=== PATIENT | female | born 1945 | race Caucasian/White ===

== ENCOUNTER 2018-06-15 10:57 | Inpatient (IN) ==
[2018-06-15] MEDS ORDERED: Sod Chloride 0.9% Inj 1,000 ML IV.SIG ONE (11:11)
--- NOTE | 2018-06-15 11:55 | XR ---
EXAM DATE: 06/15/2018 11:47 AM EDT AGE/SEX: 72 years / Female INDICATIONS: Shortness of breath and chest pain. CLINICAL DATA: This is the patient's initial encounter. Patient reports that signs and symptoms have been present for 2 days and indicates a pain score of 3/10. MEDICAL/SURGICAL HISTORY: None. None. COMPARISON: No prior exams available for comparison. FINDINGS: There is linear atelectasis at the left lung base. Minimal blunting of the right lateral costophrenic angle is noted. Heart size is enlarged. Degenerative changes of the spine and shoulders. CONCLUSION: Basilar atelectasis and possible tiny right effusion versus scarring. Electronically signed by: Austin Harman MD 06/15/2018 11:54 AM EDT
--- NOTE | 2018-06-15 13:28 | ED ---
HPI General Chief complaint: Nausea/Vomiting/Diarrhea Stated complaint: Nausea/D/V Time Seen by Provider: 06/15/18 11:04 Source: patient Mode of arrival: EMS Limitations: no limitations History of Present Illness HPI narrative: Patient is a 72 year old female who comes in due to diarrhea and lethargy. She says she started to have diarrhea Friday and had some vomiting Friday. She says she is caring for her father who is dieing. She says her cousin called EMS because she seemed dehydrated and lethargic. She says she had some abdominal pain, she took Miralax Friday, which helped with the pain. She denies fever or chills. She denies recent antibiotic use. She currently has no pain. Severity is moderate. Related Data Home Medications Medication Instructions Recorded Confirmed aspirin [Aspir-Low] 81 mg PO DAILY 06/15/18 06/15/18 cholecalciferol (vitamin D3) 2,000 unit PO DAILY 06/15/18 06/15/18 [Vitamin D3] ibuprofen 800 mg PO TID 06/15/18 06/15/18 omeprazole 20 mg PO DAILY 06/15/18 06/15/18 oxybutynin chloride 5 mg PO TID 06/15/18 06/15/18 simvastatin mg PO QPM 06/15/18 vit C,X-Mv-yaibc-lutein-zeaxan 1 tab PO BID 06/15/18 06/15/18 [PreserVision AREDS 2] Allergies Allergy/AdvReac Type Severity Reaction Status Date / Time erythromycin base Allergy Diarrhea Verified 06/15/18 11:12 Review of Systems ROS: all other systems reviewed are negative Constitutional Denies chills, Denies fever(s) and Reports lethargy ENT Denies dizziness Cardiovascular Denies chest pain Respiratory Denies cough and Denies dyspnea Gastrointestinal Reports diarrhea and Reports vomiting Genitourinary Denies dysuria Musculoskeletal Denies myalgias and Denies arthralgias Integumentary/Breasts Denies lesions and Denies rash Neurologic Denies focal weakness and Denies numbness PMFSH Social History Social History Substance History: No History of Abuse Smoking Status: Never smoker How Often Do You Have a Drink Containing Alcohol: Never Recent Travel in [facility] within the Last 8 Weeks: No Recent Out of Country Travel within the Last 8 Weeks: No Immunization History Tetanus Immunization: Unsure Hx Influenza Vaccine This Season: Yes Exam Narrative Exam Narrative: GENERAL: Awake and alert, in no acute distress. SKIN: Focused skin assessment warm/dry. HEAD: Atraumatic. Normocephalic. EYES: Pupils equal and round. No scleral icterus. No injection or drainage. ENT: No nasal bleeding or discharge. Mucous membranes dry. NECK: Trachea midline. No JVD. CARDIOVASCULAR: Tachycardia. No murmur appreciated. RESPIRATORY: No accessory muscle use. Clear to auscultation. Breath sounds equal bilaterally. GASTROINTESTINAL: Abdomen soft, non-tender, nondistended. MUSCULOSKELETAL: No obvious deformities. No clubbing. No cyanosis. No edema. NEUROLOGICAL: Awake and alert. No obvious cranial nerve deficits. Motor grossly within normal limits. Normal speech. PSYCHIATRIC: Appropriate mood and affect; insight and judgment normal. Course Initial Documented Vital Signs Temperature 97.8 F 06/15/18 11:04 Pulse Rate 120 H 06/15/18 11:04 Respiratory Rate 18 06/15/18 11:04 Blood Pressure 168/81 H 06/15/18 11:04 Pulse Oximetry 96 06/15/18 11:04 Last Documented Vital Signs Temperature 97.8 F 06/15/18 11:04 Pulse Rate 118 H 06/15/18 15:27 Respiratory Rate 20 06/15/18 15:27 Blood Pressure 150/84 H 06/15/18 15:27 Pulse Oximetry 96 06/15/18 15:27 Medical Decision Making MDM Narrative Medical decision making narrative: Patient is a 72 year old female who comes in due to diarrhea and lethargy. IV established, labs sent. Labs concerning for acute renal failure with a BUN of 83 and a creatinine of 3.8. CAT scan performed shows bilateral obstructing renal stones. Patient given IV fluids. Given a dose of Rocephin. I spoke with urology who would like the patient transferred to the main hospital for likely intervention. Patient admitted for further management. Medical Screen Exam Complete: Yes Emergency Medical Condition: Yes Differential Diagnosis Differential Diagnosis: Dehydration versus electrolyte abnormality versus colitis versus UTI Medical Records Medical records reviewed: Yes I reviewed the patient's medical records. Lab Data Lab results reviewed: Yes I reviewed the patient's lab results. Result diagrams: 06/15/18 13:15 06/15/18 13:15 Lab Results 06/15/18 06/15/18 06/15/18 Range/Units 12:15 13:15 13:15 CBC w Diff Slide review pending WBC 15.9 H (4.0-11.0) th/mm3 RBC 4.48 (4.00-5.30) mil/mm3 Hgb 13.2 (11.6-15.3) gm/dL Hct 39.5 (35.0-46.0) % MCV 88.2 (80.0-100.0) fL MCH 29.4 (27.0-34.0) pg MCHC 33.4 (32.0-36.0) % RDW 13.3 (11.6-17.2) % Plt Count 342 (150-450) th/mm3 MPV 7.9 (7.0-11.0) fL Neut % (Auto) 90.2 H (16.0-70.0) % Lymph % (Auto) 5.1 L (9.0-44.0) % [place] % (Auto) 3.8 (0.0-8.0) % Eos % (Auto) 0.1 (0.0-4.0) % Baso % (Auto) 0.8 (0.0-2.0) % Neut # (Auto) 14.4 H (1.8-7.7) th/mm3 Lymph # (Auto) 0.8 L (1.0-4.8) th/mm3 [place] # (Auto) 0.6 (0.0-0.9) th/mm3 Eos # (Auto) 0.0 (0.0-0.4) th/mm3 Baso # (Auto) 0.1 (0.0-0.2) th/mm3 WBC Differential Manual diff final Seg Neuts % (Manual) 59 (16-70) % Band Neuts % (Manual) 30 H (0-6) % Lymphocytes % (Manual) 5 L (9-44) % Monocytes % (Manual) 5 (0-8) % Metamyelocytes % (Man) 1 (0-1) % Abs Neuts (Manual) 14.3 H (1.8-7.7) th/mm3 Differential Comment . Platelet Estimate Normal (Normal) Platelet Morphology Normal (Normal) RBC Morphology Normal (Normal) PT 13.7 H (9.8-11.6) sec INR 1.4 Ratio APTT 32.1 H (24.3-30.1) sec Sodium (136-145) meq/L Potassium (3.5-5.1) meq/L Chloride (98-107) meq/L Carbon Dioxide (21.0-32.0) meq/L Anion Gap (5-15) meq/L BUN (7-18) mg/dL Creatinine (0.50-1.00) mg/dL Estimated GFR (>89) mL/min Random Glucose (74-106) mg/dL Lactic Acid 1.0 (0.4-2.0) mmol/L Calcium (8.5-10.1) mg/dL Total Bilirubin (0.2-1.0) mg/dL AST (15-37) U/L ALT (10-53) U/L Alkaline Phosphatase (45-117) U/L Total Creatine Kinase (26-192) U/L CK-MB (CK-2) (0.5-3.6) ng/mL CK-MB (CK-2) % (0.0-4.0) % Troponin I (0.02-0.05) ng/mL Total Protein (6.4-8.2) g/dL Albumin (3.4-5.0) g/dL Ur Collection Type Urine Color (Yellw/Straw) Urine Clarity (Clear) Urine pH (5.0-8.5) Ur Specific [place] (1.002-1.035) Urine Protein (Neg-Trace) mg/dL Urine Glucose (UA) (Negative) mg/dL Urine Ketones (Negative) mg/dL Urine Occult Blood (Negative) Urine Nitrate (Negative) Urine Bilirubin (Negative) Urine Urobilinogen (Less than 2) mg/dL Ur Leukocyte Esterase (Negative) Urine RBC (0-3) /hpf Urine WBC (0-5) /hpf Urine WBC Clumps (None) Ur Squamous Epith Cells (0-5) /hpf Ur Transition Epith Cell (None) /hpf Amorphous Sediment (None) /hpf Urine Bacteria (None) /hpf Micro UA Comment Ur Microscopic Review Urine Culture Comments Urine Collection Time hours 06/15/18 06/15/18 Range/Units 13:15 14:00 CBC w Diff WBC (4.0-11.0) th/mm3 RBC (4.00-5.30) mil/mm3 Hgb (11.6-15.3) gm/dL Hct (35.0-46.0) % MCV (80.0-100.0) fL MCH (27.0-34.0) pg MCHC (32.0-36.0) % RDW (11.6-17.2) % Plt Count (150-450) th/mm3 MPV (7.0-11.0) fL Neut % (Auto) (16.0-70.0) % Lymph % (Auto) (9.0-44.0) % [place] % (Auto) (0.0-8.0) % Eos % (Auto) (0.0-4.0) % Baso % (Auto) (0.0-2.0) % Neut # (Auto) (1.8-7.7) th/mm3 Lymph # (Auto) (1.0-4.8) th/mm3 [place] # (Auto) (0.0-0.9) th/mm3 Eos # (Auto) (0.0-0.4) th/mm3 Baso # (Auto) (0.0-0.2) th/mm3 WBC Differential Seg Neuts % (Manual) (16-70) % Band Neuts % (Manual) (0-6) % Lymphocytes % (Manual) (9-44) % Monocytes % (Manual) (0-8) % Metamyelocytes % (Man) (0-1) % Abs Neuts (Manual) (1.8-7.7) th/mm3 Differential Comment Platelet Estimate (Normal) Platelet Morphology (Normal) RBC Morphology (Normal) PT (9.8-11.6) sec INR Ratio APTT (24.3-30.1) sec Sodium 135 L (136-145) meq/L Potassium 3.6 (3.5-5.1) meq/L Chloride 107 (98-107) meq/L Carbon Dioxide 11.2 L (21.0-32.0) meq/L Anion Gap 17 H (5-15) meq/L BUN 83 H (7-18) mg/dL Creatinine 3.80 H (0.50-1.00) mg/dL Estimated GFR 12 L (>89) mL/min Random Glucose 106 (74-106) mg/dL Lactic Acid (0.4-2.0) mmol/L Calcium 8.5 (8.5-10.1) mg/dL Total Bilirubin 0.3 (0.2-1.0) mg/dL AST 19 (15-37) U/L ALT 15 (10-53) U/L Alkaline Phosphatase 155 H (45-117) U/L Total Creatine Kinase 251 H (26-192) U/L CK-MB (CK-2) 8.3 H (0.5-3.6) ng/mL CK-MB (CK-2) % 3.3 (0.0-4.0) % Troponin I Less than 0.02 L (0.02-0.05) ng/mL Total Protein 6.5 (6.4-8.2) g/dL Albumin 2.2 L (3.4-5.0) g/dL Ur Collection Type Clean catch Urine Color Yellow (Yellw/Straw) Urine Clarity Cloudy H (Clear) Urine pH 6.0 (5.0-8.5) Ur Specific [place] 1.020 (1.002-1.035) Urine Protein 30 H (Neg-Trace) mg/dL Urine Glucose (UA) Negative (Negative) mg/dL Urine Ketones Negative (Negative) mg/dL Urine Occult Blood Moderate H (Negative) Urine Nitrate Negative (Negative) Urine Bilirubin Negative (Negative) Urine Urobilinogen 0.2 (Less than 2) mg/dL Ur Leukocyte Esterase Moderate H (Negative) Urine RBC 15-50 H (0-3) /hpf Urine WBC 51-189 H (0-5) /hpf Urine WBC Clumps Moderate H (None) Ur Squamous Epith Cells 6-10 H (0-5) /hpf Ur Transition Epith Cell 1-5 H (None) /hpf Amorphous Sediment Moderate H (None) /hpf Urine Bacteria Moderate H (None) /hpf Micro UA Comment Culture indicated Ur Microscopic Review Microscopic reviewed Urine Culture Comments Culture indicated Urine Collection Time 1400 hours Imaging Data Radiologist's impression: Chest X-Ray 06/15/18 11:11 CONCLUSION: Basilar atelectasis and possible tiny right effusion versus scarring. Head CT 06/15/18 11:11 CONCLUSION: 1. No acute findings. . Abdomen/Pelvis CT 06/15/18 13:56 There are degenerative changes of the spine noted. Severe osteoarthritis of the right hip is present with a remote fracture deformity of the right femoral neck. No pleural or pericardial effusions are seen. Cholelithiasis is identified. Spleen, liver, pancreas, bilateral adrenal glands unremarkable. Small hiatal hernia. Right kidney demonstrates a nonobstructing stone at the upper pole measuring 3.8 mm. There are nonobstructing stones at the lower pole measuring up to 1.3 cm in transverse dimension. There is moderate right-sided hydronephrosis secondary to an obstructing calculus within the proximal ureter measuring 9.2 mm on axial image 43. There are 2 tiny calculi measuring 4.1 mm across at the lower pole of the left kidney and a 9 mm left proximal ureteral stone on image 45. There is moderate left-sided hydronephrosis. 3.69 m simple cyst left lower pole kidney. Urinary bladder and uterus are unremarkable. There is diverticulosis of the sigmoid colon with abnormal circumferential bowel wall thickening involving the sigmoid colon through the ascending colon with mild induration of the pericolonic fat concerning for colitis. The appendix is normal. There is a fat-containing umbilical hernia measuring 2.2 cm at the abdominal wall in transverse dimension, hernia sac measuring 6.6 cm in transverse dimension. Uterus and adnexa are unremarkable. CONCLUSION: 1. Bilateral renal calculi and obstructing proximal ureteral stones are noted. 2. Small hiatal hernia. 3. Abnormal colonic wall thickening is seen concerning for colitis. 4. Fat-containing umbilical hernia. 5. Cholelithiasis. ECG Data EKG Prior to Arrival: No Attestation: I personally reviewed and interpreted this ECG as follows: Interpretation: ECG shows sinus tachycardia at a rate of 116, no ST elevation or depression Discharge Plan Discharge Disposition Patient Disposition: 30 Still Patient Discharge Condition Condition: Stable Discharge Details Diagnosis: Acute renal failure (ARF), Acute UTI, Renal calculi Physicians Team ED Provider: Birgit Grant Primary Care Provider: Do Sarah Barreto Rxs /Orders / Referrals /Forms Prescriptions: No Action ibuprofen 800 mg Tablet 800 mg PO TID RF: 0 aspirin [Aspir-Low] 81 mg Tablet,Delayed Release (Dr/Ec) 81 mg PO DAILY RF: 0 simvastatin 20 mg Tablet PO QPM RF: 0 oxybutynin chloride 5 mg Tablet 5 mg PO TID RF: 0 omeprazole 20 mg Tablet,Delayed Release (Dr/Ec) 20 mg PO DAILY RF: 0 cholecalciferol (vitamin D3) [Vitamin D3] 2,000 unit Tablet 2,000 unit PO DAILY RF: 0 vit C,V-Jw-vlhil-lutein-zeaxan [PreserVision AREDS 2] 628-188-32-1 mg-unit-mg- mg Capsule 1 tab PO BID RF: 0 Discharge Interventions Interventions: Vital Signs Last Done: 06/15/18 15:27 Status ED Status: With Doctor
[2018-06-15 13:30] LABS: Baso # (Auto) 0.1 th/mm3 (0.0-0.2); Baso % (Auto) 0.8 % (0.0-2.0); Eos % (Auto) 0.1 % (0.0-4.0); Hematocrit 39.5 % (35.0-46.0); Hemoglobin 13.2 gm/dL (11.6-15.3); Lymph # (Auto) 0.8 th/mm3 (1.0-4.8); Lymph % (Auto) 5.1 % (9.0-44.0); Mean Corpuscular HGB Conc 33.4 % (32.0-36.0); Mean Corpuscular Hemoglobin 29.4 pg (27.0-34.0); Mean Corpuscular Volume 88.2 fL (80.0-100.0); Mean Platelet Volume 7.9 fL (7.0-11.0); Mono # (Auto) 0.6 th/mm3 (0.0-0.9); Mono % (Auto) 3.8 % (0.0-8.0); Neut # (Auto) 14.4 th/mm3 (1.8-7.7); Neut % (Auto) 90.2 % (16.0-70.0); Platelet Count 342 th/mm3 (150-450); Red Blood Count 4.48 mil/mm3 (4.00-5.30); Red Cell Distribution Width 13.3 % (11.6-17.2); White Blood Count 15.9 th/mm3 (4.0-11.0)
[2018-06-15 13:40] LABS: Chloride 107 meq/L (98-107); Potassium 3.6 meq/L (3.5-5.1); Sodium 135 meq/L (136-145)
[2018-06-15 13:44] LABS: Albumin 2.2 g/dL (3.4-5.0); Anion Gap 17 meq/L (5-15); Blood Urea Nitrogen 83 mg/dL (7-18); Calcium 8.5 mg/dL (8.5-10.1); Carbon Dioxide 11.2 meq/L (21.0-32.0); Glucose,Random 106 mg/dL (74-106)
[2018-06-15 13:46] LABS: Activated Partial Thrombo Time 32.1 sec (24.3-30.1); INR 1.4 Ratio; Prothrombin Time 13.7 sec (9.8-11.6)
[2018-06-15 13:47] LABS: Alanine Aminotransferase 15 U/L (10-53); Aspartate Aminotransferase 19 U/L (15-37); Glomerular Filtration Rate 12 mL/min (>89)
[2018-06-15 13:49] LABS: Total Protein 6.5 g/dL (6.4-8.2)
[2018-06-15 13:50] LABS: Alkaline Phosphatase 155 U/L (45-117); Creatine Kinase 251 U/L (26-192)
[2018-06-15 13:55] LABS: Lymphocytes 5 % (9-44); Metamyelocytes 1 % (0-1); Monocytes 5 % (0-8); Platelet Estimate Normal (Normal); Platelet Morphology Normal (Normal); RBC Morphology Normal (Normal)
[2018-06-15 14:02] LABS: CKMB Percent 3.3 % (0.0-4.0); Creatine Kinase MB 8.3 ng/mL (0.5-3.6)
[2018-06-15 14:14] LABS: Bilirubin,Urine Negative (Negative); Clarity,Urine Cloudy (Clear); Color,Urine Yellow (Yellw/Straw); Glucose,Urine (UA) Negative (Negative); Leukocyte Esterase,Urine Moderate (Negative); Nitrite,Urine Negative (Negative); Urobilinogen,Urine 0.2 mg/dL (Less than 2)
[2018-06-15 14:31] LABS: Collection Time,Urine 1400 hours
[2018-06-15 14:36] LABS: WBC,Urine 51-189 /hpf (0-5)
[2018-06-15] MEDS: Sod Chloride 0.9% Inj 1,000 ML IV.SIG SCH (14:36)
[2018-06-15 14:44] LABS: Amorphous Sediment,Urine Moderate /hpf; Bacteria,Urine Moderate /hpf
--- NOTE | 2018-06-15 14:46 | CT ---
EXAM DATE: 06/15/2018 2:42 PM EDT AGE/SEX: 72 years / Female INDICATIONS: Lethargic CLINICAL DATA: This is the patient's initial encounter. Patient reports that signs and symptoms have been present for 1 day and indicates a pain score of 0/10. MEDICAL/SURGICAL HISTORY: None. None. RADIATION DOSE: 49.27 CTDI (mGy) COMPARISON: No prior exams available for comparison. TECHNIQUE: CT of the head without contrast. Using automated exposure control and adjustment of the mA and/or kV according to patient size, radiation dose was kept as low as reasonably achievable to ob tain optimal diagnostic quality images. DICOM format image data is available electronically for revi ew and comparison. FINDINGS: Subcentimeter focus of decreased attenuation in the right basal ganglia internal capsule region havmarci g the appearance of a remote lacunar infarct. No signs of acute infarct, hemorrhage or mass. No fract ures. CONCLUSION: 1. No acute findings. . Electronically signed by: Austin Harman MD 06/15/2018 2:44 PM EDT
--- NOTE | 2018-06-15 14:55 | CT ---
EXAM DATE: 06/15/2018 2:46 PM EDT AGE/SEX: 72 years / Female INDICATIONS: Nausea vomiting diarrhea CLINICAL DATA: This is the patient's initial encounter. Patient reports that signs and symptoms have been present for 1 day and indicates a pain score of 0/10. MEDICAL/SURGICAL HISTORY: None. None. RADIATION DOSE: 24.92 CTDI (mGy) COMPARISON: No prior exams available for comparison. TECHNIQUE: Multiple contiguous axial images were obtained through the abdomen. Images were obtained using multiple row detector helical technique. Using automated exposure control and adjustment of the mA and/or kV according to patient size, radiation dose was kept as low as reasonably achievable to o btain optimal diagnostic quality images. DICOM format image data is available electronically for rev iew and comparison. FINDINGS: There are degenerative changes of the spine noted. Severe osteoarthritis of the right hip is present with a remote fracture deformity of the right femoral neck. No pleural or pericardial effusions are s een. Cholelithiasis is identified. Spleen, liver, pancreas, bilateral adrenal glands unremarkable. Sm all hiatal hernia. Right kidney demonstrates a nonobstructing stone at the upper pole measuring 3.8 m m. There are nonobstructing stones at the lower pole measuring up to 1.3 cm in transverse dimension. There is moderate right-sided hydronephrosis secondary to an obstructing calculus within the proximal ureter measuring 9.2 mm on axial image 43. There are 2 tiny calculi measuring 4.1 mm across at the l ower pole of the left kidney and a 9 mm left proximal ureteral stone on image 45. There is moderate l eft-sided hydronephrosis. 3.69 m simple cyst left lower pole kidney. Urinary bladder and uterus are u nremarkable. There is diverticulosis of the sigmoid colon with abnormal circumferential bowel wall th ickening involving the sigmoid colon through the ascending colon with mild induration of the pericolo annamaria fat concerning for colitis. The appendix is normal. There is a fat-containing umbilical hernia me asuring 2.2 cm at the abdominal wall in transverse dimension, hernia sac measuring 6.6 cm in transver se dimension. Uterus and adnexa are unremarkable. CONCLUSION: 1. Bilateral renal calculi and obstructing proximal ureteral stones are noted. 2. Small hiatal hernia. 3. Abnormal colonic wall thickening is seen concerning for colitis. 4. Fat-containing umbilical hernia. 5. Cholelithiasis. Electronically signed by: Austin Harman MD 06/15/2018 2:54 PM EDT
[2018-06-15] MEDS ORDERED: Bisacodyl 10 MG Supp RECTAL PRN (15:34)
[2018-06-15] MEDS ORDERED: Acetaminophen 325 MG Tablet PO PRN (15:34)
[2018-06-15] MEDS: Sod Chloride 0.9% Inj 1,000 ML IV.CONT SCH (16:03)
[2018-06-15] MEDS ORDERED: Metoprolol Inj 5 MG/5 ML Vial IV.PUSH ONE (16:10)
[2018-06-15] MEDS ORDERED: Metoprolol Inj 5 MG/5 ML Vial IV.PUSH STA ×2 (16:11→16:55)
--- NOTE | 2018-06-15 17:10 | P.HP ---
History of Present Illness Service: Hospitalist Primary Care Physician: Do Sarah Barreto Chief Complaint: Nausea, vomiting, diarrhea. History of Present Illness: Ms. Mac was seen in the emergency room. She is somewhat lethargic and drowsy and thus difficult to obtain proper history and physical. Ms. Mac is a 72-year-old female with a history of hyperlipidemia, GERD who presents to the emergency department on 06/15/2018 due to nausea vomiting and diarrhea. Her symptoms started on 06/12/2018. One of patient's family members called EMS because she was very lethargic and appeared dehydrated. CT abdomen pelvis shows bilateral renal calculi and obstructing proximal ureteral stones. Moderate left-sided hydronephrosis was noted. Patient's creatinine is 3.8 on admission baseline unknown. WBC 15.9. Later during ED stay, patient developed atrial fibrillation for which she received IV metoprolol. - Diagnosis (1) Hydronephrosis (2) Acute kidney injury (3) Renal calculi Inpatient Certification: I certify that the inpatient services were ordered in accordance with Medicare regulations governing the order. 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 - Medical / Surgical Hx Neg / Unobtainable Medical Problems Denied: Unable to Obtain - Tobacco History Smoking Status: Never smoker - Alcohol History How Often Do You Have a Drink Containing Alcohol: Never - Substance Use History Substance History: No History of Abuse - Travel History Recent Travel in the [place] Within the Last 8 Weeks: No Recent Travel Out of the Country Within the Last 8 Weeks: No - Immunization History Tetanus Immunization: Unsure Hx Influenza Vaccine This Season: Yes Medications and Allergies Active Medications: Active Medications Acetaminophen (Tylenol) 650 mg PO Q4H PRN PRN Reason: Headache, fever, pain 1-5 Al Hydroxide/Mg Hydroxide (Milk Of Magnesia Liq) 30 ml PO Q12H PRN PRN Reason: Mild Constipation Bisacodyl (Dulcolax Supp) 10 mg RECTAL DAILY PRN PRN Reason: SEVERE CONSITIPATION Sodium Chloride (Ns Inj) 1,000 mls @ 0 mls/hr IV.SIG BOLUS [facility] Last Infusion: 06/15/18 15:26 Dose: Infused Sodium Chloride (Ns Inj) 1,000 mls @ 100 mls/hr IV.CONT .Q10H [facility] Last Admin: 06/15/18 16:03 Dose: 100 mls/hr Lactulose (Lactulose Liq) 30 ml PO DAILY PRN PRN Reason: SEVERE CONSITIPATION Ondansetron HCl (Zofran Inj) 4 mg IV.PUSH Q6H PRN PRN Reason: NAUSEA OR VOMITING Sennosides (Senokot) 17.2 mg PO Q12H PRN PRN Reason: Moderate Constipation Sodium Chloride (Ns Flush) 2 ml IV.FLUSH PRN PRN PRN Reason: FLUSH AFTER USING IV ACCESS Allergies Allergy/AdvReac Type Severity Reaction Status Date / Time erythromycin base Allergy Diarrhea Verified 06/15/18 11:12 Home Medications Medication Instructions Recorded Confirmed Type aspirin [Aspir-Low] 81 mg PO DAILY 06/15/18 06/15/18 History cholecalciferol (vitamin D3) 2,000 unit PO DAILY 06/15/18 06/15/18 History [Vitamin D3] ibuprofen 800 mg PO TID 06/15/18 06/15/18 History omeprazole 20 mg PO DAILY 06/15/18 06/15/18 History oxybutynin chloride 5 mg PO TID 06/15/18 06/15/18 History simvastatin mg PO QPM 06/15/18 History vit C,E-Vn-qkomu-lutein-zeaxan 1 tab PO BID 06/15/18 06/15/18 History [PreserVision AREDS 2] Exam Vital signs: Vital Signs 06/15/18 11:04 06/15/18 14:06 06/15/18 15:27 Temperature 97.8 F Pulse Rate 120 H 105 H 118 H Respiratory Rate 18 20 20 Blood Pressure 168/81 H 150/84 H 150/84 H Pulse Oximetry 96 97 96 06/15/18 16:05 06/15/18 16:28 06/15/18 17:07 Temperature Pulse Rate 131 H 108 H 104 H Respiratory Rate 18 18 20 Blood Pressure 155/84 H 113/84 153/86 H Pulse Oximetry 96 96 96 Intake & Output 06/14/18 06/15/18 06/15/18 18:59 06:59 18:59 Intake Total 2099 Output Total 200 / 200 Balance 1900 / 1900 Weight 113.398 kg Intake: IV 2099 NS Inj 1,000 ML @ Wide Open IV. 1999 SIG BOLUS [place] Rx#:[id number] Rocephin Inj 1,000 MG In NS Inj 100 / 100 100 ML @ 200 mls/hr IV.SIG ONCE ONE Rx#:[id number] Output: Urine 200 / 200 Other: # Voids 1 Narrative: GENERAL: Drowsy and Lethargic. Wakes up on verbal commands but unable to give much history. However, she is oriented to person, place, month/year and name of the president. Obese. SKIN: No rashes, ecchymoses or lesions. Warm and dry. HEAD: Atraumatic. Normocephalic. No temporal or scalp tenderness. EYES: Pupils equal round and reactive. No injection or drainage. ENT: Nose without bleeding, purulent drainage or septal hematoma. Airway patent. NECK: Trachea midline. No lymphadenopathy. Supple, nontender, no meningeal signs. CARDIOVASCULAR: Tachycardic, Irreg Irreg without murmurs, gallops, or rubs. No JVD. RESPIRATORY: Clear to auscultation. Breath sounds equal bilaterally. No wheezes , rales, or rhonchi. GASTROINTESTINAL: Abdomen soft, non-tender, nondistended. No guarding. MUSCULOSKELETAL: Extremities without clubbing, cyanosis. Trace edema, tender to palpation of lower ext. NEUROLOGICAL: Drowsy, lethargic. Results - Labs CBC & Chem 7: 06/15/18 13:15 06/15/18 13:15 Labs: Laboratory Results - last 24 hr 06/15/18 06/15/18 06/15/18 12:15 13:15 13:15 CBC w Diff Slide review pending WBC 15.9 H RBC 4.48 Hgb 13.2 Hct 39.5 MCV 88.2 MCH 29.4 MCHC 33.4 RDW 13.3 Plt Count 342 MPV 7.9 Neut % (Auto) 90.2 H Lymph % (Auto) 5.1 L Boyd % (Auto) 3.8 Eos % (Auto) 0.1 Baso % (Auto) 0.8 Neut # (Auto) 14.4 H Lymph # (Auto) 0.8 L Boyd # (Auto) 0.6 Eos # (Auto) 0.0 Baso # (Auto) 0.1 WBC Differential Manual diff final Seg Neuts % (Manual) 59 Band Neuts % (Manual) 30 H Lymphocytes % (Manual) 5 L Monocytes % (Manual) 5 Metamyelocytes % (Man) 1 Abs Neuts (Manual) 14.3 H Differential Comment . Platelet Estimate Normal Platelet Morphology Normal RBC Morphology Normal PT 13.7 H INR 1.4 APTT 32.1 H Sodium Potassium Chloride Carbon Dioxide Anion Gap BUN Creatinine Estimated GFR Random Glucose Lactic Acid 1.0 Calcium Total Bilirubin AST ALT Alkaline Phosphatase Total Creatine Kinase CK-MB (CK-2) CK-MB (CK-2) % Troponin I Total Protein Albumin Ur Collection Type Urine Color Urine Clarity Urine pH Ur Specific [place] Urine Protein Urine Glucose (UA) Urine Ketones Urine Occult Blood Urine Nitrate Urine Bilirubin Urine Urobilinogen Ur Leukocyte Esterase Urine RBC Urine WBC Urine WBC Clumps Ur Squamous Epith Cells Ur Transition Epith Cell Amorphous Sediment Urine Bacteria Micro UA Comment Ur Microscopic Review Urine Culture Comments Urine Collection Time 06/15/18 06/15/18 13:15 14:00 CBC w Diff WBC RBC Hgb Hct MCV MCH MCHC RDW Plt Count MPV Neut % (Auto) Lymph % (Auto) Boyd % (Auto) Eos % (Auto) Baso % (Auto) Neut # (Auto) Lymph # (Auto) Boyd # (Auto) Eos # (Auto) Baso # (Auto) WBC Differential Seg Neuts % (Manual) Band Neuts % (Manual) Lymphocytes % (Manual) Monocytes % (Manual) Metamyelocytes % (Man) Abs Neuts (Manual) Differential Comment Platelet Estimate Platelet Morphology RBC Morphology PT INR APTT Sodium 135 L Potassium 3.6 Chloride 107 Carbon Dioxide 11.2 L Anion Gap 17 H BUN 83 H Creatinine 3.80 H Estimated GFR 12 L Random Glucose 106 Lactic Acid Calcium 8.5 Total Bilirubin 0.3 AST 19 ALT 15 Alkaline Phosphatase 155 H Total Creatine Kinase 251 H CK-MB (CK-2) 8.3 H CK-MB (CK-2) % 3.3 Troponin I Less than 0.02 L Total Protein 6.5 Albumin 2.2 L Ur Collection Type Clean catch Urine Color Yellow Urine Clarity Cloudy H Urine pH 6.0 Ur Specific [place] 1.020 Urine Protein 30 H Urine Glucose (UA) Negative Urine Ketones Negative Urine Occult Blood Moderate H Urine Nitrate Negative Urine Bilirubin Negative Urine Urobilinogen 0.2 Ur Leukocyte Esterase Moderate H Urine RBC 15-50 H Urine WBC 51-189 H Urine WBC Clumps Moderate H Ur Squamous Epith Cells 6-10 H Ur Transition Epith Cell 1-5 H Amorphous Sediment Moderate H Urine Bacteria Moderate H Micro UA Comment Culture indicated Ur Microscopic Review Microscopic reviewed Urine Culture Comments Culture indicated Urine Collection Time 1400 - Imaging Impressions Chest X-Ray 06/15/18 11:11 CONCLUSION: Basilar atelectasis and possible tiny right effusion versus scarring. Head CT 06/15/18 11:11 CONCLUSION: 1. No acute findings. . Abdomen/Pelvis CT 06/15/18 13:56 There are degenerative changes of the spine noted. Severe osteoarthritis of the right hip is present with a remote fracture deformity of the right femoral neck. No pleural or pericardial effusions are seen. Cholelithiasis is identified. Spleen, liver, pancreas, bilateral adrenal glands unremarkable. Small hiatal hernia. Right kidney demonstrates a nonobstructing stone at the upper pole measuring 3.8 mm. There are nonobstructing stones at the lower pole measuring up to 1.3 cm in transverse dimension. There is moderate right-sided hydronephrosis secondary to an obstructing calculus within the proximal ureter measuring 9.2 mm on axial image 43. There are 2 tiny calculi measuring 4.1 mm across at the lower pole of the left kidney and a 9 mm left proximal ureteral stone on image 45. There is moderate left-sided hydronephrosis. 3.69 m simple cyst left lower pole kidney. Urinary bladder and uterus are unremarkable. There is diverticulosis of the sigmoid colon with abnormal circumferential bowel wall thickening involving the sigmoid colon through the ascending colon with mild induration of the pericolonic fat concerning for colitis. The appendix is normal. There is a fat-containing umbilical hernia measuring 2.2 cm at the abdominal wall in transverse dimension, hernia sac measuring 6.6 cm in transverse dimension. Uterus and adnexa are unremarkable. CONCLUSION: 1. Bilateral renal calculi and obstructing proximal ureteral stones are noted. 2. Small hiatal hernia. 3. Abnormal colonic wall thickening is seen concerning for colitis. 4. Fat-containing umbilical hernia. 5. Cholelithiasis. Caprini VTE Risk Assessment Caprini VTE Risk Assessment: No/Low Risk (score <= 1) Caprini Risk Assessment Model: Point Value = 1 Point Value = 2 Point Value = 3 Point Value = 5 Age 41-60 Minor surgery BMI > 25 kg/m2 Swollen legs Varicose veins or History of unexplained or recurrent spontaneous Oral contraceptives or hormone replacement Sepsis (< 1 month) Serious lung disease, including pneumonia (< 1 month) Abnormal pulmonary function Acute myocardial infarction Congestive heart failure (< 1 month) History of inflammatory bowel disease Medical patient at bed rest Age 61-74 Arthroscopic surgery Major open surgery (> 45 min) Laparoscopic surgery (> 45 min) Malignancy Confined to bed (> 72 hours) Immobilizing plaster cast Central venous access Age >= 75 History of VTE Family history of VTE Factor V Leiden Prothrombin [id number] Lupus anticoagulant Anticardiolipin antibodies Elevated serum homocysteine Heparin-induced thrombocytopenia Other congenital or acquired thrombophilia Stroke (< 1 month) Elective arthroplasty Hip, pelvis, or leg fracture Acute spinal cord injury (< 1 month) Prophylaxis Regimen: Total Risk Factor Score Risk Level Prophylaxis Regimen 0-1 Low Early ambulation 2 Moderate Order ONE of the following: *Sequential Compression Device (SCD) *Heparin 5000 units SQ BID 3-4 Higher Order ONE of the following medications: *Heparin 5000 units SQ TID *Enoxaparin/Lovenox 40 mg SQ daily (WT < 150 kg, CrCl > 30 mL/min) *Enoxaparin/Lovenox 30 mg SQ daily (WT < 150 kg, CrCl > 10-29 mL/min) *Enoxaparin/Lovenox 30 mg SQ BID (WT < 150 kg, CrCl > 30 mL/min) AND/OR *Sequential Compression Device (SCD) 5 or more Highest Order ONE of the following medications: *Heparin 5000 units SQ TID (Preferred with Epidurals) *Enoxaparin/Lovenox 40 mg SQ daily (WT < 150 kg, CrCl > 30 mL/min) *Enoxaparin/Lovenox 30 mg SQ daily (WT < 150 kg, CrCl > 10-29 mL/min) *Enoxaparin/Lovenox 30 mg SQ BID (WT < 150 kg, CrCl > 30 mL/min) AND *Sequential Compression Device (SCD) Assessment and Plan - Assessment (1) Hydronephrosis Code(s): N13.30 - Unspecified hydronephrosis Status: Acute (2) Acute kidney injury Code(s): N17.9 - Acute kidney failure, unspecified Status: Acute (3) Renal calculi Code(s): N20.0 - Calculus of kidney Status: Acute - Plan Ms. Mac is a 72-year-old female with a history of GERD, hyperlipidemia who presented to the emergency department due to nausea vomiting and diarrhea that started on 06/12/2018. ED evaluation indicated hydronephrosis on the left side as well as renal stone. Her creatinine is also elevated to 3.8. Baseline unknown. Patient also developed atrial fibrillation. Sepsis (WBC 15.9K, Heart rate over 100, suspected infection - UTI). Possible urinary tract infection Nephrolithiasis Left sided hydronephrosis - ED provider discussed with Urology (Dr. Lemon) who recommended patient to be transferred to the main hospital. - Continue Ceftriaxone 1g Qday. - IV fluid NS 100cc/hour. - Morphine 4mg IV Q4hrs PRN for pain. Acute kidney injury - Baseline unknown. Cr 3.8 today. - Avoid Nephrotoxins. Will check BMP in the AM. New onset Atrial fibrillation Hypertension - Pt received Metoprolol IV. - Will start patient on Metoprolol 25mg Q8hrs - If BP remains high, consider Amlodipine or Nifedipine. Gastroenteritis - No further N/V/D in the ED. If sample is collected, will check C. Diff PCR. Full code. SCDs for now. Consider Heparin after Urological procedure.
[2018-06-15] MEDS ORDERED: Morphine Inj 4 MG/ML Vial IV.PUSH PRN (17:43)
--- NOTE | 2018-06-15 18:25 | P.PNURO ---
Subjective Patient symptoms today: Patient with bilateral ureteral stones and mild to moderate hydronephrosis. Left kidney appears to be atrophic. Elevated Cr. Patient to be transferred to [facility] from [place]. Plan for cysto bilateral ureteral stent placement. Objective Vital Signs: Vital Signs 06/15/18 11:04 06/15/18 14:06 06/15/18 15:27 Temperature 97.8 F Pulse Rate 120 H 105 H 118 H Respiratory Rate 18 20 20 Blood Pressure 168/81 H 150/84 H 150/84 H Pulse Oximetry 96 97 96 06/15/18 16:05 06/15/18 16:28 06/15/18 17:07 Temperature Pulse Rate 131 H 108 H 104 H Respiratory Rate 18 18 20 Blood Pressure 155/84 H 113/84 153/86 H Pulse Oximetry 96 96 96 Intake & Output 06/14/18 06/15/18 06/15/18 18:59 06:59 18:59 Intake Total 2300 / 2300 Output Total 200 / 200 Balance 2100 / 2100 Weight 113.398 kg Intake: IV 2300 / 2300 NS Inj 1,000 ML @ 100 mls/hr IV 200 / 200 .CONT .Q10H [place] Rx#:[id number] NS Inj 1,000 ML @ Wide Open IV. 1999 / 1999 SIG BOLUS [place] Rx#:[id number] Rocephin Inj 1,000 MG In NS Inj 100 / 100 100 ML @ 200 mls/hr IV.SIG ONCE ONE Rx#:[id number] Output: Urine 200 / 200 Other: # Voids 1 Result Diagrams: 06/15/18 13:15 06/15/18 13:15 Imaging: Impressions Chest X-Ray 06/15/18 11:11 CONCLUSION: Basilar atelectasis and possible tiny right effusion versus scarring. Head CT 06/15/18 11:11 CONCLUSION: 1. No acute findings. . Abdomen/Pelvis CT 06/15/18 13:56 There are degenerative changes of the spine noted. Severe osteoarthritis of the right hip is present with a remote fracture deformity of the right femoral neck. No pleural or pericardial effusions are seen. Cholelithiasis is identified. Spleen, liver, pancreas, bilateral adrenal glands unremarkable. Small hiatal hernia. Right kidney demonstrates a nonobstructing stone at the upper pole measuring 3.8 mm. There are nonobstructing stones at the lower pole measuring up to 1.3 cm in transverse dimension. There is moderate right-sided hydronephrosis secondary to an obstructing calculus within the proximal ureter measuring 9.2 mm on axial image 43. There are 2 tiny calculi measuring 4.1 mm across at the lower pole of the left kidney and a 9 mm left proximal ureteral stone on image 45. There is moderate left-sided hydronephrosis. 3.69 m simple cyst left lower pole kidney. Urinary bladder and uterus are unremarkable. There is diverticulosis of the sigmoid colon with abnormal circumferential bowel wall thickening involving the sigmoid colon through the ascending colon with mild induration of the pericolonic fat concerning for colitis. The appendix is normal. There is a fat-containing umbilical hernia measuring 2.2 cm at the abdominal wall in transverse dimension, hernia sac measuring 6.6 cm in transverse dimension. Uterus and adnexa are unremarkable. CONCLUSION: 1. Bilateral renal calculi and obstructing proximal ureteral stones are noted. 2. Small hiatal hernia. 3. Abnormal colonic wall thickening is seen concerning for colitis. 4. Fat-containing umbilical hernia. 5. Cholelithiasis. Medications and IVs: Active Medications Generic Name Dose Route Start Last Admin Trade Name Freq PRN Reason Stop Dose Admin Acetaminophen 650 mg 06/15/18 15:34 Tylenol PO Q4H PRN Headache, fever, pain 1-5 Al Hydroxide/Mg Hydroxide 30 ml 06/15/18 15:34 Milk Of Magnesia Liq PO Q12H PRN Mild Constipation Bisacodyl 10 mg 06/15/18 15:34 Dulcolax Supp RECTAL DAILY PRN SEVERE CONSITIPATION Sodium Chloride 1,000 mls @ 0 mls/hr 06/15/18 14:00 06/15/18 15:26 Ns Inj IV.SIG Infused BOLUS [place] Infusion Wide Open Sodium Chloride 1,000 mls @ 100 mls/hr 06/15/18 15:45 06/15/18 17:58 Ns Inj IV.CONT 100 mls/hr .Q10H [place] Infusion Ceftriaxone Sodium 1,000 mg/ 100 mls @ 200 mls/hr 06/16/18 09:00 Sodium Chloride IV.SIG Q24H [place] Lactulose 30 ml 06/15/18 15:34 Lactulose Liq PO DAILY PRN SEVERE CONSITIPATION Metoprolol Tartrate 25 mg 06/15/18 21:00 Lopressor PO BID [place] Morphine Sulfate 4 mg 06/15/18 17:43 Morphine Inj IV.PUSH Q4H PRN Pain 5-10 Ondansetron HCl 4 mg 06/15/18 15:34 Zofran Inj IV.PUSH Q6H PRN NAUSEA OR VOMITING Sennosides 17.2 mg 06/15/18 15:34 Senokot PO Q12H PRN Moderate Constipation Sodium Chloride 2 ml 06/15/18 11:11 Ns Flush IV.FLUSH PRN PRN FLUSH AFTER USING IV ACCESS
--- NOTE | 2018-06-15 18:49 | P.CONURO ---
History of Present Illness Service: urology Consult date: 06/15/18 Reason for Consult: nephrolithiasis Primary Care Provider: Do Sarah Barreto Chief Complaint: Nausea, vomiting, diarrhea. History of Present Illness: 72 yo female admitted due to N/V and diarrhea with signs of dehydration seen on consultation for bilateral nephrolithiasis. Patient denies any pain or discomfort and no history of kidney stones. CT scan identified bilateral ureteral stones on the left and right proximal ureter, both measuring 9mm in size with mild ot moderate hydronephrosis. She also has large stone burden within the right lower pole kidney. No fevers. Elevated WBC. Of note, patient just discovered her father and she appears appropriately upset, however limited responses on exam. 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 - Medical / Surgical Hx Neg / Unobtainable Medical Problems Denied: Unable to Obtain - Tobacco History Smoking Status: Never smoker - Alcohol History How Often Do You Have a Drink Containing Alcohol: Never - Substance Use History Substance History: No History of Abuse - Travel History Recent Travel in the [place] Within the Last 8 Weeks: No Recent Travel Out of the Country Within the Last 8 Weeks: No - Immunization History Tetanus Immunization: Unsure Hx Influenza Vaccine This Season: Yes Medications and Allergies Active Medications: Active Medications Acetaminophen (Tylenol) 650 mg PO Q4H PRN PRN Reason: Headache, fever, pain 1-5 Al Hydroxide/Mg Hydroxide (Milk Of Magnesia Liq) 30 ml PO Q12H PRN PRN Reason: Mild Constipation Bisacodyl (Dulcolax Supp) 10 mg RECTAL DAILY PRN PRN Reason: SEVERE CONSITIPATION Sodium Chloride (Ns Inj) 1,000 mls @ 0 mls/hr IV.SIG BOLUS [place] Last Infusion: 06/15/18 15:26 Dose: Infused Sodium Chloride (Ns Inj) 1,000 mls @ 100 mls/hr IV.CONT .Q10H [place] Last Infusion: 06/15/18 17:58 Dose: 100 mls/hr Ceftriaxone Sodium 1,000 mg/ (Sodium Chloride) 100 mls @ 200 mls/hr IV.SIG Q24H [place] Lactulose (Lactulose Liq) 30 ml PO DAILY PRN PRN Reason: SEVERE CONSITIPATION Metoprolol Tartrate (Lopressor) 25 mg PO BID [place] Morphine Sulfate (Morphine Inj) 4 mg IV.PUSH Q4H PRN PRN Reason: Pain 5-10 Ondansetron HCl (Zofran Inj) 4 mg IV.PUSH Q6H PRN PRN Reason: NAUSEA OR VOMITING Sennosides (Senokot) 17.2 mg PO Q12H PRN PRN Reason: Moderate Constipation Sodium Chloride (Ns Flush) 2 ml IV.FLUSH PRN PRN PRN Reason: FLUSH AFTER USING IV ACCESS Allergies Allergy/AdvReac Type Severity Reaction Status Date / Time erythromycin base Allergy Diarrhea Verified 06/15/18 11:12 Home Medications Medication Instructions Recorded Confirmed Type aspirin [Aspir-Low] 81 mg PO DAILY 06/15/18 06/15/18 History cholecalciferol (vitamin D3) 2,000 unit PO DAILY 06/15/18 06/15/18 History [Vitamin D3] ibuprofen 800 mg PO TID 06/15/18 06/15/18 History omeprazole 20 mg PO DAILY 06/15/18 06/15/18 History oxybutynin chloride 5 mg PO TID 06/15/18 06/15/18 History simvastatin mg PO QPM 06/15/18 History vit C,F-Ap-nplra-lutein-zeaxan 1 tab PO BID 06/15/18 06/15/18 History [PreserVision AREDS 2] Physical Exam Vital Signs - 24 hr 06/15/18 11:04 06/15/18 14:06 06/15/18 15:27 Temperature 97.8 F Pulse Rate 120 H 105 H 118 H Respiratory Rate 18 20 20 Blood Pressure 168/81 H 150/84 H 150/84 H Pulse Oximetry 96 97 96 06/15/18 16:05 06/15/18 16:28 06/15/18 17:07 Temperature Pulse Rate 131 H 108 H 104 H Respiratory Rate 18 18 20 Blood Pressure 155/84 H 113/84 153/86 H Pulse Oximetry 96 96 96 Physical Exam: GENERAL: This is a well-nourished, well-developed patient, in no apparent distress. SKIN: No rashes, ecchymoses or lesions. Cool and dry. HEAD: Atraumatic. Normocephalic. EYES: Extraocular motions intact. No scleral icterus. No injection or drainage. ENT: Nose without bleeding, purulent drainage. Airway patent. NECK: Trachea midline. No JVD or lymphadenopathy. CARDIOVASCULAR: Normal pulse RESPIRATORY: Nonlabored GASTROINTESTINAL: Abdomen soft, non-tender, nondistended. MUSCULOSKELETAL: Extremities without clubbing, cyanosis, or edema. NEUROLOGICAL: Awake and alert. Motor and sensory grossly within normal limits. Normal speech. Lab results reviewed: Yes Laboratory Results - last 24 hr 06/15/18 06/15/18 06/15/18 12:15 13:15 13:15 CBC w Diff Slide review pending WBC 15.9 H RBC 4.48 Hgb 13.2 Hct 39.5 MCV 88.2 MCH 29.4 MCHC 33.4 RDW 13.3 Plt Count 342 MPV 7.9 Neut % (Auto) 90.2 H Lymph % (Auto) 5.1 L [place] % (Auto) 3.8 Eos % (Auto) 0.1 Baso % (Auto) 0.8 Neut # (Auto) 14.4 H Lymph # (Auto) 0.8 L [place] # (Auto) 0.6 Eos # (Auto) 0.0 Baso # (Auto) 0.1 WBC Differential Manual diff final Seg Neuts % (Manual) 59 Band Neuts % (Manual) 30 H Lymphocytes % (Manual) 5 L Monocytes % (Manual) 5 Metamyelocytes % (Man) 1 Abs Neuts (Manual) 14.3 H Differential Comment . Platelet Estimate Normal Platelet Morphology Normal RBC Morphology Normal PT 13.7 H INR 1.4 APTT 32.1 H Sodium Potassium Chloride Carbon Dioxide Anion Gap BUN Creatinine Estimated GFR Random Glucose Lactic Acid 1.0 Calcium Magnesium Total Bilirubin AST ALT Alkaline Phosphatase Total Creatine Kinase CK-MB (CK-2) CK-MB (CK-2) % Troponin I Total Protein Albumin Ur Collection Type Urine Color Urine Clarity Urine pH Ur Specific [place] Urine Protein Urine Glucose (UA) Urine Ketones Urine Occult Blood Urine Nitrate Urine Bilirubin Urine Urobilinogen Ur Leukocyte Esterase Urine RBC Urine WBC Urine WBC Clumps Ur Squamous Epith Cells Ur Transition Epith Cell Amorphous Sediment Urine Bacteria Micro UA Comment Ur Microscopic Review Urine Culture Comments Urine Collection Time 06/15/18 06/15/18 06/15/18 13:15 13:15 14:00 CBC w Diff WBC RBC Hgb Hct MCV MCH MCHC RDW Plt Count MPV Neut % (Auto) Lymph % (Auto) [place] % (Auto) Eos % (Auto) Baso % (Auto) Neut # (Auto) Lymph # (Auto) [place] # (Auto) Eos # (Auto) Baso # (Auto) WBC Differential Seg Neuts % (Manual) Band Neuts % (Manual) Lymphocytes % (Manual) Monocytes % (Manual) Metamyelocytes % (Man) Abs Neuts (Manual) Differential Comment Platelet Estimate Platelet Morphology RBC Morphology PT INR APTT Sodium 135 L Potassium 3.6 Chloride 107 Carbon Dioxide 11.2 L Anion Gap 17 H BUN 83 H Creatinine 3.80 H Estimated GFR 12 L Random Glucose 106 Lactic Acid Calcium 8.5 Magnesium 2.5 Total Bilirubin 0.3 AST 19 ALT 15 Alkaline Phosphatase 155 H Total Creatine Kinase 251 H CK-MB (CK-2) 8.3 H CK-MB (CK-2) % 3.3 Troponin I Less than 0.02 L Total Protein 6.5 Albumin 2.2 L Ur Collection Type Clean catch Urine Color Yellow Urine Clarity Cloudy H Urine pH 6.0 Ur Specific [place] 1.020 Urine Protein 30 H Urine Glucose (UA) Negative Urine Ketones Negative Urine Occult Blood Moderate H Urine Nitrate Negative Urine Bilirubin Negative Urine Urobilinogen 0.2 Ur Leukocyte Esterase Moderate H Urine RBC 15-50 H Urine WBC 51-189 H Urine WBC Clumps Moderate H Ur Squamous Epith Cells 6-10 H Ur Transition Epith Cell 1-5 H Amorphous Sediment Moderate H Urine Bacteria Moderate H Micro UA Comment Culture indicated Ur Microscopic Review Microscopic reviewed Urine Culture Comments Culture indicated Urine Collection Time 1400 Result Diagrams: 06/15/18 13:15 06/15/18 13:15 Personally reviewed images: Yes Imaging: ITS Impressions Chest X-Ray 06/15/18 11:11 CONCLUSION: Basilar atelectasis and possible tiny right effusion versus scarring. Head CT 06/15/18 11:11 CONCLUSION: 1. No acute findings. . Abdomen/Pelvis CT 06/15/18 13:56 There are degenerative changes of the spine noted. Severe osteoarthritis of the right hip is present with a remote fracture deformity of the right femoral neck. No pleural or pericardial effusions are seen. Cholelithiasis is identified. Spleen, liver, pancreas, bilateral adrenal glands unremarkable. Small hiatal hernia. Right kidney demonstrates a nonobstructing stone at the upper pole measuring 3.8 mm. There are nonobstructing stones at the lower pole measuring up to 1.3 cm in transverse dimension. There is moderate right-sided hydronephrosis secondary to an obstructing calculus within the proximal ureter measuring 9.2 mm on axial image 43. There are 2 tiny calculi measuring 4.1 mm across at the lower pole of the left kidney and a 9 mm left proximal ureteral stone on image 45. There is moderate left-sided hydronephrosis. 3.69 m simple cyst left lower pole kidney. Urinary bladder and uterus are unremarkable. There is diverticulosis of the sigmoid colon with abnormal circumferential bowel wall thickening involving the sigmoid colon through the ascending colon with mild induration of the pericolonic fat concerning for colitis. The appendix is normal. There is a fat-containing umbilical hernia measuring 2.2 cm at the abdominal wall in transverse dimension, hernia sac measuring 6.6 cm in transverse dimension. Uterus and adnexa are unremarkable. CONCLUSION: 1. Bilateral renal calculi and obstructing proximal ureteral stones are noted. 2. Small hiatal hernia. 3. Abnormal colonic wall thickening is seen concerning for colitis. 4. Fat-containing umbilical hernia. 5. Cholelithiasis. Assessment and Plan - Assessment (1) Renal calculi Code(s): N20.0 - Calculus of kidney Status: Acute (2) Hydronephrosis Code(s): N13.30 - Unspecified hydronephrosis Status: Acute (3) Acute kidney injury Code(s): N17.9 - Acute kidney failure, unspecified Status: Acute - Plan -Patient would benefit from bilateral ureteral stent placement vs nephrostomy tubes. We will attempt ureteral stent placement first, however based on imaging studies this may prove to be difficult. -We discussed procedure with patient. At this time, she is without pain and appears to be resting comfortably. Therefore emergent procedure not indicated ( as well as recent news of her father's passing may affect her decision making) and will plan for intervention tomorrow -She may have diet today, NPO midnight -Plan for cystoscopy with bilateral ureteral stent placement tomorrow. OR contacted and working on time -Will follow
--- NOTE | 2018-06-15 21:31 | ECG ---
Date Performed: 06/15/2018 Time Performed: 16:35:13 PTAGE: 72 years EKG: ATRIAL FIBRILLATION WITH RAPID VENTRICULAR RESPONSE LOW QRS VOLTAGE IN PRECORDIAL LEADS NON SPECIFIC T-WAVE ABNORMALITY ABNORMAL RHYTHM ECG PREVIOUS TRACING : 06/15/2018 11.21 Compared to previous tracing, atrial fibrillation has repla micaela Sinus rhythm . DOCTOR: Collin Kuhn Interpretating Date/Time 06/15/2018 21:30:14
[2018-06-15] MEDS: Metoprolol Tartrate 25 MG Tablet PO SCH (21:35)
--- NOTE | 2018-06-15 21:37 | ECG ---
Date Performed: 06/15/2018 Time Performed: 11:21:21 PTAGE: 72 years EKG: SINUS TACHYCARDIA POSSIBLE LEFT ATRIAL ENLARGEMENT NONSPECIFIC ST & T-WAVE ABNORMALITY ABNO RMAL ECG NO PREVIOUS TRACING DOCTOR: Collin Kuhn Interpretating Date/Time 06/15/2018 21:35:53
[2018-06-16] MEDS: Sod Chloride 0.9% Inj 1,000 ML IV.CONT SCH ×2 (03:41→11:35)
[2018-06-16 08:31] LABS: Baso % (Auto) 0.1 % (0.0-2.0); Eos % (Auto) 0.4 % (0.0-4.0); Hematocrit 37.5 % (35.0-46.0); Hemoglobin 12.5 gm/dL (11.6-15.3); Lymph # (Auto) 0.8 th/mm3 (1.0-4.8); Lymph % (Auto) 5.8 % (9.0-44.0); Mean Corpuscular HGB Conc 33.4 % (32.0-36.0); Mean Corpuscular Hemoglobin 29.1 pg (27.0-34.0); Mean Corpuscular Volume 87.3 fL (80.0-100.0); Mean Platelet Volume 8.1 fL (7.0-11.0); Mono # (Auto) 0.8 th/mm3 (0.0-0.9); Mono % (Auto) 6.2 % (0.0-8.0); Neut # (Auto) 11.9 th/mm3 (1.8-7.7); Neut % (Auto) 87.5 % (16.0-70.0); Platelet Count 307 th/mm3 (150-450); Red Blood Count 4.29 mil/mm3 (4.00-5.30); Red Cell Distribution Width 14.5 % (11.6-17.2); White Blood Count 13.6 th/mm3 (4.0-11.0)
[2018-06-16 09:00] LABS: Calcium 7.9 mg/dL (8.5-10.1); Carbon Dioxide 13.7 meq/L (21.0-32.0)
[2018-06-16] MEDS: Metoprolol Tartrate 25 MG Tablet PO SCH ×2 (09:07→21:37)
[2018-06-16 09:10] LABS: Potassium 2.9 meq/L (3.5-5.1)
[2018-06-16 09:19] LABS: Lymphocytes 4 % (9-44); Metamyelocytes 2 % (0-1); Monocytes 5 % (0-8); Myelocytes 2 % (0-0); Platelet Estimate Normal (Normal); Promyelocyte 1 % (0-0); Tallied Nucleated RBC 1 (0-0)
[2018-06-16 09:20] LABS: Burr Cells 1+; Platelet Morphology Normal (Normal)
[2018-06-16 09:21] LABS: Toxic Vacuolation Present
[2018-06-16] MEDS ORDERED: Potassium Chlor 20 mEq Premix 20 MEQ/100 ML PIGGYBACK IV.SIG ONE (11:42)
--- NOTE | 2018-06-16 11:50 | P.PNIM ---
Subjective Interval history: Denies any chest pain shortness of breath. denies any back pain. Physical Exam Vital signs: Vital Signs 06/15/18 14:06 06/15/18 15:27 06/15/18 16:05 Temperature Pulse Rate 105 H 118 H 131 H Respiratory Rate 20 20 18 Blood Pressure 150/84 H 150/84 H 155/84 H Pulse Oximetry 97 96 96 06/15/18 16:28 06/15/18 17:07 06/15/18 19:00 Temperature 99.1 F Pulse Rate 108 H 104 H 109 H Respiratory Rate 18 20 20 Blood Pressure 113/84 153/86 H 151/101 H Pulse Oximetry 96 96 96 06/15/18 20:00 06/16/18 00:00 06/16/18 04:00 Temperature 97.7 F 98.1 F 97.5 F L Pulse Rate 72 96 H 84 Respiratory Rate 21 21 19 Blood Pressure 163/77 H 134/69 119/80 Pulse Oximetry 96 94 L 94 L 06/16/18 08:00 Temperature 97.8 F Pulse Rate 103 H Respiratory Rate 20 Blood Pressure 163/78 H Pulse Oximetry 96 Intake & Output 06/15/18 06/16/18 06/16/18 18:59 06:59 18:59 Intake Total 2300 / 2300 900 / 900 Output Total 200 / 200 Balance 2099 / 2099 900 / 900 Weight 113.398 kg 113 kg Intake: IV 2300 / 2300 900 / 900 NS Inj 1,000 ML @ 100 mls/hr IV 200 / 200 800 / 800 .CONT .Q10H [facility] Rx#:[id number] Maxipime Inj 1,000 MG In NS Inj 100 / 100 100 ML @ 200 mls/hr IV.SIG DAILY@2100 [place] Rx#:[id number] NS Inj 1,000 ML @ Wide Open IV. 1999 SIG BOLUS [place] Rx#:[id number] Rocephin Inj 1,000 MG In NS Inj 100 / 100 100 ML @ 200 mls/hr IV.SIG ONCE ONE Rx#:[id number] Oral 0 / 0 Output: Urine 200 / 200 Other: # Voids 1 2 # Incontinent Voids 1 Narrative: GENERAL: Patient sitting up in bed. Appears comfortable. SKIN: Warm and dry. HEAD: Normocephalic. EYES: No scleral icterus. No injection or drainage. NECK: Supple, trachea midline. No JVD . CARDIOVASCULAR: Regular rate and rhythm without murmurs, gallops, or rubs. RESPIRATORY: Breath sounds equal bilaterally. No accessory muscle use. GASTROINTESTINAL: Abdomen soft, non-tender, nondistended. MUSCULOSKELETAL: No cyanosis, or edema. BACK: Nontender without obvious deformity. No CVA tenderness. Results - Labs CBC & Chem 7: 06/16/18 07:41 06/16/18 07:41 Laboratory Results - last 24 hr 06/15/18 06/15/18 06/15/18 12:15 13:15 13:15 CBC w Diff Slide review pending WBC 15.9 H RBC 4.48 Hgb 13.2 Hct 39.5 MCV 88.2 MCH 29.4 MCHC 33.4 RDW 13.3 Plt Count 342 MPV 7.9 Prelim Diff (Auto) Neut % (Auto) 90.2 H Lymph % (Auto) 5.1 L [place] % (Auto) 3.8 Eos % (Auto) 0.1 Baso % (Auto) 0.8 Neut # (Auto) 14.4 H Lymph # (Auto) 0.8 L [place] # (Auto) 0.6 Eos # (Auto) 0.0 Baso # (Auto) 0.1 WBC Differential Manual diff final Seg Neuts % (Manual) 59 Band Neuts % (Manual) 30 H Lymphocytes % (Manual) 5 L Monocytes % (Manual) 5 Metamyelocytes % (Man) 1 Myelocytes % (Man) Promyelocytes % (Man) Abs Neuts (Manual) 14.3 H Nucleated RBCs/100 WBC Differential Comment . Toxic Vacuolation Platelet Estimate Normal Platelet Morphology Normal RBC Morphology Normal [place] Cells PT 13.7 H INR 1.4 APTT 32.1 H Sodium Potassium Chloride Carbon Dioxide Anion Gap BUN Creatinine Estimated GFR Random Glucose Lactic Acid 1.0 Calcium Magnesium Total Bilirubin AST ALT Alkaline Phosphatase Total Creatine Kinase CK-MB (CK-2) CK-MB (CK-2) % Troponin I Total Protein Albumin Ur Collection Type Urine Color Urine Clarity Urine pH Ur Specific [place] Urine Protein Urine Glucose (UA) Urine Ketones Urine Occult Blood Urine Nitrate Urine Bilirubin Urine Urobilinogen Ur Leukocyte Esterase Urine RBC Urine WBC Urine WBC Clumps Ur Squamous Epith Cells Ur Transition Epith Cell Amorphous Sediment Urine Bacteria Micro UA Comment Ur Microscopic Review Urine Culture Comments Urine Collection Time 06/15/18 06/15/1806/15/18 13:15 13:15 14:00 CBC w Diff WBC RBC Hgb Hct MCV MCH MCHC RDW Plt Count MPV Prelim Diff (Auto) Neut % (Auto) Lymph % (Auto) [place] % (Auto) Eos % (Auto) Baso % (Auto) Neut # (Auto) Lymph # (Auto) [place] # (Auto) Eos # (Auto) Baso # (Auto) WBC Differential Seg Neuts % (Manual) Band Neuts % (Manual) Lymphocytes % (Manual) Monocytes % (Manual) Metamyelocytes % (Man) Myelocytes % (Man) Promyelocytes % (Man) Abs Neuts (Manual) Nucleated RBCs/100 WBC Differential Comment Toxic Vacuolation Platelet Estimate Platelet Morphology RBC Morphology [place] Cells PT INR APTT Sodium 135 L Potassium 3.6 Chloride 107 Carbon Dioxide 11.2 L Anion Gap 17 H BUN 83 H Creatinine 3.80 H Estimated GFR 12 L Random Glucose 106 Lactic Acid Calcium 8.5 Magnesium 2.5 Total Bilirubin 0.3 AST 19 ALT 15 Alkaline Phosphatase 155 H Total Creatine Kinase 251 H CK-MB (CK-2) 8.3 H CK-MB (CK-2) % 3.3 Troponin I Less than 0.02 L Total Protein 6.5 Albumin 2.2 L Ur Collection Type Clean catch Urine Color Yellow Urine Clarity Cloudy H Urine pH 6.0 Ur Specific [place] 1.020 Urine Protein 30 H Urine Glucose (UA) Negative Urine Ketones Negative Urine Occult Blood Moderate H Urine Nitrate Negative Urine Bilirubin Negative Urine Urobilinogen 0.2 Ur Leukocyte Esterase Moderate H Urine RBC 15-50 H Urine WBC 51-189 H Urine WBC Clumps Moderate H Ur Squamous Epith Cells 6-10 H Ur Transition Epith Cell 1-5 H Amorphous Sediment Moderate H Urine Bacteria Moderate H Micro UA Comment Culture indicated Ur Microscopic Review Microscopic reviewed Urine Culture Comments Culture indicated Urine Collection Time 1400 06/16/18 06/16/18 07:41 07:41 CBC w Diff WBC 13.6 H RBC 4.29 Hgb 12.5 Hct 37.5 MCV 87.3 MCH 29.1 MCHC 33.4 RDW 14.5 Plt Count 307 MPV 8.1 Prelim Diff (Auto) Slide review pending Neut % (Auto) 87.5 H Lymph % (Auto) 5.8 L [place] % (Auto) 6.2 Eos % (Auto) 0.4 Baso % (Auto) 0.1 Neut # (Auto) 11.9 H Lymph # (Auto) 0.8 L [place] # (Auto) 0.8 Eos # (Auto) 0.0 Baso # (Auto) 0.0 WBC Differential Manual diff final Seg Neuts % (Manual) 75 H Band Neuts % (Manual) 11 H Lymphocytes % (Manual) 4 L Monocytes % (Manual) 5 Metamyelocytes % (Man) 2 H Myelocytes % (Man) 2 H Promyelocytes % (Man) 1 H Abs Neuts (Manual) 12.4 H Nucleated RBCs/100 WBC 1 H Differential Comment . Toxic Vacuolation Present H Platelet Estimate Normal Platelet Morphology Normal RBC Morphology [place] Cells 1+ H PT INR APTT Sodium 146 H D Potassium 2.9 L* Chloride 119 H D Carbon Dioxide 13.7 L Anion Gap 13 BUN 54 H Creatinine 2.11 H Estimated GFR 23 L Random Glucose 72 L Lactic Acid Calcium 7.9 L Magnesium Total Bilirubin AST ALT Alkaline Phosphatase Total Creatine Kinase CK-MB (CK-2) CK-MB (CK-2) % Troponin I Total Protein Albumin Ur Collection Type Urine Color Urine Clarity Urine pH Ur Specific [place] Urine Protein Urine Glucose (UA) Urine Ketones Urine Occult Blood Urine Nitrate Urine Bilirubin Urine Urobilinogen Ur Leukocyte Esterase Urine RBC Urine WBC Urine WBC Clumps Ur Squamous Epith Cells Ur Transition Epith Cell Amorphous Sediment Urine Bacteria Micro UA Comment Ur Microscopic Review Urine Culture Comments Urine Collection Time - Imaging Impressions Chest X-Ray 06/15/18 11:11 CONCLUSION: Basilar atelectasis and possible tiny right effusion versus scarring. Head CT 06/15/18 11:11 CONCLUSION: 1. No acute findings. . Abdomen/Pelvis CT 06/15/18 13:56 There are degenerative changes of the spine noted. Severe osteoarthritis of the right hip is present with a remote fracture deformity of the right femoral neck. No pleural or pericardial effusions are seen. Cholelithiasis is identified. Spleen, liver, pancreas, bilateral adrenal glands unremarkable. Small hiatal hernia. Right kidney demonstrates a nonobstructing stone at the upper pole measuring 3.8 mm. There are nonobstructing stones at the lower pole measuring up to 1.3 cm in transverse dimension. There is moderate right-sided hydronephrosis secondary to an obstructing calculus within the proximal ureter measuring 9.2 mm on axial image 43. There are 2 tiny calculi measuring 4.1 mm across at the lower pole of the left kidney and a 9 mm left proximal ureteral stone on image 45. There is moderate left-sided hydronephrosis. 3.69 m simple cyst left lower pole kidney. Urinary bladder and uterus are unremarkable. There is diverticulosis of the sigmoid colon with abnormal circumferential bowel wall thickening involving the sigmoid colon through the ascending colon with mild induration of the pericolonic fat concerning for colitis. The appendix is normal. There is a fat-containing umbilical hernia measuring 2.2 cm at the abdominal wall in transverse dimension, hernia sac measuring 6.6 cm in transverse dimension. Uterus and adnexa are unremarkable. CONCLUSION: 1. Bilateral renal calculi and obstructing proximal ureteral stones are noted. 2. Small hiatal hernia. 3. Abnormal colonic wall thickening is seen concerning for colitis. 4. Fat-containing umbilical hernia. 5. Cholelithiasis. Assessment and Plan - Assessment (1) Hydronephrosis Code(s): N13.30 - Unspecified hydronephrosis Status: Acute (2) Acute kidney injury Code(s): N17.9 - Acute kidney failure, unspecified Status: Acute (3) Renal calculi Code(s): N20.0 - Calculus of kidney Status: Acute - Plan Ms. Mac is a 72-year-old female with a history of GERD, hyperlipidemia who presented to the emergency department due to nausea vomiting and diarrhea that started on 06/12/2018. ED evaluation indicated hydronephrosis on the left side as well as renal stone. Her creatinine is also elevated to 3.8. Baseline unknown. Patient also developed atrial fibrillation. //Sepsis (WBC 15.9K, Heart rate over 100, suspected infection - UTI). //Possible urinary tract infection //Nephrolithiasis //Left sided hydronephrosis - ED provider discussed with Urology (Dr. Lemon) who recommended patient to be transferred to the main hospital. - Continue Ceftriaxone 1g Qday. - IV fluid NS 100cc/hour. - Morphine 4mg IV Q4hrs PRN for pain. = 06/16 follow-up urine culture. Continue IV antibiotics. Urology following. Appreciate assistance. //Acute kidney injury - Baseline unknown. Cr 3.8 today. - Avoid Nephrotoxins. Will check BMP in the AM. = 06/16. Repeat BMP with improved, however suspect lab error. Repeat pending. //Hypokalemia. = 06/16 potassium 2.9. Suspect lab error due to high sodium and chloride. Repeat check. Will replace minimally pending recheck. //New onset Atrial fibrillation //Hypertension - Pt received Metoprolol IV. - Will start patient on Metoprolol 25mg Q8hrs - If BP remains high, consider Amlodipine or Nifedipine. = BP acceptable. Continue to monitor. //Gastroenteritis - No further N/V/D in the ED. If sample is collected, will check C. Diff PCR. = No diarrhea bowel movements. //Full code. SCDs for now. Consider Heparin after Urological procedure. Discharge Planning: PT consult pending.
[2018-06-16 12:25] LABS: Calcium 7.8 mg/dL (8.5-10.1); Carbon Dioxide 14.5 meq/L (21.0-32.0); Potassium 3.3 meq/L (3.5-5.1)
[2018-06-16] MEDS: Potassium Chlor 10 mEq Premix 10 MEQ/100 ML PIGGYBACK IV.SIG SCH ×2 (13:32→14:39)
[2018-06-16] MEDS: Sodium Chloride 0.45 % Inj 1,000 ML IV.CONT SCH (15:44)
--- NOTE | 2018-06-16 17:21 | P.PNURO ---
Subjective Patient symptoms today: Patient WBC and Cr improving. No pain, no fevers Patient has been NPO all day in anticipation for cysto stent placement. However the [facility] has been unable to accommodate the patient and is unable to give us an OR time. Objective Vital Signs: Vital Signs 06/15/18 19:00 06/15/18 20:00 06/16/18 00:00 Temperature 99.1 F 97.7 F 98.1 F Pulse Rate 109 H 72 96 H Respiratory Rate 20 21 21 Blood Pressure 151/101 H 163/77 H 134/69 Pulse Oximetry 96 96 94 L 06/16/18 04:00 06/16/18 08:00 06/16/18 12:00 Temperature 97.5 F L 97.8 F 97.8 F Pulse Rate 84 103 H 108 H Respiratory Rate 19 20 20 Blood Pressure 119/80 163/78 H 161/84 H Pulse Oximetry 94 L 96 95 06/16/18 16:00 Temperature Pulse Rate 81 Respiratory Rate Blood Pressure Pulse Oximetry Intake & Output 06/15/18 06/16/18 06/16/18 18:59 06:59 18:59 Intake Total 2300 / 2300 900 / 900 650 / 650 Output Total 200 / 200 4 / 4 Balance 2099 / 2099 900 / 900 646 / 646 Weight 113.398 kg 113 kg Intake: IV 2300 / 2300 900 / 900 650 / 650 NS Inj 1,000 ML @ 100 mls/hr IV 200 / 200 800 / 800 450 / 450 .CONT .Q10H [facility] Rx#:[id number] Maxipime Inj 1,000 MG In NS Inj 100 / 100 100 ML @ 200 mls/hr IV.SIG DAILY@2100 [facility] Rx#:[id number] KCl 10 mEq Premix Inj 10 meq In 200 / 200 100 ml @ 100 mls/hr IV.SIG Q1H [facility] Rx#:[id number] NS Inj 1,000 ML @ Wide Open IV. 1999 / 1999 SIG BOLUS [facility] Rx#:[id number] Rocephin Inj 1,000 MG In NS Inj 100 / 100 100 ML @ 200 mls/hr IV.SIG ONCE ONE Rx#:[id number] Oral 0 / 0 Output: Urine 200 / 200 4 / 4 Other: # Voids 1 2 # Incontinent Voids 1 Result Diagrams: 06/16/18 07:41 06/16/18 11:26 Other Results: NAD, AAOx3 Resp NL Ab S/NT/ND Medications and IVs: Active Medications Generic Name Dose Route Start Last Admin Trade Name Freq PRN Reason Stop Dose Admin Acetaminophen 650 mg 06/15/18 15:34 Tylenol PO Q4H PRN Headache, fever, pain 1-5 Al Hydroxide/Mg Hydroxide 30 ml 06/15/18 15:34 Milk Of Magnesia Liq PO Q12H PRN Mild Constipation Bisacodyl 10 mg 06/15/18 15:34 Dulcolax Supp RECTAL DAILY PRN SEVERE CONSITIPATION Sodium Chloride 1,000 mls @ 0 mls/hr 06/15/18 14:00 06/15/18 15:26 Ns Inj IV.SIG Infused BOLUS [place] Infusion Wide Open Cefepime HCl 1,000 mg/ Sodium 100 mls @ 200 mls/hr 06/15/18 21:00 06/16/18 00 :13 Chloride IV.SIG Infused DAILY@2100 [facility] Infusion Sodium Chloride 1,000 mls @ 100 mls/hr 06/16/18 14:29 06/16/18 15:44 1/2 Normal Saline Inj IV.CONT 100 mls/hr .Q10H [facility] Administration Lactulose 30 ml 06/15/18 15:34 Lactulose Liq PO DAILY PRN SEVERE CONSITIPATION Metoprolol Tartrate 25 mg 06/15/18 21:00 06/16/18 09:07 Lopressor PO 25 mg BID [facility] Administration Morphine Sulfate 4 mg 06/15/18 17:43 Morphine Inj IV.PUSH Q4H PRN Pain 5-10 Ondansetron HCl 4 mg 06/15/18 15:34 Zofran Inj IV.PUSH Q6H PRN NAUSEA OR VOMITING Sennosides 17.2 mg 06/15/18 15:34 Senokot PO Q12H PRN Moderate Constipation Sodium Chloride 2 ml 06/15/18 11:11 Ns Flush IV.FLUSH PRN PRN FLUSH AFTER USING IV ACCESS Assessment and Plan - Assessment (1) Renal calculi Code(s): N20.0 - Calculus of kidney Status: Acute (2) Hydronephrosis Code(s): N13.30 - Unspecified hydronephrosis Status: Acute (3) Acute kidney injury Code(s): N17.9 - Acute kidney failure, unspecified Status: Acute - Plan -Patient has been NPO all day in anticipation for surgery of cystoscopy and stent placement, however the [facility] is unable to accommodate this patient with bilateral ureteral stones -Fortunately, the patient is without pain and her WBC as well as Cr has improved and she is without fevers -Therefore we will hold off on surgical intervention at this time -However, if patient's clinic picture worsens, we will plan for Bilateral nephrostomy tube placement with Interventional Radiology as the [facility] is unreliable -If patient continues to improve, she may be discharged with Urology followup in clinic at which point we can plan for treatment of her bilateral nephrolithiasis as an outpatient -Will follow
[2018-06-17] MEDS: Sodium Chloride 0.45 % Inj 1,000 ML IV.CONT SCH ×3 (01:27→22:05)
[2018-06-17] MEDS: Metoprolol Tartrate 25 MG Tablet PO SCH ×2 (09:00→20:23)
--- NOTE | 2018-06-17 12:45 | P.PNIM ---
Subjective Interval history: Patient says she is feeling right. Denies any chest pain or shortness of breath. Reports pain is under control. Physical Exam Vital signs: Vital Signs 06/16/18 16:00 06/16/18 20:00 06/17/18 00:00 Temperature 97.7 F 99.0 F 98.4 F Pulse Rate 98 H 101 H 96 H Respiratory Rate 20 17 19 Blood Pressure 158/75 H 159/81 H 133/76 Pulse Oximetry 100 95 96 06/17/18 03:58 06/17/18 04:00 06/17/18 05:26 Temperature 98.5 F Pulse Rate 97 H 102 H Respiratory Rate 19 Blood Pressure 170/79 H 162/65 H Pulse Oximetry 95 06/17/18 08:00 Temperature Pulse Rate 101 H Respiratory Rate Blood Pressure Pulse Oximetry Intake & Output 06/16/18 06/17/18 06/17/18 18:59 06:59 18:59 Intake Total 650 / 650 1340 / 1340 Output Total 4 / 4 Balance 646 / 646 1340 / 1340 Weight 107.8 kg Intake: IV 650 / 650 1100 / 1100 NS Inj 1,000 ML @ 100 mls/hr IV 450 / 450 .CONT .Q10H [facility] Rx#:[id number] 1/2 Normal Saline Inj 1,000 ML 1000 / 1000 @ 100 mls/hr IV.CONT .Q10H [facility] Rx#:[id number] Maxipime Inj 1,000 MG In NS Inj 100 / 100 100 ML @ 200 mls/hr IV.SIG DAILY@2100 [facility] Rx#:[id number] KCl 10 mEq Premix Inj 10 meq In 200 / 200 100 ml @ 100 mls/hr IV.SIG Q1H [facility] Rx#:[id number] Oral 240 / 240 Output: Urine 4 / 4 Other: # Incontinent Voids 3 Narrative: GENERAL: Patient sitting up in bed. Appears comfortable. SKIN: Warm and dry. HEAD: Normocephalic. EYES: No scleral icterus. No injection or drainage. NECK: Supple, trachea midline. No JVD . CARDIOVASCULAR: Regular rate and rhythm without murmurs, gallops, or rubs. RESPIRATORY: Breath sounds equal bilaterally. No accessory muscle use. GASTROINTESTINAL: Abdomen soft, non-tender, nondistended. MUSCULOSKELETAL: No cyanosis, or edema. BACK: Nontender without obvious deformity. No CVA tenderness. Results - Labs CBC & Chem 7: 06/16/18 07:41 06/16/18 11:26 Laboratory Results - last 24 hr 06/15/18 14:00 Ur Collection Type Clean catch Urine Color Yellow Urine Clarity Cloudy H Urine pH 6.0 Ur Specific [place] 1.020 Urine Protein 30 H Urine Glucose (UA) Negative Urine Ketones Negative Urine Occult Blood Moderate H Urine Nitrate Negative Urine Bilirubin Negative Urine Urobilinogen 0.2 Ur Leukocyte Esterase Moderate H Urine RBC 15-50 H Urine WBC 51-189 H Urine WBC Clumps Moderate H Ur Squamous Epith Cells 6-10 H Ur Transition Epith Cell 1-5 H Amorphous Sediment Moderate H Urine Bacteria Moderate H Micro UA Comment Culture indicated Ur Microscopic Review Microscopic reviewed Urine Culture Comments Culture indicated Urine Collection Time 1400 Microbiology 06/15/18 14:00 Clean Catch Urine Urine Culture - Final Escherichia coli Assessment and Plan - Assessment (1) Hydronephrosis Code(s): N13.30 - Unspecified hydronephrosis Status: Acute (2) Acute kidney injury Code(s): N17.9 - Acute kidney failure, unspecified Status: Acute (3) Renal calculi Code(s): N20.0 - Calculus of kidney Status: Acute - Plan Ms. Mac is a 72-year-old female with a history of GERD, hyperlipidemia who presented to the emergency department due to nausea vomiting and diarrhea that started on 06/12/2018. ED evaluation indicated hydronephrosis on the left side as well as renal stone. Her creatinine is also elevated to 3.8. Baseline unknown. Patient also developed atrial fibrillation. //Sepsis (WBC 15.9K, Heart rate over 100, suspected infection - UTI). //Possible urinary tract infection //Nephrolithiasis //Left sided hydronephrosis - ED provider discussed with Urology (Dr. Lemon) who recommended patient to be transferred to the main hospital. - Continue Ceftriaxone 1g Qday. - IV fluid NS 100cc/hour. - Morphine 4mg IV Q4hrs PRN for pain. = 06/16 follow-up urine culture. Continue IV antibiotics. Urology following. Appreciate assistance. = 06/17. E. coli on urine culture. Resistant to ampicillin/sulbactam. Follow- up renal function. If she does not improve, will need intervention by urology. Appreciate urology assistance. //Acute kidney injury - Baseline unknown. Cr 3.8 today. - Avoid Nephrotoxins. Will check BMP in the AM. = 06/16. Repeat BMP with improved, however suspect lab error. Repeat pending. //Hypokalemia. = 06/16 potassium 2.9. Suspect lab error due to high sodium and chloride. Repeat check. Will replace minimally pending recheck. //New onset Atrial fibrillation //Hypertension - Pt received Metoprolol IV. - Will start patient on Metoprolol 25mg Q8hrs - If BP remains high, consider Amlodipine or Nifedipine. = BP acceptable. Continue to monitor. //Gastroenteritis - No further N/V/D in the ED. If sample is collected, will check C. Diff PCR. = No diarrhea bowel movements. //Full code. SCDs for now. Consider Heparin after Urological procedure. Discharge Planning: PT consult pending.
--- NOTE | 2018-06-17 14:11 | P.PNURO ---
Subjective Patient symptoms today: Pt was seen at her room this afternoon. She has c/o right sided buttock pain today which is not related. Possibly positional and due to sciatica. Her labs are improving and stable. She denies flank pain, no f/c/n/v. Cr is improving Objective Vital Signs: Vital Signs 06/16/18 16:00 06/16/18 20:00 06/17/18 00:00 Temperature 97.7 F 99.0 F 98.4 F Pulse Rate 98 H 101 H 96 H Respiratory Rate 20 17 19 Blood Pressure 158/75 H 159/81 H 133/76 Pulse Oximetry 100 95 96 06/17/18 03:58 06/17/18 04:00 06/17/18 05:26 Temperature 98.5 F Pulse Rate 97 H 102 H Respiratory Rate 19 Blood Pressure 170/79 H 162/65 H Pulse Oximetry 95 06/17/18 08:00 Temperature Pulse Rate 101 H Respiratory Rate Blood Pressure Pulse Oximetry Intake & Output 06/16/18 06/17/18 06/17/18 18:59 06:59 18:59 Intake Total 650 / 650 1340 / 1340 1000 / 1000 Output Total 4 / 4 Balance 646 / 646 1340 / 1340 1000 / 1000 Weight 107.8 kg Intake: IV 650 / 650 1100 / 1100 1000 / 1000 NS Inj 1,000 ML @ 100 mls/hr IV 450 / 450 .CONT .Q10H [facility] Rx#:[id number] 1/2 Normal Saline Inj 1,000 ML 1000 / 1000 1000 / 1000 @ 100 mls/hr IV.CONT .Q10H [facility] Rx#:[id number] Maxipime Inj 1,000 MG In NS Inj 100 / 100 100 ML @ 200 mls/hr IV.SIG DAILY@2100 [facility] Rx#:[id number] KCl 10 mEq Premix Inj 10 meq In 200 / 200 100 ml @ 100 mls/hr IV.SIG Q1H [facility] Rx#:[id number] Oral 240 / 240 Output: Urine 4 / 4 Other: # Incontinent Voids 3 Result Diagrams: 06/16/18 07:41 06/16/18 11:26 Medications and IVs: Active Medications Generic Name Dose Route Start Last Admin Trade Name Freq PRN Reason Stop Dose Admin Acetaminophen 650 mg 06/15/18 15:34 Tylenol PO Q4H PRN Headache, fever, pain 1-5 Al Hydroxide/Mg Hydroxide 30 ml 06/15/18 15:34 Milk Of Magnesia Liq PO Q12H PRN Mild Constipation Bisacodyl 10 mg 06/15/18 15:34 Dulcolax Supp RECTAL DAILY PRN SEVERE CONSITIPATION Sodium Chloride 1,000 mls @ 0 mls/hr 06/15/18 14:00 06/15/18 15:26 Ns Inj IV.SIG Infused BOLUS [place] Infusion Wide Open Cefepime HCl 1,000 mg/ Sodium 100 mls @ 200 mls/hr 06/15/18 21:00 06/16/18 22 :01 Chloride IV.SIG Infused DAILY@2100 [facility] Infusion Sodium Chloride 1,000 mls @ 100 mls/hr 06/16/18 14:29 06/17/18 12:50 1/2 Normal Saline Inj IV.CONT 100 mls/hr .Q10H [facility] Administration Lactulose 30 ml 06/15/18 15:34 Lactulose Liq PO DAILY PRN SEVERE CONSITIPATION Metoprolol Tartrate 25 mg 06/15/18 21:00 06/17/18 09:00 Lopressor PO 25 mg BID [facility] Administration Morphine Sulfate 4 mg 06/15/18 17:43 Morphine Inj IV.PUSH Q4H PRN Pain 5-10 Ondansetron HCl 4 mg 06/15/18 15:34 Zofran Inj IV.PUSH Q6H PRN NAUSEA OR VOMITING Pantoprazole Sodium 20 mg 06/18/18 09:00 Protonix PO DAILY [facility] Sennosides 17.2 mg 06/15/18 15:34 Senokot PO Q12H PRN Moderate Constipation Sodium Chloride 2 ml 06/15/18 11:11 Ns Flush IV.FLUSH PRN PRN FLUSH AFTER USING IV ACCESS Objective Remarks: In mild distress due to her pain RRR Clear lings No CVAT Assessment and Plan - Plan Pt is stable Urologywise and improving No related pain Continue care as per primary team Manage Right buttock /sciatica pain Pt to f/u with after d/c If her Renal function will get worse or her flank pain get worse follow Dr Jnug recommendations for possible b/l nephrostomies placement Urology remains available as needed. Discussed Condition With: Pt's RN and Dr Jung
[2018-06-17 14:35] LABS: Albumin 1.8 g/dL (3.4-5.0); Calcium 7.8 mg/dL (8.5-10.1); Phosphorus 1.8 mg/dL (2.5-4.9)
[2018-06-17 14:39] LABS: Potassium 2.6 meq/L (3.5-5.1)
[2018-06-17] MEDS: Potassium Chlor 20 mEq Premix 20 MEQ/100 ML PIGGYBACK IV.SIG SCH ×2 (15:36→18:50)
[2018-06-17] MEDS ORDERED: Potassium Chlor 20 mEq Premix 20 MEQ/100 ML PIGGYBACK IV.SIG ONE (20:00)
[2018-06-17] MEDS ORDERED: Potassium Phosphate Inj 15 MMOL in Sodium Chlor 0.9% Inj 150 ML IV.SIG ONE (23:33)
[2018-06-18] MEDS: Sod Chloride 0.9% Inj 1,000 ML IV.SIG SCH (04:29)
[2018-06-18] MEDS: Sodium Chloride 0.45 % Inj 1,000 ML IV.CONT SCH ×2 (04:44→07:44)
[2018-06-18 07:33] LABS: Baso % (Auto) 0.1 % (0.0-2.0); Eos # (Auto) 0.1 th/mm3 (0.0-0.4); Eos % (Auto) 0.4 % (0.0-4.0); Hematocrit 36.4 % (35.0-46.0); Hemoglobin 12.2 gm/dL (11.6-15.3); Lymph # (Auto) 1.3 th/mm3 (1.0-4.8); Lymph % (Auto) 9.3 % (9.0-44.0); Mean Corpuscular HGB Conc 33.6 % (32.0-36.0); Mean Corpuscular Hemoglobin 28.7 pg (27.0-34.0); Mean Corpuscular Volume 85.6 fL (80.0-100.0); Mean Platelet Volume 7.6 fL (7.0-11.0); Mono # (Auto) 1.2 th/mm3 (0.0-0.9); Mono % (Auto) 8.1 % (0.0-8.0); Neut # (Auto) 11.9 th/mm3 (1.8-7.7); Neut % (Auto) 82.1 % (16.0-70.0); Platelet Count 326 th/mm3 (150-450); Red Blood Count 4.26 mil/mm3 (4.00-5.30); Red Cell Distribution Width 14.4 % (11.6-17.2); White Blood Count 14.5 th/mm3 (4.0-11.0)
[2018-06-18 08:05] LABS: Albumin 1.7 g/dL (3.4-5.0); Calcium 7.6 mg/dL (8.5-10.1); Carbon Dioxide 14.7 meq/L (21.0-32.0); Magnesium 1.5 mg/dL (1.5-2.5); Phosphorus 1.8 mg/dL (2.5-4.9); Potassium 3.1 meq/L (3.5-5.1)
[2018-06-18 08:52] LABS: Lymphocytes 6 % (9-44); Monocytes 9 % (0-8); Myelocytes 2 % (0-0); Platelet Estimate Normal (Normal); Platelet Morphology Normal (Normal)
[2018-06-18 08:54] LABS: RBC Morphology Normal (Normal)
[2018-06-18] MEDS: Metoprolol Tartrate 25 MG Tablet PO SCH ×3 (09:05→21:32)
[2018-06-18] MEDS: Pantoprazole Sodium 20 MG DR Tablet PO SCH (09:05)
--- NOTE | 2018-06-18 09:58 | P.PNIM ---
Subjective Interval history: Patient says she is feeling all right. Denies any chest pain shortness of breath. Denies any abdominal pain. Physical Exam Vital signs: Vital Signs 06/17/18 12:00 06/17/18 16:00 06/17/18 16:29 Temperature 97.3 F L 97.7 F Pulse Rate 107 H 101 H 110 H Respiratory Rate 20 18 Blood Pressure 149/67 H 145/62 H Pulse Oximetry 95 96 06/17/18 20:00 06/18/18 00:00 06/18/18 04:00 Temperature 97.4 F L 97.5 F L 97.5 F L Pulse Rate 86 87 88 Respiratory Rate 18 18 18 Blood Pressure 132/94 H 134/68 134/68 Pulse Oximetry 94 L 92 L 92 L Intake & Output 06/17/18 06/18/18 06/18/18 18:59 06:59 18:59 Intake Total 1100 / 1100 1595 / 1595 Balance 1100 / 1100 1595 / 1595 Weight 80.9 kg Intake: IV 1100 / 1100 1355 / 1355 1/2 Normal Saline Inj 1,000 ML 1000 / 1000 1000 / 1000 @ 100 mls/hr IV.CONT .Q10H [facility] Rx#:[id number] Maxipime Inj 1,000 MG In NS Inj 100 / 100 100 ML @ 200 mls/hr IV.SIG DAILY@2100 [facility] Rx#:[id number] KCl 20 mEq Premix Inj 20 meq In 100 / 100 100 / 100 100 ml @ 50 mls/hr IV.SIG ONCE ONE Rx#:[id number] Potassium Phosphate Inj 15 MMOL 155 / 155 In NS Inj 150 ML @ 38.75 mls/ hr IV.SIG ONCE ONE Rx#:[id number] Oral 240 / 240 Other: # Voids 2 Narrative: GENERAL: Patient sitting up in bed. Appears comfortable. Smiling today SKIN: Warm and dry. HEAD: Normocephalic. EYES: No scleral icterus. No injection or drainage. NECK: Supple, trachea midline. No JVD . CARDIOVASCULAR: Regular rate and rhythm without murmurs, gallops, or rubs. RESPIRATORY: Breath sounds equal bilaterally. No accessory muscle use. GASTROINTESTINAL: Abdomen soft, non-tender, nondistended. MUSCULOSKELETAL: No cyanosis, or edema. BACK: Nontender without obvious deformity. No CVA tenderness. Results - Labs CBC & Chem 7: 06/18/18 06:26 06/18/18 06:26 Laboratory Results - last 24 hr 06/17/18 06/18/18 06/18/18 13:36 06:26 06:26 WBC 14.5 H RBC 4.26 Hgb 12.2 Hct 36.4 MCV 85.6 MCH 28.7 MCHC 33.6 RDW 14.4 Plt Count 326 MPV 7.6 Prelim Diff (Auto) Slide review pending Neut % (Auto) 82.1 H Lymph % (Auto) 9.3 [place] % (Auto) 8.1 H Eos % (Auto) 0.4 Baso % (Auto) 0.1 Neut # (Auto) 11.9 H Lymph # (Auto) 1.3 [place] # (Auto) 1.2 H Eos # (Auto) 0.1 Baso # (Auto) 0.0 WBC Differential Manual diff final Seg Neuts % (Manual) 54 Band Neuts % (Manual) 29 H Lymphocytes % (Manual) 6 L Monocytes % (Manual) 9 H Myelocytes % (Man) 2 H Abs Neuts (Manual) 12.3 H Differential Comment . Platelet Estimate Normal Platelet Morphology Normal RBC Morphology Normal Sodium 142 142 Potassium 2.6 L* 3.1 L Chloride 114 H 115 H Carbon Dioxide 14.0 L 14.7 L Anion Gap 14 12 BUN 26 H 17 Creatinine 1.08 H 0.84 Estimated GFR 50 L 67 L Random Glucose 93 97 Calcium 7.8 L 7.6 L Phosphorus 1.8 L 1.8 L Magnesium 1.5 Albumin 1.8 L 1.7 L Microbiology 06/15/18 14:00 Clean Catch Urine Urine Culture - Final Escherichia coli Assessment and Plan - Assessment (1) Hydronephrosis Code(s): N13.30 - Unspecified hydronephrosis Status: Acute (2) Acute kidney injury Code(s): N17.9 - Acute kidney failure, unspecified Status: Acute (3) Renal calculi Code(s): N20.0 - Calculus of kidney Status: Acute - Plan Ms. Mac is a 72-year-old female with a history of GERD, hyperlipidemia who presented to the emergency department due to nausea vomiting and diarrhea that started on 06/12/2018. ED evaluation indicated hydronephrosis on the left side as well as renal stone. Her creatinine is also elevated to 3.8. Baseline unknown. Patient also developed atrial fibrillation. //Sepsis (WBC 15.9K, Heart rate over 100, suspected infection - UTI). //Possible urinary tract infection //Nephrolithiasis //Left sided hydronephrosis - ED provider discussed with Urology (Dr. Lemon) who recommended patient to be transferred to the main hospital. - Continue Ceftriaxone 1g Qday. - IV fluid NS 100cc/hour. - Morphine 4mg IV Q4hrs PRN for pain. = 06/16 follow-up urine culture. Continue IV antibiotics. Urology following. Appreciate assistance. = 06/17. E. coli on urine culture. Resistant to ampicillin/sulbactam. Follow- up renal function. If she does not improve, will need intervention by urology. Appreciate urology assistance. = 06/18. E. coli sensitive to ceftriaxone. Will switch to ceftriaxone. Will need follow-up with urology as outpatient. //Acute kidney injury - Baseline unknown. Cr 3.8 today. - Avoid Nephrotoxins. Will check BMP in the AM. = 06/16. Repeat BMP with improved, however suspect lab error. Repeat pending. = 06/18. Renal function back to baseline, however electrolyte abnormalities. //Non-anion gap metabolic acidosis Bicarb of 14. Will start bicarb and fluids. //Hypokalemia. = 06/16 potassium 2.9. Suspect lab error due to high sodium and chloride. Repeat check. Will replace minimally pending recheck. = 06/18. Hypokalemia has improved to 3.1. Will add to IV fluids. //Hypophosphatemia. =06/18 phosphorus 1.8. Replace yesterday, and will replaced today by mouth. Follow-up tomorrow. //New onset Atrial fibrillation //Hypertension - Pt received Metoprolol IV. - If BP remains high, consider Amlodipine or Nifedipine. = Pending echocardiogram. Heart rate intermittently up into the 120s A. fib RVR. Will increase metoprolol. //Gastroenteritis - No further N/V/D in the ED. If sample is collected, will check C. Diff PCR. = No diarrhea bowel movements. //Full code. SCDs for now. Consider Heparin after Urological procedure. Discharge Planning: Patient's father, her primary caregiver last week. She will need SNF/rehab. Continue correcting electrolyte abnormalities. We will need follow-up with urology as outpatient for bilateral ureterolithiasis. PT consult pending.
[2018-06-18] MEDS: SODIUM BICARBONATE IV.CONT SCH (11:00)
[2018-06-18] MEDS: WATER FOR INJ IV.CONT SCH (11:00)
[2018-06-18] MEDS: POTASSIUM CHLORIDE IV.CONT SCH (11:00)
[2018-06-18] MEDS: [UNRECOGNIZED DRUG - OTHER] IV.CONT SCH (11:00)
[2018-06-18] MEDS ORDERED: Mag Sulf 1 gm/100 ml Premix 100 ML IV.SIG ONE (11:30)
[2018-06-18] MEDS: Potassium Phos/Sodium Phos 250 MG Tablet PO SCH ×2 (14:05→18:05)
--- NOTE | 2018-06-18 16:22 | ECHRPT ---
Indication: Paroxysmal atrial fibrillation CONCLUSIONS Technically very difficult study, making assessment of left ventricular function and wall motion carlton y suboptimal. Grossly left venticular function appears normal. Regional wall motion abnormalities ca nnot be excluded on the basis of this study. Normal left ventricular size and wall thickness. The aortic valve is not well visualized. Possible mild leaflet calcification. There is trace tricuspid valve regurgitation. BP: / HR: 98 Rhythm: Atrial fibrillation MEASUREMENTS (Male / Female) Normal Values Technical Quality:Technically difficult study 2D ECHO LV Diastolic Diameter PLAX 4.5 cm 4.2 - 5.9 / 3.9 - 5.3 cm LV Systolic Diameter PLAX 3.4 cm IVS Diastolic Thickness 1.0 cm 0.6 - 1.0 / 0.6 - 0.9 cm LVPW Diastolic Thickness 1.0 cm 0.6 - 1.0 / 0.6 - 0.9 cm LV Relative Wall Thickness 0.4 LVOT Diameter 2.0 cm M-MODE Aortic Root Diameter MM 2.4 cm LA Systolic Diameter MM 4.6 cm LA Ao Ratio MM 1.9 AV Cusp Separation MM 1.8 cm DOPPLER AV Peak Velocity 113.0 cm/s AV Peak Gradient 5.1 mmHg LVOT Peak Velocity 76.5 cm/s LVOT Peak Gradient 2.3 mmHg AV Area Cont Eq pk 2.1 cm LV E' Septal Velocity 13.8 cm/s TR Peak Velocity 210.0 cm/s TR Peak Gradient 17.6 mmHg Right Atrial Pressure 10.0 mmHg Pulmonary Artery Systolic Pressu 27.6 mmHg Right Ventricular Systolic Press 27.6 mmHg FINDINGS LEFT VENTRICLE Technically very difficult study, making assessment of left ventricular function and wall motion carlton y suboptimal. Grossly left venticular function appears normal. Regional wall motion abnormalities ca nnot be excluded on the basis of this study. Normal left ventricular size and wall thickness. RIGHT VENTRICLE Normal right ventricular size and systolic function. LEFT ATRIUM The left atrial size is upper limits of normal. RIGHT ATRIUM The right atrial size is normal. ATRIAL SEPTUM Normal atrial septal thickness without atrial level shunting by limited color doppler interrogation. AORTA The aortic root and proximal ascending aorta are normal in size on limited imaging. MITRAL VALVE Structurally normal mitral valve. No mitral valve stenosis or regurgitation. AORTIC VALVE The aortic valve is not well visualized. Possible mild leaflet calcification. TRICUSPID VALVE There is trace tricuspid valve regurgitation. PULMONARY VALVE No pulmonary valve regurgitation or stenosis. VESSELS The inferior vena cava is normal in size. PERICARDIUM No pericardial effusion. Collin Kuhn MD (Electronically Signed) Final Date:18 June 2018 16:21
[2018-06-19] MEDS: POTASSIUM CHLORIDE IV.CONT SCH ×2 (05:17→17:22)
[2018-06-19] MEDS: SODIUM BICARBONATE IV.CONT SCH ×2 (05:17→17:22)
[2018-06-19] MEDS: WATER FOR INJ IV.CONT SCH ×2 (05:17→17:22)
[2018-06-19] MEDS: [UNRECOGNIZED DRUG - OTHER] IV.CONT SCH ×2 (05:17→17:22)
[2018-06-19 09:43] LABS: Baso # (Auto) 0.1 th/mm3 (0.0-0.2); Baso % (Auto) 0.3 % (0.0-2.0); Eos # (Auto) 0.1 th/mm3 (0.0-0.4); Eos % (Auto) 0.8 % (0.0-4.0); Hematocrit 37.8 % (35.0-46.0); Hemoglobin 13.1 gm/dL (11.6-15.3); Lymph # (Auto) 1.6 th/mm3 (1.0-4.8); Lymph % (Auto) 10.9 % (9.0-44.0); Mean Corpuscular HGB Conc 34.7 % (32.0-36.0); Mean Corpuscular Hemoglobin 29.4 pg (27.0-34.0); Mean Corpuscular Volume 84.7 fL (80.0-100.0); Mean Platelet Volume 7.7 fL (7.0-11.0); Mono # (Auto) 1.7 th/mm3 (0.0-0.9); Mono % (Auto) 11.4 % (0.0-8.0); Neut # (Auto) 11.3 th/mm3 (1.8-7.7); Neut % (Auto) 76.6 % (16.0-70.0); Platelet Count 332 th/mm3 (150-450); Red Blood Count 4.47 mil/mm3 (4.00-5.30); Red Cell Distribution Width 14.4 % (11.6-17.2); White Blood Count 14.8 th/mm3 (4.0-11.0)
[2018-06-19 10:04] LABS: Albumin 1.6 g/dL (3.4-5.0); Carbon Dioxide 17.1 meq/L (21.0-32.0); Magnesium 1.6 mg/dL (1.5-2.5); Potassium 3.7 meq/L (3.5-5.1)
[2018-06-19] MEDS: Pantoprazole Sodium 20 MG DR Tablet PO SCH (11:00)
[2018-06-19] MEDS: Metoprolol Tartrate 25 MG Tablet PO SCH ×2 (11:00→22:23)
[2018-06-19] MEDS: Potassium Phos/Sodium Phos 250 MG Tablet PO SCH ×3 (11:00→18:35)
--- NOTE | 2018-06-19 14:26 | P.PNIM ---
Subjective Interval history: Patient says she is feeling right. Denies any chest pain shortness of breath. Denies nausea or vomiting. Physical Exam Vital signs: Vital Signs 06/18/18 16:00 06/18/18 20:00 06/19/18 00:00 Temperature 98.1 F 98.9 F 98.7 F Pulse Rate 102 H 110 H 110 H Respiratory Rate 20 19 19 Blood Pressure 145/75 H 147/87 H 125/76 Pulse Oximetry 94 L 94 L 93 L 06/19/18 03:52 06/19/18 04:00 06/19/18 08:00 Temperature 98.8 F 97.7 F Pulse Rate 103 H 100 H 95 H Respiratory Rate 18 20 Blood Pressure 130/86 118/74 Pulse Oximetry 97 97 06/19/18 12:00 Temperature 97.7 F Pulse Rate 110 H Respiratory Rate 20 Blood Pressure 125/75 Pulse Oximetry 98 Intake & Output 06/18/18 06/19/18 06/19/18 18:59 06:59 18:59 Intake Total 580 / 580 1440 / 1440 Balance 580 / 580 1440 / 1440 Weight 111.1 kg Intake: IV 100 / 100 1000 / 1000 Sodium Bicarbonate 8.4% Inj 75 1000 / 1000 MEQ KCl Inj 30 MEQ In Sterile Water for Inj 910 ML @ 80 mls/ hr IV.CONT .[id number] [facility] Rx#: [id number] Rocephin Inj 2,000 MG In NS Inj 100 / 100 100 ML @ 200 mls/hr IV.SIG Q24H [facility] Rx#:[id number] Oral 480 / 480 440 / 440 Other: # Incontinent Voids 2 3 # Incontinent Bowel Movements 7 5 Narrative: GENERAL: Patient sitting up in bed. Appears comfortable. no change SKIN: Warm and dry. HEAD: Normocephalic. EYES: No scleral icterus. No injection or drainage. NECK: Supple, trachea midline. No JVD . CARDIOVASCULAR: Regular rate and rhythm without murmurs, gallops, or rubs. RESPIRATORY: Breath sounds equal bilaterally. No accessory muscle use. GASTROINTESTINAL: Abdomen soft, non-tender, nondistended. MUSCULOSKELETAL: No cyanosis, or edema. BACK: Nontender without obvious deformity. No CVA tenderness. Results - Labs CBC & Chem 7: 06/19/18 08:40 06/19/18 08:40 Laboratory Results - last 24 hr 06/19/18 06/19/18 08:40 08:40 WBC 14.8 H RBC 4.47 Hgb 13.1 Hct 37.8 MCV 84.7 MCH 29.4 MCHC 34.7 RDW 14.4 Plt Count 332 MPV 7.7 Neut % (Auto) 76.6 H Lymph % (Auto) 10.9 [place] % (Auto) 11.4 H Eos % (Auto) 0.8 Baso % (Auto) 0.3 Neut # (Auto) 11.3 H Lymph # (Auto) 1.6 [place] # (Auto) 1.7 H Eos # (Auto) 0.1 Baso # (Auto) 0.1 WBC Differential . Differential Comment Auto diff final Sodium 140 Potassium 3.7 Chloride 112 H Carbon Dioxide 17.1 L Anion Gap 11 BUN 14 Creatinine 0.75 Estimated GFR 76 L Random Glucose 99 Calcium 8.0 L Phosphorus 2.0 L Magnesium 1.6 Albumin 1.6 L Assessment and Plan - Assessment (1) Hydronephrosis Code(s): N13.30 - Unspecified hydronephrosis Status: Acute (2) Acute kidney injury Code(s): N17.9 - Acute kidney failure, unspecified Status: Acute (3) Renal calculi Code(s): N20.0 - Calculus of kidney Status: Acute - Plan Ms. Mac is a 72-year-old female with a history of GERD, hyperlipidemia who presented to the emergency department due to nausea vomiting and diarrhea that started on 06/12/2018. ED evaluation indicated hydronephrosis on the left side as well as renal stone. Her creatinine is also elevated to 3.8. Baseline unknown. Patient also developed atrial fibrillation. //Sepsis (WBC 15.9K, Heart rate over 100, suspected infection - UTI). //Possible urinary tract infection //Nephrolithiasis //Left sided hydronephrosis - ED provider discussed with Urology (Dr. Lemon) who recommended patient to be transferred to the main hospital. - Continue Ceftriaxone 1g Qday. - IV fluid NS 100cc/hour. - Morphine 4mg IV Q4hrs PRN for pain. = 06/16 follow-up urine culture. Continue IV antibiotics. Urology following. Appreciate assistance. = 06/17. E. coli on urine culture. Resistant to ampicillin/sulbactam. Follow- up renal function. If she does not improve, will need intervention by urology. Appreciate urology assistance. = 06/18. E. coli sensitive to ceftriaxone. Will switch to ceftriaxone. Will need follow-up with urology as outpatient. = Continue on ceftriaxone 10 day course. Will need follow-up with urology as outpatient. //Acute kidney injury - Baseline unknown. Cr 3.8 today. - Avoid Nephrotoxins. Will check BMP in the AM. = 06/16. Repeat BMP with improved, however suspect lab error. Repeat pending. = 06/18. Renal function back to baseline, however electrolyte abnormalities. = 06/19. Continue bicarb for non-anion gap metabolic acidosis. //Non-anion gap metabolic acidosis Bicarb of 14. Will start bicarb and fluids. = 06/19. Bicarb improving to 17. Expect to resolve by tomorrow. //Hypokalemia. = 06/16 potassium 2.9. Suspect lab error due to high sodium and chloride. Repeat check. Will replace minimally pending recheck. = 06/18. Hypokalemia has improved to 3.1. Will add to IV fluids. //Hypophosphatemia. =06/18 phosphorus 1.8. Replace yesterday, and will replaced today by mouth. Follow-up tomorrow. =06/19. Improving to 2.0. Continue p.o. replacement. Monitor. //New onset Atrial fibrillation //Hypertension - Pt received Metoprolol IV. - If BP remains high, consider Amlodipine or Nifedipine. = Pending echocardiogram. Heart rate intermittently up into the 120s A. fib RVR. Will increase metoprolol. = Improved on increased metoprolol.. Heart rate still up to 110. Echocardiogram is equivocal. Will increase metoprolol and monitor. = We will check INR again as previously it was elevated 1.4. After INR is back we will decide on anticoagulations. //Gastroenteritis - No further N/V/D in the ED. If sample is collected, will check C. Diff PCR. = No diarrhea bowel movements. //Full code. SCDs for now. Consider Heparin after Urological procedure. Discharge Planning: Patient's father, her primary caregiver last week. She will need SNF/rehab. Continue correcting electrolyte abnormalities. We will need follow-up with urology as outpatient for bilateral ureterolithiasis. PT consult pending.
[2018-06-19 22:24] LABS: INR 1.3 Ratio; Prothrombin Time 13.3 sec (9.8-11.6)
[2018-06-20] MEDS: [UNRECOGNIZED DRUG - OTHER] IV.CONT SCH ×2 (05:31→14:23)
[2018-06-20] MEDS: WATER FOR INJ IV.CONT SCH ×2 (05:31→14:23)
[2018-06-20] MEDS: SODIUM BICARBONATE IV.CONT SCH ×2 (05:31→14:23)
[2018-06-20] MEDS: POTASSIUM CHLORIDE IV.CONT SCH ×2 (05:31→14:23)
[2018-06-20] MEDS: Potassium Phos/Sodium Phos 250 MG Tablet PO SCH ×3 (08:38→18:15)
[2018-06-20] MEDS: Metoprolol Tartrate 25 MG Tablet PO SCH (08:38)
[2018-06-20] MEDS: Pantoprazole Sodium 20 MG DR Tablet PO SCH ×2 (08:38→22:40)
[2018-06-20 09:19] LABS: Baso % (Auto) 0.1 % (0.0-2.0); Eos % (Auto) 0.1 % (0.0-4.0); Hematocrit 38.7 % (35.0-46.0); Hemoglobin 12.9 gm/dL (11.6-15.3); Lymph # (Auto) 0.9 th/mm3 (1.0-4.8); Lymph % (Auto) 8.2 % (9.0-44.0); Mean Corpuscular HGB Conc 33.3 % (32.0-36.0); Mean Platelet Volume 7.4 fL (7.0-11.0); Mono # (Auto) 0.9 th/mm3 (0.0-0.9); Mono % (Auto) 8.3 % (0.0-8.0); Neut # (Auto) 9.5 th/mm3 (1.8-7.7); Neut % (Auto) 83.3 % (16.0-70.0); Platelet Count 370 th/mm3 (150-450); Red Blood Count 4.45 mil/mm3 (4.00-5.30); Red Cell Distribution Width 14.3 % (11.6-17.2); White Blood Count 11.4 th/mm3 (4.0-11.0)
[2018-06-20 09:59] LABS: Albumin 1.7 g/dL (3.4-5.0); Calcium 8.3 mg/dL (8.5-10.1); Carbon Dioxide 21.2 meq/L (21.0-32.0); Magnesium 1.8 mg/dL (1.5-2.5); Phosphorus 3.2 mg/dL (2.5-4.9); Potassium 3.4 meq/L (3.5-5.1)
[2018-06-20] MEDS ORDERED: Metoprolol Tartrate 25 MG Tablet PO ONE (12:30)
[2018-06-20] MEDS ORDERED: Mag Sulf 1 gm/100 ml Premix 100 ML IV.SIG ONE (12:30)
--- NOTE | 2018-06-20 12:55 | P.PNIM ---
Subjective Interval history: Patient says she is feeling alright. She says she has had nausea and nonbloody vomiting since arrival. Denies abdominal pain. Physical Exam Vital signs: Vital Signs 06/19/18 16:00 06/19/18 20:00 06/20/18 00:00 Temperature 97.8 F 97.6 F 98.8 F Pulse Rate 110 H 119 H 116 H Respiratory Rate 21 19 17 Blood Pressure 121/67 160/77 H 154/84 H Pulse Oximetry 98 96 97 06/20/18 04:00 06/20/18 08:00 Temperature 97.7 F 97.9 F Pulse Rate 117 H 116 H Respiratory Rate 20 20 Blood Pressure 153/79 H 112/68 Pulse Oximetry 94 L 95 Intake & Output 06/19/18 06/20/18 06/20/18 18:59 06:59 18:59 Intake Total 1000 / 1000 520 / 520 Balance 1000 / 1000 520 / 520 Weight 109.8 kg Intake: IV 1000 / 1000 100 / 100 Sodium Bicarbonate 8.4% Inj 75 1000 / 1000 MEQ KCl Inj 30 MEQ In Sterile Water for Inj 910 ML @ 80 mls/ hr IV.CONT .[id number] [facility] Rx#: [id number] Rocephin Inj 2,000 MG In NS Inj 100 / 100 100 ML @ 200 mls/hr IV.SIG Q24H [facility] Rx#:[id number] Oral 420 / 420 Other: # Voids 2 # Incontinent Voids 3 # Incontinent Bowel Movements 5 Narrative: GENERAL: Patient sitting up in bed. Appears comfortable. again no change. SKIN: Warm and dry. HEAD: Normocephalic. EYES: No scleral icterus. No injection or drainage. NECK: Supple, trachea midline. No JVD . CARDIOVASCULAR: Regular rate and rhythm without murmurs, gallops, or rubs. RESPIRATORY: Breath sounds equal bilaterally. No accessory muscle use. GASTROINTESTINAL: Abdomen soft, non-tender, nondistended. MUSCULOSKELETAL: No cyanosis, or edema. BACK: Nontender without obvious deformity. No CVA tenderness. Results - Labs CBC & Chem 7: 06/20/18 08:14 06/20/18 08:14 Laboratory Results - last 24 hr 06/19/18 06/20/18 06/20/18 21:17 08:14 08:14 WBC 11.4 H RBC 4.45 Hgb 12.9 Hct 38.7 MCV 87.0 MCH 29.0 MCHC 33.3 RDW 14.3 Plt Count 370 MPV 7.4 Neut % (Auto) 83.3 H Lymph % (Auto) 8.2 L [place] % (Auto) 8.3 H Eos % (Auto) 0.1 Baso % (Auto) 0.1 Neut # (Auto) 9.5 H Lymph # (Auto) 0.9 L [place] # (Auto) 0.9 Eos # (Auto) 0.0 Baso # (Auto) 0.0 WBC Differential . Differential Comment Auto diff final PT 13.3 H INR 1.3 Sodium 138 Potassium 3.4 L Chloride 104 D Carbon Dioxide 21.2 Anion Gap 13 BUN 17 Creatinine 0.74 Estimated GFR 78 L Random Glucose 113 H Calcium 8.3 L Phosphorus 3.2 D Magnesium 1.8 Albumin 1.7 L Assessment and Plan - Assessment (1) Hydronephrosis Code(s): N13.30 - Unspecified hydronephrosis Status: Acute (2) Acute kidney injury Code(s): N17.9 - Acute kidney failure, unspecified Status: Acute (3) Renal calculi Code(s): N20.0 - Calculus of kidney Status: Acute - Plan Ms. Mac is a 72-year-old female with a history of GERD, hyperlipidemia who presented to the emergency department due to nausea vomiting and diarrhea that started on 06/12/2018. ED evaluation indicated hydronephrosis on the left side as well as renal stone. Her creatinine is also elevated to 3.8. Baseline unknown. Patient also developed atrial fibrillation. //Sepsis (WBC 15.9K, Heart rate over 100, suspected infection - UTI). //Possible urinary tract infection //Nephrolithiasis //Left sided hydronephrosis - ED provider discussed with Urology (Dr. Lemon) who recommended patient to be transferred to the main hospital. - Continue Ceftriaxone 1g Qday. - IV fluid NS 100cc/hour. - Morphine 4mg IV Q4hrs PRN for pain. = 06/16 follow-up urine culture. Continue IV antibiotics. Urology following. Appreciate assistance. = 06/17. E. coli on urine culture. Resistant to ampicillin/sulbactam. Follow- up renal function. If she does not improve, will need intervention by urology. Appreciate urology assistance. = 06/18. E. coli sensitive to ceftriaxone. Will switch to ceftriaxone. Will need follow-up with urology as outpatient. = Continue on ceftriaxone 10 day course. Will need follow-up with urology as outpatient. //Acute kidney injury - Baseline unknown. Cr 3.8 today. - Avoid Nephrotoxins. Will check BMP in the AM. = 06/16. Repeat BMP with improved, however suspect lab error. Repeat pending. = 06/18. Renal function back to baseline, however electrolyte abnormalities. = 06/19. Continue bicarb for non-anion gap metabolic acidosis. = 06/20. Continue bicarb 1 more day. //Non-anion gap metabolic acidosis Bicarb of 14. Will start bicarb and fluids. = 06/19. Bicarb improving to 17. Expect to resolve by tomorrow. //Hypokalemia. = 06/16 potassium 2.9. Suspect lab error due to high sodium and chloride. Repeat check. Will replace minimally pending recheck. = 06/18. Hypokalemia has improved to 3.1. Will add to IV fluids. = 06/20. Potassium 3.4. Continue fluids with potassium. Continue to monitor. //Hypophosphatemia. =06/18 phosphorus 1.8. Replace yesterday, and will replaced today by mouth. Follow-up tomorrow. =06/19. Improving to 2.0. Continue p.o. replacement. Monitor. = 06/20. Resolved. 3.2. Continue to monitor. //New onset Atrial fibrillation //Hypertension - Pt received Metoprolol IV. - If BP remains high, consider Amlodipine or Nifedipine. = Pending echocardiogram. Heart rate intermittently up into the 120s A. fib RVR. Will increase metoprolol. = Improved on increased metoprolol.. Heart rate still up to 110. Echocardiogram is equivocal. Will increase metoprolol and monitor. = We will check INR again as previously it was elevated 1.4. After INR is back we will decide on anticoagulations. = Heart rate continues in the 120s. Increase metoprolol. Echocardiogram very poor quality. Will consult cardiology for new onset atrial fibrillation. //Gastroenteritis - No further N/V/D in the ED. If sample is collected, will check C. Diff PCR. = Patient continues with loose stools per discussion with nursing. Unable to get C. difficile sample however. Discussed with nursing again today, will try a rectal collection apparatus. //Full code. SCDs for now. Consider Heparin after Urological procedure. Discharge Planning: Patient's father, her primary caregiver last week. She will need SNF/rehab. Continue correcting electrolyte abnormalities. We will need follow-up with urology as outpatient for bilateral ureterolithiasis. = Hopefully discharge to SNF on Friday.
--- NOTE | 2018-06-20 14:53 | P.CONCA ---
History of Present Illness Consult date: 06/20/18 Primary Care Provider: Do Sarah Barreto Chief Complaint: Nausea, vomiting, diarrhea. History of Present Illness: This is a very pleasant 72 year old female with a past medical history of HLD, GERD, who presented on 06/15/18 secondary to nausea and vomitting. She was found to have bilateral renal calculi and obstructing proximal uretereal stones with moderate left sided hydronephrosis. The patient had an new onset of atrial fibrillation (reviewed) which responded with IV metoprolol. She currently has sinus tachycardia. No CP/SOB present. 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 - Medical / Surgical Hx Neg / Unobtainable Medical Problems Denied: Unable to Obtain - Tobacco History Smoking Status: Never smoker - Alcohol History How Often Do You Have a Drink Containing Alcohol: Never - Substance Use History Substance History: No History of Abuse - Travel History Recent Travel in the [facility] Within the Last 8 Weeks: No Recent Travel Out of the Country Within the Last 8 Weeks: No - Immunization History Tetanus Immunization: Unsure Hx Influenza Vaccine This Season: Yes Medications and Allergies Active Medications: Active Medications Acetaminophen (Tylenol) 650 mg PO Q4H PRN PRN Reason: Headache, fever, pain 1-5 Al Hydroxide/Mg Hydroxide (Milk Of Magnesia Liq) 30 ml PO Q12H PRN PRN Reason: Mild Constipation Bisacodyl (Dulcolax Supp) 10 mg RECTAL DAILY PRN PRN Reason: SEVERE CONSITIPATION Sodium Chloride (Ns Inj) 1,000 mls @ 0 mls/hr IV.SIG BOLUS [facility] Last Infusion: 06/15/18 15:26 Dose: Infused Sodium Bicarbonate 75 meq/Potassium Chloride 30 meq/Sterile Water 1,000 mls @ 45 mls/hr IV.CONT .[id number] [facility] Last Admin: 06/20/18 14:23 Dose: 80 mls/hr Ceftriaxone Sodium 2,000 mg/ (Sodium Chloride) 100 mls @ 200 mls/hr IV.SIG Q24H [facility] Last Infusion: 06/19/18 19:11 Dose: Infused Lactulose (Lactulose Liq) 30 ml PO DAILY PRN PRN Reason: SEVERE CONSITIPATION Metoprolol Tartrate (Lopressor) 100 mg PO BID [facility] Morphine Sulfate (Morphine Inj) 4 mg IV.PUSH Q4H PRN PRN Reason: Pain 5-10 Ondansetron HCl (Zofran Inj) 4 mg IV.PUSH Q6H PRN PRN Reason: NAUSEA OR VOMITING Last Admin: 06/20/18 08:47 Dose: 4 mg Pantoprazole Sodium (Protonix) 20 mg PO BID [facility] Potassium Phos/Sodium Phos (K-Phos Neutral) 250 mg PO TID [facility] Last Admin: 06/20/18 13:30 Dose: 250 mg Sennosides (Senokot) 17.2 mg PO Q12H PRN PRN Reason: Moderate Constipation Sodium Chloride (Ns Flush) 2 ml IV.FLUSH PRN PRN PRN Reason: FLUSH AFTER USING IV ACCESS Allergies Allergy/AdvReac Type Severity Reaction Status Date / Time erythromycin base Allergy Diarrhea Verified 06/15/18 11:12 Home Medications Medication Instructions Recorded Confirmed Type aspirin [Aspir-Low] 81 mg PO DAILY 06/15/18 06/15/18 History cholecalciferol (vitamin D3) 2,000 unit PO DAILY 06/15/18 06/15/18 History [Vitamin D3] omeprazole 20 mg PO DAILY 06/15/18 06/15/18 History simvastatin mg PO QPM 06/15/18 History vit C,K-Tr-ylmtq-lutein-zeaxan 1 tab PO BID 06/15/18 06/15/18 History [PreserVision AREDS 2] Exam Vital signs: Vital Signs 06/19/18 16:00 06/19/18 20:00 06/20/18 00:00 Temperature 97.8 F 97.6 F 98.8 F Pulse Rate 110 H 119 H 116 H Respiratory Rate 21 19 17 Blood Pressure 121/67 160/77 H 154/84 H Pulse Oximetry 98 96 97 06/20/18 04:00 06/20/18 08:00 06/20/18 12:00 Temperature 97.7 F 97.9 F 98.0 F Pulse Rate 117 H 116 H 121 H Respiratory Rate 20 20 20 Blood Pressure 153/79 H 112/68 136/65 Pulse Oximetry 94 L 95 94 L Intake & Output 06/19/18 06/20/18 06/20/18 18:59 06:59 18:59 Intake Total 1000 / 1000 520 / 520 Balance 1000 / 1000 520 / 520 Weight 109.8 kg Intake: IV 1000 / 1000 100 / 100 Sodium Bicarbonate 8.4% Inj 75 1000 / 1000 MEQ KCl Inj 30 MEQ In Sterile Water for Inj 910 ML @ 80 mls/ hr IV.CONT .[id number] [facility] Rx#: [id number] Rocephin Inj 2,000 MG In NS Inj 100 / 100 100 ML @ 200 mls/hr IV.SIG Q24H [facility] Rx#:[id number] Oral 420 / 420 Other: # Voids 2 # Incontinent Voids 3 # Incontinent Bowel Movements 5 - Constitutional no acute distress, average body habitus - Routine HEENT Exam Head: Present: normocephalic Eye: Present: EOMI ENT: Present: mucous membranes moist - Routine Neck Exam Present: supple. Absent: JVD - Routine Respiratory Exam Present: CTA bilaterally - Routine Cardiovascular Exam Present: S1, S2, tachycardia - Routine Abdominal Exam Present: soft, normoactive bowel sounds. Absent: tenderness - Routine Extremities Exam Absent: edema - Routine Skin Exam Present: intact - Routine Neurological Exam Present: alert, oriented X3, CN II-XII intact - Routine Psychiatric Exam Present: normal affect Results 06/22/18 07:20 06/22/18 07:20 Coagulation 06/19/18 Range/Units 21:17 PT 13.3 H (9.8-11.6) sec CBC 06/20/18 Range/Units 08:14 WBC 11.4 H (4.0-11.0) th/mm3 RBC 4.45 (4.00-5.30) mil/mm3 Hgb 12.9 (11.6-15.3) gm/dL Hct 38.7 (35.0-46.0) % Plt Count 370 (150-450) th/mm3 Neut # (Auto) 9.5 H (1.8-7.7) th/mm3 Lymph # (Auto) 0.9 L (1.0-4.8) th/mm3 [place] # (Auto) 0.9 (0.0-0.9) th/mm3 Eos # (Auto) 0.0 (0.0-0.4) th/mm3 Baso # (Auto) 0.0 (0.0-0.2) th/mm3 Comprehensive Metabolic Panel 06/20/18 Range/Units 08:14 Sodium 138 (136-145) meq/L Potassium 3.4 L (3.5-5.1) meq/L Chloride 104 D (98-107) meq/L Carbon Dioxide 21.2 (21.0-32.0) meq/L BUN 17 (7-18) mg/dL Creatinine 0.74 (0.50-1.00) mg/dL Calcium 8.3 L (8.5-10.1) mg/dL Albumin 1.7 L (3.4-5.0) g/dL Intake and Output 06/19/18 06/20/18 06/20/18 22:59 06:59 14:59 Intake Total 1100 / 1100 420 / 420 Balance 1100 / 1100 420 / 420 Intake: IV 1100 / 1100 Sodium Bicarbonate 8.4% Inj 75 1000 / 1000 MEQ KCl Inj 30 MEQ In Sterile Water for Inj 910 ML @ 80 mls/ hr IV.CONT .[id number] [facility] Rx#: [id number] Rocephin Inj 2,000 MG In NS Inj 100 / 100 100 ML @ 200 mls/hr IV.SIG Q24H [facility] Rx#:[id number] Oral 420 / 420 Other: # Voids 2 # Incontinent Voids 3 # Incontinent Bowel Movements 5 Weight 109.8 kg EKG interpretations - Dysrhythmias Sinus rhythms and dysrhythmias: sinus tachycardia Assessment and Plan - Plan New onset pAfib appears to be in sinus tachycardia, did review strips showing Afib Her [id number] is 3 (Age, Female, an HTN) Given that she will likely require a urological intervention, Would recommend starting Eliquis 5mg po BID. INR wont need to be monitored and it can be stopped if need periprocedural She should continue metoprolol as well. Thank you for allowing me to participate, feel free to contact me.
[2018-06-20] MEDS: Metoprolol Tartrate 100 MG Tablet PO SCH (22:40)
[2018-06-21] MEDS: Potassium Phos/Sodium Phos 250 MG Tablet PO SCH ×2 (09:03→13:25)
[2018-06-21] MEDS: Pantoprazole Sodium 20 MG DR Tablet PO SCH (09:03)
[2018-06-21] MEDS: Metoprolol Tartrate 100 MG Tablet PO SCH ×2 (09:03→22:01)
--- NOTE | 2018-06-21 13:10 | ECG ---
Date Performed: 06/20/2018 Time Performed: 15:04:26 PTAGE: 72 years EKG: SINUS TACHYCARDIA NONSPECIFIC T-WAVE ABNORMALITY ABNORMAL ECG PREVIOUS TRACING : 06/15/2018 16.35 Since the previous tracing, no significant change noted DOCTOR: Amilcar Macedo Interpretating Date/Time 06/21/2018 13:08:17
--- NOTE | 2018-06-21 13:15 | P.PNIM ---
Subjective Interval history: Says she is overall feeling all right except for some nausea with dry heaves. Still with some loose stool. Denies abdominal pain. Physical Exam Vital signs: Vital Signs 06/20/18 16:00 06/20/18 20:00 06/21/18 00:00 Temperature 98.6 F 98.4 F Pulse Rate 119 H 109 H 93 H Respiratory Rate 20 18 Blood Pressure 118/71 122/68 Pulse Oximetry 94 L 93 L 06/21/18 04:00 06/21/18 08:00 Temperature 98.2 F 98.2 F Pulse Rate 94 H 82 Respiratory Rate 20 18 Blood Pressure 111/66 132/63 Pulse Oximetry 94 L 97 Intake & Output 06/20/18 06/21/18 06/21/18 18:59 06:59 18:59 Intake Total 200 / 200 600 / 600 Balance 200 / 200 600 / 600 Weight 107.4 kg Intake: IV 200 / 200 600 / 600 Sodium Bicarbonate 8.4% Inj 75 600 / 600 MEQ KCl Inj 30 MEQ In Sterile Water for Inj 910 ML @ 45 mls/ hr IV.CONT .[id number] [facility] Rx#: [id number] Rocephin Inj 2,000 MG In NS Inj 100 / 100 100 ML @ 200 mls/hr IV.SIG Q24H [facility] Rx#:[id number] Other: # Voids 3 Date of Last Bowel Movement 06/20/18 # Bowel Movements 2 Narrative: GENERAL: Patient sitting up in bed. Appears comfortable. Alert, oriented 3. SKIN: Warm and dry. HEAD: Normocephalic. EYES: No scleral icterus. No injection or drainage. NECK: Supple, trachea midline. No JVD . CARDIOVASCULAR: Regular rate and rhythm without murmurs, gallops, or rubs. RESPIRATORY: Breath sounds equal bilaterally. No accessory muscle use. GASTROINTESTINAL: Abdomen soft, non-tender, nondistended. MUSCULOSKELETAL: No cyanosis, or edema. BACK: Nontender without obvious deformity. No CVA tenderness. Results - Labs CBC & Chem 7: 06/20/18 08:14 06/20/18 08:14 Laboratory Results - last 24 hr 06/20/18 14:25 St C. diff Tox Epid 027 Negative C. difficile Tox (PCR) Negative Assessment and Plan - Assessment (1) Hydronephrosis Code(s): N13.30 - Unspecified hydronephrosis Status: Acute (2) Acute kidney injury Code(s): N17.9 - Acute kidney failure, unspecified Status: Acute (3) Renal calculi Code(s): N20.0 - Calculus of kidney Status: Acute - Plan Ms. Mac is a 72-year-old female with a history of GERD, hyperlipidemia who presented to the emergency department due to nausea vomiting and diarrhea that started on 06/12/2018. ED evaluation indicated hydronephrosis on the left side as well as renal stone. Her creatinine is also elevated to 3.8. Baseline unknown. Patient also developed atrial fibrillation. //Sepsis (WBC 15.9K, Heart rate over 100, suspected infection - UTI). //Possible urinary tract infection //Nephrolithiasis //Left sided hydronephrosis - ED provider discussed with Urology (Dr. Lemon) who recommended patient to be transferred to the [facility]. - Continue Ceftriaxone 1g Qday. - IV fluid NS 100cc/hour. - Morphine 4mg IV Q4hrs PRN for pain. = 06/16 follow-up urine culture. Continue IV antibiotics. Urology following. Appreciate assistance. = 06/17. E. coli on urine culture. Resistant to ampicillin/sulbactam. Follow- up renal function. If she does not improve, will need intervention by urology. Appreciate urology assistance. = 06/18. E. coli sensitive to ceftriaxone. Will switch to ceftriaxone. Will need follow-up with urology as outpatient. = Continue on antibiotics for 10 day course. Stop date treatment on 06/26. will need follow-up with urology as outpatient. //Acute kidney injury - Baseline unknown. Cr 3.8 today. - Avoid Nephrotoxins. Will check BMP in the AM. = 06/16. Repeat BMP with improved, however suspect lab error. Repeat pending. = 06/18. Renal function back to baseline, however electrolyte abnormalities. = 06/19. Continue bicarb for non-anion gap metabolic acidosis. = 06/20. Continue bicarb 1 more day. = 06/21. Follow-up labs tomorrow. Discontinue bicarb. //Non-anion gap metabolic acidosis Bicarb of 14. Will start bicarb and fluids. = 06/19. Bicarb improving to 17. Expect to resolve by tomorrow. = Resolved after replacement. Monitor off of bicarb. //Hypokalemia. = 06/16 potassium 2.9. Suspect lab error due to high sodium and chloride. Repeat check. Will replace minimally pending recheck. = 06/18. Hypokalemia has improved to 3.1. Will add to IV fluids. = 06/20. Potassium 3.4. Continue fluids with potassium. Continue to monitor. //Hypophosphatemia. =06/18 phosphorus 1.8. Replace yesterday, and will replaced today by mouth. Follow-up tomorrow. =06/19. Improving to 2.0. Continue p.o. replacement. Monitor. = 06/20. Resolved. 3.2. Continue to monitor. //New onset Atrial fibrillation //Hypertension - Pt received Metoprolol IV. - If BP remains high, consider Amlodipine or Nifedipine. = Pending echocardiogram. Heart rate intermittently up into the 120s A. fib RVR. Will increase metoprolol. = Improved on increased metoprolol.. Heart rate still up to 110. Echocardiogram is equivocal. Will increase metoprolol and monitor. = We will check INR again as previously it was elevated 1.4. After INR is back we will decide on anticoagulations. = Heart rate continues in the 120s. Increase metoprolol. Echocardiogram very poor quality. Will consult cardiology for new onset atrial fibrillation. = Appreciate cardiology assistance. Continue on metoprolol. Eliquis to be started. //Gastroenteritis //Colitis - No further N/V/D in the ED. If sample is collected, will check C. Diff PCR. = Patient continues with loose stools per discussion with nursing. Unable to get C. difficile sample however. Discussed with nursing again today, will try a rectal collection apparatus. -will add Flagyl for suspected colitis. As seen on CT for admission. C. difficile is negative //Full code. SCDs for now. Consider Heparin after Urological procedure. Discharge Planning: Patient's father, her primary caregiver last week. She will need SNF/rehab. Continue correcting electrolyte abnormalities. We will need follow-up with urology as outpatient for bilateral ureterolithiasis. = Hopefully discharge to SNF on Friday.
[2018-06-21] MEDS: WATER FOR INJ IV.CONT SCH (13:25)
[2018-06-21] MEDS: [UNRECOGNIZED DRUG - OTHER] IV.CONT SCH (13:25)
[2018-06-21] MEDS: SODIUM BICARBONATE IV.CONT SCH (13:25)
[2018-06-21] MEDS: POTASSIUM CHLORIDE IV.CONT SCH (13:25)
[2018-06-21] MEDS: levoFLOXacin 750 MG Tablet PO SCH (15:20)
[2018-06-22 07:59] LABS: Baso % (Auto) 0.1 % (0.0-2.0); Eos # (Auto) 0.1 th/mm3 (0.0-0.4); Eos % (Auto) 1.8 % (0.0-4.0); Hematocrit 36.5 % (35.0-46.0); Hemoglobin 12.1 gm/dL (11.6-15.3); Lymph # (Auto) 0.8 th/mm3 (1.0-4.8); Lymph % (Auto) 11.6 % (9.0-44.0); Mean Corpuscular HGB Conc 33.1 % (32.0-36.0); Mean Corpuscular Hemoglobin 29.2 pg (27.0-34.0); Mean Platelet Volume 7.4 fL (7.0-11.0); Mono % (Auto) 14.9 % (0.0-8.0); Neut # (Auto) 4.8 th/mm3 (1.8-7.7); Neut % (Auto) 71.6 % (16.0-70.0); Platelet Count 327 th/mm3 (150-450); Red Blood Count 4.15 mil/mm3 (4.00-5.30); Red Cell Distribution Width 14.4 % (11.6-17.2); White Blood Count 6.6 th/mm3 (4.0-11.0)
[2018-06-22 08:10] LABS: Albumin 1.5 g/dL (3.4-5.0); Calcium 7.7 mg/dL (8.5-10.1); Carbon Dioxide 21.6 meq/L (21.0-32.0); Magnesium 1.6 mg/dL (1.5-2.5); Phosphorus 3.1 mg/dL (2.5-4.9)
[2018-06-22] MEDS ORDERED: Mag Sulf 1 gm/100 ml Premix 100 ML IV.SIG ONE (08:18)
[2018-06-22] MEDS: levoFLOXacin 750 MG Tablet PO SCH (09:01)
[2018-06-22] MEDS: Metoprolol Tartrate 100 MG Tablet PO SCH ×2 (09:01→22:19)
--- NOTE | 2018-06-22 09:31 | P.PNIM ---
Subjective Interval history: Says the nausea has resolved. Denies any chest pain or shortness of breath. Small loose stool accidents, 4 recorded over the past day.. Patient denies any abdominal discomfort. Physical Exam Vital signs: Vital Signs 06/21/18 12:00 06/21/18 16:00 06/21/18 20:00 Temperature 98.0 F 98.3 F 98.2 F Pulse Rate 104 H 106 H 108 H Respiratory Rate 18 18 Blood Pressure 125/58 L 118/64 112/67 Pulse Oximetry 94 L 95 94 L 06/22/18 00:00 06/22/18 04:00 06/22/18 08:00 Temperature 98.8 F 98.0 F 98.0 F Pulse Rate 84 91 H 92 H Respiratory Rate 18 Blood Pressure 108/77 114/76 106/66 Pulse Oximetry 98 96 96 Intake & Output 06/21/18 06/22/18 06/22/18 18:59 06:59 18:59 Intake Total 860 / 860 200 / 200 Balance 860 / 860 200 / 200 Weight 110.4 kg Intake: IV 500 / 500 200 / 200 Sodium Bicarbonate 8.4% Inj 75 400 / 400 MEQ KCl Inj 30 MEQ In Sterile Water for Inj 910 ML @ 45 mls/ hr IV.CONT .[id number] [facility] Rx#: [id number] Flagyl 500 MG Inj 100 ML @ 100 100 / 100 200 / 200 mls/hr IV.SIG Q6H [facility] Rx#: [id number] Oral 360 / 360 Other: # Voids 2 4 # Incontinent Voids 2 Date of Last Bowel Movement 06/21/18 # Bowel Movements 2 # Incontinent Bowel Movements 4 Narrative: GENERAL: Patient sitting up in bed. Appears comfortable. Alert, oriented 3. Exam unchanged from yesterday. SKIN: Warm and dry. HEAD: Normocephalic. EYES: No scleral icterus. No injection or drainage. NECK: Supple, trachea midline. No JVD . CARDIOVASCULAR: Regular rate and rhythm without murmurs, gallops, or rubs. RESPIRATORY: Breath sounds equal bilaterally. No accessory muscle use. GASTROINTESTINAL: Abdomen soft, non-tender, nondistended. MUSCULOSKELETAL: No cyanosis, or edema. BACK: Nontender without obvious deformity. No CVA tenderness. Results - Labs CBC & Chem 7: 06/22/18 07:20 06/22/18 07:20 Laboratory Results - last 24 hr 06/22/18 06/22/18 07:20 07:20 WBC 6.6 RBC 4.15 Hgb 12.1 Hct 36.5 MCV 88.0 MCH 29.2 MCHC 33.1 RDW 14.4 Plt Count 327 MPV 7.4 Neut % (Auto) 71.6 H Lymph % (Auto) 11.6 [place] % (Auto) 14.9 H Eos % (Auto) 1.8 Baso % (Auto) 0.1 Neut # (Auto) 4.8 Lymph # (Auto) 0.8 L [place] # (Auto) 1.0 H Eos # (Auto) 0.1 Baso # (Auto) 0.0 WBC Differential . Differential Comment Auto diff final Sodium 138 Potassium 3.0 L Chloride 106 Carbon Dioxide 21.6 Anion Gap 10 BUN 16 Creatinine 0.78 Estimated GFR 73 L Random Glucose 81 Calcium 7.7 L Phosphorus 3.1 Magnesium 1.6 Albumin 1.5 L Assessment and Plan - Assessment (1) Hydronephrosis Code(s): N13.30 - Unspecified hydronephrosis Status: Acute (2) Acute kidney injury Code(s): N17.9 - Acute kidney failure, unspecified Status: Acute (3) Renal calculi Code(s): N20.0 - Calculus of kidney Status: Acute - Plan Ms. Mac is a 72-year-old female with a history of GERD, hyperlipidemia who presented to the emergency department due to nausea vomiting and diarrhea that started on 06/12/2018. ED evaluation indicated hydronephrosis on the left side as well as renal stone. Her creatinine is also elevated to 3.8. Baseline unknown. Patient also developed atrial fibrillation. //Sepsis (WBC 15.9K, Heart rate over 100, suspected infection - UTI). //Possible urinary tract infection //Nephrolithiasis //Left sided hydronephrosis - ED provider discussed with Urology (Dr. Lemon) who recommended patient to be transferred to the main hospital. - Continue Ceftriaxone 1g Qday. - IV fluid NS 100cc/hour. - Morphine 4mg IV Q4hrs PRN for pain. = 06/16 follow-up urine culture. Continue IV antibiotics. Urology following. Appreciate assistance. = 06/17. E. coli on urine culture. Resistant to ampicillin/sulbactam. Follow- up renal function. If she does not improve, will need intervention by urology. Appreciate urology assistance. = 06/18. E. coli sensitive to ceftriaxone. Will switch to ceftriaxone. Will need follow-up with urology as outpatient. = Continue on antibiotics for 10 day course. Stop date treatment on 06/26. will need follow-up with urology as outpatient. = 06/22. Have added metronidazole for possible colitis seen on CT. //Acute kidney injury - Baseline unknown. Cr 3.8 today. - Avoid Nephrotoxins. Will check BMP in the AM. = 06/16. Repeat BMP with improved, however suspect lab error. Repeat pending. = 06/18. Renal function back to baseline, however electrolyte abnormalities. = 06/19. Continue bicarb for non-anion gap metabolic acidosis. = 06/20. Continue bicarb 1 more day. = 06/21. Follow-up labs tomorrow. Discontinue bicarb. = 06/22. Bicarb stable off of bicarb drip. Creatinine stable. //Non-anion gap metabolic acidosis Bicarb of 14. Will start bicarb and fluids. = 06/19. Bicarb improving to 17. Expect to resolve by tomorrow. = Resolved after replacement. Monitor off of bicarb. //Hypokalemia. = 06/16 potassium 2.9. Suspect lab error due to high sodium and chloride. Repeat check. Will replace minimally pending recheck. = 06/18. Hypokalemia has improved to 3.1. Will add to IV fluids. = 06/20. Potassium 3.4. Continue fluids with potassium. Continue to monitor. = 06/22. Potassium 3.0. Start daily replacement. //Hypophosphatemia. = Resolved after replacement //New onset Atrial fibrillation //Hypertension - Pt received Metoprolol IV. - If BP remains high, consider Amlodipine or Nifedipine. = Pending echocardiogram. Heart rate intermittently up into the 120s A. fib RVR. Will increase metoprolol. = Improved on increased metoprolol.. Heart rate still up to 110. Echocardiogram is equivocal. Will increase metoprolol and monitor. = We will check INR again as previously it was elevated 1.4. After INR is back we will decide on anticoagulations. = Heart rate continues in the 120s. Increase metoprolol. Echocardiogram very poor quality. Will consult cardiology for new onset atrial fibrillation. = Appreciate cardiology assistance. Continue on metoprolol. Start start Eliquis //Gastroenteritis //Colitis - No further N/V/D in the ED. If sample is collected, will check C. Diff PCR. = Patient continues with loose stools per discussion with nursing. Unable to get C. difficile sample however. Discussed with nursing again today, will try a rectal collection apparatus. -will add Flagyl for suspected colitis. As seen on CT for admission. C. difficile is negative = 06/22. Incontinent bowel movements. Likely secondary to antibiotics. C. difficile recently negative. No abdominal pain. Will check enteric pathogens, then can start Imodium //Full code. SCDs for now. Consider Heparin after Urological procedure. Discharge Planning: Patient's father, her primary caregiver last week. She will need SNF/rehab. Continue correcting electrolyte abnormalities. We will need follow-up with urology as outpatient for bilateral ureterolithiasis. = Hopefully discharge to SNF today or tomorrow.
--- NOTE | 2018-06-23 09:56 | P.PNIM ---
Subjective Interval history: Patient says she is feeling right. Denies any chest pain shortness of breath. Denies nausea or vomiting. Says that loose stools have improved. Patient reports that she has been chewing sugar-free gum and candies continuously for dry mouth during hospitalization. We discussed that due to sugar alcohols and sugar free gum, this can cause loose stools. Physical Exam Vital signs: Vital Signs 06/22/18 12:00 06/22/18 16:00 06/22/18 20:00 Temperature 97.9 F 97.2 F L 98 F Pulse Rate 85 89 89 Respiratory Rate 18 18 20 Blood Pressure 95/61 L 121/72 112/56 L Pulse Oximetry 97 95 93 L 06/23/18 00:00 06/23/18 04:00 06/23/18 08:00 Temperature 97.5 F L 97.8 F 98.7 F Pulse Rate 90 94 H 84 Respiratory Rate 20 20 16 Blood Pressure 127/67 128/75 112/60 Pulse Oximetry 93 L 95 94 L Intake & Output 06/22/18 06/23/18 06/23/18 18:59 06:59 18:59 Intake Total 300 / 300 680 / 680 Balance 300 / 300 680 / 680 Weight 110 kg Intake: IV 300 / 300 200 / 200 Magnesium Sulfate 1 gm/D5W 100 100 / 100 ml Premix 100 ML @ 100 mls/hr IV.SIG ONCE [facility] Rx#:[id number] Flagyl 500 MG Inj 100 ML @ 100 200 / 200 200 / 200 mls/hr IV.SIG Q6H [facility] Rx#: [id number] Oral 480 / 480 Other: # Incontinent Voids 3 Date of Last Bowel Movement 06/23/18 # Bowel Movements 2 # Incontinent Bowel Movements 2 Narrative: GENERAL: Patient sitting up in bed. Appears comfortable. Alert, oriented 3. SKIN: Warm and dry. HEAD: Normocephalic. EYES: No scleral icterus. No injection or drainage. NECK: Supple, trachea midline. No JVD . CARDIOVASCULAR: Regular rate and rhythm without murmurs, gallops, or rubs. RESPIRATORY: Breath sounds equal bilaterally. No accessory muscle use. GASTROINTESTINAL: Abdomen soft, non-tender, nondistended. MUSCULOSKELETAL: No cyanosis, or edema. BACK: Nontender without obvious deformity. No CVA tenderness. Results - Labs CBC & Chem 7: 06/22/18 07:20 06/22/18 07:20 Microbiology 06/22/18 12:00 Stool Enteric Pathogens (PCR) - Final No enteric pathogens detected by PCR (No Salmonella sp., Shigella sp., Campylobacter sp., Yersinia enterocolitica, Vibrio sp., Norovirus, or EHEC (Shiga Toxin 1 or Shiga Toxin 2) detected. Assessment and Plan - Assessment (1) Hydronephrosis Code(s): N13.30 - Unspecified hydronephrosis Status: Acute (2) Acute kidney injury Code(s): N17.9 - Acute kidney failure, unspecified Status: Acute (3) Renal calculi Code(s): N20.0 - Calculus of kidney Status: Acute - Plan Ms. Mac is a 72-year-old female with a history of GERD, hyperlipidemia who presented to the emergency department due to nausea vomiting and diarrhea that started on 06/12/2018. ED evaluation indicated hydronephrosis on the left side as well as renal stone. Her creatinine is also elevated to 3.8. Baseline unknown. Patient also developed atrial fibrillation. //Sepsis (WBC 15.9K, Heart rate over 100, suspected infection - UTI). //Possible urinary tract infection //Nephrolithiasis //Left sided hydronephrosis - ED provider discussed with Urology (Dr. Lemon) who recommended patient to be transferred to the [facility]. - Continue Ceftriaxone 1g Qday. - IV fluid NS 100cc/hour. - Morphine 4mg IV Q4hrs PRN for pain. = 06/16 follow-up urine culture. Continue IV antibiotics. Urology following. Appreciate assistance. = 06/17. E. coli on urine culture. Resistant to ampicillin/sulbactam. Follow- up renal function. If she does not improve, will need intervention by urology. Appreciate urology assistance. = 06/18. E. coli sensitive to ceftriaxone. Will switch to ceftriaxone. Will need follow-up with urology as outpatient. = Continue on antibiotics for 10 day course. Stop date treatment on 06/26. will need follow-up with urology as outpatient. = 06/22. Have added metronidazole for possible colitis seen on CT. = Continue antibiotics to complete treatment course. //Acute kidney injury - Baseline unknown. Cr 3.8 today. - Avoid Nephrotoxins. Will check BMP in the AM. = 06/16. Repeat BMP with improved, however suspect lab error. Repeat pending. = 06/18. Renal function back to baseline, however electrolyte abnormalities. = 06/19. Continue bicarb for non-anion gap metabolic acidosis. = 06/20. Continue bicarb 1 more day. = 06/21. Follow-up labs tomorrow. Discontinue bicarb. = 06/22. Bicarb stable off of bicarb drip. Creatinine stable. //Non-anion gap metabolic acidosis Bicarb of 14. Will start bicarb and fluids. = 06/19. Bicarb improving to 17. Expect to resolve by tomorrow. = Resolved after replacement. Monitor off of bicarb. //Hypokalemia. = 06/16 potassium 2.9. Suspect lab error due to high sodium and chloride. Repeat check. Will replace minimally pending recheck. = 06/18. Hypokalemia has improved to 3.1. Will add to IV fluids. = 06/20. Potassium 3.4. Continue fluids with potassium. Continue to monitor. = 06/22. Potassium 3.0. Start daily replacement. //Hypophosphatemia. = Resolved after replacement //New onset Atrial fibrillation //Hypertension - Pt received Metoprolol IV. - If BP remains high, consider Amlodipine or Nifedipine. = Pending echocardiogram. Heart rate intermittently up into the 120s A. fib RVR. Will increase metoprolol. = Improved on increased metoprolol.. Heart rate still up to 110. Echocardiogram is equivocal. Will increase metoprolol and monitor. = We will check INR again as previously it was elevated 1.4. After INR is back we will decide on anticoagulations. = Heart rate continues in the 120s. Increase metoprolol. Echocardiogram very poor quality. Will consult cardiology for new onset atrial fibrillation. = Appreciate cardiology assistance. Continue on metoprolol. Start start Eliquis //Gastroenteritis //Colitis - No further N/V/D in the ED. If sample is collected, will check C. Diff PCR. = Patient continues with loose stools per discussion with nursing. Unable to get C. difficile sample however. Discussed with nursing again today, will try a rectal collection apparatus. -will add Flagyl for suspected colitis. As seen on CT for admission. C. difficile is negative = 06/22. Incontinent bowel movements. Likely secondary to antibiotics. C. difficile recently negative. No abdominal pain. Will check enteric pathogens, then can start Imodium = 06/23. No infectious pathogens on stool testing negative C. difficile during admission. Loose stools likely secondary to antibiotics, as well as sugar-free gum. //Full code. SCDs for now. Consider Heparin after Urological procedure. Discharge Planning: Patient's father, her primary caregiver last week. She will need SNF/rehab. Continue correcting electrolyte abnormalities. We will need follow-up with urology as outpatient for bilateral ureterolithiasis. =discharge to SNF today.
--- NOTE | 2018-06-23 10:00 | P.DS ---
Date of admission: 06/15/18 15:41 Primary care physician: Do Sarah Barreto Brief History from admission: Ms. Mac was seen in the emergency room. She is somewhat lethargic and drowsy and thus difficult to obtain proper history and physical. Ms. Mac is a 72-year-old female with a history of hyperlipidemia, GERD who presents to the emergency department on 06/15/2018 due to nausea vomiting and diarrhea. Her symptoms started on 06/12/2018. One of patient's family members called EMS because she was very lethargic and appeared dehydrated. CT abdomen pelvis shows bilateral renal calculi and obstructing proximal ureteral stones. Moderate left-sided hydronephrosis was noted. Patient's creatinine is 3.8 on admission baseline unknown. WBC 15.9. Later during ED stay, patient developed atrial fibrillation for which she received IV metoprolol. DS: Diagnosis - Discharge Diagnosis (1) Hydronephrosis Status: Acute (2) Acute kidney injury Status: Acute (3) Renal calculi Status: Acute DS: Medications - Discharge Medications Prescriptions: apixaban [Eliquis] 5 mg PO BID 30 Days #60 tab levofloxacin 750 mg PO DAILY #7 tab loperamide 1 mg PO Q3H PRN #10 tab PRN Reason: Diarrhea magnesium oxide 400 mg PO DAILY 30 Days #30 tab metoprolol tartrate 100 mg PO BID 30 Days #60 tab metronidazole 500 mg PO TID 9 Days #27 tab nystatin 5 ml BUCCAL QID 7 Days #140 ml potassium chloride 20 meq PO DAILY 30 Days #30 tab DS: Summary Hospital Course: Patient presented with sepsis secondary to E. coli UTI, acute kidney injury with creatinine 3.8, uremic encephalopathy. CT abdomen showed bilateral hydronephrosis secondary to ureterolithiasis. Urology was consulted, however intervention was unable to be performed. With IV fluids, creatinine normalized , BUN down to normal. Encephalopathy resolved. Patient will need to follow-up with urologist as outpatient. Patient does have loose stools secondary to antibiotics. Stool found to be negative for C. difficile, as well as enteric pathogens. Patient does have colitis as seen on CT abdomen, and patient will be on antibiotics to complete treatment course for this. Other incidental findings on CT abdomen. Please see report. For problem based summary from most recent progress note, please see below. Ms. Mac is a 72-year-old female with a history of GERD, hyperlipidemia who presented to the emergency department due to nausea vomiting and diarrhea that started on 06/12/2018. ED evaluation indicated hydronephrosis on the left side as well as renal stone. Her creatinine is also elevated to 3.8. Baseline unknown. Patient also developed atrial fibrillation. //Sepsis (WBC 15.9K, Heart rate over 100, suspected infection - UTI). //Possible urinary tract infection //Nephrolithiasis //Left sided hydronephrosis - ED provider discussed with Urology (Dr. Lemon) who recommended patient to be transferred to the main hospital. - Continue Ceftriaxone 1g Qday. - IV fluid NS 100cc/hour. - Morphine 4mg IV Q4hrs PRN for pain. = 06/16 follow-up urine culture. Continue IV antibiotics. Urology following. Appreciate assistance. = 06/17. E. coli on urine culture. Resistant to ampicillin/sulbactam. Follow- up renal function. If she does not improve, will need intervention by urology. Appreciate urology assistance. = 06/18. E. coli sensitive to ceftriaxone. Will switch to ceftriaxone. Will need follow-up with urology as outpatient. = Continue on antibiotics for 10 day course. Stop date treatment on 06/26. will need follow-up with urology as outpatient. = 06/22. Have added metronidazole for possible colitis seen on CT. = Continue antibiotics to complete treatment course. //Acute kidney injury - Baseline unknown. Cr 3.8 today. - Avoid Nephrotoxins. Will check BMP in the AM. = 06/16. Repeat BMP with improved, however suspect lab error. Repeat pending. = 06/18. Renal function back to baseline, however electrolyte abnormalities. = 06/19. Continue bicarb for non-anion gap metabolic acidosis. = 06/20. Continue bicarb 1 more day. = 06/21. Follow-up labs tomorrow. Discontinue bicarb. = 06/22. Bicarb stable off of bicarb drip. Creatinine stable. //Non-anion gap metabolic acidosis Bicarb of 14. Will start bicarb and fluids. = 06/19. Bicarb improving to 17. Expect to resolve by tomorrow. = Resolved after replacement. Monitor off of bicarb. //Hypokalemia. = 06/16 potassium 2.9. Suspect lab error due to high sodium and chloride. Repeat check. Will replace minimally pending recheck. = 06/18. Hypokalemia has improved to 3.1. Will add to IV fluids. = 06/20. Potassium 3.4. Continue fluids with potassium. Continue to monitor. = 06/22. Potassium 3.0. Start daily replacement. //Hypophosphatemia. = Resolved after replacement //New onset Atrial fibrillation //Hypertension - Pt received Metoprolol IV. - If BP remains high, consider Amlodipine or Nifedipine. = Pending echocardiogram. Heart rate intermittently up into the 120s A. fib RVR. Will increase metoprolol. = Improved on increased metoprolol.. Heart rate still up to 110. Echocardiogram is equivocal. Will increase metoprolol and monitor. = We will check INR again as previously it was elevated 1.4. After INR is back we will decide on anticoagulations. = Heart rate continues in the 120s. Increase metoprolol. Echocardiogram very poor quality. Will consult cardiology for new onset atrial fibrillation. = Appreciate cardiology assistance. Continue on metoprolol. Start start Eliquis //Gastroenteritis //Colitis - No further N/V/D in the ED. If sample is collected, will check C. Diff PCR. = Patient continues with loose stools per discussion with nursing. Unable to get C. difficile sample however. Discussed with nursing again today, will try a rectal collection apparatus. -will add Flagyl for suspected colitis. As seen on CT for admission. C. difficile is negative = 06/22. Incontinent bowel movements. Likely secondary to antibiotics. C. difficile recently negative. No abdominal pain. Will check enteric pathogens, then can start Imodium = 06/23. No infectious pathogens on stool testing negative C. difficile during admission. Loose stools likely secondary to antibiotics, as well as sugar-free gum. //Full code. SCDs for now. Consider Heparin after Urological procedure. Discharge Planning: Patient's father, her primary caregiver last week. She will need SNF/rehab. Continue correcting electrolyte abnormalities. We will need follow-up with urology as outpatient for bilateral ureterolithiasis. =discharge to SNF today. - Time Spent with Patient Total time spent providing and/or coordinating discharge services: Greater than 30 minutes Exam Vital signs: Vital Signs 06/22/18 12:00 06/22/18 16:00 06/22/18 20:00 Temperature 97.9 F 97.2 F L 98 F Pulse Rate 85 89 89 Respiratory Rate 18 18 20 Blood Pressure 95/61 L 121/72 112/56 L Pulse Oximetry 97 95 93 L 06/23/18 00:00 06/23/18 04:00 06/23/18 08:00 Temperature 97.5 F L 97.8 F 98.7 F Pulse Rate 90 94 H 84 Respiratory Rate 20 20 16 Blood Pressure 127/67 128/75 112/60 Pulse Oximetry 93 L 95 94 L Intake & Output 06/22/18 06/23/18 06/23/18 18:59 06:59 18:59 Intake Total 300 / 300 680 / 680 Balance 300 / 300 680 / 680 Weight 110 kg Intake: IV 300 / 300 200 / 200 Magnesium Sulfate 1 gm/D5W 100 100 / 100 ml Premix 100 ML @ 100 mls/hr IV.SIG ONCE ONE Rx#:[id number] Flagyl 500 MG Inj 100 ML @ 100 200 / 200 200 / 200 mls/hr IV.SIG Q6H IR[facility] Rx#: [id number] Oral 480 / 480 Other: # Incontinent Voids 3 Date of Last Bowel Movement 06/23/18 # Bowel Movements 2 # Incontinent Bowel Movements 2 Results Procedures completed during hospitalization: No invasive procedures. - Impressions ITS Impressions Chest X-Ray 06/15/18 11:11 CONCLUSION: Basilar atelectasis and possible tiny right effusion versus scarring. Head CT 06/15/18 11:11 CONCLUSION: 1. No acute findings. . Abdomen/Pelvis CT 06/15/18 13:56 There are degenerative changes of the spine noted. Severe osteoarthritis of the right hip is present with a remote fracture deformity of the right femoral neck. No pleural or pericardial effusions are seen. Cholelithiasis is identified. Spleen, liver, pancreas, bilateral adrenal glands unremarkable. Small hiatal hernia. Right kidney demonstrates a nonobstructing stone at the upper pole measuring 3.8 mm. There are nonobstructing stones at the lower pole measuring up to 1.3 cm in transverse dimension. There is moderate right-sided hydronephrosis secondary to an obstructing calculus within the proximal ureter measuring 9.2 mm on axial image 43. There are 2 tiny calculi measuring 4.1 mm across at the lower pole of the left kidney and a 9 mm left proximal ureteral stone on image 45. There is moderate left-sided hydronephrosis. 3.69 m simple cyst left lower pole kidney. Urinary bladder and uterus are unremarkable. There is diverticulosis of the sigmoid colon with abnormal circumferential bowel wall thickening involving the sigmoid colon through the ascending colon with mild induration of the pericolonic fat concerning for colitis. The appendix is normal. There is a fat-containing umbilical hernia measuring 2.2 cm at the abdominal wall in transverse dimension, hernia sac measuring 6.6 cm in transverse dimension. Uterus and adnexa are unremarkable. CONCLUSION: 1. Bilateral renal calculi and obstructing proximal ureteral stones are noted. 2. Small hiatal hernia. 3. Abnormal colonic wall thickening is seen concerning for colitis. 4. Fat-containing umbilical hernia. 5. Cholelithiasis. Discharge Plan - Discharge Disposition Patient Disposition: Discharge to SNF - Discharge Condition Condition: Stable - Discharge Order Discharge Orders: Discharge Order (Routine); Ordered 06/22/18 Ordered By: Christoph Hunt - Discharge Details Anticipated Discharge Date: 06/22/18 - Physicians Team Primary Care Provider: Do Sarah Barreto Attending Provider: Christoph Hunt Other Providers: Gerard Jung MD ; Indy Hector MD ; [facility], [place] ; [facility]
[2018-06-23] MEDS: levoFLOXacin 750 MG Tablet PO SCH (10:12)
[2018-06-23] MEDS: Metoprolol Tartrate 100 MG Tablet PO SCH ×2 (10:13→21:27)
[2018-06-24] MEDS ORDERED: Loperamide 2 MG Capsule PO PRN (08:11)
[2018-06-24] MEDS ORDERED: Mag Sulf 1 gm/100 ml Premix 100 ML IV.SIG ONE (08:12)
[2018-06-24] MEDS: Metoprolol Tartrate 100 MG Tablet PO SCH (08:48)
[2018-06-24] MEDS: levoFLOXacin 750 MG Tablet PO SCH (08:48)
[2018-06-24 08:50] VITALS: RESP 16
[2018-06-24 10:48] LABS: Calcium 7.8 mg/dL (8.5-10.1); Carbon Dioxide 21.3 meq/L (21.0-32.0)
[2018-06-24 16:37] VITALS: BP 93/71; PULSE 115; TEMP 98.7; O2SAT 94
--- NOTE | 2018-06-24 17:07 | P.PNIM ---
Subjective Interval history: Doing very well. Feels like leaving the hospital. Physical Exam Vital signs: Vital Signs 06/23/18 20:00 06/24/18 00:00 06/24/18 04:00 Temperature 98.7 F 99.1 F 98 F Pulse Rate 113 H 90 95 H Respiratory Rate 19 17 17 Blood Pressure 127/77 106/57 L 100/54 L Pulse Oximetry 94 L 93 L 96 06/24/18 08:00 06/24/18 12:00 06/24/18 16:00 Temperature 98.5 F 98.5 F 98.7 F Pulse Rate 92 H 96 H 115 H Respiratory Rate 16 16 16 Blood Pressure 98/62 L 105/56 L 93/71 L Pulse Oximetry 95 95 94 L Intake & Output 06/23/18 06/24/18 06/24/18 18:59 06:59 18:59 Intake Total 820 / 820 860 / 860 200 / 200 Balance 820 / 820 860 / 860 200 / 200 Weight 106.8 kg Intake: IV 100 / 100 200 / 200 200 / 200 Magnesium Sulfate 1 gm/D5W 100 100 / 100 ml Premix 100 ML @ 100 mls/hr IV.SIG ONCE ONE Rx#:[id number] Flagyl 500 MG Inj 100 ML @ 100 100 / 100 200 / 200 100 / 100 mls/hr IV.SIG Q6H [place] Rx#: [id number] Oral 720 / 720 660 / 660 Other: # Voids 4 # Incontinent Voids 4 Date of Last Bowel Movement 06/23/18 06/23/18 06/24/18 # Bowel Movements 3 # Incontinent Bowel Movements 3 Narrative: GENERAL: Patient sitting up in bed. Appears comfortable. Alert, oriented 3. Exam unchanged. SKIN: Warm and dry. HEAD: Normocephalic. EYES: No scleral icterus. No injection or drainage. NECK: Supple, trachea midline. No JVD . CARDIOVASCULAR: Regular rate and rhythm without murmurs, gallops, or rubs. RESPIRATORY: Breath sounds equal bilaterally. No accessory muscle use. GASTROINTESTINAL: Abdomen soft, non-tender, nondistended. MUSCULOSKELETAL: No cyanosis, or edema. BACK: Nontender without obvious deformity. No CVA tenderness. Results - Labs CBC & Chem 7: 06/22/18 07:20 06/24/18 09:42 Laboratory Results - last 24 hr 06/24/18 09:42 Sodium 144 Potassium 3.0 L Chloride 110 H Carbon Dioxide 21.3 Anion Gap 13 BUN 11 Creatinine 0.77 Estimated GFR 74 L Random Glucose 89 Calcium 7.8 L - Procedures No invasive procedures. Assessment and Plan - Assessment (1) Hydronephrosis Code(s): N13.30 - Unspecified hydronephrosis Status: Acute (2) Acute kidney injury Code(s): N17.9 - Acute kidney failure, unspecified Status: Acute (3) Renal calculi Code(s): N20.0 - Calculus of kidney Status: Acute - Plan Ms. Mac is a 72-year-old female with a history of GERD, hyperlipidemia who presented to the emergency department due to nausea vomiting and diarrhea that started on 06/12/2018. ED evaluation indicated hydronephrosis on the left side as well as renal stone. Her creatinine is also elevated to 3.8. Baseline unknown. Patient also developed atrial fibrillation. //Sepsis (WBC 15.9K, Heart rate over 100, suspected infection - UTI). //Possible urinary tract infection //Nephrolithiasis //Left sided hydronephrosis - ED provider discussed with Urology (Dr. Lemon) who recommended patient to be transferred to the main hospital. - Continue Ceftriaxone 1g Qday. - IV fluid NS 100cc/hour. - Morphine 4mg IV Q4hrs PRN for pain. = 06/16 follow-up urine culture. Continue IV antibiotics. Urology following. Appreciate assistance. = 06/17. E. coli on urine culture. Resistant to ampicillin/sulbactam. Follow- up renal function. If she does not improve, will need intervention by urology. Appreciate urology assistance. = 06/18. E. coli sensitive to ceftriaxone. Will switch to ceftriaxone. Will need follow-up with urology as outpatient. = Continue on antibiotics for 10 day course. Stop date treatment on 06/26. will need follow-up with urology as outpatient. = 06/22. Have added metronidazole for possible colitis seen on CT. = Continue antibiotics to complete treatment course. //Acute kidney injury - Baseline unknown. Cr 3.8 today. - Avoid Nephrotoxins. Will check BMP in the AM. = 06/16. Repeat BMP with improved, however suspect lab error. Repeat pending. = 9/6. Renal function back to baseline, however electrolyte abnormalities. = 06/19. Continue bicarb for non-anion gap metabolic acidosis. = 06/20. Continue bicarb 1 more day. = 06/21. Follow-up labs tomorrow. Discontinue bicarb. = 06/22. Bicarb stable off of bicarb drip. Creatinine stable. //Non-anion gap metabolic acidosis Bicarb of 14. Will start bicarb and fluids. = 06/19. Bicarb improving to 17. Expect to resolve by tomorrow. = Resolved after replacement. Monitor off of bicarb. //Hypokalemia. = 06/16 potassium 2.9. Suspect lab error due to high sodium and chloride. Repeat check. Will replace minimally pending recheck. = 06/18. Hypokalemia has improved to 3.1. Will add to IV fluids. = 06/20. Potassium 3.4. Continue fluids with potassium. Continue to monitor. = 06/22. Potassium 3.0. Start daily replacement. //Hypophosphatemia. = Resolved after replacement //New onset Atrial fibrillation //Hypertension - Pt received Metoprolol IV. - If BP remains high, consider Amlodipine or Nifedipine. = Pending echocardiogram. Heart rate intermittently up into the 120s A. fib RVR. Will increase metoprolol. = Improved on increased metoprolol.. Heart rate still up to 110. Echocardiogram is equivocal. Will increase metoprolol and monitor. = We will check INR again as previously it was elevated 1.4. After INR is back we will decide on anticoagulations. = Heart rate continues in the 120s. Increase metoprolol. Echocardiogram very poor quality. Will consult cardiology for new onset atrial fibrillation. = Appreciate cardiology assistance. Continue on metoprolol. cont Eliquis //Gastroenteritis //Colitis //Antibiotic associated diarrhea. - No further N/V/D in the ED. If sample is collected, will check C. Diff PCR. = Patient continues with loose stools per discussion with nursing. Unable to get C. difficile sample however. Discussed with nursing again today, will try a rectal collection apparatus. -will add Flagyl for suspected colitis. As seen on CT for admission. C. difficile is negative = 06/22. Incontinent bowel movements. Likely secondary to antibiotics. C. difficile recently negative. No abdominal pain. Will check enteric pathogens, then can start Imodium = 06/23. No infectious pathogens on stool testing negative C. difficile during admission. Loose stools likely secondary to antibiotics, as well as sugar-free gum. = 06/24. Will start Imodium as diarrhea is noninfectious. Diarrhea secondary to antibiotics. //Full code. SCDs for now. Consider Heparin after Urological procedure. Discharge Planning: Patient's father, her primary caregiver last week. She will need SNF/rehab. Continue correcting electrolyte abnormalities. We will need follow-up with urology as outpatient for bilateral ureterolithiasis. =discharge to SNF today.
== END 2018-06-24 18:51 ==
LOC: PHED 10:57 → MERGE 15:41 → PHEDA 15:41 → N04 19:37
PROVIDERS: ADMIT Internal Medicine; ATTEND Internal Medicine

== ENCOUNTER 2018-07-16 21:59 | Inpatient (IN) ==
[2018-07-16 22:51] LABS: Baso # (Auto) 0.1 th/mm3 (0.0-0.2); Baso % (Auto) 0.8 % (0.0-2.0); Eos # (Auto) 0.1 th/mm3 (0.0-0.4); Hematocrit 21.5 % (35.0-46.0); Lymph # (Auto) 0.8 th/mm3 (1.0-4.8); Lymph % (Auto) 6.6 % (9.0-44.0); Mean Corpuscular HGB Conc 32.8 % (32.0-36.0); Mean Corpuscular Hemoglobin 28.7 pg (27.0-34.0); Mean Corpuscular Volume 87.5 fL (80.0-100.0); Mean Platelet Volume 7.9 fL (7.0-11.0); Mono # (Auto) 0.5 th/mm3 (0.0-0.9); Mono % (Auto) 3.9 % (0.0-8.0); Neut # (Auto) 10.6 th/mm3 (1.8-7.7); Neut % (Auto) 87.7 % (16.0-70.0); Platelet Count 531 th/mm3 (150-450); Red Blood Count 2.46 mil/mm3 (4.00-5.30); Red Cell Distribution Width 15.4 % (11.6-17.2); White Blood Count 12.1 th/mm3 (4.0-11.0)
--- NOTE | 2018-07-16 22:54 | ED ---
HPI General Chief complaint: Recheck/Abnormal Lab/Rx Stated complaint: abnormal labs Time Seen by Provider: 07/17/18 00:10 Source: patient, EMS and RN notes reviewed Mode of arrival: EMS Limitations: no limitations History of Present Illness HPI Narrative: 72-year-old female presents to the emergency department for noted decreasing hemoglobin. Patient was recently hospitalized 06/30/18 with acute kidney injury and GI bleed on Eliquis for history of atrial fibrillation. Patient refused endoscopy required transfusion improved and was discharged to [facility] and rehab facility. Earlier today blood work was performed and hemoglobin was identified to be 7.5 however this evening blood pressure was low and they repeated the hemoglobin and it was 6.5 patient was sent into the emergency room for anemia secondary to prior history of GI bleed with hypotension. Patient here states she is not sure why she came to the hospital other than she was told that her blood pressure had become low and that she might have to have a blood transfusion. Patient denies any headache dizziness shortness of breath chest pain palpitations abdominal pain and states she has been receiving Imodium but has not experienced diarrhea. Patient denies any known nausea vomiting hematemesis or coffee-ground emesis and denies any known bloody stools and was not told that she was having any blood in her stool. Patient voices no other concerns or complaints. Patient has history of acute renal failure UTI renal calculi hydronephrosis anemia second to GI blood loss with hypotension diverticulitis atrial fibrillation and Eliquis therapy last dose was this morning. MD complaint: Reports blood on toilet paper; Denies coffee ground emesis, gross hematemesis (Patient denies), melena (Patient denies) and gross hematochezia ( Patient denies) Onset (ago): hour(s) Pain Consistency: other (None per patient) Severity: moderate Relieving factors: other Exacerbating factors: none and other Context: Reports history of GI bleed and anticoagulant use (Eliquis for atrial fibrillation) Associated symptoms: Reports denies other symptoms and easy bruising; Denies abdominal pain, nausea, vomiting, epistaxis, fever, chills, headaches, loss of appetite, malaise, other bleeding, shortness of breath, syncope and weakness Treatments Prior to Arrival: Reports none Related Data Home Medications Medication Instructions Recorded Confirmed aspirin [Aspir-Low] 81 mg PO DAILY 06/15/18 07/16/18 cholecalciferol (vitamin D3) 2,000 unit PO DAILY 06/15/18 07/16/18 [Vitamin D3] omeprazole 20 mg PO DAILY 06/15/18 07/16/18 vit C,N-Ie-lpssv-lutein-zeaxan 1 tab PO BID 06/15/18 07/16/18 [PreserVision AREDS-2] Previous Rx's Medication Instructions Recorded magnesium oxide 400 mg PO DAILY 30 Days #30 tab 06/22/18 loperamide 1 mg PO Q3H PRN #10 tab 06/23/18 apixaban [Eliquis] 2.5 mg PO BID #60 tab 07/09/18 bumetanide 1 mg PO DAILY #5 tab 07/09/18 calcium carbonate [Oyster Shell 1,000 mg PO BID tab 07/09/18 Calcium 500] potassium chloride 20 meq PO DAILY 30 Days #30 tab 07/09/18 pravastatin 40 mg PO HS tab 07/09/18 metoprolol tartrate [Lopressor] 50 mg PO BID #60 tab 07/10/18 Allergies Allergy/AdvReac Type Severity Reaction Status Date / Time erythromycin base Allergy Diarrhea Verified 07/16/18 22:20 Review of Systems ROS: all other systems reviewed are negative PMFSH Social History Social History Substance History: No History of Abuse Second Hand Smoke Exposure: No Smoking Status: Never smoker How Often Do You Have a Drink Containing Alcohol: Never Recent Travel in [facility] within the Last 8 Weeks: No Recent Out of Country Travel within the Last 8 Weeks: No Immunization History Tetanus Immunization: Unsure Hx Influenza Vaccine This Season: Yes Exam Narrative Exam Narrative: GENERAL: Well-nourished, well-developed patient. No acute distress no respiratory distress SKIN: Focused skin assessment warm/dry. Pallor. HEAD: Normocephalic. EYES: No scleral icterus. No injection or drainage. NECK: Supple, trachea midline. No JVD or lymphadenopathy. CARDIOVASCULAR: Regular rate and rhythm without murmurs, gallops, or rubs. RESPIRATORY: Breath sounds equal bilaterally. No accessory muscle use. GASTROINTESTINAL: Abdomen soft, non-tender, nondistended. Rectal exam: Normal sphincter tone copious amount of brown green watery stool that is briskly Hemoccult positive is noted and specimen is collected. MUSCULOSKELETAL: No cyanosis, or edema. BACK: Nontender without obvious deformity. No CVA tenderness. Procedures Hemaprompt Stool Procedural Steps Taken: specimen placed in appropriate test area, developer placed on specimen and control areas and controls appropriately positive and negative Hemaprompt Stool Result: positive Course Initial Documented Vital Signs Temperature 98.4 F 07/16/18 22:20 Pulse Rate 96 H 07/16/18 22:20 Respiratory Rate 18 07/16/18 22:20 Blood Pressure 72/47 L 07/16/18 22:20 Pulse Oximetry 97 07/16/18 22:20 Last Documented Vital Signs Temperature 98.0 F 07/17/18 02:42 Pulse Rate 101 H 07/17/18 02:42 Respiratory Rate 16 07/17/18 02:42 Blood Pressure 122/54 L 07/17/18 02:42 Pulse Oximetry 87 L 07/17/18 02:42 Medical Decision Making MDM Narrative Medical decision making narrative: 72-year-old female presents to the emergency department with hypotension systolic pressure of 77 mmHg without tachycardia or tachypnea voicing no concerns or complaints identified by lab work from correction/rehab facility hemoglobin of 7.5 this morning with blood work in 6.5 this evening with blood work rectal exam is briskly Hemoccult positive when testing watery brown green stool. IV access obtained patient given bolus of normal saline Protonix infusion and bolus as well as ordered 4 units of packed cells to to be transfused now with GI consult once hemoglobin from here available. Patient will require admission and is informed of this. Patient denies other concerns or complaints. Patient was seen by Dr. Atkins for GI and Dr. Bonner for acute kidney injury and obstructive uropathy with renal calculi was managed by Dr. Yusuf. Patient's hemoglobin 7.0 feet and creatinine 31/1.60 bicarb 20.6 blood pressure after 500 cc normal saline systolic remains 72 mmHg 2 units packed RBC's ordered fr transfusion now and 2 units on hold Patient BP unchanged tolerating hypotension and hgb:7 well peripheral access 20g x 2 and 18g x 1 blood not yet available from [facility] --EMS here to transport to [facility] ICU has received additional 1 L NS; scientific publications editor aware blood not administered prior to transport Medical Screen Exam Complete: Yes Emergency Medical Condition: Yes Differential Diagnosis Differential Diagnosis: Upper GI bleed lower GI bleed colitis diverticulitis mesenteric ischemia pseudomembranous colitis UTI hemorrhagic shock acute kidney injury electrolyte disturbance anticoagulant-induced GI bleed Medical Records Medical records reviewed: Yes I reviewed the patient's medical records. Lab Data Result diagrams: 07/16/18 22:40 07/16/18 22:40 Lab Results 07/16/18 07/16/18 07/16/18 Range/Units 22:40 22:40 22:40 CBC w Diff Slide review pending WBC 12.1 H (4.0-11.0) th/mm3 RBC 2.46 L (4.00-5.30) mil/mm3 Hgb 7.0 L (11.6-15.3) gm/dL Hct 21.5 L (35.0-46.0) % MCV 87.5 (80.0-100.0) fL MCH 28.7 (27.0-34.0) pg MCHC 32.8 (32.0-36.0) % RDW 15.4 (11.6-17.2) % Plt Count 531 H D (150-450) th/mm3 MPV 7.9 (7.0-11.0) fL Neut % (Auto) 87.7 H (16.0-70.0) % Lymph % (Auto) 6.6 L (9.0-44.0) % [place] % (Auto) 3.9 (0.0-8.0) % Eos % (Auto) 1.0 (0.0-4.0) % Baso % (Auto) 0.8 (0.0-2.0) % Neut # (Auto) 10.6 H (1.8-7.7) th/mm3 Lymph # (Auto) 0.8 L (1.0-4.8) th/mm3 [place] # (Auto) 0.5 (0.0-0.9) th/mm3 Eos # (Auto) 0.1 (0.0-0.4) th/mm3 Baso # (Auto) 0.1 (0.0-0.2) th/mm3 WBC Differential Manual diff final Seg Neuts % (Manual) 46 (16-70) % Band Neuts % (Manual) 30 H (0-6) % Lymphocytes % (Manual) 4 L (9-44) % Monocytes % (Manual) 7 (0-8) % Eosinophils % (Manual) 2 (0-4) % Metamyelocytes % (Man) 11 H (0-1) % Abs Neuts (Manual) 10.5 H (1.8-7.7) th/mm3 Nucleated RBCs/100 WBC 1 H (0-0) /100 WBC Differential Comment . Toxic Vacuolation Present H (None) Platelet Estimate High H (Normal) Platelet Morphology Normal (Normal) Dimorphic RBCs Present H (None) PT (9.8-11.6) sec INR Ratio APTT (24.3-30.1) sec Sodium (136-145) meq/L Potassium (3.5-5.1) meq/L Chloride (98-107) meq/L Carbon Dioxide (21.0-32.0) meq/L Anion Gap (5-15) meq/L BUN (7-18) mg/dL Creatinine (0.50-1.00) mg/dL Estimated GFR (>89) mL/min Random Glucose (74-106) mg/dL Calcium (8.5-10.1) mg/dL Prot Corrected Calcium (8.5-10.1) mg/dL Magnesium 1.4 L (1.5-2.5) mg/dL Total Bilirubin (0.2-1.0) mg/dL AST (15-37) U/L ALT (10-53) U/L Alkaline Phosphatase (45-117) U/L Ammonia (11-32) mcmol/L Troponin I Less than 0.02 L (0.02-0.05) ng/mL Total Protein (6.4-8.2) g/dL Albumin (3.4-5.0) g/dL Lipase 47 L (73-393) U/L Blood Type A Negative Antibody Screen Negative MTS Gel Crossmatch See Detail 07/16/18 07/16/18 07/17/18 Range/Units 22:40 22:40 01:00 CBC w Diff WBC (4.0-11.0) th/mm3 RBC (4.00-5.30) mil/mm3 Hgb (11.6-15.3) gm/dL Hct (35.0-46.0) % MCV (80.0-100.0) fL MCH (27.0-34.0) pg MCHC (32.0-36.0) % RDW (11.6-17.2) % Plt Count (150-450) th/mm3 MPV (7.0-11.0) fL Neut % (Auto) (16.0-70.0) % Lymph % (Auto) (9.0-44.0) % [place] % (Auto) (0.0-8.0) % Eos % (Auto) (0.0-4.0) % Baso % (Auto) (0.0-2.0) % Neut # (Auto) (1.8-7.7) th/mm3 Lymph # (Auto) (1.0-4.8) th/mm3 [place] # (Auto) (0.0-0.9) th/mm3 Eos # (Auto) (0.0-0.4) th/mm3 Baso # (Auto) (0.0-0.2) th/mm3 WBC Differential Seg Neuts % (Manual) (16-70) % Band Neuts % (Manual) (0-6) % Lymphocytes % (Manual) (9-44) % Monocytes % (Manual) (0-8) % Eosinophils % (Manual) (0-4) % Metamyelocytes % (Man) (0-1) % Abs Neuts (Manual) (1.8-7.7) th/mm3 Nucleated RBCs/100 WBC (0-0) /100 WBC Differential Comment Toxic Vacuolation (None) Platelet Estimate (Normal) Platelet Morphology (Normal) Dimorphic RBCs (None) PT 19.2 H (9.8-11.6) sec INR 1.9 Ratio APTT 40.0 H (24.3-30.1) sec Sodium 140 (136-145) meq/L Potassium 3.9 (3.5-5.1) meq/L Chloride 110 H (98-107) meq/L Carbon Dioxide 20.6 L (21.0-32.0) meq/L Anion Gap 9 (5-15) meq/L BUN 31 H (7-18) mg/dL Creatinine 1.60 H (0.50-1.00) mg/dL Estimated GFR 32 L (>89) mL/min Random Glucose 108 H (74-106) mg/dL Calcium 6.8 L* (8.5-10.1) mg/dL Prot Corrected Calcium 8.1 L (8.5-10.1) mg/dL Magnesium (1.5-2.5) mg/dL Total Bilirubin 0.3 (0.2-1.0) mg/dL AST 30 (15-37) U/L ALT 11 (10-53) U/L Alkaline Phosphatase 96 (45-117) U/L Ammonia 11 (11-32) mcmol/L Troponin I (0.02-0.05) ng/mL Total Protein 4.7 L (6.4-8.2) g/dL Albumin 0.9 L (3.4-5.0) g/dL Lipase (73-393) U/L Blood Type Antibody Screen MTS Gel Crossmatch Imaging Data Radiologist's impression: Chest X-Ray 07/16/18 22:25 CONCLUSION: Cardiomegaly. No acute pulmonary disease. Discharge Plan Discharge Disposition Patient Disposition: 30 Still Patient Discharge Condition Condition: Fair Discharge Details Diagnosis: GI bleed, Acute renal failure (ARF), Acute blood loss anemia, Hypotension due to blood loss Physicians Team ED Provider: Gely Cunningham Primary Care Provider: Do Sarah Barreto Attending Provider: Eliana Ruiz Discharge Interventions Interventions: ED Discharge Assessment Last Done: 07/17/18 01:51 Status ED Status: Left Department Discharge Information Discharge Date/Time: 07/17/18 01:53
[2018-07-16] MEDS ORDERED: Sodium Chlor 0.9% Inj 500 ML IV.SIG SCH (23:00)
[2018-07-16 23:04] LABS: Potassium 3.9 meq/L (3.5-5.1)
[2018-07-16 23:13] LABS: Lipase 47 U/L (73-393); Magnesium 1.4 mg/dL (1.5-2.5)
[2018-07-16 23:20] LABS: Dimorphic RBC Present; Eosinophils 2 % (0-4); Lymphocytes 4 % (9-44); Metamyelocytes 11 % (0-1); Monocytes 7 % (0-8); Tallied Nucleated RBC 1 (0-0); Toxic Vacuolation Present
[2018-07-16 23:21] LABS: Platelet Morphology Normal (Normal)
[2018-07-16 23:24] LABS: Albumin 0.9 g/dL (3.4-5.0); Calcium 6.8 mg/dL (8.5-10.1); Carbon Dioxide 20.6 meq/L (21.0-32.0); Total Protein 4.7 g/dL (6.4-8.2)
[2018-07-16 23:33] LABS: INR 1.9 Ratio; Prothrombin Time 19.2 sec (9.8-11.6)
[2018-07-16] MEDS: Pantoprazole Inj 80 MG in Sodium Chlor 0.9% Inj 100 ML IV.CONT SCH (23:33)
--- NOTE | 2018-07-17 00:12 | XR ---
EXAM DATE: 07/16/2018 10:25 PM EDT AGE/SEX: 72 years / Female INDICATIONS: Shortness of breath. Not feeling well. Low blood pressure. CLINICAL DATA: This is the patient's initial encounter. Patient reports that signs and symptoms have been present for 1 day and indicates a pain score of 0/10. MEDICAL/SURGICAL HISTORY: . A-fib None. COMPARISON: [facility], CHEST 1V SINGLE AP, 06/15/2018. . FINDINGS: The cardiac silhouette is enlarged in transverse diameter. The lungs are free of acute parenchymal op acity. No effusions are identified. CONCLUSION: Cardiomegaly. No acute pulmonary disease. Electronically signed by: Amilcar Alanis MD 07/17/2018 12:10 AM EDT
[2018-07-17] MEDS ORDERED: Sod Chloride 0.9% Inj 1,000 ML IV.SIG SCH (01:15)
[2018-07-17] MEDS ORDERED: Chlorhexidine Gluconate 2% 1 Pack (2 Cloths) TOPICAL PRN (04:00)
[2018-07-17] MEDS ORDERED: Chlorhexidine Gluconate 2% 1 Pack (2 Cloths) TOPICAL SCH (04:00)
[2018-07-17] MEDS ORDERED: Mag Sulf 1 gm/100 ml Premix 100 ML IV.SIG ONE (04:40)
[2018-07-17] MEDS ORDERED: Potassium Chlor 40 mEq Premix 40 MEQ/100 ML PIGGYBACK IV.SIG PRN ×2 (04:43)
[2018-07-17] MEDS ORDERED: Sodium Phosphate Inj 30 MMOL in Sodium Chlor 0.9% Inj 250 ML IV.SIG PRN (04:43)
[2018-07-17] MEDS ORDERED: Magnesium Sulfate Inj 4 GM in Sodium Chlor 0.9% Inj 92 ML IV.SIG PRN (04:43)
[2018-07-17] MEDS ORDERED: Potassium Phosphate Inj 30 MMOL in Sodium Chlor 0.9% Inj 250 ML IV.SIG PRN (04:43)
[2018-07-17] MEDS ORDERED: Magnesium Sulfate Inj 2 GM in Sodium Chlor 0.9% Inj 96 ML IV.SIG PRN (04:43)
[2018-07-17] MEDS ORDERED: Potassium Phosphate 500 MG Soluble Tablet PO PRN ×2 (04:43)
--- NOTE | 2018-07-17 06:36 | P.HPCC ---
History of Present Illness Service: Critical Care Medicine Primary Care Physician: Do Sarah Barreto Chief Complaint: Hypotension, anemia History of Present Illness: 72-year-old female with past medical history of hypertension, hyperlipidemia, atrial fibrillation on chronic anti-coagulation with Eliquis. She recently was admitted to [facility] 06/30/18 with rectal bleeding. She required transfusion of 2 units packed red cells during that admission and subsequent hemoglobin trend was relatively stable.. CT abdomen and pelvis demonstrated diverticulitis versus colitis. She was treated with Levaquin and Flagyl. She was followed by gastroenterology who initially recommended endoscopy however after multiple discussions patient opted to defer on this and gastroenterology recommended follow-up endoscopy in 3-4 weeks as an outpatient. She also had obstructing right ureteral stone and underwent cystoscopy, lithotripsy and ureteral stent 07/06/[address] Amaya. She ultimately was discharged to [facility]. She had lab work that resulted today with hemoglobin of 7.5. She was hypotensive this afternoon with blood pressure in the 80s so repeat lab was drawn and hemoglobin was 6.5 so she was sent to [facility] for evaluation. There Dr. Cunningham did a rectal exam and states the stool was brown with Hemoccult positive. Her hemoglobin is 7.0. Her blood pressure is 80s over 50s with heart rate in the 90s. She has been on metoprolol. She has been back on Eliquis and her last dose was at 9 AM on 07/16/18. She has had ongoing loose stools ever since discharge, usually 1-2 loose stools on average daily, and she was not aware of any blood or melena. She states she has decreased appetite over the last 2-3 days. Denies nausea or vomiting. Although she denied abdominal pain she did have left lower quadrant tenderness on examination. She is afebrile. White blood cell count is 12 with left shift. She was transferred to [facility]. Although packed red cells were ordered, she did not receive any at [facility]. Transfusing 2 units packed red cells now. - Diagnosis (1) CKD (chronic kidney disease), stage III (2) Diverticulitis (3) GI bleed (4) Hypotension due to blood loss (5) Atrial fibrillation Inpatient Certification: I certify that the inpatient services were ordered in accordance with Medicare regulations governing the order. This includes certification that hospital inpatient services are reasonable and necessary and in the case of services not specified as inpatient-only under 42 CFR 419.22(n), that they are appropriately provided as inpatient services in accordance to with the 2-midnight benchmark under 43 CFR 412.3(e) 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, Medical Record - Medical History Medical History: Medical History (Last Updated 07/17/18 @ 07:24 by Eliana Ruiz MD) Atrial fibrillation CKD (chronic kidney disease) stage 3, GFR 30-59 ml/min GERD (gastroesophageal reflux disease) HLD (hyperlipidemia) HTN (hypertension) Obesity, morbid, BMI 40.0-49.9 Urinary tract obstruction by kidney stone - Surgical History Surgical History: Surgical History (Last Updated 07/17/18 @ 07:24 by Eliana Ruiz MD) History of lithotripsy History of ureter stent Hx of cystoscopy - Family History Family History: Family History (Last Updated 07/17/18 @ 07:24 by Eliana Ruiz MD) Other No significant family history - Tobacco History Second Hand Smoke Exposure: No Smoking Status: Never smoker - Alcohol History How Often Do You Have a Drink Containing Alcohol: Never - Substance Use History Substance History: No History of Abuse - Travel History Recent Travel in the [place] Within the Last 8 Weeks: No Recent Travel Out of the Country Within the Last 8 Weeks: No - Immunization History Tetanus Immunization: Unsure Hx Influenza Vaccine This Season: Yes Medications and Allergies Active Medications: Active Medications Chlorhexidine Gluconate (Chlorhexidine 2% Cloth) 3 pack TOPICAL DAILY@0400 IRVING Stop: 07/22/18 03:59 Last Admin: 07/17/18 05:31 Dose: 3 pack Chlorhexidine Gluconate (Chlorhexidine 2% Cloth) 3 pack TOPICAL DAILY@0400 PRN PRN Reason: Extra cloth needed Stop: 07/22/18 03:59 Pantoprazole Sodium 80 mg/ (Sodium Chloride) 100 mls @ 10 mls/hr IV.CONT CONT IRVING Last Infusion: 07/17/18 02:58 Dose: 0 mls/hr Sodium Chloride (Ns Inj) 500 mls @ 0 mls/hr IV.SIG BOLUS IRVING Last Infusion: 07/17/18 00:20 Dose: Infused Sodium Chloride (Ns Inj) 1,000 mls @ 0 mls/hr IV.SIG BOLUS IRVING Metronidazole/Sodium Chloride (Flagyl 500 Mg Inj) 100 mls @ 100 mls/hr IV.SIG Q8H IRVING Last Admin: 07/17/18 05:55 Dose: 100 mls/hr Magnesium Sulfate 4 gm/ Sodium (Chloride) 100 mls @ 50 mls/hr IV.SIG UNSCH PRN PRN Reason: For Magnesium 0.9 - 1.1 mg/dL Magnesium Sulfate 2 gm/ Sodium (Chloride) 100 mls @ 50 mls/hr IV.SIG UNSCH PRN PRN Reason: For Magnesium 1.2 - 1.6 mg/dL Potassium Chloride (Kcl 40 Meq Premix Inj) 40 meq in 100 mls @ 25 mls/hr IV.SIG Q2H PRN PRN Reason: For Potassium 2.8 - 3.2 mEq/L Potassium Chloride (Kcl 20 Meq Premix Inj) 20 meq in 100 mls @ 50 mls/hr IV.SIG Q2H PRN PRN Reason: For Potassium 3.3 - 3.5 mEq/L Potassium Chloride (Kcl 40 Meq Premix Inj) 40 meq in 100 mls @ 25 mls/hr IV.SIG UNSCH PRN PRN Reason: For Potassium 3.3 - 3.5 mEq/L Potassium Phosphate 30 mmol/ (Sodium Chloride) 260 mls @ 42 mls/hr IV.SIG UNSCH PRN PRN Reason: SEE LABEL COMMENTS Sodium Phosphate 30 mmol/ (Sodium Chloride) 260 mls @ 42 mls/hr IV.SIG UNSCH PRN PRN Reason: For Phosphorus < 2.5 mg/dL Potassium Chloride (Kcl 20 Meq Premix Inj) 20 meq in 100 mls @ 50 mls/hr IV.SIG Q2H PRN PRN Reason: For Potassium 2.8 - 3.2 mEq/L Magnesium Oxide (Mag-Ox) 800 mg PO UNSCH PRN PRN Reason: For Magnesium 1.2 - 1.6 mg/dL Potassium Bicarb/Potassium Chloride (K-Lyte Cl Eff) 50 meq PO UNSCH PRN PRN Reason: For Potassium 3.3 - 3.5 mEq/L Potassium Phosphate (K-Phos Original) 2,000 mg PO Q4H PRN PRN Reason: Phosphorus Less Than 2.5 mg/dL Potassium Phosphate (K-Phos Original) 2,000 mg PO UNSCH PRN PRN Reason: SEE LABEL COMMENTS Sodium Chloride (Ns Flush) 2 ml IV.FLUSH PRN PRN PRN Reason: FLUSH AFTER USING IV ACCESS Allergies Allergy/AdvReac Type Severity Reaction Status Date / Time erythromycin base Allergy Diarrhea Verified 07/16/18 22:20 Home Medications Medication Instructions Recorded Confirmed Type aspirin [Aspir-Low] 81 mg PO DAILY 06/15/18 07/16/18 History cholecalciferol (vitamin D3) 2,000 unit PO DAILY 06/15/18 07/16/18 History [Vitamin D3] omeprazole 20 mg PO DAILY 06/15/18 07/16/18 History vit C,A-So-secgo-lutein-zeaxan 1 tab PO BID 06/15/18 07/16/18 History [PreserVision AREDS-2] Results - Labs CBC & Chem 7: 07/16/18 22:40 07/16/18 22:40 Labs: Short CBC 07/16/18 Range/Units 22:40 WBC 12.1 H (4.0-11.0) th/mm3 Hgb 7.0 L (11.6-15.3) gm/dL Hct 21.5 L (35.0-46.0) % Plt Count 531 H D (150-450) th/mm3 BMP 07/16/18 22:40 Sodium 140 Potassium 3.9 Chloride 110 H Carbon Dioxide 20.6 L BUN 31 H Creatinine 1.60 H Calcium 6.8 L* Cardiac Enzymes 07/16/18 Range/Units 22:40 Troponin I Less than 0.02 L (0.02-0.05) ng/mL Liver Function 07/16/18 Range/Units 22:40 Total Bilirubin 0.3 (0.2-1.0) mg/dL AST 30 (15-37) U/L ALT 11 (10-53) U/L Alkaline Phosphatase 96 (45-117) U/L Albumin 0.9 L (3.4-5.0) g/dL - Imaging Impressions Chest X-Ray 07/16/18 22:25 CONCLUSION: Cardiomegaly. No acute pulmonary disease. Exam Vital signs: Vital Signs 07/16/18 22:20 07/16/18 22:38 07/16/18 23:30 Temperature 98.4 F Pulse Rate 96 H 96 H Respiratory Rate 18 18 Blood Pressure 72/47 L 74/43 L Pulse Oximetry 97 96 96 07/17/18 00:22 07/17/18 01:23 07/17/18 02:42 Temperature 98.0 F Pulse Rate 94 H 72 101 H Respiratory Rate 18 18 16 Blood Pressure 72/43 L 78/50 L 122/54 L Pulse Oximetry 96 97 87 L 07/17/18 02:58 07/17/18 03:27 07/17/18 04:00 Temperature 97.7 F 98.3 F Pulse Rate 97 H 95 H 93 H Respiratory Rate 16 17 19 Blood Pressure 83/50 L 88/52 L Pulse Oximetry 97 98 07/17/18 04:35 Temperature 97.7 F Pulse Rate 98 H Respiratory Rate 16 Blood Pressure 88/52 L Pulse Oximetry Intake & Output 07/16/18 07/16/18 07/17/18 06:59 18:59 06:59 Intake Total 900 / 900 Balance 900 / 900 Weight 108 kg Intake: IV 500 / 500 NS Inj 500 ML @ Wide Open IV. 500 / 500 SIG BOLUS IRVING Rx#:[id number] Intake (Blood Product) Amt 400 / 400 Rbc As-3 Leukoreduced Unit 0 / 0 [id number] Rbc As-3 Leukoreduced Unit 400 / 400 [id number] Other: Weight On Admission 108 kg Narrative: GENERAL: Chronically ill-appearing female, alert and interactive, generally weak. SKIN: Warm and dry. HEAD: Atraumatic. Normocephalic. EYES: Pupils equal and round. No scleral icterus. No injection or drainage. ENT: No nasal bleeding or discharge. Mucous membranes dry NECK: Trachea midline. No JVD. CARDIOVASCULAR: Irregularly irregular.. No murmurs rubs or gallops. RESPIRATORY: No accessory muscle use. Clear to auscultation. Breath sounds equal bilaterally. On room air GASTROINTESTINAL: Abdomen obese, soft, tender to palpation left lower quadrant. No rebound or guarding. MUSCULOSKELETAL: Extremities without clubbing, cyanosis. Trace to 1+ pedal edema. NEUROLOGICAL: Awake and alert. No obvious cranial nerve deficits. Normal speech. Generalized weakness without apparent focal deficit. Septic Shock Reassessment Septic shock perfusion: reassessment completed Caprini VTE Risk Assessment Caprini VTE Risk Assessment: Moderate/High Risk (score >= 2) VTE Pharmacological Exception Reason: Hemorrhage, Coagulopathy,INR elevated Caprini Risk Assessment Model: Point Value = 1 Point Value = 2 Point Value = 3 Point Value = 5 Age 41-60 Minor surgery BMI > 25 kg/m2 Swollen legs Varicose veins or History of unexplained or recurrent spontaneous Oral contraceptives or hormone replacement Sepsis (< 1 month) Serious lung disease, including pneumonia (< 1 month) Abnormal pulmonary function Acute myocardial infarction Congestive heart failure (< 1 month) History of inflammatory bowel disease Medical patient at bed rest Age 61-74 Arthroscopic surgery Major open surgery (> 45 min) Laparoscopic surgery (> 45 min) Malignancy Confined to bed (> 72 hours) Immobilizing plaster cast Central venous access Age >= 75 History of VTE Family history of VTE Factor V Leiden Prothrombin [id number] Lupus anticoagulant Anticardiolipin antibodies Elevated serum homocysteine Heparin-induced thrombocytopenia Other congenital or acquired thrombophilia Stroke (< 1 month) Elective arthroplasty Hip, pelvis, or leg fracture Acute spinal cord injury (< 1 month) Prophylaxis Regimen: Total Risk Factor Score Risk Level Prophylaxis Regimen 0-1 Low Early ambulation 2 Moderate Order ONE of the following: *Sequential Compression Device (SCD) *Heparin 5000 units SQ BID 3-4 Higher Order ONE of the following medications: *Heparin 5000 units SQ TID *Enoxaparin/Lovenox 40 mg SQ daily (WT < 150 kg, CrCl > 30 mL/min) *Enoxaparin/Lovenox 30 mg SQ daily (WT < 150 kg, CrCl > 10-29 mL/min) *Enoxaparin/Lovenox 30 mg SQ BID (WT < 150 kg, CrCl > 30 mL/min) AND/OR *Sequential Compression Device (SCD) 5 or more Highest Order ONE of the following medications: *Heparin 5000 units SQ TID (Preferred with Epidurals) *Enoxaparin/Lovenox 40 mg SQ daily (WT < 150 kg, CrCl > 30 mL/min) *Enoxaparin/Lovenox 30 mg SQ daily (WT < 150 kg, CrCl > 10-29 mL/min) *Enoxaparin/Lovenox 30 mg SQ BID (WT < 150 kg, CrCl > 30 mL/min) AND *Sequential Compression Device (SCD) Assessment and Plan - Problem List (1) CKD (chronic kidney disease), stage III Code(s): N18.3 - Chronic kidney disease, stage 3 (moderate) Status: Acute (2) Diverticulitis Code(s): K57.92 - Diverticulitis of intestine, part unspecified, without perforation or abscess without bleeding Status: Acute (3) GI bleed Code(s): K92.2 - Gastrointestinal hemorrhage, unspecified Status: Acute (4) Hypotension due to blood loss Code(s): I95.89 - Other hypotension Status: Acute (5) Atrial fibrillation Code(s): I48.91 - Unspecified atrial fibrillation Status: Acute - Assessment and Plan Plan: NEURO: Lortab as needed for pain. Morphine as needed for breakthrough pain. Generalized weakness PT consult RESP: RA. IS q 1hour CV: Hypotension secondary to symptomatic anemia Essential hypertension Hold aspirin 81 mg p.o. daily. Hold Eliquis 2.5 mg p.o. twice daily. Hold metoprolol 100 mg p.o. every 12 hours (last dose was 07/16 at 09:00) Hold Bumex 1 mg p.o. daily Transfuse as per below Jose Antonio-Synephrine titrate to maintain mean arterial pressure greater than 65 Troponin negative. GI/HEME: Acute diverticulitis Her clinical symptoms are suggestive of acute diverticulitis with left lower quadrant tenderness and leukocytosis. Previous CT 06/[address] to evaluate for abscess or other complication of diverticulitis. F/u C diff Abx as per below Protonix 40 mg IV q12. Anemia and Heme + stools Transfuse 2 units PRBC, follow Hgb q6 hours. GI consult Coagulopathy Hold Eliquis, last dose 07/16 9 am. INR 1.9. Give Vitamin K 10 mg subcut, 2 units FFP. F/u coags and hgb, consider Kcentra if ongoing evidence of bleeding and coagulopathy however holding off as she clinically does not appear to have active hemorrhage. FEN/RENAL: RUDY overlying CKD stage III Monitor intake and output. Monitor creatinine. Monitor electrolytes and replace as indicated ID: Acute diverticulitis as per above. Follow-up CT abdomen. Send 2 sets of blood cultures. Follow-up C. difficile. Ceftriaxone 1 g IV every 24 hours, Flagyl 500 mg IV every 8 hours. ENDO: Euglycemic PROPH: SCDs for DVT prophylaxis. No pharmacologic DVT prophylaxis at this time due to bleeding. Protonix as per above. ACCESS: Multiple peripheral IVs providing adequate access at this time. Patient is critically ill with symptomatic anemia and hypotension requiring transfusion, correction of coagulopathy, vasopressor. She is at high risk for further deterioration. Will remain in [facility]MC. Critical care time 50 minutes exclusive of separately billable procedures H&P: Quality - VTE Deep Vein Thrombosis/Pulmonary Embolism Present on Admission: No
[2018-07-17] MEDS ORDERED: Phenylephrine Inj 40 MG in Dextrose 5% in Water Inj 496 ML IV.CONT PRN ×2 (06:37)
[2018-07-17] MEDS ORDERED: Morphine Sulfate Inj 2 MG/ML Vial IV.PUSH PRN (06:38)
[2018-07-17] MEDS ORDERED: Sodium Chlor 0.9% Inj 250 ML IV.SIG SCH (07:00)
[2018-07-17] MEDS: Sod Chloride 0.9% Inj 1,000 ML IV.CONT SCH (08:00)
[2018-07-17] MEDS: Pantoprazole Inj 40 MG Vial IV.PUSH SCH ×2 (08:24→20:05)
[2018-07-17 11:26] LABS: Baso % (Auto) 0.1 % (0.0-2.0); Eos # (Auto) 0.2 th/mm3 (0.0-0.4); Eos % (Auto) 1.4 % (0.0-4.0); Hematocrit 32.8 % (35.0-46.0); Hemoglobin 10.9 gm/dL (11.6-15.3); Lymph # (Auto) 0.4 th/mm3 (1.0-4.8); Lymph % (Auto) 2.9 % (9.0-44.0); Mean Corpuscular HGB Conc 33.2 % (32.0-36.0); Mean Corpuscular Volume 87.4 fL (80.0-100.0); Mean Platelet Volume 7.3 fL (7.0-11.0); Mono # (Auto) 0.3 th/mm3 (0.0-0.9); Neut # (Auto) 12.8 th/mm3 (1.8-7.7); Neut % (Auto) 93.6 % (16.0-70.0); Platelet Count 533 th/mm3 (150-450); Red Blood Count 3.75 mil/mm3 (4.00-5.30); Red Cell Distribution Width 15.8 % (11.6-17.2); White Blood Count 13.7 th/mm3 (4.0-11.0)
[2018-07-17 11:45] LABS: Calcium 6.9 mg/dL (8.5-10.1); Carbon Dioxide 20.1 meq/L (21.0-32.0); Magnesium 1.8 mg/dL (1.5-2.5); Phosphorus 4.8 mg/dL (2.5-4.9); Potassium 3.8 meq/L (3.5-5.1); Total Protein 5.3 g/dL (6.4-8.2)
[2018-07-17 11:46] LABS: INR 1.7 Ratio; Prothrombin Time 17.3 sec (9.8-11.6)
--- NOTE | 2018-07-17 11:55 | P.CONGI ---
History of Present Illness Consult date: 07/17/18 Consult reason: Diverticulitis with GI bleed Chief complaint: Hypotensive Anemic GI Bleed w/ Eliquis; RUDY History of Present Illness: This is an obese 72-year-old female who was just discharged from the hospital on 07/11/2018 and seen per gastroenterology. patient also had obstructing ureteral stone and underwent cystoscopy and was set up for lithotripsy as an outpatient after discharge. Patient also was treated for diverticulitis per CT scan last admission and treated with Levaquin and Flagyl during her hospital stay patient was refusing to have any GI procedures including EGD or colonoscopy. Patient has never had either test done before and still is stating no EGD or colonoscopy to be done. Patient's currently being monitored in the intensive care setting with hypotension, current BP 91/54, tachycardia heart rate 102 and does appear weak, fatigued, and pale. Current hemoglobin is 7, PT/INR 1.9, bilirubin LFTs are normal, magnesium did decreased at 1.4, lipase 47, ammonia 11. Patient is a poor historian and is unaware if she has had any melena stools but does note chronic diarrhea at home unknown number of stools daily, 1-2 noted on the record. According to the record Hemoccult was positive in the emergency room and stool was brown. Currently patient denies any type of abdominal pain no nausea no vomiting but does note some decreased appetite. Gastroenterology was consulted to assist in her symptom management and plan of care but it is noted that patient is refusing EGD or colonoscopy last admission as well as this admission. <Renetta Michel - Last Filed: 07/17/18 11:55> [facility] - History History Provided By: Patient, Medical Record - Medical History Medical History: Medical History (Last Reviewed 07/17/18 @ 07:54 by Nasim Morris) Atrial fibrillation CKD (chronic kidney disease) stage 3, GFR 30-59 ml/min GERD (gastroesophageal reflux disease) HLD (hyperlipidemia) HTN (hypertension) Obesity, morbid, BMI 40.0-49.9 Urinary tract obstruction by kidney stone - Surgical History Surgical History: Surgical History (Last Reviewed 07/17/18 @ 07:54 by Nasim Morris) History of lithotripsy History of ureter stent Hx of cystoscopy - Family History Family History: Family History (Last Updated 07/17/18 @ 07:24 by Eliana Ruiz MD) Other No significant family history - Tobacco History Second Hand Smoke Exposure: No Smoking Status: Never smoker - Alcohol History How Often Do You Have a Drink Containing Alcohol: Never - Substance Use History Substance History: No History of Abuse - Travel History Recent Travel in the [place] Within the Last 8 Weeks: No Recent Travel Out of the Country Within the Last 8 Weeks: No - Immunization History Tetanus Immunization: Unsure Hx Influenza Vaccine This Season: Yes <Renetta Michel - Last Filed: 07/17/18 11:55> - Medical History Medical History: Medical History (Last Reviewed 07/17/18 @ 07:54 by Nasim Morris) Atrial fibrillation CKD (chronic kidney disease) stage 3, GFR 30-59 ml/min GERD (gastroesophageal reflux disease) HLD (hyperlipidemia) HTN (hypertension) Obesity, morbid, BMI 40.0-49.9 Urinary tract obstruction by kidney stone - Surgical History Surgical History: Surgical History (Last Reviewed 07/17/18 @ 07:54 by Nasim Morris) History of lithotripsy History of ureter stent Hx of cystoscopy - Family History Family History: Family History (Last Updated 07/17/18 @ 07:24 by Eliana Ruiz MD) Other No significant family history <Tony Atkins - Last Filed: 07/17/18 16:56> Medications and Allergies Active Medications: Active Medications Hydrocodone Bitart/Acetaminophen ([place] 5/325) 1 tab PO Q4H PRN PRN Reason: PAIN SCALE 1 TO 5 Albuterol (Albuterol Neb (Prn)) 2.5 mg NEB Q2HR NEB PRN PRN Reason: SHORTNESS OF BREATH/WHEEZING Chlorhexidine Gluconate (Chlorhexidine 2% Cloth) 3 pack TOPICAL DAILY@0400 [facility] Stop: 07/22/18 03:59 Last Admin: 07/17/18 05:31 Dose: 3 pack Chlorhexidine Gluconate (Chlorhexidine 2% Cloth) 3 pack TOPICAL DAILY@0400 PRN PRN Reason: Extra cloth needed Stop: 07/22/18 03:59 Chlorhexidine Gluconate (Chlorhexidine 2% Cloth) 3 pack TOPICAL DAILY@0400 [facility] Stop: 07/23/18 03:59 Chlorhexidine Gluconate (Chlorhexidine 2% Cloth) 3 pack TOPICAL DAILY@0400 PRN PRN Reason: Extra cloth needed Stop: 07/23/18 03:59 Pantoprazole Sodium 80 mg/ (Sodium Chloride) 100 mls @ 10 mls/hr IV.CONT CONT [facility] Last Infusion: 07/17/18 02:58 Dose: 0 mls/hr Sodium Chloride (Ns Inj) 500 mls @ 0 mls/hr IV.SIG BOLUS [place] Last Infusion: 07/17/18 00:20 Dose: Infused Sodium Chloride (Ns Inj) 1,000 mls @ 0 mls/hr IV.SIG BOLUS [place] Metronidazole/Sodium Chloride (Flagyl 500 Mg Inj) 100 mls @ 100 mls/hr IV.SIG Q8H [facility] Last Infusion: 07/17/18 09:23 Dose: Infused Magnesium Sulfate 4 gm/ Sodium (Chloride) 100 mls @ 50 mls/hr IV.SIG UNSCH PRN PRN Reason: For Magnesium 0.9 - 1.1 mg/dL Magnesium Sulfate 2 gm/ Sodium (Chloride) 100 mls @ 50 mls/hr IV.SIG UNSCH PRN PRN Reason: For Magnesium 1.2 - 1.6 mg/dL Potassium Chloride (Kcl 40 Meq Premix Inj) 40 meq in 100 mls @ 25 mls/hr IV.SIG Q2H PRN PRN Reason: For Potassium 2.8 - 3.2 mEq/L Potassium Chloride (Kcl 20 Meq Premix Inj) 20 meq in 100 mls @ 50 mls/hr IV.SIG Q2H PRN PRN Reason: For Potassium 3.3 - 3.5 mEq/L Potassium Chloride (Kcl 40 Meq Premix Inj) 40 meq in 100 mls @ 25 mls/hr IV.SIG UNSCH PRN PRN Reason: For Potassium 3.3 - 3.5 mEq/L Potassium Phosphate 30 mmol/ (Sodium Chloride) 260 mls @ 42 mls/hr IV.SIG UNSCH PRN PRN Reason: SEE LABEL COMMENTS Sodium Phosphate 30 mmol/ (Sodium Chloride) 260 mls @ 42 mls/hr IV.SIG UNSCH PRN PRN Reason: For Phosphorus < 2.5 mg/dL Potassium Chloride (Kcl 20 Meq Premix Inj) 20 meq in 100 mls @ 50 mls/hr IV.SIG Q2H PRN PRN Reason: For Potassium 2.8 - 3.2 mEq/L Phenylephrine HCl 40 mg/ (Dextrose) 500 mls @ 30 mls/hr IV.CONT TITRATE PRN; Protocol PRN Reason: Per Protocol Ceftriaxone Sodium 1,000 mg/ (Sodium Chloride) 100 mls @ 200 mls/hr IV.SIG Q24H [facility] Last Infusion: 07/17/18 09:00 Dose: Infused Sodium Chloride (Ns Inj) 1,000 mls @ 70 mls/hr IV.CONT .[id number] [facility] Last Admin: 07/17/18 08:00 Dose: 70 mls/hr Sodium Chloride (Ns Inj) 250 mls @ 15 mls/hr IV.SIG ONCE [facility] Stop: 07/17/18 23:39 Magnesium Oxide (Mag-Ox) 800 mg PO UNSCH PRN PRN Reason: For Magnesium 1.2 - 1.6 mg/dL Morphine Sulfate (Morphine Inj) 2 mg IV.PUSH Q2H PRN PRN Reason: PAIN SCALE 6 TO 10 Ondansetron HCl (Zofran Inj) 4 mg IV.PUSH Q6H PRN PRN Reason: NAUSEA OR VOMITING Pantoprazole Sodium (Protonix Inj) 40 mg IV.PUSH Q12H [facility] Last Admin: 07/17/18 08:24 Dose: Not Given Potassium Bicarb/Potassium Chloride (K-Lyte Cl Eff) 50 meq PO UNSCH PRN PRN Reason: For Potassium 3.3 - 3.5 mEq/L Potassium Phosphate (K-Phos Original) 2,000 mg PO Q4H PRN PRN Reason: Phosphorus Less Than 2.5 mg/dL Potassium Phosphate (K-Phos Original) 2,000 mg PO UNSCH PRN PRN Reason: SEE LABEL COMMENTS Sodium Chloride (Ns Flush) 2 ml IV.FLUSH BID [facility] Last Admin: 07/17/18 08:23 Dose: 2 ml Sodium Chloride (Ns Flush) 2 ml IV.FLUSH PRN PRN PRN Reason: FLUSH AFTER USING IV ACCESS Terbutaline Sulfate (Brethine Inj) 1 mg SQ UNSCH PRN PRN Reason: For Extravasation <Renetta Michel - Last Filed: 07/17/18 11:55> Active Medications: Active Medications Hydrocodone Bitart/Acetaminophen ([place] 5/325) 1 tab PO Q4H PRN PRN Reason: PAIN SCALE 1 TO 5 Albuterol (Albuterol Neb (Prn)) 2.5 mg NEB Q2HR NEB PRN PRN Reason: SHORTNESS OF BREATH/WHEEZING Chlorhexidine Gluconate (Chlorhexidine 2% Cloth) 3 pack TOPICAL DAILY@0400 [facility] Stop: 07/22/18 03:59 Last Admin: 07/17/18 05:31 Dose: 3 pack Chlorhexidine Gluconate (Chlorhexidine 2% Cloth) 3 pack TOPICAL DAILY@0400 PRN PRN Reason: Extra cloth needed Stop: 07/22/18 03:59 Chlorhexidine Gluconate (Chlorhexidine 2% Cloth) 3 pack TOPICAL DAILY@0400 [facility] Stop: 07/23/18 03:59 Chlorhexidine Gluconate (Chlorhexidine 2% Cloth) 3 pack TOPICAL DAILY@0400 PRN PRN Reason: Extra cloth needed Stop: 07/23/18 03:59 Pantoprazole Sodium 80 mg/ (Sodium Chloride) 100 mls @ 10 mls/hr IV.CONT CONT [place] Last Admin: 07/17/18 14:48 Dose: 10 mls/hr Sodium Chloride (Ns Inj) 500 mls @ 0 mls/hr IV.SIG BOLUS [facility] Last Infusion: 07/17/18 00:20 Dose: Infused Sodium Chloride (Ns Inj) 1,000 mls @ 0 mls/hr IV.SIG BOLUS [place] Magnesium Sulfate 4 gm/ Sodium (Chloride) 100 mls @ 50 mls/hr IV.SIG UNSCH PRN PRN Reason: For Magnesium 0.9 - 1.1 mg/dL Magnesium Sulfate 2 gm/ Sodium (Chloride) 100 mls @ 50 mls/hr IV.SIG UNSCH PRN PRN Reason: For Magnesium 1.2 - 1.6 mg/dL Potassium Chloride (Kcl 40 Meq Premix Inj) 40 meq in 100 mls @ 25 mls/hr IV.SIG Q2H PRN PRN Reason: For Potassium 2.8 - 3.2 mEq/L Potassium Chloride (Kcl 20 Meq Premix Inj) 20 meq in 100 mls @ 50 mls/hr IV.SIG Q2H PRN PRN Reason: For Potassium 3.3 - 3.5 mEq/L Potassium Chloride (Kcl 40 Meq Premix Inj) 40 meq in 100 mls @ 25 mls/hr IV.SIG UNSCH PRN PRN Reason: For Potassium 3.3 - 3.5 mEq/L Potassium Phosphate 30 mmol/ (Sodium Chloride) 260 mls @ 42 mls/hr IV.SIG UNSCH PRN PRN Reason: SEE LABEL COMMENTS Sodium Phosphate 30 mmol/ (Sodium Chloride) 260 mls @ 42 mls/hr IV.SIG UNSCH PRN PRN Reason: For Phosphorus < 2.5 mg/dL Potassium Chloride (Kcl 20 Meq Premix Inj) 20 meq in 100 mls @ 50 mls/hr IV.SIG Q2H PRN PRN Reason: For Potassium 2.8 - 3.2 mEq/L Phenylephrine HCl 40 mg/ (Dextrose) 500 mls @ 30 mls/hr IV.CONT TITRATE PRN; Protocol PRN Reason: Per Protocol Sodium Chloride (Ns Inj) 1,000 mls @ 70 mls/hr IV.CONT .[id number] [facility] Last Admin: 07/17/18 08:00 Dose: 70 mls/hr Sodium Chloride (Ns Inj) 250 mls @ 15 mls/hr IV.SIG ONCE [facility] Stop: 07/17/18 23:39 Last Admin: 07/17/18 10:50 Dose: 15 mls/hr Piperacillin/Tazobactam/Dextrose (Zosyn 3.375 Gm Premix) 50 mls @ 100 mls/hr IV.SIG Q6H [facility] Last Admin: 07/17/18 16:05 Dose: 100 mls/hr Magnesium Oxide (Mag-Ox) 800 mg PO UNSCH PRN PRN Reason: For Magnesium 1.2 - 1.6 mg/dL Morphine Sulfate (Morphine Inj) 2 mg IV.PUSH Q2H PRN PRN Reason: PAIN SCALE 6 TO 10 Ondansetron HCl (Zofran Inj) 4 mg IV.PUSH Q6H PRN PRN Reason: NAUSEA OR VOMITING Pantoprazole Sodium (Protonix Inj) 40 mg IV.PUSH Q12H [facility] Last Admin: 07/17/18 08:24 Dose: Not Given Potassium Bicarb/Potassium Chloride (K-Lyte Cl Eff) 50 meq PO UNSCH PRN PRN Reason: For Potassium 3.3 - 3.5 mEq/L Potassium Phosphate (K-Phos Original) 2,000 mg PO Q4H PRN PRN Reason: Phosphorus Less Than 2.5 mg/dL Potassium Phosphate (K-Phos Original) 2,000 mg PO UNSCH PRN PRN Reason: SEE LABEL COMMENTS Sodium Chloride (Ns Flush) 2 ml IV.FLUSH BID [facility] Last Admin: 07/17/18 08:23 Dose: 2 ml Sodium Chloride (Ns Flush) 2 ml IV.FLUSH PRN PRN PRN Reason: FLUSH AFTER USING IV ACCESS Terbutaline Sulfate (Brethine Inj) 1 mg SQ UNSCH PRN PRN Reason: For Extravasation <Tony Atkins E - Last Filed: 07/17/18 16:56> Allergies Allergy/AdvReac Type Severity Reaction Status Date / Time erythromycin base Allergy Diarrhea Verified 07/16/18 22:20 Home Medications Medication Instructions Recorded Confirmed Type aspirin [Aspir-Low] 81 mg PO DAILY 06/15/18 07/16/18 History cholecalciferol (vitamin D3) 2,000 unit PO DAILY 06/15/18 07/16/18 History [Vitamin D3] omeprazole 20 mg PO DAILY 06/15/18 07/16/18 History vit C,W-Zx-joqje-lutein-zeaxan 1 tab PO BID 06/15/18 07/16/18 History [PreserVision AREDS-2] Exam Vital signs: Vital Signs 07/16/18 22:20 07/16/18 22:38 07/16/18 23:30 Temperature 98.4 F Pulse Rate 96 H 96 H Respiratory Rate 18 18 Blood Pressure 72/47 L 74/43 L Pulse Oximetry 97 96 96 07/17/18 00:22 07/17/18 01:23 07/17/18 02:42 Temperature 98.0 F Pulse Rate 94 H 72 101 H Respiratory Rate 18 18 16 Blood Pressure 72/43 L 78/50 L 122/54 L Pulse Oximetry 96 97 87 L 07/17/18 02:58 07/17/18 03:27 07/17/18 04:00 Temperature 97.7 F 98.3 F Pulse Rate 97 H 95 H 93 H Respiratory Rate 16 17 19 Blood Pressure 83/50 L 88/52 L Pulse Oximetry 97 98 07/17/18 04:35 07/17/18 05:00 07/17/18 06:00 Temperature 97.7 F Pulse Rate 98 H 100 H 96 H Respiratory Rate 16 22 25 H Blood Pressure 88/52 L 89/50 L 79/49 L Pulse Oximetry 96 97 07/17/18 06:16 07/17/18 06:17 07/17/18 06:19 Temperature Pulse Rate 92 H 93 H 93 H Respiratory Rate 23 21 17 Blood Pressure 63/43 L 82/48 L 82/39 L Pulse Oximetry 99 98 100 07/17/18 06:20 07/17/18 06:41 07/17/18 10:45 Temperature 97.7 F 97.7 F Pulse Rate 94 H 93 H 100 H Respiratory Rate 19 16 21 Blood Pressure 86/48 L 86/48 L 89/51 L Pulse Oximetry 99 07/17/18 10:50 07/17/18 11:13 Temperature 97.7 F 97.8 F Pulse Rate 99 H 101 H Respiratory Rate Blood Pressure 88/55 L Pulse Oximetry 100 Intake & Output 07/16/18 07/17/18 07/17/18 18:59 06:59 18:59 Intake Total 1430 / 1430 200 / 200 Balance 1430 / 1430 200 / 200 Weight 108 kg Intake: IV 600 / 600 200 / 200 Magnesium Sulfate 1 gm/D5W 100 100 / 100 ml Premix 100 ML @ 100 mls/hr IV.SIG ONCE ONE Rx#:[id number] NS Inj 500 ML @ Wide Open IV. 500 / 500 SIG BOLUS [place] Rx#:[id number] Rocephin Inj 1,000 MG In NS Inj 100 / 100 100 ML @ 200 mls/hr IV.SIG Q24H [facility] Rx#:[id number] Flagyl 500 MG Inj 100 ML @ 100 100 / 100 mls/hr IV.SIG Q8H [facility] Rx#: [id number] Oral 30 / 30 Intake (Blood Product) Amt 800 / 800 0 / 0 Plasma Thawed 5 Day Cp2d Unit 0 / 0 [id number] Rbc As-3 Leukoreduced Unit 400 / 400 [id number] Rbc As-3 Leukoreduced Unit 400 / 400 [id number] Other: Weight On Admission 108 kg - Constitutional moderate distress, obese, thin, disheveled (Poor historian) - Routine HEENT Exam Head: Present: normocephalic ENT: Present: mucous membranes dry - Routine Neck Exam Present: supple (Short obese) - Routine Respiratory Exam Present: accessory muscle use (Low volumes mild shortness of breath noted even at rest no audible wheezing or rhonchi) - Routine Cardiovascular Exam Present: S1, S2, tachycardia (Heart rate 102) - Routine Abdominal Exam Present: soft (Obese, round, soft bowel sounds no obvious distention or tenderness) - Routine Skin Exam Present: dry, pallor - Routine Neurological Exam Present: alert (Awake answers some simple questions) <Renetta Michel - Last Filed: 07/17/18 11:55> Vital signs: Vital Signs 07/16/18 22:20 07/16/18 22:38 07/16/18 23:30 Temperature 98.4 F Pulse Rate 96 H 96 H Respiratory Rate 18 18 Blood Pressure 72/47 L 74/43 L Pulse Oximetry 97 96 96 07/17/18 00:22 07/17/18 01:23 07/17/18 02:42 Temperature 98.0 F Pulse Rate 94 H 72 101 H Respiratory Rate 18 18 16 Blood Pressure 72/43 L 78/50 L 122/54 L Pulse Oximetry 96 97 87 L 07/17/18 02:58 07/17/18 03:27 07/17/18 04:00 Temperature 97.7 F 98.3 F Pulse Rate 97 H 95 H 93 H Respiratory Rate 16 17 19 Blood Pressure 83/50 L 88/52 L Pulse Oximetry 97 98 07/17/18 04:35 07/17/18 05:00 07/17/18 06:00 Temperature 97.7 F Pulse Rate 98 H 100 H 96 H Respiratory Rate 16 22 25 H Blood Pressure 88/52 L 89/50 L 79/49 L Pulse Oximetry 96 97 07/17/18 06:16 07/17/18 06:17 07/17/18 06:19 Temperature Pulse Rate 92 H 93 H 93 H Respiratory Rate 23 21 17 Blood Pressure 63/43 L 82/48 L 82/39 L Pulse Oximetry 99 98 100 07/17/18 06:20 07/17/18 06:41 07/17/18 07:00 Temperature 97.7 F Pulse Rate 94 H 93 H 94 H Respiratory Rate 19 16 23 Blood Pressure 86/48 L 86/48 L 88/52 L Pulse Oximetry 99 97 07/17/18 08:00 07/17/18 09:00 07/17/18 10:00 Temperature 97.6 F 97.7 F Pulse Rate 106 H 98 H 98 H Respiratory Rate 16 20 19 Blood Pressure 91/52 L 80/51 L 91/54 L Pulse Oximetry 100 99 98 07/17/18 10:45 07/17/18 10:50 07/17/18 11:00 Temperature 97.7 F 97.7 F Pulse Rate 100 H 99 H 100 H Respiratory Rate 21 22 Blood Pressure 89/51 L 89/58 L Pulse Oximetry 100 100 07/17/18 11:13 07/17/18 12:00 07/17/18 12:47 Temperature 97.8 F 97.7 F 98 F Pulse Rate 101 H 107 H 110 H Respiratory Rate 23 23 Blood Pressure 88/55 L 102/60 82/56 L Pulse Oximetry 99 98 07/17/18 13:00 07/17/18 14:00 Temperature Pulse Rate 110 H 107 H Respiratory Rate 21 22 Blood Pressure 84/51 L 87/54 L Pulse Oximetry 98 98 Intake & Output 07/16/18 07/17/18 07/17/18 18:59 06:59 18:59 Intake Total 1430 / 1430 351 / 351 Balance 1430 / 1430 351 / 351 Weight 108 kg Intake: IV 600 / 600 351 / 351 Protonix Inj 80 MG In NS Inj 100 / 100 100 ML @ 10 mls/hr IV.CONT CONT [facility] Rx#:[id number] Magnesium Sulfate 1 gm/D5W 100 100 / 100 ml Premix 100 ML @ 100 mls/hr IV.SIG ONCE ONE Rx#:[id number] Vitamin K Inj 10 MG In D5W Inj 51 / 51 50 ML @ 102 mls/hr IV.SIG ONCE ONE Rx#:[id number] NS Inj 500 ML @ Wide Open IV. 500 / 500 SIG BOLUS [facility] Rx#:[id number] Rocephin Inj 1,000 MG In NS Inj 100 / 100 100 ML @ 200 mls/hr IV.SIG Q24H [facility] Rx#:[id number] Flagyl 500 MG Inj 100 ML @ 100 100 / 100 mls/hr IV.SIG Q8H [facility] Rx#: [id number] Oral 30 / 30 Intake (Blood Product) Amt 800 / 800 0 / 0 Plasma Thawed 5 Day Cp2d Unit 0 / 0 [id number] Rbc As-3 Leukoreduced Unit 400 / 400 [id number] Rbc As-3 Leukoreduced Unit 400 / 400 [id number] Other: Date of Last Bowel Movement 07/17/18 Weight On Admission 108 kg <Wilbert,Tony E - Last Filed: 07/17/18 16:56> Results - Labs CBC & Chem 7: 07/17/18 11:09 07/17/18 11:09 Labs: Laboratory Results - last 24 hr 07/16/18 07/16/18 07/16/18 22:40 22:40 22:40 CBC w Diff Slide review pending WBC 12.1 H RBC 2.46 L Hgb 7.0 L Hct 21.5 L MCV 87.5 MCH 28.7 MCHC 32.8 RDW 15.4 Plt Count 531 H D MPV 7.9 Prelim Diff (Auto) Neut % (Auto) 87.7 H Lymph % (Auto) 6.6 L [place] % (Auto) 3.9 Eos % (Auto) 1.0 Baso % (Auto) 0.8 Neut # (Auto) 10.6 H Lymph # (Auto) 0.8 L [place] # (Auto) 0.5 Eos # (Auto) 0.1 Baso # (Auto) 0.1 WBC Differential Manual diff final Seg Neuts % (Manual) 46 Band Neuts % (Manual) 30 H Lymphocytes % (Manual) 4 L Monocytes % (Manual) 7 Eosinophils % (Manual) 2 Metamyelocytes % (Man) 11 H Abs Neuts (Manual) 10.5 H Nucleated RBCs/100 WBC 1 H Differential Comment . Toxic Vacuolation Present H Platelet Estimate High H Platelet Morphology Normal Dimorphic RBCs Present H PT INR APTT Sodium Potassium Chloride Carbon Dioxide Anion Gap BUN Creatinine Estimated GFR Random Glucose Calcium Prot Corrected Calcium Magnesium 1.4 L Total Bilirubin AST ALT Alkaline Phosphatase Ammonia Troponin I Less than 0.02 L Total Protein Albumin Lipase 47 L Nasal Screen MRSA (PCR) Blood Type A Negative Antibody Screen Negative MTS Gel Crossmatch See Detail Blood Bank Comment 07/16/18 07/16/18 07/17/18 22:40 22:40 01:00 CBC w Diff WBC RBC Hgb Hct MCV MCH MCHC RDW Plt Count MPV Prelim Diff (Auto) Neut % (Auto) Lymph % (Auto) G[place]rie % (Auto) Eos % (Auto) Baso % (Auto) Neut # (Auto) Lymph # (Auto) G[place]rie # (Auto) Eos # (Auto) Baso # (Auto) WBC Differential Seg Neuts % (Manual) Band Neuts % (Manual) Lymphocytes % (Manual) Monocytes % (Manual) Eosinophils % (Manual) Metamyelocytes % (Man) Abs Neuts (Manual) Nucleated RBCs/100 WBC Differential Comment Toxic Vacuolation Platelet Estimate Platelet Morphology Dimorphic RBCs PT 19.2 H INR 1.9 APTT 40.0 H Sodium 140 Potassium 3.9 Chloride 110 H Carbon Dioxide 20.6 L Anion Gap 9 BUN 31 H Creatinine 1.60 H Estimated GFR 32 L Random Glucose 108 H Calcium 6.8 L* Prot Corrected Calcium 8.1 L Magnesium Total Bilirubin 0.3 AST 30 ALT 11 Alkaline Phosphatase 96 Ammonia 11 Troponin I Total Protein 4.7 L Albumin 0.9 L Lipase Nasal Screen MRSA (PCR) Blood Type Antibody Screen [facility] Blood [facility] Comment 07/17/18 07/17/18 07/17/18 02:25 07:00 08:27 CBC w Diff WBC RBC Hgb 10.6 L D Hct MCV MCH MCHC RDW Plt Count MPV Prelim Diff (Auto) Neut % (Auto) Lymph % (Auto) [place] % (Auto) Eos % (Auto) Baso % (Auto) Neut # (Auto) Lymph # (Auto) G[place]rie # (Auto) Eos # (Auto) Baso # (Auto) WBC Differential Seg Neuts % (Manual) Band Neuts % (Manual) Lymphocytes % (Manual) Monocytes % (Manual) Eosinophils % (Manual) Metamyelocytes % (Man) Abs Neuts (Manual) Nucleated RBCs/100 WBC Differential Comment Toxic Vacuolation Platelet Estimate Platelet Morphology Dimorphic RBCs PT INR APTT Sodium Potassium Chloride Carbon Dioxide Anion Gap BUN Creatinine Estimated GFR Random Glucose Calcium Prot Corrected Calcium Magnesium Total Bilirubin AST ALT Alkaline Phosphatase Ammonia Troponin I Total Protein Albumin Lipase Nasal Screen MRSA (PCR) Mrsa detected Blood Type Antibody Screen [facility] Comment 07/17/18 11:09 CBC w Diff WBC 13.7 H RBC 3.75 L Hgb 10.9 L Hct 32.8 L MCV 87.4 MCH 29.0 MCHC 33.2 RDW 15.8 Plt Count 533 H MPV 7.3 Prelim Diff (Auto) Slide review pending Neut % (Auto) 93.6 H Lymph % (Auto) 2.9 L G[place] % (Auto) 2.0 Eos % (Auto) 1.4 Baso % (Auto) 0.1 Neut # (Auto) 12.8 H Lymph # (Auto) 0.4 L G[place] # (Auto) 0.3 Eos # (Auto) 0.2 Baso # (Auto) 0.0 WBC Differential Seg Neuts % (Manual) Band Neuts % (Manual) Lymphocytes % (Manual) Monocytes % (Manual) Eosinophils % (Manual) Metamyelocytes % (Man) Abs Neuts (Manual) Nucleated RBCs/100 WBC Differential Comment . Toxic Vacuolation Platelet Estimate Platelet Morphology Dimorphic RBCs PT INR APTT Sodium Potassium Chloride Carbon Dioxide Anion Gap BUN Creatinine Estimated GFR Random Glucose Calcium Prot Corrected Calcium Magnesium Total Bilirubin AST ALT Alkaline Phosphatase Ammonia Troponin I Total Protein Albumin Lipase Nasal Screen MRSA (PCR) Blood Type Antibody Screen MTS Gel Crossmatch Blood Bank Comment - Imaging Impressions Chest X-Ray 07/16/18 22:25 CONCLUSION: Cardiomegaly. No acute pulmonary disease. <Renetta Michel - Last Filed: 07/17/18 11:55> - Labs CBC & Chem 7: 07/17/18 11:09 07/17/18 11:09 Labs: Laboratory Results - last 24 hr 07/16/18 07/16/18 07/16/18 22:40 22:40 22:40 CBC w Diff Slide review pending WBC 12.1 H RBC 2.46 L Hgb 7.0 L Hct 21.5 L MCV 87.5 MCH 28.7 MCHC 32.8 RDW 15.4 Plt Count 531 H D MPV 7.9 Prelim Diff (Auto) Neut % (Auto) 87.7 H Lymph % (Auto) 6.6 L G[place] % (Auto) 3.9 Eos % (Auto) 1.0 Baso % (Auto) 0.8 Neut # (Auto) 10.6 H Lymph # (Auto) 0.8 L G[place] # (Auto) 0.5 Eos # (Auto) 0.1 Baso # (Auto) 0.1 WBC Differential Manual diff final Seg Neuts % (Manual) 46 Band Neuts % (Manual) 30 H Lymphocytes % (Manual) 4 L Monocytes % (Manual) 7 Eosinophils % (Manual) 2 Metamyelocytes % (Man) 11 H Promyelocytes % (Man) Abs Neuts (Manual) 10.5 H Nucleated RBCs/100 WBC 1 H Differential Comment . Toxic Granulation Toxic Vacuolation Present H Platelet Estimate High H Platelet Morphology Normal Dimorphic RBCs Present H PT INR APTT Fibrinogen Sodium Potassium Chloride Carbon Dioxide Anion Gap BUN Creatinine Estimated GFR Random Glucose Lactic Acid Calcium Prot Corrected Calcium Phosphorus Magnesium 1.4 L Total Bilirubin AST ALT Alkaline Phosphatase Ammonia Troponin I Less than 0.02 L Total Protein Albumin Lipase 47 L Nasal Screen MRSA (PCR) Stl C.difficile DNA Amp St C. diff Tox Epid 027 Blood Type A Negative Antibody Screen Negative MTS Gel Crossmatch See Detail Blood Bank Comment 07/16/18 07/16/18 07/17/18 22:40 22:40 01:00 CBC w Diff WBC RBC Hgb Hct MCV MCH MCHC RDW Plt Count MPV Prelim Diff (Auto) Neut % (Auto) Lymph % (Auto) Guthrie % (Auto) Eos % (Auto) Baso % (Auto) Neut # (Auto) Lymph # (Auto) G[place]rie # (Auto) Eos # (Auto) Baso # (Auto) WBC Differential Seg Neuts % (Manual) Band Neuts % (Manual) Lymphocytes % (Manual) Monocytes % (Manual) Eosinophils % (Manual) Metamyelocytes % (Man) Promyelocytes % (Man) Abs Neuts (Manual) Nucleated RBCs/100 WBC Differential Comment Toxic Granulation Toxic Vacuolation Platelet Estimate Platelet Morphology Dimorphic RBCs PT 19.2 H INR 1.9 APTT 40.0 H Fibrinogen Sodium 140 Potassium 3.9 Chloride 110 H Carbon Dioxide 20.6 L Anion Gap 9 BUN 31 H Creatinine 1.60 H Estimated GFR 32 L Random Glucose 108 H Lactic Acid Calcium 6.8 L* Prot Corrected Calcium 8.1 L Phosphorus Magnesium Total Bilirubin 0.3 AST 30 ALT 11 Alkaline Phosphatase 96 Ammonia 11 Troponin I Total Protein 4.7 L Albumin 0.9 L Lipase Nasal Screen MRSA (PCR) Stl C.difficile DNA Amp St C. diff Tox Epid 027 Blood Type Antibody Screen MTS Gel Crossmatch Blood Bank Comment 07/17/18 07/17/18 07/17/18 01:10 02:25 07:00 CBC w Diff WBC RBC Hgb Hct MCV MCH MCHC RDW Plt Count MPV Prelim Diff (Auto) Neut % (Auto) Lymph % (Auto) [place] % (Auto) Eos % (Auto) Baso % (Auto) Neut # (Auto) Lymph # (Auto) [place] # (Auto) Eos # (Auto) Baso # (Auto) WBC Differential Seg Neuts % (Manual) Band Neuts % (Manual) Lymphocytes % (Manual) Monocytes % (Manual) Eosinophils % (Manual) Metamyelocytes % (Man) Promyelocytes % (Man) Abs Neuts (Manual) Nucleated RBCs/100 WBC Differential Comment Toxic Granulation Toxic Vacuolation Platelet Estimate Platelet Morphology Dimorphic RBCs PT INR APTT Fibrinogen Sodium Potassium Chloride Carbon Dioxide Anion Gap BUN Creatinine Estimated GFR Random Glucose Lactic Acid Calcium Prot Corrected Calcium Phosphorus Magnesium Total Bilirubin AST ALT Alkaline Phosphatase Ammonia Troponin I Total Protein Albumin Lipase Nasal Screen MRSA (PCR) Mrsa detected Stl C.difficile DNA Amp Negative St C. diff Tox Epid 027 Negative Blood Type Antibody Screen Lumatix Gel CrossKBLEtch Blood Bank Comment 07/17/18 07/17/18 07/17/18 08:27 11:09 11:09 CBC w Diff WBC 13.7 H RBC 3.75 L Hgb 10.6 L D 10.9 L Hct 32.8 L MCV 87.4 MCH 29.0 MCHC 33.2 RDW 15.8 Plt Count 533 H MPV 7.3 Prelim Diff (Auto) Slide review pending Neut % (Auto) 93.6 H Lymph % (Auto) 2.9 L G[place]rie % (Auto) 2.0 Eos % (Auto) 1.4 Baso % (Auto) 0.1 Neut # (Auto) 12.8 H Lymph # (Auto) 0.4 L G[place]rie # (Auto) 0.3 Eos # (Auto) 0.2 Baso # (Auto) 0.0 WBC Differential Manual diff final Seg Neuts % (Manual) 46 Band Neuts % (Manual) 49 H Lymphocytes % (Manual) Monocytes % (Manual) 2 Eosinophils % (Manual) 2 Metamyelocytes % (Man) Promyelocytes % (Man) 1 H Abs Neuts (Manual) 13.2 H Nucleated RBCs/100 WBC Differential Comment . Toxic Granulation 2+ H Toxic Vacuolation Present H Platelet Estimate High H Platelet Morphology Clumped H Dimorphic RBCs PT 17.3 H INR 1.7 APTT Fibrinogen 485 H Sodium Potassium Chloride Carbon Dioxide Anion Gap BUN Creatinine Estimated GFR Random Glucose Lactic Acid Calcium Prot Corrected Calcium Phosphorus Magnesium Total Bilirubin AST ALT Alkaline Phosphatase Ammonia Troponin I Total Protein Albumin Lipase Nasal Screen MRSA (PCR) Stl C.difficile DNA Amp St C. diff Tox Epid 027 Blood Type Antibody Screen Lumatix Gel Crossmatch Blood Bank Comment 07/17/18 07/17/18 07/17/18 11:09 11:09 11:09 CBC w Diff WBC RBC Hgb Hct MCV MCH MCHC RDW Plt Count MPV Prelim Diff (Auto) Neut % (Auto) Lymph % (Auto) Guthrie % (Auto) Eos % (Auto) Baso % (Auto) Neut # (Auto) Lymph # (Auto) Guthrie # (Auto) Eos # (Auto) Baso # (Auto) WBC Differential Seg Neuts % (Manual) Band Neuts % (Manual) Lymphocytes % (Manual) Monocytes % (Manual) Eosinophils % (Manual) Metamyelocytes % (Man) Promyelocytes % (Man) Abs Neuts (Manual) Nucleated RBCs/100 WBC Differential Comment Toxic Granulation Toxic Vacuolation Platelet Estimate Platelet Morphology Dimorphic RBCs PT INR APTT 39.7 H Fibrinogen Sodium 143 Potassium 3.8 Chloride 111 H Carbon Dioxide 20.1 L Anion Gap 12 BUN 28 H Creatinine 1.52 H Estimated GFR 34 L Random Glucose 100 Lactic Acid 1.9 Calcium 6.9 L* Prot Corrected Calcium 7.8 L Phosphorus 4.8 Magnesium 1.8 Total Bilirubin 0.5 AST 24 ALT 11 Alkaline Phosphatase 119 H Ammonia Troponin I Total Protein 5.3 L D Albumin 1.0 L Lipase Nasal Screen MRSA (PCR) Stl C.difficile DNA Amp St C. diff Tox Epid 027 Blood Type Antibody Screen MTS Gel Crossmatch Blood Bank Comment - Imaging Impressions Chest X-Ray 07/16/18 22:25 CONCLUSION: Cardiomegaly. No acute pulmonary disease. <Tony Atkins E - Last Filed: 07/17/18 16:56> Assessment and Plan - Plan obese 72-year-old female who was just discharged from the hospital on 07/11/2018 and seen per gastroenterology. patient also had obstructing ureteral stone and underwent cystoscopy and was set up for lithotripsy as an outpatient after discharge. Patient also was treated for diverticulitis per CT scan last admission and treated with Levaquin and Flagyl during her hospital stay patient was refusing to have any GI procedures including EGD or colonoscopy. Patient has never had either test done before and still is stating no EGD or colonoscopy to be done. Patient's currently being monitored in the intensive care setting with hypotension, current BP 91/54, tachycardia heart rate 102 and does appear weak, fatigued, and pale. Current hemoglobin is 7, PT/INR 1.9, bilirubin LFTs are normal, magnesium did decreased at 1.4, lipase 47, ammonia 11. Patient is a poor historian and is unaware if she has had any melena stools but does note chronic diarrhea at home unknown number of stools daily, 1- 2 noted on the record. According to the record Hemoccult was positive in the emergency room and stool was brown. Currently patient denies any type of abdominal pain no nausea no vomiting but does note some decreased appetite. Gastroenterology was consulted to assist in her symptom management and plan of care but it is noted that patient is refusing EGD or colonoscopy last admission as well as this admission. GI bleed, unknown source of bleeding except positive Hemoccult but could be related to Eliquis. Stools are brown Symptomatic anemia hemoglobin 7 post transfusion recent hemoglobin 10 0.9., Monitoring symptoms in the intensive care setting of hypotension, tachycardia, weakness and dizziness history of atrial fibrillation, current heart rate 102. Currently has Protonix drip infusing. No obvious bright red bleeding. Chronic diarrhea could be related to patient's overall comorbidity, Eliquis probable and/or other medications. Recent history of diverticulitis Hypomagnesemia, per attending Patient is refusing EGD and colonoscopy and also refused this past recent admission. Discussed with her other options which could be bleeding scan, but since patient sees no obvious blood bleeding , may be microscopic. Repeat hemoglobin 10.9 after transfusion, Eliquis is on hold. Discussed with patient past admission that she is very high risk for GI bleed with Eliquis. Plan Diet n.p.o. Monitor labs especially attention of hemoglobin, transfuse as needed Recheck PT/INR in a.m. Protonix drip Hattie Pastrana Noted that Eliquis is currently on hold Currently patient is not stable for any further GI procedures or bleeding scan, will reevaluate her needs within the next 24-48 hours after more stable Supportive care Further recommendations to follow Patient was seen per myself and Dr. Atkins, note was written on his behalf <Renetta Michel - Last Filed: 07/17/18 11:55> - Plan Patient seen and examined Agree with above Continue with current supportive care Monitor labs Hemoglobin stable no evidence of any active GI bleed Patient very weak and short of breath and tachycardic not a good situation for endoscopy at this point therefore we will hold off until patient is more stable Patient still resisting endoscopy but would proceed if there is any emergency situation or active bleeding <Tony Atkins E - Last Filed: 07/17/18 16:56>
[2018-07-17 12:05] LABS: Eosinophils 2 % (0-4); Monocytes 2 % (0-8); Platelet Morphology Clumped (Normal); Promyelocyte 1 % (0-0); Toxic Granulation 2+; Toxic Vacuolation Present
[2018-07-17] MEDS: Pantoprazole Inj 80 MG in Sodium Chlor 0.9% Inj 100 ML IV.CONT SCH (14:48)
--- NOTE | 2018-07-17 15:25 | P.CONID ---
History of Present Illness Service: ID Consult date: 07/17/18 Requesting Physician: Vy Moreno Reason for Consult: diverticulitis, leukocytosis, bandemia Primary Care Provider: Do Sarah Barrteo Family Provider: Do Sarah Barreto Chief Complaint: Hypotension, anemia History of Present Illness: 72 yo female with morbid obesity and multiple med problems was recently admitted for rectal bleeding She required transfusion of 2 units packed red cells during that admission and subsequent hemoglobin trend was relatively stable.. CT abdomen and pelvis demonstrated diverticulitis versus colitis. She was treated with Levaquin and Flagyl. She was followed by gastroenterology who initially recommended endoscopy however after multiple discussions patient opted to defer on this and gastroenterology recommended follow-up endoscopy in 3-4 weeks as an outpatient. She also had obstructing right ureteral stone and underwent cystoscopy, lithotripsy and ureteral stent 07/06/[address] Amaya. Her hemoglobin is 7.0. She is on Eliquis She has 1-2 loose stools on average daily, + decreased appetite over the last 2-3 days. Denies nausea or vomiting. SHe declined colonoscopy She was scoped many years ago in She was eventually discharged to rehab, but sent back 2/2 low hemoglobin and hypotension. Stool was hem + She presented afebrile but with leukocytosis and extreme bandemia, up to 49% Her repeat CT a\bd/pelvis from today showed persistent pericolic inflammatory changes involving the distal transverse colon and descending colon consistent with acute diverticulitis or colitis. Pt was started on zosyn C.diff testing repeatedly negatiove BP low and pt was started on low dose of norepinephrine 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, Medical Record - Medical History Medical History: Medical History (Last Reviewed 07/17/18 @ 21:59 by Lisa Jacobsen MD) Atrial fibrillation CKD (chronic kidney disease) stage 3, GFR 30-59 ml/min GERD (gastroesophageal reflux disease) HLD (hyperlipidemia) HTN (hypertension) Obesity, morbid, BMI 40.0-49.9 Urinary tract obstruction by kidney stone - Surgical History Surgical History: Surgical History (Last Reviewed 07/17/18 @ 21:59 by Lisa Jacobsen MD) History of lithotripsy History of ureter stent Hx of cystoscopy - Family History Family History: Family History (Last Reviewed 07/17/18 @ 21:59 by Lisa Jacobsen MD) Other No significant family history - Social History I have reviewed the patient's Social History: Yes - Tobacco History Second Hand Smoke Exposure: No Smoking Status: Never smoker - Alcohol History How Often Do You Have a Drink Containing Alcohol: Never - Substance Use History Substance History: No History of Abuse - Travel History Recent Travel in the [place] Within the Last 8 Weeks: No Recent Travel Out of the Country Within the Last 8 Weeks: No - Immunization History Tetanus Immunization: Unsure Hx Influenza Vaccine This Season: Yes Medications and Allergies Active Medications: Active Medications Hydrocodone Bitart/Acetaminophen (Heflin 5/325) 1 tab PO Q4H PRN PRN Reason: PAIN SCALE 1 TO 5 Albuterol (Albuterol Neb (Prn)) 2.5 mg NEB Q2HR NEB PRN PRN Reason: SHORTNESS OF BREATH/WHEEZING Chlorhexidine Gluconate (Chlorhexidine 2% Cloth) 3 pack TOPICAL DAILY@0400 [place] Stop: 07/22/18 03:59 Last Admin: 07/17/18 05:31 Dose: 3 pack Chlorhexidine Gluconate (Chlorhexidine 2% Cloth) 3 pack TOPICAL DAILY@0400 PRN PRN Reason: Extra cloth needed Stop: 07/22/18 03:59 Chlorhexidine Gluconate (Chlorhexidine 2% Cloth) 3 pack TOPICAL DAILY@0400 [place] Stop: 07/23/18 03:59 Chlorhexidine Gluconate (Chlorhexidine 2% Cloth) 3 pack TOPICAL DAILY@0400 PRN PRN Reason: Extra cloth needed Stop: 07/23/18 03:59 Pantoprazole Sodium 80 mg/ (Sodium Chloride) 100 mls @ 10 mls/hr IV.CONT CONT [place] Last Admin: 07/17/18 14:48 Dose: 10 mls/hr Sodium Chloride (Ns Inj) 500 mls @ 0 mls/hr IV.SIG BOLUS [place] Last Infusion: 07/17/18 00:20 Dose: Infused Sodium Chloride (Ns Inj) 1,000 mls @ 0 mls/hr IV.SIG BOLUS [place] Magnesium Sulfate 4 gm/ Sodium (Chloride) 100 mls @ 50 mls/hr IV.SIG UNSCH PRN PRN Reason: For Magnesium 0.9 - 1.1 mg/dL Magnesium Sulfate 2 gm/ Sodium (Chloride) 100 mls @ 50 mls/hr IV.SIG UNSCH PRN PRN Reason: For Magnesium 1.2 - 1.6 mg/dL Potassium Chloride (Kcl 40 Meq Premix Inj) 40 meq in 100 mls @ 25 mls/hr IV.SIG Q2H PRN PRN Reason: For Potassium 2.8 - 3.2 mEq/L Potassium Chloride (Kcl 20 Meq Premix Inj) 20 meq in 100 mls @ 50 mls/hr IV.SIG Q2H PRN PRN Reason: For Potassium 3.3 - 3.5 mEq/L Potassium Chloride (Kcl 40 Meq Premix Inj) 40 meq in 100 mls @ 25 mls/hr IV.SIG UNSCH PRN PRN Reason: For Potassium 3.3 - 3.5 mEq/L Potassium Phosphate 30 mmol/ (Sodium Chloride) 260 mls @ 42 mls/hr IV.SIG UNSCH PRN PRN Reason: SEE LABEL COMMENTS Sodium Phosphate 30 mmol/ (Sodium Chloride) 260 mls @ 42 mls/hr IV.SIG UNSCH PRN PRN Reason: For Phosphorus < 2.5 mg/dL Potassium Chloride (Kcl 20 Meq Premix Inj) 20 meq in 100 mls @ 50 mls/hr IV.SIG Q2H PRN PRN Reason: For Potassium 2.8 - 3.2 mEq/L Phenylephrine HCl 40 mg/ (Dextrose) 500 mls @ 30 mls/hr IV.CONT TITRATE PRN; Protocol PRN Reason: Per Protocol Sodium Chloride (Ns Inj) 1,000 mls @ 70 mls/hr IV.CONT .[id number] [facility] Last Admin: 07/17/18 08:00 Dose: 70 mls/hr Sodium Chloride (Ns Inj) 250 mls @ 15 mls/hr IV.SIG ONCE [place] Stop: 07/17/18 23:39 Last Admin: 07/17/18 10:50 Dose: 15 mls/hr Piperacillin/Tazobactam/Dextrose (Zosyn 3.375 Gm Premix) 50 mls @ 100 mls/hr IV.SIG Q6H [place] Magnesium Oxide (Mag-Ox) 800 mg PO UNSCH PRN PRN Reason: For Magnesium 1.2 - 1.6 mg/dL Morphine Sulfate (Morphine Inj) 2 mg IV.PUSH Q2H PRN PRN Reason: PAIN SCALE 6 TO 10 Ondansetron HCl (Zofran Inj) 4 mg IV.PUSH Q6H PRN PRN Reason: NAUSEA OR VOMITING Pantoprazole Sodium (Protonix Inj) 40 mg IV.PUSH Q12H [facility] Last Admin: 07/17/18 08:24 Dose: Not Given Potassium Bicarb/Potassium Chloride (K-Lyte Cl Eff) 50 meq PO UNSCH PRN PRN Reason: For Potassium 3.3 - 3.5 mEq/L Potassium Phosphate (K-Phos Original) 2,000 mg PO Q4H PRN PRN Reason: Phosphorus Less Than 2.5 mg/dL Potassium Phosphate (K-Phos Original) 2,000 mg PO UNSCH PRN PRN Reason: SEE LABEL COMMENTS Sodium Chloride (Ns Flush) 2 ml IV.FLUSH BID [facility] Last Admin: 07/17/18 08:23 Dose: 2 ml Sodium Chloride (Ns Flush) 2 ml IV.FLUSH PRN PRN PRN Reason: FLUSH AFTER USING IV ACCESS Terbutaline Sulfate (Brethine Inj) 1 mg SQ UNSCH PRN PRN Reason: For Extravasation Allergies Allergy/AdvReac Type Severity Reaction Status Date / Time erythromycin base Allergy Diarrhea Verified 07/16/18 22:20 Home Medications Medication Instructions Recorded Confirmed Type aspirin [Aspir-Low] 81 mg PO DAILY 06/15/18 07/16/18 History cholecalciferol (vitamin D3) 2,000 unit PO DAILY 06/15/18 07/16/18 History [Vitamin D3] omeprazole 20 mg PO DAILY 06/15/18 07/16/18 History vit C,G-Vk-wnfiz-lutein-zeaxan 1 tab PO BID 06/15/18 07/16/18 History [PreserVision AREDS-2] Exam Vital signs: Vital Signs 07/16/18 22:20 07/16/18 22:38 07/16/18 23:30 Temperature 98.4 F Pulse Rate 96 H 96 H Respiratory Rate 18 18 Blood Pressure 72/47 L 74/43 L Pulse Oximetry 97 96 96 07/17/18 00:22 07/17/18 01:23 07/17/18 02:42 Temperature 98.0 F Pulse Rate 94 H 72 101 H Respiratory Rate 18 18 16 Blood Pressure 72/43 L 78/50 L 122/54 L Pulse Oximetry 96 97 87 L 07/17/18 02:58 07/17/18 03:27 07/17/18 04:00 Temperature 97.7 F 98.3 F Pulse Rate 97 H 95 H 93 H Respiratory Rate 16 17 19 Blood Pressure 83/50 L 88/52 L Pulse Oximetry 97 98 07/17/18 04:35 07/17/18 05:00 07/17/18 06:00 Temperature 97.7 F Pulse Rate 98 H 100 H 96 H Respiratory Rate 16 22 25 H Blood Pressure 88/52 L 89/50 L 79/49 L Pulse Oximetry 96 97 07/17/18 06:16 07/17/18 06:17 07/17/18 06:19 Temperature Pulse Rate 92 H 93 H 93 H Respiratory Rate 23 21 17 Blood Pressure 63/43 L 82/48 L 82/39 L Pulse Oximetry 99 98 100 07/17/18 06:20 07/17/18 06:41 07/17/18 07:00 Temperature 97.7 F Pulse Rate 94 H 93 H 94 H Respiratory Rate 19 16 23 Blood Pressure 86/48 L 86/48 L 88/52 L Pulse Oximetry 99 97 07/17/18 08:00 07/17/18 09:00 07/17/18 10:00 Temperature 97.6 F 97.7 F Pulse Rate 106 H 98 H 98 H Respiratory Rate 16 20 19 Blood Pressure 91/52 L 80/51 L 91/54 L Pulse Oximetry 100 99 98 07/17/18 10:45 07/17/18 10:50 07/17/18 11:00 Temperature 97.7 F 97.7 F Pulse Rate 100 H 99 H 100 H Respiratory Rate 21 22 Blood Pressure 89/51 L 89/58 L Pulse Oximetry 100 100 07/17/18 11:13 07/17/18 12:00 07/17/18 12:47 Temperature 97.8 F 97.7 F 98 F Pulse Rate 101 H 107 H 110 H Respiratory Rate 23 23 Blood Pressure 88/55 L 102/60 82/56 L Pulse Oximetry 99 98 07/17/18 13:00 07/17/18 14:00 Temperature Pulse Rate 110 H 107 H Respiratory Rate 21 22 Blood Pressure 84/51 L 87/54 L Pulse Oximetry 98 98 Intake & Output 07/16/18 07/17/18 07/17/18 18:59 06:59 18:59 Intake Total 1430 / 1430 351 / 351 Balance 1430 / 1430 351 / 351 Weight 108 kg Intake: IV 600 / 600 351 / 351 Protonix Inj 80 MG In NS Inj 100 / 100 100 ML @ 10 mls/hr IV.CONT CONT [facility] Rx#:[id number] Magnesium Sulfate 1 gm/D5W 100 100 / 100 ml Premix 100 ML @ 100 mls/hr IV.SIG ONCE ONE Rx#:[id number] Vitamin K Inj 10 MG In D5W Inj 51 / 51 50 ML @ 102 mls/hr IV.SIG ONCE ONE Rx#:[id number] NS Inj 500 ML @ Wide Open IV. 500 / 500 SIG BOLUS [place] Rx#:[id number] Rocephin Inj 1,000 MG In NS Inj 100 / 100 100 ML @ 200 mls/hr IV.SIG Q24H [place] Rx#:[id number] Flagyl 500 MG Inj 100 ML @ 100 100 / 100 mls/hr IV.SIG Q8H [place] Rx#: [id number] Oral 30 / 30 Intake (Blood Product) Amt 800 / 800 0 / 0 Plasma Thawed 5 Day Cp2d Unit 0 / 0 [id number] Rbc As-3 Leukoreduced Unit 400 / 400 [id number] Rbc As-3 Leukoreduced Unit 400 / 400 [id number] Other: Date of Last Bowel Movement 07/17/18 Weight On Admission 108 kg - Constitutional no acute distress, morbidly obese - Routine HEENT Exam Head: Present: normocephalic, atraumatic Eye: Present: EOMI, PERRL ENT: Present: mucous membranes dry, oropharynx clear - Routine Neck Exam Present: supple, full ROM. Absent: JVD - Routine Respiratory Exam Present: decreased breath sounds, CTA bilaterally. Absent: accessory muscle use - Routine Cardiovascular Exam Present: RRR, S1, S2. Absent: murmur, gallop, rubs - Routine Abdominal Exam Present: soft, normoactive bowel sounds, tenderness (LLQ). Absent: distended, rebound, guarding, organomegaly, mass - Routine Extremities Exam Present: edema (2+). Absent: cyanosis, clubbing - Routine Skin Exam Present: intact, dry, warm. Absent: rash - Routine Neurological Exam Present: alert, oriented X3, CN II-XII intact, moving all extremities, hearing grossly intact, normal speech - Routine Psychiatric Exam Present: cooperative, depressed Results - Labs CBC & Chem 7: 07/17/18 20:06 07/17/18 11:09 Labs: Laboratory Results - last 24 hr 07/16/18 07/16/18 07/16/18 22:40 22:40 22:40 CBC w Diff Slide review pending WBC 12.1 H RBC 2.46 L Hgb 7.0 L Hct 21.5 L MCV 87.5 MCH 28.7 MCHC 32.8 RDW 15.4 Plt Count 531 H D MPV 7.9 Prelim Diff (Auto) Neut % (Auto) 87.7 H Lymph % (Auto) 6.6 L Allen % (Auto) 3.9 Eos % (Auto) 1.0 Baso % (Auto) 0.8 Neut # (Auto) 10.6 H Lymph # (Auto) 0.8 L Allen # (Auto) 0.5 Eos # (Auto) 0.1 Baso # (Auto) 0.1 WBC Differential Manual diff final Seg Neuts % (Manual) 46 Band Neuts % (Manual) 30 H Lymphocytes % (Manual) 4 L Monocytes % (Manual) 7 Eosinophils % (Manual) 2 Metamyelocytes % (Man) 11 H Promyelocytes % (Man) Abs Neuts (Manual) 10.5 H Nucleated RBCs/100 WBC 1 H Differential Comment . Toxic Granulation Toxic Vacuolation Present H Platelet Estimate High H Platelet Morphology Normal Dimorphic RBCs Present H PT INR APTT Fibrinogen Sodium Potassium Chloride Carbon Dioxide Anion Gap BUN Creatinine Estimated GFR Random Glucose Lactic Acid Calcium Prot Corrected Calcium Phosphorus Magnesium 1.4 L Total Bilirubin AST ALT Alkaline Phosphatase Ammonia Troponin I Less than 0.02 L Total Protein Albumin Lipase 47 L Nasal Screen MRSA (PCR) Stl C.difficile DNA Amp St C. diff Tox Epid 027 Blood Type A Negative Antibody Screen Negative MTS Gel Crossmatch See Detail Blood Bank Comment 07/16/18 07/16/18 07/17/18 22:40 22:40 01:00 CBC w Diff WBC RBC Hgb Hct MCV MCH MCHC RDW Plt Count MPV Prelim Diff (Auto) Neut % (Auto) Lymph % (Auto) Allen % (Auto) Eos % (Auto) Baso % (Auto) Neut # (Auto) Lymph # (Auto) Allen # (Auto) Eos # (Auto) Baso # (Auto) WBC Differential Seg Neuts % (Manual) Band Neuts % (Manual) Lymphocytes % (Manual) Monocytes % (Manual) Eosinophils % (Manual) Metamyelocytes % (Man) Promyelocytes % (Man) Abs Neuts (Manual) Nucleated RBCs/100 WBC Differential Comment Toxic Granulation Toxic Vacuolation Platelet Estimate Platelet Morphology Dimorphic RBCs PT 19.2 H INR 1.9 APTT 40.0 H Fibrinogen Sodium 140 Potassium 3.9 Chloride 110 H Carbon Dioxide 20.6 L Anion Gap 9 BUN 31 H Creatinine 1.60 H Estimated GFR 32 L Random Glucose 108 H Lactic Acid Calcium 6.8 L* Prot Corrected Calcium 8.1 L Phosphorus Magnesium Total Bilirubin 0.3 AST 30 ALT 11 Alkaline Phosphatase 96 Ammonia 11 Troponin I Total Protein 4.7 L Albumin 0.9 L Lipase Nasal Screen MRSA (PCR) Stl C.difficile DNA Amp St C. diff Tox Epid 027 Blood Type Antibody Screen [facility] Blood Bank Comment 07/17/18 07/17/18 07/17/18 01:10 02:25 07:00 CBC w Diff WBC RBC Hgb Hct MCV MCH MCHC RDW Plt Count MPV Prelim Diff (Auto) Neut % (Auto) Lymph % (Auto) Allen % (Auto) Eos % (Auto) Baso % (Auto) Neut # (Auto) Lymph # (Auto) Allen # (Auto) Eos # (Auto) Baso # (Auto) WBC Differential Seg Neuts % (Manual) Band Neuts % (Manual) Lymphocytes % (Manual) Monocytes % (Manual) Eosinophils % (Manual) Metamyelocytes % (Man) Promyelocytes % (Man) Abs Neuts (Manual) Nucleated RBCs/100 WBC Differential Comment Toxic Granulation Toxic Vacuolation Platelet Estimate Platelet Morphology Dimorphic RBCs PT INR APTT Fibrinogen Sodium Potassium Chloride Carbon Dioxide Anion Gap BUN Creatinine Estimated GFR Random Glucose Lactic Acid Calcium Prot Corrected Calcium Phosphorus Magnesium Total Bilirubin AST ALT Alkaline Phosphatase Ammonia Troponin I Total Protein Albumin Lipase Nasal Screen MRSA (PCR) Mrsa detected Stl C.difficile DNA Amp Negative St C. diff Tox Epid 027 Negative Blood Type Antibody Screen [employer] Gel CrossmYwindowtch Blood Bank Comment 07/17/18 07/17/18 07/17/18 08:27 11:09 11:09 CBC w Diff WBC 13.7 H RBC 3.75 L Hgb 10.6 L D 10.9 L Hct 32.8 L MCV 87.4 MCH 29.0 MCHC 33.2 RDW 15.8 Plt Count 533 H MPV 7.3 Prelim Diff (Auto) Slide review pending Neut % (Auto) 93.6 H Lymph % (Auto) 2.9 L Allen % (Auto) 2.0 Eos % (Auto) 1.4 Baso % (Auto) 0.1 Neut # (Auto) 12.8 H Lymph # (Auto) 0.4 L Allen # (Auto) 0.3 Eos # (Auto) 0.2 Baso # (Auto) 0.0 WBC Differential Manual diff final Seg Neuts % (Manual) 46 Band Neuts % (Manual) 49 H Lymphocytes % (Manual) Monocytes % (Manual) 2 Eosinophils % (Manual) 2 Metamyelocytes % (Man) Promyelocytes % (Man) 1 H Abs Neuts (Manual) 13.2 H Nucleated RBCs/100 WBC Differential Comment . Toxic Granulation 2+ H Toxic Vacuolation Present H Platelet Estimate High H Platelet Morphology Clumped H Dimorphic RBCs PT 17.3 H INR 1.7 APTT Fibrinogen 485 H Sodium Potassium Chloride Carbon Dioxide Anion Gap BUN Creatinine Estimated GFR Random Glucose Lactic Acid Calcium Prot Corrected Calcium Phosphorus Magnesium Total Bilirubin AST ALT Alkaline Phosphatase Ammonia Troponin I Total Protein Albumin Lipase Nasal Screen MRSA (PCR) Stl C.difficile DNA Amp St C. diff Tox Epid 027 Blood Type Antibody Screen MTS Gel Crossmatch Blood Bank Comment 07/17/18 07/17/18 07/17/18 11:09 11:09 11:09 CBC w Diff WBC RBC Hgb Hct MCV MCH MCHC RDW Plt Count MPV Prelim Diff (Auto) Neut % (Auto) Lymph % (Auto) Allen % (Auto) Eos % (Auto) Baso % (Auto) Neut # (Auto) Lymph # (Auto) Allen # (Auto) Eos # (Auto) Baso # (Auto) WBC Differential Seg Neuts % (Manual) Band Neuts % (Manual) Lymphocytes % (Manual) Monocytes % (Manual) Eosinophils % (Manual) Metamyelocytes % (Man) Promyelocytes % (Man) Abs Neuts (Manual) Nucleated RBCs/100 WBC Differential Comment Toxic Granulation Toxic Vacuolation Platelet Estimate Platelet Morphology Dimorphic RBCs PT INR APTT 39.7 H Fibrinogen Sodium 143 Potassium 3.8 Chloride 111 H Carbon Dioxide 20.1 L Anion Gap 12 BUN 28 H Creatinine 1.52 H Estimated GFR 34 L Random Glucose 100 Lactic Acid 1.9 Calcium 6.9 L* Prot Corrected Calcium 7.8 L Phosphorus 4.8 Magnesium 1.8 Total Bilirubin 0.5 AST 24 ALT 11 Alkaline Phosphatase 119 H Ammonia Troponin I Total Protein 5.3 L D Albumin 1.0 L Lipase Nasal Screen MRSA (PCR) Stl C.difficile DNA Amp St C. diff Tox Epid 027 Blood Type Antibody Screen MTS Gel Crossmatch Blood Bank Comment - Imaging Impressions Chest X-Ray 07/16/18 22:25 CONCLUSION: Cardiomegaly. No acute pulmonary disease. Assessment and Plan - Plan Diverticulitis vs colitis with rectal bleeding - c.diff negative Pt needs colonoscopy but she is not agreable Leukocytosis, extreme bandemia - [place] 2/2 GI source cont zosyn further rec's to follow per clincial course and w/u results juan RN
[2018-07-17] MEDS: Piperacil/Tazo 3.375 GM Premix 50 ML IV.SIG SCH ×2 (16:05→22:00)
--- NOTE | 2018-07-17 18:01 | CT ---
EXAM DATE: 07/17/2018 5:18 PM EDT AGE/SEX: 72 years / Female INDICATIONS: Left lower quadrant pain. CLINICAL DATA: This is the patient's subsequent encounter. Patient reports that signs and symptoms h ave been present for 2 weeks and indicates a pain score of 6/10. MEDICAL/SURGICAL HISTORY: Renal disease. Hypertension. Gastroesophageal reflux disease. Uret eral stent, Morbid obesity, renal calculi . Cystoscopy, lithotripsy RADIATION DOSE: 25.87 CTDI (mGy) COMPARISON: [facility], CT ABDOMEN & PELVIS W/O CONTRAST, 06/29/2018. [facility], CT ABDOMEN & PELVIS W/O CONT RAST, 06/15/2018. . TECHNIQUE: Multiple contiguous axial images were obtained through the abdomen. Images were obtained using multiple row detector helical technique. Using automated exposure control and adjustment of the mA and/or kV according to patient size, radiation dose was kept as low as reasonably achievable to o btain optimal diagnostic quality images. DICOM format image data is available electronically for rev iew and comparison. FINDINGS: Lower Lungs: Posterior bibasilar atelectasis is noted. Liver: The liver has a homogeneous density without space-occupying lesion. There is no dilation of th e biliary tree. Cholelithiasis is noted. Spleen: Homogeneous density without enlargement. Pancreas: Unremarkable without mass or calcification. Kidneys: A right internal ureteral stent is noted in good position. No new hydronephrosis is noted. There are multiple calcified nonobstructing bilateral renal calculi which are stable. Left renal cys ts are stable. Adrenal Glands: Unremarkable. Aorta: The aorta and proximal iliac vessels are grossly unremarkable without aneurysmal dilation. Bowel/Mesentery: There is persistent pericolic inflammatory changes involving the distal transverse colon and descending colon consistent with acute diverticulitis or colitis. Abdominal Wall: Ventral abdominal wall hernia is noted and contains only fat. Retroperitoneum: No evidence of adenopathy in the retrocrural, para-aortic, or deep pelvic regions. Bladder: Contours are smooth. Reproductive Organs: No abnormal masses or calcifications seen. Inguinal: The inguinal region is unremarkable without evidence of adenopathy. Bony Structures: Degenerative changes and scoliosis of the thoracolumbar spine are noted. Severe ost eoarthritis and avascular necrosis of the right hip are noted. Soft tissues: Extensive subcutaneous fluid/edema is noted involving the left lateral abdominal wall a nd is worse than on the previous examination. CONCLUSION: 1. Persistent pericolic inflammatory changes involving the distal transverse colon and descending co coco consistent with acute diverticulitis or colitis. 2. Extensive subcutaneous fluid/edema is noted involving the left lateral abdominal wall and is wors e than on the previous examination. 3. Multiple calcified nonobstructing bilateral renal calculi. 4. Cholelithiasis. 5. Ventral abdominal wall hernia containing only fat. 6. Degenerative changes and scoliosis of the thoracolumbar spine. 7. 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 8. Posterior bibasilar atelectasis. 9. Stable left renal cysts. Electronically signed by: Saw Champagne MD 07/17/2018 6:00 PM EDT
[2018-07-17 21:33] LABS: Bacteria,Urine Many /hpf; Bilirubin,Urine Negative (Negative); Clarity,Urine Turbid (Clear); Color,Urine Yellow (Yellw/Straw); Glucose,Urine (UA) Negative (Negative); Leukocyte Esterase,Urine Moderate (Negative); Nitrite,Urine Negative (Negative); Specific Gravity,Urine 1.013 (1.002-1.035); Squamous Epithelial Cell,Urine 24 /hpf (0-5); Transitional Epi Cells,Urine 4 /hpf
[2018-07-18 02:51] LABS: Baso % (Auto) 0.4 % (0.0-2.0); Eos # (Auto) 0.4 th/mm3 (0.0-0.4); Eos % (Auto) 3.8 % (0.0-4.0); Hematocrit 31.8 % (35.0-46.0); Hemoglobin 10.4 gm/dL (11.6-15.3); Lymph # (Auto) 0.8 th/mm3 (1.0-4.8); Lymph % (Auto) 6.9 % (9.0-44.0); Mean Corpuscular HGB Conc 32.7 % (32.0-36.0); Mean Corpuscular Volume 88.6 fL (80.0-100.0); Mean Platelet Volume 7.1 fL (7.0-11.0); Mono # (Auto) 0.4 th/mm3 (0.0-0.9); Mono % (Auto) 3.9 % (0.0-8.0); Neut # (Auto) 9.3 th/mm3 (1.8-7.7); Platelet Count 426 th/mm3 (150-450); Red Blood Count 3.59 mil/mm3 (4.00-5.30); Red Cell Distribution Width 15.5 % (11.6-17.2)
[2018-07-18 03:01] LABS: INR 1.4 Ratio
[2018-07-18 03:23] LABS: Albumin 1.2 g/dL (3.4-5.0); Calcium 6.9 mg/dL (8.5-10.1); Carbon Dioxide 22.2 meq/L (21.0-32.0); Potassium 3.5 meq/L (3.5-5.1); Total Protein 4.9 g/dL (6.4-8.2)
[2018-07-18 03:37] LABS: Eosinophils 3 % (0-4); Lymphocytes 3 % (9-44); Metamyelocytes 2 % (0-1); Myelocytes 1 % (0-0)
[2018-07-18 03:39] LABS: Platelet Estimate Normal (Normal); Platelet Morphology Normal (Normal); Toxic Granulation 1+; Toxic Vacuolation Present
[2018-07-18 03:41] LABS: Acanthocytes Occ
[2018-07-18] MEDS: Chlorhexidine Gluconate 2% 1 Pack (2 Cloths) TOPICAL SCH (03:49)
[2018-07-18] MEDS: Piperacil/Tazo 3.375 GM Premix 50 ML IV.SIG SCH ×4 (03:55→21:32)
[2018-07-18] MEDS ORDERED: Chlorhexidine Gluconate 2% 1 Pack (2 Cloths) TOPICAL PRN (04:00)
[2018-07-18] MEDS: Sod Chloride 0.9% Inj 1,000 ML IV.CONT SCH ×3 (05:52→21:35)
--- NOTE | 2018-07-18 07:38 | P.PNCC ---
Subjective Subjective Remarks/Hospital Course: 72-year-old female with past medical history of hypertension, hyperlipidemia, atrial fibrillation on chronic anti-coagulation with Eliquis. She recently was admitted to [facility] 06/30/18 with rectal bleeding. She required transfusion of 2 units packed red cells during that admission and subsequent hemoglobin trend was relatively stable.. CT abdomen and pelvis demonstrated diverticulitis versus colitis. She was treated with Levaquin and Flagyl. She was followed by gastroenterology who initially recommended endoscopy however after multiple discussions patient opted to defer on this and gastroenterology recommended follow-up endoscopy in 3-4 weeks as an outpatient. She also had obstructing right ureteral stone and underwent cystoscopy, lithotripsy and ureteral stent 07/06/[address] Amaya. She ultimately was discharged to [facility]. She had lab work that resulted today with hemoglobin of 7.5. She was hypotensive this afternoon with blood pressure in the 80s so repeat lab was drawn and hemoglobin was 6.5 so she was sent to [facility] for evaluation. There Dr. Cunnignham did a rectal exam and states the stool was brown with Hemoccult positive. Her hemoglobin is 7.0. Her blood pressure is 80s over 50s with heart rate in the 90s. She has been on metoprolol. She has been back on Eliquis and her last dose was at 9 AM on 07/16/18. She has had ongoing loose stools ever since discharge, usually 1-2 loose stools on average daily, and she was not aware of any blood or melena. She states she has decreased appetite over the last 2-3 days. Denies nausea or vomiting. Although she denied abdominal pain she did have left lower quadrant tenderness on examination. She is afebrile. White blood cell count is 12 with left shift. [facility]. Although packed red cells were ordered, she did not receive any at [facility]. Transfusing 2 units packed red cells now. 07/18: Lying in bed no acute distress no bleeding reported. Hemoglobin 10.4 today. Borderline hypotensive requiring Jose Antonio-Synephrine at 40 mcg/KG/MIN. IV albumin started for hypotension and severe hypoalbuminemia 1.2. Infectious disease following for sepsis from mild diverticulitis versus colitis. Apparently patient is refusing colonoscopy Objective Vital Signs / I&O: Vital Signs 07/17/18 08:00 07/17/18 09:00 07/17/18 10:00 Temperature 97.6 F 97.7 F Pulse Rate 106 H 98 H 98 H Respiratory Rate 16 20 19 Blood Pressure 91/52 L 80/51 L 91/54 L Pulse Oximetry 100 99 98 07/17/18 10:45 07/17/18 10:50 07/17/18 11:00 Temperature 97.7 F 97.7 F Pulse Rate 100 H 99 H 100 H Respiratory Rate 21 22 Blood Pressure 89/51 L 89/58 L Pulse Oximetry 100 100 07/17/18 11:13 07/17/18 12:00 07/17/18 12:47 Temperature 97.8 F 97.7 F 98 F Pulse Rate 101 H 107 H 110 H Respiratory Rate 23 23 Blood Pressure 88/55 L 102/60 82/56 L Pulse Oximetry 99 98 07/17/18 13:00 07/17/18 14:00 07/17/18 15:00 Temperature Pulse Rate 110 H 107 H 109 H Respiratory Rate 21 22 20 Blood Pressure 84/51 L 87/54 L 91/54 L Pulse Oximetry 98 98 98 07/17/18 16:00 07/17/18 17:00 07/17/18 18:00 Temperature 98.0 F Pulse Rate 103 H 103 H 103 H Respiratory Rate 17 17 22 Blood Pressure 91/50 L 92/51 L 98/55 L Pulse Oximetry 98 96 98 07/17/18 19:00 07/17/18 20:00 07/17/18 21:00 Temperature 97.9 F Pulse Rate 112 H 107 H 100 H Respiratory Rate 16 18 21 Blood Pressure 101/59 L 103/56 L 100/58 L Pulse Oximetry 99 99 98 07/17/18 21:35 07/17/18 22:00 07/17/18 23:00 Temperature Pulse Rate 98 H 94 H Respiratory Rate 21 20 Blood Pressure 96/54 L 95/53 L Pulse Oximetry 98 99 97 07/18/18 00:00 07/18/18 01:00 07/18/18 02:00 Temperature 98.2 F Pulse Rate 91 H 91 H 88 Respiratory Rate 16 16 15 Blood Pressure 95/50 L 91/54 L 94/55 L Pulse Oximetry 96 97 97 07/18/18 03:00 07/18/18 04:00 07/18/18 05:00 Temperature 98.3 F Pulse Rate 95 H 88 92 H Respiratory Rate 18 19 21 Blood Pressure 99/54 L 106/53 L 106/52 L Pulse Oximetry 97 98 99 07/18/18 06:00 Temperature Pulse Rate 91 H Respiratory Rate 22 Blood Pressure 99/58 L Pulse Oximetry 100 Intake & Output 07/17/18 07/18/18 07/18/18 18:59 06:59 18:59 Intake Total 501 / 501 1200 / 1200 Output Total 500 / 500 500 / 500 Balance 700 / 700 Weight 112 kg Intake: IV 501 / 501 1200 / 1200 Protonix Inj 80 MG In NS Inj 100 / 100 100 / 100 100 ML @ 10 mls/hr IV.CONT CONT [facility] Rx#:[id number] NS Inj 1,000 ML @ 70 mls/hr IV. 1000 / 1000 CONT .[id number] [facility] Rx#:[id number] Vitamin K Inj 10 MG In D5W Inj 51 / 51 50 ML @ 102 mls/hr IV.SIG ONCE ONE Rx#:[id number] Zosyn 3.375 GM Premix 50 ML @ 50 / 50 100 / 100 100 mls/hr IV.SIG Q6H [facility] Rx#: [id number] Rocephin Inj 1,000 MG In NS Inj 100 / 100 100 ML @ 200 mls/hr IV.SIG Q24H [facility] Rx#:[id number] Flagyl 500 MG Inj 100 ML @ 100 200 / 200 mls/hr IV.SIG Q8H [facility] Rx#: [id number] Intake (Blood Product) Amt 0 / 0 Plasma Thawed 5 Day Cp2d Unit 0 / 0 [id number] Output: Urine 500 / 500 500 / 500 Other: # Voids 2 Date of Last Bowel Movement 07/17/18 07/18/18 # Bowel Movements 1 3 Result Diagrams: 07/18/18 02:41 07/18/18 02:41 Objective Remarks: GENERAL: Chronically ill-appearing female, alert and interactive, generally weak. SKIN: Warm and dry. HEAD: Atraumatic. Normocephalic. EYES: Pupils equal and round. No scleral icterus. No injection or drainage. ENT: No nasal bleeding or discharge. Mucous membranes dry NECK: Trachea midline. No JVD. CARDIOVASCULAR: Irregularly irregular. No murmurs rubs or gallops. RESPIRATORY: No accessory muscle use. Clear to auscultation. Breath sounds equal bilaterally. On room air GASTROINTESTINAL: Abdomen obese, soft, mildly tender to palpation left lower quadrant. No rebound or guarding. MUSCULOSKELETAL: Extremities without clubbing, cyanosis. Trace to 1+ pedal edema. NEUROLOGICAL: Awake and alert. No obvious cranial nerve deficits. Normal speech. Generalized weakness without focal deficit. Assessment and Plan - Problem List (1) CKD (chronic kidney disease), stage III Code(s): N18.3 - Chronic kidney disease, stage 3 (moderate) Status: Acute (2) Diverticulitis Code(s): K57.92 - Diverticulitis of intestine, part unspecified, without perforation or abscess without bleeding Status: Acute (3) GI bleed Code(s): K92.2 - Gastrointestinal hemorrhage, unspecified Status: Acute (4) Hypotension due to blood loss Code(s): I95.89 - Other hypotension Status: Acute (5) Atrial fibrillation Code(s): I48.91 - Unspecified atrial fibrillation Status: Acute - Assessment and Plan Plan: NEURO: Lortab as needed for pain. Morphine as needed for breakthrough pain. Generalized weakness PT consult RESP: RA. IS q 1hour CV: Hypotension secondary to symptomatic anemia, sepsis Essential hypertension Hold aspirin 81 mg p.o. daily. Hold Eliquis 2.5 mg p.o. twice daily. Hold metoprolol 100 mg p.o. every 12 hours (last dose was 07/16 at 09:00) Hold Bumex 1 mg p.o. daily Transfuse as per below Jose Antonio-Synephrine titrate to maintain mean arterial pressure greater than 65 Troponin negative. Start IV albumin 25 g IV every 8 hours for 2 days Check cortisol level GI/HEME/ID: Acute diverticulitis Severe sepsis Her clinical symptoms are suggestive of acute diverticulitis with left lower quadrant tenderness and leukocytosis. Previous CT 06/[address] abdomen-Persistent pericolic inflammatory changes involving the distal transverse colon and descending colon consistent with acute diverticulitis or colitis. Extensive subcutaneous fluid/edema is noted involving the left lateral abdominal wall and is worse than on the previous examination. Check US to evaluate abdominal wall fluid collection Neg C diff. Continue Zosyn per ID Protonix 40 mg IV q12. Anemia and Heme + stools Transfuse 2 units PRBC, follow Hgb q6 hours. GI consult Coagulopathy Hold Eliquis, last dose 07/16 9 am. INR 1.9. Give Vitamin K 10 mg subcut, 2 units FFP. F/u coags and hgb, consider Kcentra if ongoing evidence of bleeding and coagulopathy however holding off as she clinically does not appear to have active hemorrhage. FEN/RENAL: RUDY overlying CKD stage III Monitor intake and output. Monitor creatinine. Monitor electrolytes and replace as indicated ENDO: Euglycemic PROPH: SCDs for DVT prophylaxis. No pharmacologic DVT prophylaxis at this time due to bleeding. Protonix as per above. ACCESS: Multiple peripheral IVs providing adequate access at this time. Patient is critically ill with symptomatic anemia and hypotension requiring transfusion, correction of coagulopathy, vasopressor. She is at high risk for further deterioration. She is also septic from Diverticulitis/Colitis. Will remain in [facility]. Critical care time 32 minutes exclusive of separately billable procedures Code Status: Full
--- NOTE | 2018-07-18 08:43 | US ---
EXAM DATE: 07/18/2018 12:00 AM EDT AGE/SEX: 73 years / Female INDICATIONS: Left lateral abdominal wall fluid collection versus edema seen on CT. CLINICAL DATA: This is the patient's subsequent encounter. Patient reports that signs and symptoms h ave been present for 1 day and indicates a pain score of 0/10. MEDICAL/SURGICAL HISTORY: . Atrial fibrillation. Chronic kidney disease, stage III. Gastroeso phageal reflux disease. Hyperlipidemia. Hypertension. Obesity. Urinary tract obstruction by kidne y stone. . Lithotripsy. Ureter stent. Cystoscopy. COMPARISON: Prior CT from 07/17/2018. FINDINGS: There is edema seen within the subcutaneous fat at the left lateral abdominal wall. A focal fluid collection is not seen. No focal mass is seen. CONCLUSION: Soft tissue edema. Electronically signed by: Elvis Daniels MD 07/18/2018 8:42 AM EDT
[2018-07-18 09:59] LABS: Magnesium 1.6 mg/dL (1.5-2.5); Phosphorus 4.3 mg/dL (2.5-4.9)
[2018-07-18] MEDS: Potassium Chloride 25 MEQ Effervescent Tablet PO PRN (10:27)
[2018-07-18] MEDS: Albumin Human 25% Inj 100 ML IV.SIG SCH ×2 (10:27→19:48)
[2018-07-18] MEDS: Magnesium Oxide 400 MG Tablet PO PRN (10:27)
[2018-07-18] MEDS: Pantoprazole Inj 40 MG Vial IV.PUSH SCH ×2 (10:28→21:32)
--- NOTE | 2018-07-18 12:22 | P.PNGI ---
Subjective Interval history: Patient resting comfortably and denies any noted bleeding that is obvious. Denies nausea or vomiting <Xochitl Oakes - Last Filed: 07/18/18 12:12> Physical Exam Vital signs: Vital Signs 07/17/18 12:47 07/17/18 13:00 07/17/18 14:00 Temperature 98 F Pulse Rate 110 H 110 H 107 H Respiratory Rate 23 21 22 Blood Pressure 82/56 L 84/51 L 87/54 L Pulse Oximetry 98 98 98 07/17/18 15:00 07/17/18 16:00 07/17/18 17:00 Temperature 98.0 F Pulse Rate 109 H 103 H 103 H Respiratory Rate 20 17 17 Blood Pressure 91/54 L 91/50 L 92/51 L Pulse Oximetry 98 98 96 07/17/18 18:00 07/17/18 19:00 07/17/18 20:00 Temperature 97.9 F Pulse Rate 103 H 112 H 107 H Respiratory Rate 22 16 18 Blood Pressure 98/55 L 101/59 L 103/56 L Pulse Oximetry 98 99 99 07/17/18 21:00 07/17/18 21:35 07/17/18 22:00 Temperature Pulse Rate 100 H 98 H Respiratory Rate 21 21 Blood Pressure 100/58 L 96/54 L Pulse Oximetry 98 98 99 07/17/18 23:00 07/18/18 00:00 07/18/18 01:00 Temperature 98.2 F Pulse Rate 94 H 91 H 91 H Respiratory Rate 20 16 16 Blood Pressure 95/53 L 95/50 L 91/54 L Pulse Oximetry 97 96 97 07/18/18 02:00 07/18/18 03:00 07/18/18 04:00 Temperature 98.3 F Pulse Rate 88 95 H 88 Respiratory Rate 15 18 19 Blood Pressure 94/55 L 99/54 L 106/53 L Pulse Oximetry 97 97 98 07/18/18 05:00 07/18/18 06:00 07/18/18 07:00 Temperature Pulse Rate 92 H 91 H 89 Respiratory Rate 21 22 20 Blood Pressure 106/52 L 99/58 L 95/56 L Pulse Oximetry 99 100 99 07/18/18 07:30 07/18/18 08:00 07/18/18 08:31 Temperature 98.5 F Pulse Rate 87 89 86 Respiratory Rate 26 H 22 33 H Blood Pressure 104/57 L 102/59 L 120/56 L Pulse Oximetry 100 99 100 07/18/18 09:00 07/18/18 09:30 07/18/18 10:00 Temperature Pulse Rate 88 115 H 85 Respiratory Rate 23 33 H 24 Blood Pressure 115/57 L 115/58 L 110/57 L Pulse Oximetry 100 99 100 07/18/18 10:31 07/18/18 11:00 07/18/18 11:30 Temperature Pulse Rate 115 H 91 H 81 Respiratory Rate 34 H 21 20 Blood Pressure 105/62 106/59 L 111/56 L Pulse Oximetry 100 100 100 Intake & Output 07/17/18 07/18/18 07/18/18 18:59 06:59 18:59 Intake Total 501 / 501 1200 / 1200 Output Total 500 / 500 500 / 500 Balance 700 / 700 Weight 112 kg Intake: IV 501 / 501 1200 / 1200 Protonix Inj 80 MG In NS Inj 100 / 100 100 / 100 100 ML @ 10 mls/hr IV.CONT CONT [facility] Rx#:[id number] NS Inj 1,000 ML @ 70 mls/hr IV. 1000 / 1000 CONT .[id number] [facility] Rx#:[id number] Vitamin K Inj 10 MG In D5W Inj 51 / 51 50 ML @ 102 mls/hr IV.SIG ONCE ONE Rx#:[id number] Zosyn 3.375 GM Premix 50 ML @ 50 / 50 100 / 100 100 mls/hr IV.SIG Q6H [facility] Rx#: [id number] Rocephin Inj 1,000 MG In NS Inj 100 / 100 100 ML @ 200 mls/hr IV.SIG Q24H [facility] Rx#:[id number] Flagyl 500 MG Inj 100 ML @ 100 200 / 200 mls/hr IV.SIG Q8H [facility] Rx#: [id number] Intake (Blood Product) Amt 0 / 0 Plasma Thawed 5 Day Cp2d Unit 0 / 0 [id number] Output: Urine 500 / 500 500 / 500 Other: # Voids 2 Date of Last Bowel Movement 07/17/18 07/18/18 07/18/18 # Bowel Movements 1 3 - Constitutional no acute distress - Routine HEENT Exam Head: Present: normocephalic - Routine Respiratory Exam Present: decreased breath sounds, CTA bilaterally. Absent: accessory muscle use - Routine Cardiovascular Exam Present: irregular rhythm Comments: Atrial fibrillation - Routine Abdominal Exam Present: soft, normoactive bowel sounds. Absent: tenderness, guarding, firm - Routine Extremities Exam Present: edema. Absent: cyanosis, clubbing - Routine Skin Exam Present: dry, warm - Routine Neurological Exam Present: alert, oriented X3 - Detailed Neurological Exam: Coma Scale Eye Opening: Spontaneous Verbal Response: Oriented Motor Response: Obey commands Marcelle Coma Scale Total: 15 - Routine Psychiatric Exam Present: normal affect, cooperative <Oakes,Xochitl - Last Filed: 07/18/18 12:12> Vital signs: Vital Signs 07/17/18 14:00 07/17/18 15:00 07/17/18 16:00 Temperature 98.0 F Pulse Rate 107 H 109 H 103 H Respiratory Rate 22 20 17 Blood Pressure 87/54 L 91/54 L 91/50 L Pulse Oximetry 98 98 98 07/17/18 17:00 07/17/18 18:00 07/17/18 19:00 Temperature Pulse Rate 103 H 103 H 112 H Respiratory Rate 17 22 16 Blood Pressure 92/51 L 98/55 L 101/59 L Pulse Oximetry 96 98 99 07/17/18 20:00 07/17/18 21:00 07/17/18 21:35 Temperature 97.9 F Pulse Rate 107 H 100 H Respiratory Rate 18 21 Blood Pressure 103/56 L 100/58 L Pulse Oximetry 99 98 98 07/17/18 22:00 07/17/18 23:00 07/18/18 00:00 Temperature 98.2 F Pulse Rate 98 H 94 H 91 H Respiratory Rate 21 20 16 Blood Pressure 96/54 L 95/53 L 95/50 L Pulse Oximetry 99 97 96 07/18/18 01:00 07/18/18 02:00 07/18/18 03:00 Temperature Pulse Rate 91 H 88 95 H Respiratory Rate 16 15 18 Blood Pressure 91/54 L 94/55 L 99/54 L Pulse Oximetry 97 97 97 07/18/18 04:00 07/18/18 05:00 07/18/18 06:00 Temperature 98.3 F Pulse Rate 88 92 H 91 H Respiratory Rate 19 21 22 Blood Pressure 106/53 L 106/52 L 99/58 L Pulse Oximetry 98 99 100 07/18/18 07:00 07/18/18 07:30 07/18/18 08:00 Temperature 98.5 F Pulse Rate 89 87 89 Respiratory Rate 20 26 H 22 Blood Pressure 95/56 L 104/57 L 102/59 L Pulse Oximetry 99 100 99 07/18/18 08:31 07/18/18 09:00 07/18/18 09:30 Temperature Pulse Rate 86 88 115 H Respiratory Rate 33 H 23 33 H Blood Pressure 120/56 L 115/57 L 115/58 L Pulse Oximetry 100 100 99 07/18/18 10:00 07/18/18 10:31 07/18/18 11:00 Temperature Pulse Rate 85 115 H 91 H Respiratory Rate 24 34 H 21 Blood Pressure 110/57 L 105/62 106/59 L Pulse Oximetry 100 100 100 07/18/18 11:30 Temperature Pulse Rate 81 Respiratory Rate 20 Blood Pressure 111/56 L Pulse Oximetry 100 Intake & Output 07/17/18 07/18/18 07/18/18 18:59 06:59 18:59 Intake Total 501 / 501 1200 / 1200 Output Total 500 / 500 500 / 500 Balance 700 / 700 Weight 112 kg Intake: IV 501 / 501 1200 / 1200 Protonix Inj 80 MG In NS Inj 100 / 100 100 / 100 100 ML @ 10 mls/hr IV.CONT CONT [place] Rx#:[id number] NS Inj 1,000 ML @ 70 mls/hr IV. 1000 / 1000 CONT .[id number] [facility] Rx#:[id number] Vitamin K Inj 10 MG In D5W Inj 51 / 51 50 ML @ 102 mls/hr IV.SIG ONCE ONE Rx#:[id number] Zosyn 3.375 GM Premix 50 ML @ 50 / 50 100 / 100 100 mls/hr IV.SIG Q6H [facility] Rx#: [id number] Rocephin Inj 1,000 MG In NS Inj 100 / 100 100 ML @ 200 mls/hr IV.SIG Q24H [facility] Rx#:[id number] Flagyl 500 MG Inj 100 ML @ 100 200 / 200 mls/hr IV.SIG Q8H [facility] Rx#: [id number] Intake (Blood Product) Amt 0 / 0 Plasma Thawed 5 Day Cp2d Unit 0 / 0 [id number] Output: Urine 500 / 500 500 / 500 Other: # Voids 2 Date of Last Bowel Movement 07/17/18 07/18/1807/18/18 # Bowel Movements 1 3 <Fausto Montanez - Last Filed: 07/18/18 13:09> Results - Labs CBC & Chem 7: 07/18/18 09:23 07/18/18 02:41 Laboratory Results - last 24 hr 07/17/18 07/17/18 07/17/18 01:10 07:00 20:06 WBC RBC Hgb 9.7 L Hct MCV MCH MCHC RDW Plt Count MPV Prelim Diff (Auto) Neut % (Auto) Lymph % (Auto) [place] % (Auto) Eos % (Auto) Baso % (Auto) Neut # (Auto) Lymph # (Auto) [place] # (Auto) Eos # (Auto) Baso # (Auto) WBC Differential Seg Neuts % (Manual) Band Neuts % (Manual) Lymphocytes % (Manual) Eosinophils % (Manual) Metamyelocytes % (Man) Myelocytes % (Man) Abs Neuts (Manual) Differential Comment Toxic Granulation Toxic Vacuolation Platelet Estimate Platelet Morphology Basophilic Stippling Acanthocytes (Spur) PT INR Sodium Potassium Chloride Carbon Dioxide Anion Gap BUN Creatinine Estimated GFR Random Glucose Lactic Acid Calcium Prot Corrected Calcium Phosphorus Magnesium Total Bilirubin AST ALT Alkaline Phosphatase Total Protein Albumin Cortisol Urine Color Urine Clarity Urine pH Ur Specific [place] Urine Protein Urine Glucose (UA) Urine Ketones Urine Occult Blood Urine Nitrate Urine Bilirubin Urine Urobilinogen Ur Leukocyte Esterase Urine RBC Urine WBC Urine WBC Clumps Ur Squamous Epith Cells Ur Transition Epith Cell Urine Bacteria Micro UA Comment Ur Microscopic Review Urine Culture Comments Stl C.difficile DNA Amp Negative St C. diff Tox Epid 027 Negative Blood Bank Comment 07/17/18 07/18/18 07/18/18 20:35 02:41 02:41 WBC 11.0 RBC 3.59 L Hgb 10.4 L Hct 31.8 L MCV 88.6 MCH 29.0 MCHC 32.7 RDW 15.5 Plt Count 426 MPV 7.1 Prelim Diff (Auto) Slide review pending Neut % (Auto) 85.0 H Lymph % (Auto) 6.9 L [place] % (Auto) 3.9 Eos % (Auto) 3.8 Baso % (Auto) 0.4 Neut # (Auto) 9.3 H Lymph # (Auto) 0.8 L [place] # (Auto) 0.4 Eos # (Auto) 0.4 Baso # (Auto) 0.0 WBC Differential Manual diff final Seg Neuts % (Manual) 79 H Band Neuts % (Manual) 12 H Lymphocytes % (Manual) 3 L Eosinophils % (Manual) 3 Metamyelocytes % (Man) 2 H Myelocytes % (Man) 1 H Abs Neuts (Manual) 10.3 H Differential Comment . Toxic Granulation 1+ H Toxic Vacuolation Present H Platelet Estimate Normal Platelet Morphology Normal Basophilic Stippling Faint H Acanthocytes (Spur) Occ H PT 14.0 H INR 1.4 Sodium Potassium Chloride Carbon Dioxide Anion Gap BUN Creatinine Estimated GFR Random Glucose Lactic Acid Calcium Prot Corrected Calcium Phosphorus Magnesium Total Bilirubin AST ALT Alkaline Phosphatase Total Protein Albumin Cortisol Urine Color Yellow Urine Clarity Turbid H Urine pH 5.0 Ur Specific [place] 1.013 Urine Protein 100 H Urine Glucose (UA) Negative Urine Ketones Negative Urine Occult Blood Large H Urine Nitrate Negative Urine Bilirubin Negative Urine Urobilinogen Less than 2 Ur Leukocyte Esterase Moderate H Urine RBC Urine WBC Urine WBC Clumps Many H Ur Squamous Epith Cells 24 Ur Transition Epith Cell 4 Urine Bacteria Many H Micro UA Comment Cath-culture ind Ur Microscopic Review Not Reportable Urine Culture Comments Cath-cult indicated Stl C.difficile DNA Amp St C. diff Tox Epid 027 Blood Bank Comment 07/18/18 07/18/18 07/18/18 02:41 09:23 09:23 WBC RBC Hgb 9.9 L Hct MCV MCH MCHC RDW Plt Count MPV Prelim Diff (Auto) Neut % (Auto) Lymph % (Auto) [place] % (Auto) Eos % (Auto) Baso % (Auto) Neut # (Auto) Lymph # (Auto) [place] # (Auto) Eos # (Auto) Baso # (Auto) WBC Differential Seg Neuts % (Manual) Band Neuts % (Manual) Lymphocytes % (Manual) Eosinophils % (Manual) Metamyelocytes % (Man) Myelocytes % (Man) Abs Neuts (Manual) Differential Comment Toxic Granulation Toxic Vacuolation Platelet Estimate Platelet Morphology Basophilic Stippling Acanthocytes (Spur) PT INR Sodium 146 H Potassium 3.5 Chloride 113 H Carbon Dioxide 22.2 Anion Gap 11 BUN 26 H Creatinine 1.41 H Estimated GFR 37 L Random Glucose 75 Lactic Acid Calcium 6.9 L* Prot Corrected Calcium 8.1 L Phosphorus Magnesium Total Bilirubin 0.7 AST 25 ALT 12 Alkaline Phosphatase 158 H Total Protein 4.9 L Albumin 1.2 L Cortisol 21.8 Urine Color Urine Clarity Urine pH Ur Specific [place] Urine Protein Urine Glucose (UA) Urine Ketones Urine Occult Blood Urine Nitrate Urine Bilirubin Urine Urobilinogen Ur Leukocyte Esterase Urine RBC Urine WBC Urine WBC Clumps Ur Squamous Epith Cells Ur Transition Epith Cell Urine Bacteria Micro UA Comment Ur Microscopic Review Urine Culture Comments Stl C.difficile DNA Amp St C. diff Tox Epid 027 Blood Bank Comment 07/18/18 07/18/18 09:23 09:23 WBC RBC Hgb Hct MCV MCH MCHC RDW Plt Count MPV Prelim Diff (Auto) Neut % (Auto) Lymph % (Auto) [place] % (Auto) Eos % (Auto) Baso % (Auto) Neut # (Auto) Lymph # (Auto) [place] # (Auto) Eos # (Auto) Baso # (Auto) WBC Differential Seg Neuts % (Manual) Band Neuts % (Manual) Lymphocytes % (Manual) Eosinophils % (Manual) Metamyelocytes % (Man) Myelocytes % (Man) Abs Neuts (Manual) Differential Comment Toxic Granulation Toxic Vacuolation Platelet Estimate Platelet Morphology Basophilic Stippling Acanthocytes (Spur) PT INR Sodium Potassium Chloride Carbon Dioxide Anion Gap BUN Creatinine Estimated GFR Random Glucose Lactic Acid 1.4 Calcium Prot Corrected Calcium Phosphorus 4.3 Magnesium 1.6 Total Bilirubin AST ALT Alkaline Phosphatase Total Protein Albumin Cortisol Urine Color Urine Clarity Urine pH Ur Specific [place] Urine Protein Urine Glucose (UA) Urine Ketones Urine Occult Blood Urine Nitrate Urine Bilirubin Urine Urobilinogen Ur Leukocyte Esterase Urine RBC Urine WBC Urine WBC Clumps Ur Squamous Epith Cells Ur Transition Epith Cell Urine Bacteria Micro UA Comment Ur Microscopic Review Urine Culture Comments Stl C.difficile DNA Amp St C. diff Tox Epid 027 Blood Bank Comment Microbiology 07/17/18 11:03 Blood - Peripheral Aerobic Blood Culture - Preliminary No growth in 1 day 07/17/18 11:03 Blood - Peripheral Anaerobic Blood Culture - Preliminary No growth in 1 day 07/17/18 11:09 Blood - Peripheral Aerobic Blood Culture - Preliminary No growth in 1 day 07/17/18 11:09 Blood - Peripheral Anaerobic Blood Culture - Preliminary No growth in 1 day - Imaging Impressions Abdomen/Pelvis CT 07/17/18 00:00 CONCLUSION: 1. Persistent pericolic inflammatory changes involving the distal transverse colon and descending colon consistent with acute diverticulitis or colitis. 2. Extensive subcutaneous fluid/edema is noted involving the left lateral abdominal wall and is worse than on the previous examination. 3. Multiple calcified nonobstructing bilateral renal calculi. 4. Cholelithiasis. 5. Ventral abdominal wall hernia containing only fat. 6. Degenerative changes and scoliosis of the thoracolumbar spine. 7. 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 8. Posterior bibasilar atelectasis. 9. Stable left renal cysts. Abdomen Ultrasound 07/18/18 00:00 CONCLUSION: Soft tissue edema. <Xochitl Oakes - Last Filed: 07/18/18 12:12> - Labs CBC & Chem 7: 07/18/18 09:23 07/18/18 02:41 Laboratory Results - last 24 hr 07/17/18 07/17/18 07/17/18 01:10 07:00 20:06 WBC RBC Hgb 9.7 L Hct MCV MCH MCHC RDW Plt Count MPV Prelim Diff (Auto) Neut % (Auto) Lymph % (Auto) [place] % (Auto) Eos % (Auto) Baso % (Auto) Neut # (Auto) Lymph # (Auto) [place] # (Auto) Eos # (Auto) Baso # (Auto) WBC Differential Seg Neuts % (Manual) Band Neuts % (Manual) Lymphocytes % (Manual) Eosinophils % (Manual) Metamyelocytes % (Man) Myelocytes % (Man) Abs Neuts (Manual) Differential Comment Toxic Granulation Toxic Vacuolation Platelet Estimate Platelet Morphology Basophilic Stippling Acanthocytes (Spur) PT INR Sodium Potassium Chloride Carbon Dioxide Anion Gap BUN Creatinine Estimated GFR Random Glucose Lactic Acid Calcium Prot Corrected Calcium Phosphorus Magnesium Total Bilirubin AST ALT Alkaline Phosphatase Total Protein Albumin Cortisol Urine Color Urine Clarity Urine pH Ur Specific [place] Urine Protein Urine Glucose (UA) Urine Ketones Urine Occult Blood Urine Nitrate Urine Bilirubin Urine Urobilinogen Ur Leukocyte Esterase Urine RBC Urine WBC Urine WBC Clumps Ur Squamous Epith Cells Ur Transition Epith Cell Urine Bacteria Micro UA Comment Ur Microscopic Review Urine Culture Comments Stl C.difficile DNA Amp Negative St C. diff Tox Epid 027 Negative Blood Bank Comment 07/17/18 07/18/18 07/18/18 20:35 02:41 02:41 WBC 11.0 RBC 3.59 L Hgb 10.4 L Hct 31.8 L MCV 88.6 MCH 29.0 MCHC 32.7 RDW 15.5 Plt Count 426 MPV 7.1 Prelim Diff (Auto) Slide review pending Neut % (Auto) 85.0 H Lymph % (Auto) 6.9 L [place] % (Auto) 3.9 Eos % (Auto) 3.8 Baso % (Auto) 0.4 Neut # (Auto) 9.3 H Lymph # (Auto) 0.8 L [place] # (Auto) 0.4 Eos # (Auto) 0.4 Baso # (Auto) 0.0 WBC Differential Manual diff final Seg Neuts % (Manual) 79 H Band Neuts % (Manual) 12 H Lymphocytes % (Manual) 3 L Eosinophils % (Manual) 3 Metamyelocytes % (Man) 2 H Myelocytes % (Man) 1 H Abs Neuts (Manual) 10.3 H Differential Comment . Toxic Granulation 1+ H Toxic Vacuolation Present H Platelet Estimate Normal Platelet Morphology Normal Basophilic Stippling Faint H Acanthocytes (Spur) Occ H PT 14.0 H INR 1.4 Sodium Potassium Chloride Carbon Dioxide Anion Gap BUN Creatinine Estimated GFR Random Glucose Lactic Acid Calcium Prot Corrected Calcium Phosphorus Magnesium Total Bilirubin AST ALT Alkaline Phosphatase Total Protein Albumin Cortisol Urine Color Yellow Urine Clarity Turbid H Urine pH 5.0 Ur Specific [place] 1.013 Urine Protein 100 H Urine Glucose (UA) Negative Urine Ketones Negative Urine Occult Blood Large H Urine Nitrate Negative Urine Bilirubin Negative Urine Urobilinogen Less than 2 Ur Leukocyte Esterase Moderate H Urine RBC Urine WBC Urine WBC Clumps Many H Ur Squamous Epith Cells 24 Ur Transition Epith Cell 4 Urine Bacteria Many H Micro UA Comment Cath-culture ind Ur Microscopic Review Not Reportable Urine Culture Comments Cath-cult indicated Stl C.difficile DNA Amp St C. diff Tox Epid 027 Blood Bank Comment 07/18/18 07/18/18 07/18/18 02:41 09:23 09:23 WBC RBC Hgb 9.9 L Hct MCV MCH MCHC RDW Plt Count MPV Prelim Diff (Auto) Neut % (Auto) Lymph % (Auto) [place] % (Auto) Eos % (Auto) Baso % (Auto) Neut # (Auto) Lymph # (Auto) [place] # (Auto) Eos # (Auto) Baso # (Auto) WBC Differential Seg Neuts % (Manual) Band Neuts % (Manual) Lymphocytes % (Manual) Eosinophils % (Manual) Metamyelocytes % (Man) Myelocytes % (Man) Abs Neuts (Manual) Differential Comment Toxic Granulation Toxic Vacuolation Platelet Estimate Platelet Morphology Basophilic Stippling Acanthocytes (Spur) PT INR Sodium 146 H Potassium 3.5 Chloride 113 H Carbon Dioxide 22.2 Anion Gap 11 BUN 26 H Creatinine 1.41 H Estimated GFR 37 L Random Glucose 75 Lactic Acid Calcium 6.9 L* Prot Corrected Calcium 8.1 L Phosphorus Magnesium Total Bilirubin 0.7 AST 25 ALT 12 Alkaline Phosphatase 158 H Total Protein 4.9 L Albumin 1.2 L Cortisol 21.8 Urine Color Urine Clarity Urine pH Ur Specific [place] Urine Protein Urine Glucose (UA) Urine Ketones Urine Occult Blood Urine Nitrate Urine Bilirubin Urine Urobilinogen Ur Leukocyte Esterase Urine RBC Urine WBC Urine WBC Clumps Ur Squamous Epith Cells Ur Transition Epith Cell Urine Bacteria Micro UA Comment Ur Microscopic Review Urine Culture Comments Stl C.difficile DNA Amp St C. diff Tox Epid 027 Blood Bank Comment 07/18/18 07/18/18 09:23 09:23 WBC RBC Hgb Hct MCV MCH MCHC RDW Plt Count MPV Prelim Diff (Auto) Neut % (Auto) Lymph % (Auto) [place] % (Auto) Eos % (Auto) Baso % (Auto) Neut # (Auto) Lymph # (Auto) [place] # (Auto) Eos # (Auto) Baso # (Auto) WBC Differential Seg Neuts % (Manual) Band Neuts % (Manual) Lymphocytes % (Manual) Eosinophils % (Manual) Metamyelocytes % (Man) Myelocytes % (Man) Abs Neuts (Manual) Differential Comment Toxic Granulation Toxic Vacuolation Platelet Estimate Platelet Morphology Basophilic Stippling Acanthocytes (Spur) PT INR Sodium Potassium Chloride Carbon Dioxide Anion Gap BUN Creatinine Estimated GFR Random Glucose Lactic Acid 1.4 Calcium Prot Corrected Calcium Phosphorus 4.3 Magnesium 1.6 Total Bilirubin AST ALT Alkaline Phosphatase Total Protein Albumin Cortisol Urine Color Urine Clarity Urine pH Ur Specific [place] Urine Protein Urine Glucose (UA) Urine Ketones Urine Occult Blood Urine Nitrate Urine Bilirubin Urine Urobilinogen Ur Leukocyte Esterase Urine RBC Urine WBC Urine WBC Clumps Ur Squamous Epith Cells Ur Transition Epith Cell Urine Bacteria Micro UA Comment Ur Microscopic Review Urine Culture Comments Stl C.difficile DNA Amp St C. diff Tox Epid 027 Blood Bank Comment Microbiology 07/17/18 11:03 Blood - Peripheral Aerobic Blood Culture - Preliminary No growth in 1 day 07/17/18 11:03 Blood - Peripheral Anaerobic Blood Culture - Preliminary No growth in 1 day 07/17/18 11:09 Blood - Peripheral Aerobic Blood Culture - Preliminary No growth in 1 day 07/17/18 11:09 Blood - Peripheral Anaerobic Blood Culture - Preliminary No growth in 1 day - Imaging Impressions Abdomen/Pelvis CT 07/17/18 00:00 CONCLUSION: 1. Persistent pericolic inflammatory changes involving the distal transverse colon and descending colon consistent with acute diverticulitis or colitis. 2. Extensive subcutaneous fluid/edema is noted involving the left lateral abdominal wall and is worse than on the previous examination. 3. Multiple calcified nonobstructing bilateral renal calculi. 4. Cholelithiasis. 5. Ventral abdominal wall hernia containing only fat. 6. Degenerative changes and scoliosis of the thoracolumbar spine. 7. 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 8. Posterior bibasilar atelectasis. 9. Stable left renal cysts. Abdomen Ultrasound 07/18/18 00:00 CONCLUSION: Soft tissue edema. <Fausto Montanez - Last Filed: 07/18/18 13:09> Assessment and Plan - Plan obese 72-year-old female who was just discharged from the hospital on 07/11/2018 and seen per gastroenterology. patient also had obstructing ureteral stone and underwent cystoscopy and was set up for lithotripsy as an outpatient after discharge. Patient also was treated for diverticulitis per CT scan last admission and treated with Levaquin and Flagyl during her hospital stay patient was refusing to have any GI procedures including EGD or colonoscopy. Patient has never had either test done before and still is stating no EGD or colonoscopy to be done. Patient's currently being monitored in the intensive care setting with hypotension, current BP 91/54, tachycardia heart rate 102 and does appear weak, fatigued, and pale. Current hemoglobin is 7, PT/INR 1.9, bilirubin LFTs are normal, magnesium did decreased at 1.4, lipase 47, ammonia 11. Patient is a poor historian and is unaware if she has had any melena stools but does note chronic diarrhea at home unknown number of stools daily, 1- 2 noted on the record. According to the record Hemoccult was positive in the emergency room and stool was brown. Currently patient denies any type of abdominal pain no nausea no vomiting but does note some decreased appetite. Gastroenterology was consulted to assist in her symptom management and plan of care but it is noted that patient is refusing EGD or colonoscopy last admission as well as this admission. GI bleed, unknown source of bleeding except positive Hemoccult but could be related to Eliquis. Stools are brown Symptomatic anemia hemoglobin 7 post transfusion recent hemoglobin 10 0.9., Monitoring symptoms in the intensive care setting of hypotension, tachycardia, weakness and dizziness history of atrial fibrillation, current heart rate 102. Currently has Protonix drip infusing. No obvious bright red bleeding. Chronic diarrhea could be related to patient's overall comorbidity, Eliquis probable and/or other medications. Recent history of diverticulitis Hypomagnesemia, per attending Patient is refusing EGD and colonoscopy and also refused this past recent admission. Discussed with her other options which could be bleeding scan, but since patient sees no obvious blood bleeding , may be microscopic. Repeat hemoglobin 10.9 after transfusion, Eliquis is on hold. Discussed with patient past admission that she is very high risk for GI bleed with Eliquis. 07/18/18-no obvious signs of bleeding noted. Hemoglobin 10.4 hematocrit 31.8 platelet count 426. Eliquis on hold. Hemoglobin stable at this time posttransfusion. Will advance diet and continue to monitor. BM x3 as noted per documentation. Plan: -Regular diet as tolerated -Continue to monitor labs-hemoglobin stable at this time -Monitor for bleeding-no active bleeding at this time -Continue to hold Eliquis -Pantoprazole 40 mg IV every 12 hours -Supportive care -Further recommendations to follow based on findings This patient has been seen by myself and Dr. Montanez and this note is written on his behalf - Attending Attestation Dr. Montanez <Xochitl Oakes - Last Filed: 07/18/18 12:12> - Plan Seen and examined with [facility], no bleeding. H/H stable. Does not want any gi testing. GI will sign off, reconsult as needed. Thank you The exam, history, and the medical decision-making described in the above note were completed with the assistance of the mid-level provider. I reviewed and agree with the findings presented. I attest that I had a [id number] encounter with the patient on the same day, and personally performed and documented my assessment and findings in the medical record. <Fausto Montanez - Last Filed: 07/18/18 13:09>
--- NOTE | 2018-07-18 16:31 | P.PNID ---
Subjective Remarks: feeling better UA abnormal, clx P afebrile GFR improving Antibiotics: zosyn Allergies/Adverse Reactions: Allergies erythromycin base Allergy (Verified 07/16/18 22:20) Diarrhea Objective Vital Signs 07/17/18 17:00 07/17/18 18:00 07/17/18 19:00 Temperature Pulse Rate 103 H 103 H 112 H Respiratory Rate 17 22 16 Blood Pressure 92/51 L 98/55 L 101/59 L Pulse Oximetry 96 98 99 07/17/18 20:00 07/17/18 21:00 07/17/18 21:35 Temperature 97.9 F Pulse Rate 107 H 100 H Respiratory Rate 18 21 Blood Pressure 103/56 L 100/58 L Pulse Oximetry 99 98 98 07/17/18 22:00 07/17/18 23:00 07/18/18 00:00 Temperature 98.2 F Pulse Rate 98 H 94 H 91 H Respiratory Rate 21 20 16 Blood Pressure 96/54 L 95/53 L 95/50 L Pulse Oximetry 99 97 96 07/18/18 01:00 07/18/18 02:00 07/18/18 03:00 Temperature Pulse Rate 91 H 88 95 H Respiratory Rate 16 15 18 Blood Pressure 91/54 L 94/55 L 99/54 L Pulse Oximetry 97 97 97 07/18/18 04:00 07/18/18 05:00 07/18/18 06:00 Temperature 98.3 F Pulse Rate 88 92 H 91 H Respiratory Rate 19 21 22 Blood Pressure 106/53 L 106/52 L 99/58 L Pulse Oximetry 98 99 100 07/18/18 07:00 07/18/18 07:30 07/18/18 08:00 Temperature 98.5 F Pulse Rate 89 87 89 Respiratory Rate 20 26 H 22 Blood Pressure 95/56 L 104/57 L 102/59 L Pulse Oximetry 99 100 99 07/18/18 08:31 07/18/18 09:00 07/18/18 09:30 Temperature Pulse Rate 86 88 115 H Respiratory Rate 33 H 23 33 H Blood Pressure 120/56 L 115/57 L 115/58 L Pulse Oximetry 100 100 99 07/18/18 10:00 07/18/18 10:31 07/18/18 11:00 Temperature Pulse Rate 85 115 H 91 H Respiratory Rate 24 34 H 21 Blood Pressure 110/57 L 105/62 106/59 L Pulse Oximetry 100 100 100 07/18/18 11:30 07/18/18 12:00 07/18/18 12:30 Temperature Pulse Rate 81 83 101 H Respiratory Rate 20 16 27 H Blood Pressure 111/56 L 101/59 L 108/58 L Pulse Oximetry 100 100 98 07/18/18 13:00 07/18/18 13:30 07/18/18 14:00 Temperature Pulse Rate 92 H 112 H 100 H Respiratory Rate 19 41 H 21 Blood Pressure 105/59 L 111/64 Pulse Oximetry 99 98 99 07/18/18 14:01 07/18/18 14:30 07/18/18 15:00 Temperature Pulse Rate 104 H 98 H 93 H Respiratory Rate 19 24 22 Blood Pressure 108/57 L 98/54 L 95/64 L Pulse Oximetry 100 99 100 07/18/18 15:30 07/18/18 16:00 Temperature Pulse Rate 100 H 93 H Respiratory Rate 27 H 23 Blood Pressure 101/53 L 103/55 L Pulse Oximetry 97 99 Intake & Output 07/17/18 07/18/18 07/18/18 18:59 06:59 18:59 Intake Total 501 / 501 1200 / 1200 Output Total 500 / 500 500 / 500 Balance 700 / 700 Weight 112 kg Intake: IV 501 / 501 1200 / 1200 Protonix Inj 80 MG In NS Inj 100 / 100 100 / 100 100 ML @ 10 mls/hr IV.CONT CONT [facility] Rx#:[id number] NS Inj 1,000 ML @ 70 mls/hr IV. 1000 / 1000 CONT .[id number] [facility] Rx#:[id number] Vitamin K Inj 10 MG In D5W Inj 51 / 51 50 ML @ 102 mls/hr IV.SIG ONCE ONE Rx#:[id number] Zosyn 3.375 GM Premix 50 ML @ 50 / 50 100 / 100 100 mls/hr IV.SIG Q6H [facility] Rx#: [id number] Rocephin Inj 1,000 MG In NS Inj 100 / 100 100 ML @ 200 mls/hr IV.SIG Q24H [facility] Rx#:[id number] Flagyl 500 MG Inj 100 ML @ 100 200 / 200 mls/hr IV.SIG Q8H [facility] Rx#: [id number] Intake (Blood Product) Amt 0 / 0 Plasma Thawed 5 Day Cp2d Unit 0 / 0 [id number] Output: Urine 500 / 500 500 / 500 Other: # Voids 2 Date of Last Bowel Movement 07/17/18 07/18/18 07/18/18 # Bowel Movements 1 3 07/17/18 20:35 Clean Catch Urine Urine Culture - Preliminary Immature growth - reincubate 07/17/18 11:03 Blood - Peripheral Aerobic Blood Culture - Preliminary No growth in 1 day 07/17/18 11:03 Blood - Peripheral Anaerobic Blood Culture - Preliminary No growth in 1 day 07/17/18 11:09 Blood - Peripheral Aerobic Blood Culture - Preliminary No growth in 1 day 07/17/18 11:09 Blood - Peripheral Anaerobic Blood Culture - Preliminary No growth in 1 day Lab - Hematology Results 07/16/18 07/17/18 07/17/18 22:40 08:27 11:09 CBC w Diff Slide review pending WBC 12.1 H 13.7 H RBC 2.46 L 3.75 L Hgb 7.0 L 10.6 L D 10.9 L Hct 21.5 L 32.8 L MCV 87.5 87.4 MCH 28.7 29.0 MCHC 32.8 33.2 RDW 15.4 15.8 Plt Count 531 H D 533 H MPV 7.9 7.3 Prelim Diff (Auto) Slide review pending Neut % (Auto) 87.7 H 93.6 H Lymph % (Auto) 6.6 L 2.9 L Verm[place] % (Auto) 3.9 2.0 Eos % (Auto) 1.0 1.4 Baso % (Auto) 0.8 0.1 Neut # (Auto) 10.6 H 12.8 H Lymph # (Auto) 0.8 L 0.4 L [place] # (Auto) 0.5 0.3 Eos # (Auto) 0.1 0.2 Baso # (Auto) 0.1 0.0 WBC Differential Manual diff final Manual diff final Seg Neuts % (Manual) 46 46 Band Neuts % (Manual) 30 H 49 H Lymphocytes % (Manual) 4 L Monocytes % (Manual) 7 2 Eosinophils % (Manual) 2 2 Metamyelocytes % (Man) 11 H Myelocytes % (Man) Promyelocytes % (Man) 1 H Abs Neuts (Manual) 10.5 H 13.2 H Nucleated RBCs/100 WBC 1 H Differential Comment . . Toxic Granulation 2+ H Toxic Vacuolation Present H Present H Platelet Estimate High H High H Platelet Morphology Normal Clumped H Dimorphic RBCs Present H Basophilic Stippling Acanthocytes (Spur) 07/17/18 07/18/18 07/18/18 20:06 02:41 09:23 CBC w Diff WBC 11.0 RBC 3.59 L Hgb 9.7 L 10.4 L 9.9 L Hct 31.8 L MCV 88.6 MCH 29.0 MCHC 32.7 RDW 15.5 Plt Count 426 MPV 7.1 Prelim Diff (Auto) Slide review pending Neut % (Auto) 85.0 H Lymph % (Auto) 6.9 L Vermilion % (Auto) 3.9 Eos % (Auto) 3.8 Baso % (Auto) 0.4 Neut # (Auto) 9.3 H Lymph # (Auto) 0.8 L [place] # (Auto) 0.4 Eos # (Auto) 0.4 Baso # (Auto) 0.0 WBC Differential Manual diff final Seg Neuts % (Manual) 79 H Band Neuts % (Manual) 12 H Lymphocytes % (Manual) 3 L Monocytes % (Manual) Eosinophils % (Manual) 3 Metamyelocytes % (Man) 2 H Myelocytes % (Man) 1 H Promyelocytes % (Man) Abs Neuts (Manual) 10.3 H Nucleated RBCs/100 WBC Differential Comment . Toxic Granulation 1+ H Toxic Vacuolation Present H Platelet Estimate Normal Platelet Morphology Normal Dimorphic RBCs Basophilic Stippling Faint H Acanthocytes (Spur) Occ H 07/18/18 14:12 CBC w Diff WBC RBC Hgb 9.0 L Hct MCV MCH MCHC RDW Plt Count MPV Prelim Diff (Auto) Neut % (Auto) Lymph % (Auto) Vermilion % (Auto) Eos % (Auto) Baso % (Auto) Neut # (Auto) Lymph # (Auto) Vermilion # (Auto) Eos # (Auto) Baso # (Auto) WBC Differential Seg Neuts % (Manual) Band Neuts % (Manual) Lymphocytes % (Manual) Monocytes % (Manual) Eosinophils % (Manual) Metamyelocytes % (Man) Myelocytes % (Man) Promyelocytes % (Man) Abs Neuts (Manual) Nucleated RBCs/100 WBC Differential Comment Toxic Granulation Toxic Vacuolation Platelet Estimate Platelet Morphology Dimorphic RBCs Basophilic Stippling Acanthocytes (Spur) Lab - Chemistry Results 07/16/18 07/16/18 07/17/18 22:40 22:40 01:00 Sodium 140 Potassium 3.9 Chloride 110 H Carbon Dioxide 20.6 L Anion Gap 9 BUN 31 H Creatinine 1.60 H Estimated GFR 32 L Random Glucose 108 H Lactic Acid Calcium 6.8 L* Prot Corrected Calcium 8.1 L Phosphorus Magnesium 1.4 L Total Bilirubin 0.3 AST 30 ALT 11 Alkaline Phosphatase 96 Ammonia 11 Troponin I Less than 0.02 L Total Protein 4.7 L Albumin 0.9 L Lipase 47 L Cortisol 07/17/18 07/17/18 07/18/18 11:09 11:09 02:41 Sodium 143 146 H Potassium 3.8 3.5 Chloride 111 H 113 H Carbon Dioxide 20.1 L 22.2 Anion Gap 12 11 BUN 28 H 26 H Creatinine 1.52 H 1.41 H Estimated GFR 34 L 37 L Random Glucose 100 75 Lactic Acid 1.9 Calcium 6.9 L* 6.9 L* Prot Corrected Calcium 7.8 L 8.1 L Phosphorus 4.8 Magnesium 1.8 Total Bilirubin 0.5 0.7 AST 24 25 ALT 11 12 Alkaline Phosphatase 119 H 158 H Ammonia Troponin I Total Protein 5.3 L D 4.9 L Albumin 1.0 L 1.2 L Lipase Cortisol 07/18/18 07/18/18 07/18/18 09:23 09:23 09:23 Sodium Potassium Chloride Carbon Dioxide Anion Gap BUN Creatinine Estimated GFR Random Glucose Lactic Acid 1.4 Calcium Prot Corrected Calcium Phosphorus 4.3 Magnesium 1.6 Total Bilirubin AST ALT Alkaline Phosphatase Ammonia Troponin I Total Protein Albumin Lipase Cortisol 21.8 Imaging: ITS Impressions Chest X-Ray 07/16/18 22:25 CONCLUSION: Cardiomegaly. No acute pulmonary disease. Abdomen/Pelvis CT 07/17/18 00:00 CONCLUSION: 1. Persistent pericolic inflammatory changes involving the distal transverse colon and descending colon consistent with acute diverticulitis or colitis. 2. Extensive subcutaneous fluid/edema is noted involving the left lateral abdominal wall and is worse than on the previous examination. 3. Multiple calcified nonobstructing bilateral renal calculi. 4. Cholelithiasis. 5. Ventral abdominal wall hernia containing only fat. 6. Degenerative changes and scoliosis of the thoracolumbar spine. 7. 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 8. Posterior bibasilar atelectasis. 9. Stable left renal cysts. Abdomen Ultrasound 07/18/18 00:00 CONCLUSION: Soft tissue edema. Physical Exam: GENERAL: NAD SKIN: Warm and dry. HEAD: Atraumatic. Normocephalic. EYES: Pupils equal and round. No scleral icterus. No injection or drainage. ENT: No nasal bleeding or discharge. Mucous membranes pink and moist. NECK: Trachea midline. No JVD. CARDIOVASCULAR: Regular rate and rhythm. RESPIRATORY: No accessory muscle use. Clear to auscultation. Breath sounds equal bilaterally. GASTROINTESTINAL: Abdomen soft, minimally tender LLQ , nondistended. Hepatic and splenic margins not palpable. MUSCULOSKELETAL: Extremities without clubbing, cyanosis, much improved edema. No obvious deformities. NEUROLOGICAL: Awake and alert. No obvious cranial nerve deficits. Motor grossly within normal limits. Five out of 5 muscle strength in the arms and legs. Normal speech. PSYCHIATRIC: cqalm , coopertive Assessment and Plan - Plan Diverticulitis vs colitis with rectal bleeding - c.diff negative Pt needs colonoscopy but she is not agreable Leukocytosis, extreme bandemia - [place] 2/2 GI/ source QUite abnormal UA, clx P cont zosyn fu urine clx
[2018-07-19] MEDS: Albumin Human 25% Inj 100 ML IV.SIG SCH ×3 (01:25→18:42)
[2018-07-19] MEDS: Chlorhexidine Gluconate 2% 1 Pack (2 Cloths) TOPICAL SCH (04:29)
[2018-07-19] MEDS: Piperacil/Tazo 3.375 GM Premix 50 ML IV.SIG SCH ×4 (04:29→21:16)
[2018-07-19 04:55] LABS: Hematocrit 23.5 % (35.0-46.0); Hemoglobin 7.9 gm/dL (11.6-15.3); Mean Corpuscular HGB Conc 33.9 % (32.0-36.0); Mean Corpuscular Hemoglobin 29.9 pg (27.0-34.0); Mean Corpuscular Volume 88.4 fL (80.0-100.0); Mean Platelet Volume 7.1 fL (7.0-11.0); Platelet Count 343 th/mm3 (150-450); Red Blood Count 2.65 mil/mm3 (4.00-5.30); Red Cell Distribution Width 15.5 % (11.6-17.2); White Blood Count 7.1 th/mm3 (4.0-11.0)
[2018-07-19 05:16] LABS: Albumin 1.9 g/dL (3.4-5.0); Calcium 6.8 mg/dL (8.5-10.1); Magnesium 1.4 mg/dL (1.5-2.5); Potassium 3.1 meq/L (3.5-5.1); Total Protein 4.7 g/dL (6.4-8.2)
--- NOTE | 2018-07-19 05:39 | XR ---
EXAM DATE: 07/19/2018 6:00 AM EDT AGE/SEX: 73 years / Female INDICATIONS: Shortness of breath, possible pulmonary disease. CLINICAL DATA: This is the patient's subsequent encounter. Patient reports that signs and symptoms h ave been present for 3 days and indicates a pain score of 0/10. MEDICAL/SURGICAL HISTORY: . Atrial fibrillation. Chronic kidney disease, stage III. Gastroesop hageal reflux disease. Hyperlipidemia. Hypertension. Obesity. Urinary tract obstruction by kidney sto ne. . Lithotripsy. Ureter stent. Cystoscopy. COMPARISON: [facility], CHEST 1V SINGLE AP, 07/16/2018. . FINDINGS: Bibasilar infiltrates are present, more prominent on the left than the right likely with small associ ated effusion. Cardiac contours are satisfactory for technique and projection. CONCLUSION: Bilateral infiltrates Electronically signed by: Elvis Bravo MD 07/19/2018 5:38 AM EDT
[2018-07-19] MEDS: Magnesium Oxide 400 MG Tablet PO PRN (05:53)
[2018-07-19] MEDS: Potassium Chlor 20 mEq Premix 20 MEQ/100 ML PIGGYBACK IV.SIG PRN ×3 (06:01→10:00)
--- NOTE | 2018-07-19 09:24 | P.PNCC ---
Subjective Subjective Remarks/Hospital Course: 72-year-old female with past medical history of hypertension, hyperlipidemia, atrial fibrillation on chronic anti-coagulation with Eliquis. She recently was admitted to [facility] 06/30/18 with rectal bleeding. She required transfusion of 2 units packed red cells during that admission and subsequent hemoglobin trend was relatively stable.. CT abdomen and pelvis demonstrated diverticulitis versus colitis. She was treated with Levaquin and Flagyl. She was followed by gastroenterology who initially recommended endoscopy however after multiple discussions patient opted to defer on this and gastroenterology recommended follow-up endoscopy in 3-4 weeks as an outpatient. She also had obstructing right ureteral stone and underwent cystoscopy, lithotripsy and ureteral stent 07/06/[address] Amaya. She ultimately was discharged to [facility]. She had lab work that resulted today with hemoglobin of 7.5. She was hypotensive this afternoon with blood pressure in the 80s so repeat lab was drawn and hemoglobin was 6.5 so she was sent to [facility] for evaluation. There Dr. Cunningham did a rectal exam and states the stool was brown with Hemoccult positive. Her hemoglobin is 7.0. Her blood pressure is 80s over 50s with heart rate in the 90s. She has been on metoprolol. She has been back on Eliquis and her last dose was at 9 AM on 07/16/18. She has had ongoing loose stools ever since discharge, usually 1-2 loose stools on average daily, and she was not aware of any blood or melena. She states she has decreased appetite over the last 2-3 days. Denies nausea or vomiting. Although she denied abdominal pain she did have left lower quadrant tenderness on examination. She is afebrile. White blood cell count is 12 with left shift. She was transferred to [facility]. Although packed red cells were ordered, she did not receive any at [facility]. Transfusing 2 units packed red cells now. 07/18: Lying in bed no acute distress no bleeding reported. Hemoglobin 10.4 today. Borderline hypotensive requiring Jose Antonio-Synephrine at 40 mcg/KG/MIN. IV albumin started for hypotension and severe hypoalbuminemia 1.2. Infectious disease following for sepsis from mild diverticulitis versus colitis. Apparently patient is refusing colonoscopy 07/19: Weaned off Jose Antonio-Synephrine. Patient subjectively feels better. Hypotension seems to have improved. ID following. Hemoglobin is 7.9 today down from 9 could be dilutional. No evident GI bleed. Transfuse 1 unit PRBC Objective Vital Signs / I&O: Vital Signs 07/18/18 09:30 07/18/18 10:00 07/18/18 10:31 Temperature Pulse Rate 115 H 85 115 H Respiratory Rate 33 H 24 34 H Blood Pressure 115/58 L 110/57 L 105/62 Pulse Oximetry 99 100 100 07/18/18 11:00 07/18/18 11:30 07/18/18 12:00 Temperature Pulse Rate 91 H 81 83 Respiratory Rate 21 20 16 Blood Pressure 106/59 L 111/56 L 101/59 L Pulse Oximetry 100 100 100 07/18/18 12:30 07/18/18 13:00 07/18/18 13:30 Temperature Pulse Rate 101 H 92 H 112 H Respiratory Rate 27 H 19 41 H Blood Pressure 108/58 L 105/59 L 111/64 Pulse Oximetry 98 99 98 07/18/18 14:00 07/18/18 14:01 07/18/18 14:30 Temperature Pulse Rate 100 H 104 H 98 H Respiratory Rate 21 19 24 Blood Pressure 108/57 L 98/54 L Pulse Oximetry 99 100 99 07/18/18 15:00 07/18/18 15:30 07/18/18 16:00 Temperature Pulse Rate 93 H 100 H 93 H Respiratory Rate 22 27 H 23 Blood Pressure 95/64 L 101/53 L 103/55 L Pulse Oximetry 100 97 99 07/18/18 16:30 07/18/18 17:00 07/18/18 17:08 Temperature Pulse Rate 90 111 H 116 H Respiratory Rate 22 25 H 31 H Blood Pressure 99/51 L 123/56 L Pulse Oximetry 99 97 99 07/18/18 17:31 07/18/18 18:00 07/18/18 18:30 Temperature Pulse Rate 99 H 96 H 92 H Respiratory Rate 27 H 22 21 Blood Pressure 103/50 L 110/63 113/56 L Pulse Oximetry 100 100 100 07/18/18 19:00 07/18/18 19:30 07/18/18 20:00 Temperature 98.2 F Pulse Rate 93 H 97 H 165 H Respiratory Rate 21 26 H 34 H Blood Pressure 119/59 L 111/68 119/65 Pulse Oximetry 99 99 98 07/18/18 20:30 07/18/18 21:00 07/18/18 21:30 Temperature Pulse Rate 93 H 92 H 90 Respiratory Rate 21 22 19 Blood Pressure 119/60 123/59 L 115/60 Pulse Oximetry 98 98 98 07/18/18 22:00 07/18/18 22:30 07/18/18 23:00 Temperature Pulse Rate 115 H 102 H 93 H Respiratory Rate 21 20 19 Blood Pressure 113/83 123/61 124/62 Pulse Oximetry 97 98 99 07/18/18 23:21 07/18/18 23:30 07/19/18 00:00 Temperature 98 F Pulse Rate 108 H 91 H Respiratory Rate 20 22 Blood Pressure 130/63 122/57 L Pulse Oximetry 98 98 100 07/19/18 00:30 07/19/18 01:00 07/19/18 01:30 Temperature Pulse Rate 87 95 H 96 H Respiratory Rate 21 22 22 Blood Pressure 123/61 121/67 105/59 L Pulse Oximetry 100 99 99 07/19/18 01:40 07/19/18 01:50 07/19/18 02:00 Temperature Pulse Rate 91 H 94 H 98 H Respiratory Rate 21 21 20 Blood Pressure 121/58 L 117/59 L 111/53 L Pulse Oximetry 100 99 99 07/19/18 02:10 07/19/18 02:20 07/19/18 02:30 Temperature Pulse Rate 162 H 98 H 97 H Respiratory Rate 21 23 23 Blood Pressure 112/55 L 107/53 L 98/50 L Pulse Oximetry 99 98 97 07/19/18 02:40 07/19/18 02:50 07/19/18 03:00 Temperature Pulse Rate 103 H 101 H 99 H Respiratory Rate 26 H 21 19 Blood Pressure 103/51 L 106/51 L 105/55 L Pulse Oximetry 97 97 96 07/19/18 04:00 07/19/18 04:30 07/19/18 04:59 Temperature 97.8 F Pulse Rate 109 H 90 94 H Respiratory Rate 22 20 24 Blood Pressure 109/56 L 105/54 L Pulse Oximetry 100 99 99 07/19/18 05:00 07/19/18 05:30 07/19/18 06:00 Temperature Pulse Rate 96 H 94 H 95 H Respiratory Rate 21 21 23 Blood Pressure 104/55 L 104/55 L 107/55 L Pulse Oximetry 99 98 97 07/19/18 06:30 07/19/18 07:00 07/19/18 07:32 Temperature Pulse Rate 89 90 99 H Respiratory Rate 23 20 26 H Blood Pressure 109/53 L 107/56 L 81/51 L Pulse Oximetry 97 97 98 07/19/18 07:34 Temperature Pulse Rate 97 H Respiratory Rate 19 Blood Pressure 92/51 L Pulse Oximetry 98 Intake & Output 07/18/18 07/19/18 07/19/18 18:59 06:59 18:59 Intake Total 600 / 600 1900 / 1900 100 / 100 Output Total 300 / 300 350 / 350 Balance 300 / 300 1550 / 1550 100 / 100 Weight 111 kg Intake: IV 150 / 150 1300 / 1300 100 / 100 NS Inj 1,000 ML @ 70 mls/hr IV. 1000 / 1000 CONT .[id number] [facility] Rx#:[id number] Flexbumin 25% Inj 100 ML @ 60 100 / 100 200 / 200 mls/hr IV.SIG Q8H [facility] Rx#: [id number] Zosyn 3.375 GM Premix 50 ML @ 50 / 50 100 / 100 50 / 50 100 mls/hr IV.SIG Q6H [facility] Rx#: [id number] KCl 20 mEq Premix Inj 20 meq In 50 / 50 100 ml @ 50 mls/hr IV.SIG Q2H [facility] Rx#:[id number] Oral 450 / 450 600 / 600 Output: Urine 300 / 300 350 / 350 Other: # Voids 2 Date of Last Bowel Movement 07/18/18 07/19/18 # Bowel Movements 4 2 Result Diagrams: 07/19/18 04:05 07/19/18 04:05 Objective Remarks: GENERAL: Chronically ill-appearing female, alert and interactive, generally weak. SKIN: Warm and dry. HEAD: Atraumatic. Normocephalic. EYES: Pupils equal and round. No scleral icterus. No injection or drainage. ENT: No nasal bleeding or discharge. Mucous membranes dry NECK: Trachea midline. No JVD. CARDIOVASCULAR: Irregularly irregular. No murmurs rubs or gallops. RESPIRATORY: No accessory muscle use. Clear to auscultation. Breath sounds equal bilaterally. On room air GASTROINTESTINAL: Abdomen obese, soft, mildly tender to palpation left lower quadrant. No rebound or guarding. MUSCULOSKELETAL: Extremities without clubbing, cyanosis. Trace to 1+ pedal edema. NEUROLOGICAL: Awake and alert. No obvious cranial nerve deficits. Normal speech. Generalized weakness without focal deficit. Assessment and Plan - Problem List (1) CKD (chronic kidney disease), stage III Code(s): N18.3 - Chronic kidney disease, stage 3 (moderate) Status: Acute (2) Diverticulitis Code(s): K57.92 - Diverticulitis of intestine, part unspecified, without perforation or abscess without bleeding Status: Acute (3) GI bleed Code(s): K92.2 - Gastrointestinal hemorrhage, unspecified Status: Acute (4) Hypotension due to blood loss Code(s): I95.89 - Other hypotension Status: Acute (5) Atrial fibrillation Code(s): I48.91 - Unspecified atrial fibrillation Status: Acute - Assessment and Plan Plan: NEURO: Lortab as needed for pain. Morphine as needed for breakthrough pain. Generalized weakness PT consult RESP: RA. IS q 1hour CV: Hypotension secondary to symptomatic anemia, sepsis-Resolved Essential hypertension Hold aspirin 81 mg p.o. daily. Hold Eliquis 2.5 mg p.o. twice daily. Hold metoprolol 100 mg p.o. every 12 hours (last dose was 07/16 at 09:00) Hold Bumex 1 mg p.o. daily Transfuse as per below Jose Antonio-Synephrine titrate to maintain mean arterial pressure greater than 65, now weaned off Troponin negative. Continue IV albumin 25 g IV every 8 hours for total 2 days GI/HEME/ID: Acute diverticulitis Severe sepsis Her clinical symptoms are suggestive of acute diverticulitis with left lower quadrant tenderness and leukocytosis. Previous CT 06/[address] abdomen-Persistent pericolic inflammatory changes involving the distal transverse colon and descending colon consistent with acute diverticulitis or colitis. Extensive subcutaneous fluid/edema is noted involving the left lateral abdominal wall and is worse than on the previous examination. US to evaluate abdominal wall fluid collection-showed subcutaneous edema Neg C diff. Continue Zosyn per ID Protonix 40 mg IV q12. Anemia and Heme + stools Transfuse 1 unit additional PRBC today GI following. Patient refuses colonoscopy Coagulopathy Holding Eliquis, last dose 07/16 9 am. s/p Vitamin K 10 mg subcut, 2 units FFP. F /u coags and hgb, -Kcentra held off as pt clinically does not appear to have active hemorrhage. FEN/RENAL: RUDY overlying CKD stage III Monitor intake and output. Monitor creatinine. Monitor electrolytes and replace as indicated IV NS 70 ml per hour ENDO: Euglycemic PROPH: SCDs for DVT prophylaxis. No pharmacologic DVT prophylaxis at this time due to bleeding. Protonix as per above. ACCESS: Multiple peripheral IVs providing adequate access at this time. Level Consult hospitalist to assume care in a.m. 07/20/18 Code Status: Full
[2018-07-19] MEDS ORDERED: Sodium Chlor 0.9% Inj 250 ML IV.SIG SCH (10:00)
[2018-07-19] MEDS: Sod Chloride 0.9% Inj 1,000 ML IV.CONT SCH ×2 (11:01→18:41)
[2018-07-19] MEDS: Pantoprazole Inj 40 MG Vial IV.PUSH SCH ×2 (11:01→21:17)
[2018-07-19] MEDS ORDERED: Vancomycin Consult Pharmacy OTHER PRN (21:31)
--- NOTE | 2018-07-19 21:32 | P.PNID ---
Subjective Remarks: feeling better UA abnormal, clx + for MRSA afebrile GFR improving receiving blood transfusiona pt considereing colonoscopy Antibiotics: zosyn Allergies/Adverse Reactions: Allergies erythromycin base Allergy (Verified 07/16/18 22:20) Diarrhea Objective Vital Signs 07/18/18 22:00 07/18/18 22:30 07/18/18 23:00 Temperature Pulse Rate 115 H 102 H 93 H Respiratory Rate 21 20 19 Blood Pressure 113/83 123/61 124/62 Pulse Oximetry 97 98 99 07/18/18 23:21 07/18/18 23:30 07/19/18 00:00 Temperature 98 F Pulse Rate 108 H 91 H Respiratory Rate 20 22 Blood Pressure 130/63 122/57 L Pulse Oximetry 98 98 100 07/19/18 00:30 07/19/18 01:00 07/19/18 01:30 Temperature Pulse Rate 87 95 H 96 H Respiratory Rate 21 22 22 Blood Pressure 123/61 121/67 105/59 L Pulse Oximetry 100 99 99 07/19/18 01:40 07/19/18 01:50 07/19/18 02:00 Temperature Pulse Rate 91 H 94 H 98 H Respiratory Rate 21 21 20 Blood Pressure 121/58 L 117/59 L 111/53 L Pulse Oximetry 100 99 99 07/19/18 02:10 07/19/18 02:20 07/19/18 02:30 Temperature Pulse Rate 162 H 98 H 97 H Respiratory Rate 21 23 23 Blood Pressure 112/55 L 107/53 L 98/50 L Pulse Oximetry 99 98 97 07/19/18 02:40 07/19/18 02:50 07/19/18 03:00 Temperature Pulse Rate 103 H 101 H 99 H Respiratory Rate 26 H 21 19 Blood Pressure 103/51 L 106/51 L 105/55 L Pulse Oximetry 97 97 96 07/19/18 04:00 07/19/18 04:30 07/19/18 04:59 Temperature 97.8 F Pulse Rate 109 H 90 94 H Respiratory Rate 22 20 24 Blood Pressure 109/56 L 105/54 L Pulse Oximetry 100 99 99 07/19/18 05:00 07/19/18 05:30 07/19/18 06:00 Temperature Pulse Rate 96 H 94 H 95 H Respiratory Rate 21 21 23 Blood Pressure 104/55 L 104/55 L 107/55 L Pulse Oximetry 99 98 97 07/19/18 06:30 07/19/18 07:00 07/19/18 07:32 Temperature Pulse Rate 89 90 99 H Respiratory Rate 23 20 26 H Blood Pressure 109/53 L 107/56 L 81/51 L Pulse Oximetry 97 98 98 07/19/18 07:34 07/19/18 07:45 07/19/18 08:00 Temperature 98.5 F Pulse Rate 97 H 153 H 91 H Respiratory Rate 19 25 H 18 Blood Pressure 92/51 L 98/57 L 95/51 L Pulse Oximetry 98 98 99 07/19/18 08:15 07/19/18 08:30 07/19/18 08:45 Temperature Pulse Rate 78 90 88 Respiratory Rate 19 20 20 Blood Pressure 98/50 L 100/53 L 102/53 L Pulse Oximetry 100 100 99 07/19/18 09:00 07/19/18 09:15 07/19/18 09:30 Temperature Pulse Rate 90 110 H 94 H Respiratory Rate 20 28 H 32 H Blood Pressure 100/57 L 113/62 117/59 L Pulse Oximetry 99 98 98 07/19/18 09:45 07/19/18 10:00 07/19/18 10:15 Temperature Pulse Rate 131 H 96 H 85 Respiratory Rate 28 H 20 21 Blood Pressure 110/55 L 101/55 L 104/64 Pulse Oximetry 97 98 97 07/19/18 10:30 07/19/18 10:35 07/19/18 10:45 Temperature Pulse Rate 91 H 86 Respiratory Rate 19 22 Blood Pressure 103/57 L 99/57 L Pulse Oximetry 100 98 100 07/19/18 11:00 07/19/18 11:15 07/19/18 11:30 Temperature Pulse Rate 95 H 152 H 91 H Respiratory Rate 20 24 21 Blood Pressure 105/55 L 105/55 L 97/51 L Pulse Oximetry 100 99 100 07/19/18 11:45 07/19/18 12:00 07/19/18 12:15 Temperature Pulse Rate 90 85 96 H Respiratory Rate 21 22 29 H Blood Pressure 95/53 L 99/50 L 105/55 L Pulse Oximetry 99 99 98 07/19/18 12:30 07/19/18 12:45 07/19/18 13:00 Temperature Pulse Rate 103 H 87 89 Respiratory Rate 27 H 20 22 Blood Pressure 93/61 L 106/55 L 106/52 L Pulse Oximetry 97 100 100 07/19/18 13:15 07/19/18 13:30 07/19/18 13:45 Temperature Pulse Rate 99 H 95 H Respiratory Rate 24 24 27 H Blood Pressure 120/57 L 105/57 L 106/57 L Pulse Oximetry 100 100 99 07/19/18 14:00 07/19/18 14:15 07/19/18 14:30 Temperature Pulse Rate 87 93 H 89 Respiratory Rate 21 23 23 Blood Pressure 107/50 L 103/54 L 101/55 L Pulse Oximetry 100 100 100 07/19/18 14:45 07/19/18 14:53 07/19/18 15:00 Temperature 98.2 F 98.3 F 98.6 F Pulse Rate 89 89 97 H Respiratory Rate 22 22 26 H Blood Pressure 108/55 L 108/55 L 111/51 L Pulse Oximetry 100 100 100 07/19/18 15:15 07/19/18 15:30 07/19/18 15:45 Temperature Pulse Rate 123 H 84 163 H Respiratory Rate 31 H 23 30 H Blood Pressure 105/54 L 106/55 L 112/68 Pulse Oximetry 98 100 97 07/19/18 16:00 07/19/18 16:15 07/19/18 16:30 Temperature Pulse Rate 92 H 84 91 H Respiratory Rate 22 21 23 Blood Pressure 128/60 110/56 L 110/61 Pulse Oximetry 100 100 100 07/19/18 16:45 07/19/18 17:00 07/19/18 17:15 Temperature Pulse Rate 92 H 167 H 91 H Respiratory Rate 22 28 H 24 Blood Pressure 111/63 122/60 113/59 L Pulse Oximetry 100 92 L 100 07/19/18 17:30 07/19/18 17:45 07/19/18 18:00 Temperature Pulse Rate 88 89 82 Respiratory Rate 25 H 20 20 Blood Pressure 115/58 L 115/56 L 114/59 L Pulse Oximetry 100 100 100 07/19/18 18:15 Temperature Pulse Rate 73 Respiratory Rate 18 Blood Pressure 119/62 Pulse Oximetry 100 Intake & Output 07/19/18 07/19/18 07/20/18 06:59 18:59 06:59 Intake Total 1900 / 1900 1400 / 1400 50 / 50 Output Total 350 / 350 100 / 100 Balance 1550 / 1550 1300 / 1300 50 / 50 Weight 111 kg Intake: IV 1300 / 1300 1400 / 1400 50 / 50 NS Inj 1,000 ML @ 70 mls/hr IV. 1000 / 1000 1000 / 1000 CONT .[id number] [facility] Rx#:[id number] Flexbumin 25% Inj 100 ML @ 60 200 / 200 100 / 100 mls/hr IV.SIG Q8H [facility] Rx#: [id number] Zosyn 3.375 GM Premix 50 ML @ 100 / 100 100 / 100 50 / 50 100 mls/hr IV.SIG Q6H [facility] Rx#: [id number] KCl 20 mEq Premix Inj 20 meq In 200 / 200 100 ml @ 50 mls/hr IV.SIG Q2H PRN Rx#:[id number] Oral 600 / 600 Intake (Blood Product) Amt 0 / 0 Rbc As-3 Leukoreduced Unit 0 / 0 [id number] Output: Urine 350 / 350 100 / 100 Other: # Voids 2 2 Date of Last Bowel Movement 07/19/18 07/19/18 # Bowel Movements 2 2 07/17/18 20:35 Clean Catch Urine Urine Culture - Final S. aureus MRSA 07/17/18 11:03 Blood - Peripheral Aerobic Blood Culture - Preliminary No growth in 2 days 07/17/18 11:03 Blood - Peripheral Anaerobic Blood Culture - Preliminary No growth in 2 days 07/17/18 11:09 Blood - Peripheral Aerobic Blood Culture - Preliminary No growth in 2 days 07/17/18 11:09 Blood - Peripheral Anaerobic Blood Culture - Preliminary No growth in 2 days Lab - Hematology Results 07/18/18 07/18/18 07/18/18 02:41 09:23 14:12 WBC 11.0 RBC 3.59 L Hgb 10.4 L 9.9 L 9.0 L Hct 31.8 L MCV 88.6 MCH 29.0 MCHC 32.7 RDW 15.5 Plt Count 426 MPV 7.1 Prelim Diff (Auto) Slide review pending Neut % (Auto) 85.0 H Lymph % (Auto) 6.9 L [place] % (Auto) 3.9 Eos % (Auto) 3.8 Baso % (Auto) 0.4 Neut # (Auto) 9.3 H Lymph # (Auto) 0.8 L [place] # (Auto) 0.4 Eos # (Auto) 0.4 Baso # (Auto) 0.0 WBC Differential Manual diff final Seg Neuts % (Manual) 79 H Band Neuts % (Manual) 12 H Lymphocytes % (Manual) 3 L Eosinophils % (Manual) 3 Metamyelocytes % (Man) 2 H Myelocytes % (Man) 1 H Abs Neuts (Manual) 10.3 H Differential Comment . Toxic Granulation 1+ H Toxic Vacuolation Present H Platelet Estimate Normal Platelet Morphology Normal Basophilic Stippling Faint H Acanthocytes (Spur) Occ H 07/19/18 04:05 WBC 7.1 RBC 2.65 L Hgb 7.9 L Hct 23.5 L MCV 88.4 MCH 29.9 MCHC 33.9 RDW 15.5 Plt Count 343 MPV 7.1 Prelim Diff (Auto) Neut % (Auto) Lymph % (Auto) [place] % (Auto) Eos % (Auto) Baso % (Auto) Neut # (Auto) Lymph # (Auto) [place] # (Auto) Eos # (Auto) Baso # (Auto) WBC Differential Seg Neuts % (Manual) Band Neuts % (Manual) Lymphocytes % (Manual) Eosinophils % (Manual) Metamyelocytes % (Man) Myelocytes % (Man) Abs Neuts (Manual) Differential Comment Toxic Granulation Toxic Vacuolation Platelet Estimate Platelet Morphology Basophilic Stippling Acanthocytes (Spur) Lab - Chemistry Results 07/18/18 07/18/18 07/18/18 02:41 09:23 09:23 Sodium 146 H Potassium 3.5 Chloride 113 H Carbon Dioxide 22.2 Anion Gap 11 BUN 26 H Creatinine 1.41 H Estimated GFR 37 L Random Glucose 75 Lactic Acid 1.4 Calcium 6.9 L* Prot Corrected Calcium 8.1 L Phosphorus Magnesium Total Bilirubin 0.7 AST 25 ALT 12 Alkaline Phosphatase 158 H Total Protein 4.9 L Albumin 1.2 L Cortisol 21.8 07/18/18 07/19/18 07/19/18 09:23 04:05 19:54 Sodium 145 Potassium 3.1 L 3.8 Chloride 115 H Carbon Dioxide 18.0 L Anion Gap 12 BUN 18 Creatinine 1.20 H Estimated GFR 44 L Random Glucose 71 L Lactic Acid Calcium 6.8 L* Prot Corrected Calcium 8.1 L Phosphorus 4.3 Magnesium 1.6 1.4 L Total Bilirubin 1.2 H AST 23 ALT 11 Alkaline Phosphatase 200 H Total Protein 4.7 L Albumin 1.9 L D Cortisol Imaging: ITS Impressions Abdomen/Pelvis CT 07/17/18 00:00 CONCLUSION: 1. Persistent pericolic inflammatory changes involving the distal transverse colon and descending colon consistent with acute diverticulitis or colitis. 2. Extensive subcutaneous fluid/edema is noted involving the left lateral abdominal wall and is worse than on the previous examination. 3. Multiple calcified nonobstructing bilateral renal calculi. 4. Cholelithiasis. 5. Ventral abdominal wall hernia containing only fat. 6. Degenerative changes and scoliosis of the thoracolumbar spine. 7. 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 8. Posterior bibasilar atelectasis. 9. Stable left renal cysts. Abdomen Ultrasound 07/18/18 00:00 CONCLUSION: Soft tissue edema. Chest X-Ray 07/19/18 06:00 CONCLUSION: Bilateral infiltrates Physical Exam: GENERAL: NAD SKIN: Warm and dry. HEAD: Atraumatic. Normocephalic. EYES: Pupils equal and round. No scleral icterus. No injection or drainage. ENT: No nasal bleeding or discharge. Mucous membranes pink and moist. NECK: Trachea midline. No JVD. CARDIOVASCULAR: Regular rate and rhythm. RESPIRATORY: No accessory muscle use. Clear to auscultation. Breath sounds equal bilaterally. GASTROINTESTINAL: Abdomen soft, not tender , nondistended. Hepatic and splenic margins not palpable. MUSCULOSKELETAL: Extremities without clubbing, cyanosis, much improved edema. No obvious deformities. NEUROLOGICAL: Awake and alert. No obvious cranial nerve deficits. Motor grossly within normal limits. Five out of 5 muscle strength in the arms and legs. Normal speech. PSYCHIATRIC: c saul , coopertive Assessment and Plan - Plan Diverticulitis vs colitis with rectal bleeding - c.diff negative Pt needs colonoscopy but she is not agreable Leukocytosis, extreme bandemia - [place] 2/2 GI/ source MRSA UTI vs secondary bacteriuria cont zosyn add vancomycin IV - pharmacy to dose
[2018-07-19] MEDS ORDERED: Vancomycin Inj 2,000 MG in Sodium Chlor 0.9% Inj 500 ML IV.SIG ONE (22:00)
[2018-07-20] MEDS: Albumin Human 25% Inj 100 ML IV.SIG SCH ×2 (00:34→10:25)
[2018-07-20] MEDS: Chlorhexidine Gluconate 2% 1 Pack (2 Cloths) TOPICAL SCH (04:34)
[2018-07-20] MEDS: Piperacil/Tazo 3.375 GM Premix 50 ML IV.SIG SCH ×4 (04:34→21:32)
[2018-07-20 06:36] LABS: Albumin 2.3 g/dL (3.4-5.0); Calcium 7.1 mg/dL (8.5-10.1); Carbon Dioxide 19.5 meq/L (21.0-32.0); Magnesium 1.4 mg/dL (1.5-2.5); Potassium 3.3 meq/L (3.5-5.1); Total Protein 4.9 g/dL (6.4-8.2)
[2018-07-20] MEDS: Pantoprazole Inj 40 MG Vial IV.PUSH SCH ×2 (10:25→20:07)
--- NOTE | 2018-07-20 11:17 | P.PNGI ---
Subjective Interval history: Resting in the bed appears more talkative today Denies any acute nausea vomiting or abdominal pain Generalized malaise and fatigue <Renetta Michel M - Last Filed: 07/20/18 11:12> Physical Exam Vital signs: Vital Signs 07/19/18 11:15 07/19/18 11:30 07/19/18 11:45 Temperature Pulse Rate 152 H 91 H 90 Respiratory Rate 24 21 21 Blood Pressure 105/55 L 97/51 L 95/53 L Pulse Oximetry 99 100 99 07/19/18 12:00 07/19/18 12:15 07/19/18 12:30 Temperature Pulse Rate 85 96 H 103 H Respiratory Rate 22 29 H 27 H Blood Pressure 99/50 L 105/55 L 93/61 L Pulse Oximetry 99 98 97 07/19/18 12:45 07/19/18 13:00 07/19/18 13:15 Temperature Pulse Rate 87 89 99 H Respiratory Rate 20 22 24 Blood Pressure 106/55 L 106/52 L 120/57 L Pulse Oximetry 100 100 100 07/19/18 13:30 07/19/18 13:45 07/19/18 14:00 Temperature Pulse Rate 95 H 87 Respiratory Rate 24 27 H 21 Blood Pressure 105/57 L 106/57 L 107/50 L Pulse Oximetry 100 99 100 07/19/18 14:15 07/19/18 14:30 07/19/18 14:45 Temperature 98.2 F Pulse Rate 93 H 89 89 Respiratory Rate 23 23 22 Blood Pressure 103/54 L 101/55 L 108/55 L Pulse Oximetry 100 100 100 07/19/18 14:53 07/19/18 15:00 07/19/18 15:15 Temperature 98.3 F 98.6 F Pulse Rate 89 97 H 123 H Respiratory Rate 22 26 H 31 H Blood Pressure 108/55 L 111/51 L 105/54 L Pulse Oximetry 100 100 98 07/19/18 15:30 07/19/18 15:45 07/19/18 16:00 Temperature Pulse Rate 84 163 H 92 H Respiratory Rate 23 30 H 22 Blood Pressure 106/55 L 112/68 128/60 Pulse Oximetry 100 97 100 07/19/18 16:15 07/19/18 16:30 07/19/18 16:45 Temperature Pulse Rate 84 91 H 92 H Respiratory Rate 21 23 22 Blood Pressure 110/56 L 110/61 111/63 Pulse Oximetry 100 100 100 07/19/18 17:00 07/19/18 17:15 07/19/18 17:30 Temperature Pulse Rate 167 H 91 H 88 Respiratory Rate 28 H 24 25 H Blood Pressure 122/60 113/59 L 115/58 L Pulse Oximetry 92 L 100 100 07/19/18 17:45 07/19/18 18:00 07/19/18 18:15 Temperature Pulse Rate 89 82 73 Respiratory Rate 20 20 18 Blood Pressure 115/56 L 114/59 L 119/62 Pulse Oximetry 100 100 100 07/19/18 18:30 07/19/18 18:45 07/19/18 19:00 Temperature Pulse Rate 87 89 Respiratory Rate 21 22 29 H Blood Pressure 119/64 120/63 132/70 Pulse Oximetry 100 100 100 07/19/18 19:15 07/19/18 19:30 07/19/18 19:54 Temperature Pulse Rate 134 H 90 173 H Respiratory Rate 25 H 28 H 27 H Blood Pressure 130/66 127/63 122/62 Pulse Oximetry 99 100 100 07/19/18 20:00 07/19/18 20:15 07/19/18 20:30 Temperature 98 F Pulse Rate 88 85 89 Respiratory Rate 22 22 23 Blood Pressure 123/61 124/58 L 115/56 L Pulse Oximetry 100 99 100 07/19/18 20:45 07/19/18 21:00 07/19/18 21:15 Temperature Pulse Rate 95 H 91 H 128 H Respiratory Rate 22 20 26 H Blood Pressure 111/61 114/62 119/63 Pulse Oximetry 99 99 99 07/19/18 21:31 07/19/18 21:45 07/19/18 22:00 Temperature Pulse Rate 90 92 H 81 Respiratory Rate 28 H 20 17 Blood Pressure 144/69 H 116/55 L 104/51 L Pulse Oximetry 97 99 99 07/19/18 22:15 07/19/18 22:29 07/19/18 22:30 Temperature Pulse Rate 83 82 Respiratory Rate 17 17 Blood Pressure 106/54 L 98/55 L Pulse Oximetry 99 97 95 07/19/18 22:45 07/19/18 23:00 07/19/18 23:15 Temperature Pulse Rate 85 72 74 Respiratory Rate 20 16 15 Blood Pressure 112/57 L 108/55 L 107/57 L Pulse Oximetry 99 97 97 07/19/18 23:30 07/19/18 23:45 07/20/18 00:00 Temperature 98.7 F Pulse Rate 69 86 78 Respiratory Rate 15 15 20 Blood Pressure 108/59 L 114/55 L 120/60 Pulse Oximetry 97 96 98 07/20/18 00:15 07/20/18 00:30 07/20/18 00:45 Temperature Pulse Rate 78 73 78 Respiratory Rate 19 20 18 Blood Pressure 117/59 L 119/63 132/61 Pulse Oximetry 99 98 99 07/20/18 01:00 07/20/18 01:15 07/20/18 01:30 Temperature Pulse Rate 81 75 74 Respiratory Rate 19 20 19 Blood Pressure 123/60 124/61 117/60 Pulse Oximetry 98 99 99 07/20/18 01:45 07/20/18 02:00 07/20/18 02:15 Temperature Pulse Rate 75 77 78 Respiratory Rate 19 19 19 Blood Pressure 122/57 L 123/58 L 121/58 L Pulse Oximetry 99 100 100 07/20/18 02:30 07/20/18 02:45 07/20/18 03:00 Temperature Pulse Rate 86 76 60 Respiratory Rate 20 19 16 Blood Pressure 122/60 120/59 L 121/56 L Pulse Oximetry 98 100 99 07/20/18 03:15 07/20/18 03:30 07/20/18 03:45 Temperature Pulse Rate 76 83 64 Respiratory Rate 19 21 20 Blood Pressure 129/62 127/62 124/60 Pulse Oximetry 99 99 99 07/20/18 04:00 07/20/18 04:15 07/20/18 04:30 Temperature 97.7 F Pulse Rate 61 61 62 Respiratory Rate 16 15 15 Blood Pressure 125/61 119/56 L 117/57 L Pulse Oximetry 100 98 98 07/20/18 04:45 07/20/18 05:00 07/20/18 05:15 Temperature Pulse Rate 59 L 75 74 Respiratory Rate 15 20 19 Blood Pressure 112/59 L 123/66 121/57 L Pulse Oximetry 98 98 99 07/20/18 05:30 07/20/18 05:45 07/20/18 06:00 Temperature Pulse Rate 81 70 67 Respiratory Rate 24 18 18 Blood Pressure 126/58 L 125/61 125/66 Pulse Oximetry 99 100 100 07/20/18 06:15 07/20/18 06:30 07/20/18 06:45 Temperature Pulse Rate 86 75 71 Respiratory Rate 20 19 24 Blood Pressure 128/68 125/66 121/62 Pulse Oximetry 100 100 99 07/20/18 07:00 07/20/18 07:15 Temperature Pulse Rate 138 H 66 Respiratory Rate 28 H 24 Blood Pressure 129/60 134/62 Pulse Oximetry 98 99 Intake & Output 07/19/18 07/20/18 07/20/18 18:59 06:59 18:59 Intake Total 1400 / 1400 1520 / 1520 150 / 150 Output Total 100 / 100 Balance 1300 / 1300 1520 / 1520 150 / 150 Weight 111 kg Intake: IV 1400 / 1400 920 / 920 150 / 150 NS Inj 1,000 ML @ 70 mls/hr IV. 1000 / 1000 CONT .[id number] [facility] Rx#:[id number] Flexbumin 25% Inj 100 ML @ 60 100 / 100 100 / 100 100 / 100 mls/hr IV.SIG Q8H [facility] Rx#: [id number] Zosyn 3.375 GM Premix 50 ML @ 100 / 100 100 / 100 50 / 50 100 mls/hr IV.SIG Q6H [facility] Rx#: [id number] KCl 20 mEq Premix Inj 20 meq In 200 / 200 100 ml @ 50 mls/hr IV.SIG Q2H PRN Rx#:[id number] Vancomycin Inj 2,000 MG In NS 540 / 540 Inj 500 ML @ 250 mls/hr IV.SIG ONCE ONE Rx#:[id number] Oral 600 / 600 Intake (Blood Product) Amt 0 / 0 Rbc As-3 Leukoreduced Unit 0 / 0 [id number] Output: Urine 100 / 100 Other: # Voids 2 3 Date of Last Bowel Movement 07/19/18 07/20/18 # Bowel Movements 2 1 - Constitutional mild distress, morbidly obese, disheveled, cooperative - Routine HEENT Exam ENT: Present: mucous membranes moist - Routine Respiratory Exam Present: accessory muscle use (No obvious shortness of breath wheezing or rhonchi) - Routine Cardiovascular Exam Present: S1, S2 - Routine Abdominal Exam Present: soft, normoactive bowel sounds (Soft bowel sounds no obvious abdominal pain to light palpation) <Renetta Michel - Last Filed: 07/20/18 11:12> Vital signs: Vital Signs 07/19/18 15:15 07/19/18 15:30 07/19/18 15:45 Temperature Pulse Rate 123 H 84 163 H Respiratory Rate 31 H 23 30 H Blood Pressure 105/54 L 106/55 L 112/68 Pulse Oximetry 98 100 97 07/19/18 16:00 07/19/18 16:15 07/19/18 16:30 Temperature Pulse Rate 92 H 84 91 H Respiratory Rate 22 21 23 Blood Pressure 128/60 110/56 L 110/61 Pulse Oximetry 100 100 100 07/19/18 16:45 07/19/18 17:00 07/19/18 17:15 Temperature Pulse Rate 92 H 167 H 91 H Respiratory Rate 22 28 H 24 Blood Pressure 111/63 122/60 113/59 L Pulse Oximetry 100 92 L 100 07/19/18 17:30 07/19/18 17:45 07/19/18 18:00 Temperature Pulse Rate 88 89 82 Respiratory Rate 25 H 20 20 Blood Pressure 115/58 L 115/56 L 114/59 L Pulse Oximetry 100 100 100 07/19/18 18:15 07/19/18 18:30 07/19/18 18:45 Temperature Pulse Rate 73 87 89 Respiratory Rate 18 21 22 Blood Pressure 119/62 119/64 120/63 Pulse Oximetry 100 100 100 07/19/18 19:00 07/19/18 19:15 07/19/18 19:30 Temperature Pulse Rate 134 H 90 Respiratory Rate 29 H 25 H 28 H Blood Pressure 132/70 130/66 127/63 Pulse Oximetry 100 99 100 07/19/18 19:54 07/19/18 20:00 07/19/18 20:15 Temperature 98 F Pulse Rate 173 H 88 85 Respiratory Rate 27 H 22 22 Blood Pressure 122/62 123/61 124/58 L Pulse Oximetry 100 100 99 07/19/18 20:30 07/19/18 20:45 07/19/18 21:00 Temperature Pulse Rate 89 95 H 91 H Respiratory Rate 23 22 20 Blood Pressure 115/56 L 111/61 114/62 Pulse Oximetry 100 99 99 07/19/18 21:15 07/19/18 21:31 07/19/18 21:45 Temperature Pulse Rate 128 H 90 92 H Respiratory Rate 26 H 28 H 20 Blood Pressure 119/63 144/69 H 116/55 L Pulse Oximetry 99 97 99 07/19/18 22:00 07/19/18 22:15 07/19/18 22:29 Temperature Pulse Rate 81 83 Respiratory Rate 17 17 Blood Pressure 104/51 L 106/54 L Pulse Oximetry 99 99 97 07/19/18 22:30 07/19/18 22:45 07/19/18 23:00 Temperature Pulse Rate 82 85 72 Respiratory Rate 17 20 16 Blood Pressure 98/55 L 112/57 L 108/55 L Pulse Oximetry 95 99 97 07/19/18 23:15 07/19/18 23:30 07/19/18 23:45 Temperature Pulse Rate 74 69 86 Respiratory Rate 15 15 15 Blood Pressure 107/57 L 108/59 L 114/55 L Pulse Oximetry 97 97 96 07/20/18 00:00 07/20/18 00:15 07/20/18 00:30 Temperature 98.7 F Pulse Rate 78 78 73 Respiratory Rate 20 19 20 Blood Pressure 120/60 117/59 L 119/63 Pulse Oximetry 98 99 98 07/20/18 00:45 07/20/18 01:00 07/20/18 01:15 Temperature Pulse Rate 78 81 75 Respiratory Rate 18 19 20 Blood Pressure 132/61 123/60 124/61 Pulse Oximetry 99 98 99 07/20/18 01:30 07/20/18 01:45 07/20/18 02:00 Temperature Pulse Rate 74 75 77 Respiratory Rate 19 19 19 Blood Pressure 117/60 122/57 L 123/58 L Pulse Oximetry 99 99 100 07/20/18 02:15 07/20/18 02:30 07/20/18 02:45 Temperature Pulse Rate 78 86 76 Respiratory Rate 19 20 19 Blood Pressure 121/58 L 122/60 120/59 L Pulse Oximetry 100 98 100 07/20/18 03:00 07/20/18 03:15 07/20/18 03:30 Temperature Pulse Rate 60 76 83 Respiratory Rate 16 19 21 Blood Pressure 121/56 L 129/62 127/62 Pulse Oximetry 99 99 99 07/20/18 03:45 07/20/18 04:00 07/20/18 04:15 Temperature 97.7 F Pulse Rate 64 61 61 Respiratory Rate 20 16 15 Blood Pressure 124/60 125/61 119/56 L Pulse Oximetry 99 100 98 10/08/18 04:30 07/20/18 04:45 07/20/18 05:00 Temperature Pulse Rate 62 59 L 75 Respiratory Rate 15 15 20 Blood Pressure 117/57 L 112/59 L 123/66 Pulse Oximetry 98 98 98 07/20/18 05:15 07/20/18 05:30 07/20/18 05:45 Temperature Pulse Rate 74 81 70 Respiratory Rate 19 24 18 Blood Pressure 121/57 L 126/58 L 125/61 Pulse Oximetry 99 99 100 07/20/18 06:00 07/20/18 06:15 07/20/18 06:30 Temperature Pulse Rate 67 86 75 Respiratory Rate 18 20 19 Blood Pressure 125/66 128/68 125/66 Pulse Oximetry 100 100 100 07/20/18 06:45 07/20/18 07:00 07/20/18 07:15 Temperature Pulse Rate 71 138 H 66 Respiratory Rate 24 28 H 24 Blood Pressure 121/62 129/60 134/62 Pulse Oximetry 99 98 99 07/20/18 07:46 07/20/18 08:00 07/20/18 08:15 Temperature Pulse Rate 74 80 73 Respiratory Rate 24 19 24 Blood Pressure 136/68 134/68 138/60 Pulse Oximetry 100 99 100 07/20/18 08:30 07/20/18 08:45 07/20/18 09:00 Temperature Pulse Rate 67 65 71 Respiratory Rate 20 19 18 Blood Pressure 140/64 137/61 134/65 Pulse Oximetry 100 100 97 07/20/18 09:15 07/20/18 09:30 07/20/18 09:45 Temperature Pulse Rate 71 68 71 Respiratory Rate 21 22 23 Blood Pressure 139/62 131/76 136/78 Pulse Oximetry 99 100 99 07/20/18 10:00 07/20/18 10:15 07/20/18 10:30 Temperature Pulse Rate 70 81 Respiratory Rate 19 39 H 26 H Blood Pressure 135/71 145/83 H 159/71 H Pulse Oximetry 100 98 99 07/20/18 10:45 07/20/18 11:00 07/20/18 11:15 Temperature Pulse Rate 191 H 101 H Respiratory Rate 23 26 H 22 Blood Pressure 143/70 H 148/74 H 147/69 H Pulse Oximetry 95 87 L 100 07/20/18 11:30 07/20/18 11:45 10/08/18 12:00 Temperature Pulse Rate 80 86 78 Respiratory Rate 20 20 21 Blood Pressure 134/64 131/62 139/72 Pulse Oximetry 100 100 100 07/20/18 12:15 07/20/18 12:30 07/20/18 12:45 Temperature Pulse Rate 80 88 72 Respiratory Rate 19 20 18 Blood Pressure 137/70 134/65 133/63 Pulse Oximetry 100 100 100 07/20/18 13:00 07/20/18 13:15 07/20/18 13:30 Temperature Pulse Rate 96 H 83 94 H Respiratory Rate 26 H 25 H 24 Blood Pressure 142/73 H 134/63 137/66 Pulse Oximetry 100 100 100 07/20/18 13:45 Temperature Pulse Rate 90 Respiratory Rate 18 Blood Pressure 137/65 Pulse Oximetry 99 Intake & Output 07/19/18 07/20/18 07/20/18 18:59 06:59 18:59 Intake Total 1400 / 1400 1520 / 1520 1200 / 1200 Output Total 100 / 100 Balance 1300 / 1300 1520 / 1520 1200 / 1200 Weight 111 kg Intake: IV 1400 / 1400 920 / 920 1200 / 1200 NS Inj 1,000 ML @ 70 mls/hr IV. 1000 / 1000 1000 / 1000 CONT .[id number] [facility] Rx#:[id number] Flexbumin 25% Inj 100 ML @ 60 100 / 100 100 / 100 100 / 100 mls/hr IV.SIG Q8H [facility] Rx#: [id number] Zosyn 3.375 GM Premix 50 ML @ 100 / 100 100 / 100 100 / 100 100 mls/hr IV.SIG Q6H [facility] Rx#: [id number] KCl 20 mEq Premix Inj 20 meq In 200 / 200 100 ml @ 50 mls/hr IV.SIG Q2H PRN Rx#:[id number] Vancomycin Inj 2,000 MG In NS 540 / 540 Inj 500 ML @ 250 mls/hr IV.SIG ONCE ONE Rx#:[id number] Oral 600 / 600 Intake (Blood Product) Amt 0 / 0 Rbc As-3 Leukoreduced Unit 0 / 0 [id number] Output: Urine 100 / 100 Other: # Voids 2 3 Date of Last Bowel Movement 07/19/18 07/20/18 07/20/18 # Bowel Movements 2 1 <Fausto Montanez - Last Filed: 07/20/18 15:07> Results - Labs CBC & Chem 7: 07/19/18 04:05 07/20/18 05:37 Laboratory Results - last 24 hr 07/16/18 07/19/18 07/19/18 22:40 10:25 19:54 Sodium Potassium 3.8 Chloride Carbon Dioxide Anion Gap BUN Creatinine Estimated GFR Random Glucose Calcium Prot Corrected Calcium Magnesium Total Bilirubin AST ALT Alkaline Phosphatase Total Protein Albumin Blood Type A Negative Antibody Screen Negative MTS Gel Crossmatch See Detail See Detail 07/20/18 05:37 Sodium 146 H Potassium 3.3 L Chloride 117 H Carbon Dioxide 19.5 L Anion Gap 10 BUN 12 Creatinine 0.88 Estimated GFR 63 L Random Glucose 75 Calcium 7.1 L* Prot Corrected Calcium 8.3 L Magnesium 1.4 L Total Bilirubin 1.4 H AST 20 ALT 11 Alkaline Phosphatase 216 H Total Protein 4.9 L Albumin 2.3 L Blood Type Antibody Screen MTS Gel Crossmatch Microbiology 07/17/18 11:03 Blood - Peripheral Aerobic Blood Culture - Preliminary No growth in 3 days 07/17/18 11:03 Blood - Peripheral Anaerobic Blood Culture - Preliminary No growth in 3 days 07/17/18 11:09 Blood - Peripheral Aerobic Blood Culture - Preliminary No growth in 3 days 07/17/18 11:09 Blood - Peripheral Anaerobic Blood Culture - Preliminary No growth in 3 days 07/17/18 20:35 Clean Catch Urine Urine Culture - Final S. aureus MRSA <Renetta Michel - Last Filed: 07/20/18 11:12> - Labs CBC & Chem 7: 07/20/18 10:37 07/20/18 10:37 Laboratory Results - last 24 hr 07/16/18 07/19/18 07/19/18 22:40 10:25 19:54 WBC RBC Hgb Hct MCV MCH MCHC RDW Plt Count MPV Neut % (Auto) Lymph % (Auto) Bee % (Auto) Eos % (Auto) Baso % (Auto) Neut # (Auto) Lymph # (Auto) Bee # (Auto) Eos # (Auto) Baso # (Auto) WBC Differential Differential Comment Sodium Potassium 3.8 Chloride Carbon Dioxide Anion Gap BUN Creatinine Estimated GFR Random Glucose Calcium Prot Corrected Calcium Magnesium Total Bilirubin AST ALT Alkaline Phosphatase Total Protein Albumin Blood Type A Negative Antibody Screen Negative MTS Gel Crossmatch See Detail See Detail 07/20/18 07/20/18 07/20/18 05:37 10:37 10:37 WBC 7.2 RBC 3.30 L Hgb 9.8 L Hct 29.8 L MCV 90.2 MCH 29.7 MCHC 33.0 RDW 15.9 Plt Count 325 MPV 7.1 Neut % (Auto) 65.2 Lymph % (Auto) 21.3 Bee % (Auto) 6.5 Eos % (Auto) 6.0 H Baso % (Auto) 1.0 Neut # (Auto) 4.7 Lymph # (Auto) 1.5 Bee # (Auto) 0.5 Eos # (Auto) 0.4 Baso # (Auto) 0.1 WBC Differential . Differential Comment Auto diff final Sodium 146 H 149 H Potassium 3.3 L 3.2 L Chloride 117 H 117 H Carbon Dioxide 19.5 L 22.1 Anion Gap 10 10 BUN 12 12 Creatinine 0.88 0.91 Estimated GFR 63 L 61 L Random Glucose 75 69 L Calcium 7.1 L* 7.0 L* Prot Corrected Calcium 8.3 L 7.9 L Magnesium 1.4 L Total Bilirubin 1.4 H AST 20 ALT 11 Alkaline Phosphatase 216 H Total Protein 4.9 L 5.3 L Albumin 2.3 L Blood Type Antibody Screen MTS Gel Crossmatch Microbiology 07/17/18 11:03 Blood - Peripheral Aerobic Blood Culture - Preliminary No growth in 3 days 07/17/18 11:03 Blood - Peripheral Anaerobic Blood Culture - Preliminary No growth in 3 days 07/17/18 11:09 Blood - Peripheral Aerobic Blood Culture - Preliminary No growth in 3 days 07/17/18 11:09 Blood - Peripheral Anaerobic Blood Culture - Preliminary No growth in 3 days 07/17/18 20:35 Clean Catch Urine Urine Culture - Final S. aureus MRSA <Fausto Montanez - Last Filed: 07/20/18 15:07> Assessment and Plan - Plan GI bleed, unknown source of bleeding except positive Hemoccult but could be related to Eliquis. Stools are brown Symptomatic anemia hemoglobin 7 post transfusion recent hemoglobin 10 0.9., Monitoring symptoms in the intensive care setting of hypotension, tachycardia, weakness and dizziness history of atrial fibrillation, current heart rate 102. Currently has Protonix drip infusing. No obvious bright red bleeding. Chronic diarrhea could be related to patient's overall comorbidity, Eliquis probable and/or other medications. Recent history of diverticulitis Hypomagnesemia, per attending Patient is refusing EGD and colonoscopy and also refused this past recent admission. Discussed with her other options which could be bleeding scan, but since patient sees no obvious blood bleeding , may be microscopic. Repeat hemoglobin 10.9 after transfusion, Eliquis is on hold. Discussed with patient past admission that she is very high risk for GI bleed with Eliquis. 07/18/18-no obvious signs of bleeding noted. Hemoglobin 10.4 hematocrit 31.8 platelet count 426. Eliquis on hold. Hemoglobin stable at this time posttransfusion. Will advance diet and continue to monitor. BM x3 as noted per documentation. 07/20/2018, went back to check patient in to speak with her regarding colonoscopy after discussion on 07/19/[address] Montanez. Patient now states that she realizes if she wants to move on and get better she is agreeable to do colonoscopy. Discussed with patient in depth the procedure of clear liquids nothing to eat or drink after midnight, consent for test and GoLYTELY prep. Encourage patient to start prep around 1400 and may drink a little slower but needs to drink full amount. Patient agrees to the plan. Patient ate minimal regular breakfast and is now on clear liquids. Current hemoglobin 7.9 on 07/19/2018, CBC and BMP are pending today Plan: Diet clear liquids today Consent for colonoscopy in a.m. N.p.o. at midnight tonight GoLYTELY prep today Monitor patient's labs with special attention hemoglobin, transfuse as needed Eliquis on hold PPI IV continue Further recommendations to follow Supportive care Patient was seen per myself and Dr. Montanez, note was written on his behalf <Renetta Michel - Last Filed: 07/20/18 11:12> - Plan Seen and examined with [employer], agreed to colonoscopy now. Planned for tomorrow. The exam, history, and the medical decision-making described in the above note were completed with the assistance of the mid-level provider. I reviewed and agree with the findings presented. I attest that I had a [id number] encounter with the patient on the same day, and personally performed and documented my assessment and findings in the medical record. <Fausto Montanez - Last Filed: 07/20/18 15:07>
[2018-07-20 11:23] LABS: Baso # (Auto) 0.1 th/mm3 (0.0-0.2); Eos # (Auto) 0.4 th/mm3 (0.0-0.4); Hematocrit 29.8 % (35.0-46.0); Hemoglobin 9.8 gm/dL (11.6-15.3); Lymph # (Auto) 1.5 th/mm3 (1.0-4.8); Lymph % (Auto) 21.3 % (9.0-44.0); Mean Corpuscular Hemoglobin 29.7 pg (27.0-34.0); Mean Corpuscular Volume 90.2 fL (80.0-100.0); Mean Platelet Volume 7.1 fL (7.0-11.0); Mono # (Auto) 0.5 th/mm3 (0.0-0.9); Mono % (Auto) 6.5 % (0.0-8.0); Neut # (Auto) 4.7 th/mm3 (1.8-7.7); Neut % (Auto) 65.2 % (16.0-70.0); Platelet Count 325 th/mm3 (150-450); Red Cell Distribution Width 15.9 % (11.6-17.2); White Blood Count 7.2 th/mm3 (4.0-11.0)
[2018-07-20] MEDS: Sod Chloride 0.9% Inj 1,000 ML IV.CONT SCH (11:43)
[2018-07-20] MEDS: Magnesium Oxide 400 MG Tablet PO PRN (11:49)
[2018-07-20] MEDS: Potassium Chloride 25 MEQ Effervescent Tablet PO PRN (11:50)
[2018-07-20 11:53] LABS: Carbon Dioxide 22.1 meq/L (21.0-32.0); Potassium 3.2 meq/L (3.5-5.1)
[2018-07-20 12:11] LABS: Total Protein 5.3 g/dL (6.4-8.2)
[2018-07-20] MEDS ORDERED: PEG 3350/E-Lyte Soln 4000 ML Bottle PO ONE (14:00)
--- NOTE | 2018-07-20 17:50 | P.PNIM ---
Subjective Interval history: 72-year-old female with past medical history of hypertension, hyperlipidemia, atrial fibrillation on chronic anti-coagulation with Eliquis. She recently was admitted to [facility] 06/30/18 with rectal bleeding. She required transfusion of 2 units packed red cells during that admission and subsequent hemoglobin trend was relatively stable.. CT abdomen and pelvis demonstrated diverticulitis versus colitis. She was treated with Levaquin and Flagyl. She was followed by gastroenterology who initially recommended endoscopy however after multiple discussions patient opted to defer on this and gastroenterology recommended follow-up endoscopy in 3-4 weeks as an outpatient. She also had obstructing right ureteral stone and underwent cystoscopy, lithotripsy and ureteral stent 07/06/[address] Amaya. She ultimately was discharged to [facility]. She had lab work that resulted today with hemoglobin of 7.5. She was hypotensive this afternoon with blood pressure in the 80s so repeat lab was drawn and hemoglobin was 6.5 so she was sent to [facility] for evaluation. There Dr. Cunningham did a rectal exam and states the stool was brown with Hemoccult positive. Her hemoglobin is 7.0. Her blood pressure is 80s over 50s with heart rate in the 90s. She has been on metoprolol. She has been back on Eliquis and her last dose was at 9 AM on 07/16/18. She has had ongoing loose stools ever since discharge, usually 1-2 loose stools on average daily, and she was not aware of any blood or melena. She states she has decreased appetite over the last 2-3 days. Denies nausea or vomiting. Although she denied abdominal pain she did have left lower quadrant tenderness on examination. She is afebrile. White blood cell count is 12 with left shift. She was transferred to [facility]. Although packed red cells were ordered, she did not receive any at [facility]. Transfusing 2 units packed red cells now. 07/18: Lying in bed no acute distress no bleeding reported. Hemoglobin 10.4 today. Borderline hypotensive requiring Jose Antonio-Synephrine at 40 mcg/KG/MIN. IV albumin started for hypotension and severe hypoalbuminemia 1.2. Infectious disease following for sepsis from mild diverticulitis versus colitis. Apparently patient is refusing colonoscopy 10/7: Weaned off Jose Antonio-Synephrine. Patient subjectively feels better. Hypotension seems to have improved. ID following. Hemoglobin is 7.9 today down from 9 could be dilutional. No evident GI bleed. Transfuse 1 unit PRBC 07/20. Patient says she is feeling better today. Denies any chest pain or shortness breath. Denies nausea or vomiting. Physical Exam Vital signs: Vital Signs 07/19/18 18:00 07/19/18 18:15 07/19/18 18:30 Temperature Pulse Rate 82 73 87 Respiratory Rate 20 18 21 Blood Pressure 114/59 L 119/62 119/64 Pulse Oximetry 100 100 100 07/19/18 18:45 07/19/18 19:00 07/19/18 19:15 Temperature Pulse Rate 89 134 H Respiratory Rate 22 29 H 25 H Blood Pressure 120/63 132/70 130/66 Pulse Oximetry 100 100 99 07/19/18 19:30 07/19/18 19:54 07/19/18 20:00 Temperature 98 F Pulse Rate 90 173 H 88 Respiratory Rate 28 H 27 H 22 Blood Pressure 127/63 122/62 123/61 Pulse Oximetry 100 100 100 07/19/18 20:15 07/19/18 20:30 07/19/18 20:45 Temperature Pulse Rate 85 89 95 H Respiratory Rate 22 23 22 Blood Pressure 124/58 L 115/56 L 111/61 Pulse Oximetry 99 100 99 07/19/18 21:00 07/19/18 21:15 07/19/18 21:31 Temperature Pulse Rate 91 H 128 H 90 Respiratory Rate 20 26 H 28 H Blood Pressure 114/62 119/63 144/69 H Pulse Oximetry 99 99 97 07/19/18 21:45 07/19/18 22:00 07/19/18 22:15 Temperature Pulse Rate 92 H 81 83 Respiratory Rate 20 17 17 Blood Pressure 116/55 L 104/51 L 106/54 L Pulse Oximetry 99 99 99 07/19/18 22:29 07/19/18 22:30 07/19/18 22:45 Temperature Pulse Rate 82 85 Respiratory Rate 17 20 Blood Pressure 98/55 L 112/57 L Pulse Oximetry 97 95 99 07/19/18 23:00 07/19/18 23:15 07/19/18 23:30 Temperature Pulse Rate 72 74 69 Respiratory Rate 16 15 15 Blood Pressure 108/55 L 107/57 L 108/59 L Pulse Oximetry 97 97 97 07/19/18 23:45 07/20/18 00:00 07/20/18 00:15 Temperature 98.7 F Pulse Rate 86 78 78 Respiratory Rate 15 20 19 Blood Pressure 114/55 L 120/60 117/59 L Pulse Oximetry 96 98 99 07/20/18 00:30 07/20/18 00:45 07/20/18 01:00 Temperature Pulse Rate 73 78 81 Respiratory Rate 20 18 19 Blood Pressure 119/63 132/61 123/60 Pulse Oximetry 98 99 98 07/20/18 01:15 07/20/18 01:30 07/20/18 01:45 Temperature Pulse Rate 75 74 75 Respiratory Rate 20 19 19 Blood Pressure 124/61 117/60 122/57 L Pulse Oximetry 99 99 99 07/20/18 02:00 07/20/18 02:15 07/20/18 02:30 Temperature Pulse Rate 77 78 86 Respiratory Rate 19 19 20 Blood Pressure 123/58 L 121/58 L 122/60 Pulse Oximetry 100 100 98 07/20/18 02:45 07/20/18 03:00 07/20/18 03:15 Temperature Pulse Rate 76 60 76 Respiratory Rate 19 16 19 Blood Pressure 120/59 L 121/56 L 129/62 Pulse Oximetry 100 99 99 07/20/18 03:30 07/20/18 03:45 07/20/18 04:00 Temperature 97.7 F Pulse Rate 83 64 61 Respiratory Rate 21 20 16 Blood Pressure 127/62 124/60 125/61 Pulse Oximetry 99 99 100 07/20/18 04:15 07/20/18 04:30 07/20/18 04:45 Temperature Pulse Rate 61 62 59 L Respiratory Rate 15 15 15 Blood Pressure 119/56 L 117/57 L 112/59 L Pulse Oximetry 98 98 98 07/20/18 05:00 07/20/18 05:15 07/20/18 05:30 Temperature Pulse Rate 75 74 81 Respiratory Rate 20 19 24 Blood Pressure 123/66 121/57 L 126/58 L Pulse Oximetry 98 99 99 07/20/18 05:45 07/20/18 06:00 07/20/18 06:15 Temperature Pulse Rate 70 67 86 Respiratory Rate 18 18 20 Blood Pressure 125/61 125/66 128/68 Pulse Oximetry 100 100 100 07/20/18 06:30 07/20/18 06:45 07/20/18 07:00 Temperature Pulse Rate 75 71 138 H Respiratory Rate 19 24 28 H Blood Pressure 125/66 121/62 129/60 Pulse Oximetry 100 99 98 07/20/18 07:15 07/20/18 07:46 07/20/18 08:00 Temperature Pulse Rate 66 74 80 Respiratory Rate 24 24 19 Blood Pressure 134/62 136/68 134/68 Pulse Oximetry 99 100 99 07/20/18 08:15 07/20/18 08:30 07/20/18 08:45 Temperature Pulse Rate 73 67 65 Respiratory Rate 24 20 19 Blood Pressure 138/60 140/64 137/61 Pulse Oximetry 100 100 100 07/20/18 09:00 07/20/18 09:15 07/20/18 09:30 Temperature Pulse Rate 71 71 68 Respiratory Rate 18 21 22 Blood Pressure 134/65 139/62 131/76 Pulse Oximetry 97 99 100 07/20/18 09:45 07/20/18 10:00 07/20/18 10:15 Temperature Pulse Rate 71 70 Respiratory Rate 23 19 39 H Blood Pressure 136/78 135/71 145/83 H Pulse Oximetry 99 100 98 07/20/18 10:30 07/20/18 10:45 07/20/18 11:00 Temperature Pulse Rate 81 191 H Respiratory Rate 26 H 23 26 H Blood Pressure 159/71 H 143/70 H 148/74 H Pulse Oximetry 99 95 87 L 07/20/18 11:15 07/20/18 11:30 07/20/18 11:45 Temperature Pulse Rate 101 H 80 86 Respiratory Rate 22 20 20 Blood Pressure 147/69 H 134/64 131/62 Pulse Oximetry 100 100 100 07/20/18 12:00 07/20/18 12:15 07/20/18 12:30 Temperature Pulse Rate 78 80 88 Respiratory Rate 21 19 20 Blood Pressure 139/72 137/70 134/65 Pulse Oximetry 100 100 100 07/20/18 12:45 07/20/18 13:00 07/20/18 13:15 Temperature Pulse Rate 72 96 H 83 Respiratory Rate 18 26 H 25 H Blood Pressure 133/63 142/73 H 134/63 Pulse Oximetry 100 100 100 07/20/18 13:30 07/20/18 13:45 07/20/18 14:00 Temperature Pulse Rate 94 H 90 96 H Respiratory Rate 24 18 21 Blood Pressure 137/66 137/65 137/69 Pulse Oximetry 100 99 99 07/20/18 14:15 07/20/18 14:30 07/20/18 14:45 Temperature Pulse Rate 73 95 H 96 H Respiratory Rate 18 24 19 Blood Pressure 136/63 137/65 134/63 Pulse Oximetry 100 99 98 07/20/18 15:00 07/20/18 15:07 07/20/18 15:15 Temperature Pulse Rate 95 H 102 H 103 H Respiratory Rate 26 H 30 H 23 Blood Pressure 124/62 134/69 125/62 Pulse Oximetry 99 99 99 07/20/18 15:30 07/20/18 15:45 07/20/18 16:00 Temperature Pulse Rate 97 H 99 H 84 Respiratory Rate 25 H 21 20 Blood Pressure 131/60 130/70 131/62 Pulse Oximetry 99 100 100 07/20/18 16:15 07/20/18 16:30 07/20/18 16:45 Temperature Pulse Rate 86 91 H 89 Respiratory Rate 22 21 24 Blood Pressure 131/63 133/75 141/70 H Pulse Oximetry 100 100 100 07/20/18 17:00 07/20/18 17:15 Temperature Pulse Rate 97 H 86 Respiratory Rate 22 24 Blood Pressure 141/71 H 136/81 Pulse Oximetry 100 100 Intake & Output 07/19/18 07/20/18 07/20/18 18:59 06:59 18:59 Intake Total 1400 / 1400 1520 / 1520 1200 / 1200 Output Total 100 / 100 Balance 1300 / 1300 1520 / 1520 1200 / 1200 Weight 111 kg Intake: IV 1400 / 1400 920 / 920 1200 / 1200 NS Inj 1,000 ML @ 70 mls/hr IV. 1000 / 1000 1000 / 1000 CONT .[id number] IRVING Rx#:[id number] Flexbumin 25% Inj 100 ML @ 60 100 / 100 100 / 100 100 / 100 mls/hr IV.SIG Q8H IRVING Rx#: [id number] Zosyn 3.375 GM Premix 50 ML @ 100 / 100 100 / 100 100 / 100 100 mls/hr IV.SIG Q6H IRVING Rx#: [id number] KCl 20 mEq Premix Inj 20 meq In 200 / 200 100 ml @ 50 mls/hr IV.SIG Q2H PRN Rx#:[id number] Vancomycin Inj 2,000 MG In NS 540 / 540 Inj 500 ML @ 250 mls/hr IV.SIG ONCE ONE Rx#:[id number] Oral 600 / 600 Intake (Blood Product) Amt 0 / 0 Rbc As-3 Leukoreduced Unit 0 / 0 [id number] Output: Urine 100 / 100 Other: # Voids 2 3 Date of Last Bowel Movement 07/19/18 07/20/18 07/20/18 # Bowel Movements 2 1 Narrative: GENERAL: chronically ill-appearing female. Sitting up in bed. Appears comfortable. SKIN: Warm and dry. HEAD: Normocephalic. EYES: No scleral icterus. No injection or drainage. NECK: Supple, trachea midline. No JVD. CARDIOVASCULAR: Regular rate and rhythm without murmurs, gallops, or rubs. RESPIRATORY: Breath sounds equal bilaterally. No accessory muscle use. GASTROINTESTINAL: Abdomen soft, non-tender, nondistended. MUSCULOSKELETAL: No cyanosis. Trace edema. BACK: Nontender without obvious deformity. No CVA tenderness. Results - Labs CBC & Chem 7: 07/20/18 10:37 07/20/18 10:37 Laboratory Results - last 24 hr 07/19/18 07/20/18 07/20/18 19:54 05:37 10:37 WBC 7.2 RBC 3.30 L Hgb 9.8 L Hct 29.8 L MCV 90.2 MCH 29.7 MCHC 33.0 RDW 15.9 Plt Count 325 MPV 7.1 Neut % (Auto) 65.2 Lymph % (Auto) 21.3 Cedar % (Auto) 6.5 Eos % (Auto) 6.0 H Baso % (Auto) 1.0 Neut # (Auto) 4.7 Lymph # (Auto) 1.5 Cedar # (Auto) 0.5 Eos # (Auto) 0.4 Baso # (Auto) 0.1 WBC Differential . Differential Comment Auto diff final Sodium 146 H Potassium 3.8 3.3 L Chloride 117 H Carbon Dioxide 19.5 L Anion Gap 10 BUN 12 Creatinine 0.88 Estimated GFR 63 L Random Glucose 75 Calcium 7.1 L* Prot Corrected Calcium 8.3 L Magnesium 1.4 L Total Bilirubin 1.4 H AST 20 ALT 11 Alkaline Phosphatase 216 H Total Protein 4.9 L Albumin 2.3 L 07/20/18 10:37 WBC RBC Hgb Hct MCV MCH MCHC RDW Plt Count MPV Neut % (Auto) Lymph % (Auto) Cedar % (Auto) Eos % (Auto) Baso % (Auto) Neut # (Auto) Lymph # (Auto) Cedar # (Auto) Eos # (Auto) Baso # (Auto) WBC Differential Differential Comment Sodium 149 H Potassium 3.2 L Chloride 117 H Carbon Dioxide 22.1 Anion Gap 10 BUN 12 Creatinine 0.91 Estimated GFR 61 L Random Glucose 69 L Calcium 7.0 L* Prot Corrected Calcium 7.9 L Magnesium Total Bilirubin AST ALT Alkaline Phosphatase Total Protein 5.3 L Albumin Microbiology 07/17/18 11:03 Blood - Peripheral Aerobic Blood Culture - Preliminary No growth in 3 days 07/17/18 11:03 Blood - Peripheral Anaerobic Blood Culture - Preliminary No growth in 3 days 07/17/18 11:09 Blood - Peripheral Aerobic Blood Culture - Preliminary No growth in 3 days 07/17/18 11:09 Blood - Peripheral Anaerobic Blood Culture - Preliminary No growth in 3 days Assessment and Plan - Plan === 07/20/18 //Acute blood loss anemia //Hemorrhagic disorder due to anticoagulation = INR corrected. Hemoglobin improved after transfusion. 9.8 today. GI following. Appreciate assistance. Continue to monitor. //Acute diverticulitis. //Severe sepsis with septic shock on admission Continue IV antibiotics as per infectious disease and gastroenterology. //History of atrial fibrillation. We'll add back metoprolol. //Hypokalemia //Hypomagnesemia Potassium 3.2. Magnesium 1.4. Replace. //Hyponatremia. Sodium 149. Place on D5 with potassium. Monitor. NEURO: Lortab as needed for pain. Morphine as needed for breakthrough pain. Generalized weakness PT consult RESP: RA. IS q 1hour CV: Hypotension secondary to symptomatic anemia, sepsis-Resolved Essential hypertension Hold aspirin 81 mg p.o. daily. Hold Eliquis 2.5 mg p.o. twice daily. Hold metoprolol 100 mg p.o. every 12 hours (last dose was 07/16 at 09:00) Hold Bumex 1 mg p.o. daily Transfuse as per below Jose Antonio-Synephrine titrate to maintain mean arterial pressure greater than 65, now weaned off Troponin negative. Continue IV albumin 25 g IV every 8 hours for total 2 days GI/HEME/ID: Acute diverticulitis Severe sepsis Her clinical symptoms are suggestive of acute diverticulitis with left lower quadrant tenderness and leukocytosis. Previous CT 06/[address] abdomen-Persistent pericolic inflammatory changes involving the distal transverse colon and descending colon consistent with acute diverticulitis or colitis. Extensive subcutaneous fluid/edema is noted involving the left lateral abdominal wall and is worse than on the previous examination. US to evaluate abdominal wall fluid collection-showed subcutaneous edema Neg C diff. Continue Zosyn per ID Protonix 40 mg IV q12. Anemia and Heme + stools Transfuse 1 unit additional PRBC today GI following. Patient refuses colonoscopy Coagulopathy Holding Eliquis, last dose 07/16 9 am. s/p Vitamin K 10 mg subcut, 2 units FFP. F /u coags and hgb, -Kcentra held off as pt clinically does not appear to have active hemorrhage. FEN/RENAL: URDY overlying CKD stage III Monitor intake and output. Monitor creatinine. Monitor electrolytes and replace as indicated IV NS 70 ml per hour ENDO: Euglycemic PROPH: SCDs for DVT prophylaxis. No pharmacologic DVT prophylaxis at this time due to bleeding. Protonix as per above. ACCESS: Multiple peripheral IVs providing adequate access at this time. Discussed Condition With: patient, nurse.
[2018-07-20] MEDS: Metoprolol Tartrate 25 MG Tablet PO SCH (20:07)
[2018-07-20] MEDS: KCL 20 mEq/Dextrose 5% Inj 1,000 ML IV.CONT SCH (20:07)
[2018-07-20] MEDS: Vancomycin Inj 1,500 MG in Sodium Chlor 0.9% Inj 500 ML IV.SIG SCH (21:32)
[2018-07-21] MEDS: Piperacil/Tazo 3.375 GM Premix 50 ML IV.SIG SCH ×4 (04:51→21:12)
[2018-07-21] MEDS: Chlorhexidine Gluconate 2% 1 Pack (2 Cloths) TOPICAL SCH (04:51)
[2018-07-21 08:13] LABS: Baso # (Auto) 0.1 th/mm3 (0.0-0.2); Baso % (Auto) 0.8 % (0.0-2.0); Eos # (Auto) 0.4 th/mm3 (0.0-0.4); Eos % (Auto) 5.3 % (0.0-4.0); Hematocrit 32.6 % (35.0-46.0); Hemoglobin 10.7 gm/dL (11.6-15.3); Lymph # (Auto) 1.8 th/mm3 (1.0-4.8); Lymph % (Auto) 24.9 % (9.0-44.0); Mean Corpuscular HGB Conc 32.8 % (32.0-36.0); Mean Corpuscular Hemoglobin 29.9 pg (27.0-34.0); Mono # (Auto) 0.5 th/mm3 (0.0-0.9); Mono % (Auto) 6.6 % (0.0-8.0); Neut # (Auto) 4.4 th/mm3 (1.8-7.7); Neut % (Auto) 62.4 % (16.0-70.0); Platelet Count 336 th/mm3 (150-450); Red Blood Count 3.59 mil/mm3 (4.00-5.30); Red Cell Distribution Width 15.8 % (11.6-17.2); White Blood Count 7.1 th/mm3 (4.0-11.0)
[2018-07-21 08:36] LABS: Albumin 2.4 g/dL (3.4-5.0); Calcium 7.7 mg/dL (8.5-10.1); Carbon Dioxide 21.3 meq/L (21.0-32.0); Magnesium 1.3 mg/dL (1.5-2.5); Potassium 3.4 meq/L (3.5-5.1)
[2018-07-21 08:42] LABS: Phosphorus 2.2 mg/dL (2.5-4.9)
[2018-07-21] MEDS: Pantoprazole Inj 40 MG Vial IV.PUSH SCH ×2 (08:45→20:25)
[2018-07-21] MEDS: Metoprolol Tartrate 25 MG Tablet PO SCH (08:46)
--- NOTE | 2018-07-21 11:56 | GIPROC ---
[facility] [address] [facility]. [facility] [place], [address] COLONOSCOPY PROCEDURE REPORT EXAM DATE: 07/21/2018 PATIENT NAME: Jolene Urena MR #: [id number] BIRTHDATE: 1945 ENDOSCOPIST: Fausto Montanez MD ORDER #: [id number] [employer] LOAN PROCESSING CLERK: Sue Butt and Sana Maki STATUS: inpatient INDICATIONS: The patient is a 73 yr old female here for a colonoscopy due to iron deficiency anemia and hematochezia PROCEDURE PERFORMED: Colonoscopy with biopsy MEDICATIONS: None and Per Anesthesia. PREP QUALITY: The Irving Bowel Prep Score was Right colon 2, Mid colon 2, and Left colon 2. Total = 6. PREP TYPE:GoLytely PREP TYPE:Type: ESTIMATED BLOOD LOSS: None CONSENT: The patient understands the risks and benefits of the procedure and understands that these risks include, but are not limited to: sedation, allergic reaction, infection, perforation and/or bleeding. Alternative means of evaluation and treatment include, among others: physical exam, x-rays, and/or surgical intervention. The patient elects to proceed with this endoscopic procedure. medical equipment was checked for proper function. Hand hygiene and appropriate measures for infection prevention was taken. After the risks, benefits and alternatives of the procedure were thoroughly explained, Informed consent was verified, confirmed and timeout was successfully executed by the treatment team. A digital exam revealed external hemorrhoids The Pentax [id number] endoscope was introduced through the anus and advanced to the cecum, which was identified by both the appendix and ileocecal valve. The instrument was then slowly withdrawn as the colon was fully examined. COLON FINDINGS: Moderate diverticulosis was noted in the sigmoid colon. No bleeding was noted from the diverticulosis. A circumferential diffuse patch of colitis was found in the transverse colon, descending colon, and sigmoid colon. The mucosa was congested, edematous, erythematous, friable, nodular and had granularity. Multiple biopsies were performed using cold forceps. Retroflexed views revealed internal hemorrhoids and Retroflexed views revealed small internal hemorrhoids The scope was then completely withdrawn from the patient and the procedure terminated. PROCEDURE WITHDRAWAL TIME:6minutes ADVERSE EVENTS: There were no complications. IMPRESSIONS: 1. Moderate diverticulosis was noted in the sigmoid colon 2. Circumferential diffuse colitis was found in the transverse colon, descending colon, and sigmoid colon; The mucosa was congested, edematous, erythematous, friable, nodular and had granularity; multiple biopsies were performed using cold forceps 3. Retroflexed views revealed internal hemorrhoids 4. Retroflexed views revealed small internal hemorrhoids 5. Revealed external hemorrhoids RECOMMENDATIONS: 1. Await biopsy results. Biopsy results will not be ready for 7-10 days. If you don't hear from us in two weeks, call our office for results. 2. Continue surveillance 3. Yearly hemoccult 4. No seeds, nuts and popcorn in diet RECALL: Return 1 month Colonoscopy, pending biopsy results Fausto Montanez MD eSigned: Fausto Montanez MD 07/21/2018 11:55 AM cc: PATIENT NAME: Jolene Urena MR#: [id number]
[2018-07-21] MEDS ORDERED: Metoprolol Tartrate 25 MG Tablet PO ONE (12:56)
--- NOTE | 2018-07-21 16:28 | ECG ---
Date Performed: 07/21/2018 Time Performed: 05:37:16 PTAGE: 73 years EKG: Probable Sinus rhythm ;however atrial rhythm is indeterminate due to significant baseline artifact Low QRS voltages in prec ordial leads Clinical correlation is recommended Borderline ECG PREVIOUS TRACING 06/20/2018 @ 15.04 DOCTOR: Lan Jacobsen Interpretating Date/Time 07/21/2018 16:27:24
--- NOTE | 2018-07-21 18:19 | P.PNADD ---
Addendum to Inpatient Note Additional information: Pt seen aound 1800 full note to follow juan RN coloniscopy results noted vanco po started P path results
[2018-07-21] MEDS ORDERED: Mag Sulf 1 gm/100 ml Premix 100 ML IV.SIG ONE (18:43)
--- NOTE | 2018-07-21 18:47 | P.PNIM ---
Subjective Interval history: patient says she is feeling a little better today. Denies any chest or shortness breath. Denies abdominal pain. Physical Exam Vital signs: Vital Signs 07/20/18 19:00 07/20/18 20:00 07/20/18 21:00 Temperature 97.9 F Pulse Rate 94 H 86 80 Respiratory Rate 25 H 26 H 21 Blood Pressure 140/60 146/67 H 135/61 Pulse Oximetry 99 100 100 07/20/18 22:00 07/20/18 23:00 07/21/18 00:00 Temperature 98.2 F Pulse Rate 78 80 88 Respiratory Rate 19 24 23 Blood Pressure 148/67 H 145/67 H 147/75 H Pulse Oximetry 100 100 100 07/21/18 01:00 07/21/18 02:00 07/21/18 03:00 Temperature Pulse Rate 75 77 91 H Respiratory Rate 19 21 20 Blood Pressure 137/87 130/65 132/69 Pulse Oximetry 97 100 100 07/21/18 04:00 07/21/18 05:00 07/21/18 06:00 Temperature 97.9 F Pulse Rate 75 79 76 Respiratory Rate 19 20 20 Blood Pressure 132/67 130/68 136/72 Pulse Oximetry 100 99 100 07/21/18 07:00 07/21/18 08:00 07/21/18 09:00 Temperature 97.6 F 97.7 F 97.8 F Pulse Rate 85 109 H 82 Respiratory Rate 22 Blood Pressure 124/70 115/59 L 102/79 Pulse Oximetry 96 99 98 07/21/18 10:00 Temperature 97.9 F Pulse Rate 121 H Respiratory Rate Blood Pressure 108/97 H Pulse Oximetry 97 Intake & Output 07/20/18 07/21/18 07/21/18 18:59 06:59 18:59 Intake Total 1600 / 1600 4615 / 4615 250 / 250 Balance 1600 / 1600 4615 / 4615 250 / 250 Weight 114.5 kg Intake: IV 1600 / 1600 615 / 615 50 / 50 NS Inj 1,000 ML @ 70 mls/hr IV. 1000 / 1000 CONT .[id number] IRVING Rx#:[id number] Flexbumin 25% Inj 100 ML @ 60 200 / 200 mls/hr IV.SIG Q8H IRVING Rx#: [id number] Zosyn 3.375 GM Premix 50 ML @ 150 / 150 100 / 100 50 / 50 100 mls/hr IV.SIG Q6H IRVING Rx#: [id number] Vancomycin Inj 1,500 MG In NS 515 / 515 Inj 500 ML @ 250 mls/hr IV.SIG Q24H IRVING Rx#:[id number] Oral 4000 / 4000 Anesthesia Amount 200 / 200 Other: # Voids 2 3 Date of Last Bowel Movement 07/20/18 07/21/18 07/21/18 # Bowel Movements 3 6 Narrative: GENERAL: chronically ill-appearing female. Sitting up in bed. Appears comfortable.no change on examination today. SKIN: Warm and dry. HEAD: Normocephalic. EYES: No scleral icterus. No injection or drainage. NECK: Supple, trachea midline. No JVD. CARDIOVASCULAR: Regular rate and rhythm without murmurs, gallops, or rubs. RESPIRATORY: Breath sounds equal bilaterally. No accessory muscle use. GASTROINTESTINAL: Abdomen soft, non-tender, nondistended. MUSCULOSKELETAL: No cyanosis. Trace edema. BACK: Nontender without obvious deformity. No CVA tenderness. Results - Labs CBC & Chem 7: 07/21/18 07:35 07/21/18 07:35 Laboratory Results - last 24 hr 07/21/18 07/21/18 07:35 07:35 WBC 7.1 RBC 3.59 L Hgb 10.7 L Hct 32.6 L MCV 91.0 MCH 29.9 MCHC 32.8 RDW 15.8 Plt Count 336 MPV 7.0 Neut % (Auto) 62.4 Lymph % (Auto) 24.9 Sharp % (Auto) 6.6 Eos % (Auto) 5.3 H Baso % (Auto) 0.8 Neut # (Auto) 4.4 Lymph # (Auto) 1.8 Sharp # (Auto) 0.5 Eos # (Auto) 0.4 Baso # (Auto) 0.1 WBC Differential . Differential Comment Auto diff final Sodium 146 H Potassium 3.4 L Chloride 114 H Carbon Dioxide 21.3 Anion Gap 11 BUN 9 Creatinine 0.74 Estimated GFR 77 L Random Glucose 74 Calcium 7.7 L Phosphorus 2.2 L Magnesium 1.3 L Albumin 2.4 L Microbiology 07/17/18 11:03 Blood - Peripheral Aerobic Blood Culture - Preliminary No growth in 4 days 07/17/18 11:03 Blood - Peripheral Anaerobic Blood Culture - Preliminary No growth in 4 days 07/17/18 11:09 Blood - Peripheral Aerobic Blood Culture - Preliminary No growth in 4 days 07/17/18 11:09 Blood - Peripheral Anaerobic Blood Culture - Preliminary No growth in 4 days Assessment and Plan - Plan === 07/21/18 //Acute blood loss anemia //Hemorrhagic disorder due to anticoagulation = hemoglobin stable. Appreciate GI assistance //Acute diverticulitis. //Severe sepsis with septic shock on admission //suspected C. difficile colitis Continue IV antibiotics as per infectious disease and gastroenterology.despite negative C. difficile on admission =pathology pending from colonoscopy today. Vanco by mouth. //History of atrial fibrillation. heart rate controlled metoprolol. //Hypokalemia //Hypomagnesemia magnesium 1.3, potassium 3.4. Replace. //Hyponatremia. Sodium improving. Continue D5 fluids at low rate. Continue to monitor. NEURO: Lortab as needed for pain. Morphine as needed for breakthrough pain. Generalized weakness PT consult RESP: RA. IS q 1hour CV: Hypotension secondary to symptomatic anemia, sepsis-Resolved Essential hypertension Hold aspirin 81 mg p.o. daily. Hold Eliquis 2.5 mg p.o. twice daily. Hold metoprolol 100 mg p.o. every 12 hours (last dose was 07/16 at 09:00) Hold Bumex 1 mg p.o. daily Transfuse as per below Jose Antonio-Synephrine titrate to maintain mean arterial pressure greater than 65, now weaned off Troponin negative. Continue IV albumin 25 g IV every 8 hours for total 2 days GI/HEME/ID: Acute diverticulitis Severe sepsis Her clinical symptoms are suggestive of acute diverticulitis with left lower quadrant tenderness and leukocytosis. Previous CT 06/[address] abdomen-Persistent pericolic inflammatory changes involving the distal transverse colon and descending colon consistent with acute diverticulitis or colitis. Extensive subcutaneous fluid/edema is noted involving the left lateral abdominal wall and is worse than on the previous examination. US to evaluate abdominal wall fluid collection-showed subcutaneous edema Neg C diff. Continue Zosyn per ID Protonix 40 mg IV q12. Anemia and Heme + stools Transfuse 1 unit additional PRBC today GI following. Patient refuses colonoscopy Coagulopathy Holding Eliquis, last dose 07/16 9 am. s/p Vitamin K 10 mg subcut, 2 units FFP. F /u coags and hgb, -Kcentra held off as pt clinically does not appear to have active hemorrhage. FEN/RENAL: RUDY overlying CKD stage III Monitor intake and output. Monitor creatinine. Monitor electrolytes and replace as indicated IV NS 70 ml per hour ENDO: Euglycemic PROPH: SCDs for DVT prophylaxis. No pharmacologic DVT prophylaxis at this time due to bleeding. Protonix as per above. ACCESS: Multiple peripheral IVs providing adequate access at this time. Discharge Planning: hopefully to SNF when cleared by infectious disease, gastroenterology.
[2018-07-21] MEDS: Metoprolol Tartrate 50 MG Tablet PO SCH (20:26)
[2018-07-21] MEDS: Vancomycin Inj 1,500 MG in Sodium Chlor 0.9% Inj 500 ML IV.SIG SCH (21:12)
[2018-07-21] MEDS: KCL 20 mEq/Dextrose 5% Inj 1,000 ML IV.CONT SCH (22:14)
--- NOTE | 2018-07-21 23:32 | P.PNID ---
Subjective Remarks: feeling better UA abnormal, clx + for MRSA afebrile sp colonoscopy 07/21: Circumferential diffuse colitis was found in the transverse colon, descending colon, and sigmoid colon; The mucosa was congested, edematous, erythematous, friable, nodular and had granularity; multiple biopsies were performed using cold forceps Antibiotics: zosyn IV vancomycin Allergies/Adverse Reactions: Allergies erythromycin base Allergy (Verified 07/16/18 22:20) Diarrhea Objective Vital Signs 07/21/18 00:00 07/21/18 01:00 07/21/18 02:00 Temperature 98.2 F Pulse Rate 88 75 77 Respiratory Rate 23 19 21 Blood Pressure 147/75 H 137/87 130/65 Pulse Oximetry 100 97 100 07/21/18 03:00 07/21/18 04:00 07/21/18 05:00 Temperature 97.9 F Pulse Rate 91 H 75 79 Respiratory Rate 20 19 20 Blood Pressure 132/69 132/67 130/68 Pulse Oximetry 100 100 99 07/21/18 06:00 07/21/18 07:00 07/21/18 08:00 Temperature 97.6 F 97.7 F Pulse Rate 76 85 109 H Respiratory Rate 20 22 Blood Pressure 136/72 124/70 115/59 L Pulse Oximetry 100 96 99 07/21/18 09:00 07/21/18 10:00 07/21/18 11:00 Temperature 97.8 F 97.9 F 98.2 F Pulse Rate 82 121 H 78 Respiratory Rate Blood Pressure 102/79 108/97 H 144/79 H Pulse Oximetry 98 97 95 07/21/18 12:00 07/21/18 13:00 07/21/18 14:00 Temperature 97.8 F 98.1 F 97.9 F Pulse Rate 86 82 102 H Respiratory Rate Blood Pressure 143/84 H 130/70 137/78 Pulse Oximetry 96 92 L 97 07/21/18 15:00 07/21/18 16:00 07/21/18 17:00 Temperature 97.7 F 97.9 F 97.8 F Pulse Rate 121 H 105 H 90 Respiratory Rate Blood Pressure 133/68 132/75 121/66 Pulse Oximetry 98 97 98 07/21/18 18:00 07/21/18 19:00 07/21/18 20:00 Temperature 98.0 F 97.9 F Pulse Rate 97 H 98 H 91 H Respiratory Rate 24 22 Blood Pressure 123/73 127/62 142/72 H Pulse Oximetry 98 98 99 07/21/18 21:00 07/21/18 22:00 07/21/18 23:00 Temperature Pulse Rate 88 82 73 Respiratory Rate 21 19 19 Blood Pressure 125/67 117/71 122/72 Pulse Oximetry 99 100 98 Intake & Output 07/21/18 07/21/18 07/22/18 06:59 18:59 06:59 Intake Total 4615 / 4615 540 / 540 1050 / 1050 Balance 4615 / 4615 540 / 540 1050 / 1050 Weight 114.5 kg Intake: IV 615 / 615 100 / 100 1050 / 1050 D5W + KCL 20 mEq Inj 1,000 ML @ 1000 / 1000 42 mls/hr IV.CONT .[id number] [facility] Rx#:[id number] Zosyn 3.375 GM Premix 50 ML @ 100 / 100 100 / 100 50 / 50 100 mls/hr IV.SIG Q6H [facility] Rx#: [id number] Vancomycin Inj 1,500 MG In NS 515 / 515 Inj 500 ML @ 250 mls/hr IV.SIG Q24H [facility] Rx#:[id number] Oral 4000 / 4000 240 / 240 Anesthesia Amount 200 / 200 Other: # Voids 3 1 Date of Last Bowel Movement 07/21/18 07/21/18 07/21/18 # Bowel Movements 6 1 07/17/18 11:03 Blood - Peripheral Aerobic Blood Culture - Preliminary No growth in 4 days 07/17/18 11:03 Blood - Peripheral Anaerobic Blood Culture - Preliminary No growth in 4 days 07/17/18 11:09 Blood - Peripheral Aerobic Blood Culture - Preliminary No growth in 4 days 07/17/18 11:09 Blood - Peripheral Anaerobic Blood Culture - Preliminary No growth in 4 days 07/17/18 20:35 Clean Catch Urine Urine Culture - Final S. aureus MRSA Lab - Hematology Results 07/20/18 07/21/18 10:37 07:35 WBC 7.2 7.1 RBC 3.30 L 3.59 L Hgb 9.8 L 10.7 L Hct 29.8 L 32.6 L MCV 90.2 91.0 MCH 29.7 29.9 MCHC 33.0 32.8 RDW 15.9 15.8 Plt Count 325 336 MPV 7.1 7.0 Neut % (Auto) 65.2 62.4 Lymph % (Auto) 21.3 24.9 [place] % (Auto) 6.5 6.6 Eos % (Auto) 6.0 H 5.3 H Baso % (Auto) 1.0 0.8 Neut # (Auto) 4.7 4.4 Lymph # (Auto) 1.5 1.8 [place] # (Auto) 0.5 0.5 Eos # (Auto) 0.4 0.4 Baso # (Auto) 0.1 0.1 WBC Differential . . Differential Comment Auto diff final Auto diff final Lab - Chemistry Results 07/20/18 07/20/18 07/21/18 05:37 10:37 07:35 Sodium 146 H 149 H 146 H Potassium 3.3 L 3.2 L 3.4 L Chloride 117 H 117 H 114 H Carbon Dioxide 19.5 L 22.1 21.3 Anion Gap 10 10 11 BUN 12 12 9 Creatinine 0.88 0.91 0.74 Estimated GFR 63 L 61 L 77 L Random Glucose 75 69 L 74 Calcium 7.1 L* 7.0 L* 7.7 L Prot Corrected Calcium 8.3 L 7.9 L Phosphorus 2.2 L Magnesium 1.4 L 1.3 L Total Bilirubin 1.4 H AST 20 ALT 11 Alkaline Phosphatase 216 H Total Protein 4.9 L 5.3 L Albumin 2.3 L 2.4 L Imaging: ITS Impressions Abdomen/Pelvis CT 07/17/18 00:00 CONCLUSION: 1. Persistent pericolic inflammatory changes involving the distal transverse colon and descending colon consistent with acute diverticulitis or colitis. 2. Extensive subcutaneous fluid/edema is noted involving the left lateral abdominal wall and is worse than on the previous examination. 3. Multiple calcified nonobstructing bilateral renal calculi. 4. Cholelithiasis. 5. Ventral abdominal wall hernia containing only fat. 6. Degenerative changes and scoliosis of the thoracolumbar spine. 7. 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 8. Posterior bibasilar atelectasis. 9. Stable left renal cysts. Abdomen Ultrasound 07/18/18 00:00 CONCLUSION: Soft tissue edema. Chest X-Ray 07/19/18 06:00 CONCLUSION: Bilateral infiltrates Physical Exam: GENERAL: NAD SKIN: Warm and dry. HEAD: Atraumatic. Normocephalic. EYES: Pupils equal and round. No scleral icterus. No injection or drainage. ENT: No nasal bleeding or discharge. Mucous membranes pink and moist. NECK: Trachea midline. No JVD. CARDIOVASCULAR: Regular rate and rhythm. RESPIRATORY: No accessory muscle use. Clear to auscultation. Breath sounds equal bilaterally. GASTROINTESTINAL: Abdomen soft, not tender , nondistended. Hepatic and splenic margins not palpable. MUSCULOSKELETAL: Extremities without clubbing, cyanosis, no significant edema. No obvious deformities. NEUROLOGICAL: Awake and alert. No obvious cranial nerve deficits. Motor grossly within normal limits. Five out of 5 muscle strength in the arms and legs. Normal speech. PSYCHIATRIC: c saul , coopertive Assessment and Plan - Plan Diverticulitis vs colitis with rectal bleeding - c.diff negative Pt needs colonoscopy but she is not agreable Leukocytosis, extreme bandemia - [place] 2/2 GI/ source MRSA UTI vs secondary bacteriuria colitis on colonsocopy cont zosyn cont vancomycin IV - pharmacy to dose start PO vancomycin P result of path
[2018-07-22] MEDS: Piperacil/Tazo 3.375 GM Premix 50 ML IV.SIG SCH ×4 (04:03→21:29)
[2018-07-22] MEDS: Chlorhexidine Gluconate 2% 1 Pack (2 Cloths) TOPICAL SCH (04:04)
[2018-07-22 08:21] LABS: Baso # (Auto) 0.2 th/mm3 (0.0-0.2); Baso % (Auto) 2.5 % (0.0-2.0); Eos # (Auto) 0.3 th/mm3 (0.0-0.4); Eos % (Auto) 4.9 % (0.0-4.0); Hematocrit 32.1 % (35.0-46.0); Hemoglobin 10.7 gm/dL (11.6-15.3); Lymph # (Auto) 2.2 th/mm3 (1.0-4.8); Lymph % (Auto) 36.9 % (9.0-44.0); Mean Corpuscular HGB Conc 33.4 % (32.0-36.0); Mean Corpuscular Hemoglobin 29.7 pg (27.0-34.0); Mean Corpuscular Volume 88.9 fL (80.0-100.0); Mean Platelet Volume 7.1 fL (7.0-11.0); Mono # (Auto) 0.2 th/mm3 (0.0-0.9); Mono % (Auto) 3.6 % (0.0-8.0); Neut # (Auto) 3.1 th/mm3 (1.8-7.7); Neut % (Auto) 52.1 % (16.0-70.0); Platelet Count 335 th/mm3 (150-450); Red Blood Count 3.61 mil/mm3 (4.00-5.30); Red Cell Distribution Width 16.1 % (11.6-17.2)
--- NOTE | 2018-07-22 08:28 | P.PNIM ---
Subjective Interval history: Says she is feeling better today. Denies any abdominal pain. Says diarrhea is improving. Denies any chest pain or shortness of breath. Physical Exam Vital signs: Vital Signs 07/21/18 09:00 07/21/18 10:00 07/21/18 11:00 Temperature 97.8 F 97.9 F 98.2 F Pulse Rate 82 121 H 78 Respiratory Rate Blood Pressure 102/79 108/97 H 144/79 H Pulse Oximetry 98 97 95 07/21/18 12:00 07/21/18 13:00 07/21/18 14:00 Temperature 97.8 F 98.1 F 97.9 F Pulse Rate 86 82 102 H Respiratory Rate Blood Pressure 143/84 H 130/70 137/78 Pulse Oximetry 96 92 L 97 07/21/18 15:00 07/21/18 16:00 07/21/18 17:00 Temperature 97.7 F 97.9 F 97.8 F Pulse Rate 121 H 105 H 90 Respiratory Rate Blood Pressure 133/68 132/75 121/66 Pulse Oximetry 98 97 98 07/21/18 18:00 07/21/18 19:00 07/21/18 20:00 Temperature 98.0 F 97.9 F Pulse Rate 97 H 98 H 91 H Respiratory Rate 24 22 Blood Pressure 123/73 127/62 142/72 H Pulse Oximetry 98 98 99 07/21/18 21:00 07/21/18 22:00 07/21/18 23:00 Temperature Pulse Rate 88 82 73 Respiratory Rate 21 19 19 Blood Pressure 125/67 117/71 122/72 Pulse Oximetry 99 100 98 07/22/18 00:00 07/22/18 01:00 07/22/18 02:00 Temperature 98.2 F Pulse Rate 82 77 76 Respiratory Rate 20 26 H 16 Blood Pressure 140/74 145/80 H 130/68 Pulse Oximetry 99 98 95 07/22/18 03:00 07/22/18 04:00 07/22/18 05:00 Temperature 98.0 F Pulse Rate 64 72 78 Respiratory Rate 14 16 18 Blood Pressure 130/68 129/75 136/78 Pulse Oximetry 96 97 100 07/22/18 06:00 07/22/18 07:00 Temperature 97.5 F L Pulse Rate 68 73 Respiratory Rate 15 16 Blood Pressure 137/75 138/75 Pulse Oximetry 99 100 Intake & Output 07/21/18 07/22/18 07/22/18 18:59 06:59 18:59 Intake Total 540 / 540 1855 / 1855 100 / 100 Balance 540 / 540 1855 / 1855 100 / 100 Weight 119 kg Intake: IV 100 / 100 1615 / 1615 100 / 100 D5W + KCL 20 mEq Inj 1,000 ML @ 1000 / 1000 42 mls/hr IV.CONT .[id number] [facility] Rx#:[id number] Magnesium Sulfate 1 gm/D5W 100 100 / 100 ml Premix 100 ML @ 100 mls/hr IV.SIG ONCE ONE Rx#:[id number] Zosyn 3.375 GM Premix 50 ML @ 100 / 100 100 / 100 100 mls/hr IV.SIG Q6H [facility] Rx#: [id number] Vancomycin Inj 1,500 MG In NS 515 / 515 Inj 500 ML @ 250 mls/hr IV.SIG Q24H [facility] Rx#:[id number] Oral 240 / 240 240 / 240 Anesthesia Amount 200 / 200 Other: # Voids 1 3 Date of Last Bowel Movement 07/21/18 07/22/18 # Bowel Movements 1 3 Narrative: GENERAL: chronically ill-appearing female. Sitting up in bed. Appears comfortable.no change. SKIN: Warm and dry. HEAD: Normocephalic. EYES: No scleral icterus. No injection or drainage. NECK: Supple, trachea midline. No JVD. CARDIOVASCULAR: Regular rate and rhythm without murmurs, gallops, or rubs. RESPIRATORY: Breath sounds equal bilaterally. No accessory muscle use. GASTROINTESTINAL: Abdomen soft, non-tender, nondistended. MUSCULOSKELETAL: No cyanosis. Trace edema. BACK: Nontender without obvious deformity. No CVA tenderness. Results - Labs CBC & Chem 7: 07/22/18 05:20 07/21/18 07:35 Laboratory Results - last 24 hr 07/21/18 07/22/18 07:35 05:20 WBC 6.0 RBC 3.61 L Hgb 10.7 L Hct 32.1 L MCV 88.9 MCH 29.7 MCHC 33.4 RDW 16.1 Plt Count 335 MPV 7.1 Neut % (Auto) 52.1 Lymph % (Auto) 36.9 [place] % (Auto) 3.6 Eos % (Auto) 4.9 H Baso % (Auto) 2.5 H Neut # (Auto) 3.1 Lymph # (Auto) 2.2 [place] # (Auto) 0.2 Eos # (Auto) 0.3 Baso # (Auto) 0.2 WBC Differential . Differential Comment Auto diff final Sodium 146 H Potassium 3.4 L Chloride 114 H Carbon Dioxide 21.3 Anion Gap 11 BUN 9 Creatinine 0.74 Estimated GFR 77 L Random Glucose 74 Calcium 7.7 L Phosphorus 2.2 L Magnesium 1.3 L Albumin 2.4 L Microbiology 07/17/18 11:03 Blood - Peripheral Aerobic Blood Culture - Preliminary No growth in 4 days 07/17/18 11:03 Blood - Peripheral Anaerobic Blood Culture - Preliminary No growth in 4 days 07/17/18 11:09 Blood - Peripheral Aerobic Blood Culture - Preliminary No growth in 4 days 07/17/18 11:09 Blood - Peripheral Anaerobic Blood Culture - Preliminary No growth in 4 days Assessment and Plan - Plan === 07/21/18 //Acute blood loss anemia //Hemorrhagic disorder due to anticoagulation = Hemoglobin 10.7. Stable. Continue to monitor. //Acute diverticulitis. //Severe sepsis with septic shock on admission //suspected C. difficile colitis Continue IV antibiotics as per infectious disease and gastroenterology.despite negative C. difficile on admission =pathology pending from colonoscopy today. Vanco by mouth. = C. difficile testing on admission negative, however colonoscopy suspicious for C. difficile. Continue Vanco, IV antibiotics as per infectious disease. Follow-up pathology from colonoscopy //History of atrial fibrillation. heart rate controlled metoprolol. //Hypokalemia //Hypomagnesemia magnesium 1.3, potassium 3.4. Replace. = 07/22. Follow-up magnesium, phosphorus, potassium on repeat labs //Hyponatremia. Sodium improving. Continue D5 fluids at low rate. Continue to monitor. = Follow-up today's labs. NEURO: Lortab as needed for pain. Morphine as needed for breakthrough pain. Generalized weakness PT consult RESP: RA. IS q 1hour CV: Hypotension secondary to symptomatic anemia, sepsis-Resolved Essential hypertension Hold aspirin 81 mg p.o. daily. Hold Eliquis 2.5 mg p.o. twice daily. Hold metoprolol 100 mg p.o. every 12 hours (last dose was 07/16 at 09:00) Hold Bumex 1 mg p.o. daily Transfuse as per below Jose Antonio-Synephrine titrate to maintain mean arterial pressure greater than 65, now weaned off Troponin negative. Continue IV albumin 25 g IV every 8 hours for total 2 days GI/HEME/ID: Acute diverticulitis Severe sepsis Her clinical symptoms are suggestive of acute diverticulitis with left lower quadrant tenderness and leukocytosis. Previous CT 06/[address] abdomen-Persistent pericolic inflammatory changes involving the distal transverse colon and descending colon consistent with acute diverticulitis or colitis. Extensive subcutaneous fluid/edema is noted involving the left lateral abdominal wall and is worse than on the previous examination. US to evaluate abdominal wall fluid collection-showed subcutaneous edema Neg C diff. Continue Zosyn per ID Protonix 40 mg IV q12. Anemia and Heme + stools Transfuse 1 unit additional PRBC today GI following. Patient refuses colonoscopy Coagulopathy Holding Eliquis, last dose 07/16 9 am. s/p Vitamin K 10 mg subcut, 2 units FFP. F /u coags and hgb, -Kcentra held off as pt clinically does not appear to have active hemorrhage. FEN/RENAL: RUDY overlying CKD stage III Monitor intake and output. Monitor creatinine. Monitor electrolytes and replace as indicated IV NS 70 ml per hour ENDO: Euglycemic PROPH: SCDs for DVT prophylaxis. No pharmacologic DVT prophylaxis at this time due to bleeding. Protonix as per above. ACCESS: Multiple peripheral IVs providing adequate access at this time. Discharge Planning: hopefully to SNF when cleared by infectious disease, gastroenterology. = Continues on p.o. vancomycin for treatment of suspected C. difficile
[2018-07-22] MEDS: Metoprolol Tartrate 50 MG Tablet PO SCH ×2 (08:31→20:18)
[2018-07-22] MEDS: Pantoprazole Inj 40 MG Vial IV.PUSH SCH ×2 (08:31→20:17)
[2018-07-22 08:48] LABS: Anion Gap 11 meq/L (5-15); Blood Urea Nitrogen 7 mg/dL (7-18); Calcium 6.9 mg/dL (8.5-10.1); Carbon Dioxide 19.8 meq/L (21.0-32.0); Chloride 116 meq/L (98-107); Glomerular Filtration Rate Greater Than 89 mL/min (>89); Glucose,Random 72 mg/dL (74-106); Magnesium 1.6 mg/dL (1.5-2.5); Phosphorus 2.1 mg/dL (2.5-4.9); Sodium 147 meq/L (136-145)
[2018-07-22 09:17] LABS: Potassium 2.9 meq/L (3.5-5.1)
[2018-07-22] MEDS: Potassium Chlor 20 mEq Premix 20 MEQ/100 ML PIGGYBACK IV.SIG PRN ×2 (09:48→12:01)
[2018-07-22] MEDS: Magnesium Oxide 400 MG Tablet PO PRN (09:48)
--- NOTE | 2018-07-22 10:31 | P.PNGI ---
Subjective Interval history: Pt resting in bed eating breakfast. One loose stool last night, no BM yet today. Denies nausea, vomiting, abdominal pain. <Clarita Lechuga - Last Filed: 07/22/18 10:24> Physical Exam Vital signs: Vital Signs 07/21/18 11:00 07/21/18 12:00 07/21/18 13:00 Temperature 98.2 F 97.8 F 98.1 F Pulse Rate 78 86 82 Respiratory Rate Blood Pressure 144/79 H 143/84 H 130/70 Pulse Oximetry 95 96 92 L 07/21/18 14:00 07/21/18 15:00 07/21/18 16:00 Temperature 97.9 F 97.7 F 97.9 F Pulse Rate 102 H 121 H 105 H Respiratory Rate Blood Pressure 137/78 133/68 132/75 Pulse Oximetry 97 98 97 07/21/18 17:00 07/21/18 18:00 07/21/18 19:00 Temperature 97.8 F 98.0 F Pulse Rate 90 97 H 98 H Respiratory Rate 24 Blood Pressure 121/66 123/73 127/62 Pulse Oximetry 98 98 98 07/21/18 20:00 07/21/18 21:00 07/21/18 22:00 Temperature 97.9 F Pulse Rate 91 H 88 82 Respiratory Rate 22 21 19 Blood Pressure 142/72 H 125/67 117/71 Pulse Oximetry 99 99 100 07/21/18 23:00 07/22/18 00:00 07/22/18 01:00 Temperature 98.2 F Pulse Rate 73 82 77 Respiratory Rate 19 20 26 H Blood Pressure 122/72 140/74 145/80 H Pulse Oximetry 98 99 98 07/22/18 02:00 07/22/18 03:00 07/22/18 04:00 Temperature 98.0 F Pulse Rate 76 64 72 Respiratory Rate 16 14 16 Blood Pressure 130/68 130/68 129/75 Pulse Oximetry 95 96 97 07/22/18 05:00 07/22/18 06:00 07/22/18 07:00 Temperature 97.5 F L Pulse Rate 78 68 73 Respiratory Rate 18 15 16 Blood Pressure 136/78 137/75 138/75 Pulse Oximetry 100 99 100 Intake & Output 07/21/18 07/22/18 07/22/18 18:59 06:59 18:59 Intake Total 540 / 540 1855 / 1855 100 / 100 Balance 540 / 540 1855 / 1855 100 / 100 Weight 119 kg Intake: IV 100 / 100 1615 / 1615 100 / 100 D5W + KCL 20 mEq Inj 1,000 ML @ 1000 / 1000 42 mls/hr IV.CONT .[id number] [facility] Rx#:[id number] Magnesium Sulfate 1 gm/D5W 100 100 / 100 ml Premix 100 ML @ 100 mls/hr IV.SIG ONCE ONE Rx#:[id number] Zosyn 3.375 GM Premix 50 ML @ 100 / 100 100 / 100 100 mls/hr IV.SIG Q6H [facility] Rx#: [id number] Vancomycin Inj 1,500 MG In NS 515 / 515 Inj 500 ML @ 250 mls/hr IV.SIG Q24H [facility] Rx#:[id number] Oral 240 / 240 240 / 240 Anesthesia Amount 200 / 200 Other: # Voids 1 3 Date of Last Bowel Movement 07/21/18 07/22/18 # Bowel Movements 1 3 - Constitutional no acute distress - Routine HEENT Exam Head: Present: normocephalic, atraumatic - Routine Respiratory Exam Absent: accessory muscle use - Routine Abdominal Exam Present: soft, normoactive bowel sounds. Absent: tenderness, distended - Routine Skin Exam Present: dry, warm - Routine Neurological Exam Present: alert, oriented X3 <Clarita Lechuga - Last Filed: 07/22/18 10:24> Vital signs: Vital Signs 07/21/18 14:00 07/21/18 15:00 07/21/18 16:00 Temperature 97.9 F 97.7 F 97.9 F Pulse Rate 102 H 121 H 105 H Respiratory Rate Blood Pressure 137/78 133/68 132/75 Pulse Oximetry 97 98 97 07/21/18 17:00 07/21/18 18:00 07/21/18 19:00 Temperature 97.8 F 98.0 F Pulse Rate 90 97 H 98 H Respiratory Rate 24 Blood Pressure 121/66 123/73 127/62 Pulse Oximetry 98 98 98 07/21/18 20:00 07/21/18 21:00 07/21/18 22:00 Temperature 97.9 F Pulse Rate 91 H 88 82 Respiratory Rate 22 21 19 Blood Pressure 142/72 H 125/67 117/71 Pulse Oximetry 99 99 100 07/21/18 23:00 07/22/18 00:00 07/22/18 01:00 Temperature 98.2 F Pulse Rate 73 82 77 Respiratory Rate 19 20 26 H Blood Pressure 122/72 140/74 145/80 H Pulse Oximetry 98 99 98 07/22/18 02:00 07/22/18 03:00 07/22/18 04:00 Temperature 98.0 F Pulse Rate 76 64 72 Respiratory Rate 16 14 16 Blood Pressure 130/68 130/68 129/75 Pulse Oximetry 95 96 97 07/22/18 05:00 07/22/18 06:00 07/22/18 07:00 Temperature 97.5 F L Pulse Rate 78 68 73 Respiratory Rate 18 15 16 Blood Pressure 136/78 137/75 138/75 Pulse Oximetry 100 99 100 07/22/18 08:00 07/22/18 09:00 07/22/18 10:00 Temperature 97.5 F L 97.8 F Pulse Rate 73 91 H 78 Respiratory Rate 16 25 H 26 H Blood Pressure 138/75 141/83 H 137/83 Pulse Oximetry 100 97 98 07/22/18 11:00 07/22/18 12:00 Temperature 97.9 F 97.8 F Pulse Rate 82 76 Respiratory Rate 27 H 22 Blood Pressure 141/73 H 128/71 Pulse Oximetry 97 100 Intake & Output 07/21/18 07/22/18 07/22/18 18:59 06:59 18:59 Intake Total 540 / 540 1855 / 1855 250 / 250 Balance 540 / 540 1855 / 1855 250 / 250 Weight 119 kg Intake: IV 100 / 100 1615 / 1615 250 / 250 D5W + KCL 20 mEq Inj 1,000 ML @ 1000 / 1000 42 mls/hr IV.CONT .[id number] [facility] Rx#:[id number] Magnesium Sulfate 1 gm/D5W 100 100 / 100 ml Premix 100 ML @ 100 mls/hr IV.SIG ONCE ONE Rx#:[id number] Zosyn 3.375 GM Premix 50 ML @ 100 / 100 100 / 100 50 / 50 100 mls/hr IV.SIG Q6H [facility] Rx#: [id number] KCl 20 mEq Premix Inj 20 meq In 100 / 100 100 ml @ 50 mls/hr IV.SIG Q2H [facility] Rx#:[id number] Vancomycin Inj 1,500 MG In NS 515 / 515 Inj 500 ML @ 250 mls/hr IV.SIG Q24H [facility] Rx#:[id number] Oral 240 / 240 240 / 240 Anesthesia Amount 200 / 200 Other: # Voids 1 3 Date of Last Bowel Movement 07/21/18 07/22/18 07/22/18 # Bowel Movements 1 3 <Fausto Montanez - Last Filed: 07/22/18 14:01> Results - Labs CBC & Chem 7: 07/22/18 05:20 07/22/18 05:20 Laboratory Results - last 24 hr 07/22/18 07/22/18 05:20 05:20 WBC 6.0 RBC 3.61 L Hgb 10.7 L Hct 32.1 L MCV 88.9 MCH 29.7 MCHC 33.4 RDW 16.1 Plt Count 335 MPV 7.1 Neut % (Auto) 52.1 Lymph % (Auto) 36.9 [place] % (Auto) 3.6 Eos % (Auto) 4.9 H Baso % (Auto) 2.5 H Neut # (Auto) 3.1 Lymph # (Auto) 2.2 [place] # (Auto) 0.2 Eos # (Auto) 0.3 Baso # (Auto) 0.2 WBC Differential . Differential Comment Auto diff final Sodium 147 H Potassium 2.9 L* Chloride 116 H Carbon Dioxide 19.8 L Anion Gap 11 BUN 7 Creatinine 0.64 Estimated GFR Greater than 89 Random Glucose 72 L Calcium 6.9 L* D Phosphorus 2.1 L Magnesium 1.6 Albumin 2.0 L Microbiology 07/17/18 11:03 Blood - Peripheral Aerobic Blood Culture - Preliminary No growth in 4 days 07/17/18 11:03 Blood - Peripheral Anaerobic Blood Culture - Preliminary No growth in 4 days 07/17/18 11:09 Blood - Peripheral Aerobic Blood Culture - Preliminary No growth in 4 days 07/17/18 11:09 Blood - Peripheral Anaerobic Blood Culture - Preliminary No growth in 4 days <Clarita Lechuga - Last Filed: 07/22/18 10:24> - Labs CBC & Chem 7: 07/22/18 05:20 07/22/18 05:20 Laboratory Results - last 24 hr 07/22/18 07/22/18 05:20 05:20 WBC 6.0 RBC 3.61 L Hgb 10.7 L Hct 32.1 L MCV 88.9 MCH 29.7 MCHC 33.4 RDW 16.1 Plt Count 335 MPV 7.1 Neut % (Auto) 52.1 Lymph % (Auto) 36.9 [place] % (Auto) 3.6 Eos % (Auto) 4.9 H Baso % (Auto) 2.5 H Neut # (Auto) 3.1 Lymph # (Auto) 2.2 [place] # (Auto) 0.2 Eos # (Auto) 0.3 Baso # (Auto) 0.2 WBC Differential . Differential Comment Auto diff final Sodium 147 H Potassium 2.9 L* Chloride 116 H Carbon Dioxide 19.8 L Anion Gap 11 BUN 7 Creatinine 0.64 Estimated GFR Greater than 89 Random Glucose 72 L Calcium 6.9 L* D Phosphorus 2.1 L Magnesium 1.6 Albumin 2.0 L Microbiology 07/17/18 11:03 Blood - Peripheral Aerobic Blood Culture - Final No growth in 5 days 07/17/18 11:03 Blood - Peripheral Anaerobic Blood Culture - Final No growth in 5 days 07/17/18 11:09 Blood - Peripheral Aerobic Blood Culture - Final No growth in 5 days 07/17/18 11:09 Blood - Peripheral Anaerobic Blood Culture - Final No growth in 5 days <Fausto Montanez - Last Filed: 07/22/18 14:01> Assessment and Plan - Plan Assessment: Symptomatic anemia with Hemoccult positive stool in the setting of Eliquis use. Pt initially refused EGD and colonoscopy, however later was agreeable. Diarrhea- pt reports this has been chronic issue, recent reported history of diverticulitis. CT abd/pelvis WO IV contrast --> . Persistent pericolic inflammatory changes involving the distal transverse colon and descending colon consistent with acute diverticulitis or colitis. Extensive subcutaneous fluid/edema is noted involving the left lateral abdominal wall and is worse than on the previous examination. Cholelithiasis. Ventral abdominal wall hernia containing only fat. Colonoscopy (07/22) Moderate diverticulosis was noted in the sigmoid colon. Circumferential diffuse colitis was found in the transverse colon, descending colon, and sigmoid colon; The mucosa was congested, edematous, erythematous, friable, nodular and had granularity; multiple biopsies were performed using cold forceps Internal and external hemorrhoids. Plan: Oral Vanco IV Zosyn Enteric pathogens Repeat C. Diff ordered by primary If diarrhea persists will add cholestyramine Colon biopsy pending Further recommendations to follow Pt has been seen and examined by myself and Dr. Montanez and this note is written on his behalf <Clarita Lechuga - Last Filed: 07/22/18 10:24> - Plan Seen and examined with SENIOR ART DIRECTOR, feeling tired but no bleeding , no abdominal pain. Colonoscopy suspicious for ischemic colitis. CTA ordered. Discussed with patient. The exam, history, and the medical decision-making described in the above note were completed with the assistance of the mid-level provider. I reviewed and agree with the findings presented. I attest that I had a [id number] encounter with the patient on the same day, and personally performed and documented my assessment and findings in the medical record. <Fausto Montanez - Last Filed: 07/22/18 14:01>
[2018-07-22] MEDS: KCL 20 mEq/Dextrose 5% Inj 1,000 ML IV.CONT SCH ×2 (19:20→23:49)
[2018-07-22] MEDS ORDERED: Pharmacy Ordered Lab Info OTHER ONE (21:45)
[2018-07-22 23:27] LABS: Potassium 3.6 meq/L (3.5-5.1)
[2018-07-22 23:28] LABS: Vancomycin,Trough 21.8 mcg/mL (5.0-10.0)
[2018-07-22] MEDS: Vancomycin Inj 1,500 MG in Sodium Chlor 0.9% Inj 500 ML IV.SIG SCH (23:29)
[2018-07-23] MEDS: KCL 20 mEq/Dextrose 5% Inj 1,000 ML IV.CONT SCH (00:16)
[2018-07-23] MEDS: Piperacil/Tazo 3.375 GM Premix 50 ML IV.SIG SCH ×3 (03:10→17:10)
[2018-07-23 04:02] LABS: Baso # (Auto) 0.1 th/mm3 (0.0-0.2); Baso % (Auto) 0.9 % (0.0-2.0); Eos # (Auto) 0.3 th/mm3 (0.0-0.4); Eos % (Auto) 4.1 % (0.0-4.0); Hematocrit 33.7 % (35.0-46.0); Hemoglobin 10.9 gm/dL (11.6-15.3); Lymph # (Auto) 2.4 th/mm3 (1.0-4.8); Lymph % (Auto) 34.1 % (9.0-44.0); Mean Corpuscular HGB Conc 32.3 % (32.0-36.0); Mean Corpuscular Hemoglobin 29.6 pg (27.0-34.0); Mean Corpuscular Volume 91.5 fL (80.0-100.0); Mean Platelet Volume 7.6 fL (7.0-11.0); Mono # (Auto) 0.4 th/mm3 (0.0-0.9); Mono % (Auto) 6.4 % (0.0-8.0); Neut # (Auto) 3.8 th/mm3 (1.8-7.7); Neut % (Auto) 54.5 % (16.0-70.0); Platelet Count 318 th/mm3 (150-450); Red Blood Count 3.69 mil/mm3 (4.00-5.30); White Blood Count 6.9 th/mm3 (4.0-11.0)
[2018-07-23] MEDS: Pantoprazole Inj 40 MG Vial IV.PUSH SCH ×2 (08:21→20:20)
[2018-07-23] MEDS: Metoprolol Tartrate 50 MG Tablet PO SCH ×2 (08:21→20:20)
[2018-07-23 10:05] LABS: Albumin 1.9 g/dL (3.4-5.0); Anion Gap 8 meq/L (5-15); Aspartate Aminotransferase 24 U/L (15-37); Blood Urea Nitrogen 8 mg/dL (7-18); Calcium 7.5 mg/dL (8.5-10.1); Carbon Dioxide 19.9 meq/L (21.0-32.0); Chloride 114 meq/L (98-107); Glomerular Filtration Rate Greater Than 89 mL/min (>89); Glucose,Random 82 mg/dL (74-106); Magnesium 1.5 mg/dL (1.5-2.5); Potassium 3.6 meq/L (3.5-5.1); Sodium 142 meq/L (136-145)
[2018-07-23 10:06] LABS: Alanine Aminotransferase 18 U/L (10-53)
[2018-07-23 10:09] LABS: Alkaline Phosphatase 310 U/L (45-117); Phosphorus 2.3 mg/dL (2.5-4.9); Total Protein 5.6 g/dL (6.4-8.2)
--- NOTE | 2018-07-23 10:32 | P.PN ---
Subjective Interval history: Follow up for diverticulitis, resolved septic shock, atrial fibrillation. Patient is currently resting in bed, doing well. No chest pain, shortness of breath, fever or chills. She is a scheduled for CTA of abdomen pelvis per GI. She reports no abdominal pain. Physical Exam Vital signs: Vital Signs 07/22/18 11:00 07/22/18 12:00 07/22/18 13:00 Temperature 97.9 F 97.8 F Pulse Rate 77 76 75 Respiratory Rate 23 26 H 22 Blood Pressure 143/93 H 128/71 126/71 Pulse Oximetry 90 L 100 100 07/22/18 14:00 07/22/18 15:00 07/22/18 16:00 Temperature 97.9 F Pulse Rate 80 80 82 Respiratory Rate 21 20 20 Blood Pressure 125/67 119/76 122/67 Pulse Oximetry 99 94 L 99 07/22/18 17:00 07/22/18 18:00 07/22/18 19:00 Temperature 97.8 F 97.8 F Pulse Rate 83 100 H 106 H Respiratory Rate 26 H 31 H 19 Blood Pressure 116/76 172/76 H 143/97 H Pulse Oximetry 87 L 89 L 98 07/22/18 20:00 07/22/18 21:00 07/22/18 22:00 Temperature 97.6 F Pulse Rate 111 H 95 H 91 H Respiratory Rate 25 H 29 H 21 Blood Pressure 124/78 127/71 121/60 Pulse Oximetry 95 94 L 96 07/22/18 23:00 07/22/18 23:59 07/23/18 00:00 Temperature 98.4 F Pulse Rate 89 89 87 Respiratory Rate 22 22 22 Blood Pressure 123/71 125/70 Pulse Oximetry 98 100 100 07/23/18 01:00 07/23/18 02:00 07/23/18 03:00 Temperature Pulse Rate 88 92 H 91 H Respiratory Rate 22 28 H 27 H Blood Pressure 125/88 132/74 127/71 Pulse Oximetry 95 95 94 L 07/23/18 04:00 07/23/18 06:00 07/23/18 08:00 Temperature 98 F 98.7 F Pulse Rate 98 H 86 97 H Respiratory Rate 34 H 20 Blood Pressure 133/62 116/65 Pulse Oximetry 96 96 Intake & Output 07/22/18 07/23/18 07/23/18 18:59 06:59 18:59 Intake Total 1120 / 1120 1410 / 1410 Balance 1120 / 1120 1410 / 1410 Weight 113.5 kg Intake: IV 400 / 400 1260 / 1260 D5W + KCL 20 mEq Inj 1,000 ML @ 1000 / 1000 42 mls/hr IV.CONT .[id number] [facility] Rx#:[id number] Magnesium Sulfate 1 gm/D5W 100 100 / 100 ml Premix 100 ML @ 100 mls/hr IV.SIG ONCE ONE Rx#:[id number] Zosyn 3.375 GM Premix 50 ML @ 100 / 100 50 / 50 100 mls/hr IV.SIG Q6H [facility] Rx#: [id number] KCl 20 mEq Premix Inj 20 meq In 200 / 200 100 ml @ 50 mls/hr IV.SIG Q2H [facility] Rx#:[id number] Vancomycin Inj 1,500 MG In NS 210 / 210 Inj 500 ML @ 250 mls/hr IV.SIG Q24H [facility] Rx#:[id number] Oral 720 / 720 150 / 150 Other: # Voids 2 2 # Incontinent Voids 1 Date of Last Bowel Movement 07/22/18 07/23/18 07/23/18 # Bowel Movements 2 1 Narrative: GENERAL: Alert, NAD. SKIN: Warm and dry. HEAD: Normocephalic. EYES: No scleral icterus. No injection or drainage. NECK: Supple, trachea midline. No JVD. CARDIOVASCULAR: Regular rate and rhythm without murmurs, gallops, or rubs. RESPIRATORY: Breath sounds equal bilaterally. No accessory muscle use. GASTROINTESTINAL: Abdomen soft, non-tender, nondistended. MUSCULOSKELETAL: No cyanosis. Trace edema. BACK: Nontender without obvious deformity. No CVA tenderness. Results - Labs CBC & Chem 7: 07/23/18 03:14 07/23/18 09:15 Laboratory Results - last 24 hr 07/22/18 07/22/18 07/23/18 11:20 22:56 03:14 WBC 6.9 RBC 3.69 L Hgb 10.9 L Hct 33.7 L MCV 91.5 MCH 29.6 MCHC 32.3 RDW 17.0 Plt Count 318 MPV 7.6 Neut % (Auto) 54.5 Lymph % (Auto) 34.1 Garrett % (Auto) 6.4 Eos % (Auto) 4.1 H Baso % (Auto) 0.9 Neut # (Auto) 3.8 Lymph # (Auto) 2.4 Garrett # (Auto) 0.4 Eos # (Auto) 0.3 Baso # (Auto) 0.1 WBC Differential . Differential Comment Auto diff final Sodium Potassium 3.6 Chloride Carbon Dioxide Anion Gap BUN Creatinine Estimated GFR Random Glucose Calcium Phosphorus Magnesium Total Bilirubin Direct Bilirubin Indirect Bilirubin AST ALT Alkaline Phosphatase Total Protein Albumin Stl C.difficile DNA Amp Negative St C. diff Tox Epid 027 Negative Vancomycin Trough 21.8 H 07/23/18 09:15 WBC RBC Hgb Hct MCV MCH MCHC RDW Plt Count MPV Neut % (Auto) Lymph % (Auto) Garrett % (Auto) Eos % (Auto) Baso % (Auto) Neut # (Auto) Lymph # (Auto) Garrett # (Auto) Eos # (Auto) Baso # (Auto) WBC Differential Differential Comment Sodium 142 Potassium 3.6 Chloride 114 H Carbon Dioxide 19.9 L Anion Gap 8 BUN 8 Creatinine 0.64 Estimated GFR Greater than 89 Random Glucose 82 Calcium 7.5 L Phosphorus 2.3 L Magnesium 1.5 Total Bilirubin 1.0 Direct Bilirubin 0.3 H Indirect Bilirubin 0.7 AST 24 ALT 18 Alkaline Phosphatase 310 H Total Protein 5.6 L Albumin 1.9 L Stl C.difficile DNA Amp St C. diff Tox Epid 027 Vancomycin Trough Microbiology 07/22/18 11:20 Stool Enteric Pathogens (PCR) - Final No enteric pathogens detected by PCR (No Salmonella sp., Shigella sp., Campylobacter sp., Yersinia enterocolitica, Vibrio sp., Norovirus, or EHEC (Shiga Toxin 1 or Shiga Toxin 2) detected. 07/17/18 11:03 Blood - Peripheral Aerobic Blood Culture - Final No growth in 5 days 07/17/18 11:03 Blood - Peripheral Anaerobic Blood Culture - Final No growth in 5 days 07/17/18 11:09 Blood - Peripheral Aerobic Blood Culture - Final No growth in 5 days 07/17/18 11:09 Blood - Peripheral Anaerobic Blood Culture - Final No growth in 5 days - Imaging Chest X-Ray 07/16/18 22:25 CONCLUSION: Cardiomegaly. No acute pulmonary disease. Abdomen/Pelvis CT 07/17/18 00:00 CONCLUSION: 1. Persistent pericolic inflammatory changes involving the distal transverse colon and descending colon consistent with acute diverticulitis or colitis. 2. Extensive subcutaneous fluid/edema is noted involving the left lateral abdominal wall and is worse than on the previous examination. 3. Multiple calcified nonobstructing bilateral renal calculi. 4. Cholelithiasis. 5. Ventral abdominal wall hernia containing only fat. 6. Degenerative changes and scoliosis of the thoracolumbar spine. 7. 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 8. Posterior bibasilar atelectasis. 9. Stable left renal cysts. Abdomen Ultrasound 07/18/18 00:00 CONCLUSION: Soft tissue edema. Chest X-Ray 07/19/18 06:00 CONCLUSION: Bilateral infiltrates Assessment and Plan - Plan Ms. Urena is a pleasant 73 year old female with past medical history of hypertension, hyperlipidemia, atrial fibrillation with a recent hospitalization due to diverticulitis vs. colitis who was admitted to the hospital due to hypotension, suspected GI bleed. She was initially managed by the critical care team. She was started on shahab-Synephrine for hypotension. She was started on ceftriaxone as well as Flagyl. Acute blood loss anemia - Likely due to GI bleed, anticoagulation - Hgb 10.9, stable. GI following. CTA abd/pelvis pending today. Sepsis (HR 96, RR 25, WBC 12,1, 13.7, suspected infection intra-abdominal). Acute diverticulitis Diffuse colitis on Colonoscopy - ID following. Currently on IV Vancomycin, PO Vancomycin, Zosyn IV. - Continue Protonix 40mg IV Q12hrs. Hypokalemia Hyponatremia Hypomagnesemia -Na, K within normal range now. -Mg 1.5. Will give 2g of Mag sulfate IV today. Atrial fibrillation - Continue Metoprolol - No anti-coagulation for now. Full code. SCDs.
--- NOTE | 2018-07-23 10:41 | P.PNGI ---
Subjective Interval history: Pt resting in bed. No BM yet this morning, but feels like she needs to in a little bit. Denies nausea, vomiting, abdominal pain. Eating breakfast. <Clarita Lechuga - Last Filed: 07/23/18 10:38> Physical Exam Vital signs: Vital Signs 07/22/18 11:00 07/22/18 12:00 07/22/18 13:00 Temperature 97.9 F 97.8 F Pulse Rate 77 76 75 Respiratory Rate 23 26 H 22 Blood Pressure 143/93 H 128/71 126/71 Pulse Oximetry 90 L 100 100 07/22/18 14:00 07/22/18 15:00 07/22/18 16:00 Temperature 97.9 F Pulse Rate 80 80 82 Respiratory Rate 21 20 20 Blood Pressure 125/67 119/76 122/67 Pulse Oximetry 99 94 L 99 07/22/18 17:00 07/22/18 18:00 07/22/18 19:00 Temperature 97.8 F 97.8 F Pulse Rate 83 100 H 106 H Respiratory Rate 26 H 31 H 19 Blood Pressure 116/76 172/76 H 143/97 H Pulse Oximetry 87 L 89 L 98 07/22/18 20:00 07/22/18 21:00 07/22/18 22:00 Temperature 97.6 F Pulse Rate 111 H 95 H 91 H Respiratory Rate 25 H 29 H 21 Blood Pressure 124/78 127/71 121/60 Pulse Oximetry 95 94 L 96 07/22/18 23:00 07/22/18 23:59 07/23/18 00:00 Temperature 98.4 F Pulse Rate 89 89 87 Respiratory Rate 22 22 22 Blood Pressure 123/71 125/70 Pulse Oximetry 98 100 100 07/23/18 01:00 07/23/18 02:00 07/23/18 03:00 Temperature Pulse Rate 88 92 H 91 H Respiratory Rate 22 28 H 27 H Blood Pressure 125/88 132/74 127/71 Pulse Oximetry 95 95 94 L 07/23/18 04:00 07/23/18 06:00 07/23/18 08:00 Temperature 98 F 98.7 F Pulse Rate 98 H 86 97 H Respiratory Rate 34 H 20 Blood Pressure 133/62 116/65 Pulse Oximetry 96 96 Intake & Output 10/10/18 10/11/18 10/11/18 18:59 06:59 18:59 Intake Total 1120 / 1120 1410 / 1410 Balance 1120 / 1120 1410 / 1410 Weight 113.5 kg Intake: IV 400 / 400 1260 / 1260 D5W + KCL 20 mEq Inj 1,000 ML @ 1000 / 1000 42 mls/hr IV.CONT .[id number] [facility] Rx#:[id number] Magnesium Sulfate 1 gm/D5W 100 100 / 100 ml Premix 100 ML @ 100 mls/hr IV.SIG ONCE ONE Rx#:[id number] Zosyn 3.375 GM Premix 50 ML @ 100 / 100 50 / 50 100 mls/hr IV.SIG Q6H [facility] Rx#: [id number] KCl 20 mEq Premix Inj 20 meq In 200 / 200 100 ml @ 50 mls/hr IV.SIG Q2H [facility] Rx#:[id number] Vancomycin Inj 1,500 MG In NS 210 / 210 Inj 500 ML @ 250 mls/hr IV.SIG Q24H [facility] Rx#:[id number] Oral 720 / 720 150 / 150 Other: # Voids 2 2 # Incontinent Voids 1 Date of Last Bowel Movement 07/22/18 07/23/18 07/23/18 # Bowel Movements 2 1 - Constitutional no acute distress - Routine HEENT Exam Head: Present: normocephalic, atraumatic - Routine Respiratory Exam Absent: accessory muscle use - Routine Abdominal Exam Present: soft, normoactive bowel sounds. Absent: tenderness, distended - Routine Skin Exam Present: dry, warm - Routine Neurological Exam Present: alert, oriented X3 <Clarita Lechuga - Last Filed: 07/23/18 10:38> Vital signs: Vital Signs 07/22/18 17:00 07/22/18 18:00 07/22/18 19:00 Temperature 97.8 F 97.8 F Pulse Rate 83 100 H 106 H Respiratory Rate 26 H 31 H 19 Blood Pressure 116/76 172/76 H 143/97 H Pulse Oximetry 87 L 89 L 98 07/22/18 20:00 07/22/18 21:00 07/22/18 22:00 Temperature 97.6 F Pulse Rate 111 H 95 H 91 H Respiratory Rate 25 H 29 H 21 Blood Pressure 124/78 127/71 121/60 Pulse Oximetry 95 94 L 96 07/22/18 23:00 07/22/18 23:59 07/23/18 00:00 Temperature 98.4 F Pulse Rate 89 89 87 Respiratory Rate 22 22 22 Blood Pressure 123/71 125/70 Pulse Oximetry 98 100 100 07/23/18 01:00 07/23/18 02:00 07/23/18 03:00 Temperature Pulse Rate 88 92 H 91 H Respiratory Rate 22 28 H 27 H Blood Pressure 125/88 132/74 127/71 Pulse Oximetry 95 95 94 L 07/23/18 04:00 07/23/18 06:00 07/23/18 08:00 Temperature 98 F 98.7 F Pulse Rate 98 H 86 97 H Respiratory Rate 34 H 20 Blood Pressure 133/62 116/65 Pulse Oximetry 96 96 07/23/18 10:00 07/23/18 12:00 07/23/18 14:00 Temperature 98.8 F Pulse Rate 90 111 H 97 H Respiratory Rate 18 Blood Pressure 131/60 Pulse Oximetry 96 07/23/18 16:00 Temperature 98.4 F Pulse Rate 99 H Respiratory Rate 16 Blood Pressure 119/66 Pulse Oximetry 93 L Intake & Output 07/22/18 07/23/18 07/23/18 18:59 06:59 18:59 Intake Total 1120 / 1120 1460 / 1460 100 / 100 Balance 1120 / 1120 1460 / 1460 100 / 100 Weight 113.5 kg Intake: IV 400 / 400 1310 / 1310 100 / 100 D5W + KCL 20 mEq Inj 1,000 ML @ 1000 / 1000 42 mls/hr IV.CONT .[id number] [facility] Rx#:[id number] Magnesium Sulfate 1 gm/D5W 100 100 / 100 100 / 100 ml Premix 100 ML @ 100 mls/hr IV.SIG Q1H [facility] Rx#:[id number] Zosyn 3.375 GM Premix 50 ML @ 100 / 100 100 / 100 100 mls/hr IV.SIG Q6H [facility] Rx#: [id number] KCl 20 mEq Premix Inj 20 meq In 200 / 200 100 ml @ 50 mls/hr IV.SIG Q2H [facility] Rx#:[id number] Vancomycin Inj 1,500 MG In NS 210 / 210 Inj 500 ML @ 250 mls/hr IV.SIG Q24H [facility] Rx#:[id number] Oral 720 / 720 150 / 150 Other: # Voids 2 2 # Incontinent Voids 1 Date of Last Bowel Movement 07/22/18 07/23/18 07/23/18 # Bowel Movements 2 1 <Fausto Montanez - Last Filed: 07/23/18 16:57> Results - Labs CBC & Chem 7: 07/23/18 03:14 07/23/18 09:15 Laboratory Results - last 24 hr 07/22/18 07/22/18 07/23/18 11:20 22:56 03:14 WBC 6.9 RBC 3.69 L Hgb 10.9 L Hct 33.7 L MCV 91.5 MCH 29.6 MCHC 32.3 RDW 17.0 Plt Count 318 MPV 7.6 Neut % (Auto) 54.5 Lymph % (Auto) 34.1 Ballard % (Auto) 6.4 Eos % (Auto) 4.1 H Baso % (Auto) 0.9 Neut # (Auto) 3.8 Lymph # (Auto) 2.4 Ballard # (Auto) 0.4 Eos # (Auto) 0.3 Baso # (Auto) 0.1 WBC Differential . Differential Comment Auto diff final Sodium Potassium 3.6 Chloride Carbon Dioxide Anion Gap BUN Creatinine Estimated GFR Random Glucose Calcium Phosphorus Magnesium Total Bilirubin Direct Bilirubin Indirect Bilirubin AST ALT Alkaline Phosphatase Total Protein Albumin Stl C.difficile DNA Amp Negative St C. diff Tox Epid 027 Negative Vancomycin Trough 21.8 H 07/23/18 09:15 WBC RBC Hgb Hct MCV MCH MCHC RDW Plt Count MPV Neut % (Auto) Lymph % (Auto) Ballard % (Auto) Eos % (Auto) Baso % (Auto) Neut # (Auto) Lymph # (Auto) Ballard # (Auto) Eos # (Auto) Baso # (Auto) WBC Differential Differential Comment Sodium 142 Potassium 3.6 Chloride 114 H Carbon Dioxide 19.9 L Anion Gap 8 BUN 8 Creatinine 0.64 Estimated GFR Greater than 89 Random Glucose 82 Calcium 7.5 L Phosphorus 2.3 L Magnesium 1.5 Total Bilirubin 1.0 Direct Bilirubin 0.3 H Indirect Bilirubin 0.7 AST 24 ALT 18 Alkaline Phosphatase 310 H Total Protein 5.6 L Albumin 1.9 L Stl C.difficile DNA Amp St C. diff Tox Epid 027 Vancomycin Trough Microbiology 07/22/18 11:20 Stool Enteric Pathogens (PCR) - Final No enteric pathogens detected by PCR (No Salmonella sp., Shigella sp., Campylobacter sp., Yersinia enterocolitica, Vibrio sp., Norovirus, or EHEC (Shiga Toxin 1 or Shiga Toxin 2) detected. 07/17/18 11:03 Blood - Peripheral Aerobic Blood Culture - Final No growth in 5 days 07/17/18 11:03 Blood - Peripheral Anaerobic Blood Culture - Final No growth in 5 days 07/17/18 11:09 Blood - Peripheral Aerobic Blood Culture - Final No growth in 5 days 07/17/18 11:09 Blood - Peripheral Anaerobic Blood Culture - Final No growth in 5 days <Clarita Lechuga - Last Filed: 07/23/18 10:38> - Labs CBC & Chem 7: 07/23/18 03:14 07/23/18 09:15 Laboratory Results - last 24 hr 07/22/18 07/23/18 07/23/18 22:56 03:14 09:15 WBC 6.9 RBC 3.69 L Hgb 10.9 L Hct 33.7 L MCV 91.5 MCH 29.6 MCHC 32.3 RDW 17.0 Plt Count 318 MPV 7.6 Neut % (Auto) 54.5 Lymph % (Auto) 34.1 Ballard % (Auto) 6.4 Eos % (Auto) 4.1 H Baso % (Auto) 0.9 Neut # (Auto) 3.8 Lymph # (Auto) 2.4 Ballard # (Auto) 0.4 Eos # (Auto) 0.3 Baso # (Auto) 0.1 WBC Differential . Differential Comment Auto diff final Sodium 142 Potassium 3.6 3.6 Chloride 114 H Carbon Dioxide 19.9 L Anion Gap 8 BUN 8 Creatinine 0.64 Estimated GFR Greater than 89 Random Glucose 82 Calcium 7.5 L Phosphorus 2.3 L Magnesium 1.5 Total Bilirubin 1.0 Direct Bilirubin 0.3 H Indirect Bilirubin 0.7 AST 24 ALT 18 Alkaline Phosphatase 310 H Total Protein 5.6 L Albumin 1.9 L Vancomycin Trough 21.8 H Microbiology 07/22/18 11:20 Stool Enteric Pathogens (PCR) - Final No enteric pathogens detected by PCR (No Salmonella sp., Shigella sp., Campylobacter sp., Yersinia enterocolitica, Vibrio sp., Norovirus, or EHEC (Shiga Toxin 1 or Shiga Toxin 2) detected. <Fausto Montanez - Last Filed: 07/23/18 16:57> Assessment and Plan - Plan Assessment: Symptomatic anemia with Hemoccult positive stool in the setting of Eliquis use. Pt initially refused EGD and colonoscopy, however later was agreeable. Diarrhea- pt reports this has been chronic issue, recent reported history of diverticulitis. CT abd/pelvis WO IV contrast --> . Persistent pericolic inflammatory changes involving the distal transverse colon and descending colon consistent with acute diverticulitis or colitis. Extensive subcutaneous fluid/edema is noted involving the left lateral abdominal wall and is worse than on the previous examination. Cholelithiasis. Ventral abdominal wall hernia containing only fat. Colonoscopy (07/22) Moderate diverticulosis was noted in the sigmoid colon. Circumferential diffuse colitis was found in the transverse colon, descending colon, and sigmoid colon; The mucosa was congested, edematous, erythematous, friable, nodular and had granularity; multiple biopsies were performed using cold forceps Internal and external hemorrhoids. (07/23) No BM yet today. Denies nausea, vomiting, abdominal pain. Concern for ischemic colitis on colonoscopy, CTA abdomen/pelvis ordered. Repeat C. Diff negative. Enteric pathogens negative. Plan: IV Zosyn Colon biopsy pending CTA abdomen/pelvis Further recommendations to follow Pt has been seen and examined by myself and Dr. Montanez and this note is written on his behalf <Clarita Lechuga - Last Filed: 07/23/18 10:38> - Plan Seen and examined with ROTARY DUMP OPERATOR, no bleeding. Await CTA. Antibiotics. <Fausto Montanez - Last Filed: 07/23/18 16:57>
[2018-07-23] MEDS: Mag Sulf 1 gm/100 ml Premix 100 ML IV.SIG SCH ×2 (13:11→14:52)
--- NOTE | 2018-07-23 17:31 | P.PNADD ---
Addendum to Inpatient Note Reason for Addendum: Additional Documentation (path not cw c.diff) Additional information: dc vancomycin po dc zosyn
[2018-07-24] MEDS: KCL 20 mEq/Dextrose 5% Inj 1,000 ML IV.CONT SCH ×2 (02:56→22:12)
[2018-07-24] MEDS: Metoprolol Tartrate 50 MG Tablet PO SCH ×2 (08:20→22:12)
[2018-07-24] MEDS: Pantoprazole Inj 40 MG Vial IV.PUSH SCH ×2 (08:20→22:12)
[2018-07-24] MEDS ORDERED: Vancomycin Inj 1,250 MG in Sodium Chlor 0.9% Inj 250 ML IV.SIG SCH (11:00)
--- NOTE | 2018-07-24 11:24 | P.PNGI ---
Subjective Interval history: Per RN CTA was unable to be done yet, planned for this morning. Patient denies any nausea, vomiting, abdominal pain. She did have one loose bowel movement this morning. <JaniebassamClarita - Last Filed: 07/24/18 11:22> Physical Exam Vital signs: Vital Signs 07/23/18 12:00 07/23/18 14:00 07/23/18 16:00 Temperature 98.8 F 98.4 F Pulse Rate 111 H 97 H 99 H Respiratory Rate 18 16 Blood Pressure 131/60 119/66 Pulse Oximetry 96 93 L 07/23/18 18:00 07/23/18 19:00 07/23/18 20:00 Temperature 98.1 F Pulse Rate 104 H 135 H 116 H Respiratory Rate 30 H 33 H Blood Pressure 118/61 120/65 Pulse Oximetry 97 96 07/23/18 21:00 07/23/18 22:00 07/23/18 23:00 Temperature Pulse Rate 107 H 107 H 91 H Respiratory Rate 22 24 20 Blood Pressure 109/59 L 112/61 99/60 L Pulse Oximetry 96 96 98 07/24/18 00:00 07/24/18 01:00 07/24/18 02:00 Temperature 97.6 F Pulse Rate 95 H 94 H 98 H Respiratory Rate 26 H 19 22 Blood Pressure 133/82 121/62 119/56 L Pulse Oximetry 97 97 96 07/24/18 03:00 07/24/18 04:00 07/24/18 05:00 Temperature 97.2 F L Pulse Rate 90 81 93 H Respiratory Rate 31 H 16 22 Blood Pressure 119/58 L 118/62 121/62 Pulse Oximetry 98 98 98 07/24/18 06:00 07/24/18 08:00 07/24/18 10:00 Temperature 97.4 F L Pulse Rate 95 H 93 H 94 H Respiratory Rate 20 Blood Pressure 124/67 Pulse Oximetry 98 Intake & Output 07/23/18 07/24/18 07/24/18 18:59 06:59 18:59 Intake Total 950 / 950 1300 / 1300 Balance 950 / 950 1300 / 1300 Weight 114.5 kg Intake: IV 150 / 150 1000 / 1000 D5W + KCL 20 mEq Inj 1,000 ML @ 1000 / 1000 42 mls/hr IV.CONT .[id number] [facility] Rx#:[id number] Magnesium Sulfate 1 gm/D5W 100 100 / 100 ml Premix 100 ML @ 100 mls/hr IV.SIG Q1H [facility] Rx#:[id number] Zosyn 3.375 GM Premix 50 ML @ 50 / 50 100 mls/hr IV.SIG Q6H [facility] Rx#: [id number] Oral 800 / 800 300 / 300 Other: # Voids 3 2 # Incontinent Voids 1 2 Date of Last Bowel Movement 07/23/18 07/24/18 07/24/18 # Bowel Movements 2 1 - Constitutional no acute distress - Routine HEENT Exam Head: Present: normocephalic, atraumatic - Routine Respiratory Exam Absent: accessory muscle use - Routine Abdominal Exam Present: soft, normoactive bowel sounds. Absent: tenderness, distended - Routine Skin Exam Present: dry, warm - Routine Neurological Exam Present: alert, oriented X3 <Clarita Lechuga - Last Filed: 07/24/18 11:22> Vital signs: Vital Signs 07/23/18 14:00 07/23/18 16:00 07/23/18 18:00 Temperature 98.4 F Pulse Rate 97 H 99 H 104 H Respiratory Rate 16 Blood Pressure 119/66 Pulse Oximetry 93 L 07/23/18 19:00 07/23/18 20:00 07/23/18 21:00 Temperature 98.1 F Pulse Rate 135 H 116 H 107 H Respiratory Rate 30 H 33 H 22 Blood Pressure 118/61 120/65 109/59 L Pulse Oximetry 97 96 96 07/23/18 22:00 07/23/18 23:00 07/24/18 00:00 Temperature 97.6 F Pulse Rate 107 H 91 H 95 H Respiratory Rate 24 20 26 H Blood Pressure 112/61 99/60 L 133/82 Pulse Oximetry 96 98 97 07/24/18 01:00 07/24/18 02:00 07/24/18 03:00 Temperature Pulse Rate 94 H 98 H 90 Respiratory Rate 19 22 31 H Blood Pressure 121/62 119/56 L 119/58 L Pulse Oximetry 97 96 98 07/24/18 04:00 07/24/18 05:00 07/24/18 06:00 Temperature 97.2 F L Pulse Rate 81 93 H 95 H Respiratory Rate 16 22 Blood Pressure 118/62 121/62 Pulse Oximetry 98 98 07/24/18 08:00 07/24/18 10:00 07/24/18 12:00 Temperature 97.4 F L 98.3 F Pulse Rate 93 H 94 H 81 Respiratory Rate 20 20 Blood Pressure 124/67 127/72 Pulse Oximetry 98 98 Intake & Output 07/23/18 07/24/18 07/24/18 18:59 06:59 18:59 Intake Total 950 / 950 1300 / 1300 Balance 950 / 950 1300 / 1300 Weight 114.5 kg Intake: IV 150 / 150 1000 / 1000 D5W + KCL 20 mEq Inj 1,000 ML @ 1000 / 1000 42 mls/hr IV.CONT .[id number] [facility] Rx#:[id number] Magnesium Sulfate 1 gm/D5W 100 100 / 100 ml Premix 100 ML @ 100 mls/hr IV.SIG Q1H [facility] Rx#:[id number] Zosyn 3.375 GM Premix 50 ML @ 50 / 50 100 mls/hr IV.SIG Q6H [facility] Rx#: [id number] Oral 800 / 800 300 / 300 Other: # Voids 3 2 # Incontinent Voids 1 2 Date of Last Bowel Movement 07/23/18 07/24/18 07/24/18 # Bowel Movements 2 1 <Fausto Montanez - Last Filed: 07/24/18 13:21> Results - Labs CBC & Chem 7: 07/23/18 03:14 07/23/18 09:15 <Clarita Lechuga - Last Filed: 07/24/18 11:22> - Labs CBC & Chem 7: 07/23/18 03:14 07/23/18 09:15 <Fausto Montanez - Last Filed: 07/24/18 13:21> Assessment and Plan - Plan Assessment: Symptomatic anemia with Hemoccult positive stool in the setting of Eliquis use. Pt initially refused EGD and colonoscopy, however later was agreeable. Diarrhea- pt reports this has been chronic issue, recent reported history of diverticulitis. CT abd/pelvis WO IV contrast --> . Persistent pericolic inflammatory changes involving the distal transverse colon and descending colon consistent with acute diverticulitis or colitis. Extensive subcutaneous fluid/edema is noted involving the left lateral abdominal wall and is worse than on the previous examination. Cholelithiasis. Ventral abdominal wall hernia containing only fat. Colonoscopy (07/22) Moderate diverticulosis was noted in the sigmoid colon. Circumferential diffuse colitis was found in the transverse colon, descending colon, and sigmoid colon; The mucosa was congested, edematous, erythematous, friable, nodular and had granularity; multiple biopsies were performed using cold forceps Internal and external hemorrhoids. Pathology (transverse colon) mildly active chronic colitis with nonspecific features (descending colon) mildly active chronic colitis with nonspecific features (sigmoid colon) acutely inflamed granulation tissue (07/23) No BM yet today. Denies nausea, vomiting, abdominal pain. Concern for ischemic colitis on colonoscopy, CTA abdomen/pelvis ordered. Repeat C. Diff negative. Enteric pathogens negative. (07/24) CTA still pending. No significant changes overnight. Pathology from colonoscopy noted. Plan: IV Zosyn CTA abdomen/pelvis Further recommendations pending CTA Pt has been seen and examined by myself and Dr. Montanez and this note is written on his behalf <Clarita Lechuga - Last Filed: 07/24/18 11:22> - Plan Seen and examined with ROLL REPAIRER, CTA postponed earlier today due to traumas. Now scheduled for later today. No bleeding reported. <Fausto Montanez - Last Filed: 07/24/18 13:21>
--- NOTE | 2018-07-24 12:34 | P.PN ---
Subjective Interval history: Follow up for diverticulitis, resolved septic shock, atrial fibrillation. HEVERN is currently doing well. Denies any chest pain, shortness of breath, fever or chills. No abdominal pain. However, she continues to have diarrhea. Tolerating diet well. She went for CTA abdomen today. However due to trauma patients she was not able to undergo CTA. CTA will be done later today. Physical Exam Vital signs: Vital Signs 07/23/18 14:00 07/23/18 16:00 07/23/18 18:00 Temperature 98.4 F Pulse Rate 97 H 99 H 104 H Respiratory Rate 16 Blood Pressure 119/66 Pulse Oximetry 93 L 07/23/18 19:00 07/23/18 20:00 07/23/18 21:00 Temperature 98.1 F Pulse Rate 135 H 116 H 107 H Respiratory Rate 30 H 33 H 22 Blood Pressure 118/61 120/65 109/59 L Pulse Oximetry 97 96 96 07/23/18 22:00 07/23/18 23:00 07/24/18 00:00 Temperature 97.6 F Pulse Rate 107 H 91 H 95 H Respiratory Rate 24 20 26 H Blood Pressure 112/61 99/60 L 133/82 Pulse Oximetry 96 98 97 07/24/18 01:00 07/24/18 02:00 07/24/18 03:00 Temperature Pulse Rate 94 H 98 H 90 Respiratory Rate 19 22 31 H Blood Pressure 121/62 119/56 L 119/58 L Pulse Oximetry 97 96 98 07/24/18 04:00 07/24/18 05:00 07/24/18 06:00 Temperature 97.2 F L Pulse Rate 81 93 H 95 H Respiratory Rate 16 22 Blood Pressure 118/62 121/62 Pulse Oximetry 98 98 07/24/18 08:00 07/24/18 10:00 07/24/18 12:00 Temperature 97.4 F L 98.3 F Pulse Rate 93 H 94 H 81 Respiratory Rate 20 20 Blood Pressure 124/67 127/72 Pulse Oximetry 98 98 Intake & Output 07/23/18 07/24/18 07/24/18 18:59 06:59 18:59 Intake Total 950 / 950 1300 / 1300 Balance 950 / 950 1300 / 1300 Weight 114.5 kg Intake: IV 150 / 150 1000 / 1000 D5W + KCL 20 mEq Inj 1,000 ML @ 1000 / 1000 42 mls/hr IV.CONT .[id number] [facility], [facility]1983 Rx#:[id number] Magnesium Sulfate 1 gm/D5W 100 100 / 100 ml Premix 100 ML @ 100 mls/hr IV.SIG Q1H [facility] Rx#:[id number] Zosyn 3.375 GM Premix 50 ML @ 50 / 50 100 mls/hr IV.SIG Q6H [facility] Rx#: [id number] Oral 800 / 800 300 / 300 Other: # Voids 3 2 # Incontinent Voids 1 2 Date of Last Bowel Movement 07/23/18 07/24/18 07/24/18 # Bowel Movements 2 1 Narrative: GENERAL: Alert, NAD. Morbid obesity. SKIN: Warm and dry. HEAD: Normocephalic. EYES: No scleral icterus. No injection or drainage. NECK: Supple, trachea midline. No JVD. CARDIOVASCULAR: Regular rate and rhythm without murmurs, gallops, or rubs. RESPIRATORY: Breath sounds equal bilaterally. No accessory muscle use. GASTROINTESTINAL: Abdomen soft, non-tender, nondistended. MUSCULOSKELETAL: No cyanosis. Trace edema. BACK: Nontender without obvious deformity. No CVA tenderness. Results - Labs CBC & Chem 7: 07/23/18 03:14 07/23/18 09:15 Assessment and Plan - Plan Ms. Urena is a pleasant 73 year old female with past medical history of hypertension, hyperlipidemia, atrial fibrillation with a recent hospitalization due to diverticulitis vs. colitis who was admitted to the hospital due to hypotension, suspected GI bleed. She was initially managed by the critical care team. She was started on shahab-Synephrine for hypotension. She was started on ceftriaxone as well as Flagyl. Acute blood loss anemia - Likely due to GI bleed, anticoagulation - Hgb 10.9, stable. GI following. CTA abd/pelvis pending today. Sepsis (HR 96, RR 25, WBC 12,1, 13.7, suspected infection intra-abdominal). Acute diverticulitis Diffuse colitis on Colonoscopy - ID following. Currently on IV Vancomycin. ID discontinued PO Vancomycin, Zosyn IV. - Continue Protonix 40mg IV Q12hrs. Hypokalemia Hyponatremia Hypomagnesemia -Na, K within normal range now. -Mg 1.5. Received 2g of Mg Sulfate on 07/23/2018. Atrial fibrillation - Continue Metoprolol - No anti-coagulation for now. Full code. SCDs. Discharge plan: Will transfer patient to the med surg floor today. If cleared by GI, we can discharge this patient. She wants to go home. PT recommends patient to return to SNF.
--- NOTE | 2018-07-24 17:13 | P.PNID ---
Subjective Remarks: doing better UA abnormal, clx + for MRSA afebrile sp colonoscopy 07/21: Circumferential diffuse colitis was found in the transverse colon, descending colon, and sigmoid colon; The mucosa was congested, edematous, erythematous, friable, nodular and had granularity; multiple biopsies were performed using cold forceps path with colitis, no psuedomembranes Antibiotics: IV vancomycin Allergies/Adverse Reactions: Allergies erythromycin base Allergy (Verified 07/16/18 22:20) Diarrhea Objective Vital Signs 07/23/18 18:00 07/23/18 19:00 07/23/18 20:00 Temperature 98.1 F Pulse Rate 104 H 135 H 116 H Respiratory Rate 30 H 33 H Blood Pressure 118/61 120/65 Pulse Oximetry 97 96 07/23/18 21:00 07/23/18 22:00 07/23/18 23:00 Temperature Pulse Rate 107 H 107 H 91 H Respiratory Rate 22 24 20 Blood Pressure 109/59 L 112/61 99/60 L Pulse Oximetry 96 96 98 07/24/18 00:00 07/24/18 01:00 07/24/18 02:00 Temperature 97.6 F Pulse Rate 95 H 94 H 98 H Respiratory Rate 26 H 19 22 Blood Pressure 133/82 121/62 119/56 L Pulse Oximetry 97 97 96 07/24/18 03:00 07/24/18 04:00 07/24/18 05:00 Temperature 97.2 F L Pulse Rate 90 81 93 H Respiratory Rate 31 H 16 22 Blood Pressure 119/58 L 118/62 121/62 Pulse Oximetry 98 98 98 07/24/18 06:00 07/24/18 08:00 07/24/18 10:00 Temperature 97.4 F L Pulse Rate 95 H 93 H 94 H Respiratory Rate 20 Blood Pressure 124/67 Pulse Oximetry 98 07/24/18 12:00 07/24/18 14:00 07/24/18 16:00 Temperature 98.3 F 97.9 F Pulse Rate 81 82 87 Respiratory Rate 20 18 Blood Pressure 127/72 113/67 Pulse Oximetry 98 99 Intake & Output 07/23/18 07/24/18 07/24/18 18:59 06:59 18:59 Intake Total 950 / 950 1300 / 1300 Balance 950 / 950 1300 / 1300 Weight 114.5 kg 113.1 kg Intake: IV 150 / 150 1000 / 1000 D5W + KCL 20 mEq Inj 1,000 ML @ 1000 / 1000 42 mls/hr IV.CONT .[id number] [facility] Rx#:[id number] Magnesium Sulfate 1 gm/D5W 100 100 / 100 ml Premix 100 ML @ 100 mls/hr IV.SIG Q1H [facility] Rx#:[id number] Zosyn 3.375 GM Premix 50 ML @ 50 / 50 100 mls/hr IV.SIG Q6H [facility] Rx#: [id number] Oral 800 / 800 300 / 300 Other: # Voids 3 2 # Incontinent Voids 1 2 Date of Last Bowel Movement 07/23/18 07/24/18 07/24/18 # Bowel Movements 2 1 07/22/18 11:20 Stool Enteric Pathogens (PCR) - Final No enteric pathogens detected by PCR (No Salmonella sp., Shigella sp., Campylobacter sp., Yersinia enterocolitica, Vibrio sp., Norovirus, or EHEC (Shiga Toxin 1 or Shiga Toxin 2) detected. 07/17/18 11:03 Blood - Peripheral Aerobic Blood Culture - Final No growth in 5 days 07/17/18 11:03 Blood - Peripheral Anaerobic Blood Culture - Final No growth in 5 days 07/17/18 11:09 Blood - Peripheral Aerobic Blood Culture - Final No growth in 5 days 07/17/18 11:09 Blood - Peripheral Anaerobic Blood Culture - Final No growth in 5 days Lab - Hematology Results 07/23/18 03:14 WBC 6.9 RBC 3.69 L Hgb 10.9 L Hct 33.7 L MCV 91.5 MCH 29.6 MCHC 32.3 RDW 17.0 Plt Count 318 MPV 7.6 Neut % (Auto) 54.5 Lymph % (Auto) 34.1 Wells % (Auto) 6.4 Eos % (Auto) 4.1 H Baso % (Auto) 0.9 Neut # (Auto) 3.8 Lymph # (Auto) 2.4 Wells # (Auto) 0.4 Eos # (Auto) 0.3 Baso # (Auto) 0.1 WBC Differential . Differential Comment Auto diff final Lab - Chemistry Results 07/22/18 07/23/18 22:56 09:15 Sodium 142 Potassium 3.6 3.6 Chloride 114 H Carbon Dioxide 19.9 L Anion Gap 8 BUN 8 Creatinine 0.64 Estimated GFR Greater than 89 Random Glucose 82 Calcium 7.5 L Phosphorus 2.3 L Magnesium 1.5 Total Bilirubin 1.0 Direct Bilirubin 0.3 H Indirect Bilirubin 0.7 AST 24 ALT 18 Alkaline Phosphatase 310 H Total Protein 5.6 L Albumin 1.9 L Imaging: ITS Impressions Abdomen/Pelvis CT 07/17/18 00:00 CONCLUSION: 1. Persistent pericolic inflammatory changes involving the distal transverse colon and descending colon consistent with acute diverticulitis or colitis. 2. Extensive subcutaneous fluid/edema is noted involving the left lateral abdominal wall and is worse than on the previous examination. 3. Multiple calcified nonobstructing bilateral renal calculi. 4. Cholelithiasis. 5. Ventral abdominal wall hernia containing only fat. 6. Degenerative changes and scoliosis of the thoracolumbar spine. 7. 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 8. Posterior bibasilar atelectasis. 9. Stable left renal cysts. Abdomen Ultrasound 07/18/18 00:00 CONCLUSION: Soft tissue edema. Chest X-Ray 07/19/18 06:00 CONCLUSION: Bilateral infiltrates Physical Exam: GENERAL: NAD SKIN: Warm and dry. no rash CARDIOVASCULAR: Regular rate and rhythm. RESPIRATORY: No accessory muscle use. Clear to auscultation. Breath sounds equal bilaterally. GASTROINTESTINAL: Abdomen soft, not tender , nondistended. Hepatic and splenic margins not palpable. MUSCULOSKELETAL: Extremities without clubbing, cyanosis, no significant edema. No obvious deformities. NEUROLOGICAL: Awake and alert. No obvious cranial nerve deficits. non focal PSYCHIATRIC: c saul , coopertive Assessment and Plan - Plan Diverticulitis vs colitis with rectal bleeding - c.diff negative Pt needs colonoscopy but she is not agreable Leukocytosis, extreme bandemia - anialey 2/2 GI/ source MRSA UTI vs secondary bacteriuria colitis on colonsocopy, no e/o c.diff or ischemia zosyn, oral vanco was stopped cont vancomycin IV thru 07/26 - pharmacy to dose OK to dc from ID [facility] dw Dr Cheung
[2018-07-24] MEDS: Vancomycin Inj 1,500 MG in Sodium Chlor 0.9% Inj 500 ML IV.SIG SCH (17:52)
--- NOTE | 2018-07-24 22:30 | CT ---
EXAM DATE: 07/24/2018 9:14 AM EDT AGE/SEX: 73 years / Female INDICATIONS: Ischemic colitis on colonoscopy. CLINICAL DATA: This is the patient's initial encounter. Patient reports that signs and symptoms have been present for 1 day and indicates a pain score of 5/10. MEDICAL/SURGICAL HISTORY: Gastrointestinal bleed. Renal failure, acute. Renal calculi. Hypertens ion, atrial fibrillation, GERD, morbid obesity. Lithotripsy. RADIATION DOSE: 26.48 CTDI (mGy) ; Patient body habitus COMPARISON: [facility] [place], CT ABDOMEN & PELVIS W/O CONTRAST, 07/17/2018. . TECHNIQUE: Volumetric scanning was performed using a multi-row detector CT scanner during bolus infu elissa of 97 ml Omnipaque 350 (iohexol) nonionic water-soluble contrast as a single exam dose. The d baljeet was post processed with a variety of visualization algorithms including full volume maximum inten sity projection, multi-planar sliding thin slab reformation, curved planar reformation, and surface r endering techniques. Using automated exposure control and adjustment of the mA and/or kV according t o patient size, radiation dose was kept as low as reasonably achievable to obtain optimal diagnostic quality images. DICOM format image data is available electronically for review and comparison. FINDINGS: Abdominal Aorta: There are scattered atherosclerotic calcifications. The lumen is smooth without sig nificant narrowing or aneurysmal dilation. The proximal celiac and superior mesenteric arteries ar e patent and normal in diameter. Calcifications are seen at the origin of the SMA. The YENNIFER is patent . There are accessory renal arteries seen superior to the main renal artery bilaterally. There is st enosis at the proximal aspect of the accessory renal artery on the right. Bifurcation: Normal. Right Pelvis: The right common iliac, internal iliac, and external iliac vessels are patent without luminal irregularity. Left Pelvis: The left common iliac, internal iliac, and external iliac vessels are patent and withou t luminal irregularity. There is decreased density seen throughout the liver consistent with diffuse hepatic steatosis. There are gallstones present. The spleen, pancreas and adrenal glands are normal. There is a right uretera l stent in place. There are nonobstructing right renal stone seen in the right collecting system. The re is moderate dilatation the right collecting system. The patient does have a 1.1 cm stone at the le ft UPJ. There are small nonobstructing stone seen in the left collecting system. Left renal cyst are seen. There is thickening of the transverse and proximal descending colon concerning for colitis. There is a midline hernia seen at the level the pelvic inlet. The defect measures 2.3 cm. The hernia sac conta ins mesenteric fat. There is degenerative change in the lumbar spine. There are severe degenerative change seen at the ri t hip with remodeling of the femoral head and acetabulum. The does appear to be edema/anasarca at t he superficial lateral aspects of the lower abdomen bilaterally. CONCLUSION: 1. Atherosclerotic calcification seen throughout the arterial system. An area of significant stenosi s in the aorta, celiac, SMA or YENNIFER is not seen. 2. Accessory renal arteries seen bilaterally with stenosis at the right accessory renal artery. 3. Thickening of the transverse and proximal descending colon consistent with colitis. 4. Midline hernia containing mesenteric fat at the upper pelvis region. 5. Severe degenerative change of the right hip. There is also degenerative change of the lumbar spin e. 6. 1.1 cm stone at the left UPJ. 7. Moderate hydronephrosis on the right side. There is a ureteral stent seen on the right side. Electronically signed by: Elvis Daniels MD 07/24/2018 10:29 PM EDT
[2018-07-25] MEDS: Pantoprazole Inj 40 MG Vial IV.PUSH SCH ×2 (10:10→21:11)
[2018-07-25] MEDS: Metoprolol Tartrate 50 MG Tablet PO SCH ×2 (10:14→21:11)
[2018-07-25] MEDS: KCL 20 mEq/Dextrose 5% Inj 1,000 ML IV.CONT SCH ×2 (11:55→21:12)
--- NOTE | 2018-07-25 16:13 | P.PNGI ---
Subjective Interval history: Pt is resting in bed, denies abd pain, nausea, vomiting, melena or hematochezia <EllentommyErichemant - Last Filed: 07/25/18 16:02> Physical Exam Vital signs: Vital Signs 07/24/18 22:07 07/25/18 00:00 07/25/18 08:00 Temperature 98.3 F 98.7 F 97.8 F Pulse Rate 112 H 105 H 115 H Respiratory Rate 18 18 18 Blood Pressure 114/59 L 105/56 L 128/63 Pulse Oximetry 96 96 98 07/25/18 12:00 Temperature 97.6 F Pulse Rate 95 H Respiratory Rate 17 Blood Pressure 103/56 L Pulse Oximetry 98 Intake & Output 07/24/18 07/25/18 07/25/18 18:59 06:59 18:59 Intake Total 240 / 240 1625 / 1625 250 / 250 Balance 240 / 240 1625 / 1625 250 / 250 Weight 113.1 kg 113 kg Intake: IV 1265 / 1265 250 / 250 D5W + KCL 20 mEq Inj 1,000 ML @ 750 / 750 250 / 250 42 mls/hr IV.CONT .[id number] [facility] Rx#:[id number] Vancomycin Inj 1,500 MG In NS 515 / 515 Inj 500 ML @ 250 mls/hr IV.SIG Q36H [facility] Rx#:[id number] Oral 240 / 240 360 / 360 Other: # Voids 1 3 Date of Last Bowel Movement 07/24/18 07/25/18 # Bowel Movements 1 2 Narrative: GENERAL: Alert, NAD. SKIN: Warm and dry. HEAD: Normocephalic. EYES: No scleral icterus. No injection or drainage. NECK: Supple, trachea midline. No JVD. CARDIOVASCULAR: Regular rate and rhythm without murmurs, gallops, or rubs. RESPIRATORY: Breath sounds equal bilaterally. No accessory muscle use. GASTROINTESTINAL: Abdomen soft, non-tender, nondistended. MUSCULOSKELETAL: No cyanosis. Trace edema. <RileyErichemant - Last Filed: 07/25/18 16:02> Vital signs: Vital Signs 07/25/18 00:00 07/25/18 08:00 07/25/18 12:00 Temperature 98.7 F 97.8 F 97.6 F Pulse Rate 105 H 115 H 95 H Respiratory Rate 18 18 17 Blood Pressure 105/56 L 128/63 103/56 L Pulse Oximetry 96 98 98 07/25/18 16:00 07/25/18 20:11 Temperature 98.0 F 98.4 F Pulse Rate 93 H 99 H Respiratory Rate 19 18 Blood Pressure 109/57 L 96/66 L Pulse Oximetry 99 97 Intake & Output 07/25/18 07/25/18 07/26/18 06:59 18:59 06:59 Intake Total 1625 / 1625 1175 / 1175 1000 / 1000 Balance 1625 / 1625 1175 / 1175 1000 / 1000 Weight 113 kg Intake: IV 1265 / 1265 250 / 250 1000 / 1000 D5W + KCL 20 mEq Inj 1,000 ML @ 750 / 750 250 / 250 1000 / 1000 42 mls/hr IV.CONT .[id number] [facility] Rx#:[id number] Vancomycin Inj 1,500 MG In NS 515 / 515 Inj 500 ML @ 250 mls/hr IV.SIG Q36H [facility] Rx#:[id number] Oral 360 / 360 925 / 925 Other: # Voids 3 4 Date of Last Bowel Movement 07/25/18 # Bowel Movements 2 3 <Mag Garnett - Last Filed: 07/25/18 22:46> Results - Labs CBC & Chem 7: 07/23/18 03:14 07/23/18 09:15 - Imaging Impressions Abdomen/Pelvis CTA 07/24/18 00:00 CONCLUSION: 1. Atherosclerotic calcification seen throughout the arterial system. An area of significant stenosis in the aorta, celiac, SMA or YENNIFER is not seen. 2. Accessory renal arteries seen bilaterally with stenosis at the right accessory renal artery. 3. Thickening of the transverse and proximal descending colon consistent with colitis. 4. Midline hernia containing mesenteric fat at the upper pelvis region. 5. Severe degenerative change of the right hip. There is also degenerative change of the lumbar spine. 6. 1.1 cm stone at the left UPJ. 7. Moderate hydronephrosis on the right side. There is a ureteral stent seen on the right side. <Tyler Lin - Last Filed: 07/25/18 16:02> - Labs CBC & Chem 7: 07/23/18 03:14 07/23/18 09:15 - Imaging Impressions Venous Doppler Study 07/25/18 00:00 CONCLUSION: Superficial vein thrombosis involving the right cephalic vein. No evidence of right upper extremity DVT. <Mag Garnett - Last Filed: 07/25/18 22:46> Assessment and Plan - Plan Symptomatic anemia with Hemoccult positive stool, diarrhea, ischemic colitis- no more bleeding, no diarrhea CT abd/pelvis WO IV contrast --> . Persistent pericolic inflammatory changes involving the distal transverse colon and descending colon consistent with acute diverticulitis or colitis. Extensive subcutaneous fluid/edema is noted involving the left lateral abdominal wall and is worse than on the previous examination. Cholelithiasis. Ventral abdominal wall hernia containing only fat. Colonoscopy (07/22) Moderate diverticulosis was noted in the sigmoid colon. Circumferential diffuse colitis was found in the transverse colon, descending colon, and sigmoid colon; The mucosa was congested, edematous, erythematous, friable, nodular and had granularity; multiple biopsies were performed using cold forceps Internal and external hemorrhoids. Pathology (transverse colon) mildly active chronic colitis with nonspecific features (descending colon) mildly active chronic colitis with nonspecific features (sigmoid colon) acutely inflamed granulation tissue Stools negative for pathogens Abdomen/Pelvis CTA 07/24/18 1. Atherosclerotic calcification seen throughout the arterial system. An area of significant stenosis in the aorta, celiac, SMA or YENNIFER is not seen. 2. Accessory renal arteries seen bilaterally with stenosis at the right accessory renal artery. 3. Thickening of the transverse and proximal descending colon consistent with colitis. 4. Midline hernia containing mesenteric fat at the upper pelvis region. 5. Severe degenerative change of the right hip. There is also degenerative change of the lumbar spine. 6. 1.1 cm stone at the left UPJ. 7. Moderate hydronephrosis on the right side. There is a ureteral stent seen on the right side. - MRSA/ UTI- ID on the case, abx Plan: - ANTONINO - GI will sign off - F/u with GI upon discharge - Colonoscopy in one month - Pt seen and examined by Dr. Garnett and myself and this note is written on her behalf. <Tyler Lin - Last Filed: 07/25/18 16:02> - Attending Attestation seen examined agree with above <Mag Garnett - Last Filed: 07/25/18 22:46>
--- NOTE | 2018-07-25 16:47 | P.PN ---
Subjective Interval history: Follow up for diverticulitis, resolved septic shock, atrial fibrillation. Currently doing well. No acute concerns. No abdominal pain, chest pain, shortness of breath, fever or chills. GI has signed off. Physical Exam Vital signs: Vital Signs 07/24/18 22:07 07/25/18 00:00 07/25/18 08:00 Temperature 98.3 F 98.7 F 97.8 F Pulse Rate 112 H 105 H 115 H Respiratory Rate 18 18 18 Blood Pressure 114/59 L 105/56 L 128/63 Pulse Oximetry 96 96 98 07/25/18 12:00 Temperature 97.6 F Pulse Rate 95 H Respiratory Rate 17 Blood Pressure 103/56 L Pulse Oximetry 98 Intake & Output 07/24/18 07/25/18 07/25/18 18:59 06:59 18:59 Intake Total 240 / 240 1625 / 1625 250 / 250 Balance 240 / 240 1625 / 1625 250 / 250 Weight 113.1 kg 113 kg Intake: IV 1265 / 1265 250 / 250 D5W + KCL 20 mEq Inj 1,000 ML @ 750 / 750 250 / 250 42 mls/hr IV.CONT .[id number] [facility] Rx#:[id number] Vancomycin Inj 1,500 MG In NS 515 / 515 Inj 500 ML @ 250 mls/hr IV.SIG Q36H [facility] Rx#:[id number] Oral 240 / 240 360 / 360 Other: # Voids 1 3 Date of Last Bowel Movement 07/24/18 07/25/18 # Bowel Movements 1 2 Narrative: GENERAL: Alert, NAD. SKIN: Warm and dry. HEAD: Normocephalic. EYES: No scleral icterus. No injection or drainage. NECK: Supple, trachea midline. No JVD. CARDIOVASCULAR: Regular rate and rhythm without murmurs, gallops, or rubs. RESPIRATORY: Breath sounds equal bilaterally. No accessory muscle use. GASTROINTESTINAL: Abdomen soft, non-tender, nondistended. MUSCULOSKELETAL: No cyanosis. Trace edema. Results - Labs CBC & Chem 7: 07/23/18 03:14 07/23/18 09:15 - Imaging Impressions Abdomen/Pelvis CTA 07/24/18 00:00 CONCLUSION: 1. Atherosclerotic calcification seen throughout the arterial system. An area of significant stenosis in the aorta, celiac, SMA or YENNIFER is not seen. 2. Accessory renal arteries seen bilaterally with stenosis at the right accessory renal artery. 3. Thickening of the transverse and proximal descending colon consistent with colitis. 4. Midline hernia containing mesenteric fat at the upper pelvis region. 5. Severe degenerative change of the right hip. There is also degenerative change of the lumbar spine. 6. 1.1 cm stone at the left UPJ. 7. Moderate hydronephrosis on the right side. There is a ureteral stent seen on the right side. Assessment and Plan - Plan Ms. Urena is a pleasant 73 year old female with past medical history of hypertension, hyperlipidemia, atrial fibrillation with a recent hospitalization due to diverticulitis vs. colitis who was admitted to the hospital due to hypotension, suspected GI bleed. She was initially managed by the critical care team. She was started on shahab-Synephrine for hypotension. She was started on ceftriaxone as well as Flagyl. Acute blood loss anemia - Likely due to GI bleed, anticoagulation - Hgb 10.9, stable. GI following. CTA abd/pelvis did not show any acute findings. Sepsis (HR 96, RR 25, WBC 12,1, 13.7, suspected infection intra-abdominal). Acute diverticulitis Diffuse colitis on Colonoscopy - ID following. Currently on IV Vancomycin. ID discontinued PO Vancomycin, Zosyn IV. - Continue Protonix 40mg IV Q12hrs. - Per ID, Vancomycin IV until 07/26/2018. Hypokalemia Hyponatremia Hypomagnesemia -Na, K within normal range now. -Mg 1.5. Received 2g of Mg Sulfate on 07/23/2018. Atrial fibrillation - Continue Metoprolol - No anti-coagulation for now. Full code. SCDs. Discharge: Probable discharge in the AM on 07/26/2018. Patient now wants to consider going to SNF.
--- NOTE | 2018-07-25 18:40 | US ---
EXAM DATE: 07/25/2018 12:00 AM EDT AGE/SEX: 73 years / Female INDICATIONS: Right arm swelling. CLINICAL DATA: This is the patient's initial encounter. Patient reports that signs and symptoms have been present for 1 day and indicates a pain score of 4/10. MEDICAL/SURGICAL HISTORY: . Atrial fibrillation. Chronic kidney disease, stage III. Gastroesoph ageal reflux disease. Hyperlipidemia. Hypertension. Obesity. Urinary tract obstruction by kidney ston e. . Lithotripsy. Ureter stent. Cystoscopy. COMPARISON: No prior exams available for comparison. FINDINGS: Noncompression and nonfilling with color Doppler flow of the cephalic vein indicating supe rficial vein thrombosis. The internal jugular vein, axillary vein, subclavian vein, brachial vein on the right show normal compression and normal color Doppler flow. Other: None. CONCLUSION: Superficial vein thrombosis involving the right cephalic vein. No evidence of right upper extremity D VT. Electronically signed by: Lexa Infante MD 07/25/2018 6:39 PM EDT
[2018-07-26] MEDS: Vancomycin Inj 1,500 MG in Sodium Chlor 0.9% Inj 500 ML IV.SIG SCH (02:15)
--- NOTE | 2018-07-26 09:15 | P.DS ---
Date of admission: 07/17/18 00:10 Primary care physician: Do Sarah Barreto Brief History from admission: 72-year-old female with past medical history of hypertension, hyperlipidemia, atrial fibrillation on chronic anti-coagulation with Eliquis. She recently was admitted to [facility] 06/30/18 with rectal bleeding. She required transfusion of 2 units packed red cells during that admission and subsequent hemoglobin trend was relatively stable.. CT abdomen and pelvis demonstrated diverticulitis versus colitis. She was treated with Levaquin and Flagyl. She was followed by gastroenterology who initially recommended endoscopy however after multiple discussions patient opted to defer on this and gastroenterology recommended follow-up endoscopy in 3-4 weeks as an outpatient. She also had obstructing right ureteral stone and underwent cystoscopy, lithotripsy and ureteral stent 07/06/[address] Amaya. She ultimately was discharged to [facility]. She had lab work that resulted today with hemoglobin of 7.5. She was hypotensive this afternoon with blood pressure in the 80s so repeat lab was drawn and hemoglobin was 6.5 so she was sent to [facility] for evaluation. There Dr. Cunningham did a rectal exam and states the stool was brown with Hemoccult positive. Her hemoglobin is 7.0. Her blood pressure is 80s over 50s with heart rate in the 90s. She has been on metoprolol. She has been back on Eliquis and her last dose was at 9 AM on 07/16/18. She has had ongoing loose stools ever since discharge, usually 1-2 loose stools on average daily, and she was not aware of any blood or melena. She states she has decreased appetite over the last 2-3 days. Denies nausea or vomiting. Although she denied abdominal pain she did have left lower quadrant tenderness on examination. She is afebrile. White blood cell count is 12 with left shift. She was transferred to [facility]. Although packed red cells were ordered, she did not receive any at [facility]. Transfusing 2 units packed red cells now. DS: Medications - Discharge Medications Prescriptions: apixaban 5 mg PO BID #60 tab pantoprazole [Protonix] 40 mg PO DAILY #60 tab potassium chloride [K-Tab] 10 meq PO DAILY #90 tab torsemide 10 mg PO DAILY #30 tab DS: Summary Hospital Course: Ms. Urena is a pleasant 73 year old female with past medical history of hypertension, hyperlipidemia, atrial fibrillation with a recent hospitalization due to diverticulitis vs. colitis who was admitted to the hospital due to hypotension, suspected GI bleed. She was initially managed by the critical care team. She was started on shahab-Synephrine for hypotension. She was started on ceftriaxone as well as Flagyl. Acute blood loss anemia - Likely due to GI bleed, anticoagulation - Hgb 10.9, stable. GI following. CTA abd/pelvis did not show any acute findings. - Would recommend starting Apixaban but not Aspirin as the combination may cause GI bleed again. Sepsis (HR 96, RR 25, WBC 12,1, 13.7, suspected infection intra-abdominal). Acute diverticulitis Diffuse colitis on Colonoscopy - ID following. Patient received IV vancomycin. - Continue Protonix 40mg Q12hrs. Hypokalemia Hyponatremia Hypomagnesemia -Na, K within normal range now. -Mg 1.5. Received 2g of Mg Sulfate on 07/23/2018. Atrial fibrillation - Continue Metoprolol - No anti-coagulation for now. - D/C aspirin and increase Apixaban to 5mg BID. She does not qualify for 2.5mg for anti-coagulation. - [id number] score 3. Chronic CHF - Echo from 06/2018 was not conclusive. She was on Bumex 1mg Qday. We will switch to Torsemide 10mg Qday. Right upper extremity swelling - no DVT. Keep arms elevated. - Time Spent with Patient Total time spent providing and/or coordinating discharge services: Less than 30 minutes - Quality: VTE Deep Vein Thrombosis/Pulmonary Embolism Present on Admission: No Exam Vital signs: Vital Signs 07/25/18 12:00 07/25/18 16:00 07/25/18 20:11 Temperature 97.6 F 98.0 F 98.4 F Pulse Rate 95 H 93 H 99 H Respiratory Rate 17 19 18 Blood Pressure 103/56 L 109/57 L 96/66 L Pulse Oximetry 98 99 97 07/25/18 23:59 07/26/18 00:00 07/26/18 04:00 Temperature 97.9 F Pulse Rate 94 H Respiratory Rate 20 18 18 Blood Pressure 94/55 L Pulse Oximetry 94 L 07/26/18 08:00 Temperature 98.1 F Pulse Rate 91 H Respiratory Rate 18 Blood Pressure 92/57 L Pulse Oximetry 96 Intake & Output 07/25/18 07/26/18 07/26/18 18:59 06:59 18:59 Intake Total 1175 / 1175 2220 / 2220 Balance 1175 / 1175 2220 / 2220 Weight 113 kg Intake: IV 250 / 250 1540 / 1540 D5W + KCL 20 mEq Inj 1,000 ML @ 250 / 250 1000 / 1000 42 mls/hr IV.CONT .[id number] [facility] Rx#:[id number] Vancomycin Inj 1,500 MG In NS 540 / 540 Inj 500 ML @ 250 mls/hr IV.SIG Q36H [facility] Rx#:[id number] Oral 925 / 925 680 / 680 Other: # Voids 4 3 Date of Last Bowel Movement 07/25/18 # Bowel Movements 3 3 Results Procedures completed during hospitalization: None. Completed studies during hospitalization: Pending at discharge 07/21/18 07:20 Surgical [PTH] Routine - Impressions ITS Impressions Abdomen/Pelvis CT 07/17/18 00:00 CONCLUSION: 1. Persistent pericolic inflammatory changes involving the distal transverse colon and descending colon consistent with acute diverticulitis or colitis. 2. Extensive subcutaneous fluid/edema is noted involving the left lateral abdominal wall and is worse than on the previous examination. 3. Multiple calcified nonobstructing bilateral renal calculi. 4. Cholelithiasis. 5. Ventral abdominal wall hernia containing only fat. 6. Degenerative changes and scoliosis of the thoracolumbar spine. 7. 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 8. Posterior bibasilar atelectasis. 9. Stable left renal cysts. Abdomen Ultrasound 07/18/18 00:00 CONCLUSION: Soft tissue edema. Chest X-Ray 07/19/18 06:00 CONCLUSION: Bilateral infiltrates Abdomen/Pelvis CTA 07/24/18 00:00 CONCLUSION: 1. Atherosclerotic calcification seen throughout the arterial system. An area of significant stenosis in the aorta, celiac, SMA or YENNIFER is not seen. 2. Accessory renal arteries seen bilaterally with stenosis at the right accessory renal artery. 3. Thickening of the transverse and proximal descending colon consistent with colitis. 4. Midline hernia containing mesenteric fat at the upper pelvis region. 5. Severe degenerative change of the right hip. There is also degenerative change of the lumbar spine. 6. 1.1 cm stone at the left UPJ. 7. Moderate hydronephrosis on the right side. There is a ureteral stent seen on the right side. Venous Doppler Study 07/25/18 00:00 CONCLUSION: Superficial vein thrombosis involving the right cephalic vein. No evidence of right upper extremity DVT. Discharge Plan - Discharge Disposition Patient Disposition: 03 Discharge to SNF - Discharge Condition Condition: Fair - Discharge Order Discharge Orders: Discharge Order (Routine); Ordered 07/26/18 Ordered By: Roman Cheung - Discharge Details Anticipated Discharge Date: 07/26/18 - Physicians Team Primary Care Provider: Do Sarah Barreto Attending Provider: Roman Cheung Other Providers: Tony Atkins MD ; Dione Parham ; Robyn John MD ; Lisa Jacobsen MD ; [facility],[place]
[2018-07-26] MEDS: Pantoprazole Inj 40 MG Vial IV.PUSH SCH ×2 (09:34→21:32)
[2018-07-26] MEDS: Metoprolol Tartrate 50 MG Tablet PO SCH ×3 (09:35→21:35)
[2018-07-26] MEDS: KCL 20 mEq/Dextrose 5% Inj 1,000 ML IV.CONT SCH (17:16)
[2018-07-27 07:24] LABS: Glomerular Filtration Rate Greater Than 89 mL/min (>89)
[2018-07-27] MEDS: Metoprolol Tartrate 50 MG Tablet PO SCH (09:18)
[2018-07-27] MEDS: Pantoprazole Inj 40 MG Vial IV.PUSH SCH (09:18)
[2018-07-27 14:50] VITALS: RESP 17
[2018-07-27 14:52] VITALS: BP 126/58; PULSE 84; TEMP 98.1; O2SAT 95
[2018-07-29] MEDS ORDERED: Pharmacy Ordered Lab Info OTHER ONE (02:45)
== END 2018-07-27 15:30 ==
LOC: PHED 21:59 → PHEDA 07-17 00:10 → MERGE 07-17 00:10 → PHEDA 07-17 01:53 → HIMC 07-17 02:10 → N07 07-24 15:01
PROVIDERS: ADMIT Hospitalist; ATTEND Hospitalist
PROC: COLONOS (2018-07-21 11:18)

== ENCOUNTER 2018-08-05 12:45 | Observation (INO) ==
--- NOTE | 2018-08-05 13:33 | ED ---
HPI General Chief complaint: Urogenital-Female Stated complaint: Evac/Bleeding Time Seen by Provider: 08/05/18 12:58 Source: patient and EMS Mode of arrival: EMS Limitations: physical limitation History of Present Illness HPI narrative: 73yo F with PMH of HTN, HLD, afib on eliquis, CHF was [facility] by [facility] for [facility] stool. Pt was told she had blood in stool yesterday when he cleaned her. She said today, they found blood in the front of the diaper. She has been bed bound and moves on scooter for years. Denies any fever, chest pain, sob, n/v, abdominal pain, new focal weakness or numbness. Said she feels like she has UTI symptoms. She was recently admitted 07/17/18 for positive hemaprompt and was hypotensive and given blood. Colonoscopy 07/22/18 showed transverse and descending colon colitis as well as hemorrhoids. Pt said the food at the rehab makes her nauseous so have not been eating much. Related Data Home Medications Medication Instructions Recorded Confirmed cholecalciferol (vitamin D3) 2,000 unit PO DAILY 06/15/18 08/05/18 [Vitamin D3] vit C,F-Rp-ztnio-lutein-zeaxan 1 tab PO BID 06/15/18 08/05/18 [PreserVision AREDS-2] zinc sulfate 220 mg PO DAILY 08/05/18 08/05/18 Previous Rx's Medication Instructions Recorded loperamide 1 mg PO Q3H PRN #10 tab 06/23/18 pravastatin 40 mg PO HS tab 07/09/18 metoprolol tartrate [Lopressor] 50 mg PO BID #60 tab 07/10/18 apixaban 5 mg PO BID #60 tab 07/26/18 pantoprazole [Protonix] 40 mg PO DAILY #60 tab 07/26/18 potassium chloride [K-Tab] 10 meq PO DAILY #90 tab 07/26/18 torsemide 10 mg PO DAILY #30 tab 07/26/18 Allergies Allergy/AdvReac Type Severity Reaction Status Date / Time erythromycin base Allergy Diarrhea Verified 07/16/18 22:20 Review of Systems ROS: all other systems reviewed are negative PMFSH Social History Social History Substance History: No History of Abuse Second Hand Smoke Exposure: Yes Smoking Status: Never smoker How Often Do You Have a Drink Containing Alcohol: Never Recent Travel in [place] within the Last 8 Weeks: No Recent Out of Country Travel within the Last 8 Weeks: No Immunization History Tetanus Immunization: Unsure Exam Narrative Exam Narrative: GENERAL: 73yo F in mild distress. SKIN: Focused skin assessment warm/dry. HEAD: Atraumatic. Normocephalic. EYES: Pupils equal and round. No scleral icterus. No injection or drainage. ENT: No nasal bleeding or discharge. Mucous membranes pink and moist. NECK: Trachea midline. No JVD. CARDIOVASCULAR: Tachycardic in the 110s. RESPIRATORY: No accessory muscle use. Clear to auscultation. Breath sounds equal bilaterally. GASTROINTESTINAL: Abdomen soft, non-tender, nondistended. MUSCULOSKELETAL: No obvious deformities. No clubbing. No cyanosis. No edema. RECTAL: +Yellow/brown diarrhea, positive hemaprompt. NEUROLOGICAL: Awake and alert. No obvious cranial nerve deficits. Motor grossly within normal limits in bilateral upper extremities. Pt has had bilateral lower extremity weakness for years. Sensation equal bilaterally. Normal speech. PSYCHIATRIC: Appropriate mood and affect; insight and judgment normal. Procedures Hemaprompt Stool Procedural Steps Taken: specimen placed in appropriate test area and controls appropriately positive and negative Hemaprompt Stool Result: positive Course Initial Documented Vital Signs Temperature 98.7 F 08/05/18 12:57 Pulse Rate 106 H 08/05/18 12:57 Respiratory Rate 18 08/05/18 12:57 Blood Pressure 101/81 08/05/18 12:57 Pulse Oximetry 95 08/05/18 12:57 Last Documented Vital Signs Temperature 97.5 F L 08/05/18 17:32 Pulse Rate 124 H 08/05/18 17:32 Respiratory Rate 18 08/05/18 17:32 Blood Pressure 115/60 08/05/18 17:32 Pulse Oximetry 98 08/05/18 17:32 Medical Decision Making MDM Narrative Medical decision making narrative: 73yo F was brought in from [facility] because staff found blood in stool in her diaper. Labs reviewed, no leukocytosis. H/H is 10.7/30.0. This is about the H/H that pt had when she was discharged earlier this month. She is on eliquis but does not know when her last dose is. Platelet count is elevated 744. Magnesium is low at 1.3, replaced with magnesium sulfate. Calcium low but protein corrected calcium is 8.2. Put a page out to GI. Since pt is on eliquis with positive hemaprompt, will admit for observation, serial H/H and GI consult. Discussed with Dr. Gustafson's PA and accepted to his service. Medical Screen Exam Complete: Yes Emergency Medical Condition: Yes Differential Diagnosis Differential Diagnosis: GI bleed vs. Rectal bleed vs. UTI vs. electrolyte abnormality vs. dehydration Lab Data Result diagrams: 08/05/18 13:45 08/05/18 14:20 Lab Results 08/05/18 08/05/18 08/05/18 Range/Units 13:45 13:45 14:20 CBC w Diff Auto diff final WBC 5.9 (4.0-11.0) th/mm3 RBC 3.36 L (4.00-5.30) mil/mm3 Hgb 10.7 L (11.6-15.3) gm/dL Hct 30.0 L (35.0-46.0) % MCV 89.4 (80.0-100.0) fL MCH 31.8 (27.0-34.0) pg MCHC 35.5 (32.0-36.0) % RDW 17.1 (11.6-17.2) % Plt Count 744 H D (150-450) th/mm3 MPV 7.1 (7.0-11.0) fL Neut % (Auto) 46.4 (16.0-70.0) % Lymph % (Auto) 41.3 (9.0-44.0) % Burke % (Auto) 9.7 H (0.0-8.0) % Eos % (Auto) 1.4 (0.0-4.0) % Baso % (Auto) 1.2 (0.0-2.0) % Neut # (Auto) 2.7 (1.8-7.7) th/mm3 Lymph # (Auto) 2.4 (1.0-4.8) th/mm3 Burke # (Auto) 0.6 (0.0-0.9) th/mm3 Eos # (Auto) 0.1 (0.0-0.4) th/mm3 Baso # (Auto) 0.1 (0.0-0.2) th/mm3 WBC Differential . Differential Comment . PT 15.1 H (9.8-11.6) sec INR 1.5 Ratio APTT 34.8 H (24.3-30.1) sec Sodium (136-145) meq/L Potassium (3.5-5.1) meq/L Chloride (98-107) meq/L Carbon Dioxide (21.0-32.0) meq/L Anion Gap (5-15) meq/L BUN (7-18) mg/dL Creatinine (0.50-1.00) mg/dL Estimated GFR (>89) mL/min Random Glucose (74-106) mg/dL Calcium (8.5-10.1) mg/dL Prot Corrected Calcium (8.5-10.1) mg/dL Magnesium (1.5-2.5) mg/dL Total Protein (6.4-8.2) g/dL Blood Type A Negative Antibody Screen Negative 08/05/18 Range/Units 14:20 CBC w Diff WBC (4.0-11.0) th/mm3 RBC (4.00-5.30) mil/mm3 Hgb (11.6-15.3) gm/dL Hct (35.0-46.0) % MCV (80.0-100.0) fL MCH (27.0-34.0) pg MCHC (32.0-36.0) % RDW (11.6-17.2) % Plt Count (150-450) th/mm3 MPV (7.0-11.0) fL Neut % (Auto) (16.0-70.0) % Lymph % (Auto) (9.0-44.0) % Burke % (Auto) (0.0-8.0) % Eos % (Auto) (0.0-4.0) % Baso % (Auto) (0.0-2.0) % Neut # (Auto) (1.8-7.7) th/mm3 Lymph # (Auto) (1.0-4.8) th/mm3 Burke # (Auto) (0.0-0.9) th/mm3 Eos # (Auto) (0.0-0.4) th/mm3 Baso # (Auto) (0.0-0.2) th/mm3 WBC Differential Differential Comment PT (9.8-11.6) sec INR Ratio APTT (24.3-30.1) sec Sodium 138 (136-145) meq/L Potassium 4.1 (3.5-5.1) meq/L Chloride 104 (98-107) meq/L Carbon Dioxide 26.4 (21.0-32.0) meq/L Anion Gap 8 (5-15) meq/L BUN 15 (7-18) mg/dL Creatinine 0.67 (0.50-1.00) mg/dL Estimated GFR 87 L (>89) mL/min Random Glucose 95 (74-106) mg/dL Calcium 7.1 L* (8.5-10.1) mg/dL Prot Corrected Calcium 8.2 L (8.5-10.1) mg/dL Magnesium 1.3 L (1.5-2.5) mg/dL Total Protein 5.1 L (6.4-8.2) g/dL Blood Type Antibody Screen ECG Data EKG Prior to Arrival: No Attestation: I personally reviewed and interpreted this ECG as follows: Interpretation: Sinus tachycardia at 116bpm. LAD. Q wave III, aVF. No significant ST elevation or depression. Discharge Plan Discharge Disposition Patient Disposition: 30 Still Patient Discharge Details Diagnosis: GI bleed Physicians Team ED Provider: Magda Paul Primary Care Provider: Do Sarah Barreto Attending Provider: Goldie Gustafson Other Providers: Oanh Felipe Status ED Status: Left Department Discharge Information Discharge Date/Time: 08/05/18 16:48
[2018-08-05] MEDS ORDERED: Sodium Chlor 0.9% Inj 500 ML IV.SIG SCH (14:00)
[2018-08-05 14:02] LABS: Baso # (Auto) 0.1 th/mm3 (0.0-0.2); Baso % (Auto) 1.2 % (0.0-2.0); Eos # (Auto) 0.1 th/mm3 (0.0-0.4); Eos % (Auto) 1.4 % (0.0-4.0); Hemoglobin 10.7 gm/dL (11.6-15.3); Lymph # (Auto) 2.4 th/mm3 (1.0-4.8); Lymph % (Auto) 41.3 % (9.0-44.0); Mean Corpuscular HGB Conc 35.5 % (32.0-36.0); Mean Corpuscular Hemoglobin 31.8 pg (27.0-34.0); Mean Corpuscular Volume 89.4 fL (80.0-100.0); Mean Platelet Volume 7.1 fL (7.0-11.0); Mono # (Auto) 0.6 th/mm3 (0.0-0.9); Mono % (Auto) 9.7 % (0.0-8.0); Neut # (Auto) 2.7 th/mm3 (1.8-7.7); Neut % (Auto) 46.4 % (16.0-70.0); Platelet Count 744 th/mm3 (150-450); Red Blood Count 3.36 mil/mm3 (4.00-5.30); Red Cell Distribution Width 17.1 % (11.6-17.2); White Blood Count 5.9 th/mm3 (4.0-11.0)
[2018-08-05 14:45] LABS: Potassium 4.1 meq/L (3.5-5.1)
[2018-08-05 14:52] LABS: Activated Partial Thrombo Time 34.8 sec (24.3-30.1); INR 1.5 Ratio; Prothrombin Time 15.1 sec (9.8-11.6)
[2018-08-05 14:59] LABS: Calcium 7.1 mg/dL (8.5-10.1); Carbon Dioxide 26.4 meq/L (21.0-32.0); Magnesium 1.3 mg/dL (1.5-2.5)
[2018-08-05] MEDS ORDERED: Mag Sulf 1 gm/100 ml Premix 100 ML IV.SIG ONE (15:33)
[2018-08-05 15:41] LABS: Total Protein 5.1 g/dL (6.4-8.2)
--- NOTE | 2018-08-05 16:29 | P.HP ---
History of Present Illness Primary Care Physician: Do Sarah Barreto Chief Complaint: Blood in stool History of Present Illness: 73-year-old female with known history of recent GI bleed, atrial fibrillation on oral anticoagulant, chronic kidney disease, Gastrosoft reflux, hypertension, hyperlipidemia, obesity, who presented the hospital the request of local nursing facility because of blood noted in her stool. [facility] some strength. She is relatively bedbound and only moves around by scooters. Patient was at rehab facility undergoing physical therapy when yesterday they noticed that there was some blood in her stool, they notified nursing staff as well as physician and they did not do anything about it yesterday, however today they also noticed blood in her diapers so they sent her to the emergency department for evaluation. Patient did have blood work done yesterday which her hemoglobin was 9.7, blood work was done today which was 10.7. Patient will recent admission for GI bleed in which her hemoglobin was 10.9 on discharge at that time on 07/23/18. Patient has been seen by GI physicians has undergone colonoscopy on 07/21/18. During that time patient was found to have circumferential diffuse colitis in the transverse colon, descending colon and sigmoid colon. There was reviewed internal hemorrhoids and external hemorrhoids. Biopsies were taken at that time which did show active chronic colitis with nonspecific features, acutely inflamed granulation tissue. Patient is at risk for GI bleed due to her atrial fibrillation on Eliquis. Patient denies any symptoms related to the GI bleed. She denies any shortness of breath, lightheadedness, dizziness, fatigue. ER physician recommended that the patient be observed in the hospital for further evaluation and management. - Diagnosis (1) GI bleed Review of Systems All other systems reviewed negative except as stated in HPI Gastrointestinal: Reports bright, red blood in stools PMFSH - History History Provided By: Patient - Medical History Medical History: Medical History (Last Reviewed 08/05/18 @ 16:18 by KAYLA Lee) Atrial fibrillation CKD (chronic kidney disease) stage 3, GFR 30-59 ml/min GERD (gastroesophageal reflux disease) HLD (hyperlipidemia) HTN (hypertension) Obesity, morbid, BMI 40.0-49.9 Urinary tract obstruction by kidney stone - Surgical History Surgical History: Surgical History (Last Reviewed 10/24/18 @ 16:18 by KAYLA Lee) History of lithotripsy History of ureter stent Hx of cystoscopy - Family History Family History: Family History (Last Reviewed 08/05/18 @ 16:18 by KAYLA Lee) Other No significant family history - Tobacco History Second Hand Smoke Exposure: No Tobacco Use In Past 30 Days: No Smoking Status: Unknown if ever smoked - Alcohol History How Often Do You Have a Drink Containing Alcohol: Never - Substance Use History Substance History: No History of Abuse - Travel History Recent Travel in the [place] Within the Last 8 Weeks: No Recent Travel Out of the Country Within the Last 8 Weeks: No - Immunization History Tetanus Immunization: Unsure Medications and Allergies Active Medications: Active Medications Sodium Chloride (Ns Inj) 500 mls @ 0 mls/hr IV.SIG BOLUS IRVING Last Admin: 08/05/18 15:47 Dose: 1,000 mls/hr Magnesium Sulfate/Dextrose (Magnesium Sulfate 1 Gm/D5w 100 Ml Premix) 100 mls @ 100 mls/hr IV.SIG ONCE ONE Stop: 08/05/18 16:32 Last Admin: 08/05/18 15:50 Dose: 100 mls/hr Sodium Chloride (Ns Inj) 1,000 mls @ 84 mls/hr IV.CONT .[id number] IRVING Metoprolol Tartrate (Lopressor) 50 mg PO BID IRVING Allergies Allergy/AdvReac Type Severity Reaction Status Date / Time erythromycin base Allergy Diarrhea Verified 07/16/18 22:20 Home Medications Medication Instructions Recorded Confirmed Type cholecalciferol (vitamin D3) 2,000 unit PO DAILY 06/15/18 08/05/18 History [Vitamin D3] vit C,L-Hz-jijqp-lutein-zeaxan 1 tab PO BID 06/15/18 08/05/18 History [PreserVision AREDS-2] zinc sulfate 220 mg PO DAILY 08/05/18 08/05/18 History Exam Vital signs: Vital Signs 08/05/18 12:57 Temperature 98.7 F Pulse Rate 106 H Respiratory Rate 18 Blood Pressure 101/81 Pulse Oximetry 95 Intake & Output 08/04/18 08/05/18 08/05/18 18:59 06:59 18:59 Weight 181.437 kg Narrative: GENERAL: Well-developed, well-nourished, in no acute distress. alert and orientated HEENT: Head is normocephalic without any lesions or masses noted. Facial features are symmetric. Eyes: Pupils equal round reactive to light. Extraocular muscles are intact. Conjunctivae were clear. Oropharyngeal: Pharynx without any erythema edema. Tongue is midline without deviation. Buccal mucosa is moist without any masses or lesions NECK: Supple without any masses. Trachea midline no deviation. No JVD, no bruits are appreciated CARDIAC: Regular rhythm, regular rate. S1/S2 are heard. No murmurs gallops or rubs. LUNGS: Clear to auscultation bilaterally. No wheeze, rhonchi or rales. No use of accessory muscles on inspiration or expiration. ABDOMEN: Soft, nontender. Nondistended. Bowel sounds heard in all 4 quadrants. No organomegaly or masses. Negative rebound, negative guarding EXTREMITIES: No edema, pulses are equal bilaterally. No cyanosis or clubbing NEUROLOGY: Mood and affect appear appropriate. Cranial nerves II through XII grossly intact. Muscle strength 5/5 in upper and lower extremities bilaterally. Deep tendon reflexes are 2+ in upper and lower extremities bilaterally. Results - Labs CBC & Chem 7: 08/05/18 13:45 08/05/18 14:20 Labs: Laboratory Results - last 24 hr 08/05/18 08/05/18 08/05/18 13:45 13:45 14:20 CBC w Diff Auto diff final WBC 5.9 RBC 3.36 L Hgb 10.7 L Hct 30.0 L MCV 89.4 MCH 31.8 MCHC 35.5 RDW 17.1 Plt Count 744 H D MPV 7.1 Neut % (Auto) 46.4 Lymph % (Auto) 41.3 [place] % (Auto) 9.7 H Eos % (Auto) 1.4 Baso % (Auto) 1.2 Neut # (Auto) 2.7 Lymph # (Auto) 2.4 [place] # (Auto) 0.6 Eos # (Auto) 0.1 Baso # (Auto) 0.1 WBC Differential . Differential Comment . PT 15.1 H INR 1.5 APTT 34.8 H Sodium Potassium Chloride Carbon Dioxide Anion Gap BUN Creatinine Estimated GFR Random Glucose Calcium Prot Corrected Calcium Magnesium Total Protein Blood Type A Negative Antibody Screen Negative 08/05/18 14:20 CBC w Diff WBC RBC Hgb Hct MCV MCH MCHC RDW Plt Count MPV Neut % (Auto) Lymph % (Auto) [place] % (Auto) Eos % (Auto) Baso % (Auto) Neut # (Auto) Lymph # (Auto) [place] # (Auto) Eos # (Auto) Baso # (Auto) WBC Differential Differential Comment PT INR APTT Sodium 138 Potassium 4.1 Chloride 104 Carbon Dioxide 26.4 Anion Gap 8 BUN 15 Creatinine 0.67 Estimated GFR 87 L Random Glucose 95 Calcium 7.1 L* Prot Corrected Calcium 8.2 L Magnesium 1.3 L Total Protein 5.1 L Blood Type Antibody Screen Caprini VTE Risk Assessment Caprini VTE Risk Assessment: Moderate/High Risk (score >= 2) Caprini Risk Assessment Model: Point Value = 1 Point Value = 2 Point Value = 3 Point Value = 5 Age 41-60 Minor surgery BMI > 25 kg/m2 Swollen legs Varicose veins or History of unexplained or recurrent spontaneous Oral contraceptives or hormone replacement Sepsis (< 1 month) Serious lung disease, including pneumonia (< 1 month) Abnormal pulmonary function Acute myocardial infarction Congestive heart failure (< 1 month) History of inflammatory bowel disease Medical patient at bed rest Age 61-74 Arthroscopic surgery Major open surgery (> 45 min) Laparoscopic surgery (> 45 min) Malignancy Confined to bed (> 72 hours) Immobilizing plaster cast Central venous access Age >= 75 History of VTE Family history of VTE Factor V Leiden Prothrombin [id number] Lupus anticoagulant Anticardiolipin antibodies Elevated serum homocysteine Heparin-induced thrombocytopenia Other congenital or acquired thrombophilia Stroke (< 1 month) Elective arthroplasty Hip, pelvis, or leg fracture Acute spinal cord injury (< 1 month) Prophylaxis Regimen: Total Risk Factor Score Risk Level Prophylaxis Regimen 0-1 Low Early ambulation 2 Moderate Order ONE of the following: *Sequential Compression Device (SCD) *Heparin 5000 units SQ BID 3-4 Higher Order ONE of the following medications: *Heparin 5000 units SQ TID *Enoxaparin/Lovenox 40 mg SQ daily (WT < 150 kg, CrCl > 30 mL/min) *Enoxaparin/Lovenox 30 mg SQ daily (WT < 150 kg, CrCl > 10-29 mL/min) *Enoxaparin/Lovenox 30 mg SQ BID (WT < 150 kg, CrCl > 30 mL/min) AND/OR *Sequential Compression Device (SCD) 5 or more Highest Order ONE of the following medications: *Heparin 5000 units SQ TID (Preferred with Epidurals) *Enoxaparin/Lovenox 40 mg SQ daily (WT < 150 kg, CrCl > 30 mL/min) *Enoxaparin/Lovenox 30 mg SQ daily (WT < 150 kg, CrCl > 10-29 mL/min) *Enoxaparin/Lovenox 30 mg SQ BID (WT < 150 kg, CrCl > 30 mL/min) AND *Sequential Compression Device (SCD) Assessment and Plan - Assessment (1) GI bleed Code(s): K92.2 - Gastrointestinal hemorrhage, unspecified Status: Acute - Plan GI bleed -Patient with increased risk of GI bleed due to oral anticoagulation with Eliquis. -Patient's hemoglobin is actually stable as compared to 2 weeks ago when she was hospitalized and underwent colonoscopy at that time -We will continue monitor hemoglobin hematocrit every 6 hours, transfuse if hemoglobin below 8.0 -Continue proton pump inhibitor -Consult GI for further recommendations Chronic atrial fibrillation -Continue home medications -We will hold anticoagulation until cleared by GI DVT prevention -Sequential compression devices
[2018-08-05] MEDS: Pantoprazole Inj 40 MG Vial IV.PUSH SCH (17:32)
[2018-08-05] MEDS: Sod Chloride 0.9% Inj 1,000 ML IV.CONT SCH (17:33)
--- NOTE | 2018-08-05 20:27 | MB ---
cc: Oanh Felipe MD DATE: 08/05/2018 REASON FOR REFERRAL: Rectal bleeding. Thank you for the consultation. HISTORY OF PRESENT ILLNESS: A 73-year-old lady who was transferred from the rehab facility because the staff saw some blood in the rectum. The patient has recent GI bleed, which was evaluated by endoscopy and colonoscopy, which showed some colitis and hemorrhoids and diverticulosis. According to the record and the patient, the patient also had an upper endoscopy, the patient has multiple medical problems. She denies any abdominal pain. She has some loose stool. No nausea or vomiting and she does not feel that she is really having bleeding and she felt that the staff panicked and sent her here. The patient had diffuse colitis in the transverse colon, descending colon, and sigmoid. The patient also had internal hemorrhoid and external hemorrhoid. Biopsy were taken, which showed active chronic colitis. The patient is on Eliquis. Her hemoglobin is stable since discharge. REVIEW OF SYSTEMS: All 12-point negative except HPI. PAST MEDICAL HISTORY: Significant for hyperlipidemia, hypertension, morbid obesity, urinary tract obstruction, right kidney stone, reflux, chronic kidney disease, atrial fibrillation, lithotripsy, ureteral stent, cystoscopy. FAMILY HISTORY: Noncontributory. SOCIAL HISTORY: Negative for tobacco, drug or alcohol. MEDICATIONS: Reviewed in the chart. ALLERGY: ERYTHROMYCIN. PHYSICAL EXAMINATION: GENERAL: Alert, oriented, in no acute distress, well developed, morbidly obese. HEENT: Pupils round, reactive to light. NECK: Supple. CHEST: Clear to auscultation and percussion. CARDIOVASCULAR: Regular rate and rhythm. ABDOMEN: No abdominal pain. Positive bowel sounds. No hepatosplenomegaly that I could appreciate. EXTREMITIES: No edema, clubbing, or cyanosis. NEUROLOGIC: Alert and oriented. No acute distress. PSYCHIATRIC: Appropriate. LABORATORY DATA: White count 5.8, hemoglobin 10.7. When she was admitted, it was 10.7 and when she was discharged, it was 10.9, platelets 744. INR 1.5. Chemistry: BUN 15, creatinine 0.67. Clostridium difficile is pending. ASSESSMENT AND PLAN: A 73-year-old lady who has multiple medical problems. The patient never had Clostridium difficile before. She had a small amount of blood in the stool. This could be related to hemorrhoid or it could be related to the colitis, especially with the patient on a blood thinner. She had a colonoscopy about 14 days ago, which showed moderate diverticular disease, diffuse colitis in the transverse colon, descending colon, and sigmoid. This biopsy was nonspecific. The patient is not even interested in having any procedure done. We will monitor her hemoglobin. We will continue supportive care and hydration and we will check Clostridium difficile. Further plan depends on how she is doing. Oanh Felipe MD AH/sv , 07:07 PM , 07:19 PM
[2018-08-05 21:06] LABS: Baso % (Auto) 0.9 % (0.0-2.0); Eos # (Auto) 0.1 th/mm3 (0.0-0.4); Eos % (Auto) 1.1 % (0.0-4.0); Hematocrit 26.4 % (35.0-46.0); Hemoglobin 8.6 gm/dL (11.6-15.3); Lymph # (Auto) 1.7 th/mm3 (1.0-4.8); Lymph % (Auto) 34.7 % (9.0-44.0); Mean Corpuscular HGB Conc 32.8 % (32.0-36.0); Mean Corpuscular Hemoglobin 29.9 pg (27.0-34.0); Mean Corpuscular Volume 91.3 fL (80.0-100.0); Mean Platelet Volume 7.1 fL (7.0-11.0); Mono # (Auto) 0.6 th/mm3 (0.0-0.9); Mono % (Auto) 12.4 % (0.0-8.0); Neut # (Auto) 2.6 th/mm3 (1.8-7.7); Neut % (Auto) 50.9 % (16.0-70.0); Platelet Count 620 th/mm3 (150-450); Red Blood Count 2.89 mil/mm3 (4.00-5.30); Red Cell Distribution Width 16.7 % (11.6-17.2)
[2018-08-05 23:39] VITALS: RESP 20
[2018-08-05] MEDS: Metoprolol Tartrate 50 MG Tablet PO SCH (23:44)
[2018-08-06 02:41] LABS: Bilirubin,Urine Negative (Negative); Clarity,Urine Cloudy (Clear); Glucose,Urine (UA) Negative (Negative); Leukocyte Esterase,Urine Large (Negative); Nitrite,Urine Positive (Negative); Specific Gravity,Urine 1.015 (1.002-1.035)
[2018-08-06 02:44] LABS: Hematocrit 29.3 % (35.0-46.0); Hemoglobin 9.8 gm/dL (11.6-15.3)
[2018-08-06 02:50] LABS: Color,Urine Red (Yellw/Straw); Ictotest,Urine Negative (Negative)
[2018-08-06 02:57] LABS: RBC,Urine Innumerable /hpf (0-3)
[2018-08-06 02:58] LABS: Bacteria,Urine Many /hpf; Squamous Epithelial Cell,Urine 0-5 /hpf (0-5); WBC,Urine 51-189 /hpf (0-5)
[2018-08-06] MEDS: Pantoprazole Inj 40 MG Vial IV.PUSH SCH (04:29)
[2018-08-06] MEDS: Sod Chloride 0.9% Inj 1,000 ML IV.CONT SCH (04:33)
[2018-08-06] MEDS: Metoprolol Tartrate 50 MG Tablet PO SCH ×2 (09:30→09:44)
--- NOTE | 2018-08-06 10:34 | P.PNWCN ---
Wound Care Nurse Consult Description: wound consult ordered by for wound management. Communicated with: Lesly PRADO, Recommendation: 1. Manually reposition patient every 2 hours for offloading and comfort. 2. Cleanse intra gluteal/sacral region with remedy soft cloth barrier wipes. 3. Apply Calazime cream to intra gluteal cleft ,stage 2 pressure injury to sacrum.BID or after incontinence. 4. Please do not use brief on patient for incontinence patient is immobile. Please don not use cotton underpads.Use Purwic external catheter and UltraSorb underpads. 5. Apply thin even layer of remedy antifungal powder to pannus skin folds BID. Additional information: Patient was seen today for wound management .Patient resting in bed in no acute distress.Patient states she does not ambulate and is incontinent of bowel and bladder. Upon assessment patient noted to be on 2 cotton under pads and 2 ultrasorb with adult briefs.patient was repositioned to her right side with total assist from health technical writer. multiple layer removed from under patient .Patient had medium loose stool myron care performed .Broadcast Producer was able visualize sacral/ coccyx region.Patient has stage 2 pressure injury measuring ~1.0cm x0.5cm x 0.2cm wound base is moist pink granular tissue wound edges are well defined sloped with wound base.periwound intact blanchable to touch.pressure injury noted upon admission.Wound cleansed with normal saline pat dry Calazime cream applied in thick layer to sacrum and bilateral gluteus.patient noted to have mild moisture associated damage to bilateral gluteus.Patient was placed on flat sheet and UltraSorb under pad and offloaded on left side. Wound/Pressure Injury - Patient Status Premedicated for Pain Prior to Dressing Change: No - Wound Sacrum Wound Staging: Stage II Wound Assessment: Admission Wound Type: Pressure Injury Is This a Chronic Wound: Yes Requested from Provider a Wound Care Consult: No (Clarisa PRADO,[facility] seen 08/06) Length (cm): 1.0 Width (cm): 0.5 Depth (cm): 0.2 Wound Bed Appearance: [place] Surrounding Tissue Appearance: Blanched/Dull Surrounding Tissue Temperature: Cool Drainage Description: Serous Drainage Amount: Scant Dressing Status: Changed, Open to Air Topical: Calazime
--- NOTE | 2018-08-06 12:08 | P.PN ---
Subjective Interval history: 73-year-old female who is seen and examined today for follow-up on blood in stool. Patient resting comfortably. Denies any recurrent bloody stool. Hemoglobin has remained stable. Patient does not want to have any procedures. Vital signs are stable. Patient remains afebrile. Physical Exam Vital signs: Vital Signs 08/05/18 12:57 08/05/18 16:24 08/05/18 17:32 Temperature 98.7 F 97.5 F L Pulse Rate 106 H 110 H 124 H Respiratory Rate 18 19 18 Blood Pressure 101/81 111/51 L 115/60 Pulse Oximetry 95 96 98 08/05/18 20:00 08/05/18 23:36 08/06/18 08:00 Temperature 98.1 F 97.5 F L 97.9 F Pulse Rate 119 H 114 H 102 H Respiratory Rate 18 20 20 Blood Pressure 91/60 L 104/59 L 101/50 L Pulse Oximetry 92 L 96 97 Intake & Output 08/05/18 08/06/18 08/06/18 18:59 06:59 18:59 Intake Total 600 / 600 1120 / 1120 100 / 100 Balance 600 / 600 1120 / 1120 100 / 100 Weight 181.437 kg 181.4 kg Intake: IV 600 / 600 1000 / 1000 100 / 100 NS Inj 1,000 ML @ 84 mls/hr IV. 1000 / 1000 CONT .[id number] IRVING Rx#: [id number] Magnesium Sulfate 1 gm/D5W 100 100 / 100 ml Premix 100 ML @ 100 mls/hr IV.SIG ONCE ONE Rx#:[id number] NS Inj 500 ML @ Wide Open IV. 500 / 500 SIG BOLUS IRVING Rx#:[id number] Rocephin Inj 1,000 MG In NS Inj 100 / 100 100 ML @ 200 mls/hr IV.SIG Q24H IRVING Rx#:[id number] Oral 120 / 120 Other: # Bowel Movements 1 Narrative: GENERAL: Well-developed, well-nourished, in no acute distress. alert and orientated HEENT: Head is normocephalic without any lesions or masses noted. Facial features are symmetric. Eyes: Extraocular muscles are intact. Conjunctivae were clear. NECK: Supple without any masses. Trachea midline no deviation. No JVD, CARDIAC: Regular rhythm, regular rate. S1/S2 are heard. No murmurs gallops or rubs. LUNGS: Clear to auscultation bilaterally. No wheeze, rhonchi or rales. No use of accessory muscles on inspiration or expiration. ABDOMEN: Soft, nontender. Nondistended. Bowel sounds heard in all 4 quadrants. No organomegaly or masses. Negative rebound, negative guarding EXTREMITIES: No edema, pulses are equal bilaterally. No cyanosis or clubbing NEUROLOGY: Mood and affect appear appropriate. Cranial nerves II through XII grossly intact. Moving all extremities, speech is clear Results - Labs CBC & Chem 7: 08/06/18 02:30 08/05/18 14:20 Laboratory Results - last 24 hr 08/05/18 08/05/18 08/05/18 13:45 13:45 14:20 CBC w Diff Auto diff final WBC 5.9 RBC 3.36 L Hgb 10.7 L Hct 30.0 L MCV 89.4 MCH 31.8 MCHC 35.5 RDW 17.1 Plt Count 744 H D MPV 7.1 Neut % (Auto) 46.4 Lymph % (Auto) 41.3 [place] % (Auto) 9.7 H Eos % (Auto) 1.4 Baso % (Auto) 1.2 Neut # (Auto) 2.7 Lymph # (Auto) 2.4 [place] # (Auto) 0.6 Eos # (Auto) 0.1 Baso # (Auto) 0.1 WBC Differential . Differential Comment . PT 15.1 H INR 1.5 APTT 34.8 H Sodium Potassium Chloride Carbon Dioxide Anion Gap BUN Creatinine Estimated GFR Random Glucose Calcium Prot Corrected Calcium Magnesium Total Protein Urine Color Urine Clarity Urine pH Ur Specific [place] Urine Protein Urine Glucose (UA) Urine Ketones Urine Occult Blood Urine Nitrate Urine Bilirubin Urine Ictotest Urine Urobilinogen Ur Leukocyte Esterase Urine RBC Urine WBC Urine WBC Clumps Ur Squamous Epith Cells Urine Bacteria Micro UA Comment Ur Microscopic Review Urine Culture Comments Stl C.difficile DNA Amp St C. diff Tox Epid 027 Blood Type A Negative Antibody Screen Negative 08/05/18 08/05/18 08/05/18 14:20 16:33 20:45 CBC w Diff Auto diff final WBC 5.0 RBC 2.89 L Hgb 8.6 L D Hct 26.4 L MCV 91.3 MCH 29.9 MCHC 32.8 RDW 16.7 Plt Count 620 H MPV 7.1 Neut % (Auto) 50.9 Lymph % (Auto) 34.7 [place] % (Auto) 12.4 H Eos % (Auto) 1.1 Baso % (Auto) 0.9 Neut # (Auto) 2.6 Lymph # (Auto) 1.7 [place] # (Auto) 0.6 Eos # (Auto) 0.1 Baso # (Auto) 0.0 WBC Differential . Differential Comment . PT INR APTT Sodium 138 Potassium 4.1 Chloride 104 Carbon Dioxide 26.4 Anion Gap 8 BUN 15 Creatinine 0.67 Estimated GFR 87 L Random Glucose 95 Calcium 7.1 L* Prot Corrected Calcium 8.2 L Magnesium 1.3 L Total Protein 5.1 L Urine Color Urine Clarity Urine pH Ur Specific Jackson Urine Protein Urine Glucose (UA) Urine Ketones Urine Occult Blood Urine Nitrate Urine Bilirubin Urine Ictotest Urine Urobilinogen Ur Leukocyte Esterase Urine RBC Urine WBC Urine WBC Clumps Ur Squamous Epith Cells Urine Bacteria Micro UA Comment Ur Microscopic Review Urine Culture Comments Stl C.difficile DNA Amp Negative St C. diff Tox Epid 027 Negative Blood Type Antibody Screen 08/06/18 08/06/18 08/06/18 02:30 02:30 02:30 CBC w Diff WBC RBC Hgb 9.8 L Hct 29.3 L MCV MCH MCHC RDW Plt Count MPV Neut % (Auto) Lymph % (Auto) [place] % (Auto) Eos % (Auto) Baso % (Auto) Neut # (Auto) Lymph # (Auto) [place] # (Auto) Eos # (Auto) Baso # (Auto) WBC Differential Differential Comment PT INR APTT Sodium Potassium Chloride Carbon Dioxide Anion Gap BUN Creatinine Estimated GFR Random Glucose Calcium Prot Corrected Calcium Magnesium 1.3 L Total Protein Urine Color Red H Urine Clarity Cloudy H Urine pH 7.0 Ur Specific [place] 1.015 Urine Protein 300 or greater H Urine Glucose (UA) Negative Urine Ketones Trace H Urine Occult Blood Large H Urine Nitrate Positive H Urine Bilirubin Negative Urine Ictotest Negative Urine Urobilinogen 1.0 Ur Leukocyte Esterase Large H Urine RBC Innumerable H Urine WBC 51-189 H Urine WBC Clumps Many H Ur Squamous Epith Cells 0-5 Urine Bacteria Many H Micro UA Comment Culture indicated Ur Microscopic Review Microscopic reviewed Urine Culture Comments Culture indicated Stl C.difficile DNA Amp St C. diff Tox Epid 027 Blood Type Antibody Screen Assessment and Plan - Assessment (1) GI bleed Code(s): K92.2 - Gastrointestinal hemorrhage, unspecified Status: Acute - Plan GI bleed -Patient with increased risk of GI bleed due to oral anticoagulation with Eliquis. -Patient's hemoglobin is actually stable as compared to 2 weeks ago when she was hospitalized and underwent colonoscopy at that time, which did show some colitis, hemorrhoids -Hemoglobin was trended which was stable during her stay in the hospital -Continue proton pump inhibitor -Consult GI for further recommendations, they recommended continue follow H&H, patient does not want to pursue any procedures, check C. difficile culture, -Clostridium difficile testing was negative -Discussed with GI today who indicates that since hemoglobin stable, C. difficile is negative, patient may return back to nursing home facility on Eliquis. Chronic atrial fibrillation -Continue home medications -GI indicated okay to resume Eliquis DVT prevention -Sequential compression devices Discharge Planning: Discharge home in stable condition Activity: Ad ayaan. Diet: Healthy heart diet Medication per medication reconciliation Follow-up with primary medical doctor in 1 week
--- NOTE | 2018-08-06 13:31 | ECG ---
Date Performed: 08/05/2018 Time Performed: 13:14:16 PTAGE: 73 years EKG: SINUS TACHYCARDIA INFERIOR MYOCARDIAL INFARCTION ABNORMAL ECG rate has increased since prio r tracing Since prior tracing Inferior infarct may be new but Clinical correlation is recommended PREVIOUS TRACING : 07/21/2018 05.37 DOCTOR: Franco Jones Interpretating Date/Time 08/06/2018 13:32:10
[2018-08-06 13:52] LABS: Hemoglobin 10.1 gm/dL (11.6-15.3)
[2018-08-06 14:33] VITALS: BP 97/53; PULSE 106; TEMP 96.6; O2SAT 98
== END 2018-08-06 15:02 ==
LOC: PHED 12:45 → PHEDA 12:45 → MERGE 15:52 → PH3 16:45
PROVIDERS: ADMIT Internal Medicine; ATTEND Internal Medicine

== ENCOUNTER 2018-08-27 19:27 | Inpatient (IN) ==
[~2018-08-27 19:27] MED LIST: DOPamine 800 MG/500 ML Premix 800 MG/500 ML PLAST..BAG IV.CONT ONE; Magnesium Sulfate Inj 40 MEQ/10 ML Vial IV.SIG ONE
[2018-08-27] MEDS ORDERED: Pantoprazole Inj 80 MG in Sodium Chlor 0.9% Inj 100 ML IV.CONT SCH ×2 (20:00→22:00)
--- NOTE | 2018-08-27 20:20 | ED ---
HPI General Chief complaint: GI Bleed Stated complaint: Emergent Time Seen by Provider: 08/27/18 19:38 Source: EMS Mode of arrival: EMS Limitations: altered mental status History of Present Illness HPI narrative: Patient is a 73-year-old female presenting to emerge department via EMS for evaluation of altered mental status. Patient has been this way for approximately 3 days. Per EMS report patient has been lethargic but arouses easily. MCC reported to EMS patient has had nausea, vomiting, diarrhea times 3 days. Patient has a history of GI bleed x2 in the past. H&P is limited due to patient's mental status. Past medical history significant for GERD, GI bleed, hypertension, hyperlipidemia, chronic kidney disease, A. fib , CHF. Patient is on Eliquis. Onset (ago): day(s) Related Data Home Medications Medication Instructions Recorded Confirmed cholecalciferol (vitamin D3) 2,000 unit PO DAILY 06/15/18 08/27/18 [Vitamin D3] vit C,F-Qo-sfwtr-lutein-zeaxan 1 tab PO BID 06/15/18 08/27/18 [PreserVision AREDS-2] zinc sulfate 220 mg PO DAILY 08/05/18 08/27/18 Previous Rx's Medication Instructions Recorded loperamide 1 mg PO Q3H PRN #10 tab 06/23/18 pravastatin 40 mg PO HS tab 07/09/18 metoprolol tartrate [Lopressor] 50 mg PO BID #60 tab 07/10/18 apixaban 5 mg PO BID #60 tab 07/26/18 pantoprazole [Protonix] 40 mg PO DAILY #60 tab 07/26/18 potassium chloride [K-Tab] 10 meq PO DAILY #90 tab 07/26/18 torsemide 10 mg PO DAILY #30 tab 07/26/18 ciprofloxacin HCl [Cipro] 250 mg PO BID #10 tab 08/06/18 Allergies Allergy/AdvReac Type Severity Reaction Status Date / Time erythromycin base Allergy Diarrhea Verified 08/13/18 09:40 Review of Systems ROS Unobtainable ROS Unobtainable: unobtainable due to mental status PMFSH History History Provided By: Medical Record and Program Services Planner / EMT Medical History Medical History Atrial fibrillation (Acute) CKD (chronic kidney disease) stage 3, GFR 30-59 ml/min (Acute) GERD (gastroesophageal reflux disease) (Acute) HLD (hyperlipidemia) (Acute) HTN (hypertension) (Acute) Obesity, morbid, BMI 40.0-49.9 (Acute) Urinary tract obstruction by kidney stone (Acute) Surgical History Surgical History History of lithotripsy (Acute) History of ureter stent (Acute) Hx of cystoscopy (Acute) Family History Family History Other No significant family history Social History Social History Substance History: No History of Abuse Second Hand Smoke Exposure: No Smoking Status: Never smoker How Often Do You Have a Drink Containing Alcohol: Never Recent Travel in [facility] within the Last 8 Weeks: No Recent Out of Country Travel within the Last 8 Weeks: No Exam Narrative Exam Narrative: GENERAL: Obese, lethargic, ill-appearing female. SKIN: Focused skin assessment warm/dry. Pale. HEAD: Atraumatic. Normocephalic. EYES: Pupils equal and round. No scleral icterus. No injection or drainage. Significant conjunctival pallor ENT: No nasal bleeding or discharge. Mucous membranes pink and moist. NECK: Trachea midline. No JVD. CARDIOVASCULAR: Irregularly irregular. 2/6 systolic murmur appreciated. RESPIRATORY: Tachypneic, diaphragmatic breathing. Diminished lung sounds in bases. GASTROINTESTINAL: Abdomen soft, non-tender, nondistended. Hepatic and splenic margins not palpable. Positive bowel sounds, no rebound, no guarding. MUSCULOSKELETAL: No obvious deformities. No clubbing. No cyanosis. No edema. NEUROLOGICAL: Drowsy but arousable. No obvious cranial nerve deficits. Motor grossly within normal limits. Procedures Central Line Placement Right Femoral: Time Out Performed: Yes Patient Placed on Monitor/Pulse Ox: Yes Central Line Prep: Chlorhexidine scrub and sterile drapes applied Local anesthesia used: lidocaine 1% Amount of anesthesia used (mL): 2 Central Line Lumen Inserted: triple Post Procedure: sutured in place, good blood return, all ports aspirated, flushed, capped and sterile dressing applied Patient Tolerated Procedure: well and no complications Complications: none Intubation Time Out Performed: Yes Sedative: etomidate Mg Given: 20 Laryngoscope: Luis Alberto ET Tube Size: 8 ET Tube Uncuffed: Yes Tube Secured Depth (cm): 24 Tube Secured Location: teeth Tube Placement Confirmation: visualized tube passing through cords, equal breath sounds bilaterally, no breath sounds over epigastrium and confirmation by capnometry Patient Tolerated Procedure: well Intubation Complications: none Course Consultations Consultation #1: Discussed with and accepted by workers' compensation hearings officer Dr. Merino; request Kcentra per Initial Documented Vital Signs Temperature 92.5 F L 08/27/18 19:40 Pulse Rate 55 L 08/27/18 19:40 Respiratory Rate 20 08/27/18 19:40 Blood Pressure 100/60 08/27/18 19:40 Pulse Oximetry 95 08/27/18 19:40 Last Documented Vital Signs Temperature 94.3 F L 08/28/18 02:31 Pulse Rate 110 H 08/28/18 02:31 Respiratory Rate 14 08/28/18 03:59 Blood Pressure 109/51 L 08/28/18 02:31 Pulse Oximetry 98 08/28/18 03:59 Critical Care Time Critical Care Time: Yes Total Critical Care Time: 40 Attestation: Aggregate critical care time was 40 minutes. Time to perform other separately billable procedures was not included in the critical care time. My time did not include minutes spent treating any other patients simultaneously or on activities that did not directly contribute to the patient's treatment. The services I provided to this patient were to treat and/or prevent clinically significant deterioration that could result in: Hemorrhagic shock arrhythmia respiratory arrest I provided critical care services requiring my management, as noted below: Chart data review, documentation time, medication orders and management, vital sign assessments/reviewing monitor data, ordering and reviewing lab tests, ordering and interpreting/reviewing x-rays and diagnostic studies, care of the patient and discussion of the patient with the admitting physicians. Medical Decision Making LINDSEY Attestation LINDSEY supervised visit: Yes Attestation: I, Dr. Cunningham, have reviewed the advance practice practitioner's documentation and am in agreement, met with the patient face to face, made the diagnosis, and the medical decision making was done by me. *My assessment and Findings: 73-year-old female presents to the emergency department from assisted with decreased level of consciousness hypotensive with hypothermia and pallor after report of nausea vomiting and diarrhea times 3 days; no report of GI bleed. Patient is on Eliquis. Patient with history of atrial fibrillation. No history of fever. Patient on Cipro. Patient initiated on septic protocol and GI bleed protocol per PLASTER APPLICATOR I concur with this plan. MDM Narrative Medical decision making narrative: 73-year-old female presents to the emergency department from assisted by EMS report for evaluation of altered mental status pallor hypotension with normal range glucose EMS inability to obtain IV access no medications administered in route presents with no blood pressure reported and unable to obtain blood pressure by manual cuff with palpable weak pulse in acute distress and acutely ill. Peripheral IV access unable unable to be obtained emergently central line placed in the right femoral vein with ultrasound guidance and patient emergently transfused 2 units of emergency release blood as well as 2 L of normal saline with additional liter added treated presumptively with IV antibiotics VBG hemoglobin 5. Counter Hand notified and accepts patient requesting Kcentra to be administered. Patient placed on dopamine infusion as still remains hypotensive with inability to obtain blood pressure except bimanual cuff. Patient also required emergent intubation as progressive decrease in ventilatory effort and level of consciousness. At 10:30 PM patient is awake on vent support receiving dopamine pressure support has received 3 L of normal saline 2 units of emergency release blood third unit of emergency release blood is infusing an additional fourth liter of normal saline ordered as patient still has had no urine output. NG tube shows insignificant output scant coffee grounds and no further melena. Blood pressure 80 systolic. Heart rate 85 EKG atrial fibrillation with no acute ST elevation or injury pattern change chest x-ray identified endotracheal tube to be above the fred but recommendation to withdraw 1 cm which has been performed. Unable to obtain ABG. Patient is presenting with septic shock and hypovolemic GI bleed hemorrhagic shock shock with acute renal failure respiratory failure and hypoperfusion metabolic acidosis/lactic acidosis. Patient has central line as well as undergone intubation. Patient has been accepted to the ICU by Dr. Merino. Medical Screen Exam Complete: Yes Emergency Medical Condition: Yes Differential Diagnosis Differential Diagnosis: sepsis vs gi bleed vs metabolic abnormality vs other Medical Records Medical records reviewed: Yes I reviewed the patient's medical records. Lab Data Lab results reviewed: Yes I reviewed the patient's lab results. Result diagrams: 08/27/18 20:40 08/27/18 20:40 Lab Results 08/27/18 08/27/18 08/27/18 Range/Units 20:37 20:40 20:40 WBC (4.0-11.0) th/mm3 RBC (4.00-5.30) mil/mm3 Hgb (11.6-15.3) gm/dL POC Hgb (Calc) Hct (35.0-46.0) % POC Hct MCV (80.0-100.0) fL MCH (27.0-34.0) pg MCHC (32.0-36.0) % RDW (11.6-17.2) % Plt Count (150-450) th/mm3 MPV (7.0-11.0) fL Prelim Diff (Auto) Neut % (Auto) (16.0-70.0) % Lymph % (Auto) (9.0-44.0) % [place] % (Auto) (0.0-8.0) % Eos % (Auto) (0.0-4.0) % Baso % (Auto) (0.0-2.0) % Neut # (Auto) (1.8-7.7) th/mm3 Lymph # (Auto) (1.0-4.8) th/mm3 [place] # (Auto) (0.0-0.9) th/mm3 Eos # (Auto) (0.0-0.4) th/mm3 Baso # (Auto) (0.0-0.2) th/mm3 WBC Differential Seg Neuts % (Manual) (16-70) % Band Neuts % (Manual) (0-6) % Lymphocytes % (Manual) (9-44) % Abs Neuts (Manual) (1.8-7.7) th/mm3 Differential Comment Platelet Estimate (Normal) Platelet Morphology (Normal) PT 23.8 H (9.8-11.6) sec INR 2.4 Ratio APTT (23.4-31.7) sec Puncture Site Patient Temperature O2 Saturation (90-100) % ABG pH (7.380-7.420) ABG pCO2 (38-42) mmHg ABG pO2 (61-120) mmHg ABG HCO3 (22-26) mmol/L ABG O2 Content (12.0-20.0) Vol % ABG Base Excess (-2-2) mmol/L ABG Methemoglobin (0-2) % Ag Test VBG pH (7.360-7.400) VBG pCO2 (44-48) mmHG VBG pO2 (35-40) mmHG VBG HCO3 (22-26) mmol/L VBG O2 Saturation (70-76) % VBG O2 Content (9.0-17.0) Vol % VBG Base Excess (-2-2) mmol/L VBG Carboxyhemoglobin (0-4) % VBG Methemoglobin (0-2) % Hemoglobin (12.0-16.0) G/DL Carboxyhemoglobin (0-4) % O2 Delivery Device Vent Setting Inspired O2 % Critical Value POC Sodium Sodium (136-145) meq/L POC Potassium Potassium (3.5-5.1) meq/L POC Chloride Chloride (98-107) meq/L Carbon Dioxide (21.0-32.0) meq/L Anion Gap (5-15) meq/L POC BUN BUN (7-18) mg/dL Creatinine (0.50-1.00) mg/dL POC Creatinine Estimated GFR (>89) mL/min POC Glucose Random Glucose (74-106) mg/dL Lactic Acid (0.4-2.0) mmol/L Calcium (8.5-10.1) mg/dL Prot Corrected Calcium (8.5-10.1) mg/dL Magnesium (1.5-2.5) mg/dL Total Bilirubin (0.2-1.0) mg/dL AST (15-37) U/L ALT (10-53) U/L Alkaline Phosphatase (45-117) U/L B-Natriuretic Peptide 110 H (0-100) pg/mL Total Protein (6.4-8.2) g/dL Albumin (3.4-5.0) g/dL Nasal Screen MRSA (PCR) (Negative) Stl C.difficile DNA Amp (Negative) St C. diff Tox Epid 027 (Negative) Blood Type Blood Type Recheck Antibody Screen MTS Gel Crossmatch See Detail Blood Bank Comment 08/27/18 08/27/18 08/27/18 Range/Units 20:40 20:40 20:40 WBC 11.1 H (4.0-11.0) th/mm3 RBC 2.11 L (4.00-5.30) mil/mm3 Hgb 6.5 L* (11.6-15.3) gm/dL POC Hgb (Calc) Hct 20.4 L* (35.0-46.0) % POC Hct MCV 96.3 (80.0-100.0) fL MCH 30.6 (27.0-34.0) pg MCHC 31.7 L (32.0-36.0) % RDW 16.8 (11.6-17.2) % Plt Count 418 D (150-450) th/mm3 MPV 8.4 (7.0-11.0) fL Prelim Diff (Auto) Slide review pending Neut % (Auto) 81.1 H (16.0-70.0) % Lymph % (Auto) 17.0 (9.0-44.0) % [place] % (Auto) 1.8 (0.0-8.0) % Eos % (Auto) 0.1 (0.0-4.0) % Baso % (Auto) 0.0 (0.0-2.0) % Neut # (Auto) 9.0 H (1.8-7.7) th/mm3 Lymph # (Auto) 1.9 (1.0-4.8) th/mm3 [place] # (Auto) 0.2 (0.0-0.9) th/mm3 Eos # (Auto) 0.0 (0.0-0.4) th/mm3 Baso # (Auto) 0.0 (0.0-0.2) th/mm3 WBC Differential Manual diff final Seg Neuts % (Manual) 70 (16-70) % Band Neuts % (Manual) 26 H (0-6) % Lymphocytes % (Manual) 4 L (9-44) % Abs Neuts (Manual) 10.7 H (1.8-7.7) th/mm3 Differential Comment . Platelet Estimate High H (Normal) Platelet Morphology Enlarged H (Normal) PT (9.8-11.6) sec INR Ratio APTT (23.4-31.7) sec Puncture Site Patient Temperature O2 Saturation (90-100) % ABG pH (7.380-7.420) ABG pCO2 (38-42) mmHg ABG pO2 (61-120) mmHg ABG HCO3 (22-26) mmol/L ABG O2 Content (12.0-20.0) Vol % ABG Base Excess (-2-2) mmol/L ABG Methemoglobin (0-2) % Ag Test VBG pH (7.360-7.400) VBG pCO2 (44-48) mmHG VBG pO2 (35-40) mmHG VBG HCO3 (22-26) mmol/L VBG O2 Saturation (70-76) % VBG O2 Content (9.0-17.0) Vol % VBG Base Excess (-2-2) mmol/L VBG Carboxyhemoglobin (0-4) % VBG Methemoglobin (0-2) % Hemoglobin (12.0-16.0) G/DL Carboxyhemoglobin (0-4) % O2 Delivery Device Vent Setting Inspired O2 % Critical Value POC Sodium Sodium 137 (136-145) meq/L POC Potassium Potassium 5.1 (3.5-5.1) meq/L POC Chloride Chloride 108 H (98-107) meq/L Carbon Dioxide 10.4 L (21.0-32.0) meq/L Anion Gap 19 H (5-15) meq/L POC BUN BUN 72 H (7-18) mg/dL Creatinine 3.59 H (0.50-1.00) mg/dL POC Creatinine Estimated GFR 13 L (>89) mL/min POC Glucose Random Glucose 114 H (74-106) mg/dL Lactic Acid 5.7 H* (0.4-2.0) mmol/L Calcium 6.2 L* (8.5-10.1) mg/dL Prot Corrected Calcium 8.5 (8.5-10.1) mg/dL Magnesium 1.6 (1.5-2.5) mg/dL Total Bilirubin 0.2 (0.2-1.0) mg/dL AST 29 (15-37) U/L ALT 23 (10-53) U/L Alkaline Phosphatase 98 (45-117) U/L B-Natriuretic Peptide (0-100) pg/mL Total Protein 2.9 L (6.4-8.2) g/dL Albumin 0.6 L (3.4-5.0) g/dL Nasal Screen MRSA (PCR) (Negative) Stl C.difficile DNA Amp (Negative) St C. diff Tox Epid 027 (Negative) Blood Type Blood Type Recheck Antibody Screen MTS Gel Crossmatch Blood Bank Comment 08/27/18 08/27/18 08/27/18 Range/Units 20:40 20:40 20:40 WBC (4.0-11.0) th/mm3 RBC (4.00-5.30) mil/mm3 Hgb (11.6-15.3) gm/dL POC Hgb (Calc) Cancelled Hct (35.0-46.0) % POC Hct Cancelled MCV (80.0-100.0) fL MCH (27.0-34.0) pg MCHC (32.0-36.0) % RDW (11.6-17.2) % Plt Count (150-450) th/mm3 MPV (7.0-11.0) fL Prelim Diff (Auto) Neut % (Auto) (16.0-70.0) % Lymph % (Auto) (9.0-44.0) % [place] % (Auto) (0.0-8.0) % Eos % (Auto) (0.0-4.0) % Baso % (Auto) (0.0-2.0) % Neut # (Auto) (1.8-7.7) th/mm3 Lymph # (Auto) (1.0-4.8) th/mm3 [place] # (Auto) (0.0-0.9) th/mm3 Eos # (Auto) (0.0-0.4) th/mm3 Baso # (Auto) (0.0-0.2) th/mm3 WBC Differential Seg Neuts % (Manual) (16-70) % Band Neuts % (Manual) (0-6) % Lymphocytes % (Manual) (9-44) % Abs Neuts (Manual) (1.8-7.7) th/mm3 Differential Comment Platelet Estimate (Normal) Platelet Morphology (Normal) PT (9.8-11.6) sec INR Ratio APTT (23.4-31.7) sec Puncture Site Right femoral Patient Temperature 98.6 O2 Saturation (90-100) % ABG pH (7.380-7.420) ABG pCO2 (38-42) mmHg ABG pO2 (61-120) mmHg ABG HCO3 (22-26) mmol/L ABG O2 Content (12.0-20.0) Vol % ABG Base Excess (-2-2) mmol/L ABG Methemoglobin (0-2) % Ag Test VBG pH 7.18 L* (7.360-7.400) VBG pCO2 29 L (44-48) mmHG VBG pO2 41 H (35-40) mmHG VBG HCO3 10 L* (22-26) mmol/L VBG O2 Saturation 53 L (70-76) % VBG O2 Content 3.7 L (9.0-17.0) Vol % VBG Base Excess -16.6 L (-2-2) mmol/L VBG Carboxyhemoglobin 1.1 (0-4) % VBG Methemoglobin 0.3 (0-2) % Hemoglobin 4.9 L* (12.0-16.0) G/DL Carboxyhemoglobin (0-4) % O2 Delivery Device Ventilator Vent Setting Inspired O2 100 % Critical Value Yes POC Sodium Cancelled Sodium (136-145) meq/L POC Potassium Cancelled Potassium (3.5-5.1) meq/L POC Chloride Cancelled Chloride (98-107) meq/L Carbon Dioxide (21.0-32.0) meq/L Anion Gap (5-15) meq/L POC BUN Cancelled BUN (7-18) mg/dL Creatinine (0.50-1.00) mg/dL POC Creatinine Cancelled Estimated GFR (>89) mL/min POC Glucose Cancelled Random Glucose (74-106) mg/dL Lactic Acid (0.4-2.0) mmol/L Calcium (8.5-10.1) mg/dL Prot Corrected Calcium (8.5-10.1) mg/dL Magnesium (1.5-2.5) mg/dL Total Bilirubin (0.2-1.0) mg/dL AST (15-37) U/L ALT (10-53) U/L Alkaline Phosphatase (45-117) U/L B-Natriuretic Peptide (0-100) pg/mL Total Protein (6.4-8.2) g/dL Albumin (3.4-5.0) g/dL Nasal Screen MRSA (PCR) (Negative) Stl C.difficile DNA Amp (Negative) St C. diff Tox Epid 027 (Negative) Blood Type A Negative Blood Type Recheck Not needed Antibody Screen Negative MTS Gel Crossmatch Blood Bank Comment 08/27/18 08/27/18 08/27/18 Range/Units 20:40 20:40 21:03 WBC (4.0-11.0) th/mm3 RBC (4.00-5.30) mil/mm3 Hgb (11.6-15.3) gm/dL POC Hgb (Calc) Hct (35.0-46.0) % POC Hct MCV (80.0-100.0) fL MCH (27.0-34.0) pg MCHC (32.0-36.0) % RDW (11.6-17.2) % Plt Count (150-450) th/mm3 MPV (7.0-11.0) fL Prelim Diff (Auto) Neut % (Auto) (16.0-70.0) % Lymph % (Auto) (9.0-44.0) % [place] % (Auto) (0.0-8.0) % Eos % (Auto) (0.0-4.0) % Baso % (Auto) (0.0-2.0) % Neut # (Auto) (1.8-7.7) th/mm3 Lymph # (Auto) (1.0-4.8) th/mm3 [place] # (Auto) (0.0-0.9) th/mm3 Eos # (Auto) (0.0-0.4) th/mm3 Baso # (Auto) (0.0-0.2) th/mm3 WBC Differential Seg Neuts % (Manual) (16-70) % Band Neuts % (Manual) (0-6) % Lymphocytes % (Manual) (9-44) % Abs Neuts (Manual) (1.8-7.7) th/mm3 Differential Comment Platelet Estimate (Normal) Platelet Morphology (Normal) PT (9.8-11.6) sec INR Ratio APTT 91.2 H* (23.4-31.7) sec Puncture Site Patient Temperature O2 Saturation (90-100) % ABG pH (7.380-7.420) ABG pCO2 (38-42) mmHg ABG pO2 (61-120) mmHg ABG HCO3 (22-26) mmol/L ABG O2 Content (12.0-20.0) Vol % ABG Base Excess (-2-2) mmol/L ABG Methemoglobin (0-2) % Ag Test VBG pH (7.360-7.400) VBG pCO2 (44-48) mmHG VBG pO2 (35-40) mmHG VBG HCO3 (22-26) mmol/L VBG O2 Saturation (70-76) % VBG O2 Content (9.0-17.0) Vol % VBG Base Excess (-2-2) mmol/L VBG Carboxyhemoglobin (0-4) % VBG Methemoglobin (0-2) % Hemoglobin (12.0-16.0) G/DL Carboxyhemoglobin (0-4) % O2 Delivery Device Vent Setting Inspired O2 % Critical Value POC Sodium Sodium 134 L (136-145) meq/L POC Potassium Potassium 5.3 H (3.5-5.1) meq/L POC Chloride Chloride 104 (98-107) meq/L Carbon Dioxide 11.6 L (21.0-32.0) meq/L Anion Gap 18 H (5-15) meq/L POC BUN BUN 71 H (7-18) mg/dL Creatinine 4.01 H (0.50-1.00) mg/dL POC Creatinine Estimated GFR 11 L (>89) mL/min POC Glucose Random Glucose 112 H (74-106) mg/dL Lactic Acid (0.4-2.0) mmol/L Calcium 7.2 L* D (8.5-10.1) mg/dL Prot Corrected Calcium 8.9 (8.5-10.1) mg/dL Magnesium (1.5-2.5) mg/dL Total Bilirubin (0.2-1.0) mg/dL AST (15-37) U/L ALT (10-53) U/L Alkaline Phosphatase (45-117) U/L B-Natriuretic Peptide (0-100) pg/mL Total Protein 4.2 L D (6.4-8.2) g/dL Albumin (3.4-5.0) g/dL Nasal Screen MRSA (PCR) (Negative) Stl C.difficile DNA Amp (Negative) St C. diff Tox Epid 027 (Negative) Blood Type Blood Type Recheck Antibody Screen MTS Gel Crossmatch See Detail Blood Bank Comment 08/27/18 08/27/18 08/27/18 Range/Units 21:51 23:45 23:45 WBC (4.0-11.0) th/mm3 RBC (4.00-5.30) mil/mm3 Hgb (11.6-15.3) gm/dL POC Hgb (Calc) Hct (35.0-46.0) % POC Hct MCV (80.0-100.0) fL MCH (27.0-34.0) pg MCHC (32.0-36.0) % RDW (11.6-17.2) % Plt Count (150-450) th/mm3 MPV (7.0-11.0) fL Prelim Diff (Auto) Neut % (Auto) (16.0-70.0) % Lymph % (Auto) (9.0-44.0) % [place] % (Auto) (0.0-8.0) % Eos % (Auto) (0.0-4.0) % Baso % (Auto) (0.0-2.0) % Neut # (Auto) (1.8-7.7) th/mm3 Lymph # (Auto) (1.0-4.8) th/mm3 [place] # (Auto) (0.0-0.9) th/mm3 Eos # (Auto) (0.0-0.4) th/mm3 Baso # (Auto) (0.0-0.2) th/mm3 WBC Differential Seg Neuts % (Manual) (16-70) % Band Neuts % (Manual) (0-6) % Lymphocytes % (Manual) (9-44) % Abs Neuts (Manual) (1.8-7.7) th/mm3 Differential Comment Platelet Estimate (Normal) Platelet Morphology (Normal) PT (9.8-11.6) sec INR Ratio APTT (23.4-31.7) sec Puncture Site Patient Temperature O2 Saturation (90-100) % ABG pH (7.380-7.420) ABG pCO2 (38-42) mmHg ABG pO2 (61-120) mmHg ABG HCO3 (22-26) mmol/L ABG O2 Content (12.0-20.0) Vol % ABG Base Excess (-2-2) mmol/L ABG Methemoglobin (0-2) % Ag Test VBG pH (7.360-7.400) VBG pCO2 (44-48) mmHG VBG pO2 (35-40) mmHG VBG HCO3 (22-26) mmol/L VBG O2 Saturation (70-76) % VBG O2 Content (9.0-17.0) Vol % VBG Base Excess (-2-2) mmol/L VBG Carboxyhemoglobin (0-4) % VBG Methemoglobin (0-2) % Hemoglobin (12.0-16.0) G/DL Carboxyhemoglobin (0-4) % O2 Delivery Device Vent Setting Inspired O2 % Critical Value POC Sodium Sodium (136-145) meq/L POC Potassium Potassium (3.5-5.1) meq/L POC Chloride Chloride (98-107) meq/L Carbon Dioxide (21.0-32.0) meq/L Anion Gap (5-15) meq/L POC BUN BUN (7-18) mg/dL Creatinine (0.50-1.00) mg/dL POC Creatinine Estimated GFR (>89) mL/min POC Glucose Random Glucose (74-106) mg/dL Lactic Acid (0.4-2.0) mmol/L Calcium (8.5-10.1) mg/dL Prot Corrected Calcium (8.5-10.1) mg/dL Magnesium (1.5-2.5) mg/dL Total Bilirubin (0.2-1.0) mg/dL AST (15-37) U/L ALT (10-53) U/L Alkaline Phosphatase (45-117) U/L B-Natriuretic Peptide (0-100) pg/mL Total Protein (6.4-8.2) g/dL Albumin (3.4-5.0) g/dL Nasal Screen MRSA (PCR) Mrsa detected (Negative) Stl C.difficile DNA Amp Negative (Negative) St C. diff Tox Epid 027 Negative (Negative) Blood Type Blood Type Recheck Antibody Screen MTS Gel Crossmatch Blood Bank Comment 08/28/18 08/28/18 08/28/18 Range/Units 00:00 00:15 04:52 WBC (4.0-11.0) th/mm3 RBC (4.00-5.30) mil/mm3 Hgb (11.6-15.3) gm/dL POC Hgb (Calc) Hct (35.0-46.0) % POC Hct MCV (80.0-100.0) fL MCH (27.0-34.0) pg MCHC (32.0-36.0) % RDW (11.6-17.2) % Plt Count (150-450) th/mm3 MPV (7.0-11.0) fL Prelim Diff (Auto) Neut % (Auto) (16.0-70.0) % Lymph % (Auto) (9.0-44.0) % [place] % (Auto) (0.0-8.0) % Eos % (Auto) (0.0-4.0) % Baso % (Auto) (0.0-2.0) % Neut # (Auto) (1.8-7.7) th/mm3 Lymph # (Auto) (1.0-4.8) th/mm3 [place] # (Auto) (0.0-0.9) th/mm3 Eos # (Auto) (0.0-0.4) th/mm3 Baso # (Auto) (0.0-0.2) th/mm3 WBC Differential Seg Neuts % (Manual) (16-70) % Band Neuts % (Manual) (0-6) % Lymphocytes % (Manual) (9-44) % Abs Neuts (Manual) (1.8-7.7) th/mm3 Differential Comment Platelet Estimate (Normal) Platelet Morphology (Normal) PT (9.8-11.6) sec INR Ratio APTT (23.4-31.7) sec Puncture Site Lt arm Left radial Patient Temperature 98.6 98.6 O2 Saturation 98 (90-100) % ABG pH 7.42 (7.380-7.420) ABG pCO2 21 L* (38-42) mmHg ABG pO2 190 H (61-120) mmHg ABG HCO3 13 L* (22-26) mmol/L ABG O2 Content 16.1 (12.0-20.0) Vol % ABG Base Excess -10.3 L (-2-2) mmol/L ABG Methemoglobin 1.1 (0-2) % Ag Test Present VBG pH 7.17 L* (7.360-7.400) VBG pCO2 31 L (44-48) mmHG VBG pO2 24 L* (35-40) mmHG VBG HCO3 11 L* (22-26) mmol/L VBG O2 Saturation 30 L (70-76) % VBG O2 Content 4.5 L (9.0-17.0) Vol % VBG Base Excess -16.3 L (-2-2) mmol/L VBG Carboxyhemoglobin 0.4 (0-4) % VBG Methemoglobin 1.1 (0-2) % Hemoglobin 10.6 L 11.5 L (12.0-16.0) G/DL Carboxyhemoglobin 0.9 (0-4) % O2 Delivery Device Ventilator Ventilator Vent Setting Prvc/ac Prvc/ac Inspired O2 100 90 % Critical Value Yes Yes POC Sodium Sodium (136-145) meq/L POC Potassium Potassium (3.5-5.1) meq/L POC Chloride Chloride (98-107) meq/L Carbon Dioxide (21.0-32.0) meq/L Anion Gap (5-15) meq/L POC BUN BUN (7-18) mg/dL Creatinine (0.50-1.00) mg/dL POC Creatinine Estimated GFR (>89) mL/min POC Glucose Random Glucose (74-106) mg/dL Lactic Acid 4.8 H* (0.4-2.0) mmol/L Calcium (8.5-10.1) mg/dL Prot Corrected Calcium (8.5-10.1) mg/dL Magnesium (1.5-2.5) mg/dL Total Bilirubin (0.2-1.0) mg/dL AST (15-37) U/L ALT (10-53) U/L Alkaline Phosphatase (45-117) U/L B-Natriuretic Peptide (0-100) pg/mL Total Protein (6.4-8.2) g/dL Albumin (3.4-5.0) g/dL Nasal Screen MRSA (PCR) (Negative) Stl C.difficile DNA Amp (Negative) St C. diff Tox Epid 027 (Negative) Blood Type Blood Type Recheck Antibody Screen MTS Gel Crossmatch Blood Bank Comment Imaging Data Radiologist's impression: Chest X-Ray 08/27/18 21:01 CONCLUSION: 1. ET tube tip is within 2 cm of the fred and needs to be withdrawn 1 cm. 2. Patchy infiltrates in the left lower lung. ECG Data Attestation: I personally reviewed and interpreted this ECG as follows: (Atrial fibrillation rate [address] elevation injury pattern or ectopy noted) Discharge Plan Discharge Disposition Patient Disposition: 30 Still Patient Discharge Condition Condition: Critical Discharge Details Diagnosis: Hypotension due to blood loss, Atrial fibrillation, Acute blood loss anemia, Metabolic acidosis, Chronic anticoagulation Physicians Team ED Provider: Gely Cunningham ED Midlevel Provider: Chantal Jones Primary Care Provider: Do Sarah Barreto Attending Provider: Stew Merino Other Providers: Oanh Felipe Status ED Status: Left Department Discharge Information Discharge Date/Time: 08/27/18 23:19
[2018-08-27] MEDS ORDERED: DOPamine 400 MG/250 ML Premix 400 MG/250 ML BAG IV.CONT ONE (20:27)
[2018-08-27] MEDS ORDERED: Prothrombin Complex Conc Inj 2,500 UNIT in Syringe/Bag 1 EACH IV.SIG ONE (20:44)
[2018-08-27] MEDS ORDERED: Sodium Bicarbonate 8.4% Inj 50 MEQ/50 ML Syringe IV.PUSH ONE (20:52)
[2018-08-27] MEDS ORDERED: Pantoprazole Inj 80 MG in Sodium Chlor 0.9% Inj 35 ML IV.SIG ONE (21:01)
[2018-08-27] MEDS ORDERED: Piperacil/Tazo 4.5 GM Premix 4.5 GM/100 ML BAG IV.SIG ONE (21:04)
[2018-08-27] MEDS ORDERED: Vancomycin Inj 1,000 MG in Sodium Chlor 0.9% Inj 250 ML IV.SIG ONE (21:04)
[2018-08-27 21:07] LABS: Eos % (Auto) 0.1 % (0.0-4.0); Lymph # (Auto) 1.9 th/mm3 (1.0-4.8); Mean Corpuscular HGB Conc 31.7 % (32.0-36.0); Mean Corpuscular Hemoglobin 30.6 pg (27.0-34.0); Mean Corpuscular Volume 96.3 fL (80.0-100.0); Mean Platelet Volume 8.4 fL (7.0-11.0); Mono # (Auto) 0.2 th/mm3 (0.0-0.9); Mono % (Auto) 1.8 % (0.0-8.0); Neut % (Auto) 81.1 % (16.0-70.0); Platelet Count 418 th/mm3 (150-450); Red Blood Count 2.11 mil/mm3 (4.00-5.30); Red Cell Distribution Width 16.8 % (11.6-17.2); White Blood Count 11.1 th/mm3 (4.0-11.0)
[2018-08-27] MEDS: DOPamine 800 MG/500 ML Premix 800 MG/500 ML PLAST..BAG IV.CONT PRN (21:09)
[2018-08-27 21:15] LABS: Hemoglobin 6.5 gm/dL (11.6-15.3)
[2018-08-27 21:16] LABS: Hematocrit 20.4 % (35.0-46.0)
[2018-08-27 21:20] LABS: INR 2.4 Ratio; Prothrombin Time 23.8 sec (9.8-11.6)
--- NOTE | 2018-08-27 21:23 | XR ---
EXAM DATE: 08/27/2018 9:19 PM EST AGE/SEX: 73 years / Female INDICATIONS: Post ET tube placement. CLINICAL DATA: This is the patient's initial encounter. Patient reports that signs and symptoms have been present for 1 day and indicates a pain score of Nonresponsive. MEDICAL/SURGICAL HISTORY: Non-responsive. Non-responsive. COMPARISON: [facility] [place] [facility] [place] 1[place] S[place] AP, 07/19/2018. . FINDINGS: ET tube tip is 1.6 cm above the fred. Gastric tube tip and side-port project within the stomach. Th e right lung is clear. There is persistent patchy nonconsolidative infiltrates in the left lower lung with loss of delineation of the zenith of the left hemidiaphragm. CONCLUSION: 1. ET tube tip is within 2 cm of the fred and needs to be withdrawn 1 cm. 2. Patchy infiltrates in the left lower lung. Electronically signed by: Raif Rebollar MD 08/27/2018 9:22 PM EST
[2018-08-27 21:34] LABS: Lymphocytes 4 % (9-44)
[2018-08-27 21:39] LABS: Albumin 0.6 g/dL (3.4-5.0); Calcium 6.2 mg/dL (8.5-10.1); Carbon Dioxide 10.4 meq/L (21.0-32.0); Magnesium 1.6 mg/dL (1.5-2.5); Potassium 5.1 meq/L (3.5-5.1); Total Protein 2.9 g/dL (6.4-8.2)
--- NOTE | 2018-08-27 21:51 | P.HPCC ---
History of Present Illness Primary Care Physician: Do Sarah Barreto History of Present Illness: 73-year-old female presents for an evaluation of altered mental status. Patient has been this way for approximately 3 days. Per EMS report patient has been lethargic but arouses easily. half-way reported to EMS patient has had nausea, vomiting, diarrhea times 3 days. Patient has a history of GI bleed x2 in the past. Past medical history significant for GERD, GI bleed, hypertension, hyperlipidemia, chronic kidney disease, A. fib, CHF. Patient is on Eliquis. The patient was intubated by ED attending for an airway protection in the emergency department, as well as the right femoral central line catheter was placed. Inpatient Certification: I certify that the inpatient services were ordered in accordance with Medicare regulations governing the order. This includes certification that hospital inpatient services are reasonable and necessary and in the case of services not specified as inpatient-only under 42 CFR 419.22(n), that they are appropriately provided as inpatient services in accordance to with the 2-midnight benchmark under 43 CFR 412.3(e) Review of Systems unobtainable due to endotracheal tube PMFSH - History History Provided By: Medical Record, Employee Health Nurse / EMT - Medical History Medical History: Medical History (Last Reviewed 08/27/18 @ 20:32 by Rasheeda Cruz) Atrial fibrillation CKD (chronic kidney disease) stage 3, GFR 30-59 ml/min GERD (gastroesophageal reflux disease) HLD (hyperlipidemia) HTN (hypertension) Obesity, morbid, BMI 40.0-49.9 Urinary tract obstruction by kidney stone - Surgical History Surgical History: Surgical History (Last Reviewed 08/27/18 @ 20:32 by Rasheeda Cruz) History of lithotripsy History of ureter stent Hx of cystoscopy - Family History Family History: Family History (Last Reviewed 08/27/18 @ 20:16 by TOO Carlisle) Other No significant family history - Tobacco History Second Hand Smoke Exposure: No Smoking Status: Never smoker - Alcohol History How Often Do You Have a Drink Containing Alcohol: Never - Substance Use History Substance History: No History of Abuse - Travel History Recent Travel in the [place] Within the Last 8 Weeks: No Recent Travel Out of the Country Within the Last 8 Weeks: No - Immunization History Tetanus Immunization: Unsure Medications and Allergies Active Medications: Active Medications Pantoprazole Sodium 80 mg/ (Sodium Chloride) 100 mls @ 10 mls/hr IV.CONT CONT IRVING Last Admin: 08/27/18 21:42 Dose: 10 mls/hr Dopamine HCl/Dextrose (Dopamine 800 Mg/500 Ml Premix) 800 mg in 500 mls @ 16.875 mls/hr IV.CONT TITRATE PRN; Protocol PRN Reason: Per Protocol Last Titration: 08/27/18 21:47 Dose: 15 mcg/kg/min, 84.38 mls/hr Pantoprazole Sodium 80 mg/ (Sodium Chloride) 100 mls @ 10 mls/hr IV.CONT CONT IRVING Vancomycin HCl 1,000 mg/ (Sodium Chloride) 250 mls @ 250 mls/hr IV.SIG ONCE ONE Stop: 08/27/18 22:03 Terbutaline Sulfate (Brethine Inj) 1 mg SQ ONCE PRN PRN Reason: Extravasation Allergies Allergy/AdvReac Type Severity Reaction Status Date / Time erythromycin base Allergy Diarrhea Verified 08/13/18 09:40 Home Medications Medication Instructions Recorded Confirmed Type cholecalciferol (vitamin D3) 2,000 unit PO DAILY 06/15/18 08/27/18 History [Vitamin D3] vit C,D-Yk-pwgrr-lutein-zeaxan 1 tab PO BID 06/15/18 08/27/18 History [PreserVision AREDS-2] zinc sulfate 220 mg PO DAILY 08/05/18 08/27/18 History Results - Labs CBC & Chem 7: 08/28/18 05:10 08/27/18 20:40 Labs: Short CBC 08/27/18 Range/Units 20:40 WBC 11.1 H (4.0-11.0) th/mm3 Hgb 6.5 L* (11.6-15.3) gm/dL Hct 20.4 L* (35.0-46.0) % Plt Count 418 D (150-450) th/mm3 BMP 08/27/18 20:40 Sodium 137 Potassium 5.1 Chloride 108 H Carbon Dioxide 10.4 L BUN 72 H Creatinine 3.59 H Calcium 6.2 L* Liver Function 08/27/18 Range/Units 20:40 Total Bilirubin 0.2 (0.2-1.0) mg/dL AST 29 (15-37) U/L ALT 23 (10-53) U/L Alkaline Phosphatase 98 (45-117) U/L Albumin 0.6 L (3.4-5.0) g/dL - Imaging Impressions Chest X-Ray 08/27/18 21:01 CONCLUSION: 1. ET tube tip is within 2 cm of the fred and needs to be withdrawn 1 cm. 2. Patchy infiltrates in the left lower lung. Exam Vital signs: Vital Signs 08/27/18 19:40 08/27/18 19:55 08/27/18 21:12 Temperature 92.5 F L 92.5 F L Pulse Rate 55 L 55 L 78 Respiratory Rate 20 20 18 Blood Pressure 100/60 88/44 L 118/85 Pulse Oximetry 95 96 94 L Intake & Output 08/27/18 08/27/18 08/28/18 06:59 18:59 06:59 Weight 150 kg - Constitutional severe distress, morbidly obese, chronically ill appearing, diaphoretic - Routine HEENT Exam Head: Present: normocephalic, atraumatic Eye: Present: PERRL - Routine Neck Exam Present: supple, full ROM. Absent: JVD, carotid bruit - Routine Respiratory Exam Present: patient mechanically ventilated. Absent: accessory muscle use, stridor , wheezes - Routine Cardiovascular Exam Present: S1, S2, irregularly irregular - Routine Abdominal Exam Present: soft, normoactive bowel sounds, tenderness. Absent: distended - Routine Extremities Exam Absent: cyanosis, clubbing, edema - Routine Skin Exam Absent: intact, cyanosis, erythema - Routine Neurological Exam Present: altered mental status, moving all extremities Septic Shock Reassessment Septic shock perfusion: reassessment completed Caprini VTE Risk Assessment Caprini VTE Risk Assessment: Moderate/High Risk (score >= 2) VTE Pharmacological Exception Reason: Hemorrhage Caprini Risk Assessment Model: Point Value = 1 Point Value = 2 Point Value = 3 Point Value = 5 Age 41-60 Minor surgery BMI > 25 kg/m2 Swollen legs Varicose veins or History of unexplained or recurrent spontaneous Oral contraceptives or hormone replacement Sepsis (< 1 month) Serious lung disease, including pneumonia (< 1 month) Abnormal pulmonary function Acute myocardial infarction Congestive heart failure (< 1 month) History of inflammatory bowel disease Medical patient at bed rest Age 61-74 Arthroscopic surgery Major open surgery (> 45 min) Laparoscopic surgery (> 45 min) Malignancy Confined to bed (> 72 hours) Immobilizing plaster cast Central venous access Age >= 75 History of VTE Family history of VTE Factor V Leiden Prothrombin [id number] Lupus anticoagulant Anticardiolipin antibodies Elevated serum homocysteine Heparin-induced thrombocytopenia Other congenital or acquired thrombophilia Stroke (< 1 month) Elective arthroplasty Hip, pelvis, or leg fracture Acute spinal cord injury (< 1 month) Prophylaxis Regimen: Total Risk Factor Score Risk Level Prophylaxis Regimen 0-1 Low Early ambulation 2 Moderate Order ONE of the following: *Sequential Compression Device (SCD) *Heparin 5000 units SQ BID 3-4 Higher Order ONE of the following medications: *Heparin 5000 units SQ TID *Enoxaparin/Lovenox 40 mg SQ daily (WT < 150 kg, CrCl > 30 mL/min) *Enoxaparin/Lovenox 30 mg SQ daily (WT < 150 kg, CrCl > 10-29 mL/min) *Enoxaparin/Lovenox 30 mg SQ BID (WT < 150 kg, CrCl > 30 mL/min) AND/OR *Sequential Compression Device (SCD) 5 or more Highest Order ONE of the following medications: *Heparin 5000 units SQ TID (Preferred with Epidurals) *Enoxaparin/Lovenox 40 mg SQ daily (WT < 150 kg, CrCl > 30 mL/min) *Enoxaparin/Lovenox 30 mg SQ daily (WT < 150 kg, CrCl > 10-29 mL/min) *Enoxaparin/Lovenox 30 mg SQ BID (WT < 150 kg, CrCl > 30 mL/min) AND *Sequential Compression Device (SCD) Assessment and Plan - Assessment and Plan Plan: Respiratory failure -Intubated for an airway protection -SBT daily when more alert and hemodynamically stable -Vent bundle -DuoNeb's as needed GI bleed -Protonix IV twice daily -Reverse Eliquis -Patient received K Centra in the ED -Monitor H&H -Gastroenterology consultation Hypotension -Severe dehydration -Aggressive IV fluid resuscitation -Dopamine as needed to keep map above 65 Metabolic acidosis -Severe diarrhea -Levaquin Flagyl empirically -Aggressive IV fluid resuscitation -Sodium bicarbonate IV Acute on chronic kidney failure -Dehydration -Due to volume loss -Strict I's and O's -Monitor creatinine and electrolytes -IV fluids Atrial fibrillation -Rate controlled -Telemetry DVT GI prophylaxis -Teds SCDs -Hold pharmacological DVT prophylaxis due to acute GI bleed -Protonix IV twice daily 35 minutes of critical care
[2018-08-27] MEDS ORDERED: Phytonadione Inj 10 MG in Sodium Chlor 0.9% Inj 50 ML IV.SIG ONE (21:52)
[2018-08-27] MEDS ORDERED: Bisacodyl 10 MG Supp RECTAL PRN (21:53)
[2018-08-27] MEDS ORDERED: Acetaminophen 325 MG Tablet PO PRN (21:53)
[2018-08-27] MEDS ORDERED: Morphine Sulfate Inj 2 MG/ML Vial IV.PUSH PRN (21:53)
[2018-08-27] MEDS ORDERED: Propofol 1000 mg/100 ml Inj 1,000 MG/100 ML BOTTLE IV.CONT PRN (21:53)
[2018-08-27 22:21] LABS: Calcium 7.2 mg/dL (8.5-10.1); Carbon Dioxide 11.6 meq/L (21.0-32.0); Potassium 5.3 meq/L (3.5-5.1)
[2018-08-27] MEDS ORDERED: Sod Chloride 0.9% Inj 1,000 ML IV.SIG SCH (22:30)
[2018-08-27 22:37] LABS: VBG Base Excess -16.6 mmol/L (-2-2); VBG PCO2 29 mmHG (44-48); VBG PH 7.18 (7.360-7.400); VBG PO2 41 mmHG (35-40)
[2018-08-27 22:38] LABS: VBG Blood Gas Oxygen Content 3.7 Vol % (9.0-17.0)
[2018-08-27] MEDS ORDERED: Sodium Chlor 0.9% Inj 250 ML IV.SIG SCH (23:00)
[2018-08-27 23:19] LABS: Calcium-Albumin Corrected 8.9 mg/dL (8.5-10.1); Total Protein 4.2 g/dL (6.4-8.2)
[2018-08-28 00:09] LABS: VBG Base Excess -16.3 mmol/L (-2-2); VBG Blood Gas Oxygen Content 4.5 Vol % (9.0-17.0); VBG PCO2 31 mmHG (44-48); VBG PH 7.17 (7.360-7.400); VBG PO2 24 mmHG (35-40)
[2018-08-28] MEDS: Oral Hygiene Kit OROPHARYNG SCH ×5 (00:46→23:36)
[2018-08-28] MEDS: Sodium Bicarbonate 8.4% Inj 150 MEQ in Water for Inj, Sterile 850 ML IV.CONT SCH ×4 (00:47→20:11)
[2018-08-28] MEDS: fentaNYL 10 mcg/mL Premix Drip 2,500 MCG/250 ML BAG IV.SIG PRN (00:48)
[2018-08-28] MEDS: Midazolam 50 MG/50 ML Inj 50 MG/50 ML BAG IV.CONT PRN ×2 (00:49→21:08)
[2018-08-28] MEDS: Sod Chloride 0.9% Inj 1,000 ML IV.CONT SCH ×4 (01:29→18:48)
[2018-08-28] MEDS: Sod Chloride 0.9% Inj 1,000 ML IV.SIG SCH ×3 (01:30→02:13)
[2018-08-28] MEDS: Vasopressin Inj 40 UNIT in Dextrose 5% in Water Inj 98 ML IV.CONT SCH ×4 (01:33→12:48)
[2018-08-28] MEDS ORDERED: Chlorhexidine Gluconate 2% 1 Pack (2 Cloths) TOPICAL PRN (04:00)
[2018-08-28] MEDS: Chlorhexidine Gluconate 2% 1 Pack (2 Cloths) TOPICAL SCH (04:04)
[2018-08-28] MEDS: DOPamine 800 MG/500 ML Premix 800 MG/500 ML PLAST..BAG IV.CONT PRN (05:00)
[2018-08-28 05:04] LABS: ABG Base Excess -10.3 mmol/L (-2-2); ABG PCO2 21 mmHg (38-42); ABG PO2 190 mmHg (61-120)
[2018-08-28 05:21] LABS: Hemoglobin 11.6 gm/dL (11.6-15.3); Mean Corpuscular Volume 88.3 fL (80.0-100.0); Platelet Count 361 th/mm3 (150-450); Red Blood Count 3.85 mil/mm3 (4.00-5.30); Red Cell Distribution Width 16.4 % (11.6-17.2); White Blood Count 13.7 th/mm3 (4.0-11.0)
[2018-08-28 05:28] LABS: Activated Partial Thrombo Time 53.9 sec (23.4-31.7); INR 1.5 Ratio; Prothrombin Time 15.3 sec (9.8-11.6)
[2018-08-28 05:53] LABS: Albumin 0.8 g/dL (3.4-5.0); Calcium 5.4 mg/dL (8.5-10.1); Carbon Dioxide 13.6 meq/L (21.0-32.0); Magnesium 1.2 mg/dL (1.5-2.5); Phosphorus 4.7 mg/dL (2.5-4.9); Potassium 3.4 meq/L (3.5-5.1); Total Protein 3.7 g/dL (6.4-8.2)
--- NOTE | 2018-08-28 06:43 | P.PNCC ---
Subjective Subjective Remarks/Hospital Course: 73-year-old female presents for an evaluation of altered mental status. Patient has been this way for approximately 3 days. Per EMS report patient has been lethargic but arouses easily. halfway reported to EMS patient has had nausea, vomiting, diarrhea times 3 days. Patient has a history of GI bleed x2 in the past. Past medical history significant for GERD, GI bleed, hypertension, hyperlipidemia, chronic kidney disease, A. fib, CHF. Patient is on Eliquis. The patient was intubated by ED attending for an airway protection in the emergency department, as well as the right femoral central line catheter was placed. 08/28: The patient is now received 8 continuous hours of aggressive resuscitation with mechanical ventilation, 7 L of intravascular fluid administration, broad-spectrum antibiotic coverage, replacement of electrolyte deficits, attempted correction of acid-base deficits, and continuous manipulation of vasopressor agents including dopamine and norepinephrine and vasopressin. She continues with a profound metabolic acidosis and has developed an urea with acute kidney injury on top of underlying chronic kidney disease. Despite best efforts she continues to deteriorate and not respond well to our aggressive interventional therapy. I have spoke with the patient's POA for healthcare, Meggan Johnson, in [place] and she is adamant that we not resort to dialysis and not do chest compressions should her heart stop. Short of that she would like to continue drug support and mechanical ventilation. Objective Vital Signs / I&O: Vital Signs 08/27/18 19:40 08/27/18 19:55 08/27/18 21:12 Temperature 92.5 F L 92.5 F L Pulse Rate 55 L 55 L 78 Respiratory Rate 20 20 18 Blood Pressure 100/60 88/44 L 118/85 Pulse Oximetry 95 96 94 L 08/27/18 21:58 08/27/18 22:22 08/27/18 22:38 Temperature 91.8 F L 91.9 F L 91.8 F L Pulse Rate 87 92 H 98 H Respiratory Rate 18 18 19 Blood Pressure 73/51 L 80/41 L 91/51 L Pulse Oximetry 94 L 97 97 08/27/18 22:50 08/27/18 23:00 08/27/18 23:05 Temperature Pulse Rate 93 H Respiratory Rate 19 Blood Pressure 115/51 L 108/84 Pulse Oximetry 96 100 08/27/18 23:06 08/27/18 23:12 08/27/18 23:15 Temperature 92.1 F L Pulse Rate 96 H 106 H Respiratory Rate 28 H 22 Blood Pressure Pulse Oximetry 100 08/27/18 23:16 08/27/18 23:19 08/27/18 23:30 Temperature 92.1 F L 92.3 F L Pulse Rate 91 H 86 103 H Respiratory Rate 24 18 23 Blood Pressure 112/83 121/56 L Pulse Oximetry 97 08/27/18 23:40 08/27/18 23:42 08/27/18 23:43 Temperature 92.5 F L 92.5 F L Pulse Rate 101 H 101 H Respiratory Rate 24 29 H 27 H Blood Pressure 74/55 L 76/61 L Pulse Oximetry 100 08/27/18 23:45 08/27/18 23:48 08/27/18 23:52 Temperature 92.5 F L 92.7 F L 92.7 F L Pulse Rate 103 H 101 H 99 H Respiratory Rate 25 H 25 H 24 Blood Pressure 135/73 121/55 L Pulse Oximetry 75 L 90 L 08/27/18 23:57 08/28/18 00:00 08/28/18 00:05 Temperature 92.5 F L 92.5 F L 92.3 F L Pulse Rate 95 H 95 H 95 H Respiratory Rate 24 26 H 22 Blood Pressure 126/77 108/65 121/83 Pulse Oximetry 94 L 92 L 85 L 08/28/18 00:10 08/28/18 00:15 08/28/18 00:20 Temperature 92.3 F L 92.3 F L 92.3 F L Pulse Rate 94 H 94 H 92 H Respiratory Rate 19 18 19 Blood Pressure 127/71 106/71 110/67 Pulse Oximetry 87 L 100 08/28/18 00:30 08/28/18 00:40 08/28/18 00:45 Temperature 92.3 F L 92.5 F L 92.7 F L Pulse Rate 94 H 97 H 96 H Respiratory Rate 20 19 19 Blood Pressure 99/57 L 110/51 L Pulse Oximetry 97 100 100 08/28/18 00:50 08/28/18 01:00 08/28/18 01:09 Temperature 92.7 F L 92.8 F L 93.0 F L Pulse Rate 95 H 95 H 96 H Respiratory Rate 19 18 20 Blood Pressure 113/72 108/72 113/79 Pulse Oximetry 100 99 99 08/28/18 01:11 08/28/18 01:15 08/28/18 01:16 Temperature 93.0 F L 93.2 F L 93.2 F L Pulse Rate 90 100 H 104 H Respiratory Rate 17 14 16 Blood Pressure 114/66 117/68 Pulse Oximetry 99 99 99 08/28/18 01:25 08/28/18 01:30 08/28/18 01:31 Temperature 93.2 F L 93.4 F L 93.4 F L Pulse Rate 99 H 105 H 100 H Respiratory Rate 14 14 14 Blood Pressure 118/68 116/70 Pulse Oximetry 99 99 99 08/28/18 01:45 08/28/18 01:46 08/28/18 02:00 Temperature 93.6 F L 93.6 F L 93.7 F L Pulse Rate 106 H 106 H 109 H Respiratory Rate 14 14 14 Blood Pressure 124/60 Pulse Oximetry 99 99 99 08/28/18 02:01 08/28/18 02:15 08/28/18 02:16 Temperature 93.7 F L 94.1 F L 94.1 F L Pulse Rate 108 H 109 H 108 H Respiratory Rate 14 14 14 Blood Pressure 111/70 103/50 L Pulse Oximetry 99 98 98 08/28/18 02:30 08/28/18 02:31 08/28/18 02:45 Temperature 94.3 F L 94.3 F L 94.5 F L Pulse Rate 110 H 110 H 108 H Respiratory Rate 14 14 14 Blood Pressure 109/51 L Pulse Oximetry 99 99 99 08/28/18 02:46 08/28/18 03:00 08/28/18 03:01 Temperature 94.5 F L 94.8 F L 94.8 F L Pulse Rate 109 H 108 H 107 H Respiratory Rate 14 14 14 Blood Pressure 98/67 L 121/64 Pulse Oximetry 99 99 99 08/28/18 03:15 08/28/18 03:20 08/28/18 03:30 Temperature 95.0 F L 95.0 F L 95.2 F L Pulse Rate 108 H 109 H 107 H Respiratory Rate 14 14 14 Blood Pressure 158/112 H 111/58 L Pulse Oximetry 97 97 08/28/18 03:38 08/28/18 03:45 08/28/18 03:53 Temperature 95.4 F L 95.4 F L 95.5 F L Pulse Rate 109 H 109 H 110 H Respiratory Rate 14 14 14 Blood Pressure 103/61 105/73 Pulse Oximetry 98 98 98 08/28/18 03:59 08/28/18 04:00 08/28/18 04:12 Temperature 95.5 F L 95.7 F L Pulse Rate 111 H 113 H Respiratory Rate 14 14 18 Blood Pressure 96/55 L Pulse Oximetry 98 98 97 08/28/18 04:15 08/28/18 04:23 08/28/18 04:30 Temperature 95.7 F L 95.9 F L 95.9 F L Pulse Rate 112 H 109 H 110 H Respiratory Rate 14 14 14 Blood Pressure 107/73 Pulse Oximetry 99 100 98 08/28/18 04:38 08/28/18 04:45 08/28/18 04:53 Temperature 96.1 F L 96.1 F L 96.3 F L Pulse Rate 111 H 112 H 110 H Respiratory Rate 14 14 14 Blood Pressure 122/63 89/53 L Pulse Oximetry 99 99 98 08/28/18 05:00 08/28/18 05:05 08/28/18 05:15 Temperature 96.4 F L 96.4 F L 96.6 F L Pulse Rate 111 H 112 H 113 H Respiratory Rate 15 14 14 Blood Pressure 110/67 Pulse Oximetry 97 97 97 08/28/18 05:17 08/28/18 05:26 08/28/18 05:30 Temperature 96.6 F L 96.6 F L 96.8 F L Pulse Rate 113 H 114 H 114 H Respiratory Rate 14 14 14 Blood Pressure 106/55 L 111/49 L Pulse Oximetry 97 97 97 08/28/18 05:45 08/28/18 06:00 08/28/18 06:15 Temperature 96.8 F L 97.0 F L 97.2 F L Pulse Rate 115 H 115 H 115 H Respiratory Rate 14 14 14 Blood Pressure 179/104 H Pulse Oximetry 97 97 95 Intake & Output 08/27/18 08/27/18 08/28/18 06:59 18:59 06:59 Intake Total 5436 / 5436 Output Total 30 / 30 Balance 5406 / 5406 Weight 104.9 kg Intake: IV 5436 / 5436 DOPamine 800 MG/500 ML Premix 500 / 500 800 mg In 500 ml @ 3 MCG/KG/MIN 16.875 mls/hr IV.CONT TITRATE PRN Rx#:[id number] Levaquin 750 mg Premix Inj 150 150 / 150 ML @ 100 mls/hr IV.SIG ONCE ONE Rx#:[id number] Protonix Inj 80 MG In NS Inj 35 35 / 35 ML @ 420 mls/hr IV.SIG BOLUS ONE Rx#:[id number] Vitamin K Inj 10 MG In NS Inj 51 / 51 50 ML @ 102 mls/hr IV.SIG ONCE ONE Rx#:[id number] Zosyn 4.5 GM Premix 4.5 gm In 100 / 100 100 ml @ 200 mls/hr IV.SIG ONCE ONE Rx#:[id number] NS Inj 1,000 ML @ 1000 mls/hr 4000 / 4000 IV.SIG .Q1H IRVING Rx#:[id number] NS Inj 250 ML @ 15 mls/hr IV. 250 / 250 SIG ONCE IRVING Rx#:[id number] Vancomycin Inj 1,000 MG In NS 250 / 250 Inj 250 ML @ 250 mls/hr IV.SIG ONCE ONE Rx#:[id number] Flagyl 500 MG Inj 100 ML @ 100 100 / 100 mls/hr IV.SIG Q6H IRVING Rx#: [id number] Output: Urine Amount (Catheter) 30 / 30 Indwelling Urethral Catheter 30 Other: Weight On Admission 104.9 kg Result Diagrams: 08/28/18 05:10 08/28/18 05:10 Objective Remarks: - Constitutional On mechanical ventilation with severe distress, morbidly obese, chronically ill appearing, diaphoretic, poorly perfused - Routine HEENT Exam Head: Present: normocephalic, atraumatic Eye: Present: PERRL - Routine Neck Exam Present: supple, full ROM. Orotracheal intubation absent: JVD, carotid bruit - Routine Respiratory Exam Present: patient mechanically ventilated. Scattered rhonchi, acceptable bilateral air entry. absent: accessory muscle use, stridor, wheezes - Routine Cardiovascular Exam Present: S1, S2, irregularly irregular, neck veins not distended - Routine Abdominal Exam Present: soft, normoactive bowel sounds, moderate tenderness. Absent: distended - Routine Extremities Exam Tepid extremities, poorly perfused absent: cyanosis, clubbing, edema - Routine Skin Exam Absent: intact, cyanosis, erythema - Routine Neurological Exam Present: altered mental status, moving all extremities, sedated for vent synchrony Assessment and Plan - Assessment and Plan Plan: Respiratory failure -Intubated for an airway protection -SBT daily when more alert and hemodynamically stable -Vent bundle -DuoNeb's as needed -PRVC mode -Serial ABG GI bleed -Protonix IV twice daily -Reverse Eliquis -Patient received K Centra in the ED -Monitor H&H -Gastroenterology consultation -Serial abdominal exam Hypotension -Severe dehydration -Aggressive IV fluid resuscitation -Dopamine as needed to keep map above 65 -Add levophed upper range 40 mics per minute Metabolic acidosis -Severe diarrhea -Levaquin Flagyl empirically -Aggressive IV fluid resuscitation -Sodium bicarbonate IV, continue Acute on chronic kidney failure -Dehydration -Due to volume loss -Strict I's and O's -Monitor creatinine and electrolytes -IV fluids -An urea now Atrial fibrillation -Rate controlled -Telemetry -Sustained tachycardia DVT GI prophylaxis -Teds SCDs -Hold pharmacological DVT prophylaxis due to acute GI bleed -Protonix IV twice daily Overall impression: This woman is critically ill with distributive shock possibly related to an intra-abdominal process. The initial workup is negative for obvious sepsis source but she continues to be severely hypotensive with large intravenous fluid requirements. Despite early aggressive resuscitation she is not responding to our therapy and continues with a profound metabolic acidosis. We will continue aggressive resuscitation over the ensuing hours and keep the family apprised of these dire straits. I have talked extensively with her only relative in the area, who is the sister of her power of supervisor newspaper deliveries now living in [place]. She is aware that the patient is in desperate condition and may well not survive this illness. She and her sister have requested that we not go to extreme measures and we talked specifically about not doing chest compressions should her heart stop. I will make her alternate CODE STATUS. Critical care time 45 minutes aside from procedures.
[2018-08-28 07:09] LABS: Lymphocytes 3 % (9-44); Platelet Estimate Normal (Normal); Platelet Morphology Normal (Normal)
[2018-08-28 07:10] LABS: Pappenheimer Bodies Present
[2018-08-28] MEDS: Norepinephrine Inj 4 MG in Sodium Chlor 0.9% Inj 246 ML IV.SIG PRN ×6 (07:20→21:06)
[2018-08-28] MEDS: Pantoprazole Inj 40 MG Vial IV.PUSH SCH ×2 (10:14→22:35)
[2018-08-28] MEDS: Chlorhexidine 0.12% Oral Kit 15 ML UDC OROPHARYNG SCH ×2 (10:15→20:12)
[2018-08-28] MEDS: Senna/Docusate Sodium 8.6/50 MG Tablet PO SCH ×2 (10:15→20:12)
[2018-08-28 12:35] LABS: Baso % (Auto) 0.1 % (0.0-2.0); Eos # (Auto) 0.1 th/mm3 (0.0-0.4); Eos % (Auto) 0.7 % (0.0-4.0); Hematocrit 24.4 % (35.0-46.0); Hemoglobin 8.6 gm/dL (11.6-15.3); Lymph # (Auto) 1.3 th/mm3 (1.0-4.8); Lymph % (Auto) 10.3 % (9.0-44.0); Mean Corpuscular HGB Conc 35.3 % (32.0-36.0); Mean Corpuscular Hemoglobin 30.9 pg (27.0-34.0); Mean Corpuscular Volume 87.6 fL (80.0-100.0); Mono # (Auto) 0.3 th/mm3 (0.0-0.9); Mono % (Auto) 2.7 % (0.0-8.0); Neut # (Auto) 11.1 th/mm3 (1.8-7.7); Neut % (Auto) 86.2 % (16.0-70.0); Platelet Count 291 th/mm3 (150-450); Red Blood Count 2.78 mil/mm3 (4.00-5.30); Red Cell Distribution Width 17.2 % (11.6-17.2); White Blood Count 12.9 th/mm3 (4.0-11.0)
[2018-08-28 12:58] LABS: Calcium 5.5 mg/dL (8.5-10.1); Carbon Dioxide 17.9 meq/L (21.0-32.0); Potassium 3.2 meq/L (3.5-5.1)
[2018-08-28 13:11] LABS: Total Protein 4.2 g/dL (6.4-8.2)
[2018-08-28 13:14] LABS: Calcium-Albumin Corrected 6.8 mg/dL (8.5-10.1)
--- NOTE | 2018-08-28 13:17 | P.CONGI ---
History of Present Illness Consult date: 08/28/18 Consult reason: GI bleed Chief complaint: GI Bleed with Hemorrhagic Shock History of Present Illness: This patient is a 73-year-old female who presented to the emergency room at [facility] on 08/27/2018 for evaluation of altered mental status. Patient was brought in from a senior living facility with report that she had been experiencing nausea, vomiting and diarrhea for 3 days. Patient has history of GI bleed, and GERD. Patient also has history of hypertension, hyperlipidemia, chronic kidney disease atrial fibrillation on Eliquis and CHF. This patient was intubated in the emergency room. Upon consultation, patient is intubated via ET tube to ventilator. Dopamine, fentanyl, vasopressin, norepinephrine infusions being administered. Protonix IV twice daily. On admission hemoglobin was noted to be 6.5 and 20. Patient then received 3 units of packed cells. 08/28/2018 hemoglobin 11.6 and 34 INR 1.5. 08/28/2018 at 1210 hemoglobin 8.6 hematocrit 24.4. NG in place to low intermittent wall suction with small amount of clear to tea colored drainage. No obvious bleeding noted or reported <Xochitl Oakes - Last Filed: 08/28/18 12:59> Review of Systems unobtainable due to endotracheal tube <Xochitl Oakes - Last Filed: 08/28/18 12:59> PMFSH - History History Provided By: Medical Record, Revenue Cycle Manager / EMT - Medical History Medical History: Medical History (Last Updated 08/28/18 @ 08:27 by Tasia Villareal) History of MRSA infection Onset Date: ~08/27/18 Atrial fibrillation CKD (chronic kidney disease) stage 3, GFR 30-59 ml/min GERD (gastroesophageal reflux disease) HLD (hyperlipidemia) HTN (hypertension) Obesity, morbid, BMI 40.0-49.9 Urinary tract obstruction by kidney stone - Surgical History Surgical History: Surgical History (Last Reviewed 08/27/18 @ 20:32 by Rasheeda Cruz) History of lithotripsy History of ureter stent Hx of cystoscopy - Family History Family History: Family History (Last Reviewed 08/27/18 @ 20:16 by TOO Carl[place]) Other No significant family history - Tobacco History Second Hand Smoke Exposure: No Smoking Status: Never smoker - Alcohol History How Often Do You Have a Drink Containing Alcohol: Never - Substance Use History Substance History: No History of Abuse - Travel History Recent Travel in the [place] Within the Last 8 Weeks: No Recent Travel Out of the Country Within the Last 8 Weeks: No - Immunization History Tetanus Immunization: Unsure <Xochitl Oakes - Last Filed: 08/28/18 12:59> - Medical History Medical History: Medical History (Last Updated 08/28/18 @ 08:27 by Tasia Villareal) History of MRSA infection Onset Date: ~08/27/18 Atrial fibrillation CKD (chronic kidney disease) stage 3, GFR 30-59 ml/min GERD (gastroesophageal reflux disease) HLD (hyperlipidemia) HTN (hypertension) Obesity, morbid, BMI 40.0-49.9 Urinary tract obstruction by kidney stone - Surgical History Surgical History: Surgical History (Last Reviewed 08/27/18 @ 20:32 by Rasheeda Cruz) History of lithotripsy History of ureter stent Hx of cystoscopy - Family History Family History: Family History (Last Reviewed 08/27/18 @ 20:16 by TOO [place]) Other No significant family history <Oanh Felipe - Last Filed: 08/28/18 18:58> Medications and Allergies Active Medications: Active Medications Acetaminophen (Tylenol) 650 mg PO Q6H PRN PRN Reason: PAIN 1-5 AND/OR FEVER >101F Al Hydroxide/Mg Hydroxide (Milk Of Magntami Liq) 30 ml PO Q12H PRN PRN Reason: Mild Constipation Albuterol (Duoneb Neb (Prn)) 1 ampul NEB Q2HR NEB PRN PRN Reason: WHEEZING Bisacodyl (Dulcolax Supp) 10 mg RECTAL DAILY PRN PRN Reason: SEVERE CONSITIPATION Chlorhexidine Gluconate (Peridex 0.12% Oral Kit) 15 ml OROPHARYNG BID@0800, 2000 [facility] Last Admin: 08/28/18 10:15 Dose: 15 ml Chlorhexidine Gluconate (Chlorhexidine 2% Cloth) 3 pack TOPICAL DAILY@0400 [facility] Stop: 09/02/18 03:59 Last Admin: 08/28/18 04:04 Dose: 3 pack Chlorhexidine Gluconate (Chlorhexidine 2% Cloth) 3 pack TOPICAL DAILY@0400 PRN PRN Reason: Extra cloth needed Stop: 09/02/18 03:59 Dopamine HCl/Dextrose (Dopamine 800 Mg/500 Ml Premix) 800 mg in 500 mls @ 16.875 mls/hr IV.CONT TITRATE PRN; Protocol PRN Reason: Per Protocol Last Titration: 08/28/18 06:30 Dose: 0 mcg/kg/min, 0 mls/hr Sodium Chloride (Ns Inj) 1,000 mls @ 150 mls/hr IV.CONT .Q6H40M [place] Last Admin: 08/28/18 04:04 Dose: Not Given Propofol (Diprivan 1000 Mg/100 Ml Inj) 1,000 mg in 100 mls @ 4.5 mls/hr IV.CONT TITRATE PRN; Protocol PRN Reason: Per Protocol Metronidazole/Sodium Chloride (Flagyl 500 Mg Inj) 100 mls @ 100 mls/hr IV.SIG Q6H [place] Last Infusion: 08/28/18 11:15 Dose: Infused Sodium Chloride (Ns Inj) 250 mls @ 15 mls/hr IV.SIG ONCE [place] Stop: 08/28/18 15:39 Last Infusion: 08/28/18 00:49 Dose: Infused Fentanyl (Fentanyl 10 Mcg/Ml Premix Drip) 2,500 mcg in 250 mls @ 5 mls/hr IV.SIG TITRATE PRN; Protocol PRN Reason: Per Protocol Last Admin: 08/28/18 00:48 Dose: 50 mcg/hr, 5 mls/hr Midazolam HCl (Versed Inj) 50 mg in 50 mls @ 2 mls/hr IV.CONT TITRATE PRN; Protocol PRN Reason: Per Protocol Last Admin: 08/28/18 00:49 Dose: 2 mg/hr, 2 mls/hr Vasopressin 40 unit/ Dextrose 100 mls @ 1.5 mls/hr IV.CONT CONT [place]; Protocol Last Admin: 08/28/18 12:48 Dose: 0.04 units/min, 6 mls/hr Sodium Bicarbonate 150 meq/ (Sterile Water) 1,000 mls @ 150 mls/hr IV.CONT .Q6H40M [place] Last Admin: 08/28/18 07:20 Dose: 150 mls/hr Levofloxacin/Dextrose (Levaquin 500 Mg Premix Inj) 500 mg in 100 mls @ 100 mls/ hr IV.SIG Q48H [place] Norepinephrine Bitartrate 4 mg (/ Sodium Chloride) 250 mls @ 7.5 mls/hr IV.SIG TITRATE PRN; Protocol PRN Reason: Per Protocol Last Admin: 08/28/18 12:46 Dose: 30 mcg/min, 112.5 mls/hr Lactulose (Lactulose Liq) 30 ml PO DAILY PRN PRN Reason: SEVERE CONSITIPATION Midazolam HCl (Versed Inj) 2 mg IV.PUSH Q1H PRN PRN Reason: SEDATION Miscellaneous Medication () 1 each OROPHARYNG 0000,0400,1200,1600 [facility] Last Admin: 08/28/18 04:04 Dose: 1 each Morphine Sulfate (Morphine Inj) 2 mg IV.PUSH Q2H PRN PRN Reason: PAIN SCALE 6 TO 10 Ondansetron HCl (Zofran Inj) 4 mg IV.PUSH Q6H PRN PRN Reason: NAUSEA OR VOMITING Pantoprazole Sodium (Protonix Inj) 40 mg IV.PUSH Q12H [facility] Last Admin: 08/28/18 10:14 Dose: 40 mg Senna/Docusate Sodium (Luana-Colace) 1 tab PO BID [facility] Last Admin: 08/28/18 10:15 Dose: Not Given Sennosides (Senokot) 17.2 mg PO Q12H PRN PRN Reason: Moderate Constipation Sodium Chloride (Ns Flush) 2 ml IV.FLUSH PRN PRN PRN Reason: FLUSH AFTER USING IV ACCESS Sodium Chloride (Ns Flush) 2 ml IV.FLUSH BID [facility] Last Admin: 08/28/18 10:15 Dose: 2 ml Terbutaline Sulfate (Brethine Inj) 1 mg SQ UNSCH PRN PRN Reason: For Extravasation <Xochitl Oakes - Last Filed: 08/28/18 12:59> Active Medications: Active Medications Acetaminophen (Tylenol) 650 mg PO Q6H PRN PRN Reason: PAIN 1-5 AND/OR FEVER >101F Al Hydroxide/Mg Hydroxide (Milk Of Magnesia Liq) 30 ml PO Q12H PRN PRN Reason: Mild Constipation Albuterol (Duoneb Neb (Prn)) 1 ampul NEB Q2HR NEB PRN PRN Reason: WHEEZING Bisacodyl (Dulcolax Supp) 10 mg RECTAL DAILY PRN PRN Reason: SEVERE CONSITIPATION Chlorhexidine Gluconate (Peridex 0.12% Oral Kit) 15 ml OROPHARYNG BID@0800, 2000 [facility] Last Admin: 08/28/18 10:15 Dose: 15 ml Chlorhexidine Gluconate (Chlorhexidine 2% Cloth) 3 pack TOPICAL DAILY@0400 [facility] Stop: 09/02/18 03:59 Last Admin: 08/28/18 04:04 Dose: 3 pack Chlorhexidine Gluconate (Chlorhexidine 2% Cloth) 3 pack TOPICAL DAILY@0400 PRN PRN Reason: Extra cloth needed Stop: 09/02/18 03:59 Dopamine HCl/Dextrose (Dopamine 800 Mg/500 Ml Premix) 800 mg in 500 mls @ 16.875 mls/hr IV.CONT TITRATE PRN; Protocol PRN Reason: Per Protocol Last Titration: 08/28/18 06:30 Dose: 0 mcg/kg/min, 0 mls/hr Sodium Chloride (Ns Inj) 1,000 mls @ 150 mls/hr IV.CONT .Q6H40M [facility] Last Admin: 08/28/18 18:48 Dose: Not Given Propofol (Diprivan 1000 Mg/100 Ml Inj) 1,000 mg in 100 mls @ 4.5 mls/hr IV.CONT TITRATE PRN; Protocol PRN Reason: Per Protocol Metronidazole/Sodium Chloride (Flagyl 500 Mg Inj) 100 mls @ 100 mls/hr IV.SIG Q6H [facility] Last Infusion: 08/28/18 18:10 Dose: Infused Fentanyl (Fentanyl 10 Mcg/Ml Premix Drip) 2,500 mcg in 250 mls @ 5 mls/hr IV.SIG TITRATE PRN; Protocol PRN Reason: Per Protocol Last Admin: 08/28/18 00:48 Dose: 50 mcg/hr, 5 mls/hr Midazolam HCl (Versed Inj) 50 mg in 50 mls @ 2 mls/hr IV.CONT TITRATE PRN; Protocol PRN Reason: Per Protocol Last Titration: 08/28/18 06:45 Dose: 0 mg/hr, 0 mls/hr Vasopressin 40 unit/ Dextrose 100 mls @ 1.5 mls/hr IV.CONT CONT [facility]; Protocol Last Admin: 08/28/18 12:48 Dose: 0.04 units/min, 6 mls/hr Sodium Bicarbonate 150 meq/ (Sterile Water) 1,000 mls @ 150 mls/hr IV.CONT .Q6H40M [facility] Last Admin: 08/28/18 14:05 Dose: 150 mls/hr Levofloxacin/Dextrose (Levaquin 500 Mg Premix Inj) 500 mg in 100 mls @ 100 mls/ hr IV.SIG Q48H [facility] Norepinephrine Bitartrate 4 mg (/ Sodium Chloride) 250 mls @ 7.5 mls/hr IV.SIG TITRATE PRN; Protocol PRN Reason: Per Protocol Last Admin: 08/28/18 17:09 Dose: 25 mcg/min, 93.75 mls/hr Lactulose (Lactulose Liq) 30 ml PO DAILY PRN PRN Reason: SEVERE CONSITIPATION Midazolam HCl (Versed Inj) 2 mg IV.PUSH Q1H PRN PRN Reason: SEDATION Miscellaneous Medication () 1 each OROPHARYNG 0000,0400,1200,1600 [facility] Last Admin: 08/28/18 17:08 Dose: 1 each Morphine Sulfate (Morphine Inj) 2 mg IV.PUSH Q2H PRN PRN Reason: PAIN SCALE 6 TO 10 Ondansetron HCl (Zofran Inj) 4 mg IV.PUSH Q6H PRN PRN Reason: NAUSEA OR VOMITING Pantoprazole Sodium (Protonix Inj) 40 mg IV.PUSH Q12H [facility] Last Admin: 08/28/18 10:14 Dose: 40 mg Senna/Docusate Sodium (Luana-Colace) 1 tab PO BID [facility] Last Admin: 08/28/18 10:15 Dose: Not Given Sennosides (Senokot) 17.2 mg PO Q12H PRN PRN Reason: Moderate Constipation Sodium Chloride (Ns Flush) 2 ml IV.FLUSH PRN PRN PRN Reason: FLUSH AFTER USING IV ACCESS Sodium Chloride (Ns Flush) 2 ml IV.FLUSH BID [facility] Last Admin: 08/28/18 10:15 Dose: 2 ml Terbutaline Sulfate (Brethine Inj) 1 mg SQ UNSCH PRN PRN Reason: For Extravasation <Hemaidan,Ammar - Last Filed: 08/28/18 18:58> Allergies Allergy/AdvReac Type Severity Reaction Status Date / Time erythromycin base Allergy Diarrhea Verified 08/13/18 09:40 Home Medications Medication Instructions Recorded Confirmed Type cholecalciferol (vitamin D3) 2,000 unit PO DAILY 06/15/18 08/27/18 History [Vitamin D3] vit C,C-Ha-vfnyc-lutein-zeaxan 1 tab PO BID 06/15/18 08/27/18 History [PreserVision AREDS-2] zinc sulfate 220 mg PO DAILY 08/05/18 08/27/18 History Exam Vital signs: Vital Signs 08/27/18 19:40 08/27/18 19:55 08/27/18 21:12 Temperature 92.5 F L 92.5 F L Pulse Rate 55 L 55 L 78 Respiratory Rate 20 20 18 Blood Pressure 100/60 88/44 L 118/85 Pulse Oximetry 95 96 94 L 08/27/18 21:58 08/27/18 22:22 08/27/18 22:38 Temperature 91.8 F L 91.9 F L 91.8 F L Pulse Rate 87 92 H 98 H Respiratory Rate 18 18 19 Blood Pressure 73/51 L 80/41 L 91/51 L Pulse Oximetry 94 L 97 97 08/27/18 22:50 08/27/18 23:00 08/27/18 23:05 Temperature Pulse Rate 93 H Respiratory Rate 19 Blood Pressure 115/51 L 108/84 Pulse Oximetry 96 100 08/27/18 23:06 08/27/18 23:12 08/27/18 23:15 Temperature 92.1 F L Pulse Rate 96 H 106 H Respiratory Rate 28 H 22 Blood Pressure Pulse Oximetry 100 08/27/18 23:16 08/27/18 23:19 08/27/18 23:30 Temperature 92.1 F L 92.3 F L Pulse Rate 91 H 86 103 H Respiratory Rate 24 18 23 Blood Pressure 112/83 121/56 L Pulse Oximetry 97 08/27/18 23:40 08/27/18 23:42 08/27/18 23:43 Temperature 92.5 F L 92.5 F L Pulse Rate 101 H 101 H Respiratory Rate 24 29 H 27 H Blood Pressure 74/55 L 76/61 L Pulse Oximetry 100 08/27/18 23:45 08/27/18 23:48 08/27/18 23:52 Temperature 92.5 F L 92.7 F L 92.7 F L Pulse Rate 103 H 101 H 99 H Respiratory Rate 25 H 25 H 24 Blood Pressure 135/73 121/55 L Pulse Oximetry 75 L 90 L 08/27/18 23:57 08/28/18 00:00 08/28/18 00:05 Temperature 92.5 F L 92.5 F L 92.3 F L Pulse Rate 95 H 95 H 95 H Respiratory Rate 24 26 H 22 Blood Pressure 126/77 108/65 121/83 Pulse Oximetry 94 L 92 L 85 L 08/28/18 00:10 08/28/18 00:15 08/28/18 00:20 Temperature 92.3 F L 92.3 F L 92.3 F L Pulse Rate 94 H 94 H 92 H Respiratory Rate 19 18 19 Blood Pressure 127/71 106/71 110/67 Pulse Oximetry 87 L 100 08/28/18 00:30 08/28/18 00:40 08/28/18 00:45 Temperature 92.3 F L 92.5 F L 92.7 F L Pulse Rate 94 H 97 H 96 H Respiratory Rate 20 19 19 Blood Pressure 99/57 L 110/51 L Pulse Oximetry 97 100 100 08/28/18 00:50 08/28/18 01:00 08/28/18 01:09 Temperature 92.7 F L 92.8 F L 93.0 F L Pulse Rate 95 H 95 H 96 H Respiratory Rate 19 18 20 Blood Pressure 113/72 108/72 113/79 Pulse Oximetry 100 99 99 08/28/18 01:11 08/28/18 01:15 08/28/18 01:16 Temperature 93.0 F L 93.2 F L 93.2 F L Pulse Rate 90 100 H 104 H Respiratory Rate 17 14 16 Blood Pressure 114/66 117/68 Pulse Oximetry 99 99 99 08/28/18 01:25 08/28/18 01:30 08/28/18 01:31 Temperature 93.2 F L 93.4 F L 93.4 F L Pulse Rate 99 H 105 H 100 H Respiratory Rate 14 14 14 Blood Pressure 118/68 116/70 Pulse Oximetry 99 99 99 08/28/18 01:45 08/28/18 01:46 08/28/18 02:00 Temperature 93.6 F L 93.6 F L 93.7 F L Pulse Rate 106 H 106 H 109 H Respiratory Rate 14 14 14 Blood Pressure 124/60 Pulse Oximetry 99 99 99 08/28/18 02:01 08/28/18 02:15 08/28/18 02:16 Temperature 93.7 F L 94.1 F L 94.1 F L Pulse Rate 108 H 109 H 108 H Respiratory Rate 14 14 14 Blood Pressure 111/70 103/50 L Pulse Oximetry 99 98 98 08/28/18 02:30 08/28/18 02:31 08/28/18 02:45 Temperature 94.3 F L 94.3 F L 94.5 F L Pulse Rate 110 H 110 H 108 H Respiratory Rate 14 14 14 Blood Pressure 109/51 L Pulse Oximetry 99 99 99 08/28/18 02:46 08/28/18 03:00 08/28/18 03:01 Temperature 94.5 F L 94.8 F L 94.8 F L Pulse Rate 109 H 108 H 107 H Respiratory Rate 14 14 14 Blood Pressure 98/67 L 121/64 Pulse Oximetry 99 99 99 08/28/18 03:15 08/28/18 03:20 08/28/18 03:30 Temperature 95.0 F L 95.0 F L 95.2 F L Pulse Rate 108 H 109 H 107 H Respiratory Rate 14 14 14 Blood Pressure 158/112 H 111/58 L Pulse Oximetry 97 97 08/28/18 03:38 08/28/18 03:45 08/28/18 03:53 Temperature 95.4 F L 95.4 F L 95.5 F L Pulse Rate 109 H 109 H 110 H Respiratory Rate 14 14 14 Blood Pressure 103/61 105/73 Pulse Oximetry 98 98 98 08/28/18 03:59 08/28/18 04:00 08/28/18 04:12 Temperature 95.5 F L 95.7 F L Pulse Rate 111 H 113 H Respiratory Rate 14 14 18 Blood Pressure 96/55 L Pulse Oximetry 98 98 97 08/28/18 04:15 08/28/18 04:23 08/28/18 04:30 Temperature 95.7 F L 95.9 F L 95.9 F L Pulse Rate 112 H 109 H 110 H Respiratory Rate 14 14 14 Blood Pressure 107/73 Pulse Oximetry 99 100 98 08/28/18 04:38 08/28/18 04:45 08/28/18 04:53 Temperature 96.1 F L 96.1 F L 96.3 F L Pulse Rate 111 H 112 H 110 H Respiratory Rate 14 14 14 Blood Pressure 122/63 89/53 L Pulse Oximetry 99 99 98 08/28/18 05:00 08/28/18 05:05 08/28/18 05:15 Temperature 96.4 F L 96.4 F L 96.6 F L Pulse Rate 111 H 112 H 113 H Respiratory Rate 15 14 14 Blood Pressure 110/67 Pulse Oximetry 97 97 97 08/28/18 05:17 08/28/18 05:26 08/28/18 05:30 Temperature 96.6 F L 96.6 F L 96.8 F L Pulse Rate 113 H 114 H 114 H Respiratory Rate 14 14 14 Blood Pressure 106/55 L 111/49 L Pulse Oximetry 97 97 97 08/28/18 05:45 08/28/18 06:00 08/28/18 06:15 Temperature 96.8 F L 97.0 F L 97.2 F L Pulse Rate 115 H 115 H 115 H Respiratory Rate 14 14 14 Blood Pressure 179/104 H Pulse Oximetry 97 97 95 08/28/18 06:18 08/28/18 06:23 08/28/18 06:25 Temperature 97.2 F L 97.2 F L 97.3 F L Pulse Rate 114 H 113 H 113 H Respiratory Rate 20 14 14 Blood Pressure 64/44 L 53/30 L 55/31 L Pulse Oximetry 95 98 95 08/28/18 06:26 08/28/18 06:28 08/28/18 06:30 Temperature 97.3 F L 97.3 F L 97.3 F L Pulse Rate 112 H 114 H 116 H Respiratory Rate 14 18 14 Blood Pressure 54/37 L 95/45 L 79/45 L Pulse Oximetry 96 97 96 08/28/18 06:33 08/28/18 06:38 08/28/18 06:45 Temperature 97.3 F L 97.3 F L 97.3 F L Pulse Rate 119 H 123 H 122 H Respiratory Rate 14 14 14 Blood Pressure 97/42 L 113/49 L 102/68 Pulse Oximetry 96 100 98 08/28/18 06:48 08/28/18 06:56 08/28/18 06:58 Temperature 97.3 F L 97.3 F L 97.3 F L Pulse Rate 121 H 115 H 114 H Respiratory Rate 14 14 14 Blood Pressure 94/42 L 95/48 L 73/50 L Pulse Oximetry 98 98 98 08/28/18 07:00 08/28/18 07:06 08/28/18 07:15 Temperature 97.3 F L 97.3 F L 97.3 F L Pulse Rate 114 H 109 H 103 H Respiratory Rate 15 12 16 Blood Pressure 136/98 H Pulse Oximetry 98 99 100 08/28/18 07:17 08/28/18 07:30 08/28/18 07:45 Temperature 97.3 F L 97.3 F L 97.5 F L Pulse Rate 102 H 94 H 91 H Respiratory Rate 16 23 20 Blood Pressure 64/38 L 104/66 Pulse Oximetry 100 99 96 08/28/18 08:00 08/28/18 08:07 08/28/18 08:15 Temperature 97.5 F L 97.5 F L 97.5 F L Pulse Rate 87 86 85 Respiratory Rate 15 16 15 Blood Pressure 177/77 H 209/181 H Pulse Oximetry 96 96 97 08/28/18 08:30 08/28/18 08:45 08/28/18 08:52 Temperature 97.5 F L 97.5 F L 97.5 F L Pulse Rate 85 85 85 Respiratory Rate 16 15 16 Blood Pressure 95/56 L Pulse Oximetry 96 96 97 08/28/18 08:56 08/28/18 09:00 08/28/18 09:03 Temperature 97.7 F 97.5 F L 97.5 F L Pulse Rate 84 85 84 Respiratory Rate 15 15 15 Blood Pressure 95/56 L 83/44 L Pulse Oximetry 97 99 100 08/28/18 09:15 08/28/18 09:25 08/28/18 09:28 Temperature 97.5 F L 97.5 F L Pulse Rate 83 82 Respiratory Rate 15 14 14 Blood Pressure 92/42 L Pulse Oximetry 94 L 93 L 92 L 08/28/18 09:30 08/28/18 09:40 08/28/18 09:42 Temperature 97.3 F L 97.3 F L 97.2 F L Pulse Rate 82 81 81 Respiratory Rate 14 14 14 Blood Pressure 85/41 L 103/59 L Pulse Oximetry 94 L 94 L 93 L 08/28/18 09:45 08/28/18 09:55 08/28/18 10:00 Temperature 97.2 F L 97.2 F L 97.0 F L Pulse Rate 81 80 79 Respiratory Rate 14 14 14 Blood Pressure 93/44 L Pulse Oximetry 92 L 92 L 92 L 08/28/18 10:06 08/28/18 10:10 08/28/18 10:15 Temperature 97 F L 96.8 F L 96.8 F L Pulse Rate 79 79 79 Respiratory Rate 14 14 14 Blood Pressure 93/44 L 95/45 L Pulse Oximetry 96 94 L 96 08/28/18 10:25 08/28/18 10:30 08/28/18 10:40 Temperature 96.6 F L 96.6 F L 96.6 F L Pulse Rate 88 81 81 Respiratory Rate 19 14 16 Blood Pressure 83/50 L 114/90 Pulse Oximetry 99 100 100 08/28/18 10:45 08/28/18 11:00 08/28/18 11:06 Temperature 96.4 F L 96.3 F L 96.3 F L Pulse Rate 81 82 82 Respiratory Rate 14 15 14 Blood Pressure 102/42 L Pulse Oximetry 100 99 99 08/28/18 11:15 08/28/18 11:17 08/28/18 11:30 Temperature 96.1 F L 96.3 F L 96.1 F L Pulse Rate 80 80 81 Respiratory Rate 14 13 14 Blood Pressure 102/42 L Pulse Oximetry 100 99 99 08/28/18 11:45 08/28/18 11:58 08/28/18 12:00 Temperature 95.9 F L 96.1 F L 95.9 F L Pulse Rate 81 81 82 Respiratory Rate 14 14 14 Blood Pressure Pulse Oximetry 99 99 99 08/28/18 12:05 08/28/18 12:15 Temperature 95.9 F L 96.1 F L Pulse Rate 88 83 Respiratory Rate 14 14 Blood Pressure 97/54 L 98/47 L Pulse Oximetry 98 100 Intake & Output 08/27/18 08/28/18 08/28/18 18:59 06:59 18:59 Intake Total 5536 / 5536 2728 / 2728 Output Total 30 / 30 Balance 5506 / 5506 2728 / 2728 Weight 104.9 kg Intake: IV 5536 / 5536 1700 / 1700 DOPamine 800 MG/500 ML Premix 500 / 500 800 mg In 500 ml @ 3 MCG/KG/MIN 16.875 mls/hr IV.CONT TITRATE PRN Rx#:[id number] Sodium Bicarbonate 8.4% Inj 150 1000 / 1000 MEQ In Sterile Water for Inj 850 ML @ 150 mls/hr IV.CONT . Q6H40M [facility] Rx#:[id number] Pitressin Inj 40 UNIT In D5W 100 / 100 Inj 98 ML @ 0.01 UNITS/MIN 1.5 mls/hr IV.CONT CONT [facility] Rx#: [id number] Levaquin 750 mg Premix Inj 150 150 / 150 ML @ 100 mls/hr IV.SIG ONCE ONE Rx#:[id number] Levophed Inj 4 MG In NS Inj 246 500 / 500 ML @ 2 MCG/MIN 7.5 mls/hr IV. SIG TITRATE PRN Rx#:[id number] Protonix Inj 80 MG In NS Inj 35 35 / 35 ML @ 420 mls/hr IV.SIG BOLUS ONE Rx#:[id number] Vitamin K Inj 10 MG In NS Inj 51 / 51 50 ML @ 102 mls/hr IV.SIG ONCE ONE Rx#:[id number] Zosyn 4.5 GM Premix 4.5 gm In 100 / 100 100 ml @ 200 mls/hr IV.SIG ONCE ONE Rx#:[id number] NS Inj 1,000 ML @ 1000 mls/hr 4000 / 4000 IV.SIG .Q1H [facility] Rx#:[id number] NS Inj 250 ML @ 15 mls/hr IV. 250 / 250 SIG ONCE [facility] Rx#:[id number] Vancomycin Inj 1,000 MG In NS 250 / 250 Inj 250 ML @ 250 mls/hr IV.SIG ONCE ONE Rx#:[id number] Flagyl 500 MG Inj 100 ML @ 100 200 / 200 100 / 100 mls/hr IV.SIG Q6H [facility] Rx#: [id number] Intake (Blood Product) Amt 1028 / 1028 Plasma Thawed 5 Day Acda Unit 221 / 221 [id number] Plasma Thawed 5 Day Cp2d Unit 304 / 304 [id number] Plasma Thawed 5 Day Cp2d Unit 205 / 205 [id number] Plasma Thawed 5 Day Cp2d Unit 298 / 298 [id number] Output: Urine Amount (Catheter) Indwelling Urethral Catheter Other: Weight On Admission 104.9 kg - Constitutional chronically ill appearing Comments: Critically ill intubated and ventilated - Routine HEENT Exam Head: Present: normocephalic - Routine Respiratory Exam Present: patient mechanically ventilated, CTA bilaterally - Routine Cardiovascular Exam Present: S1, S2 - Routine Abdominal Exam Present: soft, normoactive bowel sounds, distended. Absent: firm - Routine Extremities Exam Present: edema Comments: +2-3 bilateral pedal edema - Routine Skin Exam Present: dry, warm - Routine Neurological Exam Sedated for ventilator synchrony <Xochitl Oakes - Last Filed: 08/28/18 12:59> Vital signs: Vital Signs 08/27/18 19:40 08/27/18 19:55 08/27/18 21:12 Temperature 92.5 F L 92.5 F L Pulse Rate 55 L 55 L 78 Respiratory Rate 20 20 18 Blood Pressure 100/60 88/44 L 118/85 Pulse Oximetry 95 96 94 L 08/27/18 21:58 08/27/18 22:22 08/27/18 22:38 Temperature 91.8 F L 91.9 F L 91.8 F L Pulse Rate 87 92 H 98 H Respiratory Rate 18 18 19 Blood Pressure 73/51 L 80/41 L 91/51 L Pulse Oximetry 94 L 97 97 08/27/18 22:50 08/27/18 23:00 08/27/18 23:05 Temperature Pulse Rate 93 H Respiratory Rate 19 Blood Pressure 115/51 L 108/84 Pulse Oximetry 96 100 08/27/18 23:06 08/27/18 23:12 08/27/18 23:15 Temperature 92.1 F L Pulse Rate 96 H 106 H Respiratory Rate 28 H 22 Blood Pressure Pulse Oximetry 100 08/27/18 23:16 08/27/18 23:19 08/27/18 23:30 Temperature 92.1 F L 92.3 F L Pulse Rate 91 H 86 103 H Respiratory Rate 24 18 23 Blood Pressure 112/83 121/56 L Pulse Oximetry 97 08/27/18 23:40 08/27/18 23:42 08/27/18 23:43 Temperature 92.5 F L 92.5 F L Pulse Rate 101 H 101 H Respiratory Rate 24 29 H 27 H Blood Pressure 74/55 L 76/61 L Pulse Oximetry 100 08/27/18 23:45 08/27/18 23:48 08/27/18 23:52 Temperature 92.5 F L 92.7 F L 92.7 F L Pulse Rate 103 H 101 H 99 H Respiratory Rate 25 H 25 H 24 Blood Pressure 135/73 121/55 L Pulse Oximetry 75 L 90 L 08/27/18 23:57 08/28/18 00:00 08/28/18 00:05 Temperature 92.5 F L 92.5 F L 92.3 F L Pulse Rate 95 H 95 H 95 H Respiratory Rate 24 26 H 22 Blood Pressure 126/77 108/65 121/83 Pulse Oximetry 94 L 92 L 85 L 08/28/18 00:10 08/28/18 00:15 08/28/18 00:20 Temperature 92.3 F L 92.3 F L 92.3 F L Pulse Rate 94 H 94 H 92 H Respiratory Rate 19 18 19 Blood Pressure 127/71 106/71 110/67 Pulse Oximetry 87 L 100 08/28/18 00:30 08/28/18 00:40 08/28/18 00:45 Temperature 92.3 F L 92.5 F L 92.7 F L Pulse Rate 94 H 97 H 96 H Respiratory Rate 20 19 19 Blood Pressure 99/57 L 110/51 L Pulse Oximetry 97 100 100 08/28/18 00:50 08/28/18 01:00 08/28/18 01:09 Temperature 92.7 F L 92.8 F L 93.0 F L Pulse Rate 95 H 95 H 96 H Respiratory Rate 19 18 20 Blood Pressure 113/72 108/72 113/79 Pulse Oximetry 100 99 99 08/28/18 01:11 08/28/18 01:15 08/28/18 01:16 Temperature 93.0 F L 93.2 F L 93.2 F L Pulse Rate 90 100 H 104 H Respiratory Rate 17 14 16 Blood Pressure 114/66 117/68 Pulse Oximetry 99 99 99 08/28/18 01:25 08/28/18 01:30 08/28/18 01:31 Temperature 93.2 F L 93.4 F L 93.4 F L Pulse Rate 99 H 105 H 100 H Respiratory Rate 14 14 14 Blood Pressure 118/68 116/70 Pulse Oximetry 99 99 99 08/28/18 01:45 08/28/18 01:46 08/28/18 02:00 Temperature 93.6 F L 93.6 F L 93.7 F L Pulse Rate 106 H 106 H 109 H Respiratory Rate 14 14 14 Blood Pressure 124/60 Pulse Oximetry 99 99 99 08/28/18 02:01 08/28/18 02:15 08/28/18 02:16 Temperature 93.7 F L 94.1 F L 94.1 F L Pulse Rate 108 H 109 H 108 H Respiratory Rate 14 14 14 Blood Pressure 111/70 103/50 L Pulse Oximetry 99 98 98 08/28/18 02:30 08/28/18 02:31 08/28/18 02:45 Temperature 94.3 F L 94.3 F L 94.5 F L Pulse Rate 110 H 110 H 108 H Respiratory Rate 14 14 14 Blood Pressure 109/51 L Pulse Oximetry 99 99 99 08/28/18 02:46 08/28/18 03:00 08/28/18 03:01 Temperature 94.5 F L 94.8 F L 94.8 F L Pulse Rate 109 H 108 H 107 H Respiratory Rate 14 14 14 Blood Pressure 98/67 L 121/64 Pulse Oximetry 99 99 99 08/28/18 03:15 08/28/18 03:20 08/28/18 03:30 Temperature 95.0 F L 95.0 F L 95.2 F L Pulse Rate 108 H 109 H 107 H Respiratory Rate 14 14 14 Blood Pressure 158/112 H 111/58 L Pulse Oximetry 97 97 08/28/18 03:38 08/28/18 03:45 08/28/18 03:53 Temperature 95.4 F L 95.4 F L 95.5 F L Pulse Rate 109 H 109 H 110 H Respiratory Rate 14 14 14 Blood Pressure 103/61 105/73 Pulse Oximetry 98 98 98 08/28/18 03:59 08/28/18 04:00 08/28/18 04:12 Temperature 95.5 F L 95.7 F L Pulse Rate 111 H 113 H Respiratory Rate 14 14 18 Blood Pressure 96/55 L Pulse Oximetry 98 98 97 08/28/18 04:15 08/28/18 04:23 08/28/18 04:30 Temperature 95.7 F L 95.9 F L 95.9 F L Pulse Rate 112 H 109 H 110 H Respiratory Rate 14 14 14 Blood Pressure 107/73 Pulse Oximetry 99 100 98 08/28/18 04:38 08/28/18 04:45 08/28/18 04:53 Temperature 96.1 F L 96.1 F L 96.3 F L Pulse Rate 111 H 112 H 110 H Respiratory Rate 14 14 14 Blood Pressure 122/63 89/53 L Pulse Oximetry 99 99 98 08/28/18 05:00 08/28/18 05:05 08/28/18 05:15 Temperature 96.4 F L 96.4 F L 96.6 F L Pulse Rate 111 H 112 H 113 H Respiratory Rate 15 14 14 Blood Pressure 110/67 Pulse Oximetry 97 97 97 08/28/18 05:17 08/28/18 05:26 08/28/18 05:30 Temperature 96.6 F L 96.6 F L 96.8 F L Pulse Rate 113 H 114 H 114 H Respiratory Rate 14 14 14 Blood Pressure 106/55 L 111/49 L Pulse Oximetry 97 97 97 08/28/18 05:45 08/28/18 06:00 08/28/18 06:15 Temperature 96.8 F L 97.0 F L 97.2 F L Pulse Rate 115 H 115 H 115 H Respiratory Rate 14 14 14 Blood Pressure 179/104 H Pulse Oximetry 97 97 95 08/28/18 06:18 08/28/18 06:23 08/28/18 06:25 Temperature 97.2 F L 97.2 F L 97.3 F L Pulse Rate 114 H 113 H 113 H Respiratory Rate 20 14 14 Blood Pressure 64/44 L 53/30 L 55/31 L Pulse Oximetry 95 98 95 08/28/18 06:26 08/28/18 06:28 08/28/18 06:30 Temperature 97.3 F L 97.3 F L 97.3 F L Pulse Rate 112 H 114 H 116 H Respiratory Rate 14 18 14 Blood Pressure 54/37 L 95/45 L 79/45 L Pulse Oximetry 96 97 96 08/28/18 06:33 08/28/18 06:38 08/28/18 06:45 Temperature 97.3 F L 97.3 F L 97.3 F L Pulse Rate 119 H 123 H 122 H Respiratory Rate 14 14 14 Blood Pressure 97/42 L 113/49 L 102/68 Pulse Oximetry 96 100 98 08/28/18 06:48 08/28/18 06:56 08/28/18 06:58 Temperature 97.3 F L 97.3 F L 97.3 F L Pulse Rate 121 H 115 H 114 H Respiratory Rate 14 14 14 Blood Pressure 94/42 L 95/48 L 73/50 L Pulse Oximetry 98 98 98 08/28/18 07:00 08/28/18 07:06 08/28/18 07:15 Temperature 97.3 F L 97.3 F L 97.3 F L Pulse Rate 114 H 109 H 103 H Respiratory Rate 15 12 16 Blood Pressure 136/98 H Pulse Oximetry 98 99 100 08/28/18 07:17 08/28/18 07:30 08/28/18 07:45 Temperature 97.3 F L 97.3 F L 97.5 F L Pulse Rate 102 H 94 H 91 H Respiratory Rate 16 23 20 Blood Pressure 64/38 L 104/66 Pulse Oximetry 100 99 96 08/28/18 08:00 08/28/18 08:07 08/28/18 08:15 Temperature 97.5 F L 97.5 F L 97.5 F L Pulse Rate 87 86 85 Respiratory Rate 15 16 15 Blood Pressure 177/77 H 209/181 H Pulse Oximetry 96 96 97 08/28/18 08:30 08/28/18 08:45 08/28/18 08:52 Temperature 97.5 F L 97.5 F L 97.5 F L Pulse Rate 85 85 85 Respiratory Rate 16 15 16 Blood Pressure 95/56 L Pulse Oximetry 96 96 97 08/28/18 08:56 08/28/18 09:00 08/28/18 09:03 Temperature 97.7 F 97.5 F L 97.5 F L Pulse Rate 84 85 84 Respiratory Rate 15 15 15 Blood Pressure 95/56 L 83/44 L Pulse Oximetry 97 99 100 08/28/18 09:15 08/28/18 09:25 08/28/18 09:28 Temperature 97.5 F L 97.5 F L Pulse Rate 83 82 Respiratory Rate 15 14 14 Blood Pressure 92/42 L Pulse Oximetry 94 L 93 L 92 L 08/28/18 09:30 08/28/18 09:40 08/28/18 09:42 Temperature 97.3 F L 97.3 F L 97.2 F L Pulse Rate 82 81 81 Respiratory Rate 14 14 14 Blood Pressure 85/41 L 103/59 L Pulse Oximetry 94 L 94 L 93 L 08/28/18 09:45 08/28/18 09:55 08/28/18 10:00 Temperature 97.2 F L 97.2 F L 97.0 F L Pulse Rate 81 80 79 Respiratory Rate 14 14 14 Blood Pressure 93/44 L Pulse Oximetry 92 L 92 L 92 L 08/28/18 10:06 08/28/18 10:10 08/28/18 10:15 Temperature 97 F L 96.8 F L 96.8 F L Pulse Rate 79 79 79 Respiratory Rate 14 14 14 Blood Pressure 93/44 L 95/45 L Pulse Oximetry 96 94 L 96 08/28/18 10:25 08/28/18 10:30 08/28/18 10:40 Temperature 96.6 F L 96.6 F L 96.6 F L Pulse Rate 88 81 81 Respiratory Rate 19 14 16 Blood Pressure 83/50 L 114/90 Pulse Oximetry 99 100 100 08/28/18 10:45 08/28/18 11:00 08/28/18 11:06 Temperature 96.4 F L 96.3 F L 96.3 F L Pulse Rate 81 82 82 Respiratory Rate 14 15 14 Blood Pressure 102/42 L Pulse Oximetry 100 99 99 08/28/18 11:15 08/28/18 11:17 08/28/18 11:30 Temperature 96.1 F L 96.3 F L 96.1 F L Pulse Rate 80 80 81 Respiratory Rate 14 13 14 Blood Pressure 102/42 L Pulse Oximetry 100 99 99 08/28/18 11:45 08/28/18 11:58 08/28/18 12:00 Temperature 95.9 F L 96.1 F L 95.9 F L Pulse Rate 81 81 82 Respiratory Rate 14 14 14 Blood Pressure Pulse Oximetry 99 99 99 08/28/18 12:05 08/28/18 12:15 08/28/18 12:30 Temperature 95.9 F L 96.1 F L 96.1 F L Pulse Rate 88 83 85 Respiratory Rate 14 14 14 Blood Pressure 97/54 L 98/47 L 92/53 L Pulse Oximetry 98 100 100 08/28/18 12:45 08/28/18 13:00 08/28/18 13:15 Temperature 96.1 F L 96.3 F L 96.4 F L Pulse Rate 83 85 85 Respiratory Rate 14 14 14 Blood Pressure 88/53 L 95/58 L 91/54 L Pulse Oximetry 99 99 99 08/28/18 13:24 08/28/18 13:30 08/28/18 13:45 Temperature 96.6 F L 96.8 F L Pulse Rate 87 87 Respiratory Rate 14 14 14 Blood Pressure 90/53 L 90/50 L Pulse Oximetry 99 99 99 08/28/18 14:00 08/28/18 14:15 08/28/18 14:30 Temperature 97.0 F L 97.2 F L 97.3 F L Pulse Rate 88 91 H 94 H Respiratory Rate 14 14 24 Blood Pressure 120/56 L 112/47 L 103/51 L Pulse Oximetry 99 99 96 08/28/18 14:45 08/28/18 15:00 08/28/18 15:15 Temperature 97.5 F L 97.5 F L 97.7 F Pulse Rate 96 H 91 H 89 Respiratory Rate 21 15 14 Blood Pressure 112/55 L 117/57 L Pulse Oximetry 96 96 89 L 08/28/18 15:24 08/28/18 15:30 08/28/18 15:45 Temperature 97.7 F 97.7 F 97.7 F Pulse Rate 94 H 92 H 54 L Respiratory Rate 14 14 21 Blood Pressure 129/57 L 126/50 L 120/48 L Pulse Oximetry 98 98 99 08/28/18 16:00 08/28/18 16:15 08/28/18 16:30 Temperature 97.7 F 97.9 F 97.9 F Pulse Rate 94 H 79 92 H Respiratory Rate 14 25 H 0 L Blood Pressure 134/58 L 93/52 L 94/48 L Pulse Oximetry 97 99 100 08/28/18 16:45 08/28/18 17:00 08/28/18 17:15 Temperature 97.9 F 97.9 F 98.1 F Pulse Rate 93 H 93 H Respiratory Rate 0 L 0 L 17 Blood Pressure 109/55 L 117/53 L 110/51 L Pulse Oximetry 99 100 100 08/28/18 17:30 08/28/18 17:45 08/28/18 17:52 Temperature 98.1 F 98.1 F Pulse Rate 93 H 95 H Respiratory Rate 14 14 14 Blood Pressure 103/54 L 103/51 L Pulse Oximetry 100 100 100 08/28/18 18:00 08/28/18 18:15 08/28/18 18:30 Temperature 98.1 F 98.1 F 98.1 F Pulse Rate 98 H 100 H 96 H Respiratory Rate 14 14 14 Blood Pressure 100/50 L 93/54 L 95/53 L Pulse Oximetry 100 96 95 Intake & Output 08/27/18 08/28/18 08/28/18 18:59 06:59 18:59 Intake Total 5536 / 5536 4678 / 4678 Output Total 30 / 30 50 / 50 Balance 5506 / 5506 4628 / 4628 Weight 104.9 kg Intake: IV 5536 / 5536 3650 / 3650 DOPamine 800 MG/500 ML Premix 500 / 500 800 mg In 500 ml @ 3 MCG/KG/MIN 16.875 mls/hr IV.CONT TITRATE PRN Rx#:[id number] Sodium Bicarbonate 8.4% Inj 150 2000 / 2000 MEQ In Sterile Water for Inj 850 ML @ 150 mls/hr IV.CONT . [id number] [facility] Rx#:[id number] Pitressin Inj 40 UNIT In D5W 100 / 100 Inj 98 ML @ 0.01 UNITS/MIN 1.5 mls/hr IV.CONT CONT [facility] Rx#: [id number] Levaquin 750 mg Premix Inj 150 150 / 150 ML @ 100 mls/hr IV.SIG ONCE ONE Rx#:[id number] Levophed Inj 4 MG In NS Inj 246 1000 / 1000 ML @ 2 MCG/MIN 7.5 mls/hr IV. SIG TITRATE PRN Rx#:[id number] Levophed-Dextrose 4 mg/250 ml 250 / 250 Drip 4 mg In 250 ml @ 0 mls/hr IV.SIG .STK-MED ONE Rx#: [id number] Protonix Inj 80 MG In NS Inj 35 35 / 35 ML @ 420 mls/hr IV.SIG BOLUS ONE Rx#:[id number] Vitamin K Inj 10 MG In NS Inj 51 / 51 50 ML @ 102 mls/hr IV.SIG ONCE ONE Rx#:[id number] Zosyn 4.5 GM Premix 4.5 gm In 100 / 100 100 ml @ 200 mls/hr IV.SIG ONCE ONE Rx#:[id number] NS Inj 1,000 ML @ 1000 mls/hr 4000 / 4000 IV.SIG .Q1H [facility] Rx#:[id number] NS Inj 250 ML @ 15 mls/hr IV. 250 / 250 SIG ONCE [place] Rx#:[id number] Vancomycin Inj 1,000 MG In NS 250 / 250 Inj 250 ML @ 250 mls/hr IV.SIG ONCE ONE Rx#:[id number] Flagyl 500 MG Inj 100 ML @ 100 200 / 200 200 / 200 mls/hr IV.SIG Q6H [facility] Rx#: [id number] Intake (Blood Product) Amt 1028 / 1028 Plasma Thawed 5 Day Acda Unit 221 / 221 [id number] Plasma Thawed 5 Day Cp2d Unit 304 / 304 [id number] Plasma Thawed 5 Day Cp2d Unit 205 / 205 [id number] Plasma Thawed 5 Day Cp2d Unit 298 / 298 [id number] Output: Urine 50 / 50 Urine Amount (Catheter) Indwelling Urethral Catheter Other: # Bowel Movements 0 Weight On Admission 104.9 kg <Oanh Felipe - Last Filed: 08/28/18 18:58> Results - Labs CBC & Chem 7: 08/28/18 12:10 08/28/18 05:10 Labs: Laboratory Results - last 24 hr 08/27/18 08/27/18 08/27/18 20:37 20:40 20:40 WBC RBC Hgb POC Hgb (Calc) Hct POC Hct MCV MCH MCHC RDW Plt Count MPV Prelim Diff (Auto) Neut % (Auto) Lymph % (Auto) Bond % (Auto) Eos % (Auto) Baso % (Auto) Neut # (Auto) Lymph # (Auto) Bond # (Auto) Eos # (Auto) Baso # (Auto) WBC Differential Seg Neuts % (Manual) Band Neuts % (Manual) Lymphocytes % (Manual) Abs Neuts (Manual) Differential Comment Platelet Estimate Platelet Morphology Pappenheimer Bodies PT 23.8 H INR 2.4 APTT Puncture Site Patient Temperature O2 Saturation ABG pH ABG pCO2 ABG pO2 ABG HCO3 ABG O2 Content ABG Base Excess ABG Methemoglobin Ag Test VBG pH VBG pCO2 VBG pO2 VBG HCO3 VBG O2 Saturation VBG O2 Content VBG Base Excess VBG Carboxyhemoglobin VBG Methemoglobin Hemoglobin Carboxyhemoglobin O2 Delivery Device Vent Setting Inspired O2 Critical Value POC Sodium Sodium POC Potassium Potassium POC Chloride Chloride Carbon Dioxide Anion Gap POC BUN BUN Creatinine POC Creatinine Estimated GFR POC Glucose Random Glucose Lactic Acid Calcium Prot Corrected Calcium Phosphorus Magnesium Total Bilirubin AST ALT Alkaline Phosphatase B-Natriuretic Peptide 110 H Total Protein Albumin Nasal Screen MRSA (PCR) Stl C.difficile DNA Amp St C. diff Tox Epid 027 Blood Type Blood Type Recheck Antibody Screen MTS Gel Crossmatch See Detail Blood Bank Comment 08/27/18 08/27/18 08/27/18 20:40 20:40 20:40 WBC 11.1 H RBC 2.11 L Hgb 6.5 L* POC Hgb (Calc) Hct 20.4 L* POC Hct MCV 96.3 MCH 30.6 MCHC 31.7 L RDW 16.8 Plt Count 418 D MPV 8.4 Prelim Diff (Auto) Slide review pending Neut % (Auto) 81.1 H Lymph % (Auto) 17.0 Bond % (Auto) 1.8 Eos % (Auto) 0.1 Baso % (Auto) 0.0 Neut # (Auto) 9.0 H Lymph # (Auto) 1.9 Bond # (Auto) 0.2 Eos # (Auto) 0.0 Baso # (Auto) 0.0 WBC Differential Manual diff final Seg Neuts % (Manual) 70 Band Neuts % (Manual) 26 H Lymphocytes % (Manual) 4 L Abs Neuts (Manual) 10.7 H Differential Comment . Platelet Estimate High H Platelet Morphology Enlarged H Pappenheimer Bodies PT INR APTT Puncture Site Patient Temperature O2 Saturation ABG pH ABG pCO2 ABG pO2 ABG HCO3 ABG O2 Content ABG Base Excess ABG Methemoglobin Ag Test VBG pH VBG pCO2 VBG pO2 VBG HCO3 VBG O2 Saturation VBG O2 Content VBG Base Excess VBG Carboxyhemoglobin VBG Methemoglobin Hemoglobin Carboxyhemoglobin O2 Delivery Device Vent Setting Inspired O2 Critical Value POC Sodium Sodium 137 POC Potassium Potassium 5.1 POC Chloride Chloride 108 H Carbon Dioxide 10.4 L Anion Gap 19 H POC BUN BUN 72 H Creatinine 3.59 H POC Creatinine Estimated GFR 13 L POC Glucose Random Glucose 114 H Lactic Acid 5.7 H* Calcium 6.2 L* Prot Corrected Calcium 8.5 Phosphorus Magnesium 1.6 Total Bilirubin 0.2 AST 29 ALT 23 Alkaline Phosphatase 98 B-Natriuretic Peptide Total Protein 2.9 L Albumin 0.6 L Nasal Screen MRSA (PCR) Stl C.difficile DNA Amp St C. diff Tox Epid 027 Blood Type Blood Type Recheck Antibody Screen MTS Gel Crossmatch Blood Bank Comment 08/27/18 08/27/18 08/27/18 20:40 20:40 20:40 WBC RBC Hgb POC Hgb (Calc) Cancelled Hct POC Hct Cancelled MCV MCH MCHC RDW Plt Count MPV Prelim Diff (Auto) Neut % (Auto) Lymph % (Auto) Bond % (Auto) Eos % (Auto) Baso % (Auto) Neut # (Auto) Lymph # (Auto) Bond # (Auto) Eos # (Auto) Baso # (Auto) WBC Differential Seg Neuts % (Manual) Band Neuts % (Manual) Lymphocytes % (Manual) Abs Neuts (Manual) Differential Comment Platelet Estimate Platelet Morphology Pappenheimer Bodies PT INR APTT Puncture Site Right femoral Patient Temperature 98.6 O2 Saturation ABG pH ABG pCO2 ABG pO2 ABG HCO3 ABG O2 Content ABG Base Excess ABG Methemoglobin Ag Test VBG pH 7.18 L* VBG pCO2 29 L VBG pO2 41 H VBG HCO3 10 L* VBG O2 Saturation 53 L VBG O2 Content 3.7 L VBG Base Excess -16.6 L VBG Carboxyhemoglobin 1.1 VBG Methemoglobin 0.3 Hemoglobin 4.9 L* Carboxyhemoglobin O2 Delivery Device Ventilator Vent Setting Inspired O2 100 Critical Value Yes POC Sodium Cancelled Sodium POC Potassium Cancelled Potassium POC Chloride Cancelled Chloride Carbon Dioxide Anion Gap POC BUN Cancelled BUN Creatinine POC Creatinine Cancelled Estimated GFR POC Glucose Cancelled Random Glucose Lactic Acid Calcium Prot Corrected Calcium Phosphorus Magnesium Total Bilirubin AST ALT Alkaline Phosphatase B-Natriuretic Peptide Total Protein Albumin Nasal Screen MRSA (PCR) Stl C.difficile DNA Amp St C. diff Tox Epid 027 Blood Type A Negative Blood Type Recheck Not needed Antibody Screen Negative MTS Gel Crossmatch Blood Bank Comment 08/27/18 08/27/18 08/27/18 20:40 20:40 21:03 WBC RBC Hgb POC Hgb (Calc) Hct POC Hct MCV MCH MCHC RDW Plt Count MPV Prelim Diff (Auto) Neut % (Auto) Lymph % (Auto) Bond % (Auto) Eos % (Auto) Baso % (Auto) Neut # (Auto) Lymph # (Auto) Bond # (Auto) Eos # (Auto) Baso # (Auto) WBC Differential Seg Neuts % (Manual) Band Neuts % (Manual) Lymphocytes % (Manual) Abs Neuts (Manual) Differential Comment Platelet Estimate Platelet Morphology Pappenheimer Bodies PT INR APTT 91.2 H* Puncture Site Patient Temperature O2 Saturation ABG pH ABG pCO2 ABG pO2 ABG HCO3 ABG O2 Content ABG Base Excess ABG Methemoglobin Ag Test VBG pH VBG pCO2 VBG pO2 VBG HCO3 VBG O2 Saturation VBG O2 Content VBG Base Excess VBG Carboxyhemoglobin VBG Methemoglobin Hemoglobin Carboxyhemoglobin O2 Delivery Device Vent Setting Inspired O2 Critical Value POC Sodium Sodium 134 L POC Potassium Potassium 5.3 H POC Chloride Chloride 104 Carbon Dioxide 11.6 L Anion Gap 18 H POC BUN BUN 71 H Creatinine 4.01 H POC Creatinine Estimated GFR 11 L POC Glucose Random Glucose 112 H Lactic Acid Calcium 7.2 L* D Prot Corrected Calcium 8.9 Phosphorus Magnesium Total Bilirubin AST ALT Alkaline Phosphatase B-Natriuretic Peptide Total Protein 4.2 L D Albumin Nasal Screen MRSA (PCR) Stl C.difficile DNA Amp St C. diff Tox Epid 027 Blood Type Blood Type Recheck Antibody Screen MTS Gel Crossmatch See Detail Blood Bank Comment 08/27/18 08/27/18 08/27/18 21:51 23:45 23:45 WBC RBC Hgb POC Hgb (Calc) Hct POC Hct MCV MCH MCHC RDW Plt Count MPV Prelim Diff (Auto) Neut % (Auto) Lymph % (Auto) Bond % (Auto) Eos % (Auto) Baso % (Auto) Neut # (Auto) Lymph # (Auto) Bond # (Auto) Eos # (Auto) Baso # (Auto) WBC Differential Seg Neuts % (Manual) Band Neuts % (Manual) Lymphocytes % (Manual) Abs Neuts (Manual) Differential Comment Platelet Estimate Platelet Morphology Pappenheimer Bodies PT INR APTT Puncture Site Patient Temperature O2 Saturation ABG pH ABG pCO2 ABG pO2 ABG HCO3 ABG O2 Content ABG Base Excess ABG Methemoglobin Ag Test VBG pH VBG pCO2 VBG pO2 VBG HCO3 VBG O2 Saturation VBG O2 Content VBG Base Excess VBG Carboxyhemoglobin VBG Methemoglobin Hemoglobin Carboxyhemoglobin O2 Delivery Device Vent Setting Inspired O2 Critical Value POC Sodium Sodium POC Potassium Potassium POC Chloride Chloride Carbon Dioxide Anion Gap POC BUN BUN Creatinine POC Creatinine Estimated GFR POC Glucose Random Glucose Lactic Acid Calcium Prot Corrected Calcium Phosphorus Magnesium Total Bilirubin AST ALT Alkaline Phosphatase B-Natriuretic Peptide Total Protein Albumin Nasal Screen MRSA (PCR) Mrsa detected Stl C.difficile DNA Amp Negative St C. diff Tox Epid 027 Negative Blood Type Blood Type Recheck Antibody Screen MTS Gel Crossmatch Blood Bank Comment 08/28/18 08/28/18 08/28/18 00:00 00:15 04:52 WBC RBC Hgb POC Hgb (Calc) Hct POC Hct MCV MCH MCHC RDW Plt Count MPV Prelim Diff (Auto) Neut % (Auto) Lymph % (Auto) Bond % (Auto) Eos % (Auto) Baso % (Auto) Neut # (Auto) Lymph # (Auto) Bond # (Auto) Eos # (Auto) Baso # (Auto) WBC Differential Seg Neuts % (Manual) Band Neuts % (Manual) Lymphocytes % (Manual) Abs Neuts (Manual) Differential Comment Platelet Estimate Platelet Morphology Pappenheimer Bodies PT INR APTT Puncture Site Lt arm Left radial Patient Temperature 98.6 98.6 O2 Saturation 98 ABG pH 7.42 ABG pCO2 21 L* ABG pO2 190 H ABG HCO3 13 L* ABG O2 Content 16.1 ABG Base Excess -10.3 L ABG Methemoglobin 1.1 Ag Test Present VBG pH 7.17 L* VBG pCO2 31 L VBG pO2 24 L* VBG HCO3 11 L* VBG O2 Saturation 30 L VBG O2 Content 4.5 L VBG Base Excess -16.3 L VBG Carboxyhemoglobin 0.4 VBG Methemoglobin 1.1 Hemoglobin 10.6 L 11.5 L Carboxyhemoglobin 0.9 O2 Delivery Device Ventilator Ventilator Vent Setting Prvc/ac Prvc/ac Inspired O2 100 90 Critical Value Yes Yes POC Sodium Sodium POC Potassium Potassium POC Chloride Chloride Carbon Dioxide Anion Gap POC BUN BUN Creatinine POC Creatinine Estimated GFR POC Glucose Random Glucose Lactic Acid 4.8 H* Calcium Prot Corrected Calcium Phosphorus Magnesium Total Bilirubin AST ALT Alkaline Phosphatase B-Natriuretic Peptide Total Protein Albumin Nasal Screen MRSA (PCR) Stl C.difficile DNA Amp St C. diff Tox Epid 027 Blood Type Blood Type Recheck Antibody Screen MTS Gel Crossmatch Blood Bank Comment 08/28/18 08/28/18 08/28/18 05:10 05:10 05:10 WBC 13.7 H RBC 3.85 L Hgb 11.6 D POC Hgb (Calc) Hct 34.0 L POC Hct MCV 88.3 D MCH 30.0 MCHC 34.0 RDW 16.4 Plt Count 361 MPV 8.0 Prelim Diff (Auto) Manual diff required Neut % (Auto) Lymph % (Auto) Bond % (Auto) Eos % (Auto) Baso % (Auto) Neut # (Auto) Lymph # (Auto) Bond # (Auto) Eos # (Auto) Baso # (Auto) WBC Differential Manual diff final Seg Neuts % (Manual) 90 H Band Neuts % (Manual) 7 H Lymphocytes % (Manual) 3 L Abs Neuts (Manual) 13.3 H Differential Comment . Platelet Estimate Normal Platelet Morphology Normal Pappenheimer Bodies Present H PT 15.3 H INR 1.5 APTT 53.9 H D Puncture Site Patient Temperature O2 Saturation ABG pH ABG pCO2 ABG pO2 ABG HCO3 ABG O2 Content ABG Base Excess ABG Methemoglobin Ag Test VBG pH VBG pCO2 VBG pO2 VBG HCO3 VBG O2 Saturation VBG O2 Content VBG Base Excess VBG Carboxyhemoglobin VBG Methemoglobin Hemoglobin Carboxyhemoglobin O2 Delivery Device Vent Setting Inspired O2 Critical Value POC Sodium Sodium 139 POC Potassium Potassium 3.4 L D POC Chloride Chloride 107 Carbon Dioxide 13.6 L Anion Gap 18 H POC BUN BUN 55 H Creatinine 2.94 H POC Creatinine Estimated GFR 16 L POC Glucose Random Glucose 295 H D Lactic Acid Calcium 5.4 L* D Prot Corrected Calcium 6.9 L* D Phosphorus 4.7 Magnesium 1.2 L Total Bilirubin 1.1 H AST 47 H ALT 32 Alkaline Phosphatase 129 H B-Natriuretic Peptide Total Protein 3.7 L Albumin 0.8 L Nasal Screen MRSA (PCR) Stl C.difficile DNA Amp St C. diff Tox Epid 027 Blood Type Blood Type Recheck Antibody Screen MTS Gel Crossmatch Blood Bank Comment 08/28/18 08/28/18 10:31 12:10 WBC 12.9 H RBC 2.78 L Hgb 8.6 L D POC Hgb (Calc) Hct 24.4 L POC Hct MCV 87.6 MCH 30.9 MCHC 35.3 RDW 17.2 Plt Count 291 MPV 8.0 Prelim Diff (Auto) Neut % (Auto) 86.2 H Lymph % (Auto) 10.3 Bond % (Auto) 2.7 Eos % (Auto) 0.7 Baso % (Auto) 0.1 Neut # (Auto) 11.1 H Lymph # (Auto) 1.3 Bond # (Auto) 0.3 Eos # (Auto) 0.1 Baso # (Auto) 0.0 WBC Differential . Seg Neuts % (Manual) Band Neuts % (Manual) Lymphocytes % (Manual) Abs Neuts (Manual) Differential Comment Auto diff final Platelet Estimate Platelet Morphology Pappenheimer Bodies PT INR APTT Puncture Site Patient Temperature O2 Saturation ABG pH ABG pCO2 ABG pO2 ABG HCO3 ABG O2 Content ABG Base Excess ABG Methemoglobin Ag Test VBG pH VBG pCO2 VBG pO2 VBG HCO3 VBG O2 Saturation VBG O2 Content VBG Base Excess VBG Carboxyhemoglobin VBG Methemoglobin Hemoglobin Carboxyhemoglobin O2 Delivery Device Vent Setting Inspired O2 Critical Value POC Sodium Sodium POC Potassium Potassium POC Chloride Chloride Carbon Dioxide Anion Gap POC BUN BUN Creatinine POC Creatinine Estimated GFR POC Glucose Random Glucose Lactic Acid 5.0 H* Calcium Prot Corrected Calcium Phosphorus Magnesium Total Bilirubin AST ALT Alkaline Phosphatase B-Natriuretic Peptide Total Protein Albumin Nasal Screen MRSA (PCR) Stl C.difficile DNA Amp St C. diff Tox Epid 027 Blood Type Blood Type Recheck Antibody Screen MTS Gel Crossmatch Blood Bank Comment - Imaging Impressions Chest X-Ray 08/27/18 21:01 CONCLUSION: 1. ET tube tip is within 2 cm of the fred and needs to be withdrawn 1 cm. 2. Patchy infiltrates in the left lower lung. <Xochitl Oakes - Last Filed: 08/28/18 12:59> - Labs CBC & Chem 7: 08/28/18 12:10 08/28/18 12:10 Labs: Laboratory Results - last 24 hr 08/27/18 08/27/18 08/27/18 20:37 20:40 20:40 WBC RBC Hgb POC Hgb (Calc) Hct POC Hct MCV MCH MCHC RDW Plt Count MPV Prelim Diff (Auto) Neut % (Auto) Lymph % (Auto) Bond % (Auto) Eos % (Auto) Baso % (Auto) Neut # (Auto) Lymph # (Auto) Bond # (Auto) Eos # (Auto) Baso # (Auto) WBC Differential Seg Neuts % (Manual) Band Neuts % (Manual) Lymphocytes % (Manual) Abs Neuts (Manual) Differential Comment Platelet Estimate Platelet Morphology Pappenheimer Bodies PT 23.8 H INR 2.4 APTT Puncture Site Patient Temperature O2 Saturation ABG pH ABG pCO2 ABG pO2 ABG HCO3 ABG O2 Content ABG Base Excess ABG Methemoglobin Ag Test VBG pH VBG pCO2 VBG pO2 VBG HCO3 VBG O2 Saturation VBG O2 Content VBG Base Excess VBG Carboxyhemoglobin VBG Methemoglobin Hemoglobin Carboxyhemoglobin O2 Delivery Device Vent Setting Inspired O2 Critical Value POC Sodium Sodium POC Potassium Potassium POC Chloride Chloride Carbon Dioxide Anion Gap POC BUN BUN Creatinine POC Creatinine Estimated GFR POC Glucose Random Glucose Lactic Acid Calcium Prot Corrected Calcium Phosphorus Magnesium Total Bilirubin AST ALT Alkaline Phosphatase B-Natriuretic Peptide 110 H Total Protein Albumin Ur Collection Type Urine Color Urine Clarity Urine pH Ur Specific [place] Urine Protein Urine Glucose (UA) Urine Ketones Urine Occult Blood Urine Nitrate Urine Bilirubin Urine Ictotest Urine Urobilinogen Ur Leukocyte Esterase Urine RBC Urine WBC Urine WBC Clumps Ur Squamous Epith Cells Ur Transition Epith Cell Ur Renal Epithelial Cell Calcium Carbonate Cryst Calcium Oxalate Crystal Leucine Crystals Cystine Crystals Uric Acid Crystals Triple Phos Crystals Cholesterol Crystals Tyrosine Crystals Amorphous Sediment Urine Bacteria Hyaline Casts Granular Casts Fine Granular Casts Coarse Granular Casts Waxy Casts RBC Casts WBC Casts Urine Mucus Urine Trichomonas Urine Yeast Ur Yeast w Hyphae Urine Sperm Ur Oval Fat Bodies Micro UA Comment Ur Microscopic Review Urine Culture Comments Urine Collection Time Urine Comment Nasal Screen MRSA (PCR) Stl C.difficile DNA Amp St C. diff Tox Epid 027 Blood Type Blood Type Recheck Antibody Screen MTS Gel Crossmatch See Detail Blood Bank Comment 08/27/18 08/27/18 08/27/18 20:40 20:40 20:40 WBC 11.1 H RBC 2.11 L Hgb 6.5 L* POC Hgb (Calc) Hct 20.4 L* POC Hct MCV 96.3 MCH 30.6 MCHC 31.7 L RDW 16.8 Plt Count 418 D MPV 8.4 Prelim Diff (Auto) Slide review pending Neut % (Auto) 81.1 H Lymph % (Auto) 17.0 Bond % (Auto) 1.8 Eos % (Auto) 0.1 Baso % (Auto) 0.0 Neut # (Auto) 9.0 H Lymph # (Auto) 1.9 Bond # (Auto) 0.2 Eos # (Auto) 0.0 Baso # (Auto) 0.0 WBC Differential Manual diff final Seg Neuts % (Manual) 70 Band Neuts % (Manual) 26 H Lymphocytes % (Manual) 4 L Abs Neuts (Manual) 10.7 H Differential Comment . Platelet Estimate High H Platelet Morphology Enlarged H Pappenheimer Bodies PT INR APTT Puncture Site Patient Temperature O2 Saturation ABG pH ABG pCO2 ABG pO2 ABG HCO3 ABG O2 Content ABG Base Excess ABG Methemoglobin Ag Test VBG pH VBG pCO2 VBG pO2 VBG HCO3 VBG O2 Saturation VBG O2 Content VBG Base Excess VBG Carboxyhemoglobin VBG Methemoglobin Hemoglobin Carboxyhemoglobin O2 Delivery Device Vent Setting Inspired O2 Critical Value POC Sodium Sodium 137 POC Potassium Potassium 5.1 POC Chloride Chloride 108 H Carbon Dioxide 10.4 L Anion Gap 19 H POC BUN BUN 72 H Creatinine 3.59 H POC Creatinine Estimated GFR 13 L POC Glucose Random Glucose 114 H Lactic Acid 5.7 H* Calcium 6.2 L* Prot Corrected Calcium 8.5 Phosphorus Magnesium 1.6 Total Bilirubin 0.2 AST 29 ALT 23 Alkaline Phosphatase 98 B-Natriuretic Peptide Total Protein 2.9 L Albumin 0.6 L Ur Collection Type Urine Color Urine Clarity Urine pH Ur Specific [place] Urine Protein Urine Glucose (UA) Urine Ketones Urine Occult Blood Urine Nitrate Urine Bilirubin Urine Ictotest Urine Urobilinogen Ur Leukocyte Esterase Urine RBC Urine WBC Urine WBC Clumps Ur Squamous Epith Cells Ur Transition Epith Cell Ur Renal Epithelial Cell Calcium Carbonate Cryst Calcium Oxalate Crystal Leucine Crystals Cystine Crystals Uric Acid Crystals Triple Phos Crystals Cholesterol Crystals Tyrosine Crystals Amorphous Sediment Urine Bacteria Hyaline Casts Granular Casts Fine Granular Casts Coarse Granular Casts Waxy Casts RBC Casts WBC Casts Urine Mucus Urine Trichomonas Urine Yeast Ur Yeast w Hyphae Urine Sperm Ur Oval Fat Bodies Micro UA Comment Ur Microscopic Review Urine Culture Comments Urine Collection Time Urine Comment Nasal Screen MRSA (PCR) Stl C.difficile DNA Amp St C. diff Tox Epid 027 Blood Type Blood Type Recheck Antibody Screen MTS Gel Crossmatch Blood Bank Comment 08/27/18 08/27/18 08/27/18 20:40 20:40 20:40 WBC RBC Hgb POC Hgb (Calc) Cancelled Hct POC Hct Cancelled MCV MCH MCHC RDW Plt Count MPV Prelim Diff (Auto) Neut % (Auto) Lymph % (Auto) Bond % (Auto) Eos % (Auto) Baso % (Auto) Neut # (Auto) Lymph # (Auto) Bond # (Auto) Eos # (Auto) Baso # (Auto) WBC Differential Seg Neuts % (Manual) Band Neuts % (Manual) Lymphocytes % (Manual) Abs Neuts (Manual) Differential Comment Platelet Estimate Platelet Morphology Pappenheimer Bodies PT INR APTT Puncture Site Right femoral Patient Temperature 98.6 O2 Saturation ABG pH ABG pCO2 ABG pO2 ABG HCO3 ABG O2 Content ABG Base Excess ABG Methemoglobin Ag Test VBG pH 7.18 L* VBG pCO2 29 L VBG pO2 41 H VBG HCO3 10 L* VBG O2 Saturation 53 L VBG O2 Content 3.7 L VBG Base Excess -16.6 L VBG Carboxyhemoglobin 1.1 VBG Methemoglobin 0.3 Hemoglobin 4.9 L* Carboxyhemoglobin O2 Delivery Device Ventilator Vent Setting Inspired O2 100 Critical Value Yes POC Sodium Cancelled Sodium POC Potassium Cancelled Potassium POC Chloride Cancelled Chloride Carbon Dioxide Anion Gap POC BUN Cancelled BUN Creatinine POC Creatinine Cancelled Estimated GFR POC Glucose Cancelled Random Glucose Lactic Acid Calcium Prot Corrected Calcium Phosphorus Magnesium Total Bilirubin AST ALT Alkaline Phosphatase B-Natriuretic Peptide Total Protein Albumin Ur Collection Type Urine Color Urine Clarity Urine pH Ur Specific [place] Urine Protein Urine Glucose (UA) Urine Ketones Urine Occult Blood Urine Nitrate Urine Bilirubin Urine Ictotest Urine Urobilinogen Ur Leukocyte Esterase Urine RBC Urine WBC Urine WBC Clumps Ur Squamous Epith Cells Ur Transition Epith Cell Ur Renal Epithelial Cell Calcium Carbonate Cryst Calcium Oxalate Crystal Leucine Crystals Cystine Crystals Uric Acid Crystals Triple Phos Crystals Cholesterol Crystals Tyrosine Crystals Amorphous Sediment Urine Bacteria Hyaline Casts Granular Casts Fine Granular Casts Coarse Granular Casts Waxy Casts RBC Casts WBC Casts Urine Mucus Urine Trichomonas Urine Yeast Ur Yeast w Hyphae Urine Sperm Ur Oval Fat Bodies Micro UA Comment Ur Microscopic Review Urine Culture Comments Urine Collection Time Urine Comment Nasal Screen MRSA (PCR) Stl C.difficile DNA Amp St C. diff Tox Epid 027 Blood Type A Negative Blood Type Recheck Not needed Antibody Screen Negative MTS Gel Crossmatch Blood Bank Comment 08/27/18 08/27/18 08/27/18 20:40 20:40 21:03 WBC RBC Hgb POC Hgb (Calc) Hct POC Hct MCV MCH MCHC RDW Plt Count MPV Prelim Diff (Auto) Neut % (Auto) Lymph % (Auto) Bond % (Auto) Eos % (Auto) Baso % (Auto) Neut # (Auto) Lymph # (Auto) Bond # (Auto) Eos # (Auto) Baso # (Auto) WBC Differential Seg Neuts % (Manual) Band Neuts % (Manual) Lymphocytes % (Manual) Abs Neuts (Manual) Differential Comment Platelet Estimate Platelet Morphology Pappenheimer Bodies PT INR APTT 91.2 H* Puncture Site Patient Temperature O2 Saturation ABG pH ABG pCO2 ABG pO2 ABG HCO3 ABG O2 Content ABG Base Excess ABG Methemoglobin Ag Test VBG pH VBG pCO2 VBG pO2 VBG HCO3 VBG O2 Saturation VBG O2 Content VBG Base Excess VBG Carboxyhemoglobin VBG Methemoglobin Hemoglobin Carboxyhemoglobin O2 Delivery Device Vent Setting Inspired O2 Critical Value POC Sodium Sodium 134 L POC Potassium Potassium 5.3 H POC Chloride Chloride 104 Carbon Dioxide 11.6 L Anion Gap 18 H POC BUN BUN 71 H Creatinine 4.01 H POC Creatinine Estimated GFR 11 L POC Glucose Random Glucose 112 H Lactic Acid Calcium 7.2 L* D Prot Corrected Calcium 8.9 Phosphorus Magnesium Total Bilirubin AST ALT Alkaline Phosphatase B-Natriuretic Peptide Total Protein 4.2 L D Albumin Ur Collection Type Urine Color Urine Clarity Urine pH Ur Specific [place] Urine Protein Urine Glucose (UA) Urine Ketones Urine Occult Blood Urine Nitrate Urine Bilirubin Urine Ictotest Urine Urobilinogen Ur Leukocyte Esterase Urine RBC Urine WBC Urine WBC Clumps Ur Squamous Epith Cells Ur Transition Epith Cell Ur Renal Epithelial Cell Calcium Carbonate Cryst Calcium Oxalate Crystal Leucine Crystals Cystine Crystals Uric Acid Crystals Triple Phos Crystals Cholesterol Crystals Tyrosine Crystals Amorphous Sediment Urine Bacteria Hyaline Casts Granular Casts Fine Granular Casts Coarse Granular Casts Waxy Casts RBC Casts WBC Casts Urine Mucus Urine Trichomonas Urine Yeast Ur Yeast w Hyphae Urine Sperm Ur Oval Fat Bodies Micro UA Comment Ur Microscopic Review Urine Culture Comments Urine Collection Time Urine Comment Nasal Screen MRSA (PCR) Stl C.difficile DNA Amp St C. diff Tox Epid 027 Blood Type Blood Type Recheck Antibody Screen MTS Gel Crossmatch See Detail Blood Bank Comment 08/27/18 08/27/18 08/27/18 21:10 21:51 23:45 WBC RBC Hgb POC Hgb (Calc) Hct POC Hct MCV MCH MCHC RDW Plt Count MPV Prelim Diff (Auto) Neut % (Auto) Lymph % (Auto) Bond % (Auto) Eos % (Auto) Baso % (Auto) Neut # (Auto) Lymph # (Auto) Bond # (Auto) Eos # (Auto) Baso # (Auto) WBC Differential Seg Neuts % (Manual) Band Neuts % (Manual) Lymphocytes % (Manual) Abs Neuts (Manual) Differential Comment Platelet Estimate Platelet Morphology Pappenheimer Bodies PT INR APTT Puncture Site Patient Temperature O2 Saturation ABG pH ABG pCO2 ABG pO2 ABG HCO3 ABG O2 Content ABG Base Excess ABG Methemoglobin Ag Test VBG pH VBG pCO2 VBG pO2 VBG HCO3 VBG O2 Saturation VBG O2 Content VBG Base Excess VBG Carboxyhemoglobin VBG Methemoglobin Hemoglobin Carboxyhemoglobin O2 Delivery Device Vent Setting Inspired O2 Critical Value POC Sodium Sodium POC Potassium Potassium POC Chloride Chloride Carbon Dioxide Anion Gap POC BUN BUN Creatinine POC Creatinine Estimated GFR POC Glucose Random Glucose Lactic Acid Calcium Prot Corrected Calcium Phosphorus Magnesium Total Bilirubin AST ALT Alkaline Phosphatase B-Natriuretic Peptide Total Protein Albumin Ur Collection Type Cancelled Urine Color Cancelled Urine Clarity Cancelled Urine pH Cancelled Ur Specific [place] Cancelled Urine Protein Cancelled Urine Glucose (UA) Cancelled Urine Ketones Cancelled Urine Occult Blood Cancelled Urine Nitrate Cancelled Urine Bilirubin Cancelled Urine Ictotest Cancelled Urine Urobilinogen Cancelled Ur Leukocyte Esterase Cancelled Urine RBC Cancelled Urine WBC Cancelled Urine WBC Clumps Cancelled Ur Squamous Epith Cells Cancelled Ur Transition Epith Cell Cancelled Ur Renal Epithelial Cell Cancelled Calcium Carbonate Cryst Cancelled Calcium Oxalate Crystal Cancelled Leucine Crystals Cancelled Cystine Crystals Cancelled Uric Acid Crystals Cancelled Triple Phos Crystals Cancelled Cholesterol Crystals Cancelled Tyrosine Crystals Cancelled Amorphous Sediment Cancelled Urine Bacteria Cancelled Hyaline Casts Cancelled Granular Casts Cancelled Fine Granular Casts Cancelled Coarse Granular Casts Cancelled Waxy Casts Cancelled RBC Casts Cancelled WBC Casts Cancelled Urine Mucus Cancelled Urine Trichomonas Cancelled Urine Yeast Cancelled Ur Yeast w Hyphae Cancelled Urine Sperm Cancelled Ur Oval Fat Bodies Cancelled Micro UA Comment Cancelled Ur Microscopic Review Cancelled Urine Culture Comments Cancelled Urine Collection Time Cancelled Urine Comment Cancelled Nasal Screen MRSA (PCR) Mrsa detected Stl C.difficile DNA Amp St C. diff Tox Epid 027 Blood Type Blood Type Recheck Antibody Screen MTS Gel Crossmatch Blood Bank Comment 08/27/18 08/28/18 08/28/18 23:45 00:00 00:15 WBC RBC Hgb POC Hgb (Calc) Hct POC Hct MCV MCH MCHC RDW Plt Count MPV Prelim Diff (Auto) Neut % (Auto) Lymph % (Auto) Bond % (Auto) Eos % (Auto) Baso % (Auto) Neut # (Auto) Lymph # (Auto) Bond # (Auto) Eos # (Auto) Baso # (Auto) WBC Differential Seg Neuts % (Manual) Band Neuts % (Manual) Lymphocytes % (Manual) Abs Neuts (Manual) Differential Comment Platelet Estimate Platelet Morphology Pappenheimer Bodies PT INR APTT Puncture Site Lt arm Patient Temperature 98.6 O2 Saturation ABG pH ABG pCO2 ABG pO2 ABG HCO3 ABG O2 Content ABG Base Excess ABG Methemoglobin Ag Test VBG pH 7.17 L* VBG pCO2 31 L VBG pO2 24 L* VBG HCO3 11 L* VBG O2 Saturation 30 L VBG O2 Content 4.5 L VBG Base Excess -16.3 L VBG Carboxyhemoglobin 0.4 VBG Methemoglobin 1.1 Hemoglobin 10.6 L Carboxyhemoglobin O2 Delivery Device Ventilator Vent Setting Prvc/ac Inspired O2 100 Critical Value Yes POC Sodium Sodium POC Potassium Potassium POC Chloride Chloride Carbon Dioxide Anion Gap POC BUN BUN Creatinine POC Creatinine Estimated GFR POC Glucose Random Glucose Lactic Acid 4.8 H* Calcium Prot Corrected Calcium Phosphorus Magnesium Total Bilirubin AST ALT Alkaline Phosphatase B-Natriuretic Peptide Total Protein Albumin Ur Collection Type Urine Color Urine Clarity Urine pH Ur Specific [place] Urine Protein Urine Glucose (UA) Urine Ketones Urine Occult Blood Urine Nitrate Urine Bilirubin Urine Ictotest Urine Urobilinogen Ur Leukocyte Esterase Urine RBC Urine WBC Urine WBC Clumps Ur Squamous Epith Cells Ur Transition Epith Cell Ur Renal Epithelial Cell Calcium Carbonate Cryst Calcium Oxalate Crystal Leucine Crystals Cystine Crystals Uric Acid Crystals Triple Phos Crystals Cholesterol Crystals Tyrosine Crystals Amorphous Sediment Urine Bacteria Hyaline Casts Granular Casts Fine Granular Casts Coarse Granular Casts Waxy Casts RBC Casts WBC Casts Urine Mucus Urine Trichomonas Urine Yeast Ur Yeast w Hyphae Urine Sperm Ur Oval Fat Bodies Micro UA Comment Ur Microscopic Review Urine Culture Comments Urine Collection Time Urine Comment Nasal Screen MRSA (PCR) Stl C.difficile DNA Amp Negative St C. diff Tox Epid 027 Negative Blood Type Blood Type Recheck Antibody Screen MTS Gel Crossmatch Blood Bank Comment 08/28/18 08/28/18 08/28/18 04:52 05:10 05:10 WBC 13.7 H RBC 3.85 L Hgb 11.6 D POC Hgb (Calc) Hct 34.0 L POC Hct MCV 88.3 D MCH 30.0 MCHC 34.0 RDW 16.4 Plt Count 361 MPV 8.0 Prelim Diff (Auto) Manual diff required Neut % (Auto) Lymph % (Auto) Bond % (Auto) Eos % (Auto) Baso % (Auto) Neut # (Auto) Lymph # (Auto) Bond # (Auto) Eos # (Auto) Baso # (Auto) WBC Differential Manual diff final Seg Neuts % (Manual) 90 H Band Neuts % (Manual) 7 H Lymphocytes % (Manual) 3 L Abs Neuts (Manual) 13.3 H Differential Comment . Platelet Estimate Normal Platelet Morphology Normal Pappenheimer Bodies Present H PT 15.3 H INR 1.5 APTT 53.9 H D Puncture Site Left radial Patient Temperature 98.6 O2 Saturation 98 ABG pH 7.42 ABG pCO2 21 L* ABG pO2 190 H ABG HCO3 13 L* ABG O2 Content 16.1 ABG Base Excess -10.3 L ABG Methemoglobin 1.1 Ag Test Present VBG pH VBG pCO2 VBG pO2 VBG HCO3 VBG O2 Saturation VBG O2 Content VBG Base Excess VBG Carboxyhemoglobin VBG Methemoglobin Hemoglobin 11.5 L Carboxyhemoglobin 0.9 O2 Delivery Device Ventilator Vent Setting Prvc/ac Inspired O2 90 Critical Value Yes POC Sodium Sodium POC Potassium Potassium POC Chloride Chloride Carbon Dioxide Anion Gap POC BUN BUN Creatinine POC Creatinine Estimated GFR POC Glucose Random Glucose Lactic Acid Calcium Prot Corrected Calcium Phosphorus Magnesium Total Bilirubin AST ALT Alkaline Phosphatase B-Natriuretic Peptide Total Protein Albumin Ur Collection Type Urine Color Urine Clarity Urine pH Ur Specific [place] Urine Protein Urine Glucose (UA) Urine Ketones Urine Occult Blood Urine Nitrate Urine Bilirubin Urine Ictotest Urine Urobilinogen Ur Leukocyte Esterase Urine RBC Urine WBC Urine WBC Clumps Ur Squamous Epith Cells Ur Transition Epith Cell Ur Renal Epithelial Cell Calcium Carbonate Cryst Calcium Oxalate Crystal Leucine Crystals Cystine Crystals Uric Acid Crystals Triple Phos Crystals Cholesterol Crystals Tyrosine Crystals Amorphous Sediment Urine Bacteria Hyaline Casts Granular Casts Fine Granular Casts Coarse Granular Casts Waxy Casts RBC Casts WBC Casts Urine Mucus Urine Trichomonas Urine Yeast Ur Yeast w Hyphae Urine Sperm Ur Oval Fat Bodies Micro UA Comment Ur Microscopic Review Urine Culture Comments Urine Collection Time Urine Comment Nasal Screen MRSA (PCR) Stl C.difficile DNA Amp St C. diff Tox Epid 027 Blood Type Blood Type Recheck Antibody Screen MTS Gel Crossmatch Blood Bank Comment 08/28/18 08/28/1818 05:10 10:31 12:10 WBC RBC Hgb POC Hgb (Calc) Hct POC Hct MCV MCH MCHC RDW Plt Count MPV Prelim Diff (Auto) Neut % (Auto) Lymph % (Auto) Bond % (Auto) Eos % (Auto) Baso % (Auto) Neut # (Auto) Lymph # (Auto) Bond # (Auto) Eos # (Auto) Baso # (Auto) WBC Differential Seg Neuts % (Manual) Band Neuts % (Manual) Lymphocytes % (Manual) Abs Neuts (Manual) Differential Comment Platelet Estimate Platelet Morphology Pappenheimer Bodies PT INR APTT Puncture Site Patient Temperature O2 Saturation ABG pH ABG pCO2 ABG pO2 ABG HCO3 ABG O2 Content ABG Base Excess ABG Methemoglobin Ag Test VBG pH VBG pCO2 VBG pO2 VBG HCO3 VBG O2 Saturation VBG O2 Content VBG Base Excess VBG Carboxyhemoglobin VBG Methemoglobin Hemoglobin Carboxyhemoglobin O2 Delivery Device Vent Setting Inspired O2 Critical Value POC Sodium Sodium 139 140 POC Potassium Potassium 3.4 L D 3.2 L POC Chloride Chloride 107 106 Carbon Dioxide 13.6 L 17.9 L Anion Gap 18 H 16 H POC BUN BUN 55 H 51 H Creatinine 2.94 H 2.99 H POC Creatinine Estimated GFR 16 L 15 L POC Glucose Random Glucose 295 H D 152 H D Lactic Acid 5.0 H* Calcium 5.4 L* D 5.5 L* Prot Corrected Calcium 6.9 L* D 6.8 L* D Phosphorus 4.7 Magnesium 1.2 L Total Bilirubin 1.1 H AST 47 H ALT 32 Alkaline Phosphatase 129 H B-Natriuretic Peptide Total Protein 3.7 L 4.2 L Albumin 0.8 L Ur Collection Type Urine Color Urine Clarity Urine pH Ur Specific [place] Urine Protein Urine Glucose (UA) Urine Ketones Urine Occult Blood Urine Nitrate Urine Bilirubin Urine Ictotest Urine Urobilinogen Ur Leukocyte Esterase Urine RBC Urine WBC Urine WBC Clumps Ur Squamous Epith Cells Ur Transition Epith Cell Ur Renal Epithelial Cell Calcium Carbonate Cryst Calcium Oxalate Crystal Leucine Crystals Cystine Crystals Uric Acid Crystals Triple Phos Crystals Cholesterol Crystals Tyrosine Crystals Amorphous Sediment Urine Bacteria Hyaline Casts Granular Casts Fine Granular Casts Coarse Granular Casts Waxy Casts RBC Casts WBC Casts Urine Mucus Urine Trichomonas Urine Yeast Ur Yeast w Hyphae Urine Sperm Ur Oval Fat Bodies Micro UA Comment Ur Microscopic Review Urine Culture Comments Urine Collection Time Urine Comment Nasal Screen MRSA (PCR) Stl C.difficile DNA Amp St C. diff Tox Epid 027 Blood Type Blood Type Recheck Antibody Screen MTS Gel Crossmatch Blood Bank Comment 08/28/18 12:10 WBC 12.9 H RBC 2.78 L Hgb 8.6 L D POC Hgb (Calc) Hct 24.4 L POC Hct MCV 87.6 MCH 30.9 MCHC 35.3 RDW 17.2 Plt Count 291 MPV 8.0 Prelim Diff (Auto) Neut % (Auto) 86.2 H Lymph % (Auto) 10.3 Bond % (Auto) 2.7 Eos % (Auto) 0.7 Baso % (Auto) 0.1 Neut # (Auto) 11.1 H Lymph # (Auto) 1.3 Bond # (Auto) 0.3 Eos # (Auto) 0.1 Baso # (Auto) 0.0 WBC Differential . Seg Neuts % (Manual) Band Neuts % (Manual) Lymphocytes % (Manual) Abs Neuts (Manual) Differential Comment Auto diff final Platelet Estimate Platelet Morphology Pappenheimer Bodies PT INR APTT Puncture Site Patient Temperature O2 Saturation ABG pH ABG pCO2 ABG pO2 ABG HCO3 ABG O2 Content ABG Base Excess ABG Methemoglobin Ag Test VBG pH VBG pCO2 VBG pO2 VBG HCO3 VBG O2 Saturation VBG O2 Content VBG Base Excess VBG Carboxyhemoglobin VBG Methemoglobin Hemoglobin Carboxyhemoglobin O2 Delivery Device Vent Setting Inspired O2 Critical Value POC Sodium Sodium POC Potassium Potassium POC Chloride Chloride Carbon Dioxide Anion Gap POC BUN BUN Creatinine POC Creatinine Estimated GFR POC Glucose Random Glucose Lactic Acid Calcium Prot Corrected Calcium Phosphorus Magnesium Total Bilirubin AST ALT Alkaline Phosphatase B-Natriuretic Peptide Total Protein Albumin Ur Collection Type Urine Color Urine Clarity Urine pH Ur Specific [place] Urine Protein Urine Glucose (UA) Urine Ketones Urine Occult Blood Urine Nitrate Urine Bilirubin Urine Ictotest Urine Urobilinogen Ur Leukocyte Esterase Urine RBC Urine WBC Urine WBC Clumps Ur Squamous Epith Cells Ur Transition Epith Cell Ur Renal Epithelial Cell Calcium Carbonate Cryst Calcium Oxalate Crystal Leucine Crystals Cystine Crystals Uric Acid Crystals Triple Phos Crystals Cholesterol Crystals Tyrosine Crystals Amorphous Sediment Urine Bacteria Hyaline Casts Granular Casts Fine Granular Casts Coarse Granular Casts Waxy Casts RBC Casts WBC Casts Urine Mucus Urine Trichomonas Urine Yeast Ur Yeast w Hyphae Urine Sperm Ur Oval Fat Bodies Micro UA Comment Ur Microscopic Review Urine Culture Comments Urine Collection Time Urine Comment Nasal Screen MRSA (PCR) Stl C.difficile DNA Amp St C. diff Tox Epid 027 Blood Type Blood Type Recheck Antibody Screen MTS Gel Crossmatch Blood Bank Comment - Imaging Impressions Chest X-Ray 08/27/18 21:01 CONCLUSION: 1. ET tube tip is within 2 cm of the fred and needs to be withdrawn 1 cm. 2. Patchy infiltrates in the left lower lung. <Oanh Felipe - Last Filed: 08/28/18 18:58> Assessment and Plan (1) Acute blood loss anemia Status: Acute Code(s): D62 - Acute posthemorrhagic anemia (2) GI bleed Status: Acute Code(s): K92.2 - Gastrointestinal hemorrhage, unspecified - Plan This patient is a 73-year-old female who presented to the emergency room at [facility] on 08/27/2018 for evaluation of altered mental status. Patient was brought in from a senior living facility with report that she had been experiencing nausea, vomiting and diarrhea for 3 days. Patient has history of GI bleed, and GERD. Patient also has history of hypertension, hyperlipidemia, chronic kidney disease atrial fibrillation on Eliquis and CHF. This patient was intubated in the emergency room. Upon consultation, patient is intubated via ET tube to ventilator. Dopamine, fentanyl, vasopressin, norepinephrine infusions being administered. Protonix IV twice daily. On admission hemoglobin was noted to be 6.5 and 20. Patient then received 3 units of packed cells. 08/28/2018 hemoglobin 11.6 and 34 INR 1.5. 08/28/2018 at 1210 hemoglobin 8.6 hematocrit 24.4. NG in place to low intermittent wall suction with small amount of clear to tea colored drainage. No obvious bleeding noted or reported. Patient has been transfused with 4 units of fresh frozen plasma and 3 units of packed RBCs. Our service has been consulted to evaluate patient for GI bleeding. GI bleed 07/21/2018 colonoscopy revealed the following findings: 1. Moderate diverticulosis was noted in the sigmoid colon 2. Circumferential diffuse colitis was found in the transverse colon, descending colon, and sigmoid colon; The mucosa was congested, edematous, erythematous, friable, nodular and had granularity; multiple biopsies were performed using cold forceps 3. Retroflexed views revealed internal hemorrhoids 4. Retroflexed views revealed small internal hemorrhoids 5. Revealed external hemorrhoids 08/27/2018 upon admission hemoglobin 6.5 hematocrit 20.4, 08/28/2018 hemoglobin 11.6 hematocrit 34, hemoglobin 8.6 hematocrit 24 Plan -NG tube to low intermittent wall suction -N.p.o. -Monitor for bleeding -Monitor hemoglobin and hematocrit -Patient will require endoscopic evaluation when stable -PPI -Avoid anticoagulants -Supportive care -Further recommendations to follow based on patient status and findings This patient has been seen by myself and Dr. Felipe and this note is written on his behalf - Attending Attestation Dr. Felipe <Xochitl Oakes - Last Filed: 08/28/18 12:59> (1) Acute blood loss anemia Status: Acute Code(s): D62 - Acute posthemorrhagic anemia (2) GI bleed Status: Acute Code(s): K92.2 - Gastrointestinal hemorrhage, unspecified - Plan Patient was seen and examined, patient is septic intubated, unstable to have any procedure done at this point, we will monitor hemoglobin and give her packed RBC we will do upper endoscopy once stable <Oanh Felipe - Last Filed: 08/28/18 18:58>
--- NOTE | 2018-08-28 15:27 | ECG ---
Date Performed: 08/27/2018 Time Performed: 21:50:51 PTAGE: 73 years EKG: Sinus rhythm WITH OCCASIONAL SUPRAVENTRICULAR PREMATURE COMPLEXES LOW QRS VOLTAGE IN PRECORDIAL LEADS BORDERLINE ECG NO PREVIOUS TRACING Poor Quality tracing. Repeat for more specific intepretation DOCTOR: Soraya Phillips Interpretating Date/Time 08/28/2018 15:25:42
--- NOTE | 2018-08-28 16:26 | P.CONPAL ---
Consult Service: Palliative Care Requesting Physician: Omero Grewal Reason for Consult: a. To assist with evaluation and management of symptoms including: dyspnea, pain. b. To assist medical decision maker(s) with: better understanding of current medical conditions; weighing benefits/burdens of medical treatment options; making medical treatment decisions. Primary Care Provider: Do Sarah Barreto History of Present Illness History of Present Illness: Ms. Urena is a 73 year old female with past medical history of atrial fibrillation on Eliquis, chronic kidney disease stage III, GERD, hyperlipidemia , hypertension, elevated BMI, urinary tract obstruction by kidney stone, history of GI bleed and CHF. Patient presented to [facility] emergency department on 08/27/18 for evaluation of altered mental status. Notes indicate patient had a altered mental status for 3 days prior to presentation. Upon EMS arrival the patient was reportedly lethargic but arousable. correction staff reported to EMS that the patient had nausea, vomiting, diarrhea for 3 days. Patient was intubated in the emergency department for airway protection, right femoral central line was placed. Initial findings included: * Vital signs: Temp 92.5, pulse 55, respiration 20, blood pressure 100/60 * WBC 11.1, hemoglobin 6.5, hematocrit 20.4, platelet count 418 * Sodium 137, potassium 5.1, chloride 108, carbon dioxide 10.4, BUN 72, creatinine 3.59, calcium 6.2 * Total bilirubin 0.2, AST 29, ALT 23, alkaline phosphatase 98 * Total protein 4.2 albumin 0.6 * Lactic acid 5.7 * PT 23.8, INR 2.4 * Chest x-ray -patchy infiltrates left lower lung, ET tube * C. difficile negative * Nasal screen MRSA detected Patient was admitted to ICU with anemia possible GI bleed, sepsis, metabolic acidosis, severe malnutrition, acute on chronic kidney disease, respiratory failure, hypotension. Gastroenterology, Dr. Felipe was consulted with recommendation for NG tube to suction, possible endoscopy when stable. Patient remains critically ill in ICU on [facility] vent despite aggressive measures she continues to decline. Dr. Grewal spoke with medical POA, Meggan Johnson who elected alternate CODE (intubation and ACLS only) and NO dialysis. Palliative care was consulted to assist with further clarification of goals of medical treatment. Function/Cognitive Trajectory: Patient has had significant trajectory of decline dating back to June 13, 2018. She has had multiple hospitalizations, rehab stay. Her father recently at the age of 97. He was her only immediate family. Her cousin reports that she has had trajectory of decline since that time. Review of Systems unobtainable due to endotracheal tube PMFSH - History History Provided By: Medical Record, Power Distributor / EMT - Medical History Medical History: Medical History (Last Updated 08/28/18 @ 08:27 by Tasia Villareal) History of MRSA infection Onset Date: ~08/27/18 Atrial fibrillation CKD (chronic kidney disease) stage 3, GFR 30-59 ml/min GERD (gastroesophageal reflux disease) HLD (hyperlipidemia) HTN (hypertension) Obesity, morbid, BMI 40.0-49.9 Urinary tract obstruction by kidney stone - Surgical History Surgical History: Surgical History (Last Reviewed 08/27/18 @ 20:32 by Rasheeda Cruz) History of lithotripsy History of ureter stent Hx of cystoscopy - Family History Family History: Family History (Last Updated 08/28/18 @ 16:44 by Marely Oro) Father Stroke - Social History I have reviewed the patient's Social History: Yes - Tobacco History Second Hand Smoke Exposure: No Smoking Status: Never smoker - Alcohol History How Often Do You Have a Drink Containing Alcohol: Never - Substance Use History Substance History: No History of Abuse - Travel History Recent Travel in the [place] Within the Last 8 Weeks: No Recent Travel Out of the Country Within the Last 8 Weeks: No - Immunization History Tetanus Immunization: Unsure Medications and Allergies Active Medications: Active Medications Acetaminophen (Tylenol) 650 mg PO Q6H PRN PRN Reason: PAIN 1-5 AND/OR FEVER >101F Al Hydroxide/Mg Hydroxide (Milk Of Colette Liadryan) 30 ml PO Q12H PRN PRN Reason: Mild Constipation Albuterol (Duoneb Neb (Prn)) 1 ampul NEB Q2HR NEB PRN PRN Reason: WHEEZING Bisacodyl (Dulcolax Supp) 10 mg RECTAL DAILY PRN PRN Reason: SEVERE CONSITIPATION Chlorhexidine Gluconate (Peridex 0.12% Oral Kit) 15 ml OROPHARYNG BID@0800, 2000 [facility] Last Admin: 08/28/18 10:15 Dose: 15 ml Chlorhexidine Gluconate (Chlorhexidine 2% Cloth) 3 pack TOPICAL DAILY@0400 [facility] Stop: 09/02/18 03:59 Last Admin: 08/28/18 04:04 Dose: 3 pack Chlorhexidine Gluconate (Chlorhexidine 2% Cloth) 3 pack TOPICAL DAILY@0400 PRN PRN Reason: Extra cloth needed Stop: 09/02/18 03:59 Dopamine HCl/Dextrose (Dopamine 800 Mg/500 Ml Premix) 800 mg in 500 mls @ 16.875 mls/hr IV.CONT TITRATE PRN; Protocol PRN Reason: Per Protocol Last Titration: 08/28/18 06:30 Dose: 0 mcg/kg/min, 0 mls/hr Sodium Chloride (Ns Inj) 1,000 mls @ 150 mls/hr IV.CONT .Q6H40M [place] Last Admin: 08/28/18 13:43 Dose: Not Given Propofol (Diprivan 1000 Mg/100 Ml Inj) 1,000 mg in 100 mls @ 4.5 mls/hr IV.CONT TITRATE PRN; Protocol PRN Reason: Per Protocol Metronidazole/Sodium Chloride (Flagyl 500 Mg Inj) 100 mls @ 100 mls/hr IV.SIG Q6H [place] Last Infusion: 08/28/18 11:15 Dose: Infused Fentanyl (Fentanyl 10 Mcg/Ml Premix Drip) 2,500 mcg in 250 mls @ 5 mls/hr IV.SIG TITRATE PRN; Protocol PRN Reason: Per Protocol Last Admin: 08/28/18 00:48 Dose: 50 mcg/hr, 5 mls/hr Midazolam HCl (Versed Inj) 50 mg in 50 mls @ 2 mls/hr IV.CONT TITRATE PRN; Protocol PRN Reason: Per Protocol Last Titration: 08/28/18 06:45 Dose: 0 mg/hr, 0 mls/hr Vasopressin 40 unit/ Dextrose 100 mls @ 1.5 mls/hr IV.CONT CONT [place]; Protocol Last Admin: 08/28/18 12:48 Dose: 0.04 units/min, 6 mls/hr Sodium Bicarbonate 150 meq/ (Sterile Water) 1,000 mls @ 150 mls/hr IV.CONT .Q6H40M [place] Last Admin: 08/28/18 14:05 Dose: 150 mls/hr Levofloxacin/Dextrose (Levaquin 500 Mg Premix Inj) 500 mg in 100 mls @ 100 mls/ hr IV.SIG Q48H [place] Norepinephrine Bitartrate 4 mg (/ Sodium Chloride) 250 mls @ 7.5 mls/hr IV.SIG TITRATE PRN; Protocol PRN Reason: Per Protocol Last Admin: 08/28/18 15:08 Dose: 30 mcg/min, 112.5 mls/hr Lactulose (Lactulose Liq) 30 ml PO DAILY PRN PRN Reason: SEVERE CONSITIPATION Midazolam HCl (Versed Inj) 2 mg IV.PUSH Q1H PRN PRN Reason: SEDATION Miscellaneous Medication () 1 each OROPHARYNG 0000,0400,1200,1600 [facility] Last Admin: 08/28/18 13:43 Dose: 1 each Morphine Sulfate (Morphine Inj) 2 mg IV.PUSH Q2H PRN PRN Reason: PAIN SCALE 6 TO 10 Ondansetron HCl (Zofran Inj) 4 mg IV.PUSH Q6H PRN PRN Reason: NAUSEA OR VOMITING Pantoprazole Sodium (Protonix Inj) 40 mg IV.PUSH Q12H [facility] Last Admin: 08/28/18 10:14 Dose: 40 mg Senna/Docusate Sodium (Luana-Colace) 1 tab PO BID [facility] Last Admin: 08/28/18 10:15 Dose: Not Given Sennosides (Senokot) 17.2 mg PO Q12H PRN PRN Reason: Moderate Constipation Sodium Chloride (Ns Flush) 2 ml IV.FLUSH PRN PRN PRN Reason: FLUSH AFTER USING IV ACCESS Sodium Chloride (Ns Flush) 2 ml IV.FLUSH BID [facility] Last Admin: 08/28/18 10:15 Dose: 2 ml Terbutaline Sulfate (Brethine Inj) 1 mg SQ UNSCH PRN PRN Reason: For Extravasation Allergies Allergy/AdvReac Type Severity Reaction Status Date / Time erythromycin base Allergy Diarrhea Verified 08/13/18 09:40 Home Medications Medication Instructions Recorded Confirmed Type cholecalciferol (vitamin D3) 2,000 unit PO DAILY 06/15/18 08/27/18 History [Vitamin D3] vit C,F-[id number]-lutein-zeaxan 1 tab PO BID 06/15/18 08/27/18 History [PreserVision AREDS-2] zinc sulfate 220 mg PO DAILY 08/05/18 08/27/18 History Advance Directives Healthcare Surrogate: Yes Health Care Surrogate Name and Number: Meggan Johnson, cousin: [phone] Today's verbally stated goals: Patient is not capacitated to make her own healthcare decisions, unlikely she will regain capacity. Family/friends goals: Family desires continued aggressive care short of alternate CODE STATUS intubation and ACLS only. Family does not want dialysis. Ethical and Legal Issues: Patient is not capacitated to make her own healthcare decisions, unlikely she will regain capacity. Medical power of commercial real estate attorney, Meggan Johnson (cousin). Physical Exam Vital Signs: Vital Signs - 24 hr 08/27/18 19:40 08/27/18 19:55 08/27/18 21:12 Temperature 92.5 F L 92.5 F L Pulse Rate 55 L 55 L 78 Respiratory Rate 20 20 18 Blood Pressure 100/60 88/44 L 118/85 Pulse Oximetry 95 96 94 L 08/27/18 21:58 08/27/18 22:22 08/27/18 22:38 Temperature 91.8 F L 91.9 F L 91.8 F L Pulse Rate 87 92 H 98 H Respiratory Rate 18 18 19 Blood Pressure 73/51 L 80/41 L 91/51 L Pulse Oximetry 94 L 97 97 08/27/18 22:50 08/27/18 23:00 08/27/18 23:05 Temperature Pulse Rate 93 H Respiratory Rate 19 Blood Pressure 115/51 L 108/84 Pulse Oximetry 96 100 08/27/18 23:06 08/27/18 23:12 08/27/18 23:15 Temperature 92.1 F L Pulse Rate 96 H 106 H Respiratory Rate 28 H 22 Blood Pressure Pulse Oximetry 100 08/27/18 23:16 08/27/18 23:19 08/27/18 23:30 Temperature 92.1 F L 92.3 F L Pulse Rate 91 H 86 103 H Respiratory Rate 24 18 23 Blood Pressure 112/83 121/56 L Pulse Oximetry 97 08/27/18 23:40 08/27/18 23:42 08/27/18 23:43 Temperature 92.5 F L 92.5 F L Pulse Rate 101 H 101 H Respiratory Rate 24 29 H 27 H Blood Pressure 74/55 L 76/61 L Pulse Oximetry 100 08/27/18 23:45 08/27/18 23:48 08/27/18 23:52 Temperature 92.5 F L 92.7 F L 92.7 F L Pulse Rate 103 H 101 H 99 H Respiratory Rate 25 H 25 H 24 Blood Pressure 135/73 121/55 L Pulse Oximetry 75 L 90 L 08/27/18 23:57 08/28/18 00:00 08/28/18 00:05 Temperature 92.5 F L 92.5 F L 92.3 F L Pulse Rate 95 H 95 H 95 H Respiratory Rate 24 26 H 22 Blood Pressure 126/77 108/65 121/83 Pulse Oximetry 94 L 92 L 85 L 08/28/18 00:10 08/28/18 00:15 08/28/18 00:20 Temperature 92.3 F L 92.3 F L 92.3 F L Pulse Rate 94 H 94 H 92 H Respiratory Rate 19 18 19 Blood Pressure 127/71 106/71 110/67 Pulse Oximetry 87 L 100 08/28/18 00:30 08/28/18 00:40 08/28/18 00:45 Temperature 92.3 F L 92.5 F L 92.7 F L Pulse Rate 94 H 97 H 96 H Respiratory Rate 20 19 19 Blood Pressure 99/57 L 110/51 L Pulse Oximetry 97 100 100 08/28/18 00:50 08/28/18 01:00 08/28/18 01:09 Temperature 92.7 F L 92.8 F L 93.0 F L Pulse Rate 95 H 95 H 96 H Respiratory Rate 19 18 20 Blood Pressure 113/72 108/72 113/79 Pulse Oximetry 100 99 99 08/28/18 01:11 08/28/18 01:15 08/28/18 01:16 Temperature 93.0 F L 93.2 F L 93.2 F L Pulse Rate 90 100 H 104 H Respiratory Rate 17 14 16 Blood Pressure 114/66 117/68 Pulse Oximetry 99 99 99 08/28/18 01:25 08/28/18 01:30 08/28/18 01:31 Temperature 93.2 F L 93.4 F L 93.4 F L Pulse Rate 99 H 105 H 100 H Respiratory Rate 14 14 14 Blood Pressure 118/68 116/70 Pulse Oximetry 99 99 99 08/28/18 01:45 08/28/18 01:46 08/28/18 02:00 Temperature 93.6 F L 93.6 F L 93.7 F L Pulse Rate 106 H 106 H 109 H Respiratory Rate 14 14 14 Blood Pressure 124/60 Pulse Oximetry 99 99 99 08/28/18 02:01 08/28/18 02:15 08/28/18 02:16 Temperature 93.7 F L 94.1 F L 94.1 F L Pulse Rate 108 H 109 H 108 H Respiratory Rate 14 14 14 Blood Pressure 111/70 103/50 L Pulse Oximetry 99 98 98 08/28/18 02:30 08/28/18 02:31 08/28/18 02:45 Temperature 94.3 F L 94.3 F L 94.5 F L Pulse Rate 110 H 110 H 108 H Respiratory Rate 14 14 14 Blood Pressure 109/51 L Pulse Oximetry 99 99 99 08/28/18 02:46 08/28/18 03:00 08/28/18 03:01 Temperature 94.5 F L 94.8 F L 94.8 F L Pulse Rate 109 H 108 H 107 H Respiratory Rate 14 14 14 Blood Pressure 98/67 L 121/64 Pulse Oximetry 99 99 99 08/28/18 03:15 08/28/18 03:20 08/28/18 03:30 Temperature 95.0 F L 95.0 F L 95.2 F L Pulse Rate 108 H 109 H 107 H Respiratory Rate 14 14 14 Blood Pressure 158/112 H 111/58 L Pulse Oximetry 97 97 08/28/18 03:38 08/28/18 03:45 08/28/18 03:53 Temperature 95.4 F L 95.4 F L 95.5 F L Pulse Rate 109 H 109 H 110 H Respiratory Rate 14 14 14 Blood Pressure 103/61 105/73 Pulse Oximetry 98 98 98 08/28/18 03:59 08/28/18 04:00 08/28/18 04:12 Temperature 95.5 F L 95.7 F L Pulse Rate 111 H 113 H Respiratory Rate 14 14 18 Blood Pressure 96/55 L Pulse Oximetry 98 98 97 08/28/18 04:15 08/28/18 04:23 08/28/18 04:30 Temperature 95.7 F L 95.9 F L 95.9 F L Pulse Rate 112 H 109 H 110 H Respiratory Rate 14 14 14 Blood Pressure 107/73 Pulse Oximetry 99 100 98 08/28/18 04:38 08/28/18 04:45 08/28/18 04:53 Temperature 96.1 F L 96.1 F L 96.3 F L Pulse Rate 111 H 112 H 110 H Respiratory Rate 14 14 14 Blood Pressure 122/63 89/53 L Pulse Oximetry 99 99 98 08/28/18 05:00 08/28/18 05:05 08/28/18 05:15 Temperature 96.4 F L 96.4 F L 96.6 F L Pulse Rate 111 H 112 H 113 H Respiratory Rate 15 14 14 Blood Pressure 110/67 Pulse Oximetry 97 97 97 08/28/18 05:17 08/28/18 05:26 08/28/18 05:30 Temperature 96.6 F L 96.6 F L 96.8 F L Pulse Rate 113 H 114 H 114 H Respiratory Rate 14 14 14 Blood Pressure 106/55 L 111/49 L Pulse Oximetry 97 97 97 08/28/18 05:45 08/28/18 06:00 08/28/18 06:15 Temperature 96.8 F L 97.0 F L 97.2 F L Pulse Rate 115 H 115 H 115 H Respiratory Rate 14 14 14 Blood Pressure 179/104 H Pulse Oximetry 97 97 95 08/28/18 06:18 08/28/18 06:23 08/28/18 06:25 Temperature 97.2 F L 97.2 F L 97.3 F L Pulse Rate 114 H 113 H 113 H Respiratory Rate 20 14 14 Blood Pressure 64/44 L 53/30 L 55/31 L Pulse Oximetry 95 98 95 08/28/18 06:26 08/28/18 06:28 08/28/18 06:30 Temperature 97.3 F L 97.3 F L 97.3 F L Pulse Rate 112 H 114 H 116 H Respiratory Rate 14 18 14 Blood Pressure 54/37 L 95/45 L 79/45 L Pulse Oximetry 96 97 96 08/28/18 06:33 08/28/18 06:38 08/28/18 06:45 Temperature 97.3 F L 97.3 F L 97.3 F L Pulse Rate 119 H 123 H 122 H Respiratory Rate 14 14 14 Blood Pressure 97/42 L 113/49 L 102/68 Pulse Oximetry 96 100 98 08/28/18 06:48 08/28/18 06:56 08/28/18 06:58 Temperature 97.3 F L 97.3 F L 97.3 F L Pulse Rate 121 H 115 H 114 H Respiratory Rate 14 14 14 Blood Pressure 94/42 L 95/48 L 73/50 L Pulse Oximetry 98 98 98 08/28/18 07:00 08/28/18 07:06 08/28/18 07:15 Temperature 97.3 F L 97.3 F L 97.3 F L Pulse Rate 114 H 109 H 103 H Respiratory Rate 15 12 16 Blood Pressure 136/98 H Pulse Oximetry 98 99 100 08/28/18 07:17 08/28/18 07:30 08/28/18 07:45 Temperature 97.3 F L 97.3 F L 97.5 F L Pulse Rate 102 H 94 H 91 H Respiratory Rate 16 23 20 Blood Pressure 64/38 L 104/66 Pulse Oximetry 100 99 96 08/28/18 08:00 08/28/18 08:07 08/28/18 08:15 Temperature 97.5 F L 97.5 F L 97.5 F L Pulse Rate 87 86 85 Respiratory Rate 15 16 15 Blood Pressure 177/77 H 209/181 H Pulse Oximetry 96 96 97 08/28/18 08:30 08/28/18 08:45 08/28/18 08:52 Temperature 97.5 F L 97.5 F L 97.5 F L Pulse Rate 85 85 85 Respiratory Rate 16 15 16 Blood Pressure 95/56 L Pulse Oximetry 96 96 97 08/28/18 08:56 08/28/18 09:00 08/28/18 09:03 Temperature 97.7 F 97.5 F L 97.5 F L Pulse Rate 84 85 84 Respiratory Rate 15 15 15 Blood Pressure 95/56 L 83/44 L Pulse Oximetry 97 99 100 08/28/18 09:15 08/28/18 09:25 08/28/18 09:28 Temperature 97.5 F L 97.5 F L Pulse Rate 83 82 Respiratory Rate 15 14 14 Blood Pressure 92/42 L Pulse Oximetry 94 L 93 L 92 L 08/28/18 09:30 08/28/18 09:40 08/28/18 09:42 Temperature 97.3 F L 97.3 F L 97.2 F L Pulse Rate 82 81 81 Respiratory Rate 14 14 14 Blood Pressure 85/41 L 103/59 L Pulse Oximetry 94 L 94 L 93 L 11/16/18 09:45 08/28/18 09:55 08/28/18 10:00 Temperature 97.2 F L 97.2 F L 97.0 F L Pulse Rate 81 80 79 Respiratory Rate 14 14 14 Blood Pressure 93/44 L Pulse Oximetry 92 L 92 L 92 L 08/28/18 10:06 08/28/18 10:10 08/28/18 10:15 Temperature 97 F L 96.8 F L 96.8 F L Pulse Rate 79 79 79 Respiratory Rate 14 14 14 Blood Pressure 93/44 L 95/45 L Pulse Oximetry 96 94 L 96 08/28/18 10:25 08/28/18 10:30 08/28/18 10:40 Temperature 96.6 F L 96.6 F L 96.6 F L Pulse Rate 88 81 81 Respiratory Rate 19 14 16 Blood Pressure 83/50 L 114/90 Pulse Oximetry 99 100 100 08/28/18 10:45 08/28/18 11:00 08/28/18 11:06 Temperature 96.4 F L 96.3 F L 96.3 F L Pulse Rate 81 82 82 Respiratory Rate 14 15 14 Blood Pressure 102/42 L Pulse Oximetry 100 99 99 08/28/18 11:15 08/28/18 11:17 08/28/18 11:30 Temperature 96.1 F L 96.3 F L 96.1 F L Pulse Rate 80 80 81 Respiratory Rate 14 13 14 Blood Pressure 102/42 L Pulse Oximetry 100 99 99 08/28/18 11:45 08/28/18 11:58 08/28/18 12:00 Temperature 95.9 F L 96.1 F L 95.9 F L Pulse Rate 81 81 82 Respiratory Rate 14 14 14 Blood Pressure Pulse Oximetry 99 99 99 08/28/18 12:05 08/28/18 12:15 08/28/18 12:30 Temperature 95.9 F L 96.1 F L 96.1 F L Pulse Rate 88 83 85 Respiratory Rate 14 14 14 Blood Pressure 97/54 L 98/47 L 92/53 L Pulse Oximetry 98 100 100 08/28/18 12:45 08/28/18 13:00 08/28/18 13:15 Temperature 96.1 F L 96.3 F L 96.4 F L Pulse Rate 83 85 85 Respiratory Rate 14 14 14 Blood Pressure 88/53 L 95/58 L 91/54 L Pulse Oximetry 99 99 99 08/28/18 13:24 08/28/18 13:30 08/28/18 13:45 Temperature 96.6 F L 96.8 F L Pulse Rate 87 87 Respiratory Rate 14 14 14 Blood Pressure 90/53 L 90/50 L Pulse Oximetry 99 99 99 08/28/18 14:00 08/28/18 14:15 08/28/18 14:30 Temperature 97.0 F L 97.2 F L 97.3 F L Pulse Rate 88 91 H 94 H Respiratory Rate 14 14 24 Blood Pressure 120/56 L 112/47 L 103/51 L Pulse Oximetry 99 99 96 08/28/18 14:45 08/28/18 15:00 08/28/18 15:15 Temperature 97.5 F L 97.5 F L 97.7 F Pulse Rate 96 H 91 H 89 Respiratory Rate 21 15 14 Blood Pressure 112/55 L 117/57 L Pulse Oximetry 96 96 89 L I&O: Intake & Output 08/26/18 08/27/18 08/28/18 08/29/18 06:59 06:59 06:59 06:59 Intake Total 5536 / 5536 4328 / 4328 Output Total 30 / 30 Balance 5506 / 5506 4328 / 4328 Weight 104.9 kg Physical Exam: CONSTITUTIONAL/GENERAL: This is a critically ill patient, on [facility] vent. TUBES/LINES/DRAINS: ETT, OG to suction, right femoral central line, wrist restraints, easley, SCDs, stevie hugger. SKIN: No jaundice, rashes, or lesions. Ecchymoses on upper extremities. No wounds seen anteriorly. Skin cool to touch. HEAD: Atraumatic. Normocephalic. EYES: eyes closed. ENT: unable to assess hearing. Nose without bleeding or purulent drainage. Throat difficult to visualize due to tubes. NECK: Trachea midline. CARDIOVASCULAR: irregularly irregular. No JVD. RESPIRATORY/CHEST: Symmetric, unlabored respirations. Clear to auscultation. Breath sounds equal bilaterally. No wheezes, rales, or rhonchi. GASTROINTESTINAL: Abdomen soft, protuberant. nondistended. Bowel sounds hypoactive. . GENITOURINARY: Without palpable bladder distension. Easley catheter in place. MUSCULOSKELETAL: Extremities with edema. Old scar left knee. LYMPHATICS: No palpable cervical or supraclavicular adenopathy. NEUROLOGICAL: Unresponsive. PSYCHIATRIC: Unresponsive. Diagnostic Tests Laboratory: Laboratory Results - last 72 hr 08/27/18 08/27/18 08/27/18 20:37 20:40 20:40 WBC RBC Hgb POC Hgb (Calc) Hct POC Hct MCV MCH MCHC RDW Plt Count MPV Prelim Diff (Auto) Neut % (Auto) Lymph % (Auto) [place] % (Auto) Eos % (Auto) Baso % (Auto) Neut # (Auto) Lymph # (Auto) [place] # (Auto) Eos # (Auto) Baso # (Auto) WBC Differential Seg Neuts % (Manual) Band Neuts % (Manual) Lymphocytes % (Manual) Abs Neuts (Manual) Differential Comment Platelet Estimate Platelet Morphology Pappenheimer Bodies PT 23.8 H INR 2.4 APTT Puncture Site Patient Temperature O2 Saturation ABG pH ABG pCO2 ABG pO2 ABG HCO3 ABG O2 Content ABG Base Excess ABG Methemoglobin Ag Test VBG pH VBG pCO2 VBG pO2 VBG HCO3 VBG O2 Saturation VBG O2 Content VBG Base Excess VBG Carboxyhemoglobin VBG Methemoglobin Hemoglobin Carboxyhemoglobin O2 Delivery Device Vent Setting Inspired O2 Critical Value POC Sodium Sodium POC Potassium Potassium POC Chloride Chloride Carbon Dioxide Anion Gap POC BUN BUN Creatinine POC Creatinine Estimated GFR POC Glucose Random Glucose Lactic Acid Calcium Prot Corrected Calcium Phosphorus Magnesium Total Bilirubin AST ALT Alkaline Phosphatase B-Natriuretic Peptide 110 H Total Protein Albumin Ur Collection Type Urine Color Urine Clarity Urine pH Ur Specific [place] Urine Protein Urine Glucose (UA) Urine Ketones Urine Occult Blood Urine Nitrate Urine Bilirubin Urine Ictotest Urine Urobilinogen Ur Leukocyte Esterase Urine RBC Urine WBC Urine WBC Clumps Ur Squamous Epith Cells Ur Transition Epith Cell Ur Renal Epithelial Cell Calcium Carbonate Cryst Calcium Oxalate Crystal Leucine Crystals Cystine Crystals Uric Acid Crystals Triple Phos Crystals Cholesterol Crystals Tyrosine Crystals Amorphous Sediment Urine Bacteria Hyaline Casts Granular Casts Fine Granular Casts Coarse Granular Casts Waxy Casts RBC Casts WBC Casts Urine Mucus Urine Trichomonas Urine Yeast Ur Yeast w Hyphae Urine Sperm Ur Oval Fat Bodies Micro UA Comment Ur Microscopic Review Urine Culture Comments Urine Collection Time Urine Comment Nasal Screen MRSA (PCR) Stl C.difficile DNA Amp St C. diff Tox Epid 027 Blood Type Blood Type Recheck Antibody Screen MTS Gel Crossmatch See Detail Blood Bank Comment 08/27/18 08/27/18 08/27/18 20:40 20:40 20:40 WBC 11.1 H RBC 2.11 L Hgb 6.5 L* POC Hgb (Calc) Hct 20.4 L* POC Hct MCV 96.3 MCH 30.6 MCHC 31.7 L RDW 16.8 Plt Count 418 D MPV 8.4 Prelim Diff (Auto) Slide review pending Neut % (Auto) 81.1 H Lymph % (Auto) 17.0 [place] % (Auto) 1.8 Eos % (Auto) 0.1 Baso % (Auto) 0.0 Neut # (Auto) 9.0 H Lymph # (Auto) 1.9 [place] # (Auto) 0.2 Eos # (Auto) 0.0 Baso # (Auto) 0.0 WBC Differential Manual diff final Seg Neuts % (Manual) 70 Band Neuts % (Manual) 26 H Lymphocytes % (Manual) 4 L Abs Neuts (Manual) 10.7 H Differential Comment . Platelet Estimate High H Platelet Morphology Enlarged H Pappenheimer Bodies PT INR APTT Puncture Site Patient Temperature O2 Saturation ABG pH ABG pCO2 ABG pO2 ABG HCO3 ABG O2 Content ABG Base Excess ABG Methemoglobin Ag Test VBG pH VBG pCO2 VBG pO2 VBG HCO3 VBG O2 Saturation VBG O2 Content VBG Base Excess VBG Carboxyhemoglobin VBG Methemoglobin Hemoglobin Carboxyhemoglobin O2 Delivery Device Vent Setting Inspired O2 Critical Value POC Sodium Sodium 137 POC Potassium Potassium 5.1 POC Chloride Chloride 108 H Carbon Dioxide 10.4 L Anion Gap 19 H POC BUN BUN 72 H Creatinine 3.59 H POC Creatinine Estimated GFR 13 L POC Glucose Random Glucose 114 H Lactic Acid 5.7 H* Calcium 6.2 L* Prot Corrected Calcium 8.5 Phosphorus Magnesium 1.6 Total Bilirubin 0.2 AST 29 ALT 23 Alkaline Phosphatase 98 B-Natriuretic Peptide Total Protein 2.9 L Albumin 0.6 L Ur Collection Type Urine Color Urine Clarity Urine pH Ur Specific [place] Urine Protein Urine Glucose (UA) Urine Ketones Urine Occult Blood Urine Nitrate Urine Bilirubin Urine Ictotest Urine Urobilinogen Ur Leukocyte Esterase Urine RBC Urine WBC Urine WBC Clumps Ur Squamous Epith Cells Ur Transition Epith Cell Ur Renal Epithelial Cell Calcium Carbonate Cryst Calcium Oxalate Crystal Leucine Crystals Cystine Crystals Uric Acid Crystals Triple Phos Crystals Cholesterol Crystals Tyrosine Crystals Amorphous Sediment Urine Bacteria Hyaline Casts Granular Casts Fine Granular Casts Coarse Granular Casts Waxy Casts RBC Casts WBC Casts Urine Mucus Urine Trichomonas Urine Yeast Ur Yeast w Hyphae Urine Sperm Ur Oval Fat Bodies Micro UA Comment Ur Microscopic Review Urine Culture Comments Urine Collection Time Urine Comment Nasal Screen MRSA (PCR) Stl C.difficile DNA Amp St C. diff Tox Epid 027 Blood Type Blood Type Recheck Antibody Screen MTS Gel Crossmatch Blood Bank Comment 08/27/18 08/27/18 08/27/18 20:40 20:40 20:40 WBC RBC Hgb POC Hgb (Calc) Cancelled Hct POC Hct Cancelled MCV MCH MCHC RDW Plt Count MPV Prelim Diff (Auto) Neut % (Auto) Lymph % (Auto) [place] % (Auto) Eos % (Auto) Baso % (Auto) Neut # (Auto) Lymph # (Auto) [place] # (Auto) Eos # (Auto) Baso # (Auto) WBC Differential Seg Neuts % (Manual) Band Neuts % (Manual) Lymphocytes % (Manual) Abs Neuts (Manual) Differential Comment Platelet Estimate Platelet Morphology Pappenheimer Bodies PT INR APTT Puncture Site Right femoral Patient Temperature 98.6 O2 Saturation ABG pH ABG pCO2 ABG pO2 ABG HCO3 ABG O2 Content ABG Base Excess ABG Methemoglobin Ag Test VBG pH 7.18 L* VBG pCO2 29 L VBG pO2 41 H VBG HCO3 10 L* VBG O2 Saturation 53 L VBG O2 Content 3.7 L VBG Base Excess -16.6 L VBG Carboxyhemoglobin 1.1 VBG Methemoglobin 0.3 Hemoglobin 4.9 L* Carboxyhemoglobin O2 Delivery Device Ventilator Vent Setting Inspired O2 100 Critical Value Yes POC Sodium Cancelled Sodium POC Potassium Cancelled Potassium POC Chloride Cancelled Chloride Carbon Dioxide Anion Gap POC BUN Cancelled BUN Creatinine POC Creatinine Cancelled Estimated GFR POC Glucose Cancelled Random Glucose Lactic Acid Calcium Prot Corrected Calcium Phosphorus Magnesium Total Bilirubin AST ALT Alkaline Phosphatase B-Natriuretic Peptide Total Protein Albumin Ur Collection Type Urine Color Urine Clarity Urine pH Ur Specific [place] Urine Protein Urine Glucose (UA) Urine Ketones Urine Occult Blood Urine Nitrate Urine Bilirubin Urine Ictotest Urine Urobilinogen Ur Leukocyte Esterase Urine RBC Urine WBC Urine WBC Clumps Ur Squamous Epith Cells Ur Transition Epith Cell Ur Renal Epithelial Cell Calcium Carbonate Cryst Calcium Oxalate Crystal Leucine Crystals Cystine Crystals Uric Acid Crystals Triple Phos Crystals Cholesterol Crystals Tyrosine Crystals Amorphous Sediment Urine Bacteria Hyaline Casts Granular Casts Fine Granular Casts Coarse Granular Casts Waxy Casts RBC Casts WBC Casts Urine Mucus Urine Trichomonas Urine Yeast Ur Yeast w Hyphae Urine Sperm Ur Oval Fat Bodies Micro UA Comment Ur Microscopic Review Urine Culture Comments Urine Collection Time Urine Comment Nasal Screen MRSA (PCR) Stl C.difficile DNA Amp St C. diff Tox Epid 027 Blood Type A Negative Blood Type Recheck Not needed Antibody Screen Negative MTS Gel Crossmatch Blood Bank Comment 08/27/18 08/27/18 08/27/18 20:40 20:40 21:03 WBC RBC Hgb POC Hgb (Calc) Hct POC Hct MCV MCH MCHC RDW Plt Count MPV Prelim Diff (Auto) Neut % (Auto) Lymph % (Auto) [place] % (Auto) Eos % (Auto) Baso % (Auto) Neut # (Auto) Lymph # (Auto) [place] # (Auto) Eos # (Auto) Baso # (Auto) WBC Differential Seg Neuts % (Manual) Band Neuts % (Manual) Lymphocytes % (Manual) Abs Neuts (Manual) Differential Comment Platelet Estimate Platelet Morphology Pappenheimer Bodies PT INR APTT 91.2 H* Puncture Site Patient Temperature O2 Saturation ABG pH ABG pCO2 ABG pO2 ABG HCO3 ABG O2 Content ABG Base Excess ABG Methemoglobin Ag Test VBG pH VBG pCO2 VBG pO2 VBG HCO3 VBG O2 Saturation VBG O2 Content VBG Base Excess VBG Carboxyhemoglobin VBG Methemoglobin Hemoglobin Carboxyhemoglobin O2 Delivery Device Vent Setting Inspired O2 Critical Value POC Sodium Sodium 134 L POC Potassium Potassium 5.3 H POC Chloride Chloride 104 Carbon Dioxide 11.6 L Anion Gap 18 H POC BUN BUN 71 H Creatinine 4.01 H POC Creatinine Estimated GFR 11 L POC Glucose Random Glucose 112 H Lactic Acid Calcium 7.2 L* D Prot Corrected Calcium 8.9 Phosphorus Magnesium Total Bilirubin AST ALT Alkaline Phosphatase B-Natriuretic Peptide Total Protein 4.2 L D Albumin Ur Collection Type Urine Color Urine Clarity Urine pH Ur Specific [place] Urine Protein Urine Glucose (UA) Urine Ketones Urine Occult Blood Urine Nitrate Urine Bilirubin Urine Ictotest Urine Urobilinogen Ur Leukocyte Esterase Urine RBC Urine WBC Urine WBC Clumps Ur Squamous Epith Cells Ur Transition Epith Cell Ur Renal Epithelial Cell Calcium Carbonate Cryst Calcium Oxalate Crystal Leucine Crystals Cystine Crystals Uric Acid Crystals Triple Phos Crystals Cholesterol Crystals Tyrosine Crystals Amorphous Sediment Urine Bacteria Hyaline Casts Granular Casts Fine Granular Casts Coarse Granular Casts Waxy Casts RBC Casts WBC Casts Urine Mucus Urine Trichomonas Urine Yeast Ur Yeast w Hyphae Urine Sperm Ur Oval Fat Bodies Micro UA Comment Ur Microscopic Review Urine Culture Comments Urine Collection Time Urine Comment Nasal Screen MRSA (PCR) Stl C.difficile DNA Amp St C. diff Tox Epid 027 Blood Type Blood Type Recheck Antibody Screen MTS Gel Crossmatch See Detail Blood Bank Comment 08/27/18 08/27/18 08/27/18 21:10 21:51 23:45 WBC RBC Hgb POC Hgb (Calc) Hct POC Hct MCV MCH MCHC RDW Plt Count MPV Prelim Diff (Auto) Neut % (Auto) Lymph % (Auto) [place] % (Auto) Eos % (Auto) Baso % (Auto) Neut # (Auto) Lymph # (Auto) [place] # (Auto) Eos # (Auto) Baso # (Auto) WBC Differential Seg Neuts % (Manual) Band Neuts % (Manual) Lymphocytes % (Manual) Abs Neuts (Manual) Differential Comment Platelet Estimate Platelet Morphology Pappenheimer Bodies PT INR APTT Puncture Site Patient Temperature O2 Saturation ABG pH ABG pCO2 ABG pO2 ABG HCO3 ABG O2 Content ABG Base Excess ABG Methemoglobin Ag Test VBG pH VBG pCO2 VBG pO2 VBG HCO3 VBG O2 Saturation VBG O2 Content VBG Base Excess VBG Carboxyhemoglobin VBG Methemoglobin Hemoglobin Carboxyhemoglobin O2 Delivery Device Vent Setting Inspired O2 Critical Value POC Sodium Sodium POC Potassium Potassium POC Chloride Chloride Carbon Dioxide Anion Gap POC BUN BUN Creatinine POC Creatinine Estimated GFR POC Glucose Random Glucose Lactic Acid Calcium Prot Corrected Calcium Phosphorus Magnesium Total Bilirubin AST ALT Alkaline Phosphatase B-Natriuretic Peptide Total Protein Albumin Ur Collection Type Cancelled Urine Color Cancelled Urine Clarity Cancelled Urine pH Cancelled Ur Specific [place] Cancelled Urine Protein Cancelled Urine Glucose (UA) Cancelled Urine Ketones Cancelled Urine Occult Blood Cancelled Urine Nitrate Cancelled Urine Bilirubin Cancelled Urine Ictotest Cancelled Urine Urobilinogen Cancelled Ur Leukocyte Esterase Cancelled Urine RBC Cancelled Urine WBC Cancelled Urine WBC Clumps Cancelled Ur Squamous Epith Cells Cancelled Ur Transition Epith Cell Cancelled Ur Renal Epithelial Cell Cancelled Calcium Carbonate Cryst Cancelled Calcium Oxalate Crystal Cancelled Leucine Crystals Cancelled Cystine Crystals Cancelled Uric Acid Crystals Cancelled Triple Phos Crystals Cancelled Cholesterol Crystals Cancelled Tyrosine Crystals Cancelled Amorphous Sediment Cancelled Urine Bacteria Cancelled Hyaline Casts Cancelled Granular Casts Cancelled Fine Granular Casts Cancelled Coarse Granular Casts Cancelled Waxy Casts Cancelled RBC Casts Cancelled WBC Casts Cancelled Urine Mucus Cancelled Urine Trichomonas Cancelled Urine Yeast Cancelled Ur Yeast w Hyphae Cancelled Urine Sperm Cancelled Ur Oval Fat Bodies Cancelled Micro UA Comment Cancelled Ur Microscopic Review Cancelled Urine Culture Comments Cancelled Urine Collection Time Cancelled Urine Comment Cancelled Nasal Screen MRSA (PCR) Mrsa detected Stl C.difficile DNA Amp St C. diff Tox Epid 027 Blood Type Blood Type Recheck Antibody Screen MTS Gel Crossmatch Blood Bank Comment 08/27/18 08/28/18 08/28/18 23:45 00:00 00:15 WBC RBC Hgb POC Hgb (Calc) Hct POC Hct MCV MCH MCHC RDW Plt Count MPV Prelim Diff (Auto) Neut % (Auto) Lymph % (Auto) [place] % (Auto) Eos % (Auto) Baso % (Auto) Neut # (Auto) Lymph # (Auto) [place] # (Auto) Eos # (Auto) Baso # (Auto) WBC Differential Seg Neuts % (Manual) Band Neuts % (Manual) Lymphocytes % (Manual) Abs Neuts (Manual) Differential Comment Platelet Estimate Platelet Morphology Pappenheimer Bodies PT INR APTT Puncture Site Lt arm Patient Temperature 98.6 O2 Saturation ABG pH ABG pCO2 ABG pO2 ABG HCO3 ABG O2 Content ABG Base Excess ABG Methemoglobin Ag Test VBG pH 7.17 L* VBG pCO2 31 L VBG pO2 24 L* VBG HCO3 11 L* VBG O2 Saturation 30 L VBG O2 Content 4.5 L VBG Base Excess -16.3 L VBG Carboxyhemoglobin 0.4 VBG Methemoglobin 1.1 Hemoglobin 10.6 L Carboxyhemoglobin O2 Delivery Device Ventilator Vent Setting Prvc/ac Inspired O2 100 Critical Value Yes POC Sodium Sodium POC Potassium Potassium POC Chloride Chloride Carbon Dioxide Anion Gap POC BUN BUN Creatinine POC Creatinine Estimated GFR POC Glucose Random Glucose Lactic Acid 4.8 H* Calcium Prot Corrected Calcium Phosphorus Magnesium Total Bilirubin AST ALT Alkaline Phosphatase B-Natriuretic Peptide Total Protein Albumin Ur Collection Type Urine Color Urine Clarity Urine pH Ur Specific [place] Urine Protein Urine Glucose (UA) Urine Ketones Urine Occult Blood Urine Nitrate Urine Bilirubin Urine Ictotest Urine Urobilinogen Ur Leukocyte Esterase Urine RBC Urine WBC Urine WBC Clumps Ur Squamous Epith Cells Ur Transition Epith Cell Ur Renal Epithelial Cell Calcium Carbonate Cryst Calcium Oxalate Crystal Leucine Crystals Cystine Crystals Uric Acid Crystals Triple Phos Crystals Cholesterol Crystals Tyrosine Crystals Amorphous Sediment Urine Bacteria Hyaline Casts Granular Casts Fine Granular Casts Coarse Granular Casts Waxy Casts RBC Casts WBC Casts Urine Mucus Urine Trichomonas Urine Yeast Ur Yeast w Hyphae Urine Sperm Ur Oval Fat Bodies Micro UA Comment Ur Microscopic Review Urine Culture Comments Urine Collection Time Urine Comment Nasal Screen MRSA (PCR) Stl C.difficile DNA Amp Negative St C. diff Tox Epid 027 Negative Blood Type Blood Type Recheck Antibody Screen MTS Gel Crossmatch Blood Bank Comment 08/28/18 08/28/18 08/28/18 04:52 05:10 05:10 WBC 13.7 H RBC 3.85 L Hgb 11.6 D POC Hgb (Calc) Hct 34.0 L POC Hct MCV 88.3 D MCH 30.0 MCHC 34.0 RDW 16.4 Plt Count 361 MPV 8.0 Prelim Diff (Auto) Manual diff required Neut % (Auto) Lymph % (Auto) [place] % (Auto) Eos % (Auto) Baso % (Auto) Neut # (Auto) Lymph # (Auto) [place] # (Auto) Eos # (Auto) Baso # (Auto) WBC Differential Manual diff final Seg Neuts % (Manual) 90 H Band Neuts % (Manual) 7 H Lymphocytes % (Manual) 3 L Abs Neuts (Manual) 13.3 H Differential Comment . Platelet Estimate Normal Platelet Morphology Normal Pappenheimer Bodies Present H PT 15.3 H INR 1.5 APTT 53.9 H D Puncture Site Left radial Patient Temperature 98.6 O2 Saturation 98 ABG pH 7.42 ABG pCO2 21 L* ABG pO2 190 H ABG HCO3 13 L* ABG O2 Content 16.1 ABG Base Excess -10.3 L ABG Methemoglobin 1.1 Ag Test Present VBG pH VBG pCO2 VBG pO2 VBG HCO3 VBG O2 Saturation VBG O2 Content VBG Base Excess VBG Carboxyhemoglobin VBG Methemoglobin Hemoglobin 11.5 L Carboxyhemoglobin 0.9 O2 Delivery Device Ventilator Vent Setting Prvc/ac Inspired O2 90 Critical Value Yes POC Sodium Sodium POC Potassium Potassium POC Chloride Chloride Carbon Dioxide Anion Gap POC BUN BUN Creatinine POC Creatinine Estimated GFR POC Glucose Random Glucose Lactic Acid Calcium Prot Corrected Calcium Phosphorus Magnesium Total Bilirubin AST ALT Alkaline Phosphatase B-Natriuretic Peptide Total Protein Albumin Ur Collection Type Urine Color Urine Clarity Urine pH Ur Specific [place] Urine Protein Urine Glucose (UA) Urine Ketones Urine Occult Blood Urine Nitrate Urine Bilirubin Urine Ictotest Urine Urobilinogen Ur Leukocyte Esterase Urine RBC Urine WBC Urine WBC Clumps Ur Squamous Epith Cells Ur Transition Epith Cell Ur Renal Epithelial Cell Calcium Carbonate Cryst Calcium Oxalate Crystal Leucine Crystals Cystine Crystals Uric Acid Crystals Triple Phos Crystals Cholesterol Crystals Tyrosine Crystals Amorphous Sediment Urine Bacteria Hyaline Casts Granular Casts Fine Granular Casts Coarse Granular Casts Waxy Casts RBC Casts WBC Casts Urine Mucus Urine Trichomonas Urine Yeast Ur Yeast w Hyphae Urine Sperm Ur Oval Fat Bodies Micro UA Comment Ur Microscopic Review Urine Culture Comments Urine Collection Time Urine Comment Nasal Screen MRSA (PCR) Stl C.difficile DNA Amp St C. diff Tox Epid 027 Blood Type Blood Type Recheck Antibody Screen MTS Gel Crossmatch Blood Bank Comment 08/28/18 08/28/18 08/28/18 05:10 10:31 12:10 WBC RBC Hgb POC Hgb (Calc) Hct POC Hct MCV MCH MCHC RDW Plt Count MPV Prelim Diff (Auto) Neut % (Auto) Lymph % (Auto) [place] % (Auto) Eos % (Auto) Baso % (Auto) Neut # (Auto) Lymph # (Auto) [place] # (Auto) Eos # (Auto) Baso # (Auto) WBC Differential Seg Neuts % (Manual) Band Neuts % (Manual) Lymphocytes % (Manual) Abs Neuts (Manual) Differential Comment Platelet Estimate Platelet Morphology Pappenheimer Bodies PT INR APTT Puncture Site Patient Temperature O2 Saturation ABG pH ABG pCO2 ABG pO2 ABG HCO3 ABG O2 Content ABG Base Excess ABG Methemoglobin Ag Test VBG pH VBG pCO2 VBG pO2 VBG HCO3 VBG O2 Saturation VBG O2 Content VBG Base Excess VBG Carboxyhemoglobin VBG Methemoglobin Hemoglobin Carboxyhemoglobin O2 Delivery Device Vent Setting Inspired O2 Critical Value POC Sodium Sodium 139 140 POC Potassium Potassium 3.4 L D 3.2 L POC Chloride Chloride 107 106 Carbon Dioxide 13.6 L 17.9 L Anion Gap 18 H 16 H POC BUN BUN 55 H 51 H Creatinine 2.94 H 2.99 H POC Creatinine Estimated GFR 16 L 15 L POC Glucose Random Glucose 295 H D 152 H D Lactic Acid 5.0 H* Calcium 5.4 L* D 5.5 L* Prot Corrected Calcium 6.9 L* D 6.8 L* D Phosphorus 4.7 Magnesium 1.2 L Total Bilirubin 1.1 H AST 47 H ALT 32 Alkaline Phosphatase 129 H B-Natriuretic Peptide Total Protein 3.7 L 4.2 L Albumin 0.8 L Ur Collection Type Urine Color Urine Clarity Urine pH Ur Specific [place] Urine Protein Urine Glucose (UA) Urine Ketones Urine Occult Blood Urine Nitrate Urine Bilirubin Urine Ictotest Urine Urobilinogen Ur Leukocyte Esterase Urine RBC Urine WBC Urine WBC Clumps Ur Squamous Epith Cells Ur Transition Epith Cell Ur Renal Epithelial Cell Calcium Carbonate Cryst Calcium Oxalate Crystal Leucine Crystals Cystine Crystals Uric Acid Crystals Triple Phos Crystals Cholesterol Crystals Tyrosine Crystals Amorphous Sediment Urine Bacteria Hyaline Casts Granular Casts Fine Granular Casts Coarse Granular Casts Waxy Casts RBC Casts WBC Casts Urine Mucus Urine Trichomonas Urine Yeast Ur Yeast w Hyphae Urine Sperm Ur Oval Fat Bodies Micro UA Comment Ur Microscopic Review Urine Culture Comments Urine Collection Time Urine Comment Nasal Screen MRSA (PCR) Stl C.difficile DNA Amp St C. diff Tox Epid 027 Blood Type Blood Type Recheck Antibody Screen MTS Gel Crossmatch Blood Bank Comment 08/28/18 12:10 WBC 12.9 H RBC 2.78 L Hgb 8.6 L D POC Hgb (Calc) Hct 24.4 L POC Hct MCV 87.6 MCH 30.9 MCHC 35.3 RDW 17.2 Plt Count 291 MPV 8.0 Prelim Diff (Auto) Neut % (Auto) 86.2 H Lymph % (Auto) 10.3 [place] % (Auto) 2.7 Eos % (Auto) 0.7 Baso % (Auto) 0.1 Neut # (Auto) 11.1 H Lymph # (Auto) 1.3 [place] # (Auto) 0.3 Eos # (Auto) 0.1 Baso # (Auto) 0.0 WBC Differential . Seg Neuts % (Manual) Band Neuts % (Manual) Lymphocytes % (Manual) Abs Neuts (Manual) Differential Comment Auto diff final Platelet Estimate Platelet Morphology Pappenheimer Bodies PT INR APTT Puncture Site Patient Temperature O2 Saturation ABG pH ABG pCO2 ABG pO2 ABG HCO3 ABG O2 Content ABG Base Excess ABG Methemoglobin Ag Test VBG pH VBG pCO2 VBG pO2 VBG HCO3 VBG O2 Saturation VBG O2 Content VBG Base Excess VBG Carboxyhemoglobin VBG Methemoglobin Hemoglobin Carboxyhemoglobin O2 Delivery Device Vent Setting Inspired O2 Critical Value POC Sodium Sodium POC Potassium Potassium POC Chloride Chloride Carbon Dioxide Anion Gap POC BUN BUN Creatinine POC Creatinine Estimated GFR POC Glucose Random Glucose Lactic Acid Calcium Prot Corrected Calcium Phosphorus Magnesium Total Bilirubin AST ALT Alkaline Phosphatase B-Natriuretic Peptide Total Protein Albumin Ur Collection Type Urine Color Urine Clarity Urine pH Ur Specific [place] Urine Protein Urine Glucose (UA) Urine Ketones Urine Occult Blood Urine Nitrate Urine Bilirubin Urine Ictotest Urine Urobilinogen Ur Leukocyte Esterase Urine RBC Urine WBC Urine WBC Clumps Ur Squamous Epith Cells Ur Transition Epith Cell Ur Renal Epithelial Cell Calcium Carbonate Cryst Calcium Oxalate Crystal Leucine Crystals Cystine Crystals Uric Acid Crystals Triple Phos Crystals Cholesterol Crystals Tyrosine Crystals Amorphous Sediment Urine Bacteria Hyaline Casts Granular Casts Fine Granular Casts Coarse Granular Casts Waxy Casts RBC Casts WBC Casts Urine Mucus Urine Trichomonas Urine Yeast Ur Yeast w Hyphae Urine Sperm Ur Oval Fat Bodies Micro UA Comment Ur Microscopic Review Urine Culture Comments Urine Collection Time Urine Comment Nasal Screen MRSA (PCR) Stl C.difficile DNA Amp St C. diff Tox Epid 027 Blood Type Blood Type Recheck Antibody Screen MTS Gel Crossmatch Blood Bank Comment Result Diagrams: 08/28/18 12:10 08/28/18 12:10 Microbiology: Microbiology 08/27/18 20:42 Aerobic Blood Culture - Preliminary Blood - Peripheral No growth in 1 day Anaerobic Blood Culture - Preliminary No growth in 1 day 08/27/18 20:42 Aerobic Blood Culture - Preliminary Blood - Peripheral No growth in 1 day Anaerobic Blood Culture - Preliminary No growth in 1 day Imaging: Chest X-Ray 08/27/18 21:01 CONCLUSION: 1. ET tube tip is within 2 cm of the fred and needs to be withdrawn 1 cm. 2. Patchy infiltrates in the left lower lung. Procedures: * 08/27/18 - intubated, central line placed. Patient/Family Conference Present at Family Conference: Spoke with Meggan CHAND via phone. Family Conference Time: 35 Family Conference Location: Telephone Issues Discussed: * Palliative care role, purpose, approach * Additional medical, psychosocial, and spiritual history * Patients general health, functional status, and cognitive changes in the months leading up to the current hospitalization * Patient/family understanding of the current medical problems * Patient/family understanding of prognosis * Patients goals of care as best understood from advance directives and/or conversations and/or values * Current medical treatment options and benefits/burdens of those options * Likely scenarios comparing ongoing aggressive care with a transition to comfort measures only * Questions answered to the best of my ability * Palliative care contact information provided Assessment and Plan - Disease Oriented Problem List (1) Acute renal failure (ARF) (2) Acute blood loss anemia (3) GI bleed (4) Hypotension due to blood loss (5) CKD (chronic kidney disease), stage III (6) Atrial fibrillation (7) Metabolic acidosis - Symptom Scale (1) Pain 0-10 Scale: Unable to quantify (2) Dyspnea 0-10 Scale: Unable to quantify Pertinent Non-Medical Issues: Psychosocial: Single, No children. Parents . Supported by her 2 cousins , Fozia and Jolene. 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 Legal:Patient is not capacitated to make her own healthcare decisions, unlikely she will regain capacity. Medical power of commercial real estate attorney, Meggan Johnson (cousin). Ethical issues impacting care: No known concerns at this time. Important Contacts: * ping Robbins/ [facility]: [phone] * Fozia Kulkarni, cousin: [phone] Prognosis: Per Dr. Grewal on 08/28/18: "Overall impression: This woman is critically ill with distributive shock possibly related to an intra-abdominal process. The initial workup is negative for obvious sepsis source but she continues to be severely hypotensive with large intravenous fluid requirements. Despite early aggressive resuscitation she is not responding to our therapy and continues with a profound metabolic acidosis. We will continue aggressive resuscitation over the ensuing hours and keep the family apprised of these dire straits." Code Status: Alternative Code (Intubation and ACLS only) Plan: * Patient is not capacitated to make her own healthcare decisions, unlikely she will regain capacity. Medical power of commercial real estate attorney, Meggan Johnson (cousin). * ALTERNATE CODE: Intubation and ACLS only * Goals: Desires continued aggressive care short of alternate CODE STATUS intubation and ACLS only. No hemodialysis. Family open to continued conversations regarding goals of care. Family is hoping for improvement, may consider transition to comfort if further decline or no clinical improvement in the coming days. I think they need time to absorb the critical nature of her illness. * SYMPTOMS: Pain: No obvious signs of pain patient unresponsive. On fentanyl 75 mcg. Dyspnea: On mechanical ventilation. No new medication recommendations at this time. * Palliative care number provided. * Palliative care will continue to follow throughout hospital course to assist with symptom management further clarification of goals of medical treatment as needed. Appreciation Thank you for the opportunity to participate in the care of Jolene Urena. Attestation Attestation: To help prompt me to consider important information that might be impacting today's encounter and assessment, information from prior notes written by myself or my colleagues may have been "brought forward" into today's note. My signature on this note, however, is an attestation that I personally performed the exam, history, and/or decision-making noted today, and, unless otherwise indicated, the interactions with patient, family, and staff as well as the review of records all occurred today. I also attest that the listed assessment and stated plan reflect my best clinical judgment today based on the combination of historical information, prior notes, and today's exam/ interactions. When time spent is documented, it refers only to time spent today by the signer, or if indicated, combined time spent today by collaborating physician/nurse practitioner.
[2018-08-29] MEDS: Norepinephrine Inj 4 MG in Sodium Chlor 0.9% Inj 246 ML IV.SIG PRN ×4 (01:06→23:48)
[2018-08-29] MEDS: Sod Chloride 0.9% Inj 1,000 ML IV.CONT SCH ×4 (01:07→16:19)
[2018-08-29] MEDS: Sodium Bicarbonate 8.4% Inj 150 MEQ in Water for Inj, Sterile 850 ML IV.CONT SCH (02:42)
[2018-08-29] MEDS: Chlorhexidine Gluconate 2% 1 Pack (2 Cloths) TOPICAL SCH (04:29)
[2018-08-29] MEDS: Oral Hygiene Kit OROPHARYNG SCH ×3 (04:30→16:18)
[2018-08-29] MEDS: Vasopressin Inj 40 UNIT in Dextrose 5% in Water Inj 98 ML IV.CONT SCH ×4 (06:21→21:41)
[2018-08-29] MEDS: fentaNYL 10 mcg/mL Premix Drip 2,500 MCG/250 ML BAG IV.SIG PRN (06:21)
[2018-08-29 07:34] LABS: Baso % (Auto) 0.1 % (0.0-2.0); Eos # (Auto) 0.1 th/mm3 (0.0-0.4); Eos % (Auto) 0.9 % (0.0-4.0); Hematocrit 23.2 % (35.0-46.0); Lymph # (Auto) 0.5 th/mm3 (1.0-4.8); Lymph % (Auto) 6.6 % (9.0-44.0); Mean Corpuscular HGB Conc 34.6 % (32.0-36.0); Mean Corpuscular Hemoglobin 30.6 pg (27.0-34.0); Mean Corpuscular Volume 88.6 fL (80.0-100.0); Mean Platelet Volume 8.2 fL (7.0-11.0); Mono # (Auto) 0.2 th/mm3 (0.0-0.9); Neut # (Auto) 7.4 th/mm3 (1.8-7.7); Neut % (Auto) 90.4 % (16.0-70.0); Platelet Count 228 th/mm3 (150-450); Red Blood Count 2.62 mil/mm3 (4.00-5.30); Red Cell Distribution Width 18.2 % (11.6-17.2); White Blood Count 8.1 th/mm3 (4.0-11.0)
[2018-08-29] MEDS ORDERED: Midazolam 100 MG/100 ML Inj 100 MG/100 ML BAG IV.CONT PRN (07:45)
[2018-08-29] MEDS: Chlorhexidine 0.12% Oral Kit 15 ML UDC OROPHARYNG SCH ×2 (08:04→23:02)
[2018-08-29 08:17] LABS: Albumin 1.1 g/dL (3.4-5.0); Calcium 5.4 mg/dL (8.5-10.1); Carbon Dioxide 20.6 meq/L (21.0-32.0); Total Protein 3.6 g/dL (6.4-8.2)
[2018-08-29] MEDS: Senna/Docusate Sodium 8.6/50 MG Tablet PO SCH ×2 (08:42→20:45)
--- NOTE | 2018-08-29 08:58 | P.PNCC ---
Subjective Subjective Remarks/Hospital Course: 73-year-old female presents for an evaluation of altered mental status. Patient has been this way for approximately 3 days. Per EMS report patient has been lethargic but arouses easily. prison reported to EMS patient has had nausea, vomiting, diarrhea times 3 days. Patient has a history of GI bleed x2 in the past. Past medical history significant for GERD, GI bleed, hypertension, hyperlipidemia, chronic kidney disease, A. fib, CHF. Patient is on Eliquis. The patient was intubated by ED attending for an airway protection in the emergency department, as well as the right femoral central line catheter was placed. 08/28: The patient is now received 8 continuous hours of aggressive resuscitation with mechanical ventilation, 7 L of intravascular fluid administration, broad-spectrum antibiotic coverage, replacement of electrolyte deficits, attempted correction of acid-base deficits, and continuous manipulation of vasopressor agents including dopamine and norepinephrine and vasopressin. She continues with a profound metabolic acidosis and has developed an urea with acute kidney injury on top of underlying chronic kidney disease. Despite best efforts she continues to deteriorate and not respond well to our aggressive interventional therapy. I have spoke with the patient's POA for healthcare, Meggan Johnson, in [place] and she is adamant that we not resort to dialysis and not do chest compressions should her heart stop. Short of that she would like to continue drug support and mechanical ventilation. 08/29: Patient continues to deteriorate requiring increasing amounts of high dose vasopressor support. The ongoing metabolic acidosis precludes us from continuing this course. I will attempt to substitute volume for vasopressor and see if we cannot recover the kidneys. There is no obvious source of infection and her white count is returned to normal. She is too unstable for a CAT scan of the abdomen but the abdomen remains soft and nontender. She is essentially an uric at this point and would likely require dialysis should she survive. Objective Vital Signs / I&O: Vital Signs 08/28/18 08:56 08/28/18 09:00 08/28/18 09:03 Temperature 97.7 F 97.5 F L 97.5 F L Pulse Rate 84 85 84 Respiratory Rate 15 15 15 Blood Pressure 95/56 L 83/44 L Pulse Oximetry 97 99 100 08/28/18 09:15 08/28/18 09:25 08/28/18 09:28 Temperature 97.5 F L 97.5 F L Pulse Rate 83 82 Respiratory Rate 15 14 14 Blood Pressure 92/42 L Pulse Oximetry 94 L 93 L 92 L 08/28/18 09:30 08/28/18 09:40 08/28/18 09:42 Temperature 97.3 F L 97.3 F L 97.2 F L Pulse Rate 82 81 81 Respiratory Rate 14 14 14 Blood Pressure 85/41 L 103/59 L Pulse Oximetry 94 L 94 L 93 L 08/28/18 09:45 08/28/18 09:55 08/28/18 10:00 Temperature 97.2 F L 97.2 F L 97.0 F L Pulse Rate 81 80 79 Respiratory Rate 14 14 14 Blood Pressure 93/44 L Pulse Oximetry 92 L 92 L 92 L 08/28/18 10:06 08/28/18 10:10 08/28/18 10:15 Temperature 97 F L 96.8 F L 96.8 F L Pulse Rate 79 79 79 Respiratory Rate 14 14 14 Blood Pressure 93/44 L 95/45 L Pulse Oximetry 96 94 L 96 08/28/18 10:25 08/28/18 10:30 08/28/18 10:40 Temperature 96.6 F L 96.6 F L 96.6 F L Pulse Rate 88 81 81 Respiratory Rate 19 14 16 Blood Pressure 83/50 L 114/90 Pulse Oximetry 99 100 100 08/28/18 10:45 08/28/18 11:00 08/28/18 11:06 Temperature 96.4 F L 96.3 F L 96.3 F L Pulse Rate 81 82 82 Respiratory Rate 14 15 14 Blood Pressure 102/42 L Pulse Oximetry 100 99 99 08/28/18 11:15 08/28/18 11:17 08/28/18 11:30 Temperature 96.1 F L 96.3 F L 96.1 F L Pulse Rate 80 80 81 Respiratory Rate 14 13 14 Blood Pressure 102/42 L Pulse Oximetry 100 99 99 08/28/18 11:45 08/28/18 11:58 08/28/18 12:00 Temperature 95.9 F L 96.1 F L 95.9 F L Pulse Rate 81 81 82 Respiratory Rate 14 14 14 Blood Pressure Pulse Oximetry 99 99 99 08/28/18 12:05 08/28/18 12:15 08/28/18 12:30 Temperature 95.9 F L 96.1 F L 96.1 F L Pulse Rate 88 83 85 Respiratory Rate 14 14 14 Blood Pressure 97/54 L 98/47 L 92/53 L Pulse Oximetry 98 100 100 08/28/18 12:45 08/28/18 13:00 08/28/18 13:15 Temperature 96.1 F L 96.3 F L 96.4 F L Pulse Rate 83 85 85 Respiratory Rate 14 14 14 Blood Pressure 88/53 L 95/58 L 91/54 L Pulse Oximetry 99 99 99 08/28/18 13:24 08/28/18 13:30 08/28/18 13:45 Temperature 96.6 F L 96.8 F L Pulse Rate 87 87 Respiratory Rate 14 14 14 Blood Pressure 90/53 L 90/50 L Pulse Oximetry 99 99 99 08/28/18 14:00 08/28/18 14:15 08/28/18 14:30 Temperature 97.0 F L 97.2 F L 97.3 F L Pulse Rate 88 91 H 94 H Respiratory Rate 14 14 24 Blood Pressure 120/56 L 112/47 L 103/51 L Pulse Oximetry 99 99 96 08/28/18 14:45 08/28/18 15:00 08/28/18 15:15 Temperature 97.5 F L 97.5 F L 97.7 F Pulse Rate 96 H 91 H 89 Respiratory Rate 21 15 14 Blood Pressure 112/55 L 117/57 L Pulse Oximetry 96 96 89 L 08/28/18 15:24 08/28/18 15:30 08/28/18 15:45 Temperature 97.7 F 97.7 F 97.7 F Pulse Rate 94 H 92 H 54 L Respiratory Rate 14 14 21 Blood Pressure 129/57 L 126/50 L 120/48 L Pulse Oximetry 98 98 99 08/28/18 16:00 08/28/18 16:15 08/28/18 16:30 Temperature 97.7 F 97.9 F 97.9 F Pulse Rate 94 H 79 92 H Respiratory Rate 14 25 H 0 L Blood Pressure 134/58 L 93/52 L 94/48 L Pulse Oximetry 97 99 100 08/28/18 16:45 08/28/18 17:00 08/28/18 17:15 Temperature 97.9 F 97.9 F 98.1 F Pulse Rate 93 H 93 H Respiratory Rate 0 L 0 L 17 Blood Pressure 109/55 L 117/53 L 110/51 L Pulse Oximetry 99 100 100 08/28/18 17:30 08/28/18 17:45 08/28/18 17:52 Temperature 98.1 F 98.1 F Pulse Rate 93 H 95 H Respiratory Rate 14 14 14 Blood Pressure 103/54 L 103/51 L Pulse Oximetry 100 100 100 08/28/18 18:00 08/28/18 18:15 08/28/18 18:30 Temperature 98.1 F 98.1 F 98.1 F Pulse Rate 98 H 100 H 96 H Respiratory Rate 14 14 14 Blood Pressure 100/50 L 93/54 L 95/53 L Pulse Oximetry 100 96 95 08/28/18 20:00 08/28/18 20:17 08/28/18 20:30 Temperature 98.2 F 98.1 F Pulse Rate 97 H 100 H Respiratory Rate 16 14 14 Blood Pressure 101/53 L 102/50 L Pulse Oximetry 95 96 95 08/28/18 20:45 08/28/18 21:00 08/28/18 21:15 Temperature 98.1 F 98.1 F 98.1 F Pulse Rate 99 H 100 H 100 H Respiratory Rate 14 14 14 Blood Pressure 101/51 L 104/52 L 101/49 L Pulse Oximetry 95 96 95 08/28/18 21:30 08/28/18 21:45 08/28/18 22:00 Temperature 98.1 F 98.2 F 98.2 F Pulse Rate 101 H 99 H 98 H Respiratory Rate 14 14 14 Blood Pressure 101/53 L 102/51 L 103/51 L Pulse Oximetry 96 95 95 08/28/18 22:15 08/28/18 22:30 08/28/18 22:45 Temperature 98.2 F 98.2 F 98.2 F Pulse Rate 100 H 100 H 101 H Respiratory Rate 14 14 14 Blood Pressure 109/53 L 105/55 L 101/51 L Pulse Oximetry 95 95 95 08/28/18 23:00 08/28/18 23:15 08/28/18 23:30 Temperature 98.2 F 98.2 F 98.2 F Pulse Rate 101 H 100 H 100 H Respiratory Rate 14 14 14 Blood Pressure 111/54 L 108/53 L 105/58 L Pulse Oximetry 94 L 94 L 95 08/28/18 23:45 08/29/18 00:00 08/29/18 00:15 Temperature 98.2 F 98.4 F 98.4 F Pulse Rate 102 H 99 H 102 H Respiratory Rate 14 14 14 Blood Pressure 108/52 L 110/53 L 112/54 L Pulse Oximetry 94 L 94 L 94 L 08/29/18 00:30 08/29/18 00:45 08/29/18 01:00 Temperature 98.4 F 98.4 F 98.4 F Pulse Rate 99 H 102 H 100 H Respiratory Rate 14 14 14 Blood Pressure 111/57 L 102/55 L 97/52 L Pulse Oximetry 95 95 95 08/29/18 01:15 08/29/18 01:30 08/29/18 01:45 Temperature 98.4 F 98.6 F 98.6 F Pulse Rate 100 H 102 H 93 H Respiratory Rate 14 14 22 Blood Pressure 99/54 L 99/55 L 88/50 L Pulse Oximetry 95 95 93 L 08/29/18 02:00 08/29/18 02:15 08/29/18 02:17 Temperature 98.6 F 98.6 F 98.6 F Pulse Rate 101 H 102 H 106 H Respiratory Rate 14 14 20 Blood Pressure 85/50 L 84/50 L 98/57 L Pulse Oximetry 97 97 95 08/29/18 03:00 08/29/18 03:47 08/29/18 04:00 Temperature 99 F 99.3 F Pulse Rate 112 H 110 H Respiratory Rate 13 16 16 Blood Pressure 125/68 105/56 L Pulse Oximetry 95 95 96 08/29/18 05:00 08/29/18 05:15 08/29/18 05:30 Temperature 99.1 F 99.1 F 99.0 F Pulse Rate 109 H 107 H 108 H Respiratory Rate 14 14 14 Blood Pressure 91/55 L 94/53 L 98/53 L Pulse Oximetry 96 97 95 08/29/18 05:45 08/29/18 06:00 08/29/18 06:15 Temperature 99.1 F 99.1 F 99.1 F Pulse Rate 108 H 110 H 110 H Respiratory Rate 14 22 15 Blood Pressure 108/55 L 107/53 L 108/56 L Pulse Oximetry 93 L 97 95 08/29/18 06:30 08/29/18 06:45 08/29/18 07:45 Temperature 99.1 F 99.0 F Pulse Rate 109 H 109 H Respiratory Rate 14 14 14 Blood Pressure 107/52 L 100/54 L Pulse Oximetry 95 95 96 Intake & Output 08/28/18 08/29/18 08/29/18 18:59 06:59 18:59 Intake Total 4678 / 4678 3350 / 3350 Output Total 50 / 50 70 / 70 Balance 4628 / 4628 3280 / 3280 Weight 118.5 kg Intake: IV 3650 / 3650 3350 / 3350 Versed Inj 50 mg In 50 ml @ 2 50 / 50 MG/HR 2 mls/hr IV.CONT TITRATE PRN Rx#:[id number] Sodium Bicarbonate 8.4% Inj 150 1999 / 2000 2000 / 1999 MEQ In Sterile Water for Inj 850 ML @ 150 mls/hr IV.CONT . Q6H40M [facility] Rx#:[id number] Pitressin Inj 40 UNIT In D5W 100 / 100 100 / 100 Inj 98 ML @ 0.01 UNITS/MIN 1.5 mls/hr IV.CONT CONT [facility] Rx#: [id number] Levophed Inj 4 MG In NS Inj 246 1000 / 1000 750 / 750 ML @ 2 MCG/MIN 7.5 mls/hr IV. SIG TITRATE PRN Rx#:[id number] Levophed-Dextrose 4 mg/250 ml 250 / 250 Drip 4 mg In 250 ml @ 0 mls/hr IV.SIG .STK-MED ONE Rx#: [id number] fentaNYL 10 mcg/mL Premix Drip 250 / 250 2,500 mcg In 250 ml @ 50 MCG/HR 5 mls/hr IV.SIG TITRATE PRN Rx #:[id number] Flagyl 500 MG Inj 100 ML @ 100 200 / 200 200 / 200 mls/hr IV.SIG Q6H [facility] Rx#: [id number] Intake (Blood Product) Amt 1028 / 1028 Plasma Thawed 5 Day Acda Unit 221 / 221 [id number] Plasma Thawed 5 Day Cp2d Unit 304 / 304 [id number] Plasma Thawed 5 Day Cp2d Unit 205 / 205 [id number] Plasma Thawed 5 Day Cp2d Unit 298 / 298 [id number] Output: Urine 50 / 50 Urine Amount (Catheter) 70 / 70 Indwelling Urethral Catheter / Other: # Bowel Movements 0 Result Diagrams: 08/29/18 06:45 08/29/18 06:45 Objective Remarks: - Constitutional On mechanical ventilation, appropriately sedated, morbidly obese, chronically ill appearing, diaphoretic, remains poorly perfused - Routine HEENT Exam Head: Present: normocephalic, atraumatic Eye: Present: PERRL - Routine Neck Exam Present: supple, full ROM. Orotracheal intubation. absent: JVD, carotid bruit - Routine Respiratory Exam Present: patient mechanically ventilated. Scattered rhonchi, acceptable bilateral air entry. absent: accessory muscle use, stridor, wheezes - Routine Cardiovascular Exam Present: S1, S2, irregularly irregular, neck veins not distended - Routine Abdominal Exam Present: soft, normoactive bowel sounds, moderate tenderness. Absent: distended - Routine Extremities Exam Tepid extremities, poorly perfused absent: cyanosis, clubbing, edema - Routine Skin Exam Absent: intact, cyanosis, erythema - Routine Neurological Exam Present: altered mental status, moving all extremities, unresponsive to stimulation. Sedated for vent synchrony Assessment and Plan - Assessment and Plan Plan: Respiratory failure -Intubated for an airway protection -SBT daily when more alert and hemodynamically stable -Vent bundle -DuoNeb's as needed -PRVC mode -Serial ABG -Deteriorating gas exchange 08/29 GI bleed -Protonix IV twice daily -Reverse Eliquis -Patient received K Centra in the ED -Monitor H&H -Gastroenterology consultation -Serial abdominal exam, remains benign Hypotension -Severe dehydration -Aggressive IV fluid resuscitation -Dopamine as needed to keep map above 65 -Reduce Levophed upper range 12 mics per minute -Continue hydration with isotonic crystalloid Metabolic acidosis -Severe diarrhea -Levaquin Flagyl empirically -Aggressive IV fluid resuscitation -Sodium bicarbonate IV, hold Acute on chronic kidney failure -Dehydration -Due to volume loss -Strict I's and O's -Monitor creatinine and electrolytes -IV fluids -Anuric Atrial fibrillation -Rate controlled -Telemetry -Sustained tachycardia DVT GI prophylaxis -Teds SCDs -Hold pharmacological DVT prophylaxis due to acute GI bleed -Protonix IV twice daily Overall impression: This woman is critically ill with distributive shock possibly related to an intra-abdominal process. The initial workup is negative for obvious sepsis source but she continues to be severely hypotensive with large intravenous fluid requirements. Despite early aggressive resuscitation she is not responding to our therapy and continues with a profound metabolic acidosis. We will continue aggressive resuscitation over the ensuing hours and keep the family apprised of these dire straits. She has deteriorated clinically over the past 24 hours. I have talked extensively with her only relative in the area, who is the sister of her power of director of social services now living in [place]. She is aware that the patient is in desperate condition and may well not survive this illness. She and her sister have requested that we not go to extreme measures and we talked specifically about not doing chest compressions should her heart stop. I will make her alternate CODE STATUS. Critical care time 40 minutes aside from procedures.
[2018-08-29] MEDS: Pantoprazole Inj 40 MG Vial IV.PUSH SCH ×2 (09:16→21:43)
--- NOTE | 2018-08-29 09:46 | P.PNPAL ---
Call from cousin, Meggan to request medical update. I reviewed records and explained despite aggressive measures that patient continues to deteriorate. Reviewed lab results, potential need for dialysis which family has elected NOT to pursue. She understands patient will not likely survive. She tells me her sister, Fozia will be coming to the hospital this morning. She is not yet ready to make further decisions during my conversation.
[2018-08-29] MEDS ORDERED: Dextrose 50% in Water Syringe 50 ML ONE (10:02)
[2018-08-29] MEDS ORDERED: Dextrose 50% in Water 50 ML Vial IV.PUSH PRN ×2 (10:51→18:02)
--- NOTE | 2018-08-29 11:26 | P.PNGI ---
Subjective Interval history: Patient intubated and mechanically ventilated No reported active bleeding noted Physical Exam Vital signs: Vital Signs 08/28/18 11:30 08/28/18 11:45 08/28/18 11:58 Temperature 96.1 F L 95.9 F L 96.1 F L Pulse Rate 81 81 81 Respiratory Rate 14 14 14 Blood Pressure Pulse Oximetry 99 99 99 08/28/18 12:00 08/28/18 12:05 08/28/18 12:15 Temperature 95.9 F L 95.9 F L 96.1 F L Pulse Rate 82 88 83 Respiratory Rate 14 14 14 Blood Pressure 97/54 L 98/47 L Pulse Oximetry 99 98 100 08/28/18 12:30 08/28/18 12:45 08/28/18 13:00 Temperature 96.1 F L 96.1 F L 96.3 F L Pulse Rate 85 83 85 Respiratory Rate 14 14 14 Blood Pressure 92/53 L 88/53 L 95/58 L Pulse Oximetry 100 99 99 08/28/18 13:15 08/28/18 13:24 08/28/18 13:30 Temperature 96.4 F L 96.6 F L Pulse Rate 85 87 Respiratory Rate 14 14 14 Blood Pressure 91/54 L 90/53 L Pulse Oximetry 99 99 99 08/28/18 13:45 08/28/18 14:00 08/28/18 14:15 Temperature 96.8 F L 97.0 F L 97.2 F L Pulse Rate 87 88 91 H Respiratory Rate 14 14 14 Blood Pressure 90/50 L 120/56 L 112/47 L Pulse Oximetry 99 99 99 08/28/18 14:30 08/28/18 14:45 08/28/18 15:00 Temperature 97.3 F L 97.5 F L 97.5 F L Pulse Rate 94 H 96 H 91 H Respiratory Rate 24 21 15 Blood Pressure 103/51 L 112/55 L 117/57 L Pulse Oximetry 96 96 96 08/28/18 15:15 08/28/18 15:24 08/28/18 15:30 Temperature 97.7 F 97.7 F 97.7 F Pulse Rate 89 94 H 92 H Respiratory Rate 14 14 14 Blood Pressure 129/57 L 126/50 L Pulse Oximetry 89 L 98 98 08/28/18 15:45 08/28/18 16:00 08/28/18 16:15 Temperature 97.7 F 97.7 F 97.9 F Pulse Rate 54 L 94 H 79 Respiratory Rate 21 14 25 H Blood Pressure 120/48 L 134/58 L 93/52 L Pulse Oximetry 99 97 99 08/28/18 16:30 18 16:45 08/28/18 17:00 Temperature 97.9 F 97.9 F 97.9 F Pulse Rate 92 H 93 H 93 H Respiratory Rate 0 L 0 L 0 L Blood Pressure 94/48 L 109/55 L 117/53 L Pulse Oximetry 100 99 100 08/28/18 17:15 08/28/18 17:30 08/28/18 17:45 Temperature 98.1 F 98.1 F 98.1 F Pulse Rate 93 H 95 H Respiratory Rate 17 14 14 Blood Pressure 110/51 L 103/54 L 103/51 L Pulse Oximetry 100 100 100 08/28/18 17:52 08/28/18 18:00 08/28/18 18:15 Temperature 98.1 F 98.1 F Pulse Rate 98 H 100 H Respiratory Rate 14 14 14 Blood Pressure 100/50 L 93/54 L Pulse Oximetry 100 100 96 08/28/18 18:30 08/28/18 20:00 08/28/18 20:17 Temperature 98.1 F 98.2 F Pulse Rate 96 H 97 H Respiratory Rate 14 16 14 Blood Pressure 95/53 L 101/53 L Pulse Oximetry 95 95 96 08/28/18 20:30 08/28/18 20:45 08/28/18 21:00 Temperature 98.1 F 98.1 F 98.1 F Pulse Rate 100 H 99 H 100 H Respiratory Rate 14 14 14 Blood Pressure 102/50 L 101/51 L 104/52 L Pulse Oximetry 95 95 96 08/28/18 21:15 08/28/18 21:30 08/28/18 21:45 Temperature 98.1 F 98.1 F 98.2 F Pulse Rate 100 H 101 H 99 H Respiratory Rate 14 14 14 Blood Pressure 101/49 L 101/53 L 102/51 L Pulse Oximetry 95 96 95 08/28/18 22:00 08/28/18 22:15 08/28/18 22:30 Temperature 98.2 F 98.2 F 98.2 F Pulse Rate 98 H 100 H 100 H Respiratory Rate 14 14 14 Blood Pressure 103/51 L 109/53 L 105/55 L Pulse Oximetry 95 95 95 08/28/18 22:45 08/28/18 23:00 08/28/18 23:15 Temperature 98.2 F 98.2 F 98.2 F Pulse Rate 101 H 101 H 100 H Respiratory Rate 14 14 14 Blood Pressure 101/51 L 111/54 L 108/53 L Pulse Oximetry 95 94 L 94 L 08/28/18 23:30 08/28/18 23:45 08/29/18 00:00 Temperature 98.2 F 98.2 F 98.4 F Pulse Rate 100 H 102 H 99 H Respiratory Rate 14 14 14 Blood Pressure 105/58 L 108/52 L 110/53 L Pulse Oximetry 95 94 L 94 L 08/29/18 00:15 08/29/18 00:30 08/29/18 00:45 Temperature 98.4 F 98.4 F 98.4 F Pulse Rate 102 H 99 H 102 H Respiratory Rate 14 14 14 Blood Pressure 112/54 L 111/57 L 102/55 L Pulse Oximetry 94 L 95 95 08/29/18 01:00 08/29/18 01:15 08/29/18 01:30 Temperature 98.4 F 98.4 F 98.6 F Pulse Rate 100 H 100 H 102 H Respiratory Rate 14 14 14 Blood Pressure 97/52 L 99/54 L 99/55 L Pulse Oximetry 95 95 95 08/29/18 01:45 08/29/18 02:00 08/29/18 02:15 Temperature 98.6 F 98.6 F 98.6 F Pulse Rate 93 H 101 H 102 H Respiratory Rate 22 14 14 Blood Pressure 88/50 L 85/50 L 84/50 L Pulse Oximetry 93 L 97 97 08/29/18 02:17 08/29/18 03:00 08/29/18 03:47 Temperature 98.6 F 99 F Pulse Rate 106 H 112 H Respiratory Rate 20 13 16 Blood Pressure 98/57 L 125/68 Pulse Oximetry 95 95 95 08/29/18 04:00 08/29/18 05:00 08/29/18 05:15 Temperature 99.3 F 99.1 F 99.1 F Pulse Rate 110 H 109 H 107 H Respiratory Rate 16 14 14 Blood Pressure 105/56 L 91/55 L 94/53 L Pulse Oximetry 96 96 97 08/29/18 05:30 08/29/18 05:45 08/29/18 06:00 Temperature 99.0 F 99.1 F 99.1 F Pulse Rate 108 H 108 H 110 H Respiratory Rate 14 14 22 Blood Pressure 98/53 L 108/55 L 107/53 L Pulse Oximetry 95 93 L 97 08/29/18 06:15 08/29/18 06:30 08/29/18 06:45 Temperature 99.1 F 99.1 F 99.0 F Pulse Rate 110 H 109 H 109 H Respiratory Rate 15 14 14 Blood Pressure 108/56 L 107/52 L 100/54 L Pulse Oximetry 95 95 95 08/29/18 07:00 08/29/18 07:15 08/29/18 07:30 Temperature 99.0 F 98.8 F 98.8 F Pulse Rate 110 H 108 H 109 H Respiratory Rate 14 14 12 Blood Pressure 98/60 L 95/57 L 108/58 L Pulse Oximetry 99 99 98 08/29/18 07:45 08/29/18 08:00 08/29/18 08:15 Temperature 98.8 F 98.8 F 98.8 F Pulse Rate 110 H 109 H 108 H Respiratory Rate 14 14 12 Blood Pressure 102/54 L 90/53 L 88/50 L Pulse Oximetry 95 97 98 08/29/18 08:30 08/29/18 08:45 08/29/18 09:00 Temperature 98.6 F 98.6 F 98.6 F Pulse Rate 109 H 108 H 112 H Respiratory Rate 14 12 16 Blood Pressure 75/50 L 78/50 L 81/52 L Pulse Oximetry 98 97 98 08/29/18 09:15 08/29/18 09:30 08/29/18 09:45 Temperature 98.6 F 98.6 F Pulse Rate 108 H 107 H 108 H Respiratory Rate 14 14 14 Blood Pressure 85/50 L 90/52 L 85/51 L Pulse Oximetry 99 100 99 08/29/18 10:00 08/29/18 10:15 Temperature 97.3 F L Pulse Rate 110 H 110 H Respiratory Rate 12 13 Blood Pressure 86/51 L 94/54 L Pulse Oximetry 98 98 Intake & Output 08/28/18 08/29/18 08/29/18 18:59 06:59 18:59 Intake Total 4678 / 4678 3350 / 3350 300 / 300 Output Total 50 / 50 70 / 70 Balance 4628 / 4628 3280 / 3280 300 / 300 Weight 118.5 kg Intake: IV 3650 / 3650 3350 / 3350 300 / 300 DOPamine 800 MG/500 ML Premix 100 / 100 800 mg In 500 ml @ 3 MCG/KG/MIN 16.875 mls/hr IV.CONT TITRATE PRN Rx#:[id number] Versed Inj 50 mg In 50 ml @ 2 50 / 50 MG/HR 2 mls/hr IV.CONT TITRATE PRN Rx#:[id number] Sodium Bicarbonate 8.4% Inj 150 1999 / 1999 1999 / 1999 200 / 200 MEQ In Sterile Water for Inj 850 ML @ 150 mls/hr IV.CONT . Q6H40M [facility] Rx#:[id number] Pitressin Inj 40 UNIT In D5W 100 / 100 100 / 100 Inj 98 ML @ 0.01 UNITS/MIN 1.5 mls/hr IV.CONT CONT [facility] Rx#: [id number] Levophed Inj 4 MG In NS Inj 246 1000 / 1000 750 / 750 ML @ 2 MCG/MIN 7.5 mls/hr IV. SIG TITRATE PRN Rx#:[id number] Levophed-Dextrose 4 mg/250 ml 250 / 250 Drip 4 mg In 250 ml @ 0 mls/hr IV.SIG .STK-MED ONE Rx#: [id number] fentaNYL 10 mcg/mL Premix Drip 250 / 250 2,500 mcg In 250 ml @ 50 MCG/HR 5 mls/hr IV.SIG TITRATE PRN Rx #:[id number] Flagyl 500 MG Inj 100 ML @ 100 200 / 200 200 / 200 mls/hr IV.SIG Q6H [facility] Rx#: [id number] Intake (Blood Product) Amt 1028 / 1028 Plasma Thawed 5 Day Acda Unit 221 / 221 [id number] Plasma Thawed 5 Day Cp2d Unit 304 / 304 [id number] Plasma Thawed 5 Day Cp2d Unit 205 / 205 [id number] Plasma Thawed 5 Day Cp2d Unit 298 / 298 [id number] Output: Urine 50 / 50 Urine Amount (Catheter) / Indwelling Urethral Catheter Other: # Bowel Movements 0 - Constitutional chronically ill appearing Comments: Critically ill intubated and mechanically ventilated - Routine HEENT Exam Head: Present: normocephalic - Routine Respiratory Exam Present: patient mechanically ventilated - Routine Abdominal Exam Present: normoactive bowel sounds, distended. Absent: guarding, firm - Routine Extremities Exam Present: edema - Routine Skin Exam Present: dry, warm - Urinary Catheter Management Indwelling Urethral Catheter Cath placed during this visit: yes Reason for continuing: Acute urinary retention Insertion date: 08/27/18 Insertion time: 21:15 Results - Labs CBC & Chem 7: 08/29/18 06:45 08/29/18 06:45 Laboratory Results - last 24 hr 08/27/18 08/27/18 08/27/18 20:37 21:03 21:10 WBC RBC Hgb Hct MCV MCH MCHC RDW Plt Count MPV Neut % (Auto) Lymph % (Auto) Vance % (Auto) Eos % (Auto) Baso % (Auto) Neut # (Auto) Lymph # (Auto) Vance # (Auto) Eos # (Auto) Baso # (Auto) WBC Differential Differential Comment Sodium Potassium Chloride Carbon Dioxide Anion Gap BUN Creatinine Estimated GFR POC Glucose Random Glucose Lactic Acid Calcium Prot Corrected Calcium Total Bilirubin AST ALT Alkaline Phosphatase Total Protein Albumin Ur Collection Type Cancelled Urine Color Cancelled Urine Clarity Cancelled Urine pH Cancelled Ur Specific [place] Cancelled Urine Protein Cancelled Urine Glucose (UA) Cancelled Urine Ketones Cancelled Urine Occult Blood Cancelled Urine Nitrate Cancelled Urine Bilirubin Cancelled Urine Ictotest Cancelled Urine Urobilinogen Cancelled Ur Leukocyte Esterase Cancelled Urine RBC Cancelled Urine WBC Cancelled Urine WBC Clumps Cancelled Ur Squamous Epith Cells Cancelled Ur Transition Epith Cell Cancelled Ur Renal Epithelial Cell Cancelled Calcium Carbonate Cryst Cancelled Calcium Oxalate Crystal Cancelled Leucine Crystals Cancelled Cystine Crystals Cancelled Uric Acid Crystals Cancelled Triple Phos Crystals Cancelled Cholesterol Crystals Cancelled Tyrosine Crystals Cancelled Amorphous Sediment Cancelled Urine Bacteria Cancelled Hyaline Casts Cancelled Granular Casts Cancelled Fine Granular Casts Cancelled Coarse Granular Casts Cancelled Waxy Casts Cancelled RBC Casts Cancelled WBC Casts Cancelled Urine Mucus Cancelled Urine Trichomonas Cancelled Urine Yeast Cancelled Ur Yeast w Hyphae Cancelled Urine Sperm Cancelled Ur Oval Fat Bodies Cancelled Micro UA Comment Cancelled Ur Microscopic Review Cancelled Urine Culture Comments Cancelled Urine Collection Time Cancelled Urine Comment Cancelled MTS Gel Crossmatch See Detail See Detail Blood Bank Comment 08/27/18 08/28/18 08/28/18 21:51 12:10 12:10 WBC 12.9 H RBC 2.78 L Hgb 8.6 L D Hct 24.4 L MCV 87.6 MCH 30.9 MCHC 35.3 RDW 17.2 Plt Count 291 MPV 8.0 Neut % (Auto) 86.2 H Lymph % (Auto) 10.3 Vance % (Auto) 2.7 Eos % (Auto) 0.7 Baso % (Auto) 0.1 Neut # (Auto) 11.1 H Lymph # (Auto) 1.3 Vance # (Auto) 0.3 Eos # (Auto) 0.1 Baso # (Auto) 0.0 WBC Differential . Differential Comment Auto diff final Sodium 140 Potassium 3.2 L Chloride 106 Carbon Dioxide 17.9 L Anion Gap 16 H BUN 51 H Creatinine 2.99 H Estimated GFR 15 L POC Glucose Random Glucose 152 H D Lactic Acid Calcium 5.5 L* Prot Corrected Calcium 6.8 L* D Total Bilirubin AST ALT Alkaline Phosphatase Total Protein 4.2 L Albumin Ur Collection Type Urine Color Urine Clarity Urine pH Ur Specific [place] Urine Protein Urine Glucose (UA) Urine Ketones Urine Occult Blood Urine Nitrate Urine Bilirubin Urine Ictotest Urine Urobilinogen Ur Leukocyte Esterase Urine RBC Urine WBC Urine WBC Clumps Ur Squamous Epith Cells Ur Transition Epith Cell Ur Renal Epithelial Cell Calcium Carbonate Cryst Calcium Oxalate Crystal Leucine Crystals Cystine Crystals Uric Acid Crystals Triple Phos Crystals Cholesterol Crystals Tyrosine Crystals Amorphous Sediment Urine Bacteria Hyaline Casts Granular Casts Fine Granular Casts Coarse Granular Casts Waxy Casts RBC Casts WBC Casts Urine Mucus Urine Trichomonas Urine Yeast Ur Yeast w Hyphae Urine Sperm Ur Oval Fat Bodies Micro UA Comment Ur Microscopic Review Urine Culture Comments Urine Collection Time Urine Comment MTS Gel Crossmatch Blood Bank Comment 08/28/18 08/29/18 08/29/18 19:25 06:45 06:45 WBC 8.1 RBC 2.62 L Hgb 8.0 L Hct 23.2 L MCV 88.6 MCH 30.6 MCHC 34.6 RDW 18.2 H Plt Count 228 MPV 8.2 Neut % (Auto) 90.4 H Lymph % (Auto) 6.6 L Vance % (Auto) 2.0 Eos % (Auto) 0.9 Baso % (Auto) 0.1 Neut # (Auto) 7.4 Lymph # (Auto) 0.5 L Vance # (Auto) 0.2 Eos # (Auto) 0.1 Baso # (Auto) 0.0 WBC Differential . Differential Comment Auto diff final Sodium Potassium Chloride Carbon Dioxide Anion Gap BUN Creatinine Estimated GFR POC Glucose Random Glucose Lactic Acid 5.0 H* 6.8 H* Calcium Prot Corrected Calcium Total Bilirubin AST ALT Alkaline Phosphatase Total Protein Albumin Ur Collection Type Urine Color Urine Clarity Urine pH Ur Specific [place] Urine Protein Urine Glucose (UA) Urine Ketones Urine Occult Blood Urine Nitrate Urine Bilirubin Urine Ictotest Urine Urobilinogen Ur Leukocyte Esterase Urine RBC Urine WBC Urine WBC Clumps Ur Squamous Epith Cells Ur Transition Epith Cell Ur Renal Epithelial Cell Calcium Carbonate Cryst Calcium Oxalate Crystal Leucine Crystals Cystine Crystals Uric Acid Crystals Triple Phos Crystals Cholesterol Crystals Tyrosine Crystals Amorphous Sediment Urine Bacteria Hyaline Casts Granular Casts Fine Granular Casts Coarse Granular Casts Waxy Casts RBC Casts WBC Casts Urine Mucus Urine Trichomonas Urine Yeast Ur Yeast w Hyphae Urine Sperm Ur Oval Fat Bodies Micro UA Comment Ur Microscopic Review Urine Culture Comments Urine Collection Time Urine Comment MTS Gel Crossmatch Blood Bank Comment 08/29/18 08/29/18 08/29/18 06:45 09:56 10:40 WBC RBC Hgb Hct MCV MCH MCHC RDW Plt Count MPV Neut % (Auto) Lymph % (Auto) Vance % (Auto) Eos % (Auto) Baso % (Auto) Neut # (Auto) Lymph # (Auto) Vance # (Auto) Eos # (Auto) Baso # (Auto) WBC Differential Differential Comment Sodium 142 Potassium 3.0 L Chloride 104 Carbon Dioxide 20.6 L Anion Gap 17 H BUN 51 H Creatinine 3.01 H Estimated GFR 15 L POC Glucose 63 L 150 H Random Glucose 68 L Lactic Acid Calcium 5.4 L* Prot Corrected Calcium 7.0 L* Total Bilirubin 0.5 AST 38 H ALT 24 Alkaline Phosphatase 97 Total Protein 3.6 L D Albumin 1.1 L Ur Collection Type Urine Color Urine Clarity Urine pH Ur Specific [place] Urine Protein Urine Glucose (UA) Urine Ketones Urine Occult Blood Urine Nitrate Urine Bilirubin Urine Ictotest Urine Urobilinogen Ur Leukocyte Esterase Urine RBC Urine WBC Urine WBC Clumps Ur Squamous Epith Cells Ur Transition Epith Cell Ur Renal Epithelial Cell Calcium Carbonate Cryst Calcium Oxalate Crystal Leucine Crystals Cystine Crystals Uric Acid Crystals Triple Phos Crystals Cholesterol Crystals Tyrosine Crystals Amorphous Sediment Urine Bacteria Hyaline Casts Granular Casts Fine Granular Casts Coarse Granular Casts Waxy Casts RBC Casts WBC Casts Urine Mucus Urine Trichomonas Urine Yeast Ur Yeast w Hyphae Urine Sperm Ur Oval Fat Bodies Micro UA Comment Ur Microscopic Review Urine Culture Comments Urine Collection Time Urine Comment MTS Gel Crossmatch Blood Bank Comment Microbiology 08/27/18 20:42 Blood - Peripheral Aerobic Blood Culture - Preliminary No growth in 2 days 08/27/18 20:42 Blood - Peripheral Anaerobic Blood Culture - Preliminary No growth in 2 days 08/27/18 20:42 Blood - Peripheral Aerobic Blood Culture - Preliminary No growth in 2 days 08/27/18 20:42 Blood - Peripheral Anaerobic Blood Culture - Preliminary No growth in 2 days Assessment and Plan (1) Acute blood loss anemia Status: Acute Code(s): D62 - Acute posthemorrhagic anemia (2) GI bleed Status: Acute Code(s): K92.2 - Gastrointestinal hemorrhage, unspecified - Plan This patient is a 73-year-old female who presented to the emergency room at [facility] on 08/27/2018 for evaluation of altered mental status. [facility] with report that she had been experiencing nausea, vomiting and diarrhea for 3 days. Patient has history of GI bleed, and GERD. Patient also has history of hypertension, hyperlipidemia, chronic kidney disease atrial fibrillation on Eliquis and CHF. This patient was intubated in the emergency room. Upon consultation, patient is intubated via ET tube to ventilator. Dopamine, fentanyl, vasopressin, norepinephrine infusions being administered. Protonix IV twice daily. On admission hemoglobin was noted to be 6.5 and 20. Patient then received 3 units of packed cells. 08/28/2018 hemoglobin 11.6 and 34 INR 1.5. 08/28/2018 at 1210 hemoglobin 8.6 hematocrit 24.4. NG in place to low intermittent wall suction with small amount of clear to tea colored drainage. No obvious bleeding noted or reported. Patient has been transfused with 4 units of fresh frozen plasma and 3 units of packed RBCs. Our service has been consulted to evaluate patient for GI bleeding. GI bleed 07/21/2018 colonoscopy revealed the following findings: 1. Moderate diverticulosis was noted in the sigmoid colon 2. Circumferential diffuse colitis was found in the transverse colon, descending colon, and sigmoid colon; The mucosa was congested, edematous, erythematous, friable, nodular and had granularity; multiple biopsies were performed using cold forceps 3. Retroflexed views revealed internal hemorrhoids 4. Retroflexed views revealed small internal hemorrhoids 5. Revealed external hemorrhoids 08/27/2018 upon admission hemoglobin 6.5 hematocrit 20.4, 08/28/2018 hemoglobin 11.6 hematocrit 34, hemoglobin 8.6 hematocrit 24 08/29/2018 GI bleed Patient intubated and mechanically ventilated. Patient is septic, critically ill and unstable to have procedures done at this time. No active bleeding reported Hemoglobin 8.0 hematocrit 23.2 Total bilirubin 0.5 AST 38 ALT 24 alk phos 97 Plan -NG tube -N.p.o. -Monitor for bleeding -Transfuse if required -Monitor hemoglobin and hematocrit -Endoscopic evaluation when stable -Continue PPI -Avoid anticoagulants -Supportive care -GI will advise as needed, will sign off at this time This patient has been seen by myself and Dr. Huffman and this note is written on his behalf - Attending Attestation Dr. Huffman
[2018-08-29 15:05] VITALS: TEMP 98.2
[2018-08-29] MEDS ORDERED: Dextrose 5% in Water Inj 1,000 ML IV.CONT SCH (18:00)
[2018-08-30] MEDS ORDERED: Levofloxacin 500 mg Premix Inj 500 MG/100 ML PIGGYBACK IV.SIG SCH (01:00)
[2018-08-30] MEDS: Insulin NovoLOG Aspart Correctional Sugar Inj SQ SCH ×3 (02:54→11:02)
[2018-08-30] MEDS: Oral Hygiene Kit OROPHARYNG SCH ×3 (02:57→11:02)
[2018-08-30] MEDS: Chlorhexidine Gluconate 2% 1 Pack (2 Cloths) TOPICAL SCH (04:04)
[2018-08-30] MEDS: Norepinephrine Inj 4 MG in Sodium Chlor 0.9% Inj 246 ML IV.SIG PRN (05:30)
[2018-08-30 06:04] LABS: Baso % (Auto) 0.2 % (0.0-2.0); Eos % (Auto) 0.5 % (0.0-4.0); Hemoglobin 8.1 gm/dL (11.6-15.3); Lymph # (Auto) 1.3 th/mm3 (1.0-4.8); Lymph % (Auto) 12.5 % (9.0-44.0); Mean Corpuscular HGB Conc 33.8 % (32.0-36.0); Mean Corpuscular Hemoglobin 30.2 pg (27.0-34.0); Mean Corpuscular Volume 89.3 fL (80.0-100.0); Mean Platelet Volume 8.1 fL (7.0-11.0); Mono # (Auto) 0.1 th/mm3 (0.0-0.9); Neut # (Auto) 8.7 th/mm3 (1.8-7.7); Neut % (Auto) 85.8 % (16.0-70.0); Platelet Count 201 th/mm3 (150-450); Red Blood Count 2.68 mil/mm3 (4.00-5.30); Red Cell Distribution Width 18.7 % (11.6-17.2); White Blood Count 10.2 th/mm3 (4.0-11.0)
[2018-08-30 06:31] LABS: Calcium 5.3 mg/dL (8.5-10.1); Carbon Dioxide 17.6 meq/L (21.0-32.0); Potassium 3.1 meq/L (3.5-5.1)
[2018-08-30 07:01] LABS: Total Protein 3.6 g/dL (6.4-8.2)
[2018-08-30 07:21] LABS: Calcium-Albumin Corrected 6.8 mg/dL (8.5-10.1)
--- NOTE | 2018-08-30 08:17 | P.PNCC ---
Subjective Subjective Remarks/Hospital Course: 73-year-old female presents for an evaluation of altered mental status. Patient has been this way for approximately 3 days. Per EMS report patient has been lethargic but arouses easily. senior living reported to EMS patient has had nausea, vomiting, diarrhea times 3 days. Patient has a history of GI bleed x2 in the past. Past medical history significant for GERD, GI bleed, hypertension, hyperlipidemia, chronic kidney disease, A. fib, CHF. Patient is on Eliquis. The patient was intubated by ED attending for an airway protection in the emergency department, as well as the right femoral central line catheter was placed. 08/28: The patient is now received 8 continuous hours of aggressive resuscitation with mechanical ventilation, 7 L of intravascular fluid administration, broad-spectrum antibiotic coverage, replacement of electrolyte deficits, attempted correction of acid-base deficits, and continuous manipulation of vasopressor agents including dopamine and norepinephrine and vasopressin. She continues with a profound metabolic acidosis and has developed an urea with acute kidney injury on top of underlying chronic kidney disease. Despite best efforts she continues to deteriorate and not respond well to our aggressive interventional therapy. I have spoke with the patient's POA for [facility], Meggan Johnson, in [place] and she is adamant that we not resort to dialysis and not do chest compressions should her heart stop. Short of that she would like to continue drug support and mechanical ventilation. 08/29: Patient continues to deteriorate requiring increasing amounts of high dose vasopressor support. The ongoing metabolic acidosis precludes us from continuing this course. I will attempt to substitute volume for vasopressor and see if we cannot recover the kidneys. There is no obvious source of infection and her white count is returned to normal. She is too unstable for a CAT scan of the abdomen but the abdomen remains soft and nontender. She is essentially anuric at this point and would likely require dialysis should she survive. 08/30: Remains essentially an uric and peripheral perfusion remains poor. No positive cultures yet, we will continue broad antibiotic coverage. Oxygenation and gas exchange remain impaired. Metabolic acidosis persists. Update: Family has arrived at 1005 and requests that all artificial support be discontinued. Patient has a systolic blood pressure of 47 now and no chance for recovery. She is in profound irreversible shock and has not responded to our aggressive early medical therapy. The request for compassionate extubation is highly reasonable in this end-stage setting. The family has a good appreciation for the severity of her illness. Objective Vital Signs / I&O: Vital Signs 08/29/18 08:15 08/29/18 08:30 08/29/18 08:45 Temperature 98.8 F 98.6 F 98.6 F Pulse Rate 108 H 109 H 108 H Respiratory Rate 12 14 12 Blood Pressure 88/50 L 75/50 L 78/50 L Pulse Oximetry 98 98 97 08/29/18 09:00 08/29/18 09:15 08/29/18 09:30 Temperature 98.6 F 98.6 F 98.6 F Pulse Rate 112 H 108 H 107 H Respiratory Rate 16 14 14 Blood Pressure 81/52 L 85/50 L 90/52 L Pulse Oximetry 98 99 100 08/29/18 09:45 08/29/18 10:00 08/29/18 10:15 Temperature 97.3 F L Pulse Rate 108 H 110 H 110 H Respiratory Rate 14 12 13 Blood Pressure 85/51 L 86/51 L 94/54 L Pulse Oximetry 99 98 98 08/29/18 10:30 08/29/18 10:45 08/29/18 11:00 Temperature 98.8 F Pulse Rate 108 H 105 H 103 H Respiratory Rate 12 12 14 Blood Pressure 102/55 L 100/51 L 100/51 L Pulse Oximetry 93 L 93 L 96 08/29/18 11:15 08/29/18 11:30 08/29/18 11:45 Temperature Pulse Rate 101 H 99 H 101 H Respiratory Rate 14 14 14 Blood Pressure 94/55 L 96/52 L 97/51 L Pulse Oximetry 98 97 96 08/29/18 12:00 08/29/18 12:15 08/29/18 12:30 Temperature 98.7 F Pulse Rate 101 H 102 H 101 H Respiratory Rate 12 11 L 14 Blood Pressure 102/50 L 99/49 L 104/50 L Pulse Oximetry 97 97 97 08/29/18 12:45 08/29/18 13:00 08/29/18 13:15 Temperature Pulse Rate 97 H 97 H 96 H Respiratory Rate 14 14 11 L Blood Pressure 104/55 L 100/51 L 82/50 L Pulse Oximetry 97 97 96 08/29/18 13:30 08/29/18 13:45 08/29/18 14:00 Temperature Pulse Rate 97 H 94 H 94 H Respiratory Rate 13 13 14 Blood Pressure 85/53 L 89/52 L 89/54 L Pulse Oximetry 97 97 97 08/29/18 14:15 08/29/18 14:30 08/29/18 14:45 Temperature Pulse Rate 92 H 94 H 93 H Respiratory Rate 13 14 14 Blood Pressure 90/53 L 93/55 L 91/52 L Pulse Oximetry 97 97 97 08/29/18 15:00 08/29/18 15:15 08/29/18 15:17 Temperature 98.2 F Pulse Rate 92 H 93 H 95 H Respiratory Rate 13 13 13 Blood Pressure 90/55 L 89/40 L 98/55 L Pulse Oximetry 97 97 97 08/29/18 15:30 08/29/18 15:38 08/29/18 15:42 Temperature Pulse Rate 94 H 103 H 103 H Respiratory Rate 17 21 21 Blood Pressure 83/48 L 105/54 L Pulse Oximetry 94 L 93 L 08/29/18 15:44 08/29/18 15:45 08/29/18 15:47 Temperature Pulse Rate 69 97 H Respiratory Rate 21 22 15 Blood Pressure 104/54 L Pulse Oximetry 96 97 99 08/29/18 15:54 08/29/18 16:00 08/29/18 16:02 Temperature 98.2 F Pulse Rate 96 H 98 H 98 H Respiratory Rate 10 L 10 L Blood Pressure 84/50 L 84/50 L Pulse Oximetry 98 98 08/29/18 16:15 08/29/18 16:17 08/29/18 16:30 Temperature Pulse Rate 96 H 96 H 94 H Respiratory Rate 14 11 L 14 Blood Pressure 80/55 L Pulse Oximetry 98 98 98 08/29/18 16:32 08/29/18 16:45 08/29/18 16:47 Temperature Pulse Rate 93 H 97 H 97 H Respiratory Rate 14 14 15 Blood Pressure 87/54 L 90/52 L Pulse Oximetry 98 97 97 08/29/18 17:00 08/29/18 17:02 08/29/18 17:15 Temperature Pulse Rate 97 H 98 H 96 H Respiratory Rate 13 14 13 Blood Pressure 88/50 L Pulse Oximetry 98 97 97 08/29/18 17:16 08/29/18 17:17 08/29/18 17:30 Temperature 98.2 F Pulse Rate 96 H 96 H 95 H Respiratory Rate 14 14 14 Blood Pressure 83/51 L Pulse Oximetry 97 98 98 08/29/18 17:32 08/29/18 17:45 08/29/18 17:47 Temperature Pulse Rate 94 H 95 H 94 H Respiratory Rate 12 12 14 Blood Pressure 99/55 L 109/53 L Pulse Oximetry 98 98 98 08/29/18 18:00 08/29/18 18:02 08/29/18 18:15 Temperature Pulse Rate 92 H 94 H 91 H Respiratory Rate 13 12 14 Blood Pressure 97/56 L 97/56 L Pulse Oximetry 98 98 98 08/29/18 18:17 08/29/18 18:30 08/29/18 18:32 Temperature Pulse Rate 93 H 93 H 92 H Respiratory Rate 13 13 11 L Blood Pressure 100/50 L 102/59 L Pulse Oximetry 98 97 97 08/29/18 18:45 08/29/18 18:47 08/29/18 19:00 Temperature Pulse Rate 91 H 95 H 94 H Respiratory Rate 11 L 13 12 Blood Pressure 102/50 L 105/52 L Pulse Oximetry 97 96 96 08/29/18 19:02 08/29/18 19:15 08/29/18 19:17 Temperature Pulse Rate 92 H 92 H 92 H Respiratory Rate 12 12 12 Blood Pressure 105/52 L 88/52 L Pulse Oximetry 97 97 97 08/29/18 19:30 08/29/18 19:32 08/29/18 19:45 Temperature Pulse Rate 92 H 92 H 93 H Respiratory Rate 11 L 11 L 12 Blood Pressure 90/53 L Pulse Oximetry 97 97 98 08/29/18 19:47 08/29/18 19:59 08/29/18 20:00 Temperature Pulse Rate 93 H 92 H Respiratory Rate 12 13 11 L Blood Pressure 94/51 L Pulse Oximetry 98 99 98 08/29/18 20:02 08/29/18 20:15 08/29/18 20:17 Temperature Pulse Rate 93 H 86 94 H Respiratory Rate 12 12 12 Blood Pressure 89/48 L 86/49 L Pulse Oximetry 98 97 97 08/29/18 20:30 08/29/18 20:32 08/29/18 20:45 Temperature Pulse Rate 92 H 92 H 93 H Respiratory Rate 12 12 12 Blood Pressure 101/55 L Pulse Oximetry 98 97 98 08/29/18 20:47 08/29/18 21:00 08/29/18 21:02 Temperature Pulse Rate 93 H 93 H 93 H Respiratory Rate 12 12 12 Blood Pressure 99/48 L 92/51 L Pulse Oximetry 99 97 97 08/29/18 21:15 08/29/18 21:17 08/29/18 21:30 Temperature Pulse Rate 93 H 93 H 95 H Respiratory Rate 12 12 12 Blood Pressure 90/52 L Pulse Oximetry 98 97 97 08/29/18 21:32 08/29/18 21:45 08/29/18 21:47 Temperature Pulse Rate 94 H 93 H 95 H Respiratory Rate 12 12 12 Blood Pressure 97/53 L 97/55 L Pulse Oximetry 97 97 97 08/29/18 22:00 08/29/18 22:02 08/29/18 22:15 Temperature Pulse Rate 90 90 89 Respiratory Rate 12 12 13 Blood Pressure 103/56 L Pulse Oximetry 98 98 98 08/29/18 22:17 08/29/18 22:30 08/29/18 22:32 Temperature Pulse Rate 89 87 88 Respiratory Rate 12 14 12 Blood Pressure 101/48 L 107/54 L Pulse Oximetry 98 99 99 08/29/18 22:45 08/29/18 22:47 08/29/18 23:00 Temperature Pulse Rate 87 87 87 Respiratory Rate 12 12 13 Blood Pressure 97/52 L Pulse Oximetry 98 98 98 08/29/18 23:02 08/29/18 23:15 08/29/18 23:17 Temperature Pulse Rate 86 86 86 Respiratory Rate 14 12 12 Blood Pressure 87/50 L 80/50 L Pulse Oximetry 98 98 98 08/29/18 23:30 08/29/18 23:32 08/29/18 23:45 Temperature Pulse Rate 86 86 87 Respiratory Rate 12 13 12 Blood Pressure 94/50 L Pulse Oximetry 99 99 98 08/29/18 23:47 08/29/18 23:49 08/29/18 23:55 Temperature Pulse Rate 88 86 Respiratory Rate 12 13 Blood Pressure 86/51 L Pulse Oximetry 98 98 08/30/18 00:00 08/30/18 00:02 08/30/18 00:15 Temperature Pulse Rate 89 91 H 80 Respiratory Rate 12 12 12 Blood Pressure 89/45 L Pulse Oximetry 98 98 98 08/30/18 00:17 08/30/18 00:30 08/30/18 00:32 Temperature Pulse Rate 87 90 88 Respiratory Rate 12 12 14 Blood Pressure 92/55 L 82/42 L Pulse Oximetry 98 99 98 08/30/18 00:45 08/30/18 00:47 08/30/18 01:00 Temperature Pulse Rate 89 88 85 Respiratory Rate 12 12 12 Blood Pressure 94/53 L Pulse Oximetry 98 99 99 08/30/18 01:02 08/30/18 01:15 08/30/18 01:17 Temperature Pulse Rate 85 85 84 Respiratory Rate 12 14 12 Blood Pressure 89/54 L 92/46 L Pulse Oximetry 99 99 98 08/30/18 01:30 08/30/18 01:32 08/30/18 01:45 Temperature Pulse Rate 84 83 83 Respiratory Rate 13 14 14 Blood Pressure 100/49 L Pulse Oximetry 98 99 99 08/30/18 01:47 08/30/18 02:00 08/30/18 02:02 Temperature Pulse Rate 82 83 83 Respiratory Rate 13 13 12 Blood Pressure 100/49 L 94/48 L Pulse Oximetry 99 98 98 08/30/18 02:15 08/30/18 02:17 08/30/18 02:30 Temperature Pulse Rate 82 82 81 Respiratory Rate 12 12 12 Blood Pressure 83/46 L Pulse Oximetry 98 98 98 08/30/18 02:32 08/30/18 02:45 08/30/18 02:47 Temperature Pulse Rate 80 82 81 Respiratory Rate 12 14 12 Blood Pressure 90/54 L 98/49 L Pulse Oximetry 98 98 98 08/30/18 03:00 08/30/18 03:02 08/30/18 03:15 Temperature Pulse Rate 80 82 81 Respiratory Rate 12 12 12 Blood Pressure 97/50 L Pulse Oximetry 98 98 98 08/30/18 03:17 08/30/18 03:30 08/30/18 03:32 Temperature Pulse Rate 81 81 81 Respiratory Rate 13 12 12 Blood Pressure 99/50 L 106/50 L Pulse Oximetry 99 99 99 08/30/18 03:45 08/30/18 03:47 08/30/18 04:00 Temperature Pulse Rate 80 80 79 Respiratory Rate 13 12 12 Blood Pressure 98/47 L Pulse Oximetry 99 98 98 08/30/18 04:02 08/30/18 04:15 08/30/18 04:17 Temperature Pulse Rate 80 78 78 Respiratory Rate 12 13 12 Blood Pressure 98/51 L 97/46 L Pulse Oximetry 98 98 98 08/30/18 04:29 08/30/18 04:30 08/30/18 04:32 Temperature Pulse Rate 80 79 Respiratory Rate 13 12 13 Blood Pressure 83/50 L Pulse Oximetry 98 99 98 08/30/18 04:45 08/30/18 04:47 08/30/18 05:00 Temperature Pulse Rate 77 77 78 Respiratory Rate 13 12 12 Blood Pressure 79/45 L Pulse Oximetry 98 98 99 08/30/18 05:02 08/30/18 05:15 08/30/18 05:17 Temperature Pulse Rate 78 77 77 Respiratory Rate 14 12 12 Blood Pressure 80/46 L 81/47 L Pulse Oximetry 99 98 98 08/30/18 05:30 08/30/18 05:32 08/30/18 05:45 Temperature Pulse Rate 77 76 75 Respiratory Rate 13 12 12 Blood Pressure 84/54 L Pulse Oximetry 98 98 98 08/30/18 05:47 08/30/18 06:00 08/30/18 06:02 Temperature Pulse Rate 71 77 78 Respiratory Rate 13 12 12 Blood Pressure 90/51 L 93/52 L Pulse Oximetry 96 98 98 Intake & Output 08/29/18 08/30/18 08/30/18 18:59 06:59 18:59 Intake Total 850 / 850 900 / 900 Output Total 65 / 65 Balance 835 / 835 835 / 835 Weight 108.2 kg Intake: IV 850 / 850 900 / 900 DOPamine 800 MG/500 ML Premix 100 / 100 800 mg In 500 ml @ 3 MCG/KG/MIN 16.875 mls/hr IV.CONT TITRATE PRN Rx#:[id number] NS Inj 1,000 ML @ 125 mls/hr IV 100 / 100 .CONT .Q8H [facility] Rx#:[id number] Sodium Bicarbonate 8.4% Inj 150 200 / 200 MEQ In Sterile Water for Inj 850 ML @ 150 mls/hr IV.CONT . Q6H40M [facility] Rx#:[id number] Pitressin Inj 40 UNIT In D5W 100 / 100 Inj 98 ML @ 0.01 UNITS/MIN 1.5 mls/hr IV.CONT CONT [facility] Rx#: [id number] Levaquin 500 mg Premix Inj 500 100 / 100 mg In 100 ml @ 100 mls/hr IV. SIG Q48H [facility] Rx#:[id number] Levophed Inj 4 MG In NS Inj 246 250 / 250 500 / 500 ML @ 2 MCG/MIN 7.5 mls/hr IV. SIG TITRATE PRN Rx#:[id number] Flagyl 500 MG Inj 100 ML @ 100 200 / 200 200 / 200 mls/hr IV.SIG Q6H [facility] Rx#: [id number] Oral 0 / 0 0 / 0 Output: Urine 50 / 50 Urine Amount (Catheter) Indwelling Urethral Catheter Other: # Bowel Movements 0 Result Diagrams: 08/30/18 05:50 08/30/18 05:50 Objective Remarks: - Constitutional On mechanical ventilation, appropriately sedated, morbidly obese, chronically ill appearing, diaphoretic, remains poorly perfused - Routine HEENT Exam Head: Present: normocephalic, atraumatic Eye: Present: PERRL - Routine Neck Exam Present: supple, full ROM. Orotracheal intubation. absent: JVD, carotid bruit - Routine Respiratory Exam Present: patient mechanically ventilated. Scattered rhonchi, acceptable bilateral air entry. absent: accessory muscle use, stridor, wheezes - Routine Cardiovascular Exam Present: S1, S2, irregularly irregular, neck veins not distended - Routine Abdominal Exam Present: soft, normoactive bowel sounds, moderate tenderness. Absent: distended - Routine Extremities Exam Tepid extremities, poorly perfused absent: cyanosis, clubbing, edema - Routine Skin Exam Absent: intact, cyanosis, erythema - Routine Neurological Exam Present: altered mental status, unresponsive to stimulation. Sedated for vent synchrony Assessment and Plan - Assessment and Plan Plan: Respiratory failure -Intubated for an airway protection -SBT daily when more alert and hemodynamically stable -Vent bundle -DuoNeb's as needed -PRVC mode -Serial ABG -Deteriorating gas exchange 08/30 GI bleed -Protonix IV twice daily -Reverse Eliquis -Patient received [facility] in the ED -Monitor H&H -Gastroenterology consultation -Serial abdominal exam, remains benign Hypotension -Severe dehydration -Aggressive IV fluid resuscitation -Dopamine as needed to keep map above 65 -Reduce Levophed upper range 12 mics per minute -Continue hydration with isotonic crystalloid Metabolic acidosis -Severe diarrhea -Levaquin Flagyl empirically -Aggressive IV fluid resuscitation -Sodium bicarbonate IV, hold Acute on chronic kidney failure -Dehydration -Due to volume loss -Strict I's and O's -Monitor creatinine and electrolytes -IV fluids -Anuric Atrial fibrillation -Rate controlled -Telemetry -Sustained tachycardia DVT GI prophylaxis -Teds SCDs -Hold pharmacological DVT prophylaxis due to acute GI bleed -Protonix IV twice daily Overall impression: This woman is critically ill with distributive shock possibly related to an intra-abdominal process. The initial workup is negative for obvious sepsis source but she continues to be severely hypotensive with large intravenous fluid requirements. Despite early aggressive resuscitation she is not responding to our therapy and continues with a profound metabolic acidosis. We will continue aggressive resuscitation over the ensuing hours and keep the family apprised of these dire straits. She has deteriorated clinically over the past 24 hours. At this juncture her renal function is severely compromised. It will be necessary to reduce her vasopressor dosing and try to compensate with volume. She remains in profound shock and is unlikely to survive this illness. I have talked extensively with her only relative in the area, who is the sister of her power of senior attorney now living in [place]. She is aware that the patient is in desperate condition and may well not survive this illness. She and her sister have requested that we not go to extreme measures and we talked specifically about not doing chest compressions should her heart stop. I will make her alternate CODE STATUS. Critical care time 44 minutes aside from procedures.
[2018-08-30] MEDS: Chlorhexidine 0.12% Oral Kit 15 ML UDC OROPHARYNG SCH (08:36)
[2018-08-30] MEDS: Senna/Docusate Sodium 8.6/50 MG Tablet PO SCH (08:37)
[2018-08-30] MEDS: Pantoprazole Inj 40 MG Vial IV.PUSH SCH (11:01)
[2018-08-30 16:59] VITALS: BP 36/17; PULSE 0; RESP 0; O2SAT 83
--- NOTE | 2018-11-23 10:47 | P.DS ---
Date of admission: 08/27/18 20:53 Primary care physician: Do Sarah Barreto Attending physician on discharge: Omero Grewal Brief History from admission: 73-year-old female presents for an evaluation of altered mental status. Patient has been this way for approximately 3 days. Per EMS report patient has been lethargic but arouses easily. senior care reported to EMS patient has had nausea, vomiting, diarrhea times 3 days. Patient has a history of GI bleed x2 in the past. Past medical history significant for GERD, GI bleed, hypertension, hyperlipidemia, chronic kidney disease, A. fib, CHF. Patient is on Eliquis. The patient was intubated by ED attending for an airway protection in the emergency department, as well as the right femoral central line catheter was placed. Patient update on day of discharge: Family elected for withdrawal of artificial support and she naturally at 1620 hours on 08/30/2018. DS: Diagnosis - Discharge Diagnosis (1) RUDY (acute kidney injury) Status: Acute (2) Acute blood loss anemia Status: Acute (3) Acute renal failure (ARF) Status: Acute (4) GI bleed Status: Acute (5) Hypotension due to blood loss Status: Acute (6) Metabolic acidosis Status: Acute DS: Summary Hospital Course: 73-year-old female presents for an evaluation of altered mental status. Patient has been this way for approximately 3 days. Per EMS report patient has been lethargic but arouses easily. senior care reported to EMS patient has had nausea, vomiting, diarrhea times 3 days. Patient has a history of GI bleed x2 in the past. Past medical history significant for GERD, GI bleed, hypertension, hyperlipidemia, chronic kidney disease, A. fib, CHF. Patient is on Eliquis. The patient was intubated by ED attending for an airway protection in the emergency department, as well as the right femoral central line catheter was placed. 08/28: The patient is now received 8 continuous hours of aggressive resuscitation with mechanical ventilation, 7 L of intravascular fluid administration, broad-spectrum antibiotic coverage, replacement of electrolyte deficits, attempted correction of acid-base deficits, and continuous manipulation of vasopressor agents including dopamine and norepinephrine and vasopressin. She continues with a profound metabolic acidosis and has developed an urea with acute kidney injury on top of underlying chronic kidney disease. Despite best efforts she continues to deteriorate and not respond well to our aggressive interventional therapy. I have spoke with the patient's POA for healthcare, Meggan Johnson, in [place] and she is adamant that we not resort to dialysis and not do chest compressions should her heart stop. Short of that she would like to continue drug support and mechanical ventilation. 08/29: Patient continues to deteriorate requiring increasing amounts of high dose vasopressor support. The ongoing metabolic acidosis precludes us from continuing this course. I will attempt to substitute volume for vasopressor and see if we cannot recover the kidneys. There is no obvious source of infection and her white count is returned to normal. She is too unstable for a CAT scan of the abdomen but the abdomen remains soft and nontender. She is essentially anuric at this point and would likely require dialysis should she survive. 08/30: Remains essentially an uric and peripheral perfusion remains poor. No positive cultures yet, we will continue broad antibiotic coverage. Oxygenation and gas exchange remain impaired. Metabolic acidosis persists. Update: Family has arrived at 1005 and requests that all artificial support be discontinued. Patient has a systolic blood pressure of 47 now and no chance for recovery. She is in profound irreversible shock and has not responded to our aggressive early medical therapy. The request for compassionate extubation is highly reasonable in this end-stage setting. The family has a good appreciation for the severity of her illness. - Time Spent with Patient Total time spent providing and/or coordinating discharge services: Greater than 30 minutes - Quality: VTE Deep Vein Thrombosis/Pulmonary Embolism Present on Admission: No Exam Narrative: Results Procedures completed during hospitalization: See summary - Impressions ITS Impressions Chest X-Ray 08/27/18 21:01 CONCLUSION: 1. ET tube tip is within 2 cm of the fred and needs to be withdrawn 1 cm. 2. Patchy infiltrates in the left lower lung. Discharge Plan - Discharge Disposition Patient Disposition: 20 - Discharge Details Date/Time: 08/30/18 18:20 - Physicians Team Primary Care Provider: Do Sarah Barreto Attending Provider: Stew Merino Other Providers: Oanh Felipe MD ; Aga Olsen MD ; Dione Parham
== END 2018-08-30 18:20 | disposition expired | DRG 208 ==
LOC: NEPC 19:27 → NEDA 20:53 → N03 22:58
PROVIDERS: ADMIT Internal Medicine Critical Care Medicine; ATTEND Internal Medicine Critical Care Medicine
CPT/HCPCS: 31500; 36430; 36556; 36569; 36600; 71010; 71045; 80048; 80053; 81001; 82803; 82805; 82948; 82962; 83520; 83605; 83735; 83880; 84100; 84155; 85025; 85610; 85730; 86850; 86900; 86901; 86920; 86923; 86927; 87040; 87493; 87641; 93005; 94002; 94003; 94656; 94657; 99291; C9113; C9132; C9503; J1265; J1956; J2250; J2543; J3010; J3370; J3430; J3475; J3590; J7030; J7050; J7070; P9016; P9017